=== PATIENT | female | born 2000 | race Caucasian/White ===

== ENCOUNTER 2024-02-18 07:24 | Observation (INO) | payer MEDICAID, SELFPAY ==
[2024-02-18 07:46] VITALS: BP 123/65; PULSE 110
[2024-02-18 08:46] LABS: Bilirubin Urine NEGATIVE (NEGATIVE); Blood Urine NEGATIVE (NEGATIVE); Clarity Urine CLEAR (CLEAR); Color Urine LT. YELLOW (YELLOW); Glucose Urine UA NEGATIVE (NEGATIVE); Ketones Urine NEGATIVE (NEGATIVE); Leukocyte Esterase Urine NEGATIVE (NEGATIVE); Nitrite Urine NEGATIVE (NEGATIVE); Protein Urine NEGATIVE (NEG/TRACE); Specific Gravity Urine 1.015 (1.005-1.025); Urobilinogen Urine 0.2 EU/dL (0.2-1.0); pH Urine 7.5 (5.0-9.0)
[2024-02-18 08:48] LABS: Urine Microscopic Indicated NO
[2024-02-18 08:52] VITALS: BP 115/69; PULSE 93
--- NOTE | 2024-02-18 10:15 | PC.NURSE ---
0735- Pt arrives to [facility] via ambulatory with support person. Pt complaining of MADSEN and upper extremities tingling upon awakening this AM. Pt is a pt of OB in [place]. Pt states she would like to transfer care to . Pt denies risk factors with this . Pt reports having sinus issues since Thanksgiving w/o any treatment. Pt denies pre-eclampsia history or BP issues; Pt reports having some epigastric pain with movement and blurry vision at times. Pt given urine cup for sample.
--- NOTE | 2024-02-18 11:25 | PC.NURSE ---
1000- Pt [facility] discharge instructions given. Pt verbalizes understanding. Prescriptions given to pt.Pt discharged home.
== END 2024-02-18 10:00 | disposition home or self-care (01) ==
PROVIDERS: Admitting Provider Obstetrics & Gynecology; Visit Provider Obstetrics & Gynecology
DX: O26.893 Other specified pregnancy related conditions, third trimester (principal); R51.9 Headache, unspecified; R20.2 Paresthesia of skin; Z3A.30 30 weeks gestation of pregnancy
CPT/HCPCS: 59025; 81003; G0378; G0379

== ENCOUNTER 2024-02-26 17:38 | Observation (INO) | payer MEDICAID, SELFPAY ==
[2024-02-26 17:42] VITALS: O2SAT 99
--- OUTSIDE RECORDS SUMMARY | 2024-02-26 17:43 | XMS_ITS | CCD ---
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 09/16/2023 08:42:34 09/16/2023 08:42:34 RN Exam Complete 09/16/2023 08:36:23 09/16/2023 08:41:54 09/16/2023 08:41:54 Registration Complete 09/16/2023 08:38:39 09/16/2023 08:38:39 09/16/2023 08:38:39 Reg Complete Request 09/16/2023 08:38:39 Reg Bed Request Complete 09/16/2023 08:38:39 09/16/2023 08:38:39 09/16/2023 08:38:39 Registration Request 09/16/2023 08:42:34 Pending Labs Complete 09/16/2023 08:43:57 09/16/2023 09:10:32 Lab Complete 09/16/2023 08:43:57 09/16/2023 09:10:32 Urine Collect Complete 09/16/2023 08:43:57 09/16/2023 09:10:32 Dr Exam Complete 09/16/2023 08:44:01 09/16/2023 08:44:01 09/16/2023 08:44:01 Discharge Complete 09/16/2023 09:35:04 09/16/2023 09:41:47 09/16/2023 09:41:47 Transfer Complete 09/16/2023 09:41:47 09/16/2023 09:41:47 09/16/2023 09:41:47 ADDRESS: [address] [place] [address] [address] [facility] [id number] PHYS DOC NOTES: MEDICAL INFORMATION: Prescriptions Given: Medications to Continue with No Changes Other Medications aripiprazole (aripiprazole 5 mg Tab) 1 Tablets By Mouth every day. Refills: 2. lactobacillus acidophilus (Acidophilus Probiotic Blend) PATIENT EDUCATION INFORMATION: Instructions: Care; Morning Sickness Follow up: With: Address: When: Abdias Mccann [facility], [facility] [address], [place] [address] Business (1) In 3 days 09/19/2023 With: Address: When: Pari Underwood In 3 days DIAGNOSIS: Nausea/vomiting in ; Normal [facility] ED Note-Physicianon 09-16-19 ED Note-Physician ED Note-Physician Basic Information Time Seen: Mikel Stewart PA-C 09/16/2023 08:42 Chief Complaint pt states had a misleading prenancy test and just wants to get confirmation. LMP 5/16/24. pt denies any vaginal bleeding or pain History of Present Illness Patient is a 23-year-old female that presents today for evaluation of possible . She states that she had a misleading test at home and could not tell if it was positive or negative so she wanted to get tested here for this. She does state that she had a previous and has had similar symptoms to when she was back then feeling a little bit more tired than what she normally is as well as having some mild suprapubic tenderness. She denies any dysuria or urgency but does admit to increased urinary frequency. She denies any fevers, body aches, chills. She admits to mild nausea but no episodes of vomiting. Denies diarrhea, shortness of breath, dyspnea, chest pain. She denies any vaginal bleeding or pain. Review of Systems No other aggravating or relieving factors no other associated symptoms no other prior treatments or complaints. Family: Reviewed and noncontributory Social: lives at home Review of systems negative unless otherwise specified in the HPI. Physical Exam Vitals & Measurements T: 36.8 ?C(Oral) HR: 76(Peripheral) RR: 18 BP: 126/78 SpO2: 100% HT: 160 cm WT: 61.2 kg BMI: 23.91 General: The patient appears well and in no apparent distress. Patient is resting comfortably on cart. Skin: Warm, dry, no pallor noted. Head: Normocephalic, atraumatic Neck: No JVD Eye: PERRLA, EOMI ENT: Moist mucus membranes Cardiovascular: Regular rate and rhythm. Normal peripheral perfusion Respiratory: CTA bilaterally. No respiratory distress no accessory muscle use no obvious audible wheezing Chest Wall: no deformity Musculoskeletal: normal ROM, no deformity, no swelling GI: Soft no obvious distention. No rebound or rigidity. No guarding. Mild suprapubic tenderness. Neurological: A&O moves all extremities equal strength and symmetry Psychiatric: Cooperative and appropriate Medical Decision Making Patient is a 23-year-old female presents today for evaluation of possible . She feels as though she did when she was diagnosed with her last . On exam she does have mild suprapubic tenderness and complaints of urinary frequency. Urine beta-hCG is positive and UA is negative for UTI. She does have some mild nausea but denies wanting anything for this at the time. Her MACHINE FILLER SERVICER is in a different city so we did provide her with Dr. Qureshi for MACHINE FILLER SERVICER follow-up. We discussed proper care as well as the importance of vitamins which she will obtain. Return to ED precautions were reviewed with the patient at length. Assessment/Plan Nausea/vomiting in (O21.9: Vomiting of , unspecified) (Z34.90: Encounter for supervision of normal , unspecified, unspecified trimester) Disposition Plan Patient Discharge Condition Stable Discharge Disposition Home Discharge Prescription List Prescriptions No active prescription medications Follow-up With When Contact Information Abdias Qureshi In 3 days 09/19/2023 EDT [address] [facility] [address] [place] [id number]- [facility] (1) Additional Instructions: Pari Underwood In 3 days Additional Instructions: Patient Education Care Morning Sickness Attestation Patient seen and evaluated by the physician elementary assistant principal. Attending physician was present in the emergency department and supervised care. This visit was performed by both the physician and an APC. I performed all aspects of the MDM as documented. This report was transcribed using voice recognition software. Every effort was made to ensure accuracy, however, inadvertently computerized phytochemistry professor mistakes may be present. Appropriate healthcare PPE was used in evaluating this patient. The patient was placed in a mask. The healthcare provider was wearing mask, gloves, and utilizing proper hand hygiene. All equipment was properly cleansed. I performed a substantive part of the MDM during the patient?s E/M visit. I personally made or approved the documented management plan and acknowledge its risk of complications. (Independent Interpretation) My (EKG/X-Ray/US/CT as applicable) interpretation as above. (Discussion) Management/test interpretation discussed with APC. Problem List/Past Medical History Ongoing BMI 23.0-23.9, adult Major depressive disorder, recurrent episode, moderate Historical No qualifying data Procedure/Surgical History None. Medications Inpatient No active inpatient medications Home Acidophilus Probiotic Blend, Not taking aripiprazole 5 mg Tab, 5 mg= 1 tab(s), Oral, Daily, 2 refills Allergies No Known Medication Allergies Social History Alcohol Current, Beer, Liquor, 1-2 times per month, 08/13/2023 S (more content not included)... Normal [facility] Comment on above: Result Comment: Elec tronically Signed By: Mikel Stewart PA-C\.br\Date and Time Signed: 09/16/23 09:36 EDT\.br\Electronically Co-Signed By: Jl Medina M.D.\.br\Date and Time Co-Signed: 09/16/23 11:27 EDT ED Patient Summaryon 024 ED Patient Summary ED Patient Summary [address] [address] Patient Discharge Instructions Person Information Name: KATHRIN SANTANA Age: 23 Years Arrival Date: 09/16/2023 08:33:42 Discharge Diagnosis: Nausea/vomiting in ; Primary Care Physician: Pari Underwood PA-C Provider Information Primary Provider: Jl Medina M.D. [facility] Aide:Mikel Stewart PA-C The exam and treatment you received in the Emergency Department were for an urgent problem and are not intended as complete care. It is important that you follow up with a doctor, nurse practitioner, or physician?s elementary assistant principal for ongoing care. If your symptoms become worse or you do not improve as expected and you are unable to reach your usual health care provider, you should return to the Emergency Department. We are available 24 hours a day. KATHRIN SANTANA has been given the following list of patient education materials, prescriptions and follow-up instructions: Follow-up Instructions: With: Address: When: Abdias Qureshi [address] [place], [place] [id number] [facility] (1) In 3 days 09/19/2023 With: Address: When: Pari Underwood In 3 days In the event that this physician does not participate in your insurance network, please consult with your insurance company to find a nearby participating provider. Patient Education Materials: Care; Morning Sickness A MESSAGE TO ALL PATIENTS REGARDING OPIOIDS PRESCRIPTION OPIOIDS: WHAT YOU NEED TO KNOW Prescription opioids can be used to help relieve ghzmeqin-rq-vwmhup pain and are often prescribed following a surgery or injury, or for certain health conditions. These medications can be an important part of the treatment but also come with serious risks. It is important to work with your healthcare provider to make sure you are getting the safest, most effective care. WHAT ARE THE RISKS AND SIDE EFFECTS OF OPIOID USE? Prescription opioids carry serious risks of addiction and overdose, especially with prolonged use. An opioid overdose, often marked by slowed breathing, can cause sudden . The use of prescription opioids can have a number of side effects as well, even when taken as directed: ? Tolerance?meaning you might need to take more of the medication for the same pain relief ? Physical dependence?meaning you have symptoms of withdrawal when a medication is stopped ? Increased sensitivity to pain ? Constipation ? Nausea, vomiting, and dry mouth ? Sleepiness and dizziness ? Confusion ? Depression ? Low levels of testosterone that can result in lower sex drive, energy, and strength ? Itching and sweating RISKS ARE GREATER WITH: ? History of drug misuse, substance use disorder, or overdose ? Mental health conditions (such as depression or anxiety) ? Sleep apnea ? Older age (65 years and older) ? Avoid alcohol while taking prescription opioids. Also, unless specifically advised by your health care provider, medications to avoid include: ? Benzodiazepines (such as Xanax or Valium) ? Muscle relaxants (such as Soma or Flexeril) ? Hypnotics (such as Ambien or Lunesta) ? Other prescription opioids KNOW YOUR OPTIONS Talk to your health care provider about ways to manage your pain that don?t involve prescription opioids. Some of these options may actually work better and have fewer risks and side effects. Options may include: ? Pain relievers such as acetaminophen, ibuprofen, and naproxen ? Some medication that are also used for depression or seizures ? Physical therapy and exercise ? Cognitive behavioral therapy, a psychological, goal-directed approach, in which patients learn how to modify physical, behavioral, and emotional triggers of pain and stress. IF YOU ARE PRESCRIBED OPIOIDS FOR PAIN: ? Never take opioids in greater amounts or more often than prescribed. ? Follow up with your primary health care provider. o Work together to create a plan on how to manage your pain. o Talk about ways to help manage your pain that don?t involve prescription opioids. o Talk about any and all concerns and side effects. ? Help prevent misuse and abuse o Never sell or share prescription opioids. o Never use another person?s prescription opioids. ? Store prescription opioids in a secure place and out of reach of others (this may include visitors, children, friends, and family). ? Safely dispose of unused prescription opioids: Find your community drug take-back program or your pharmacy mail-back program, or flush them down the toilet, following guidance from the Food and Drug Administration (www.fda.gov/Drugs/R esourcesForYou). ? Visit www.cdc.gov/drugover dose to learn about the risks of opioids abuse and overdose. ? If you believe you may be struggling with addiction, tell your he (more content not included)... Normal [facility] Family Medicine Office/Clini c Noteon 09-16-2023 Family Medicine Office/Clinic Note Family Medicine Office/Clinic Note Chief Complaint Here for medicatiion refill History of Present Illness Kathrin Santana is a 23-year-old female here for follow-up. The patient recently started on Abilify 10 mg daily and has since found out that she is currently at first trimester . The patient has been well over the past few weeks, expressing satisfaction with the efficacy of her Abilify, which she reports as beneficial. Abilify has resulted in increased calmness and improved her quality of life. She experienced mild headaches as a side effect of the medication, but these have subsided over the past few days due to depletion of her supply. Her vitamin D has been proved beneficial. Other than that, she reports feeling fatigued from the medication. She is currently on a regimen of Abilify 5 mg, 2 tablets daily. Her sleep quality has improved, although she continues to experience mild anxiety and depression, albeit with some improvement. She denies experiencing any numbness. The patient is scheduled for a follow-up appointment with her Dr. Nahed Stewart, business loan processor tomorrow, during which her business loan processor has agreed to maintain her current medication regimen and monitor her condition. She has discontinued the use of control, having only used it for 1 to 2 weeks in the past. She expresses excitement and nervousness about her , despite having never had 2 children. Her anxiety and depression scores have improved. Patient has no other questions or concerns at this time. Review of Systems PHQ Score Initial Depression Screen Score: 0 SCORE Negative unless stated in HPI. Physical Exam Vitals & Measurements T: 36.6 ?C(Oral) HR: 74(Peripheral) RR: 18 BP: 110/68 SpO2: 98% HT: 63 in HT: 160 cm WT: 60.7 kg WT: 133.54 lb BMI: 23.71 General: Young adult female, well hydrated, no acute distress Lungs: Normal respiratory effort and clear to auscultation Cardio: Regular rate and rhythm, normal S1 and S2, no murmur, no rub Neurologic: Grossly normal Lymph Nodes: No cervical adenopathy, nodes normal Mental Status: Alert and oriented x3. Normal mood and affect Assessment/Plan 1. Major depressive disorder, recurrent episode, moderate (F33.1: Major depressive disorder, recurrent, moderate) The patient is advised to continue with the daily dose of Abilify 5 mg. Should the depressive symptoms persist or worsen or fail to improve, the patient is advised to contact the office for further recommendations. Additionally, she is advised to maintain close follow-up with the business loan processor. 2. (Z34.90: Encounter for supervision of normal , unspecified, unspecified trimester) The patient will continue her follow-up with the OBGYN for management. 3. BMI 23.0-23.9, adult (Z68.23: Body mass index [BMI] 23.0-23.9, adult) The standard range for ages 18 and older is >=18.5 and < 25 kg/m2. Your BMI today was within this range. Your BMI and weight management will be followed at subsequent visits. Portions of this record may have been created with voice recognition artificial intelligence software, specifically [employer], [employer] and or [employer]Way. Substitutions may have occurred due to the inherent limitations of voice recognition and artificial intelligence software. ATTESTATION: This note has been generated by [employer] and edited by Brooke Carcamo, Quality Beading Installer. Follow-up With When Contact Information Pari Underwood PA-C In 3 months [address] [place] [phone] Additional Instructions: Patient Education Major Depressive Disorder, Adult Problem List/Past Medical History Ongoing BMI 23.0-23.9, adult Major depressive disorder, recurrent episode, moderate Historical No qualifying data Procedure/Surgical History None. Medications Acidophilus Probiotic Blend, Not taking aripiprazole 5 mg Tab, 5 mg= 1 tab(s), Oral, Daily, 2 refills Allergies No Known Medication Allergies Social History Alcohol Current, Beer, Liquor, 1-2 times per month, 08/13/2023 Substance Abuse - Denies Substance Abuse, 08/13/2023 Tobacco Never (less than 100 in lifetime) Tobacco Use:. Current vaping or e-cigarette use Smokeless Tobacco Use:. Vaping, Stopped age 23 Years., 09/13/2023 Family History Alcoholism: Father and Brother. Anxiety: Mother and Father. Depression: Mother and Father. Normal [facility] Comment on above: Result Comment: Elec tronically Signed By: Kj PRATT, Pari Mendoza\.br\Date and Time Signed: 09/16/23 12:42 EDT\.br\Electronically Co-Signed By: Jessica Cagle\.br\Date and Time Co-Signed: 09/13/23 12:51 EDT SEROLOGYOrdered By: Rossi Calloway on 09-16-2023 HCG.beta subunit (U) [Moles/Vol] Positive (09/16/23 8:46 AM) Normal [facility] Man Sero U BetaHcg Qualon 09-16-2023 HCG.beta subunit (U) [Moles/Vol] Positive Normal [facility] Comment on above: Performed By: #### 2 [id number] #### [facility] [address] [place] [id number] UA with Cult Rflxon 09-16-19 24 Bilirubin Ql (U) Negative Normal Negative [facility] Comment on above: Performed By: #### 4 [id number] #### [facility] [address] [place] [address] Clarity (U) Clear Normal Clear [facility] Comment on above: Performed By: #### 4 [id number] #### [facility] [address] [place] [address] Color (U) Light-Yellow Normal Yellow [facility] Comment on above: Result Comment: Micr oscopic readings are only performed on those samples that meet specific criteria set forth by [facility]. Performed By: #### 4 [id number] #### [facility] [address] [place] [address] Glucose Ql (U) Negative Normal Negative [facility] Comment on above: Performed By: #### 4 [id number] #### [facility] [address] [place] [address] Hemoglobin Auto test strip (U) [Mass/Vol] Negative Normal Negative [facility] Comment on above: Performed By: #### 4 [id number] #### [facility] [address] [place] [address] Ketones Auto test strip Ql (U) Negative Normal Negative [facility] Comment on above: Performed By: #### 4 [id number] #### [facility] [address] [place] [address] Leukocyte esterase Auto test strip Ql (U) Negative Normal Negative [facility] Comment on above: Performed By: #### 4 [id number] #### [facility] [address] [place] [address] Nitrite Auto test strip Ql (U) Negative Normal Negative [facility] Comment on above: Performed By: #### 4 [id number] #### [facility] [address] [place] [address] pH (U) 6.5 [pH] Invalid Interpretation Code 5.0-9.0 [facility] Comment on above: Performed By: #### 4 [id number] #### [facility] [address] [place] [address] Protein Ql (U) Negative Normal Negative [facility] Comment on above: Performed By: #### 4 [id number] #### [facility] [address] [place] [address] Specific gravity (U) [Rel density] 1.017 Invalid Interpretation Code 1.005-1.030 [facility] Comment on above: Performed By: #### 4 [id number] #### [facility] [address] [place] [address] Urobilinogen (U) [Mass/Vol] Negative Normal Negative [facility] Comment on above: Performed By: #### 4 [id number] #### [facility] [address] [place] [address] Type of Urine collection method Clean Catch Normal [facility] Comment on above: Performed By: #### 4 [id number] #### [facility] [address] [place] [address] URINALYSISOrdered By: SYSTEM SYSTEM on 09-16-2023 Bilirubin Ql (U) Negative Normal Negativemg/dL [facility] UA Auto SS Clarity (U) Clear (09/16/23 8:46 AM) Normal Clear [facility] UA Auto SS Color (U) Light-Yellow 1 (09/16/23 8:46 AM) Normal Yellow [facility] UA Auto SS Comment on above: Interpretive Data: M icroscopic readings are only performed on those samples that meet specific criteria set forth by [facility]. Glucose Ql (U) Negative Normal Negativemg/dL [facility] UA Auto SS Hemoglobin Auto test strip (U) [Mass/Vol] Negative Normal Negativemg/dL [facility] UA Aut o SS Ketones Auto test strip Ql (U) Negative Normal Negativemg/dL [facility] Auto SS Leukocyte esterase Auto test strip Ql (U) Negative Normal NegativeLeu/uL [facility] UA Auto SS Nitrite Auto test strip Ql (U) Negative Normal Negativemg/dL [facility] UA Auto SS pH (U) 6.5 *NA* (09/16/23 8:46 AM) Invalid Interpretation Code 5.0 - 9.0 [facility] UA Auto SS Protein Ql (U) Negative Normal Negativemg/dL [facility] UA Auto SS Specific gravity (U) [Rel density] 1.017 *NA* (09/16/23 8:46 AM) Invalid Interpretation Code 1.005 - 1.030 [facility] UA Auto SS Urobilinogen (U) [Mass/Vol] Negative Normal Negativemg/dL [facility] UA Auto SS URINALYSISOrdered By: Dulce Lockett on 09-16-2023 UA Spec Desc Clean Catch (09/16/23 8:46 AM) Normal [facility] UA Auto SS Ambulatory Visit Summaryon 0 09-13-2023 Ambulatory Visit Summary Ambulatory Visit Summary KATHRIN SANTANA :2000 Visit Date:09/13/2023 Ambulatory Visit Instructions Your Diagnosis Major depressive disorder, recurrent episode, moderate BMI 23.0-23.9, adult Your Care Team Attending Physician - Pari Underwood PA-C Primary Care Physician - Pari Underwood PA-C This Is Your Medications List aripiprazole (aripiprazole 5 mg Tab) lactobacillus acidophilus (Acidophilus Probiotic Blend) Procedures Performed None. Discharge Vitals Temperature (Oral) 36.6 ?C Heart Rate (Peripheral) 74 Respiratory Rate 18 Blood Pressure 110/68 Height 160 cm Height 63 in Weight 60.7 kg Weight 133.54 lb BMI 23.71 What to do next You Need to Schedule the Following Appointments Follow Up with Pari Underwood PA-C When: In 3 months Where: [address] [place] [phone] Medications What How Much When Instructions New aripiprazole (aripiprazole 5 mg Tab) 1 Tablets By Mouth Every day Refills: 2 Pickup at [facility] #[id number] Unchanged lactobacillus acidophilus (Acidophilus Probiotic Blend) Pharmacy Information [facility] #[id number]: [address], [place] [phone] Allergies No Known Medication Allergies Problems Ongoing - Any problem that you are currently receiving treatment for. BMI 23.0-23.9, adult Patient Survey You may receive a survey via text or e-mail asking about your office visit. Please share your experience with us by completing your survey. We appreciate your feedback and thank you for choosing us for your care. Normal [facility] ED Note-Physicianon 08-31-19 ED Note-Physician [id number] #1.00TIFF Normal [facility] CBC with Diffon 08-30-2023 Abs. Basophil 0.04 k/uL Normal 0.00-0.20 [facility] Comment on above: Performed By: #### C DP #### [facility] [address] [place] [address] Machine Feeder: Gio Peña MD Abs.Imm.Granulocyte 0.02 k/uL Normal 0.00-0.30 [facility] Comment on above: Performed By: #### C DP #### [facility] [address] [place] [address] Machine Feeder: Gio Peña MD Abs.Neutrophil (Seg) 4.62 k/uL Normal 2.5-7.0 [facility] Comment on above: Performed By: #### C DP #### [facility] [address] [place] [address] Machine Feeder: Gio Peña MD Basophils/100 WBC (Bld) 1 % Normal 0-2 [facility] Comment on above: Performed By: #### C DP #### [facility] [address] [place] [address] Machine Feeder: Gio Peña MD Eosinophils (Bld) [#/Vol] 0.09 10*3/uL Normal 0.00-0.40 [facility] Comment on above: Performed By: #### C DP #### [facility] [address] [place] [address] Machine Feeder: Gio Peña MD Eosinophils/100 WBC (Bld) 1 % Normal 0-5 [facility] Comment on above: Performed By: #### C DP #### [facility] [address] [place] [address] Machine Feeder: Gio Peña MD Erythrocyte distribution width (RBC) [Ratio] 12.8 % Normal 12.1-15.2 [facility] Comment on above: Performed By: #### C DP #### [facility] [address] [place] [address] Machine Feeder: Gio Peña MD Hematocrit (Bld) [Volume fraction] 38.0 % Normal 36.0-46.0 [facility] Comment on above: Performed By: #### C DP #### [facility] [address] [place] [address] Machine Feeder: Gio Peña MD Hemoglobin (Bld) [Mass/Vol] 12.5 g/dL Normal 12.0-16.0 [facility] Comment on above: Performed By: #### C DP #### [facility] [address] [place] [address] Machine Feeder: Gio Peña MD Immature granulocytes/100 WBC (Bld) 0 % Normal 0-5 [facility] Comment on above: Performed By: #### C DP #### [facility] [address] [place] [address] Machine Feeder: Gio Peña MD Lymphocytes (Bld) [#/Vol] 1.87 10*3/uL Normal 1.00-4.80 [facility] Comment on above: Performed By: #### C DP #### [facility] [address] [place] [id number] Machine Feeder: Gio Peña MD Lymphocytes/100 WBC (Bld) 26 % Normal 15-40 [facility] Comment on above: Performed By: #### C DP #### [facility] [address] [place] [address] Machine Feeder: Gio Peña MD MCH (RBC) [Entitic mass] 28.2 pg Normal 26.0-34.0 [facility] Comment on above: Performed By: #### C DP #### [facility] [address] [place] [id number] Machine Feeder: Gio Peña MD MCHC (RBC) [Mass/Vol] 32.9 g/dL Normal 31.0-37.0 [facility] Comment on above: Performed By: #### C DP #### [facility] [address] [place] [address] Machine Feeder: Gio Peña MD MCV (RBC) [Entitic vol] 85.8 fL Normal 80.0-100.0 [facility] Comment on above: Performed By: #### C DP #### [facility] [address] [place], [place] [phone] (843) Machine Feeder: Gio Peña MD Monocytes (Bld) [#/Vol] 0.55 10*3/uL Normal 0.00-1.00 [facility] Comment on above: Performed By: #### C DP #### [facility] [address] [place], [place] [id number] (439) Machine Feeder: Gio Peña MD Monocytes/100 WBC (Bld) 8 % Normal 4-8 [facility] Comment on above: Performed By: #### C DP #### [facility] [address] [place], [place] [id number] ([phone]) Machine Feeder: Gio Peña MD Neutrophil (Seg) 64 % Normal 47-75 [facility] Comment on above: Performed By: #### C DP #### [facility] [address] [place], [place] [phone] ([phone]) Machine Feeder: Gio Peña MD Platelet mean volume (Bld) [Entitic vol] 9.7 fL Normal 6.0-12.0 [facility] Comment on above: Performed By: #### C DP #### [facility] [address] [place], [place] [id number] (531) Machine Feeder: Gio Peña MD Platelets (Bld) [#/Vol] 265 10*3/uL Normal 140-450 [facility] Comment on above: Performed By: #### C DP #### [facility] [address] [place], [place] [phone] (214) Machine Feeder: Gio Peña MD RBC (Bld) [#/Vol] 4.43 10*6/uL Normal 4.00-5.20 [facility] Comment on above: Performed By: #### C DP #### [facility] [address] [place], [place] [phone] Machine Feeder: Gio Peña MD WBC (Bld) [#/Vol] 7.2 10*3/uL Normal 4.5-13.5 [facility] Comment on above: Performed By: #### C DP #### [facility] [address] [place] [address] Machine Feeder: Gio Peña MD HCG, Quanton 08-30-2023 HCG, Quant 56169.0 mIU/mL High <5 [facility] Comment on above: Result Comment: Non-preg premeno <=5 Postmeno <=8 Male <=3 If HCG results do not concur with clinical observations, additional testing to confirm results is recommended. Performed By: #### B HCG #### [facility] [address] [place] [address] Machine Feeder: Gio Peña MD Type + Screenon 08-30-2023 Type + Screen Sample Expiration 09/02/2023,2359 ABO/Rh(D) O POSITIVE Antibody Screen NEGATIVE Normal [facility] Comment on above: Performed By: #### T YS #### [facility] [address] [place] [address] Machine Feeder: Gio Peña MD Family Medicine Office/Clini c Noteon 08-19-2023 Family Medicine Office/Clinic Note Chief Complaint Establishing care, New to [facility] c/o mental health, migraines HPI Staff Establish Care: History: Any previous diagnosis: ADHD, bipolar, anxiety, depression, PTSD, migraines History of seeing any specialist(s): no When was your last doctor visit: Last provider: n/a Any recent labs: no Flu Vaccine: Out of Season Health Maintenance: Colonoscopy: n/a Mammogram: n/a Pelvic/pap: unsure Acute: Current issues/complaints: mental health/ migraines took medication for mental health in the past for a short time, then became / breast feeding. Son will be 2 in about a week. History of Present Illness I have reviewed staff HPI and it is correct. Kathrin Santana is a 23-year-old female here to establish care. She is accompanied by her 1-year-old son. She does not currently have a primary care physician. She has concerns regarding mental health and migraines. Patient was previously on Prozac with no improvement and was on Wellbutrin as well for a short period of time. She states that her medical history is mostly noncontributory, aside from a previous skin graft on the gums. She denies history of appendectomy. Currently, she is prescribed a 10-day regimen of metronidazole for bacterial vaginosis, with only 2 days left. She denies the use of any contraceptive methods and has stopped almost a year ago. Her last complete physical examination was performed before the delivery of her son. The patient presents with a chronic history of depression, which has recently worsened to the extent that she has proactively sought assistance. During her period, she was previously prescribed Prozac, and at the age of 19, she was prescribed Depakote. Following a 3-[facility] accompanied by her mother, she received a diagnosis of bipolar disorder. Additionally, she had been taking Wellbutrin for approximately 1.5 months, but discontinued its usage due to suspected seizures associated with her son's . Currently, she resides with her son, a friend, and his mother, as she from her son's father in 03/2023. She is now in search of long-term medication to manage her depression. She reports experiencing significant anxiety, difficulty initiating sleep, and difficulty waking up. She characterizes her depression as a combination of elevated and low moods, with periods of mild depressive episodes lasting for several months. She also describes a sensation of numbness, reminiscent of manic episodes. She continues to experience migraines, but is now less severe than in the past. Patient has no other questions or concerns at this time. Review of Systems PHQ Score Initial Depression Screen Score: 3 SCORE All negative except as noted in the HPI. Physical Exam Vitals & Measurements T: 36.6 ?C(Oral) HR: 88(Peripheral) RR: 16 BP: 122/80 SpO2: 99% HT: 63 in HT: 160 cm WT: 58.9 kg WT: 129.58 lb BMI: 23.01 General: Young adult female, well hydrated, no acute distress. Eyes: EOMI, conjunctiva and sclera are clear Ears: No deformity or lesion of external ear. Canals and TM appear normal bilaterally. TM's intact and pearly kirkpatrick with normal light reflex. Hearing grossly normal and conversational to speech Nose: no deformity, discharge, inflammation or lesions Mouth: Mucous membranes moist with non-erythematous or edematous oropharynx and posterior pharynx. Tongue normal and free of lesions. Neck: supple, trachea is midline with no masses or lymphadenopathy. Thyroid is without nodules or tenderness Lungs: Normal respiratory effort and clear to auscultation Cardio: regular rate and rhythm, no murmur or rub Musculoskeletal: No deformity or scoliosis noted. Normal range of motion. Joints normal. No erythema, edema, effusion, or ecchymosis Extremity: No clubbing, cyanosis, edema, or deformity, with normal ROM in both upper and lower bilateral extremities Neurologic: Grossly normal Skin: No rashes, ulcerations, or suspicious lesions on exposed skin Mental Status: Alert and oriented x3. Normal mood and affect Assessment/Plan Total time spent preparing the chart, conducting of the encounter with the patient and family and time spent documenting, reviewing, and ordering tests was 35 minutes. 1. Encounter to establish care (Z76.89: Persons encountering health services in other specified circumstances) The patient's new patient paperwork was reviewed prior to the appointment and her medical history during the appointment. 2. Major depressive disorder, recurrent episode, moderate (F33.1: Major depressive disorder, recurrent, moderate) The patient does have some mood instability. We will go ahead and move forward with treatment with Abilify at a dosage of 2 mg, to be taken once daily for a duration of 2 weeks. Subsequently, the dosage will be increased to 2 tablets daily for a period of 2 weeks. The patient was thoroughly educated on the potential side effects, signs (more content not included)... [facility] Comment on above: Result Comment: Elec tronically Signed By: Pari Underwood PA-C\.br\Date and Time Signed: 08/19/23 20:54 EDT\.br\Electronically Co-Signed By: Julia [email or web address].king\Date and Time Co-Signed: 08/13/23 17:18 EDT Formson 08-16-2023 Forms [id number]# [facility] 0 08-13-2023 Ambulatory Visit Summary KATHRIN SANTANA :2000 Visit Date:08/13/2023 Ambulatory Visit Instructions Your Diagnosis Encounter to establish care Major depressive disorder, recurrent episode, moderate BMI 23.0-23.9, adult Your Care Team Attending Physician - Pari Underwood PA-C Primary Care Physician - Pari Underwood PA-C This Is Your Medications List aripiprazole (aripiprazole 2 mg Tab) lactobacillus acidophilus (Acidophilus Probiotic Blend) metronidazole (MetroNIDAZOLE 500 mg Tab) Procedures Performed None. Discharge Vitals Temperature (Oral) 36.6 ?C Heart Rate (Peripheral) 88 Respiratory Rate 16 Blood Pressure 122/80 Height 160 cm Height 63 in Weight 58.9 kg Weight 129.58 lb BMI 23.01 What to do next Scheduled Follow-Up Appointments Wednesday 10:40 AM EDT With: Pari Underwood PA-C [facility] Patient Educationon 08-13-19 24 Patient Education Mental and Behavioral Health Managing Depression, Adult Depression is a mental health condition that affects your thoughts, feelings, and actions. Being diagnosed with depression can bring you relief if you did not know why you have felt or behaved a certain way. It could also leave you feeling overwhelmed with uncertainty about your future. Preparing yourself to manage your symptoms can help you feel more positive about your future. How to manage lifestyle changes Managing stress Stress is your body's reaction to life changes and events, both good and bad. Stress can add to your feelings of depression. Learning to manage your stress can help lessen your feelings of depression. Try some of the following approaches to reducing your stress (stress reduction techniques): ? Listen to music that you enjoy and that inspires you. ? Try using a meditation vince or take a meditation class. ? Develop a practice that helps you connect with your spiritual self. Walk in nature, pray, or go to a place of catholic. ? Do some deep breathing. To do this, inhale slowly through your nose. Pause at the top of your inhale for a few seconds and then exhale slowly, letting your muscles relax. ? Practice yoga to help relax and work your muscles. Choose a stress reduction technique that suits your lifestyle and personality. These techniques take time and practice to develop. Set aside 5?15 minutes a day to do them. Therapists can offer training in these techniques. Other things you can do to manage stress include: ? Keeping a stress diary. ? Knowing your limits and saying no when you think something is too much. ? Paying attention to how you react to certain situations. You may not be able to control everything, but you can change your reaction. ? Adding humor to your life by watching funny films or TV shows. ? Making time for activities that you enjoy and that relax you. Medicines Medicines, such as antidepressants, are often a part of treatment for depression. ? Talk with your pharmacist or health care provider about all the medicines, supplements, and herbal products that you take, their possible side effects, and what medicines and other products are safe to take together. ? Make sure to report any side effects you may have to your health care provider. Relationships Your health care provider may suggest family therapy, couples therapy, or individual therapy as part of your treatment. How to recognize changes Everyone responds differently to treatment for depression. As you recover from depression, you may start to: ? Have more interest in doing activities. ? Feel less hopeless. ? Have more energy. ? Overeat less often, or have a better appetite. ? Have better mental focus. It is important to recognize if your depression is not getting better or is getting worse. The symptoms you had in the beginning may return, such as: ? Tiredness (fatigue) or low energy. ? Eating too much or too little. ? Sleeping too much or too little. ? Feeling restless, agitated, or hopeless. ? Trouble focusing or making decisions. ? Unexplained physical complaints. ? Feeling irritable, angry, or aggressive. If you or your family members notice these symptoms coming back, let your health care provider know right away. Follow these instructions at home: Activity ? Try to get some form of exercise each day, such as walking, biking, swimming, or lifting weights. ? Practice stress reduction techniques. ? Engage your mind by taking a class or doing some volunteer work. Lifestyle ? Get the right amount and quality of sleep. ? Cut down on using caffeine, tobacco, alcohol, and other potentially harmful substances. ? Eat a healthy diet that includes plenty of vegetables, fruits, whole grains, low-fat dairy products, and lean protein. Do not eat a lot of foods that are high in solid fats, added sugars, or salt (sodium). General instructions ? Take ioog-vqx-mfpejpo and prescription medicines only as told by your health care provider. ? Keep all follow-up visits as told by your health care provider. This is important. Where to find support Talking to others Friends and family members can be sources of support and guidance. Talk to trusted friends or family members about your condition. Explain your symptoms to them, and let them know that you are working with a health care provider to treat your depression. Tell friends and family members how they also can be helpful. Finances ? Find appropriate mental health providers that fit with your financial situation. ? Talk with your health care provider about options to get reduced prices on your medicines. Where to find more information You can find support in your area from: ? Anxiety and Depression Association of [place] (ADAA): www.adaa.org ? Mental Health [place]: www.mentalhealth[place].ne (more content not included)... Normal [facility] CHLAMYDIA/GCon 08-04-2023 CHLAMYDIA TRACH Not detected Normal NOT DETECTED [facility] Comment on above: Performed By: #### C TNG #### [place] [address] N.GONORRHOEAE Not detected Normal NOT DETECTED [facility] Comment on above: Result Comment: TEST ING PERFORMED BY PCR Testing performed at [place] [address] Performed By: #### C TNG #### [place] [address] CHLAMYDIA/GONOCOCCUS, NAAon 08-04-2023 CHLAMYDIA TRACHOMATIS Not detected NOT DETECTED [facility] NEISSERIA GONORRHOEAE Not detected NOT DETECTED [facility] Comment on above: TESTING PERFORMED BY PCR Testing performed at [address] TRICH VAGon 08-04-2023 TRICH VAG Not detected Normal NOT DETECTED [facility] Comment on above: Result Comment: TEST ING PERFORMED BY PCR Testing performed at [place] [address] Performed By: #### A TV #### [place] [address] TRICHOMONAS VAGINALIS, NAAon 08-04-2023 T. vaginalis rRNA TELMA+probe Ql (Unsp spec) Not detected NOT DETECTED [facility] Comment on above: TESTING PERFORMED BY PCR Testing performed at [address] CHLAMYDIA/GCon 04-16-2023 CHLAMYDIA TRACH Not detected Normal NOT DETECTED [facility] Comment on above: Performed By: #### C TNG #### [place] [address] N.GONORRHOEAE Not detected Normal NOT DETECTED [facility] Comment on above: Result Comment: TEST ING PERFORMED BY PCR Testing performed at [place] [address] Performed By: #### C TNG #### [place] [address] CHLAMYDIA/GONOCOCCUS, NAAon 04-16-2023 CHLAMYDIA TRACHOMATIS Not detected NOT DETECTED [facility] NEISSERIA GONORRHOEAE Not detected NOT DETECTED [facility] Comment on above: TESTING PERFORMED BY PCR Testing performed at [address] TRICH VAGon 04-16-2023 TRICH VAG Not detected Normal NOT DETECTED [facility] Comment on above: Result Comment: TEST ING PERFORMED BY PCR Testing performed at [place] [address] Performed By: #### C TNG #### [place] [address] TRICHOMONAS VAGINALIS, NAAon 04-16-2023 T. vaginalis rRNA TELMA+probe Ql (Unsp spec) Not detected NOT DETECTED [facility] Comment on above: TESTING PERFORMED BY PCR Testing performed at [address] XR RIBS WITH CHEST, RIGHTon 10-24-2022 XR RIBS WITH CHEST, RIGHT EXAMINATION: XR RIBS WITH CHEST, RIGHT HISTORY: Right rib pain TECHNIQUE: Frontal view of the chest and 4 views of the right ribs obtained COMPARISON: None FINDINGS: The cardiomediastinal silhouette is within normal limits. No pneumothorax, pleural effusion, or focal consolidation. Osseous structures of the thorax are intact; no displaced rib fractures identified. IMPRESSION: No acute findings. Normal [facility] CHLAMYDIA/GCon 10-23-2022 CHLAMYDIA TRACH Not detected Normal NOT DETECTED [facility] Comment on above: Performed By: #### C TNG #### [place] [address] N.GONORRHOEAE Not detected Normal NOT DETECTED [facility] Comment on above: Result Comment: TEST ING PERFORMED BY PCR Testing performed at [place] [address] Performed By: #### C TNG #### [place] [address] CHLAMYDIA/GONOCOCCUS, NAAon 10-23-2022 CHLAMYDIA TRACHOMATIS Not detected NOT DETECTED [facility] NEISSERIA GONORRHOEAE Not detected NOT DETECTED [facility] Comment on above: TESTING PERFORMED BY PCR Testing performed at [address] TRICH VAGon 10-23-2022 TRICH VAG Not detected Normal NOT DETECTED [facility] Comment on above: Result Comment: TEST ING PERFORMED BY PCR Testing performed at [place] [address] Performed By: #### A TV #### [place] [address] TRICHOMONAS VAGINALIS, NAAon 10-23-2022 T. vaginalis rRNA TELMA+probe Ql (Unsp spec) Not detected NOT DETECTED [facility] Comment on above: TESTING PERFORMED BY PCR Testing performed at [address] CBC, EDIF, PLATELETon 2021 ABSOLUTE BASOPHIL COUNT 0.0 10*3/uL 0.0 - 0.2 10*3/uL [facility] Comment on above: Testing performed at [place] [address] Basophils/100 WBC (Bld) 0.5 % 0.0 - 2.0 % [facility] Differential cell count method Nom (Bld) AUTO DIFF % [facility] Eosinophils (Bld) [#/Vol] 0.20 10*3/uL 0.0 - 0.7 10*3/uL [facility] Eosinophils/100 WBC (Bld) 1.9 % 0.0 - 11.0 % [facility] Erythrocyte distribution width (RBC) [Ratio] 13.1 % 11.5 - 14.5 % [facility] Hematocrit (Bld) [Volume fraction] 32.9 % Low 36.0 - 48.0 % [facility] Hemoglobin (Bld) [Mass/Vol] 11.5 g/dL Low [facility] Interpretation and review of laboratory results Abnormal [facility] Lymphocytes (Bld) [#/Vol] 1.50 10*3/uL 1.2 - 3.4 10*3/uL [facility] Lymphocytes/100 WBC (Bld) 17.3 % Low 20.0 - 55.0 % [facility] MCH (RBC) [Entitic mass] 31.1 pg 26.0 - 35.0 PG [facility] MCHC (RBC) [Mass/Vol] 35.0 g/dL [facility] MCV (RBC) [Entitic vol] 89.0 fL [facility] Monocytes (Bld) [#/Vol] 0.8 10*3/uL High 0.0 - 0.7 10*3/uL [facility] Monocytes/100 WBC (Bld) 8.6 % 0.0 - 10.0 % [facility] Neutrophils (Bld) [#/Vol] 6.3 10*3/uL 1.4 - 6.5 10*3/uL [facility] Neutrophils/100 WBC (Bld) 71.7 % 37.0 - 75.0 % [facility] Platelet mean volume (Bld) [Entitic vol] 8.4 fL [facility] Platelets (Bld) [#/Vol] 226 10*3/uL 130.0 - 400.0 10*3/uL [facility] RBC (Bld) [#/Vol] 3.69 10*6/uL Low 4.0 - 5.4 10*6/uL [facility] WBC (Bld) [#/Vol] 8.8 10*3/uL 3.6 - 11.0 10*3/uL [facility] GLUCOSE POST LOADINGon 06-02 Glucose 1 Hr post 50 g glucose PO [Mass/Vol] 93 mg/dL [facility] Comment on above: Testing performed at [place], [place] [address] [facility] COLPOSCOPYon 03-13-2021 Doyle Amaro MD 03/13/2021 11:15 AM COLPOSCOPY Date/Time: 03/13/2021 10:20 AM Performed by: Doyle Amaro MD Authorized by: Doyle Amaro MD Pre-Procedure: Pap Result: Low grade squamous intraepithelial lesion (LGSIL). The patient was given a verbal description of the intended procedure including the risks and benefits of the procedure. The patient was then able to provide written informed consent for the above procedure. Current method of control: . Procedure: Procedure: Colposcopy w/ biopsy of cervix With patient in supine lithotomy position, speculum placed in vagina. Excellent visualization of the cervix achieved and the affected area was swabbed with acetic acid. The exam was adequate. Excision was accomplished with colposcopic guidance. Biopsy Description: 12:00. Hemostasis achieved with monsels. The specimen was sent to pathology. Estimated Blood Loss: minimal Post-procedure: The patient tolerated the procedure well. She was advised to call for any fever, severe pain or heavy bleeding. She was advised to use over the counter analgesics as needed for mild to moderate pain. [facility] Narrative [Interpretat ion] Study observation general USon 02-06-2021 : 1. Single of 11 weeks and 5 days. 2. heart rate of 168 bpm. 3. US SEBASTIAN 08/23/2021, which is inconsistent with SEBASTIAN by LMP and should be changed. [facility] REFERRING PHYSICIAN: Dr. Amaro TECHNOLOGIST: Ashley Acosta PROCEDURE DATE : 02/06/2021 INDICATIONS: Early gestational, dating LMP 11/09/2020, SEBASTIAN 08/16/2021 PROCEDURE DETAILS A single was noted within the uterus. heart rate of 168 bpm. The CRL measures 5.03 cm , 11 weeks 5 days. FINAL [facility] Radiology Study observation (narrative) [facility] ABO/RH(D) TYPINGon 1 ABO and Rh group Nom (Bld ) Positive [facility] ABO and Rh group Nom (Bld ) Testing performed at [place], [place] [address] [facility] ANTIBODY SCREENon 01-14-2021 Blood group antibody screen Ql Negative [facility] EXPIRATION DATE 01/17/2021,2359 [facility] EXPIRATION DATE Testing performed at [place], [place] [address] [facility] CBC, EDIF, PLATELETon 2020 ABSOLUTE BASOPHIL COUNT 0.0 10*3/uL 0.0 - 0.2 10*3/uL [facility] Comment on above: Testing performed at [place], [place] [address] Basophils/100 WBC (Bld) 0.6 % 0.0 - 2.0 % [facility] Differential cell count method Nom (Bld) AUTO DIFF % [facility] Eosinophils (Bld) [#/Vol] 0.10 10*3/uL 0.0 - 0.7 10*3/uL [facility] Eosinophils/100 WBC (Bld) 1.3 % 0.0 - 11.0 % [facility] Erythrocyte distribution width (RBC) [Ratio] 13.5 % 11.5 - 14.5 % [facility] Hematocrit (Bld) [Volume fraction] 35.9 % Low 36.0 - 48.0 % [facility] Hemoglobin (Bld) [Mass/Vol] 12.2 g/dL [facility] Interpretation and review of laboratory results Abnormal [facility] Lymphocytes (Bld) [#/Vol] 2.40 10*3/uL 1.2 - 3.4 10*3/uL [facility] Lymphocytes/100 WBC (Bld) 34.3 % 20.0 - 55.0 % [facility] MCH (RBC) [Entitic mass] 28.7 pg 26.0 - 35.0 PG [facility] MCHC (RBC) [Mass/Vol] 33.9 g/dL [facility] MCV (RBC) [Entitic vol] 84.7 fL [facility] Monocytes (Bld) [#/Vol] 0.7 10*3/uL 0.0 - 0.7 10*3/uL [facility] Monocytes/100 WBC (Bld) 9.7 % 0.0 - 10.0 % [facility] Neutrophils (Bld) [#/Vol] 3.8 10*3/uL 1.4 - 6.5 10*3/uL [facility] Neutrophils/100 WBC (Bld) 54.1 % 37.0 - 75.0 % [facility] Platelet mean volume (Bld) [Entitic vol] 9.3 fL [facility] Platelets (Bld) [#/Vol] 289 10*3/uL 130.0 - 400.0 10*3/uL [facility] RBC (Bld) [#/Vol] 4.23 10*6/uL 4.0 - 5.4 10*6/uL [facility] WBC (Bld) [#/Vol] 7.1 10*3/uL 3.6 - 11.0 10*3/uL [facility] HIV 1+2 Ab+HIV1 p24 Ag IA Ql on 01-14-2021 HIV 1+2 Ab IA Ql Non-Reactive NONREACTIVE [facility] Comment on above: Testing performed at [address] RAPID TOX SCREEN WITH RELEX TO DRUGMCon 01-14-2021 Amphetamine (U) [Mass/Vol] Negative NEGATIVE NG/ML [facility] Comment on above: <500 ng/ml CUTOFF Barbiturates Screen Ql (U) Negative NEGATIVE NG/ML [facility] Comment on above: <200 ng/ml CUTOFF Benzodiazepines Ql (U) Negative NEGATIVE NG/ML [facility] Comment on above: <150 ng/ml CUTOFF Benzoylecgonine Ql (U) Negative NEGATIVE NG/ML [facility] Comment on above: <150 ng/ml CUTOFF Buprenorphine Ql (U) Negative NEGATIVE NG/ML [facility] Comment on above: <10 ng/ml CUTOFF Testing performed at [place] [address] Cannabinoids Screen Ql (U) Positive Abnormal NEGATIVE NG/ML [facility] Comment on above: <50 ng/ml CUTOFF *Unconfirmed Screening Result* Unconfirmed screening results are to be used only for medical treatment purposes. Interpretation and review of laboratory results Abnormal [facility] Methadone Screen Ql (U) Negative NEGATIVE NG/ML [facility] Comment on above: <200 ng/ml CUTOFF Methamphetamine (U) [Mass/Vol] Negative NEGATIVE NG/ML [facility] Comment on above: <500 ng/ml CUTOFF Opiates Screen Ql (U) Negative NEGATIVE NG/ML [facility] Comment on above: <100 ng/ml CUTOFF oxyCODONE Ql (U) Negative NEGATIVE NG/ML [facility] Comment on above: <100 ng/ml CUTOFF Phencyclidine Screen method >25 ng/mL Ql (U) Negative NEGATIVE NG/ML [facility] Comment on above: <25 ng/ml CUTOFF Propoxyphene+Norpropo xyphene Screen Ql (U) Negative NEGATIVE NG/ML [facility] Comment on above: <300 ng/ml CUTOFF Tricyclic antidepressants Screen Ql (U) Negative NEGATIVE NG/ML [facility] Comment on above: <300 ng/ml CUTOFF [facility] REQUEST FOR MISC LAB SENDOUT on 01-14-2021 Miscellaneous Test 1 SPECIMEN SENT TO REFERENCE LAB FOR TESTING [facility] Comment on above: [id number] CANNABINOID Testing performed at [place], [place] [id number] [place] [address] Chlamydia/GC,DNA Ampon 08-09 Chlamydia Probe Negative Normal NEG [facility] Comment on above: Result Comment: CHLA MYDIA TRACHOMATIS DNA not detected by nucleic acid amplification. This test is intended for medical purposes only and is not valid for the evaluation of suspected sexual abuse or for other forensic purposes. In certain contexts, culture may be required to meet applicable laws and regulations for diagnosis of C. trachomatis and N. gonorrhoeae infections. Per 2014 CDC recommendations, this test does not include confirmation of positive results by an alternative nucleic acid target. Performed By: #### S [facility] #### [id number] [place] [address] Machine Feeder: Geovani Cordon MD Gonorrhea Probe Negative Normal NEG [facility] Comment on above: Result Comment: NEIS SERIA GONORRHOEAE DNA not detected by nucleic acid amplification. This test is intended for medical purposes only and is not valid for the evaluation of suspected sexual abuse or for other forensic purposes. In certain contexts, culture may be required to meet applicable laws and regulations for diagnosis of C. trachomatis and N. gonorrhoeae infections. Per 2014 CDC recommendations, this test does not include confirmation of positive results by an alternative nucleic acid target. Performed By: #### S [facility] #### [facility] [employer] [address] [place] [address] Machine Feeder: Geovani Cordon MD Herpes 1+2 Molecularon 08-09 HSV-1, NAAT Negative Normal [facility] Comment on above: Result Comment: HSV- 1 DNA not detected by nucleic acid amplification Performed By: #### H BS, HSVDNA, TREP, AHCV, HIVCMB #### [facility] [address] [place] [address] Machine Feeder: Geovani Cordon MD HSV-2, NAAT Negative Normal [facility] Comment on above: Result Comment: HSV- 2 DNA not detected by nucleic acid amplification Performed By: #### H BS, HSVDNA, TREP, AHCV, HIVCMB #### [facility] [employer] [facility] [place] [address] Machine Feeder: Geovani Cordon MD Vaginitis DNA Probeon 2020 Vaginitis DNA Probe Specimen Description .VAGINA Special Requests NOT REPORTED Direct Exam POSITIVE for Gardnerella vaginalis. NEGATIVE for Gonzalez sp. NEGATIVE for Trichomonas vaginalis Method of testing is a DNA probe intended for detection and identification of Gonzalez species, Gardnerella vaginalis, and Trichomonas vaginalis nucleic acid in vaginal fluid specimens from patients with symptoms of vaginitis/vaginosis. Report Status FINAL 08/09/2020 [facility] Comment on above: Performed By: #### V AGDNA #### [facility] [employer] [facility] [place] [address] Machine Feeder: Geovani Cordon MD [facility] [address] [place] [address] Machine Feeder: Gio Peña MD HIV Ag/Abon 08-08-2020 HIV Ag/Ab Non-Reactive Normal NR [facility] Comment on above: Result Comment: No l aboratory evidence of HIV infection. If acute HIV infection is suspected, consider testing for HIV-1 RNA. Performed By: #### H BS, HSVDNA, TREP, AHCV, HIVCMB #### [facility] [employer] [address] [place] [address] [id number] Machine Feeder: Geovani Cordon MD Hep B Surf Agon 08-08-2020 Hep B Surf Ag Non-Reactive Normal [facility] Comment on above: Performed By: #### H BS, HSVDNA, TREP, AHCV, HIVCMB #### [address] [address] Machine Feeder: Geovani Cordon MD Hep C Abon 08-08-2020 Hep C Ab Non-Reactive Normal [facility] Comment on above: Result Comment: The hepatitis C procedure used in our laboratory is a Chemiluminescent test specific for three recombinant HCV antigens. A negative anti-HCV result indicates that the antibodies to hepatitis C virus are not present at this time. Individuals with reactive anti-HCV should be considered infected and infectious until proven otherwise. Confirmation of all equivocal or reactive results is recommended by ordering HCV RNA by PCR. Performed By: #### H BS, HSVDNA, TREP, AHCV, HIVCMB #### [facility] [employer] [address] [place] [id number] Machine Feeder: Geovani Cordon MD Herpes 1+2 Molecularon 08-08 Source: NOT REPORTED Normal [facility] Comment on above: Performed By: #### H BS, HSVDNA, TREP, AHCV, HIVCMB #### [address] [address] Machine Feeder: Geovani Cordon MD T.pallidum Ab Screenon 08-08 T.pallidum Ab Screen Non-Reactive Normal [facility] Comment on above: Result Comment: T. pallidum antibodies are not detected. There is no serological evidence of infection with T. pallidum (early primary syphilis cannot be excluded). Retest in 2-4 weeks if syphilis is clinically suspect. Performed By: #### H BS, HSVDNA, TREP, AHCV, HIVCMB #### [facility] [employer] [address] [place] [address] [id number] Machine Feeder: Geovani Cordon MD CBC W/DIFFon 09-29-2019 ABS BASOPHILS 0.1 10*3/uL Normal 0.0-0.2 [facility] Comment on above: Order Comment: No: D o not add to previous draw Performed By: #### 5 0103 #### [facility] [address] [place] [address], [facility] ABS IMM GRANS 0.0 10*3/uL Normal 0.0-0.2 [facility] Comment on above: Order Comment: No: D o not add to previous draw Performed By: #### 5 0103 #### [facility] [address] [facility] [place] [address], [facility] ABS NEUTROPHILS 2.1 10*3/uL Normal 1.6-7.6 [facility] Comment on above: Order Comment: No: D o not add to previous draw Performed By: #### 5 0103 #### [facility] [address] [place] [address], [facility] Basophils/100 WBC (Bld) 1.2 % High 0.0-1.0 [facility] Comment on above: Order Comment: No: D o not add to previous draw Performed By: #### 5 0103 #### [facility] [address] [place] [address], [facility] Eosinophils (Bld) [#/Vol] 0.3 10*3/uL Normal 0.0-0.5 [facility] Comment on above: Order Comment: No: D o not add to previous draw Performed By: #### 5 0103 #### [facility] [address] [place] [address], [facility] Eosinophils/100 WBC (Bld) 4.5 % Normal 0.0-6.0 [facility] Comment on above: Order Comment: No: D o not add to previous draw Performed By: #### 5 0103 #### [facility] [address] [place] [address], [facility] Erythrocyte distribution width (RBC) [Ratio] 14.0 % Normal 11.5-15.0 [facility] Comment on above: Order Comment: No: D o not add to previous draw Performed By: #### 5 0103 #### [facility] [address] [place] [address], [facility] Hematocrit (Bld) [Volume fraction] 39.7 % Normal 36.0-45.0 [facility] Comment on above: Order Comment: No: D o not add to previous draw Performed By: #### 5 0103 #### [facility] [address] [place] [address], [facility] Hemoglobin (Bld) [Mass/Vol] 12.9 g/dL Normal 12.0-15.0 [facility] Comment on above: Order Comment: No: D o not add to previous draw Performed By: #### 5 0103 #### [facility] [address] [place] [address], [facility] IMMATURE GRANS 0.3 % Normal 0.0-1.0 [facility] Comment on above: Order Comment: No: D o not add to previous draw Performed By: #### 5 0103 #### [facility] [address] [place] [address], [facility] Lymphocytes (Bld) [#/Vol] 3.1 10*3/uL Normal 1.2-4.0 [facility] Comment on above: Order Comment: No: D o not add to previous draw Performed By: #### 5 0103 #### [facility] [address] [place] [address], [facility] Lymphocytes/100 WBC (Bld) 51.7 % High 20.0-45.0 [facility] Comment on above: Order Comment: No: D o not add to previous draw Performed By: #### 5 0103 #### [facility] [address] [place] [address], [facility] MCH (RBC) [Entitic mass] 27.7 pg Normal 27.0-33.0 [facility] Comment on above: Order Comment: No: D o not add to previous draw Performed By: #### 5 0103 #### [facility] [address] [place] [address], [facility] MCHC (RBC) [Mass/Vol] 32.5 g/dL Normal 32.0-35.0 [facility] Comment on above: Order Comment: No: D o not add to previous draw Performed By: #### 5 0103 #### [facility] [address] [place] [id number], [facility] MCV (RBC) [Entitic vol] 85.2 fL Normal 82.0-98.0 [facility] Comment on above: Order Comment: No: D o not add to previous draw Performed By: #### 5 3 #### [facility] [address] [place] [id number], [facility] Monocytes (Bld) [#/Vol] 0.4 10*3/uL Normal 0.1-1.0 [facility] Comment on above: Order Comment: No: D o not add to previous draw Performed By: #### 5 3 #### [facility] [address] [place] [address], [facility] MONOS 7.2 % Normal 5.0-12.0 [facility] Comment on above: Order Comment: No: D o not add to previous draw Performed By: #### 5 0103 #### [facility] [address] [place] [address], [facility] Neutrophils/100 WBC (Bld) 35.1 % Low 40.0-72.0 [facility] Comment on above: Order Comment: No: D o not add to previous draw Performed By: #### 5 3 #### [facility] [address] [place] [id number], [facility] Nucleated RBC/100 WBC (Bld) [Ratio] 0 % Normal 0-0 [facility] Comment on above: Order Comment: No: D o not add to previous draw Performed By: #### 5 0103 #### [facility] [address] [place] [address], [facility] PLAT CNT 237 10*3/uL Normal 150-400 [facility] Comment on above: Order Comment: No: D o not add to previous draw Performed By: #### 5 0103 #### [facility] [address] [place] [address], [facility] RBC (Bld) [#/Vol] 4.66 10*6/uL Normal 3.80-5.00 [facility] Comment on above: Order Comment: No: D o not add to previous draw Performed By: #### 5 0103 #### [facility] [address] [place] [address], [facility] WBC (Bld) [#/Vol] 5.96 10*3/uL Normal 4.00-10.60 [facility] Comment on above: Order Comment: No: D o not add to previous draw Performed By: #### 5 0103 #### [facility] [address] [place] [address], [facility] COMP METABOLIC PANELon 09-28 Albumin [Mass/Vol] 4.5 g/dL Normal 3.5-5.7 [facility] Comment on above: Order Comment: No: D o not add to previous draw Performed By: #### 4 4396, 12277, 57272, 94977, 47077, 30651 #### [facility] [address] [place] [address], [facility] ALKALINE PHOSPH 59 IU/L Normal 40-460 [facility] Comment on above: Order Comment: No: D o not add to previous draw Performed By: #### 4 4396, 09279, 46344, 04370, 71260, 24460 #### [facility] [address] [place] [address], [place] ALT [Catalytic activity/Vol] 10 U/L Normal 7-52 [facility] Comment on above: Order Comment: No: D o not add to previous draw Performed By: #### 4 4396, 53576, 30006, 49490, 68360, 83686 #### [facility] [address] [place] [address], [place] AST [Catalytic activity/Vol] 17 U/L Normal 13-39 [facility] Comment on above: Order Comment: No: D o not add to previous draw Performed By: #### 4 4396, 63557, 05021, 42558, 22578, 96622 #### [facility] [address] [place] [address], [place] Bilirubin [Mass/Vol] 0.4 mg/dL Normal 0.3-1.0 [facility] Comment on above: Order Comment: No: D o not add to previous draw Performed By: #### 4 4396, 75945, 35642, 33606, 05797, 03881 #### [facility] [address] [place] [address], [place] Calcium [Mass/Vol] 9.5 mg/dL Normal 8.6-10.3 [facility] Comment on above: Order Comment: No: D o not add to previous draw Performed By: #### 4 4396, 71150, 51241, 98553, 15371, 10523 #### [facility] [address] [place] [address], [place] Chloride [Moles/Vol] 104 mmol/L Normal 98-107 [facility] Comment on above: Order Comment: No: D o not add to previous draw Performed By: #### 4 4396, 48289, 28452, 94321, 71508, 55474 #### [facility] [address] [place] [address], [place] CO2 [Moles/Vol] 28 mmol/L Normal 21-31 [facility] Comment on above: Order Comment: No: D o not add to previous draw Performed By: #### 4 4396, 61291, 01296, 69086, 97666, 60257 #### [facility] [address] [place] [address], [place] Creatinine [Mass/Vol] 0.66 mg/dL Normal 0.60-1.20 [facility] Comment on above: Order Comment: No: D o not add to previous draw Performed By: #### 4 4396, 09110, 37165, 69654, 14160, 19338 #### [facility] [address] [place] [address], [place] GFR/1.73 sq M predicted among blacks MDRD (S/P/Bld) [Vol rate/Area] Calculation not validated for patients under 18 years Abnormal >60 [facility] Comment on above: Order Comment: No: D o not add to previous draw Performed By: #### 4 4396, 44145, 57330, 43068, 28681, 70699 #### [facility] [address] [place] [address], [place] GFR/1.73 sq M predicted among non-blacks MDRD (S/P/Bld) [Vol rate/Area] Calculation not validated for patients under 18 years Abnormal >60 [facility] Comment on above: Order Comment: No: D o not add to previous draw Performed By: #### 4 4396, 95729, 10146, 52590, 94028, 94927 #### [facility] [address] [place] [address], [place] Glucose [Mass/Vol] 139 mg/dL High 70-100 [facility] Comment on above: Order Comment: No: D o not add to previous draw Performed By: #### 4 4396, 12975, 34729, 44402, 10881, 78203 #### [facility] [address] [place] [address], [place] Potassium [Moles/Vol] 3.6 mmol/L Normal 3.5-5.1 [facility] Comment on above: Order Comment: No: D o not add to previous draw Performed By: #### 4 4396, 25358, 86625, 76627, 97203, 92875 #### [facility] [address] [place] [address], [place] Protein [Mass/Vol] 7.2 g/dL Normal 6.0-8.3 [facility] Comment on above: Order Comment: No: D o not add to previous draw Performed By: #### 4 4396, 78007, 20078, 85614, 63290, 22152 #### [facility] [address] [place] [address], [place] Sodium [Moles/Vol] 139 mmol/L Normal 136-145 [facility] Comment on above: Order Comment: No: D o not add to previous draw Performed By: #### 4 4396, 52418, 65519, 95144, 67191, 58379 #### [facility] [address] [place] [address], [place] Urea nitrogen [Mass/Vol] 9 mg/dL Normal 7-25 [facility] Comment on above: Order Comment: No: D o not add to previous draw Performed By: #### 4 4396, 66429, 61046, 32557, 76344, 16920 #### [facility] [address] [place] [address], [place] FREE T3on 09-29-2019 Free T3 [Mass/Vol] 4.2 pg/mL High 2.5-3.9 [facility] Comment on above: Order Comment: No: D o not add to previous draw Performed By: #### 4 4396, 11748, 48651, 53400, 73222, 70968 #### [facility] [address] [place] [address], [place] FREE T4on 09-29-2019 Free T4 [Mass/Vol] 0.82 ng/dL Normal 0.71-1.85 [facility] Comment on above: Order Comment: No: D o not add to previous draw Performed By: #### 4 4396, 00180, [id number], 13599, 71940, 04387 #### [facility] [address] [place] [address], [facility] LIPID PROFILEon 09-29-2019 Cholesterol [Mass/Vol] 153 mg/dL Normal 120-170 [facility] Comment on above: Order Comment: No: D o not add to previous draw Result Comment: CHOL ESTEROL REFERENCE RANGE: 20 YEARS AND OLDER CARDIOVASCULAR RISK Less than 200 mg/dl Low Risk 200 to 239 mg/dl Borderline Risk 240 mg/dl and greater High Risk Performed By: #### [id number], 18073, 48019, 33796, 51755, 70936 #### [facility] [address] [place] [address], [facility] Cholesterol in HDL [Mass/Vol] 56 mg/dL Normal 23-92 [facility] Comment on above: Order Comment: No: D o not add to previous draw Result Comment: Slig ht variation in normal range could be due to gender and/or age. HDL CHOLESTEROL REFERENCE RANGE: 20 years and older Cardiovascular Risk > or =60 mg/dL Desirable 40 TO 59 mg/dL Low Risk <40 mg/dL High Risk Performed By: #### 4 [id number], 12405, 27635, 72895, 91805, 57699 #### [facility] [address] [place] [address], [facility] Cholesterol in LDL [Mass/Vol] 74 mg/dL Normal 0-130 [facility] Comment on above: Order Comment: No: D o not add to previous draw Result Comment: LDL IS A CALCULATION LDL IS ONLY VALID IF THE TRIG IS LESS THAN 400. Performed By: #### 4 [id number], 04891, 47877, 75916, 81126, 60450 #### [facility] [address] [place] [address], [place] Cholesterol.total/Cho lesterol in HDL [Mass ratio] 2.7 {ratio} Normal 0.0-4.5 [facility] Comment on above: Order Comment: No: D o not add to previous draw Performed By: #### 4 [id number], 78882, 83065, 54032, 22771, 88586 #### [facility] [address] NON-HDL CHOLESTEROL 97 mg/dL Normal [facility] Comment on above: Order Comment: No: D o not add to previous draw Performed By: #### 4 [id number], 16614, 43547, 63756, 39162, 25264 #### [facility] [address] Triglyceride [Mass/Vol] 114 mg/dL Normal 37-148 [facility] Comment on above: Order Comment: No: D o not add to previous draw Result Comment: TRIG LYCERIDE REFERENCE RANGE: 20 YEARS AND OLDER CARDIOVASCULAR RISK LESS THAN 150 mg/dl LOW RISK 150 TO 199 mg/dl BORDERLINE RISK 200 mg/dl AND GREATER HIGH RISK Performed By: #### 4 [id number], 96239, 20738, 74696, 72297, 57454 #### [facility] [address] VLDL CHOL 23 mg/dL Normal 0-40 [facility] Comment on above: Order Comment: No: D o not add to previous draw Performed By: #### 4 [id number], 98556, 83611, 96432, 05556, 05373 #### [facility] [address] SERUM TESTon 09-28 TEST Negative Normal [facility] Comment on above: Order Comment: No: D o not add to previous draw Performed By: #### 4 [id number] #### [facility] [address] TSH3on 09-29-2019 TSH 3RD GENERATION 1.24 uIU/mL Normal 0.34-5.60 [facility] Comment on above: Order Comment: No: D o not add to previous draw Performed By: #### 4 [id number], 81110, 07781, 94425, 65485, 64187 #### [facility] [address] [place] [address], [facility] VITAMIN D 25-HYDROXYon 09-28 VITAMIN D 25-OH 42.5 ng/mL Normal 30.0-80.0 [facility] Comment on above: Result Comment: >80. 0 Toxicity possible Performed By: #### 4 [id number], 62797, 77561, 08037, 71911, 62964 #### [facility] [address] [place] [address], [facility] Urine Drug Screenon 09-28-19 20 Amphetamine Screen, Ur Negative NEGATIVE [facility] [place] Comment on above: (Positive cutoff 500 ng/mL) Barbiturate Screen, Ur Negative NEGATIVE [facility] [place] Comment on above: (Positive cutoff 200 ng/mL) Benzodiazepine Screen, Urine Negative NEGATIVE [facility] [place] Comment on above: (Positive cutoff 150 ng/mL) Buprenorphine Urine NOT REPORTED NEGATIVE [facility] [place] [place] Cannabinoid Scrn, Ur Positive Abnormal NEGATIVE [facility] [place] Comment on above: (Positive cutoff 50 ng/mL) Cocaine Metabolite, Urine Negative NEGATIVE [facility] [place] Comment on above: (Positive cutoff 150 ng/mL) Interpretation and review of laboratory results Abnormal [facility] [place] MDMA, Urine NOT REPORTED NEGATIVE [facility] [place] [place] Methadone Screen, Urine Negative NEGATIVE [facility] [place] Comment on above: (Positive cutoff 200 ng/mL) Methamphetamine, Urine Negative NEGATIVE [facility] [place] Comment on above: (Positive cutoff 500 ng/mL) Opiates, Urine Negative NEGATIVE [facility] [place] Comment on above: (Positive cutoff 100 ng/mL) Oxycodone Screen, Ur Negative NEGATIVE [facility] [place] Comment on above: (Positive cutoff 100 ng/mL) Phencyclidine, Urine Negative NEGATIVE [facility] [place] Comment on above: (Positive cutoff 25 ng/mL) Propoxyphene, Urine Negative NEGATIVE [facility] [place] Comment on above: (Positive cutoff 300 ng/mL) Test Information NOT REPORTED [facility] [place] Tricyclic Antidepressants, Urine Negative NEGATIVE [place] Comment on above: (Positive cutoff 300 ng/mL) Drug screen results are to be used for medical purposes only. All positive results are unconfirmed. Testing for employment or legal uses should be sent to a reference laboratory for confirmation. Acetaminophen Levelon 2019 Acetaminophen [Mass/Vol] <5 Low 10 - 30 ug/mL [place] Interpretation and review of laboratory results Abnormal [place] Basic Metabolic Panelon 09-06 Anion gap [Moles/Vol] 15 mmol/L 9 - 17 mmol/L [place] Bun/Cre Ratio 13 [place] Calcium [Mass/Vol] 10.5 mg/dL High 8.4 - 10. 2 mg/dL [place] Chloride [Moles/Vol] 98 mmol/L 98 - 10 7 mmol/L [place] CO2 [Moles/Vol] 23 mmol/L 20 - 31 mmol/L [place] Creatinine [Mass/Vol] 0.61 mg/dL 0.5 - 0.9 mg/dL [place] GFR NOT REPORTED >60 mL/min [place] GFR Non- Pediatric GFR requires additional information. Refer to NKDEP website for calculator. >60 mL/min [place] GFR/1.73 sq M predicted among non-blacks MDRD (S/P/Bld) [Vol rate/Area] NOT REPORTED [place] GFR/1.73 sq M predicted among non-blacks MDRD (S/P/Bld) [Vol rate/Area] [place] Comment on above: Average GFR for <20 years old not available. Chronic Kidney Disease: <60 mL/min/1.73sq m Kidney failure: <15 mL/min/1.73sq m eGFR calculated using average adult body mass. Additional eGFR calculator available at: http://www.[employer]/multiple_crcl_2012.htm Glucose [Mass/Vol] 106 mg/dL High 60 - 100 mg/dL [place] Potassium [Moles/Vol] 3.9 mmol/L 3.6 - 4.9 mmol/L [place] Sodium [Moles/Vol] 136 mmol/L 135 - 144 mmol/L [place] Urea nitrogen [Mass/Vol] 8 mg/dL 5 - 18 mg/dL [place] CBC Auto Differentialon 09-06 Basophils (Bld) [#/Vol] 0.00 10*3/uL [place] Basophils/100 WBC (Bld) 0 % 0 - 2 % [place] Differential Type YES [place] Eosinophils (Bld) [#/Vol] 0.10 10*3/uL [place] Eosinophils/100 WBC (Bld) 1 % 0 - 5 % [place] Erythrocyte distribution width (RBC) [Ratio] 14.8 % 12.1 - 15.2 % [place] Hematocrit (Bld) [Volume fraction] 40.2 % 36 - 46 % [place] Hemoglobin (Bld) [Mass/Vol] 13.8 g/dL 12 - 16 g/dL [place] Lymphocytes (Bld) [#/Vol] 1.90 10*3/uL [place] Lymphocytes/100 WBC (Bld) 21 % 14 - 41 % [place] MCH (RBC) [Entitic mass] 28.4 pg 25 - 35 pg [place] MCHC (RBC) [Mass/Vol] 34.2 g/dL 31 - 37 g/dL [place] MCV (RBC) [Entitic vol] 83.1 fL 78 - 102 fL [place] Monocytes (Bld) [#/Vol] 0.70 10*3/uL [place] Monocytes/100 WBC (Bld) 7 % 4 - 8 % [place] Platelet mean volume (Bld) [Entitic vol] NOT REPORTED 6 - 12 fL [place] Platelets (Bld) [#/Vol] 238 10*3/uL [place] Platelets (Bld) [#/Vol] NOT REPORTED [facility] RBC (Bld) [#/Vol] 4.84 10*6/uL 4 - 5.2 m/uL [facility] RBC morphology finding Nom (Bld) NOT REPORTED [facility] Segmented neutrophils/100 WBC (Bld) 71 % 45 - 76 % [facility] Segs Absolute 6.50 [facility] [place] WBC (Bld) [#/Vol] 9.2 10*3/uL [facility] WBC (Bld) [#/Vol] NOT REPORTED per 100 WBC Evelio [facility] WBC Morphology NOT REPORTED [facility] Ethanolon 09-27-2019 Ethanol [Mass/Vol] mg/dL <10 mg/dL [facility] Ethanol percent <0.010 % [facility] [place] HCG Qualitative, Serumon hCG Qual Negative NEGATIVE [facility] [place] Comment on above: Specimens with hCG l evels near the threshold of the test (25 mIU/mL) may give a negative or indeterminate result. In such cases, another test should be performed with a new specimen in 48-72 hours. If early is suspected clinically in this setting, correlation with quantitative serum b-hCG level is suggested. [employer] has confirmed the use of plasma for this test. This has not been cleared or approved by the U.S. Food and Drug Administration. The FDA has determined that such clearance is not necessary. Otheron 09-27-2019 Interpretation and review of laboratory results Abnormal [facility] Immature granulocytes (Bld) [#/Vol] NOT REPORTED 0 % [facility] Salicylateon 09-27-2019 Salicylate Lvl <1 Low 3 - 10 mg/dL [facility] TSH without Reflexon 020 TSH Qn 0.49 m[IU]/L [facility] X[facility] HAND RIGHT (MIN 3 VIEWS)o n 09-27-2019 EXAM: XR HAND RIGHT (MIN 3 VIEWS) HISTORY: Reason for exam:->pain to lateral MCs, punched wall COMPARISON: Right hand, 07/20/2014. TECHNIQUE: AP, oblique and lateral views of the right hand. FINDINGS: No acute or intrinsic osseous, articular or soft tissue abnormality is seen. [place] No acute findings. [place], [place] Incoming Radiant Results From [employer] - 09/27/2019 11:39 PM EDT EXAM: XR HAND RIGHT (MIN 3 VIEWS) HISTORY: Reason for exam:->pain to lateral MCs, punched wall COMPARISON: Right hand, 07/20/2014. TECHNIQUE: AP, oblique and lateral views of the right hand. FINDINGS: No acute or intrinsic osseous, articular or soft tissue abnormality is seen. IMPRESSION: No acute findings. [place] CBC Auto Differentialon 11-0 Basophils (Bld) [#/Vol] 0.00 10*3/uL [place] Basophils/100 WBC (Bld) 1 % 0 - 2 % [place] Differential Type YES [place] Eosinophils (Bld) [#/Vol] 0.00 10*3/uL [place] Eosinophils/100 WBC (Bld) 1 % 0 - 5 % [place] Erythrocyte distribution width (RBC) [Ratio] 14.3 % 12.1 - 15.2 % [place] Hematocrit (Bld) [Volume fraction] 40.7 % 36 - 46 % [place] Hemoglobin (Bld) [Mass/Vol] 13.4 g/dL 12 - 16 g/dL [place] Interpretation and review of laboratory results Abnormal [place] Lymphocytes (Bld) [#/Vol] 1.20 10*3/uL [place] Lymphocytes/100 WBC (Bld) 33 % 14 - 41 % [place] MCH (RBC) [Entitic mass] 27.3 pg 25 - 35 pg [place] MCHC (RBC) [Mass/Vol] 33.0 g/dL 31 - 37 g/dL [place] MCV (RBC) [Entitic vol] 82.8 fL 78 - 102 fL [place] Monocytes (Bld) [#/Vol] 0.40 10*3/uL [place] Monocytes/100 WBC (Bld) 12 % High 4 - 8 % [place] Platelet mean volume (Bld) [Entitic vol] NOT REPORTED 6 - 12 fL [place] Platelets (Bld) [#/Vol] 235 10*3/uL [place] Platelets (Bld) [#/Vol] NOT REPORTED [place] RBC (Bld) [#/Vol] 4.92 10*6/uL 4 - 5.2 m/uL [place] RBC morphology finding Nom (Bld) NOT REPORTED [place] Segmented neutrophils/100 WBC (Bld) 53 % 45 - 76 % [place] Segs Absolute 2.10 Low [place] WBC (Bld) [#/Vol] 3.8 10*3/uL Low [place] WBC (Bld) [#/Vol] NOT REPORTED per 100 WBC [place] WBC Morphology NOT REPORTED [place] Comprehensive Metabolic Pane bonita 01-12-2019 Albumin [Mass/Vol] 4.8 g/dL High 3.2 - 4.5 g/dL [place] Albumin/Globulin [Mass ratio] NOT REPORTED [place] ALP [Catalytic activity/Vol] 88 U/L 47 - 119 U/L [place] ALT [Catalytic activity/Vol] 12 U/L 5 - 33 U/L [place] Anion gap [Moles/Vol] 17 mmol/L 9 - 17 mmol/L [place] AST [Catalytic activity/Vol] 24 U/L <32 [place] Bilirubin Ql (U) 0.46 mg/dL 0.3 - 1.2 mg/dL [place] Bun/Cre Ratio 14 [place] Calcium [Mass/Vol] 10.4 mg/dL High 8.4 - 10. 2 mg/dL [place] Chloride [Moles/Vol] 101 mmol/L 98 - 10 7 mmol/L [place] CO2 [Moles/Vol] 22 mmol/L 20 - 31 mmol/L [place] Creatinine [Mass/Vol] 0.65 mg/dL 0.5 - 0.9 mg/dL [place] GFR NOT REPORTED >60 mL/min [place] GFR Non- Pediatric GFR requires additional information. Refer to NKDEP website for calculator. >60 mL/min [place] GFR/1.73 sq M predicted among non-blacks MDRD (S/P/Bld) [Vol rate/Area] NOT REPORTED [place] GFR/1.73 sq M predicted among non-blacks MDRD (S/P/Bld) [Vol rate/Area] [place] Comment on above: Average GFR for <20 years old not available. Chronic Kidney Disease: <60 mL/min/1.73sq m Kidney failure: <15 mL/min/1.73sq m eGFR calculated using average adult body mass. Additional eGFR calculator available at: http://www.[employer]/multiple_crcl_2012.htm Glucose [Mass/Vol] 90 mg/dL 60 - 100 mg/dL [place] Interpretation and review of laboratory results Abnormal [place] Potassium [Moles/Vol] 3.9 mmol/L 3.6 - 4.9 mmol/L [place] Protein [Mass/Vol] 8.7 g/dL High 6 - 8 g/dL [place] Sodium [Moles/Vol] 140 mmol/L 135 - 144 mmol/L [place] Urea nitrogen [Mass/Vol] 9 mg/dL 5 - 18 mg/dL [place] HCG Qualitative, Serumon hCG Qual Negative NEGATIVE [place] Comment on above: Specimens with hCG l evels near the threshold of the test (25 mIU/mL) may give a negative or indeterminate result. In such cases, another test should be performed with a new specimen in 48-72 hours. If early is suspected clinically in this setting, correlation with quantitative serum b-hCG level is suggested. [employer] has confirmed the use of plasma for this test. This has not been cleared or approved by the U.S. Food and Drug Administration. The FDA has determined that such clearance is not necessary. Otheron 01-12-2019 Immature granulocytes (Bld) [#/Vol] NOT REPORTED [facility] [place] HCG QUALITATIVE, URINEon HCG ( test) Ql (U) Negative [facility] Otheron 12-18-2018 Interpretation and review of laboratory results Abnormal [facility] URINALYSIS, MACROon 12-19-19 19 Bilirubin Ql (U) Negative NEGATIVE [facility] Clarity (U) CLEAR CLEAR [facility] Color (U) YELLOW YELLOW [facility] Glucose Test strip (U) [Mass/Vol] Negative NEGATIVE mg/dl [facility] Hemoglobin Ql (U) Negative NEGATIVE [facility] Ketones (U) [Mass/Vol] Negative NEGATIVE mg/dl [facility] Leukocyte esterase Test strip Ql (U) Negative NEGATIVE [facility] Nitrite Ql (U) Negative NEGATIVE [facility] pH (U) 7.0 [pH] [facility] Protein Ql (U) TRACE Abnormal NEGATIVE mg/dl [facility] Specific gravity (U) [Rel density] 1.025 [facility] Urobilinogen (U) [Mass/Vol] 0.2 [facility] URINE HCG QUALon 12-18-2018 Beta HCG ( test) Ql (U) Negative Normal [facility] URINE MACROSCOPICon 12-19-19 19 Bilirubin Ql (U) Negative Normal NEGATIVE [facility] Clarity (U) CLEAR Normal CLEAR [facility] Color (U) YELLOW Normal YELLOW [facility] Glucose Ql (U) Negative Normal NEGATIVE [facility] pH (U) 7.0 [pH] Normal 5.0-7.0 [facility] Protein (U) [Mass/Vol] TRACE Abnormal NEGATIVE [facility] URINE HEMOGLOBIN Negative Normal NEGATIVE [facility] URINE KETONE Negative Normal NEGATIVE [facility] URINE LEUKOTEST Negative Normal NEGATIVE [facility] URINE NITRATES Negative Normal NEGATIVE [facility] URINE SPEC GRAVITY 1.025 Normal 1.010-1.025 [facility] Urobilinogen Qn (U) 0.2 {Manuel'U}/dL Normal 0.2-1.0 [facility] URINE MICROSCOPICon 12-19-19 19 Bacteria LM.HPF (Urine sed) [#/Area] TRACE Abnormal NEGATIVE [facility] Casts LM.LPF (Urine sed) [#/Area] NONE Normal NONE [facility] CRYSTAL NONE Normal NONE [facility] Epithelial cells LM.HPF (Urine sed) [#/Area] 10 TO 20 Normal [facility] Mucus Ql (Urine sed) Negative Normal NEGATIVE [facility] RBC (U) [#/Vol] Negative Normal NEGATIVE [facility] URINE COMMENT CULTURE CRITERIA NOT MET, NO CULTURE PERFORMED. Normal [facility] WBC (U) [#/Vol] 1 TO 5 Normal NEGATIVE [facility] Bacteria LM.HPF (Urine sed) [#/Area] TRACE Abnormal NEGATIVE [facility] Casts LM.LPF (Urine sed) [#/Area] NONE NONE /LPF [facility] Crystals LM Nom (Urine sed) NONE NONE [facility] Epithelial cells LM Ql (Urine sed) 10 TO 20 /HPF [facility] Mucus Ql (Urine sed) Negative NEGATIVE [facility] RBC LM.HPF (Urine sed) [#/Area] Negative NEGATIVE /HPF [facility] Urine sediment comments LM Vinnie (Urine sed) CULTURE CRITERIA NOT MET, NO CULTURE PERFORMED. [facility] WBC LM.HPF (Urine sed) [#/Area] 1 TO 5 NEGATIVE /HPF [facility] Strep Screen Group A Throato n 12-16-2018 S. pyogenes Ag IA Ql (Unsp spec) Rapid Strep A negative. A negative Rapid Group A Strep Screen result does not rule out the possibility of Group A Streptococci in the specimen. The [place] [employer] recommends confirmation testing. Therefore, a Group A Strep DNA test will be performed. [place] Special Requests NOT REPORTED [place] Specimen Description .THROAT [place] XR CHEST STANDARD (2 VW)on Negative chest. [place], [place] EXAM: XR CHEST (2 VW) HISTORY: Reason for exam:->cough COMPARISON: None. TECHNIQUE: 2 views chest FINDINGS: Heart size normal. Lungs clear. Bony thorax and upper abdomen normal. [place], [place] Incoming Radiant Results From [employer] - 12/16/2018 5:28 PM EDT EXAM: XR CHEST (2 VW) HISTORY: Reason for exam:->cough COMPARISON: None. TECHNIQUE: 2 views chest FINDINGS: Heart size normal. Lungs clear. Bony thorax and upper abdomen normal. IMPRESSION: Negative chest. [facility], [place] Vital Signs Date Time Vital Sign Value Performing Clinician Leighi [email or web address] 02-21-2024 10:13-0500 Body height 160 cm Doyle Amaro MD Work Phone: [facility] 02-21-2024 10:13-0500 Body mass index (BMI) [Ratio] 28.52 kg/m2 Doyle Amaro MD Work Phone: [facility] 02-21-2024 10:13-0500 Body weight 73.03 kg Doyle Amaro MD Work Phone: [facility] 02-21-2024 10:13-0500 Diastolic blood pressure 70 mm[Hg] Doyle Amaro MD Work Phone: [facility] 02-21-2024 10:13-0500 Systolic blood pressure 105 mm[Hg] Doyle Amaro MD Work Phone: [facility] 02-07-2024 11:12-0500 Body mass index (BMI) [Ratio] 28.63 kg/m2 Malka Allison APRN-[employer] Work Phone: [facility] 02-07-2024 11:12-0500 Body weight 73.3 kg Malka Allison APRN-[employer] Work Phone: [facility] 02-07-2024 11:12-0500 Diastolic blood pressure 60 mm[Hg] Malka Allison APRN-[employer] Work Phone: [facility] 02-07-2024 11:12-0500 Systolic blood pressure 108 mm[Hg] Malka Allison APRN-[employer] Work Phone: [facility] 01-10-2024 09:44-0500 Body mass index (BMI) [Ratio] 27.56 kg/m2 Nahed Stewart MD Work Phone: [facility] 01-10-2024 09:44-0500 Body weight 70.58 kg Nahed Stewart MD Work Phone: [facility] 01-10-2024 09:44-0500 Diastolic blood pressure 60 mm[Hg] Nahed Stewart MD Work Phone: 6(193)077-954328 [place] [address] 01-10-2024 09:44-0500 Systolic blood pressure 100 mm[Hg] Nahed Stewart MD Work Phone: 4(891)237-633028 [place] [address] 12-13-2023 09:17-0400 Body mass index (BMI) [Ratio] 26.04 kg/m2 Nahed Stewart MD Work Phone: 3(543)512-524628 [place] [address] 12-13-2023 09:17-0400 Body weight 66.68 kg Nahed Stewart MD Work Phone: 5(975)377-236228 [place] [address] 12-13-2023 09:17-0400 Diastolic blood pressure 60 mm[Hg] Nahed Stewart MD Work Phone: 8(256)611-840928 [place] [address] 12-13-2023 09:17-0400 Systolic blood pressure 100 mm[Hg] Nahed Stewart MD Work Phone: 8(887)364-396428 [place] [address] 11-11-2023 13:33-0400 Body mass index (BMI) [Ratio] 24.98 kg/m2 Nahed Stewart MD Work Phone: 6(624)478-654528 [place] [address] 11-11-2023 13:33-0400 Body weight 63.96 kg Nahed Stewart MD Work Phone: 6(977)757-012728 [place] [address] 11-11-2023 13:33-0400 Diastolic blood pressure 56 mm[Hg] Nahed Stewart MD Work Phone: 7(217)047-425428 [place] [address] 11-11-2023 13:33-0400 Systolic blood pressure 112 mm[Hg] Nahed Stewart MD Work Phone: 0(650)500-925128 [place] [address] 10-14-2023 13:27-0400 Body height 160 cm Doyle Amaro MD Work Phone: 1(159)023-327128 [place] [address] 10-14-2023 13:27-0400 Body mass index (BMI) [Ratio] 24.62 kg/m2 Doyle Amaro MD Work Phone: [facility] 10-14-2023 13:27-0400 Body weight 63.05 kg Doyle Amaro MD Work Phone: [facility] 10-14-2023 13:27-0400 Diastolic blood pressure 62 mm[Hg] Doyle Amaro MD Work Phone: [facility] 10-14-2023 13:27-0400 Systolic blood pressure 120 mm[Hg] Doyle Amaro MD Work Phone: [facility] 09-26-2023 19:52-0400 Diastolic blood pressure 86 mm[Hg] Justin Hewitt [facility] 09-26-2023 19:52-0400 Heart rate 96 /min Justin Hewitt [facility] 09-26-2023 19:52-0400 Mean blood pressure 97 mm[Hg] Justin Hewitt [facility] 09-26-2023 19:52-0400 Respiratory rate 23 /min Justin Hewitt [facility] 09-26-2023 19:52-0400 SaO2% (BldA) [Mass fraction] 99 % Justin Hewitt [facility] 09-26-2023 19:52-0400 Systolic blood pressure 120 mm[Hg] Justin Kash [facility] 09-26-2023 18:46-0400 Diastolic blood pressure 81 mm[Hg] Justin Kash [facility] 09-26-2023 18:46-0400 Heart rate 89 /min Justin Kash [facility] 09-26-2023 18:46-0400 Mean blood pressure 96 mm[Hg] Justin Kash [facility] 09-26-2023 18:46-0400 Respiratory rate 18 /min Justin Kash [facility] 09-26-2023 18:46-0400 SaO2% (BldA) [Mass fraction] 98 % Justin Kash [facility] 09-26-2023 18:46-0400 Systolic blood pressure 126 mm[Hg] Justin Kash [facility] 09-26-2023 18:00-0400 Heart rate 97 /min Justin Kash [facility] 09-26-2023 18:00-0400 Mean blood pressure 94 mm[Hg] Justin Kash [facility] 09-26-2023 18:00-0400 SaO2% (BldA) [Mass fraction] 100 % Justin Kash [facility] 09-26-2023 18:00-0400 Systolic blood pressure 121 mm[Hg] Justin Kash [facility] 09-26-2023 16:57-0400 Body temperature 98.96 [degF] Justin Kash [facility] 09-26-2023 16:57-0400 Heart rate 94 /min Justin Kash [facility] 09-26-2023 16:57-0400 Respiratory rate 18 /min Justin Kash [facility] 09-26-2023 16:42-0400 Body temperature 98.6 [degF] Justin Kash [facility] 09-26-2023 16:42-0400 Heart rate 106 /min Justin Kash [facility] 09-26-2023 16:42-0400 Respiratory rate 18 /min Justin Kash [facility] 09-24-2023 13:28-0400 Body height 160 cm Avg Gurjit [place] [id number] [facility] 09-24-2023 13:28-0400 Body mass index (BMI) [Ratio] 23.91 kg/m2 Avg [place] [id number] [facility] 09-24-2023 13:28-0400 Body weight 61.24 kg Avg [place] [id number] [facility] 09-24-2023 13:28-0400 Diastolic blood pressure 68 mm[Hg] Avg [address] 09-24-2023 13:28-0400 Systolic blood pressure 112 mm[Hg] Avg [address] 09-16-2023 08:37-0400 Body temperature 98.24 [degF] [facility] 09-16-2023 08:37-0400 Diastolic blood pressure 78 mm[Hg] [facility] 09-16-2023 08:37-0400 Heart rate 76 /min [facility] 09-16-2023 08:37-0400 Respiratory rate 18 /min [facility] 09-16-2023 08:37-0400 SaO2% (BldA) [Mass fraction] 100 % [facility] 09-16-2023 08:37-0400 Systolic blood pressure 126 mm[Hg] [facility] 09-13-2023 10:56-0400 Blood Pressure Location Pari Underwood [facility] 09-13-2023 10:56-0400 Body temperature 97.88 [degF] Pari Underwood [facility] 09-13-2023 10:56-0400 Diastolic blood pressure 68 mm[Hg] Pari Underwood [facility] 09-13-2023 10:56-0400 Heart rate 74 /min Pari Underwood [facility] 09-13-2023 10:56-0400 Respiratory rate 18 /min Pari Tateer [facility] 09-13-2023 10:56-0400 SaO2% (BldA) [Mass fraction] 98 % Pari Underwood [facility] 09-13-2023 10:56-0400 Systolic blood pressure 110 mm[Hg] Pari Underwood [facility] [place] 08-13-2023 14:20-0400 Blood Pressure Location Pari Underwood [facility] 08-13-2023 14:20-0400 Body temperature 97.88 [degF] Pari Underwood [facility] 08-13-2023 14:20-0400 Diastolic blood pressure 80 mm[Hg] Pari Underwood [facility] 08-13-2023 14:20-0400 Heart rate 88 /min Pari Underwood [facility] [place] 08-13-2023 14:20-0400 Respiratory rate 16 /min Pari Underwood [facility] 08-13-2023 14:20-0400 SaO2% (BldA) [Mass fraction] 99 % Pari Underwood [facility] 08-13-2023 14:20-0400 Systolic blood pressure 122 mm[Hg] Pari Underwood [facility] 08-04-2023 14:57-0400 Body mass index (BMI) [Ratio] 22.96 kg/m2 Nahed Stewart MD Work Phone: [facility] 08-04-2023 14:57-0400 Body weight 58.79 kg Nahed Stewart MD Work Phone: [facility] [employer] [facility] 08-04-2023 14:57-0400 Diastolic blood pressure 62 mm[Hg] Nahed Stewart MD Work Phone: [facility] 08-04-2023 14:57-0400 Systolic blood pressure 120 mm[Hg] Nahed Stewart MD Work Phone: [employer] [facility] 04-16-2023 14:16-0500 Body mass index (BMI) [Ratio] 20.87 kg/m2 Nahed Stewart MD Work Phone: [employer] [facility] 04-16-2023 14:16-0500 Body weight 53.43 kg Nahed Stewart MD Work Phone: [employer] [facility] 04-16-2023 14:16-0500 Diastolic blood pressure 76 mm[Hg] Nahed Stewart MD Work Phone: [employer] [facility] 04-16-2023 14:16-0500 Systolic blood pressure 118 mm[Hg] Nahed Stewart MD Work Phone: [employer] [facility] 10-23-2022 09:25-0400 Body height 160 cm Nahed Stewart MD Work Phone: [employer] [facility] 10-23-2022 09:25-0400 Body mass index (BMI) [Ratio] 21.33 kg/m2 Nahed Stewart MD Work Phone: [employer] [facility] 10-23-2022 09:25-0400 Body weight 54.61 kg Nahed Stewart MD Work Phone: [employer] [facility] 10-23-2022 09:25-0400 Diastolic blood pressure 68 mm[Hg] Nahed Stewart MD Work Phone: [employer] [facility] 10-23-2022 09:25-0400 Systolic blood pressure 100 mm[Hg] Nahed Stewart MD Work Phone: [facility] 09-01-2022 13:16-0400 Body mass index (BMI) [Ratio] 21.36 kg/m2 Nahed Stewart MD Work Phone: [facility] 09-01-2022 13:16-0400 Body weight 54.7 kg Nahed Stewart MD Work Phone: [facility] 09-01-2022 13:16-0400 Diastolic blood pressure 66 mm[Hg] Nahed Stewart MD Work Phone: [facility] 09-01-2022 13:16-0400 Systolic blood pressure 120 mm[Hg] Nahed Stewart MD Work Phone: [facility] 06-08-2022 13:20-0400 Body temperature 98.71 [degF] [facility] 06-08-2022 13:20-0400 Diastolic blood pressure 70 mm[Hg] [facility] 06-08-2022 13:20-0400 Heart rate 82 /min [facility] 06-08-2022 13:20-0400 Respiratory rate 18 /min [facility] 06-08-2022 13:20-0400 SaO2% (BldA) [Mass fraction] 97 % [facility] 06-08-2022 13:20-0400 Systolic blood pressure 117 mm[Hg] [facility] 04-22-2022 09:40-0500 Body mass index (BMI) [Ratio] 21.01 kg/m2 Nahed Stewart MD Work Phone: [facility] 04-22-2022 09:40-0500 Body weight 53.8 kg Nahed Stewart MD Work Phone: [facility] 04-22-2022 09:40-0500 Diastolic blood pressure 62 mm[Hg] Nahed Stewart MD Work Phone: [facility] 04-22-2022 09:40-0500 Systolic blood pressure 110 mm[Hg] Nahed Stewart MD Work Phone: [facility] 03-20-2022 14:35-0500 Body mass index (BMI) [Ratio] 22.21 kg/m2 Nahed Stewart MD Work Phone: [employer] [facility] 03-20-2022 14:35-0500 Body weight 56.88 kg Nahed Stewart MD Work Phone: [employer] [facility] 03-20-2022 14:35-0500 Diastolic blood pressure 70 mm[Hg] Nahed Stewart MD Work Phone: [facility] [employer] [facility] 03-20-2022 14:35-0500 Systolic blood pressure 118 mm[Hg] Nahed Stewart MD Work Phone: [facility] [employer] [facility] 10-24-2021 14:45-0400 Body height 160 cm Nahed Stewart MD Work Phone: [facility] [employer] [facility] 10-24-2021 14:45-0400 Body mass index (BMI) [Ratio] 23.03 kg/m2 Nahed Stewart MD Work Phone: [facility] [employer] [facility] 10-24-2021 14:45-0400 Body weight 58.97 kg Nahed Stewart MD Work Phone: [employer] [facility] 10-24-2021 14:45-0400 Diastolic blood pressure 62 mm[Hg] Nahed Stewart MD Work Phone: [facility] [employer] [facility] 10-24-2021 14:45-0400 Systolic blood pressure 120 mm[Hg] Nahed Stewart MD Work Phone: [facility] [employer] [facility] 08-05-2021 09:20-0400 Body mass index (BMI) [Ratio] 28.09 kg/m2 Nahed Stewart MD Work Phone: [employer] [facility] 08-05-2021 09:20-0400 Body weight 71.94 kg Nahed Stewart MD Work Phone: [employer] [facility] 08-05-2021 09:20-0400 Diastolic blood pressure 56 mm[Hg] Nahed Stewart MD Work Phone: [facility] [employer] [facility] 08-05-2021 09:20-0400 Systolic blood pressure 98 mm[Hg] Nahed Stewart MD Work Phone: [phone] [place] [address] 07-28-2021 09:03-0400 Body height 160 cm Doyle Amaro MD Work Phone: [facility] 07-28-2021 09:03-0400 Body mass index (BMI) [Ratio] 27.46 kg/m2 Doyle Amaro MD Work Phone: [facility] 07-28-2021 09:03-0400 Body weight 70.31 kg Doyle Amaro MD Work Phone: [facility] 07-28-2021 09:03-0400 Diastolic blood pressure 64 mm[Hg] Doyle Amaro MD Work Phone: [facility] 07-28-2021 09:03-0400 Systolic blood pressure 140 mm[Hg] Doyle Amaro MD Work Phone: [facility] 07-14-2021 09:00-0400 Body height 160 cm Malka Allison SOLDER SPRAYER-[employer]CIAL [employer] RETROFIT ARCHITECT Work Phone: [facility] 07-14-2021 09:00-0400 Body mass index (BMI) [Ratio] 26.75 kg/m2 Malka Allison SOLDER SPRAYER-COMMERCIAL [employer] RETROFIT ARCHITECT Work Phone: [facility] 07-14-2021 09:00-0400 Body weight 68.49 kg Malka Allison SOLDER SPRAYER-COMMERCIAL [employer] RETROFIT ARCHITECT Work Phone: [facility] 07-14-2021 09:00-0400 Diastolic blood pressure 62 mm[Hg] Malka Allison SOLDER SPRAYER-COMMERCIAL GREEN RETROFIT ARCHITECT Work Phone: [facility] 07-14-2021 09:00-0400 Systolic blood pressure 106 mm[Hg] Malka Allison SOLDER SPRAYER-COMMERCIAL [employer] RETROFIT ARCHITECT Work Phone: [facility] 06-30-2021 09:33-0400 Body height 160 cm Doyle Amaro MD Work Phone: [facility] 06-30-2021 09:33-0400 Body mass index (BMI) [Ratio] 26.04 kg/m2 Doyle Amaro MD Work Phone: [facility] 06-30-2021 09:33-0400 Body weight 66.68 kg Doyle Amaro MD Work Phone: [facility] 06-30-2021 09:33-0400 Diastolic blood pressure 64 mm[Hg] Doyle Amaro MD Work Phone: [facility] 06-30-2021 09:33-0400 Systolic blood pressure 102 mm[Hg] Doyle Amaro MD Work Phone: [facility] 06-16-2021 09:08-0400 Body height 160 cm Malka Betancuram SOLDER SPRAYER-COMMERCIAL [employer] RETROFIT ARCHITECT Work Phone: [facility] 06-16-2021 09:08-0400 Body mass index (BMI) [Percentile] Per age and sex 84.17 % Malka Allison SOLDER SPRAYER-COMM[employer]CIAL [employer] RETROFIT ARCHITECT Work Phone: [facility] 06-16-2021 09:08-0400 Body mass index (BMI) [Ratio] 25.86 kg/m2 Malka Allison SOLDER SPRAYER-COMMERCIAL [employer] RETROFIT ARCHITECT Work Phone: [facility] 06-16-2021 09:08-0400 Body weight 66.22 kg Malka Allison SOLDER SPRAYER-COMMERCIAL GREEN RETROFIT ARCHITECT Work Phone: [facility] 06-16-2021 09:08-0400 Diastolic blood pressure 64 mm[Hg] Malka Allison SOLDER SPRAYER-COMMERCIAL GREEN RETROFIT ARCHITECT Work Phone: [facility] 06-16-2021 09:08-0400 Systolic blood pressure 106 mm[Hg] Malka Allison SOLDER SPRAYER-COMMERCIAL GREEN RETROFIT ARCHITECT Work Phone: [facility] 06-02-2021 09:07-0400 Body mass index (BMI) [Percentile] Per age and sex 79.15 % Nahed Stewart MD Work Phone: [facility] 06-02-2021 09:07-0400 Body mass index (BMI) [Ratio] 24.8 kg/m2 Nahed Stewart MD Work Phone: [facility] 06-02-2021 09:07-0400 Body weight 63.5 kg Nahed Stewart MD Work Phone: [facility] [employer] [facility] 06-02-2021 09:07-0400 Diastolic blood pressure 56 mm[Hg] Nahed Stewart MD Work Phone: [facility] 06-02-2021 09:07-0400 Systolic blood pressure 100 mm[Hg] Nahed Stewart MD Work Phone: [facility] 05-13-2021 10:08-0500 Body height 160 cm Malka Allison SOLDER SPRAYER-[employer] RETROFIT ARCHITECT Work Phone: [facility] 05-13-2021 10:08-0500 Body mass index (BMI) [Percentile] Per age and sex 72.35 % Malka Allison SOLDER SPRAYER-COMM[employer]CIAL [employer] RETROFIT ARCHITECT Work Phone: [facility] 05-13-2021 10:08-0500 Body mass index (BMI) [Ratio] 23.74 kg/m2 Malka Allison SOLDER SPRAYER-[employer] RETROFIT ARCHITECT Work Phone: [facility] 05-13-2021 10:08-0500 Body weight 60.78 kg Malka Allison SOLDER SPRAYER-[employer] RETROFIT ARCHITECT Work Phone: [facility] [employer] [facility] 05-13-2021 10:08-0500 Diastolic blood pressure 62 mm[Hg] Malka Allison SOLDER SPRAYER-[employer] RETROFIT ARCHITECT Work Phone: [facility] 05-13-2021 10:08-0500 Systolic blood pressure 104 mm[Hg] Malka Allison SOLDER SPRAYER-[employer]ERCIAL [employer] RETROFIT ARCHITECT Work Phone: [facility] 04-22-2021 14:24-0500 Body mass index (BMI) [Percentile] Per age and sex 72.49 % Nahed Stewart MD [facility] 04-22-2021 14:24-0500 Body mass index (BMI) [Ratio] 23.74 kg/m2 Nahed Stewart MD Work Phone: [facility] 04-22-2021 14:24-0500 Body weight 60.78 kg Nahed Stewart MD Work Phone: [facility] 04-22-2021 14:24-0500 Diastolic blood pressure 70 mm[Hg] Nahed Stewart MD Work Phone: [facility] [employer] [facility] 04-22-2021 14:24-0500 Systolic blood pressure 112 mm[Hg] Nahed Stewart MD Work Phone: [facility] 03-13-2021 10:20-0500 Body height 160 cm Doyle Amaro MD Work Phone: [facility] 03-13-2021 10:20-0500 Body mass index (BMI) [Percentile] Per age and sex 59.91 % Doyle Amaro MD Work Phone: [facility] 03-13-2021 10:20-0500 Body mass index (BMI) [Ratio] 22.32 kg/m2 Doyle Amaro MD Work Phone: [facility] [employer] [facility] 03-13-2021 10:20-0500 Body weight 57.15 kg Doyle Amaro MD Work Phone: [facility] [employer] [facility] 03-13-2021 10:20-0500 Diastolic blood pressure 76 mm[Hg] Doyle Amaro MD Work Phone: [facility] 03-13-2021 10:20-0500 Systolic blood pressure 122 mm[Hg] Doyle Amaro MD Work Phone: [facility] [employer] [facility] 02-06-2021 09:17-0500 Body height 160 cm Doyle Amaro MD [facility] 02-06-2021 09:17-0500 Body mass index (BMI) [Percentile] Per age and sex 56.34 % Doyle Amaro MD Work Phone: [facility] 02-06-2021 09:17-0500 Body mass index (BMI) [Ratio] 21.97 kg/m2 Doyle Amaro MD Work Phone: [facility] [employer] [facility] 02-06-2021 09:17-0500 Body weight 56.25 kg Doyle Amaro MD Work Phone: [facility] 02-06-2021 09:17-0500 Diastolic blood pressure 70 mm[Hg] Doyle Amaro MD Work Phone: [facility] 02-06-2021 09:17-0500 Systolic blood pressure 112 mm[Hg] Doyle Amaro MD Work Phone: [facility] 01-14-2021 09:45-0500 Body height 160 cm Avg Gurjit Gal [id number] [facility] 01-14-2021 09:45-0500 Body mass index (BMI) [Percentile] Per age and sex 60.4 % Avg Gurjit Gal [id number] [facility] 01-14-2021 09:45-0500 Body mass index (BMI) [Ratio] 22.32 kg/m2 Avg Gurjit Gal [id number] [facility] 01-14-2021 09:45-0500 Body weight 57.15 kg Avg Gurjit Gal [id number] [facility] 01-14-2021 09:45-0500 Diastolic blood pressure 72 mm[Hg] Avg Gurjit Gal [id number] [facility] 01-14-2021 09:45-0500 Systolic blood pressure 112 mm[Hg] Avg Gurjit Gal [id number] [facility] 09-28-2019 08:35-0400 BP Diastolic 68 mm[Hg] [facility], [place] 09-28-2019 08:35-0400 BP Systolic 140 mm[Hg] [facility] 09-28-2019 08:35-0400 Pulse (Heart Rate) 92 /min [facility], [place] 09-28-2019 08:35-0400 Pulse Oximetry 99 % [facility] 09-28-2019 08:35-0400 Respiratory Rate 16 /min [facility] 09-28-2019 06:54-0400 Body Temperature 98.29 [degF] [facility] 09-27-2019 22:49-0400 BMI (Body Mass Index) 21.43 kg/m2 [facility], [place] 09-27-2019 22:49-0400 Body weight 54.88 kg Miguel Angel Singh [facility], [place] 09-27-2019 22:49-0400 Height 160 cm [facility], [place] 05-19-2019 19:55-0400 BP Diastolic 59 mm[Hg] [facility], [place] 05-19-2019 19:55-0400 BP Systolic 114 mm[Hg] [facility], [place] 05-19-2019 19:55-0400 Pulse (Heart Rate) 66 /min [facility], [place] 05-19-2019 19:55-0400 Pulse Oximetry 100 % [facility], [place] 05-19-2019 19:55-0400 Respiratory Rate 18 /min [facility], [place] 05-19-2019 18:36-0400 BMI (Body Mass Index) 21.97 kg/m2 [facility] [place] 05-19-2019 18:36-0400 Body Temperature 98.29 [degF] [facility], [place] 05-19-2019 18:36-0400 Body weight 56.25 kg [facility], [place] 05-19-2019 18:36-0400 Height 160 cm [facility], [place] 03-08-2019 18:31-0500 Body temperature 98.1 [degF] Peter Petty MD Work Phone: [employer] Work Phone: 03-08-2019 18:31-0500 Body weight 57.15 kg Peter Petty MD Work Phone: [employer] Work Phone: 03-08-2019 18:31-0500 Diastolic blood pressure 90 mm[Hg] Peter Petty MD Work Phone: [employer] Work Phone: 03-08-2019 18:31-0500 Heart rate 86 /min Peter Petty MD Work Phone: [employer] Work Phone: 03-08-2019 18:31-0500 Respiratory rate 20 /min Peter Petty MD Work Phone: [employer] Work Phone: 03-08-2019 18:31-0500 SaO2% (BldA) [Mass fraction] 100 % Peter Petty MD Work Phone: [employer] Work Phone: 03-08-2019 18:31-0500 Systolic blood pressure 139 mm[Hg] Peter Petty MD Work Phone: [employer] Work Phone: 01-12-2019 23:01-0500 Pulse [facility]ximetry 99 % [facility] [employer] [facility] [employer] [facility], [place] 01-12-2019 22:49-0500 BP Diastolic 80 mm[Hg] [facility] [employer] [facility], [place] 01-12-2019 22:49-0500 BP Systolic 107 mm[Hg] [facility] [employer] [facility], [place] 01-12-2019 22:17-0500 Body Temperature 97.59 [degF] [facility] [place] 01-12-2019 22:17-0500 Body weight 55.02 kg [facility] [employer] [facility], [place] 01-12-2019 22:17-0500 Pulse (Heart Rate) 64 /min [facility] [employer] [facility] 01-12-2019 22:17-0500 Respiratory Rate 16 /min [facility] [place] 12-18-2018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 health care provider will talk about your medical history, including: Any past pregnancies. Your family's medical history. Medical history of the baby's father. Any long-term (chronic) health conditions you have and how you manage them. Any surgeries or procedures you have had. Any current ukjm-gxm-abggbiw or prescription medicines, herbs, or supplements that you are taking. Other factors that could pose a risk to your baby, including: ?Exposure to harmful chemicals or radiation at work or at home. ?Any substance use, including tobacco, alcohol, and drug use. Your home setting and your stress levels, including: ?Exposure to abuse or violence. ?Household financial strain. Your daily health habits, including diet and exercise. Tests and screenings Your health care provider will: Measure your weight, height, and blood pressure. Do a physical exam, including a pelvic and breast exam. Perform blood tests and urine tests to check for: ?Urinary tract infection. ?Sexually transmitted infections (STIs). ?Low iron levels in your blood (anemia). ?Blood type and certain proteins on red blood cells (Rh antibodies). ?Infections and immunity to viruses, such as hepatitis B and rubella. ?HIV (human immunodeficiency virus). Discuss your options for genetic screening. Tips about staying healthy Your health care provider will also give you information about how to keep yourself and your baby healthy, including: Nutrition and taking vitamins. Physical activity. How to manage symptoms such as nausea and vomiting (morning sickness). Infections and substances that may be harmful to your baby and how to avoid them. Food safety. Dental care. Working. Travel. Warning signs to watch for and when to call your health care provider. How often will I have care visits? After your first care visit, you will have regular visits throughout your . The visit schedule is often as follows: Up to week 28 of : once every 4 weeks. 28 36 weeks: once every 2 weeks. After 36 weeks: every week until delivery. Some women may have visits more or less often depending on any underlying health conditions and thehealth of the baby. Keep all follow-up and care visits. This is important. What happens during routine care visits? Your health care provider will: Measure your weight and blood pressure. Check for heart sounds. Measure the height of your uterus in your abdomen (fundal height). This may be measured starting around week 20 of . Check the position of your baby inside your uterus. Ask questions about your diet, sleeping patterns, and whether you can feel the baby move. Review warning signs to watch for and signs of labor. Ask about any symptoms you are having and how you are dealing with them. Symptoms may include: ?Headaches. ?Nausea and vomiting. ?Vaginal discharge. ?Swelling. ?Fatigue. ?Constipation. ?Changes in your vision. ?Feeling persistently sad or anxious. ?Any discomfort, including back or pelvic pain. ?Bleeding or spotting. Make a list of questions to ask your health care provider at your routine visits. What tests might I have during care visits? You may have blood, urine, and imaging tests throughout your , such as: Urine tests to check for glucose, protein, or signs of infection. Glucose tests to check for a form of diabetes that can develop during (gestational diabetes mellitus). This is usually done around week 24 of . Ultrasounds to check your baby's growth and development, to check for defects, and to check your baby's well-being. These can also help to decide when you should deliver your baby. A test to check for group B strep (GBS) infection. This is usually done around week 36 of . Genetic testing. This may include blood, fluid, or tissue sampling, or imaging tests, such as an ultrasound. Some genetic tests are done during the first trimester and some are done during the secondtrimester. What else can I expect during care visits? Your health care provider may recommend getting certain vaccines during . These may include: A yearly flu shot (annual influenza vaccine). This is especially important if you will be during flu season. Tdap (tetanus, diphtheria, pertussis) vaccine. Getting this vaccine during can protect your baby from whooping cough (pertussis) after . This vaccine may be recommended between weeks 27 and 36 of . A COVID-19 vaccine. Later in your , your health care provider may give you information about: Childbirth and classes. Choosing a health care provider for your baby. Umbilical cord banking. . control after your baby is born. The [facility] labor and delivery unit and how to set up a tour. Registering at the hospital before you go into labor. Where to find more information Office on Women's Health: womenshealth.gov [place] Association: americanpregnancy.org May Dimes: marchofdimes.org Summary care helps you and your baby stay as healthy as possible during . Your first care visit will most likely be the longest. You will have visits and tests throughout your to monitor your health and your baby's health. Bring a list of questions to your visits to ask your health care provider. Make sure to keep all follow-up and care visits. This information is not intended to replace advice given to you by your health care provider. Make sure you discuss any questions you have with your health care provider. Document Revised: 12/05/2020 Document Reviewed: 12/05/2020 [employer] Patient Education 2022 [employer] 09/16/2023 09:41:47 Morning Sickness Morning Sickness Morning sickness is when a woman feels nauseous during . This nauseous feeling may or may not come with vomiting. It often occurs in the morning, but it can be a problem at any time of day. Morning sickness is most common during the first trimester. In some cases, it may continue throughout . Although morning sickness is unpleasant, it is usually harmless unless the woman develops severe and continual vomiting (hyperemesis gravidarum), a condition that requires more intense treatment. What are the causes? The exact cause of this condition is not known, but it seems to be related to normal hormonal changes that occur in . What increases the risk? You are more likely to develop this condition if: You experienced nausea or vomiting before your . You had morning sickness during a previous . You are with more than one baby, such as twins. What are the signs or symptoms? Symptoms of this condition include: Nausea. Vomiting. How is this diagnosed? This condition is usually diagnosed based on your signs and symptoms. How is this treated? In many cases, treatment is not needed for this condition. Making some changes to what you eat may help to control symptoms. Your health care provider may also prescribe or recommend: Vitamin B6 supplements. Anti-nausea medicines. Payton. Follow these instructions at home: Medicines Take kads-cwf-cerfrjh and prescription medicines only as told by your health care provider. Do not use any prescription, tpqk-ubh-mkizjus, or herbal medicines for morning sickness without first talking with your health care provider. Take multivitamins before getting . This can prevent or decrease the severity of morning sickness in most women. Eating and drinking Eat a piece of dry toast or crackers before getting out of bed in the morning. Eat 5 or 6 small meals a day. Eat dry and bland foods, such as rice or a baked potato. Foods that are high in carbohydrates are often helpful. Avoid greasy, fatty, and spicy foods. Have someone cook for you if the smell of any food causes nausea and vomiting. If you feel nauseous after taking vitamins, take the vitamins at night or with a snack. Eat a protein snack between meals if you are hungry. Nuts, yogurt, and cheese are good options. Drink fluids throughout the day. Try payton tray made with real payton, payton tea made from fresh grated payton, or payton candies. General instructions Do not use any products that contain nicotine or tobacco. These products include cigarettes, chewing tobacco, and vaping devices, such as e-cigarettes. If you need help quitting, ask your health careprovider. Get an air purifier to keep the air in your house free of odors. Get plenty of fresh air. Try to avoid odors that trigger your nausea. Consider trying these methods to help relieve symptoms: ?Wearing an acupressure wristband. These wristbands are often worn for seasickness. ?Acupuncture. Contact a health care provider if: Your home remedies are not working and you need medicine. You feel dizzy or light-headed. You are losing weight. Get help right away if: You have persistent and uncontrolled nausea and vomiting. You faint. You have severe pain in your abdomen. Summary Morning sickness is when a woman feels nauseous during . This nauseous feeling may or may not come with vomiting. Morning sickness is most common during the first trimester. It often occurs in the morning, but it can be a problem at any time of day. In many cases, treatment is not needed for this condition. Making some changes to what you eat may help to control symptoms. This information is not intended to replace advice given to you by your health care provider. Make sure you discuss any questions you have with your health care provider. Document Revised: 10/07/2020 Document Reviewed: 09/16/2020 [employer] Patient Education 2022 [employer]. Follow Up Care 09/16/2023 08:35:35 With:Abdias Qureshi Address: [address], [facility] [address] [place] [address]- Business (1) When:09/19/2023 09:34:58 With:Pari Underwood Address:Unknown When:Within 3 Day(s) [facility]07-11-2024 NoteED Patient Education Note Obstetrics and Gynecology Care care is health care during . It helps you and your unborn baby (fetus) stay as healthy as possible. care may be provided by a recruiting and selection consultant, a family practice doctor, a mid-levelpractitioner (nurse practitioner or physician elementary assistant principal), or a childbirth and doctor (press operator instant print shop). How does this affect me? During , you will be closely monitored for any new conditions that might develop. To loweryour risk of complications, you and your health care provider will talk about any underlying conditions you have. How does this affect my baby? Early and consistent care increases the chance that your baby will be healthy during . care lowers the risk that your baby will be: ? Born early (prematurely). ? Smaller than expected at (small for gestational age). What can I expect at the first care visit? Your first care visit will likely be the longest. You should schedule your first care visit as soon as you know that you are . Your first visit is a good time to talk about any questions or concerns you have about . Medical history At your visit, you and your health care provider will talk about your medical history, including: ? Any past pregnancies. ? Your family's medical history. ? Medical history of the baby's father. ? Any long-term (chronic) health conditions you have and how you manage them. ? Any surgeries or procedures you have had. ? Any current wxeg-ctq-sjjfzlr or prescription medicines, herbs, or supplements that you are taking. ? Other factors that could pose a risk to your baby, including: ? Exposure to harmful chemicals or radiation at work or at home. ? Any substance use, including tobacco, alcohol, and drug use. ? Your home setting and your stress levels, including: ? Exposure to abuse or violence. ? Household financial strain. ? Your daily health habits, including diet and exercise. Tests and screenings Your health care provider will: ? Measure your weight, height, and blood pressure. ? Do a physical exam, including a pelvic and breast exam. ? Perform blood tests and urine tests to check for: ? Urinary tract infection. ? Sexually transmitted infections (STIs). ? Low iron levels in your blood (anemia). ? Blood type and certain proteins on red blood cells (Rh antibodies). ? Infections and immunity to viruses, such as hepatitis B and rubella. ? HIV (human immunodeficiency virus). ? Discuss your options for genetic screening. Tips about staying healthy Your health care provider will also give you information about how to keep yourself and your baby healthy, including: ? Nutrition and taking vitamins. ? Physical activity. ? How to manage symptoms such as nausea and vomiting (morning sickness). ? Infections and substances that may be harmful to your baby and how to avoid them. ? Food safety. ? Dental care. ? Working. ? Travel. ? Warning signs to watch for and when to call your health care provider. How often will I have care visits? After your first care visit, you will have regular visits throughout your . The visit schedule is often as follows: ? Up to week 28 of : once every 4 weeks. ? 28?36 weeks: once every 2 weeks. ? After 36 weeks: every week until delivery. Some women may have visits more or less often depending on any underlying health conditions and thehealth of the baby. Keep all follow-up and care visits. This is important. What happens during routine care visits? Your health care provider will: ? Measure your weight and blood pressure. ? Check for heart sounds. ? Measure the height of your uterus in your abdomen (fundal height). This may be measured starting around week 20 of . ? Check the position of your baby inside your uterus. ? Ask questions about your diet, sleeping patterns, and whether you can feel the baby move. ? Review warning signs to watch for and signs of labor. ? Ask about any symptoms you are having and how you are dealing with them. Symptoms may include: ? Headaches. ? Nausea and vomiting. ? Vaginal discharge. ? Swelling. ? Fatigue. ? Constipation. ? Changes in your vision. ? Feeling persistently sad or anxious. ? Any discomfort, including back or pelvic pain. ? Bleeding or spotting. Make a list of questions to ask your health care provider at your routine visits. What tests might I have during care visits? You may have blood, urine, and imaging tests throughout your , such as: ? Urine tests to check for glucose, protein, or signs of infection. ? Glucose tests to check for a form of diabetes that can develop during (gestational diabetes mellitus). This is usually done around week 24 (more content not included)...[facility]07-08-2024 Hospital Discharge instructions Patient Education 09/13/2023 11:32:46 Major Depressive Disorder, Adult Major Depressive Disorder, Adult Major depressive disorder (MDD) is a mental health condition. It may also be called clinical depression or unipolar depression. MDD causes symptoms of sadness, hopelessness, and loss of interest in things. These symptoms last most of the day, almost every day, for 2 weeks. MDD can also cause physical symptoms. It can interfere with relationships and with everyday activities, such as work, school,and activities that are usually pleasant. MDD may be mild, moderate, or severe. It may be single-episode MDD, which happens once, or recurrent MDD, which may occur multiple times. What are the causes? The exact cause of this condition is not known. MDD is most likely caused by a combination of things, which may include: Your personality traits. Kevil or conditioned behaviors or thoughts or feelings that reinforce negativity. Any alcohol or substance misuse. Long-term (chronic) physical or mental health illness. Going through a traumatic experience or major life changes. What increases the risk? The following factors may make someone more likely to develop MDD: A family history of depression. Being a woman. Troubled family relationships. Abnormally low levels of certain brain chemicals. Traumatic or painful events in childhood, especially abuse or loss of a parent. A lot of stress from life experiences, such as poor living conditions or discrimination. Chronic physical illness or other mental health disorders. What are the signs or symptoms? The main symptoms of MDD usually include: Constant depressed or irritable mood. A loss of interest in things and activities. Other symptoms include: Sleeping or eating too much or too little. Unexplained weight gain or weight loss. Tiredness or low energy. Being agitated, restless, or weak. Feeling hopeless, worthless, or guilty. Trouble thinking clearly or making decisions. Thoughts of suicide or thoughts of harming others. Isolating oneself or avoiding other people or activities. Trouble completing tasks, work, or any normal obligations. Severe symptoms of this condition may include: Psychotic depression.This may include false beliefs, or delusions. It may also include seeing, hearing, tasting, smelling, or feeling things that are not real (hallucinations). Chronic depression or persistent depressive disorder. This is low-level depression that lasts for at least 2 years. Melancholic depression, or feeling extremely sad and hopeless. Catatonic depression, which includes trouble speaking and trouble moving. How is this diagnosed? This condition may be diagnosed based on: Your symptoms. Your medical and mental health history. You may be asked questions about your lifestyle, including any drug and alcohol use. A physical exam. Blood tests to rule out other conditions. MDD is confirmed if you have the following symptoms most of the day, nearly every day, in a 2-week period: Either a depressed mood or loss of interest. At least four other MDD symptoms. How is this treated? This condition is usually treated by mental health professionals, such as psychologists, psychiatrists, and clinical social workers. You may need more than one type of treatment. Treatment may include: Psychotherapy, also called talk therapy or counseling. Types of psychotherapy include: ?Cognitive behavioral therapy (CBT). This teaches you to recognize unhealthy feelings, thoughts, and behaviors, and replace them with positive thoughts and actions. ?Interpersonal therapy (IPT). This helps you to improve the way you communicate with others or relate to them. ?Family therapy. This treatment includes members of your family. Medicines to treat anxiety and depression. These medicines help to balance the brain chemicals thataffect your emotions. Lifestyle changes. You may be asked to: ?Limit alcohol use and avoid drug use. ?Get regular exercise. ?Get plenty of sleep. ?Make healthy eating choices. ?Spend more time outdoors. Brain stimulation. This may be done if symptoms are very severe and other treatments have not worked. Examples of this treatment are electroconvulsive therapy and transcranial magnetic stimulation. Follow these instructions at home: Activity Exercise regularly and spend time outdoors. Find activities that you enjoy doing, and make time to do them. Find healthy ways to manage stress, such as: ?Meditation or deep breathing. ?Spending time in nature. ?Journaling. Return to your normal activities as told by your health care provider. Ask your health care provider what activities are safe for you. Alcohol and drug use If you drink alcohol: ?Limit how much you use to: ?0 1 drink a day for women who are not . ?0 2 drinks a day for men. ?Be aware of how much alcohol is in your drink. In the [place] one drink equals one 12 oz bottle of beer (355 mL), one 5 oz glass of wine (148 mL), or one 1 oz glass of hard liquor (44 mL). ?Discuss your alcohol use with your health care provider. Alcohol can affect any antidepressant medicines you are taking. Discuss any drug use with your health care provider. General instructions Take yect-zhn-adqgnzz and prescription medicines only as told by your health care provider. Eat a healthy diet and get plenty of sleep. Consider joining a support group. Your health care provider may be able to recommend one. Keep all follow-up visits as told by your health care provider. This is important. Where to find more information National [place] on Mental Illness: www.sylvia.org [place] National [place] of Mental Health: www.nimh.nih.gov Contact a health care provider if: Your symptoms get worse. You develop new symptoms. Get help right away if: You self-harm. You have serious thoughts about hurting yourself or others. You hallucinate. If you ever feel like you may hurt yourself or others, or have thoughts about taking your own life,get help right away. Go to your nearest emergency department or: Call your local emergency services (140 in the [place] Call a suicide crisis helpline, such as the National Suicide Prevention Lifeline at or 657 in the [place] This is open 24 hours a day in the [place] Text the Crisis Text Line at 077116 (in the [place] Summary Major depressive disorder (MDD) is a mental health condition. MDD causes symptoms of sadness, hopelessness, and loss of interest in things. These symptoms last most of the day, almost every day, for 2 weeks. The symptoms of MDD can interfere with relationships and with everyday activities. Treatments and support are available for people who develop MDD. You may need more than one type oftreatment. Get help right away if you have serious thoughts about hurting yourself or others. This information is not intended to replace advice given to you by your health care provider. Make sure you discuss any questions you have with your health care provider. Document Revised: 09/17/2021 Document Reviewed: 02/03/2020 [employer] Patient Education 2022 [employer]. Follow Up Care 09/08/2023 08:07:25 With:Pari Underwood PA-C Address: [address] [place] [phone] When:Within 3 Month(s) [facility] 07-08-2024 NotePatient Education Mental and Behavioral Health Major Depressive Disorder, Adult Major depressive disorder (MDD) is a mental health condition. It may also be called clinical depression or unipolar depression. MDD causes symptoms of sadness, hopelessness, and loss of interest in things. These symptoms last most of the day, almost every day, for 2 weeks. MDD can also cause physical symptoms. It can interfere with relationships and with everyday activities, such as work, school,and activities that are usually pleasant. MDD may be mild, moderate, or severe. It may be single-episode MDD, which happens once, or recurrent MDD, which may occur multiple times. What are the causes? The exact cause of this condition is not known. MDD is most likely caused by a combination of things, which may include: ? Your personality traits. ? Kevil or conditioned behaviors or thoughts or feelings that reinforce negativity. ? Any alcohol or substance misuse. ? Long-term (chronic) physical or mental health illness. ? Going through a traumatic experience or major life changes. What increases the risk? The following factors may make someone more likely to develop MDD: ? A family history of depression. ? Being a woman. ? Troubled family relationships. ? Abnormally low levels of certain brain chemicals. ? Traumatic or painful events in childhood, especially abuse or loss of a parent. ? A lot of stress from life experiences, such as poor living conditions or discrimination. ? Chronic physical illness or other mental health disorders. What are the signs or symptoms? The main symptoms of MDD usually include: ? Constant depressed or irritable mood. ? A loss of interest in things and activities. Other symptoms include: ? Sleeping or eating too much or too little. ? Unexplained weight gain or weight loss. ? Tiredness or low energy. ? Being agitated, restless, or weak. ? Feeling hopeless, worthless, or guilty. ? Trouble thinking clearly or making decisions. ? Thoughts of suicide or thoughts of harming others. ? Isolating oneself or avoiding other people or activities. ? Trouble completing tasks, work, or any normal obligations. Severe symptoms of this condition may include: ? Psychotic depression.This may include false beliefs, or delusions. It may also include seeing, hearing, tasting, smelling, or feeling things that are not real (hallucinations). ? Chronic depression or persistent depressive disorder. This is low-level depression that lasts forat least 2 years. ? Melancholic depression, or feeling extremely sad and hopeless. ? Catatonic depression, which includes trouble speaking and trouble moving. How is this diagnosed? This condition may be diagnosed based on: ? Your symptoms. ? Your medical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 on file Social Connections: Not on file Intimate Partner Violence: Not on file Housing Stability: Not on file Physical Exam: Physical Exam Vitals and nursing note reviewed. Constitutional: Appearance: Normal appearance. She is not ill-appearing. HENT: Head: Normocephalic. Right Ear: External ear normal. Left Ear: External ear normal. Nose: Nose normal. Mouth/Throat: Mouth: Mucous membranes are moist. Eyes: Pupils: Pupils are equal, round, and reactive to light. Cardiovascular: Rate and Rhythm: Normal rate. Pulmonary: Effort: Pulmonary effort is normal. Abdominal: General: There is no distension. Musculoskeletal: General: Normal range of motion. Cervical back: Normal range of motion. Skin: General: Skin is warm and dry. Capillary Refill: Capillary refill takes less than 2 seconds. Comments: There is some erythema to the right breast. I cannot appreciate any abscess or area requiring incision and drainage. To the left breast there is a small induration that is tender to touch in the absence of erythema. Nursing staff was present during my physical assessment Neurological: General: No focal deficit present. Mental Status: She is alert. Psychiatric: Behavior: Behavior normal. Vital Signs During ED Visit Patient Vitals for the past 24 hrs: BP Temp Temp src Pulse Resp SpO2 06/08/22 1320 117/70 98.7 F (37.1 C) Oral 82 18 97 % Orders/Results: Orders Placed This Encounter AMB REFERRAL TO FAMILY PRACTICE clindamycin 300 MG capsule Results for orders placed or performed in visit on 03/13/22 POCT URINALYSIS DIPSTICK AUTOMATED W/O SCOP Result Value Ref Range POCT APPEARANCE, URINE POCT COLOR, URINE POCT GLUCOSE, URINE neg mg/dL POCT BILIRUBIN, URINE neg POCT KETONES, URINE neg mg/dL POCT SPECIFIC GRAVITY, URINE 1.030 1.001 - 1.035 POCT BLOOD, URINE neg POCT PH, URINE 6.0 5 - 7 POCT PROTEIN, URINE neg mg/dL POCT UROBILINOGEN, URINE 0.2 0 - 2 E.U./dL POCT NITRITE, URINE neg POCT LEUKOCYTE, URINE neg POCT ESTERASE, URINE POCT BACTERIA, URINE POCT WBC, URINE POCT RBC, URINE POCT AMORPHOUS, URINE POCT CASTS, QUANTITATIVE, URINE POCT SQUAMOUS EPIS, URINE POCT RENAL EPIS, URINE POCT CRYSTALS, URINE POCT URINE COMMENTS, URINE POCT URINE Result Value Ref Range POCT URINE Negative Radiographic Imaging No orders to display Procedures: Procedures Medications Ordered/Given During ED Visit Medications - No data to display Medical Decision Making Due to patient's systemic complaints last night should be discharged home with some clindamycin. Home remedies including lactating 8-12 times a day and increasing her fluid intake with warm compresses and massage was described. Patient states a verbal understanding. Referral was placed primary careprovider. She agrees with plan of care, questions were encouraged and answered. Clinical Impression: 1. Mastitis Acute No follow-ups on file. New Prescriptions CLINDAMYCIN 300 MG CAPSULE Take 1 capsule by mouth 4 times daily for 10 days. Discontinued Medications No medications on file An After Visit Summary was printed and given to the patient with above information. Gumaro Moore CNP 06/08/22 3139 * Ananya Goodwin RN - 06/08/2022 1:22 PM EDT Intermittent problems with mastitis of both breasts; last night developed chills/shivering/ nausea;painful bilateral breasts Took Ibuprofen x2 @0930 A/ox4; still [facility] Phys[facility] Emergency department Note* Gumaro Moore CNP - 06/08/2022 1:32 PM EDT Emergency Department Report [facility] EMERGENCY MEDICINE Service Date:.06/08/22 PCP: No primary care provider on file. Chief Complaint: Chief Complaint Patient presents with Breast Problem HPI Kathrin Santana is a 21 y.o. female presents to the ED today due to What patient describes as mastitis. She had had some to the left breast that spontaneously resolved. She recently developed it to the right breast. She still has a small part to the left breast that is bothering her but the worst is the right. She is currently breast-feeding. Last night she developed some chills with some nausea. She has taken some ibuprofen. Review of Systems: Review of Systems Constitutional: Negative. HENT: Negative. Eyes: Negative. Negative for discharge. Respiratory: Negative. Negative for apnea. Cardiovascular: Negative. Negative for chest pain. Gastrointestinal: Negative. Negative for abdominal distention. Musculoskeletal: Negative for gait problem. mastitis Skin: Negative. Negative for color change. Neurological: Negative. Negative for facial asymmetry. Psychiatric/Behavioral: Negative. Negative for agitation. All other systems reviewed and are negative. Past Medical History: Past Medical History: Diagnosis Date Bipolar 1 disorder Herpes genitalis in women type 1 and 2 History of 2019 novel coronavirus disease (COVID-19) LGSIL on Pap smear of cervix 02/18/2021 Needs OB and PP Colposcopy Colposcopy done 03/13/21 and bx taken Migraines Past Surgical History: Past Surgical History: Procedure Laterality Date ORAL SURGERY gum surgery Allergies: No Known Allergies Medications: Patient's Medications New Prescriptions CLINDAMYCIN 300 MG CAPSULE Take 1 capsule by mouth 4 times daily for 10 days. Previous Medications BUPROPION 75 MG TABLET Take 1 tablet by mouth 2 times daily. Take one table daily for one week, then increase to twice daily thereafter. CHOLECALCIFEROL 25 MCG (1000 UNIT) TABLET Take 1 tablet by mouth daily. MAGNESIUM OXIDE 400 (240 MG) MG Take 1 tablet by mouth daily. VIT-FE FUMARATE-FA ( VITAMIN PLUS LOW IRON) 27-1 MG TABLET Take 1 tablet by mouth daily. VALACYCLOVIR (VALTREX) 500 MG TABLET Take 1 tablet by mouth daily. Modified Medications No medications on file Discontinued Medications No medications on file Family History: Family History Problem Relation Age of Onset Diabetes Sister Other - Specify Mother had recent hysterectomy No known problems Father Other - Specify Maternal Grandmother uterine fibroid hysterectomy done No known problems Maternal Grandfather Diabetes Paternal Grandmother Heart Disease - Other Paternal Grandfather Hypertension Paternal Grandfather Hypertension Sister preeclampsia Social History: Social History Socioeconomic History Marital status: Single Spouse name: Not on file Number of children: Not on file Years of education: Not on file Highest education level: Not on file Occupational History Not on file Tobacco Use Smoking status: Never Smokeless tobacco: Never Vaping Use Vaping Use: Former Substance and Sexual Activity Alcohol use: Not Currently Drug use: Not Currently Types: Marijuana Comment: last use 12/15/20 Sexual activity: Yes Partners: Male Other Topics Concern Service Not Asked Blood Transfusions Not Asked Caffeine Concern Not Asked Occupational Exposure Not Asked Hobby Hazards Not Asked Sleep Concern Not Asked Stress Concern Not Asked Weight Concern Not Asked Special Diet Not Asked Back Care Not Asked Exercise Not Asked Bike Helmet Not Asked Seat Belt Not Asked Domestic Violence Not Asked Social History Narrative Not on file Social Determinants of Health Financial Resource Strain: Not on file Food Insecurity: Not on file Transportation Needs: Not on file Physical Activity: Not on file Stress: Not on file Social Connections: Not on file Intimate Partner Violence: Not on file Housing Stability: Not on file Physical Exam: Physical Exam Vitals and nursing note reviewed. Constitutional: Appearance: Normal appearance. She is not ill-appearing. HENT: Head: Normocephalic. Right Ear: External ear normal. Left Ear: External ear normal. Nose: Nose normal. Mouth/Throat: Mouth: Mucous membranes are moist. Eyes: Pupils: Pupils are equal, round, and reactive to light. Cardiovascular: Rate and Rhythm: Normal rate. Pulmonary: Effort: Pulmonary effort is normal. Abdominal: General: There is no distension. Musculoskeletal: General: Normal range of motion. Cervical back: Normal range of motion. Skin: General: Skin is warm and dry. Capillary Refill: Capillary refill takes less than 2 seconds. Comments: There is some erythema to the right breast. I cannot appreciate any abscess or area requiring incision and drainage. To the left breast there is a small induration that is tender to touch in the absence of erythema. Nursing staff was present during my physical assessment Neurological: General: No focal deficit present. Mental Status: She is alert. Psychiatric: Behavior: Behavior normal. Vital Signs During ED Visit Patient Vitals for the past 24 hrs: BP Temp Temp src Pulse Resp SpO2 06/08/22 1320 117/70 98.7 F (37.1 C) Oral 82 18 97 % Orders/Results: Orders Placed This Encounter AMB REFERRAL TO FAMILY PRACTICE clindamycin 300 MG capsule Results for orders placed or performed in visit on 03/13/22 POCT URINALYSIS DIPSTICK AUTOMATED W/O SCOP Result Value Ref Range POCT APPEARANCE, URINE POCT COLOR, URINE POCT GLUCOSE, URINE neg mg/dL POCT BILIRUBIN, URINE neg POCT KETONES, URINE neg mg/dL POCT SPECIFIC GRAVITY, URINE 1.030 1.001 - 1.035 POCT BLOOD, URINE neg POCT PH, URINE 6.0 5 - 7 POCT PROTEIN, URINE neg mg/dL POCT UROBILINOGEN, URINE 0.2 0 - 2 E.U./dL POCT NITRITE, URINE neg POCT LEUKOCYTE, URINE neg POCT ESTERASE, URINE POCT BACTERIA, URINE POCT WBC, URINE POCT RBC, URINE POCT AMORPHOUS, URINE POCT CASTS, QUANTITATIVE, URINE POCT SQUAMOUS EPIS, URINE POCT RENAL EPIS, URINE POCT CRYSTALS, URINE POCT URINE COMMENTS, URINE POCT URINE Result Value Ref Range POCT URINE Negative Radiographic Imaging No orders to display Procedures: Procedures Medications Ordered/Given During ED Visit Medications - No data to display Medical Decision Making Due to patient's systemic complaints last night should be discharged home with some clindamycin. Home remedies including lactating 8-12 times a day and increasing her fluid intake with warm compresses and massage was described. Patient states a verbal understanding. Referral was placed primary careprovider. She agrees with plan of care, questions were encouraged and answered. Clinical Impression: 1. Mastitis Acute No follow-ups on file. New Prescriptions CLINDAMYCIN 300 MG CAPSULE Take 1 capsule by mouth 4 times daily for 10 days. Discontinued Medications No medications on file An After Visit Summary was printed and given to the patient with above information. Gumaro Moore CNP 06/08/22 3150 [facility] Discharge instructions* Discharge Instructions* Gumaro Moore CNP - 06/08/2022 1:31 PM EDT Increase your fluid intake * Attachments The following attachments cannot be sent through Care Everywhere. * Mastitis ([place]) [facility] Emergency department Note* Ananya Goodwin RN - 06/08/2022 1:22 PM EDT Intermittent problems with mastitis of both breasts; last night developed chills/shivering/ nausea;painful bilateral breasts Took Ibuprofen x2 @0930 A/ox4; still [facility] History of Present illness Narrative* Nahed Stewart MD - 04/22/2022 9:50 AM EST [facility] Outer Diameter Technician [facility] HPI: Ms. Kathrin Santana is a 21 y.o. who presents for Chief Complaint Patient presents with Follow-up Anxiety 3 week follow up on Anxiety Ms. Santana presents for follow-up of increasing anxiety. At her last visit 3 weeks ago, she was started on Wellbutrin 75mg biD, with a taper up from once daily for one week. Since starting medication, she reports sleeping through the night generally, but occasionally she wakes up for childcare needs. She says she is able to return to sleep easily. She has been more motivated to go out for walks and engage in activities. The feelings of guilt have nearly resolved. She reports a good energy level every day. She notes a recent stomach virus, but otherwise her appetite has returned to normal. She says she has not had any shaking or anger, but occasionally notes some irritation to small things. She still has some difficulty concentrating and feels this may be a side effect. She denies suicidal ideations. Outer Diameter Technician History: Last menstrual period: No LMP recorded. Menarche: Age 14 Menses: Prior to , every month, with 4 days of heavy to medium bleeding. Menopause: N/A Last Pap: NILM (10/03/21) History of abnormal Paps: Abnormal x1. Normal repeat. History of STIs: HSV. Sexual activity: Partnered for 2 years this past December. Contraception: Withdrawal Family Outer Diameter Technician Cancer: Denies Mammogram: Due at age 42 Colonoscopy: Due at age 47 Bone Density: Due at age 67 REVIEW OF SYSTEMS She denies any vaginal bleeding, pain, itching, burning, discharge, or odor. She denies headache, changes in vision, fevers, chills, cough, shortness of breath, nausea, vomiting, diarrhea, constipation, dysuria, or swelling of her extremities. PHYSICAL EXAMINATION BP 110/62 (BP Location: Left arm, BP Position: Sitting) Wt 118 lb 9.6 oz (53.8 kg) BMI 21.01 kg/m Smoking Status Never General: WNWD, NAD Pulm: Normal work of breathing Ext: Moving all extremities Pelvic: Deferred ASSESSMENT AND PLAN Ms. Kathrin Santana is a 21 y.o. who presents for follow-up depression. - Continue Wellbutrin 75mg twice daily. Follow-up in 6 months Future Appointments Date Time Provider Department Center 10/19/2022 10:20 AM Nahed Stewart MD [address] [place] [address] 04/22/2022 Nahed Stewart MD [facility] History of Present illness Narrative* Suzette Larios LPN - 03/20/2022 2:50 PM EST Follow up on Anxiety * Nahed Stewart MD - 03/20/2022 2:50 PM EST [facility] Out[employer] Diameter Technician [facility] HPI: Ms. Kathrin Santana is a 21 y.o. who presents for Chief Complaint Patient presents with Follow-up Follow up on Anxiety Ms. Santana presents for report of increasing anxiety. She notes that she stopped Prozac a few monthsago because she felt it made her angry all of the sudden. Since stopping, she has felt a steady increase in her anxiety level and requests to restart something different today. She reports sleep disruption. She has had a loss of interest in activities, feelings of guilt, variable energy, difficulty concentrating, and loss of appetite. She also experiences occasional shakingwith agitation. She denies suicidal ideations. Outer Diameter Technician History: Last menstrual period: No LMP recorded (lmp unknown). Menarche: Age 14 Menses: Prior to , every month, with 4 days of heavy to medium bleeding. Menopause: N/A Last Pap: NILM (10/03/21) History of abnormal Paps: Abnormal x1. Normal repeat. History of STIs: HSV. Sexual activity: Partnered for 2 years this past December. Contraception: Withdrawal Family Outer Diameter Technician Cancer: Denies Mammogram: Due at age 42 Colonoscopy: Due at age 47 Bone Density: Due at age 67 REVIEW OF SYSTEMS She denies any vaginal bleeding, pain, itching, burning, discharge, or odor. She denies headache, changes in vision, fevers, chills, cough, shortness of breath, nausea, vomiting, diarrhea, constipation, dysuria, or swelling of her extremities. PHYSICAL EXAMINATION BP 118/70 (BP Location: Left arm, BP Position: Sitting) Wt 125 lb 6.4 oz (56.9 kg) BMI 22.21 kg/m Smoking Status Never General: WNWD, NAD Pulm: Normal work of breathing Ext: Moving all extremities Pelvic: Deferred ASSESSMENT AND PLAN Ms. Kathrin Santana is a 21 y.o. who presents for depression. - Start Wellbutrin 75mg every day for one week, then increase to twice daily dosing. Follow-up symptoms and medication in 3 weeks Future Appointments Date Time Provider Department Center 04/10/2022 2:50 PM Nahed Stewart MD [address] [place] [address] 10/06/2022 11:00 AM Nahed Stewart MD [address] [place] [address] 03/20/2022 Nahed Stewart MD documented in this [facility]08-19-2022 History of Present illness Narrative* Nahed Stewart MD - 10/24/2021 2:50 PM EDT [facility] Out[employer] Diameter Technician [facility] HPI: Ms. Kathrin Santana is a 21 y.o. who presents for Chief Complaint Patient presents with Medication Follow-up 4 wk follow up on Prozac Ms. Santana reports complete resolution of her symptoms She denies sleep disruption, loss of interest in activities, feelings of guilt, low energy, difficulty concentrating, changes in appetite, psychomotor symptoms, or suicidal ideations. She has not yet received her MMR vaccine. Outer Diameter Technician History: Last menstrual period: Patient's last menstrual period was 10/19/2021 (approximate). Menarche: Age 14 Menses: Prior to , every month, with 4 days of heavy to medium bleeding. Menopause: N/A Last Pap: NILM (10/03/21) History of abnormal Paps: Abnormal x1. Normal repeat. History of STIs: HSV. Sexual activity: Partnered for 2 years in December. Contraception: Depo (last dose 10/03/21) Family Outer Diameter Technician Cancer: Denies Mammogram: Due at age 42 Colonoscopy: Due at age 47 Bone Density: Due at age 67 REVIEW OF SYSTEMS She reports vaginal spotting. She denies any vaginal pain, itching, burning, discharge, or odor. She denies headache, changes in vision, fevers, chills, cough, shortness of breath, nausea, vomiting, diarrhea, constipation, dysuria, or swelling of her extremities. She denies any heat/cold intolerance, activity or appetite change, unexpected weight change, changes in hair or nails, weakness or fatigue, anxiety or palpitations, neck pain or trouble swallowing. PHYSICAL EXAMINATION BP 120/62 (BP Location: Left arm, BP Position: Sitting) Ht 5' 3 (1.6 m) Wt 130 lb (59 kg) BMI 23.03 kg/m Smoking Status Never Smoker General: WNWD, NAD Cardio: RRR Pulm: CtAB. Normal work of breathing Abd: Soft, NTND Ext: No LE edema. No calf TTP. Pelvic: Deferred ASSESSMENT AND PLAN Ms. Kathrin Santana is a 21 y.o. who presents for depression. - Continue Prozac 10mg daily. - Valtrex refilled Follow-up at annual exam, already scheduled as detailed below. Future Appointments Date Time Provider Department Center 12/19/2021 11:00 AM GURJIT SIMONS [id number] NURSE, [place] GURJIT SIMONS 10/06/2022 11:00 AM Nahed Stewart MD GURJIT SIMONS 10/24/2021 Nahed Stewart MD documented in this [facility]05-31-2022 History of Present illness Narrative* Nahed Stewart MD - 08/05/2021 9:20 AM EDT [facility] [place] 21 y.o. at 37w3d 1. Bipolar - no current meds 2. Marijuana use - last used January 3. HSV - compliant with suppression 4. Abnormal Pap - Needs repeat 12 weeks 5. RNI - MMR Today: No issues. Cervix 1cm She is expecting a little boy and plans to name him Hector. - Return OB visit in 1 week. * Suzette Larios LPN - 08/05/2021 9:20 AM EDT 37.3 GBBS done 07/28/21 Negative. documented in this [facility]05-23-[facility] History of Present illness Narrative* Kindra Yan LPN - 07/28/2021 9:10 AM EDT 36.2 here for REYNA. Reports good FM. Denies any VB, LOF, or contractions. 1+ edema noted to BLE and bilat hands. Needs GBBS today. * Doyle Amaro MD - 07/28/2021 9:10 AM EDT No concerns. Good movement. GBBS cultures done today 1. Hx of HSV - Valtrex rx sent today for daily suppression. 2. Hx of bipolar depression - doing well off meds. 3. Marijuana use - has not used since 01/2021 per pt. 4. 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 5. Rubella non-immune - will need vaccination. documented in this [facility]05-23-2022 Miscellaneous Notes* Addendum Note - Jewell Figueroa RN - 07/28/2021 9:10 AM EDTAddended by: JEWELL FIGUEROA on: 07/28/2021 09:35 AM Modules accepted: [facility] Note* Addendum Note - Jewell Figueroa RN - 07/28/2021 9:10 AM EDTAddended by: JEWELL FIGUEROA on: 07/28/2021 09:35 AM Modules accepted: Orders [facility]05-09-[facility] History of Present illness Narrative* Adrianna Fuentes LPN - 07/14/2021 9:20 AM EDT Patient is 34w2d here for OB follow up. Has been getting headaches with blurry vision- usually taking contacts out and putting glasses on helps. * KIRSTEN Steel - 07/14/2021 9:20 AM EDT Pt doing well. Denies concerns. 1. Hx of HSV - Valtrex rx sent today for daily suppression. 2. Hx of bipolar depression - doing well off meds. 3. Marijuana use - has not used since 01/2021 per pt. 4. 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 5. Rubella non-immune - will need vaccination. documented [facility] this [facility]04-25-[facility] History of Present illness Narrative* Jewell Figueroa RN - 06/30/2021 9:50 AM EDT Reports edema of feet. C/o head ache past week with blurred vision and floaters at times, feels like lights are brighter and flashy. Recently seen per eye Dr 03/2021, has new prescription. Patient with history of migraines, states this is different. Reports pressure in eyes, and head throbbing. * Doyle Amaro MD - 06/30/2021 9:50 AM EDT Patient doing well. No concerns. 1. Hx HSV: Needs suppression at 35 weeks 2. Hx of bipolar depression - still off all meds 3. Marijuana use: Not used in 01/26 per patient report 4. LgSIL: Needs colp 5. Rubella non-immune: Will need vaccination. [facility] History of Present illness Narrative* Adrianna Fuentes LPN - 06/16/2021 9:20 AM EDT Patient is 30w2d here for OB follow up. Denies concerns. * KIRSTEN Steel - 06/16/2021 9:20 AM EDT Pt doing well. Denies concerns. 1. 3rd tri labs reviewed, wnl. 2. HSV - will need Valtrex suppression therapy at 35 weeks. 3. Bipolar depression - doing well off meds. 4. Marijuana - has not used since 01/2021. 5. 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 6. Rubella non-immune - will need vaccine . [facility] History of Present illness Narrative* Nahed Stewart MD - 06/02/2021 9:20 AM EDT [facility] [place] 20 y.o. at 28w2d 1. Bipolar - no meds currently 2. Marijuana use - reports cessation as of January 2021 3. HSV - start suppression at 35 weeks 4. Abnormal Pap - will need repeat pap 12 weeks 5. RNI - MMR Today: Glucola, TDaP, and 28wk labs today. - Return OB visit in 2 weeks. * Suzette Larios LPN - 06/02/2021 9:20 AM EDT 28.2, Tdap and 28 week labs drawn. [facility] History of Present illness Narrative* Adrianna Fuentes LPN - 05/13/2021 10:20 AM EST Patient is 25w3d here for OB follow up. Denies concerns. Glucola and 28 week packet given and reviewed. * KIRSTEN Steel - 05/13/2021 10:20 AM EST Pt doing well. Denies concerns. 1. Hx of bipolar disorder - not on medications, doing well. 2. Hx of marijuana use - pt states quit 01/2021. 3. Rubella non-immune - will need immunization . 4. AFP negative. 5. LGSIL - had OB colp and will need colp . 6. Hx of herpes - will need daily Valtrex at 35 weeks. 7. Verbal and written glucose instructions given for next appt. Pt verbalizes understanding. 8. Discussed tdap for next appt and pt thinking about. [facility] History of Present illness Narrative* Nahed Stewart MD - 04/22/2021 3:00 PM EST [facility] [place] 20 y.o. at 22w3d Bipolar, marijuana use, HSV, abnormal Pap, RNI -VB, -LOF, -Ctx, +FM She reports frequent N/V with heartburn symptoms. She was advised to have her large meals earlier in the day, and for dinner have foods that are easier to digest - soups, cereal, etc. She was advisedto avoid foods that are slow to digest like fatty foods (e.g. fried foods, foods with cheese, butter, oil, etc). She was advised to treat heartburn early with Tums or Pepcid. Today: Normal anatomy scan - Return OB visit in 3 weeks. Future Appointments Date Time Provider Department Center 05/13/2021 10:20 AM Malka Allison, SOL[facility] [employer] ARCHITECT 043OG GURJIT GAL 06/10/2021 2:30 PM GURJIT GAL [id number] OB ULTRASOUND, AVG 043OU GURJIT GAL * Suzette Larios LPN - 04/22/2021 3:00 PM EST 22.3, Anatomy US. documented in this [facility]01-06-2022 Miscellaneous Notes* Assessment & Plan Note - Jewell Figueroa RN - 03/13/2021 10:39 AM EST Associated Problem(s): LGSIL on Pap smear of cervix OB Colposcopy done 03/13/2021 * Addendum Note - Jewell Figueroa RN - 03/13/2021 10:20 AM EST Addended by: JEWELL FIGUEROA on: 03/13/2021 11:23 AM Modules accepted: Orders documented in this [facility]01-06-2022 History of Present illness Narrative* Doyle Amaro MD - 03/13/2021 10:20 AM EST Associated Order(s): COLPOSCOPY Post-Procedure Diagnose(s): LGSIL on Pap smear of cervix Images from the original note were not included. COLPOSCOPY Date/Time: 03/13/2021 10:20 AM Performed by: Doyle Amaro MD Authorized by: Doyle Amaro MD Pre-Procedure: Pap Result: Low grade squamous intraepithelial lesion (LGSIL). The patient was given a verbal description of the intended procedure including the risks and benefits of the procedure. The patient was then able to provide written informed consent for the above procedure. Current method of control: . Procedure: Procedure: Colposcopy w/ biopsy of cervix With patient in supine lithotomy position, speculum placed in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 General Family Medicine 05/28/17 Senior Restaurant Manager Relationship Specialty Start Date End Date Kelli Amaya MD PCP - General Family Medicine 05/28/17 Senior Restaurant Manager Relationship Specialty Start Date End Date Kelli Amaya MD PCP - General Family Medicine 05/28/17 Senior Restaurant Manager Relationship Specialty Start Date End Date Kelli Amaya MD PCP - General Family Medicine 05/28/17 FOR RECORDS PERTAINING TO PATIENTS WHO ARE OR HAVE BEEN ENROLLED IN A CHEMICAL DEPENDENCY/SUBSTANCEABUSE PROGRAM, SOME INFORMATION MAY BE OMITTED. This clinical summary was aggregated from multiple sources. Caution should be exercised in using it in the provision of clinical care. This summary normalizes information from multiple sources, and as a consequence, information in this document may materially change the coding, format and clinical context of patient data. In addition, data may be omitted in some cases. CLINICAL DECISIONS SHOULD BE BASED ON THE PRIMARY CLINICAL RECORDS. [facility]. provides no warranty or guarantee of the accuracy or completeness of information in this document.
[2024-02-26 18:17] VITALS: PULSE 115; TEMP 37.3
[2024-02-26] MEDS: 0.9 % SODIUM CHLORIDE 1,000 ML 999 ML IV (18:40)
[2024-02-26 18:50] LABS: Bilirubin Urine SMALL (NEGATIVE); Blood Urine SMALL (NEGATIVE); Clarity Urine CLEAR (CLEAR); Color Urine LT. YELLOW (YELLOW); Glucose Urine UA NEGATIVE (NEGATIVE); Ketones Urine >=80 mg/dL (NEGATIVE); Leukocyte Esterase Urine NEGATIVE (NEGATIVE); Nitrite Urine NEGATIVE (NEGATIVE); Protein Urine 100 mg/dL (NEG/TRACE); Specific Gravity Urine >=1.030 (1.005-1.025); Urobilinogen Urine 0.2 EU/dL (0.2-1.0)
[2024-02-26 18:54] LABS: Urine Microscopic Indicated YES
[2024-02-26] MEDS: ONDANSETRON PF 4 MG/2 ML VIAL IV (18:55)
[2024-02-26 19:02] LABS: Bacteria Urine TRACE #/HPF (NONE SEEN); Cast Seen? SEEN #/LPF (NONE SEEN); Crystals Seen? None Seen #/HPF (None Seen); Mucus Urine MODERATE (NONE SEEN); RBC Urine 0-2 #/HPF (0-2); Squamous Epithelial Cell Urine MANY #/LPF (NONE/RARE)
[2024-02-26 19:03] LABS: Fine Granular Casts Urine FEW
[2024-02-26] MEDS: 0.9 % SODIUM CHLORIDE 1,000 ML 1000 ML IV (19:49)
[2024-02-26] MEDS: CEFAZOLIN SODIUM/DEXTROSE,ISO 2 GM/50 ML PIGGYBACK IV (19:52)
[2024-02-26 20:28] LABS: Basophils Percent Auto 0.3 % (0.2-2.0); Hematocrit 38.4 % (36.0-48.0); Hemoglobin 12.3 g/dL (12.0-16.0); Immature Granulocytes Abs Auto 0.18 10^3/uL (0.00-0.03); Immature Granulocytes Pct Auto 1.6 % (0.0-0.5); Lymphocytes Absolute Auto 0.8 10^3/uL (1.2-3.8); Lymphocytes Percent Auto 7.3 % (20.5-60.0); Mean Corpuscular Hemoglobin 27.3 pg (26.7-34.0); Mean Corpuscular Volume 85.1 fL (81.0-99.0); Mean Platelet Volume 9.8 fL (9.5-13.5); Monocytes Percent Auto 8.5 % (1.7-12.0); Neutrophils Absolute Auto 9.4 10^3/uL (1.4-6.5); Neutrophils Percent Auto 82.3 % (43.0-75.0); Platelet Count 257 10^3/uL (150-450); Red Blood Count 4.51 10^6/uL (4.20-5.40); Red Cell Distribution Width 13.1 % (11.0-15.0); White Blood Count 11.4 10^3/uL (4.0-11.0)
--- NOTE | 2024-02-26 21:15 | PC.NURSE ---
1999- Multiple attempts to draw labs on patient without success. This RN, Cone Tender, Rox Rueda RN and Joo LUQUE made attempts with out success.
[2024-02-26] MEDS: PROMETHAZINE HCL 25 MG SUPP.RECT PR (21:43)
[2024-02-26 22:00] VITALS: TEMP 38.6
[2024-02-26 23:46] LABS: Alanine Aminotransferase 54 U/L (14-59); Albumin Globulin Ratio 0.5; Albumin Level 2.3 g/dL (3.4-5.0); Alkaline Phosphatase 117 U/L (46-116); Aspartate Amino Transferase 40 U/L (15-37); BUN Creatinine Ratio 8.6; Bilirubin Total 0.4 mg/dL (0.2-1.0); Calcium 8.1 mg/dL (8.5-10.1); Carbon Dioxide 11.6 mmol/L (21.0-32.0); Chloride 105 mmol/L (98-107); Estimated GFR (African America >60 (>=60 mL/min/1.73m^2); Estimated GFR (Non-African Ame >60 (>=60 mL/min/1.73m^2); Globulin 4.3 g/dL; Glucose 77 mg/dL (74-106); Potassium 3.6 mmol/L (3.5-5.1); Sodium 135 mmol/L (136-145); Total Protein 6.6 g/dL (6.4-8.2)
[2024-02-27] VITALS (9 sets, daily range): BP systolic 107–120; BP diastolic 55–68; PULSE 80–104; TEMP 36.7–38.4; O2SAT 98–99
[2024-02-27] MEDS: ACETAMINOPHEN 500 MG TABLET PO ×2 (00:36→16:20)
[2024-02-27] MEDS: PANTOPRAZOLE SODIUM 40 MG VIAL IV ×2 (00:37→20:30)
[2024-02-27] MEDS: 0.9 % SODIUM CHLORIDE 1,000 ML 150 ML IV ×4 (02:49→22:59)
[2024-02-27] MEDS: CEFAZOLIN SODIUM/DEXTROSE,ISO 1 GM/50 ML PREMIX IV ×3 (03:32→18:52)
--- NOTE | 2024-02-27 04:36 | PC.NURSE ---
Patient denies any nausea at this time. Fever broke and patient is resting well.
--- NOTE | 2024-02-27 07:22 | PC.NURSE ---
Report given to Manish Rueda RN
--- NOTE | 2024-02-27 10:37 | P.OBHP_ITS ---
OB - H&P: HPI History of Present Illness Chief complaint: Back Pain rule out labor FEVER : 2 Para: 1 Gestational age based on last menstrual period: 31 5/7wks Narrative: 23 yo at 31 3/7wks presents with nausea and vomiting, complains of severe acid reflux, generalized weakness and fever, denies ctxns, lof, vb, uti like symptoms History of Present care: good care Review of Systems ROS Status of ROS: 10 or more systems reviewed and unremarkable except as noted in history and below PFSH PFSH Social History Little interest or pleasure in doing things: not at all Feeling down, depressed, or hopeless: not at all Meds Home Medications and Allergies Home Medications ?Medication ?Instructions ?Recorded ?Confirmed ?Type amoxicillin 500 mg capsule 500 mg PO TID 10 days #30 caps 02/18/24 02/26/24 Rx fluticasone propionate 50 2 spray intranasal DAILY #16 grams 02/18/24 02/26/24 Rx mcg/actuation nasal spray,suspension (24 Hour Allergy Relief) omeprazole 20 mg capsule,delayed 20 mg PO DAILY 02/26/24 02/26/24 History release vitamin with calcium 1 tab PO DAILY 02/26/24 02/26/24 History no.72-iron 27 mg-folic acid 1 mg tablet ( Vitamins Plus Low Iron) Allergies Allergy/AdvReac Type Severity Reaction Status Date / Time No Known Drug Allergies Allergy Verified 02/18/24 08:17 Exam Constitutional Vital Signs, click to edit/add: Last Vital Signs Temp 98.5 F 02/27/24 09:21 Pulse 88 02/27/24 08:15 Resp 20 02/27/24 08:15 BP 107/63 02/27/24 08:15 Pulse Ox 99 02/27/24 09:23 O2 Del Method Room Air 02/27/24 09:23 Documenting provider has reviewed patient's vital signs: yes Common normals: no apparent distress Respiratory Common normals: normal respiratory effort and clear to auscultation bilaterally Cardio Common normals: regular rate and regular rhythm GI Common normals: Normal to inspection, nondistended, normoactive bowel sounds present Extremity Common normals: no calf tenderness Results Labs Labs: Short CBC 02/26/24 Range/Units 20:15 WBC 11.4 H (4.0-11.0) 10^3/uL Hgb 12.3 (12.0-16.0) g/dL Hct 38.4 (36.0-48.0) % Plt Count 257 (150-450) 10^3/uL BMP 02/26/24 23:20 Sodium 135 L Potassium 3.6 Chloride 105 Carbon Dioxide 11.6 L BUN 5.0 L Creatinine 0.58 Glucose 77 Calcium 8.1 L Liver Function 02/26/24 Range/Units 23:20 Total Bilirubin 0.4 (0.2-1.0) mg/dL AST 40 H (15-37) U/L ALT 54 (14-59) U/L Alkaline Phosphatase 117 H (46-116) U/L Albumin 2.3 L (3.4-5.0) g/dL Urine 02/26/24 Range/Units 18:15 Urine Color Lt. yellow (YELLOW) Urine Clarity Clear (CLEAR) Urine pH 6.0 (5.0-9.0) Ur Specific [place] >=1.030 A (1.005-1.025) Urine Protein 100 A (NEG/TRACE) mg/dL Urine Glucose (UA) Negative (NEGATIVE) mg/dL OB - A/P Assessment and Plan (1) Intrauterine : (2) Viral gastroenteritis: Assessment and Plan: labs reviewed, iv hydration, iv antiemetics, cont iv abx, obtain labs in am, obtain growth and bpp, obtain records for , obtain influenza a and b, cont to observe increase diet as tolerated (3) Nausea and vomiting during : (4) Fever and chills: (5) Fatigue:
[2024-02-27] MEDS: METOCLOPRAMIDE HCL 10 MG/2 ML VIAL IVP ×2 (11:03→17:17)
[2024-02-27] MEDS: ONDANSETRON PF 4 MG/2 ML VIAL IV ×2 (11:03→17:17)
[2024-02-27 12:14] LABS: Influenza Virus A Antigen Negative; Influenza Virus B Antigen Negative; Internal Control Within Normal Limits
[2024-02-27] MEDS: CODEINE 10 MG/GUAIFENESIN 100 MG 5 ML CUP 10 ML PO (22:45)
[2024-02-28 01:20] VITALS: BP 109/59; PULSE 78
[2024-02-28] MEDS: CEFAZOLIN SODIUM/DEXTROSE,ISO 1 GM/50 ML PREMIX IV ×2 (03:15→10:36)
[2024-02-28] MEDS: 0.9 % SODIUM CHLORIDE 1,000 ML 150 ML IV (06:19)
[2024-02-28 06:21] LABS: Basophils Percent Auto 0.5 % (0.2-2.0); Hematocrit 29.5 % (36.0-48.0); Hemoglobin 9.5 g/dL (12.0-16.0); Immature Granulocytes Abs Auto 0.08 10^3/uL (0.00-0.03); Immature Granulocytes Pct Auto 1.9 % (0.0-0.5); Lymphocytes Absolute Auto 0.9 10^3/uL (1.2-3.8); Lymphocytes Percent Auto 21.7 % (20.5-60.0); Mean Corpuscular HGB Conc 32.2 g/dL (29.9-35.2); Mean Corpuscular Hemoglobin 27.1 pg (26.7-34.0); Mean Platelet Volume 9.2 fL (9.5-13.5); Monocytes Absolute Auto 0.4 10^3/uL (0.3-0.8); Monocytes Percent Auto 9.3 % (1.7-12.0); Neutrophils Absolute Auto 2.8 10^3/uL (1.4-6.5); Neutrophils Percent Auto 65.6 % (43.0-75.0); Platelet Count 184 10^3/uL (150-450); Red Blood Count 3.51 10^6/uL (4.20-5.40); Red Cell Distribution Width 13.4 % (11.0-15.0); White Blood Count 4.2 10^3/uL (4.0-11.0)
[2024-02-28] MEDS: CODEINE 10 MG/GUAIFENESIN 100 MG 5 ML CUP 10 ML PO ×2 (06:33→10:57)
--- NOTE | 2024-02-28 06:39 | PC.NURSE ---
FBC blood draw from PICC line.
[2024-02-28 06:47] LABS: Alanine Aminotransferase 31 U/L (14-59); Albumin Globulin Ratio 0.5; Albumin Level 1.8 g/dL (3.4-5.0); Alkaline Phosphatase 98 U/L (46-116); Anion Gap 17.3; Aspartate Amino Transferase 26 U/L (15-37); BUN Creatinine Ratio 2.8; Bilirubin Total 0.6 mg/dL (0.2-1.0); Blood Urea Nitrogen <1.0 mg/dL (7.0-18.0); Calcium 7.6 mg/dL (8.5-10.1); Chloride 110 mmol/L (98-107); Estimated GFR (African America >60 (>=60 mL/min/1.73m^2); Estimated GFR (Non-African Ame >60 (>=60 mL/min/1.73m^2); Globulin 3.3 g/dL; Glucose 77 mg/dL (74-106); Potassium 3.3 mmol/L (3.5-5.1); Sodium 141 mmol/L (136-145); Total Protein 5.1 g/dL (6.4-8.2)
[2024-02-28 06:50] LABS: Amylase 68 U/L (25-115)
--- NOTE | 2024-02-28 07:11 | W.PC.ACHO ---
Registration Status: ADM NATHAN Primary Language: Preferred Language: Report given 02/28/24 at 0700. Care relinquished. Active Medications Generic Name Dose Route Start Last Admin Trade Name oCltq PRN Reason Stop Dose Admin Acetaminophen 500 mg 02/27/24 10:41 02/27/24 16:20 Acetaminophen 500 Mg Tablet PO 500 mg Q6H PRN Administration pain or fever Acetaminophen 1,000 mg 02/27/24 10:41 Acetaminophen 500 Mg Tablet PO Q6H PRN pain and fever Calcium Carbonate 500 mg 02/27/24 10:41 Calcium Carbonate 500 Mg (200mg Elemental) Tab Chew PO TID PRN Heartburn Guaifenesin/Codeine Phosphate 10 ml 02/27/24 22:02 02/28/24 06:33 Codeine 10 Mg/Guaifenesin 100 Mg 5 Ml Cup PO 10 ml Q6H PRN Administration Cough Promethazine HCl 12.5 mg/ 50.5 mls @ 202 mls/hr 02/26/24 18:13 Sodium Chloride IV ONCE PRN refractory vomiting Cefazolin Sodium/Dextrose 1 gm in 50 mls @ 100 mls/hr 02/27/24 03:00 02/28/24 03:45 Ancef 1 Gm Premix IV Infused Q8H MARGARET Infusion Sodium Chloride 1,000 mls @ 150 mls/hr 02/27/24 02:30 02/28/24 06:19 Sodium Chloride 0.9% 1,000 Ml IV 150 mls/hr .Q6H40M MARGARET Administration Metoclopramide HCl 10 mg 02/27/24 10:41 02/27/24 17:17 Metoclopramide Hcl 10 Mg/2 Ml Vial IVP 10 mg Q6H PRN Administration Vomiting Ondansetron HCl 4 mg 02/26/24 18:13 02/27/24 17:17 Ondansetron Pf 4 Mg/2 Ml Vial IV 4 mg Q6H PRN Administration Nausea Pantoprazole Sodium 40 mg 02/27/24 11:00 02/27/24 20:30 Pantoprazole Sodium 40 Mg Vial IV 40 mg Q24H MARGARET Administration Diet Category Date Time Status Regular Consistency Diet Diet 02/27/24 15:22 Active IV Insertion/Site Date of IV Line Insertion [ 02/26/24 PICC Single Lumen Right Forearm] IV Insertion Time [PICC Single 22:15 Lumen Right Forearm] Respiratory Pulse Oximetry 98 Pulse Oximetry 99 Pulse Oximetry 99 Oxygen Delivery Method Room Air Oxygen Delivery Method Room Air Oxygen Delivery Method Room Air Oxygen Delivery Method Room Air Oxygen Delivery Method Room Air Oxygen Delivery Method Room Air Cardiology Heart Sounds Strong,Regular Heart Sounds Strong,Regular Bowels Bowel Pattern No Bowel Movement Date of Last Bowel Movement 02/23/24 Renal Bladder Pattern Continent Bladder Pattern Continent Bladder Pattern Continent Bladder Pattern Continent
--- NOTE | 2024-02-28 07:44 | PC.NURSE ---
asleep, awakened by RN and voices no complaints, ultrasound in to do bpp
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
[2024-02-28 08:33] VITALS: BP 103/58; PULSE 118
--- NOTE | 2024-02-28 08:36 | PM.OBPN ---
OB - PN: Subj Subjective Patient comments: no complaints and pain well controlled [place] status: doing well Exam Constitutional Vital Signs, click to edit/add: Last Vital Signs Temp 98.5 F 02/27/24 19:30 Pulse 118 H 02/28/24 08:33 Resp 14 02/28/24 01:15 BP 103/58 02/28/24 08:33 Pulse Ox 98 02/27/24 16:25 O2 Del Method Room Air 02/28/24 01:15 Documenting provider has reviewed patient's vital signs: yes Common normals: no apparent distress Respiratory Common normals: normal respiratory effort and clear to auscultation bilaterally Cardio Common normals: regular rate and regular rhythm GI Common normals: Normal to inspection, nondistended, normoactive bowel sounds present Extremity Common normals: no clubbing, cyanosis or edema and no calf tenderness Results Labs Labs: Short CBC 02/28/24 Range/Units 06:16 WBC 4.2 (4.0-11.0) 10^3/uL Hgb 9.5 L (12.0-16.0) g/dL Hct 29.5 L (36.0-48.0) % Plt Count 184 (150-450) 10^3/uL BMP 02/28/24 06:16 Sodium 141 Potassium 3.3 L Chloride 110 H Carbon Dioxide 17.0 L BUN <1.0 L Creatinine 0.36 L Glucose 77 Calcium 7.6 L Liver Function 02/28/24 Range/Units 06:16 Total Bilirubin 0.6 (0.2-1.0) mg/dL AST 26 (15-37) U/L ALT 31 (14-59) U/L Alkaline Phosphatase 98 (46-116) U/L Albumin 1.8 L (3.4-5.0) g/dL OB - PN: A/P Assessment and Plan (1) Intrauterine : (2) Viral gastroenteritis: (3) Nausea and vomiting during : (4) Fever and chills: (5) Fatigue: Plan pt improving, desires discharge once tolerating food, rx called in, precautions given, awaiting ultrasound Time Spent with Patient Time: Total time spent is greater than 50% in coordination of care (as documented) at patient's floor/unit and/or counseling patient: Total time spent with greater than 50% in coordination of care (as documented) at patient's floor/unit and/or counseling patient: less than 15 minutes
--- NOTE | 2024-02-28 09:31 | PC.NURSE ---
assessed, lungs clear throughout, BS hyperactive. temp 97.4, pt states feeling much better still has occ cough and sinus like symptoms. Monitor applied briefly prior to pt prior to US arriving. US completed and pt given breakfast
[2024-02-28] MEDS: ACETAMINOPHEN 500 MG TABLET PO ×2 (11:00→11:03)
--- NOTE | 2024-02-28 11:16 | PC.NURSE ---
medicated with tylenol for pressure with coughing and cough medication
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
--- NOTE | 2024-02-28 12:08 | PC.NURSE ---
brachial PICC line removed easily with tip intact, pressure dsg applied and instructed pt not to remove for 24 hours. viewed site 10 minutes later, no bleeding noted, reviewed dc instructions and pt discharged
[2024-02-29 11:08] LABS: Bile Acids 1.8 umol/L (0.0-10.0)
== END 2024-02-28 12:05 | disposition home or self-care (01) ==
PROVIDERS: Admitting Provider Obstetrics & Gynecology; Visit Provider Obstetrics & Gynecology
DX: O98.513 Other viral diseases complicating pregnancy, third trimester (principal); O21.2 Late vomiting of pregnancy; Z3A.31 31 weeks gestation of pregnancy; A08.4 Viral intestinal infection, unspecified; O26.893 Other specified pregnancy related conditions, third trimester; R50.9 Fever, unspecified; K21.9 Gastro-esophageal reflux disease without esophagitis; Z79.899 Other long term (current) drug therapy
CPT/HCPCS: 36415; 36569; 59025; 76816; 76818; 80053; 81001; 82150; 82239; 82565; 83690; 85025; 87502; 87804; 96361; 96365; 96375; 96376; C1887; G0378; G0379; J0690; J2405; J2550; J2765

== ENCOUNTER 2024-03-21 13:34 | Observation (INO) | payer OTHER, SELFPAY ==
[2024-03-21 13:35] VITALS: BP 106/83; PULSE 88; TEMP 36.7; O2SAT 100; BMI 28.3
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
[2024-03-21 14:41] VITALS: BP 113/67; PULSE 91
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
[2024-03-21 17:27] VITALS: BP 115/72; PULSE 87
[2024-03-21 20:59] VITALS: BP 119/72; PULSE 86
== END 2024-03-21 21:15 | disposition home or self-care (01) ==
LOC: ER 14:21 → FBC 14:26
PROVIDERS: Admitting Provider Obstetrics & Gynecology; Emergency Provider Emergency Medicine; Visit Provider Obstetrics & Gynecology
DX: O26.893 Other specified pregnancy related conditions, third trimester (principal); R10.10 Upper abdominal pain, unspecified; O9A.213 Injury, poisoning and certain other consequences of external causes complicating pregnancy, third trimester; S60.221A Contusion of right hand, initial encounter; Z3A.35 35 weeks gestation of pregnancy; V49.49XA Driver injured in collision with other motor vehicles in traffic accident, initial encounter
CPT/HCPCS: 73130; 76815; 76818; 99285; G0378

== ENCOUNTER 2024-03-28 19:01 | Outpatient (OUT) | payer MEDICAID, SELFPAY ==
--- OUTSIDE RECORDS SUMMARY | 2024-03-28 19:15 | XMS_ITS | CCD ---
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 your he (more content not included)... Normal [facility] Family Medicine Office/Clini c Noteon 09-16-2023 Family [...] follow-up appointment with her Dr. Nahed Stewart, pharmacist technician tomorrow, during which her pharmacist technician has agreed to maintain her current medication [...] advised to maintain close follow-up with the pharmacist technician. 2. (Z34.90: Encounter for supervision of normal [...] with voice recognition artificial intelligence software, specifically Bouf, phorus and or Real Savvy. Substitutions may have occurred due to the inherent limitations of voice recognition and artificial intelligence software. ATTESTATION: This note has been generated by [employer] and edited by Brooke Carcamo, [employer] Ref[employer] Operator. Follow-up With When Contact Information Kj PRATT, Pari Mendoza In 3 months [address] [place] [phone] Additional Instructions: Patient Education Major Depressive Disorder, [...] and Father. Depression: Mother and Father. Normal [facility] Comment on above: Result Comment: Elec tronically Signed By: Pari Underwood PA-C\.br\Date and Time Signed: 09/16/23 12:42 EDT\.br\Electronically Co-Signed By: Jessica Cagle\.br\Date and Time Co-Signed: 09/13/23 12:51 EDT SEROLOGYOrdered By: Rossi Calloway on 09-16-2023 HCG.beta subunit (U) [Moles/Vol] Positive (09/16/23 8:46 AM) Normal [facility] Man Sero U BetaHcg Qualon 09-16-2023 HCG.beta subunit (U) [Moles/Vol] Positive Normal [facility] Comment on above: Performed By: #### 2 [id number] #### [facility] [address] [place] [address] UA with Cult Rflxon 09-16-19 24 Bilirubin Ql (U) Negative Normal Negative [facility] Comment on above: Performed By: #### 4 [id number] #### [facility] [address] [place] [address] Clarity (U) Clear Normal Clear [facility] Comment on above: Performed By: #### 4 [id number] #### [facility] [address] [place] [address] Color (U) Light-Yellow Normal Yellow [facility] Comment on above: Result Comment: Micr oscopic readings are only performed on those samples that meet specific criteria set forth by [facility]. Performed By: #### 4 [id number] #### [facility] [address] [place] [address] Glucose Ql (U) Negative Normal Negative [facility] Comment on above: Performed By: #### 4 [id number] #### [facility] [address] [place] [address] Hemoglobin Auto test strip (U) [Mass/Vol] Negative Normal Negative [facility] Comment on above: Performed By: #### 4 [id number] #### [facility] [address] [place] [address] Ketones Auto test strip Ql (U) Negative Normal Negative [facility] Comment on above: Performed By: #### 4 [id number] #### [facility] [address] [place] [address] Leukocyte esterase Auto test strip Ql (U) Negative Normal Negative [facility] Comment on above: Performed By: #### 4 [id number] #### [facility] [address] [place] [address] Nitrite Auto test strip Ql (U) Negative Normal Negative [facility] Comment on above: Performed By: #### 4 [id number] #### [facility] [address] [place] [address] pH (U) 6.5 [pH] Invalid Interpretation Code 5.0-9.0 [facility] Comment on above: Performed By: #### 4 [id number] #### [facility] [address] [place] [address] Protein Ql (U) Negative Normal Negative [facility] Comment on above: Performed By: #### 4 [id number] #### [facility] [address] [place] [address] Specific gravity (U) [Rel density] 1.017 Invalid Interpretation Code 1.005-1.030 [facility] Comment on above: Performed By: #### 4 [id number] #### [facility] [address] [place] [address] Urobilinogen (U) [Mass/Vol] Negative Normal Negative [facility] Comment on above: Performed By: #### 4 [id number] #### [facility] [address] [place] [address] Type of Urine collection method Clean Catch Normal [facility] Comment on above: Performed By: #### 4 [id number] #### [facility] [address] [place] [address] URINALYSISOrdered By: SYSTEM SYSTEM on 09-16-2023 Bilirubin Ql (U) Negative Normal Negativemg/dL [facility] UA Auto SS Clarity (U) Clear (09/16/23 8:46 AM) Normal Clear [facility] UA Auto SS Color (U) Light-Yellow 1 (09/16/23 8:46 AM) Normal Yellow [facility] UA Auto SS Comment on above: Interpretive Data: M icroscopic readings are only performed on those samples that meet specific criteria set forth by [facility]. Glucose Ql (U) Negative Normal Negativemg/dL [facility] UA Auto SS Hemoglobin Auto test strip (U) [Mass/Vol] Negative Normal Negativemg/dL [facility] UA Aut o SS Ketones Auto test strip Ql (U) Negative Normal Negativemg/dL [facility] UA Auto SS Leukocyte esterase Auto test [...] AM) Invalid Interpretation Code 1.005 - 1.030 [facility] UA Auto SS Urobilinogen (U) [Mass/Vol] Negative Normal Negativemg/dL [facility] UA Auto SS URINALYSISOrdered By: Dulce Lockett on 09-16-2023 UA Spec Desc Clean Catch (09/16/23 8:46 AM) Normal [facility] UA Auto SS Ambulatory Visit Summaryon 0 [...] Schedule the Following Appointments Follow Up with Kj PRATT, Pari Mendoza When: In 3 months Where: [address] [place] [phone] Medications What How Much When Instructions New aripiprazole (aripiprazole 5 mg Tab) 1 Tablets By Mouth Every day Refills: 2 Pickup at [id number] Unchanged lactobacillus acidophilus (Acidophilus Probiotic Blend) Pharmacy Information [id number]: [address] [place], [place] [phone] Allergies No Known Medication Allergies Problems Ongoing - Any problem that you are currently receiving treatment for. BMI 23.0-23.9, adult Patient Survey You may receive a survey via text or e-mail asking about your office visit. Please share your experience with us by completing your survey. We appreciate your feedback and thank you for choosing us for your care. Normal [facility] ED Note-Physicianon 08-31-19 ED Note-Physician [id number] #1.00TIFF Normal [facility] CBC with Diffon 08-30-2023 Abs. Basophil 0.04 k/uL Normal 0.00-0.20 [facility] Comment on above: Performed By: #### C DP #### [facility] [address] [place] [address] Billiard Table Mechanic: Gio Peña MD Abs.Imm.Granulocyte 0.02 k/uL Normal 0.00-0.30 [facility] Comment on above: Performed By: #### C DP #### [facility] [address] [place] [address] Billiard Table Mechanic: Gio Peña MD Abs.Neutrophil (Seg) 4.62 k/uL Normal 2.5-7.0 [facility] Comment on above: Performed By: #### C DP #### [facility] [address] [place] [id number] Billiard Table Mechanic: Gio Peña MD Basophils/100 WBC (Bld) 1 % Normal 0-2 [facility] Comment on above: Performed By: #### C DP #### [facility] [address] [place] [address] Billiard Table Mechanic: Gio Peña MD Eosinophils (Bld) [#/Vol] 0.09 10*3/uL Normal 0.00-0.40 [facility] Comment on above: Performed By: #### C DP #### [facility] [address] [place] [address] Billiard Table Mechanic: Gio Peña MD Eosinophils/100 WBC (Bld) 1 % Normal 0-5 [facility] Comment on above: Performed By: #### C DP #### [facility] [address] [place], [place] [id number] Billiard Table Mechanic: Gio Peña MD Erythrocyte distribution width (RBC) [Ratio] 12.8 % Normal 12.1-15.2 [facility] Comment on above: Performed By: #### C DP #### [facility] [address] [place] [address] Billiard Table Mechanic: Gio Peña MD Hematocrit (Bld) [Volume fraction] 38.0 % Normal 36.0-46.0 [facility] Comment on above: Performed By: #### C DP #### [facility] [address] [place] [address] Billiard Table Mechanic: Gio Peña MD Hemoglobin (Bld) [Mass/Vol] 12.5 g/dL Normal 12.0-16.0 [facility] Comment on above: Performed By: #### C DP #### [facility] [address] [place] [address] Billiard Table Mechanic: Gio Peña MD Immature granulocytes/100 WBC (Bld) 0 % Normal 0-5 [facility] Comment on above: Performed By: #### C DP #### [facility] [address] [place] [address] Billiard Table Mechanic: Gio Peña MD Lymphocytes (Bld) [#/Vol] 1.87 10*3/uL Normal 1.00-4.80 [facility] Comment on above: Performed By: #### C DP #### [facility] [address] [place] [id number] Billiard Table Mechanic: Gio Peña MD Lymphocytes/100 WBC (Bld) 26 % Normal 15-40 [facility] Comment on above: Performed By: #### C DP #### [facility] [address] [place] [address] Billiard Table Mechanic: Gio Peña MD MCH (RBC) [Entitic mass] 28.2 pg Normal 26.0-34.0 [facility] Comment on above: Performed By: #### C DP #### [facility] [address] [place] [address] Billiard Table Mechanic: Gio Peña MD MCHC (RBC) [Mass/Vol] 32.9 g/dL Normal 31.0-37.0 [facility] Comment on above: Performed By: #### C DP #### [facility] [address] [place] [address] Billiard Table Mechanic: Gio Peña MD MCV (RBC) [Entitic vol] 85.8 fL Normal 80.0-100.0 [facility] Comment on above: Performed By: #### C DP #### [facility] [address] [place] [id number] Billiard Table Mechanic: Gio Peña MD Monocytes (Bld) [#/Vol] 0.55 10*3/uL Normal 0.00-1.00 [facility] Comment on above: Performed By: #### C DP #### [facility] [address] [place] [id number] Billiard Table Mechanic: Gio Peña MD Monocytes/100 WBC (Bld) 8 % Normal 4-8 [facility] Comment on above: Performed By: #### C DP #### [facility] [address] [place], [place] [id number] Billiard Table Mechanic: Gio Peña MD Neutrophil (Seg) 64 % Normal 47-75 [facility] Comment on above: Performed By: #### C DP #### [facility] [address] [place], [place] [id number] Billiard Table Mechanic: Gio Peña MD Platelet mean volume (Bld) [Entitic vol] 9.7 fL Normal 6.0-12.0 [facility] Comment on above: Performed By: #### C DP #### [facility] [address] [place] [address] Billiard Table Mechanic: Gio Peña MD Platelets (Bld) [#/Vol] 265 10*3/uL Normal 140-450 [facility] Comment on above: Performed By: #### C DP #### [facility] [address] [place], [place] [id number] Billiard Table Mechanic: Gio Peña MD RBC (Bld) [#/Vol] 4.43 10*6/uL Normal 4.00-5.20 [facility] Comment on above: Performed By: #### C DP #### [facility] [address] [place], [place] [id number] (789) Billiard Table Mechanic: Gio Peña MD WBC (Bld) [#/Vol] 7.2 10*3/uL Normal 4.5-13.5 [facility] Comment on above: Performed By: #### C DP #### [facility] [address] [place], [place] [id number] Billiard Table Mechanic: Gio Peña MD HCG, Quanton 08-30-2023 HCG, Quant 62565.0 mIU/mL High <5 [facility] Comment on above: Result Comment: Non-preg premeno <=5 Postmeno <=8 Male <=3 If HCG results do not concur with clinical observations, additional testing to confirm results is recommended. Performed By: #### B HCG #### [facility] [address] [place] [address] Billiard Table Mechanic: Gio Peña MD Type + Screenon 08-30-2023 Type + Screen Sample Expiration 09/02/2023,2359 ABO/Rh(D) O POSITIVE Antibody Screen NEGATIVE Normal [facility] Comment on above: Performed By: #### T YS #### [facility] [address] [place] [address] Billiard Table Mechanic: Gio Peña MD Family Medicine Office/Clini c [...] side effects, signs (more content not included)... [facility] Comment on above: Result Comment: Elec tronically Signed By: Pari Underwood PA-C\.br\Date and Time Signed: 08/19/23 20:54 EDT\.br\Electronically Co-Signed By: Julia Rodriguez\.br\Date and Time Co-Signed: 08/13/23 17:18 EDT [employer] 08-16-2023 Forms [id number]# 1.00TIFF [facility] Ambulatory Visit Summaryon 0 08-13-2023 [...] AM EDT With: Pari Underwood PA-C Where: [facility] [place] Normal [facility] Patient Educationon 08-13-19 Patient Education Mental and Behavioral Health Managing [...] or salt (sodium). General instructions ? Take qxbt-voa-ptovwdp and prescription medicines only as told by [...] [facility] (more content not included)... Normal [facility] CHLAMYDIA/GCon 08-04-2023 CHLAMYDIA TRACH Not detected Normal NOT DETECTED [facility] Comment on above: Performed By: #### C TNG #### [place] [address] N.GONORRHOEAE Not detected Normal NOT DETECTED [facility] Comment on above: Result Comment: TEST ING PERFORMED BY PCR Testing performed at [place] [address] Performed By: #### C TNG #### [place] [address] CHLAMYDIA/GONOCOCCUS, NAAon 08-04-2023 CHLAMYDIA TRACHOMATIS Not detected NOT DETECTED [facility] NEISSERIA GONORRHOEAE Not detected NOT DETECTED [facility] Comment on above: TESTING PERFORMED BY PCR Testing performed at [address] TRICH VAGon 08-04-2023 TRICH VAG Not detected Normal NOT DETECTED [facility] Comment on above: Result Comment: TEST ING PERFORMED BY PCR Testing performed at [place] [address] Performed By: #### A TV #### [place] [address] TRICHOMONAS VAGINALIS, NAAon 08-04-2023 T. vaginalis rRNA TELMA+probe Ql (Unsp spec) Not detected NOT DETECTED [facility] Comment on above: TESTING PERFORMED BY PCR Testing performed at [address] CHLAMYDIA/GCon 04-16-2023 CHLAMYDIA TRACH Not detected Normal NOT DETECTED [facility] Comment on above: Performed By: #### C TNG #### [place] [address] N.GONORRHOEAE Not detected Normal NOT DETECTED [facility] Comment on above: Result Comment: TEST ING PERFORMED BY PCR Testing performed at [place] [address] Performed By: #### C TNG #### [place] [address] CHLAMYDIA/GONOCOCCUS, NAAon 04-16-2023 CHLAMYDIA TRACHOMATIS Not detected NOT DETECTED [facility] NEISSERIA GONORRHOEAE Not detected NOT DETECTED [facility] [facility] Comment on above: TESTING PERFORMED BY PCR Testing performed at [address] TRICH VAGon 04-16-2023 TRICH VAG Not detected Normal NOT DETECTED [facility] Comment on above: Result Comment: TEST ING PERFORMED BY PCR Testing performed at [place] [address] Performed By: #### C TNG #### [place] [address] TRICHOMONAS VAGINALIS, NAAon 04-16-2023 T. vaginalis rRNA TELMA+probe Ql (Unsp spec) Not detected NOT DETECTED [facility] Comment on above: TESTING PERFORMED BY PCR Testing performed at [address] XR RIBS WITH CHEST, RIGHTon 10-24-2022 [...] fractures identified. IMPRESSION: No acute findings. Normal [facility] CHLAMYDIA/GCon 10-23-2022 CHLAMYDIA TRACH Not detected Normal NOT DETECTED [facility] Comment on above: Performed By: #### C TNG #### [place] [address] N.GONORRHOEAE Not detected Normal NOT DETECTED [facility] Comment on above: Result Comment: TEST ING PERFORMED BY PCR Testing performed at [place] [address] Performed By: #### C TNG #### [place] [address] CHLAMYDIA/GONOCOCCUS, NAAon 10-23-2022 CHLAMYDIA TRACHOMATIS Not detected NOT DETECTED [facility] NEISSERIA GONORRHOEAE Not detected NOT DETECTED [facility] Comment on above: TESTING PERFORMED BY PCR Testing performed at [address] TRICH VAGon 10-23-2022 TRICH VAG Not detected Normal NOT DETECTED [facility] Comment on above: Result Comment: TEST ING PERFORMED BY PCR Testing performed at [place] [address] Performed By: #### A TV #### [place] [address] TRICHOMONAS VAGINALIS, NAAon 10-23-2022 T. vaginalis rRNA TELMA+probe Ql (Unsp spec) Not detected NOT DETECTED [facility] Comment on above: TESTING PERFORMED BY PCR Testing performed at [address] CBC, EDIF, PLATELETon 2021 ABSOLUTE BASOPHIL COUNT 0.0 10*3/uL 0.0 - 0.2 10*3/uL [facility] Comment on above: Testing performed at [place] [address] Basophils/100 WBC (Bld) 0.5 % 0.0 - 2.0 % [facility] Differential cell count method Nom (Bld) AUTO DIFF % [facility] Eosinophils (Bld) [#/Vol] 0.20 10*3/uL 0.0 - 0.7 10*3/uL [facility] Eosinophils/100 WBC (Bld) 1.9 % 0.0 - 11.0 % [facility] Erythrocyte distribution width (RBC) [Ratio] 13.1 % 11.5 - 14.5 % [facility] Hematocrit (Bld) [Volume fraction] 32.9 % Low 36.0 - 48.0 % [facility] Hemoglobin (Bld) [Mass/Vol] 11.5 g/dL Low [facility] Interpretation and review of laboratory results Abnormal [facility] Lymphocytes (Bld) [#/Vol] 1.50 10*3/uL 1.2 - 3.4 10*3/uL [facility] Lymphocytes/100 WBC (Bld) 17.3 % Low 20.0 - 55.0 % [facility] MCH (RBC) [Entitic mass] 31.1 pg 26.0 - 35.0 PG [facility] MCHC (RBC) [Mass/Vol] 35.0 g/dL [facility] MCV (RBC) [Entitic vol] 89.0 fL [facility] Monocytes (Bld) [#/Vol] 0.8 10*3/uL High 0.0 - 0.7 10*3/uL [facility] Monocytes/100 WBC (Bld) 8.6 % 0.0 - 10.0 % [facility] Neutrophils (Bld) [#/Vol] 6.3 10*3/uL 1.4 - 6.5 10*3/uL [facility] Neutrophils/100 WBC (Bld) 71.7 % 37.0 - 75.0 % [facility] Platelet mean volume (Bld) [Entitic vol] 8.4 fL [facility] Platelets (Bld) [#/Vol] 226 10*3/uL 130.0 - 400.0 10*3/uL [facility] RBC (Bld) [#/Vol] 3.69 10*6/uL Low 4.0 - 5.4 10*6/uL [facility] WBC (Bld) [#/Vol] 8.8 10*3/uL 3.6 - 11.0 10*3/uL [facility] GLUCOSE POST LOADINGon 06-02 Glucose 1 Hr post 50 g glucose PO [Mass/Vol] 93 mg/dL [facility] Comment on above: Testing performed at [address] COLPOSCOPYon 03-13-2021 Doyle Amaro MD 03/13/2021 11:15 [...] as needed for mild to moderate pain. [facility] Narrative [Interpretat ion] Study observation general USon 02-06-2021 : 1. Single of 11 weeks and 5 days. 2. heart rate of 168 bpm. 3. US SEBASTIAN 08/23/2021, which is inconsistent with SEBASTIAN by LMP and should be changed. [facility] REFERRING PHYSICIAN: Dr. Amaro TECHNOLOGIST: Ashley Acosta PROCEDURE DATE : 02/06/2021 INDICATIONS: Early gestational, dating LMP 11/09/2020, SEBASTIAN 08/16/2021 PROCEDURE DETAILS A single was noted within the uterus. heart rate of 168 bpm. The CRL measures 5.03 cm , 11 weeks 5 days. FINAL [facility] Radiology Study observation (narrative) [facility] ABO/RH(D) TYPINGon 1 ABO and Rh group Nom (Bld ) Positive [facility] ABO and Rh group Nom (Bld ) Testing performed at [place], [place] [address] [facility] ANTIBODY SCREENon 01-14-2021 Blood group antibody screen Ql Negative [facility] EXPIRATION DATE 01/17/2021,2359 [facility] [employer] [facility] EXPIRATION DATE Testing performed at [place], [place] [address] [facility] CBC, EDIF, PLATELETon 2020 ABSOLUTE BASOPHIL COUNT 0.0 10*3/uL 0.0 - 0.2 10*3/uL [facility] Comment on above: Testing performed at [facility] [place], [place] [address] Basophils/100 WBC (Bld) 0.6 % 0.0 - 2.0 % [facility] Differential cell count method Nom (Bld) AUTO DIFF % [facility] Eosinophils (Bld) [#/Vol] 0.10 10*3/uL 0.0 - 0.7 10*3/uL [facility] Eosinophils/100 WBC (Bld) 1.3 % 0.0 - 11.0 % [facility] Erythrocyte distribution width (RBC) [Ratio] 13.5 % 11.5 - 14.5 % [facility] Hematocrit (Bld) [Volume fraction] 35.9 % Low 36.0 - 48.0 % [facility] Hemoglobin (Bld) [Mass/Vol] 12.2 g/dL [facility] Interpretation and review of laboratory results Abnormal [facility] Lymphocytes (Bld) [#/Vol] 2.40 10*3/uL 1.2 - 3.4 10*3/uL [facility] Lymphocytes/100 WBC (Bld) 34.3 % 20.0 - 55.0 % [facility] MCH (RBC) [Entitic mass] 28.7 pg 26.0 - 35.0 PG [facility] MCHC (RBC) [Mass/Vol] 33.9 g/dL [facility] MCV (RBC) [Entitic vol] 84.7 fL [facility] Monocytes (Bld) [#/Vol] 0.7 10*3/uL 0.0 - 0.7 10*3/uL [facility] Monocytes/100 WBC (Bld) 9.7 % 0.0 - 10.0 % [facility] Neutrophils (Bld) [#/Vol] 3.8 10*3/uL 1.4 - 6.5 10*3/uL [facility] Neutrophils/100 WBC (Bld) 54.1 % 37.0 - 75.0 % [facility] Platelet mean volume (Bld) [Entitic vol] 9.3 fL [facility] Platelets (Bld) [#/Vol] 289 10*3/uL 130.0 - 400.0 10*3/uL [facility] RBC (Bld) [#/Vol] 4.23 10*6/uL 4.0 - 5.4 10*6/uL [facility] WBC (Bld) [#/Vol] 7.1 10*3/uL 3.6 - 11.0 10*3/uL [facility] HIV 1+2 Ab+HIV1 p24 Ag IA Ql on 01-14-2021 HIV 1+2 Ab IA Ql Non-Reactive NONREACTIVE [facility] Comment on above: Testing performed at [place] [id number] [facility] RAPID TOX SCREEN WITH RELEX TO DRUGMCon 01-14-2021 Amphetamine (U) [Mass/Vol] Negative NEGATIVE NG/ML [facility] Comment on above: <500 ng/ml CUTOFF Barbiturates Screen Ql (U) Negative NEGATIVE NG/ML [facility] Comment on above: <200 ng/ml CUTOFF Benzodiazepines Ql (U) Negative NEGATIVE NG/ML [facility] Comment on above: <150 ng/ml CUTOFF Benzoylecgonine Ql (U) Negative NEGATIVE NG/ML [facility] Comment on above: <150 ng/ml CUTOFF Buprenorphine Ql (U) Negative NEGATIVE NG/ML [facility] Comment on above: <10 ng/ml CUTOFF Testing performed at [place] [address] Cannabinoids Screen Ql (U) Positive Abnormal NEGATIVE NG/ML [facility] Comment on above: <50 ng/ml CUTOFF *Unconfirmed Screening Result* Unconfirmed screening results are to be used only for medical treatment purposes. Interpretation and review of laboratory results Abnormal [facility] Methadone Screen Ql (U) Negative NEGATIVE NG/ML [facility] Comment on above: <200 ng/ml CUTOFF Methamphetamine (U) [Mass/Vol] Negative NEGATIVE NG/ML [facility] Comment on above: <500 ng/ml CUTOFF Opiates Screen Ql (U) Negative NEGATIVE NG/ML [facility] Comment on above: <100 ng/ml CUTOFF oxyCODONE Ql (U) Negative NEGATIVE NG/ML [facility] Comment on above: <100 ng/ml CUTOFF Phencyclidine Screen method >25 ng/mL Ql (U) Negative NEGATIVE NG/ML [facility] Comment on above: <25 ng/ml CUTOFF Propoxyphene+Norpropo xyphene Screen Ql (U) Negative NEGATIVE NG/ML [facility] Comment on above: <300 ng/ml CUTOFF Tricyclic antidepressants Screen Ql (U) Negative NEGATIVE NG/ML [facility] Comment on above: <300 ng/ml CUTOFF [facility] REQUEST FOR MISC LAB SENDOUT on 01-14-2021 Miscellaneous Test 1 SPECIMEN SENT TO REFERENCE LAB FOR TESTING [facility] Comment on above: [id number] CANNABINOID Testing performed at [place], [place] [address] [facility] Chlamydia/GC,DNA Ampon 08-09 Chlamydia Probe Negative Normal [facility] Comment on above: Result Comment: CHLA [...] target. Performed By: #### S WCGP #### [employer] [address] [place] [address] Billiard Table Mechanic: Geovani Cordon MD Gonorrhea Probe Negative Normal [facility] Comment on above: Result Comment: NEIS [...] target. Performed By: #### S WCGP #### [employer] [facility] [place] [address] Billiard Table Mechanic: Geovani Cordon MD Herpes 1+2 Molecularon 08-09 HSV-1, NAAT Negative Normal [facility] Comment on above: Result Comment: HSV- 1 DNA not detected by nucleic acid amplification Performed By: #### H BS, HSVDNA, TREP, AHCV, HIVCMB #### [employer] [address] [place] [address] Billiard Table Mechanic: Geovani Cordon MD HSV-2, NAAT Negative Normal NEG [facility] Comment on above: Result Comment: HSV- 2 DNA not detected by nucleic acid amplification Performed By: #### H BS, HSVDNA, TREP, AHCV, HIVCMB #### [facility] [employer] [facility] [place] [address] Billiard Table Mechanic: Geovani Cordon MD Vaginitis DNA Probeon 2020 [...] symptoms of vaginitis/vaginosis. Report Status FINAL 08/09/2020 Normal [facility] Comment on above: Performed By: #### V AGDNA #### [address] [address] Billiard Table Mechanic: Geovani Cordon MD [facility] [address] [place] [address] [place] [address] Billiard Table Mechanic: Gio Peña MD HIV Ag/Abon 08-08-2020 HIV Ag/Ab Non-Reactive Normal [facility] Comment on above: Result Comment: No l aboratory evidence of HIV infection. If acute HIV infection is suspected, consider testing for HIV-1 RNA. Performed By: #### H BS, HSVDNA, TREP, AHCV, HIVCMB #### [facility] [employer] [facility] [place] [address] Billiard Table Mechanic: Geovani Cordon MD Hep B Surf Agon 08-08-2020 Hep B Surf Ag Non-Reactive Normal [facility] Comment on above: Performed By: #### H BS, HSVDNA, TREP, AHCV, HIVCMB #### [facility] [employer] [facility] [place] [address] Billiard Table Mechanic: Geovani Cordon MD Hep C Abon 08-08-2020 Hep C Ab Non-Reactive Normal NR [facility] Comment on above: Result Comment: The hepatitis [...] H BS, HSVDNA, TREP, AHCV, HIVCMB #### [employer] [facility] [place] [address] Billiard Table Mechanic: Geovani Cordon MD Herpes 1+2 Molecularon 08-08 Source: NOT REPORTED Normal [facility] Comment on above: Performed By: #### H BS, HSVDNA, TREP, AHCV, HIVCMB #### [facility] [employer] [address] [place] [address] Billiard Table Mechanic: Geovani Cordon MD T.pallidum Ab Screenon 08-08 T.pallidum Ab Screen Non-Reactive Normal NR [facility] Comment on above: Result Comment: T. pallidum antibodies are not detected. There is no serological evidence of infection with T. pallidum (early primary syphilis cannot be excluded). Retest in 2-4 weeks if syphilis is clinically suspect. Performed By: #### H BS, HSVDNA, TREP, AHCV, HIVCMB #### [employer] [facility] [place], [place] [id number] Billiard Table Mechanic: Geovani Cordon MD CBC W/DIFFon 09-29-2019 ABS BASOPHILS 0.1 10*3/uL Normal 0.0-0.2 [facility] Comment on above: Order Comment: No: D o not add to previous draw Performed By: #### 5 0103 #### [facility] [address] [facility] [place] [address], [facility] ABS IMM GRANS 0.0 10*3/uL Normal 0.0-0.2 [facility] Comment on above: Order Comment: No: D o not add to previous draw Performed By: #### 5 0103 #### [facility] [address] [place] [address], [facility] ABS NEUTROPHILS 2.1 10*3/uL Normal 1.6-7.6 [facility] Comment on above: Order Comment: No: D o not add to previous draw Performed By: #### 5 0103 #### [facility] [address] [place] [address], [facility] Basophils/100 WBC (Bld) 1.2 % High 0.0-1.0 [facility] Comment on above: Order Comment: No: D o not add to previous draw Performed By: #### 5 0103 #### [facility] [address] [place] [address], [facility] Eosinophils (Bld) [#/Vol] 0.3 10*3/uL Normal 0.0-0.5 [facility] Comment on above: Order Comment: No: D o not add to previous draw Performed By: #### 5 0103 #### [facility] [address] [place] [address], [facility] Eosinophils/100 WBC (Bld) 4.5 % Normal 0.0-6.0 [facility] Comment on above: Order Comment: No: D o not add to previous draw Performed By: #### 5 0103 #### [facility] [address] [place] [id number], [facility] Erythrocyte distribution width (RBC) [Ratio] 14.0 % Normal 11.5-15.0 [facility] Comment on above: Order Comment: No: D o not add to previous draw Performed By: #### 5 0103 #### [facility] [address] [place] [address], [facility] Hematocrit (Bld) [Volume fraction] 39.7 % Normal 36.0-45.0 [facility] Comment on above: Order Comment: No: D o not add to previous draw Performed By: #### 5 0103 #### [facility] [address] [place] [address], [facility] Hemoglobin (Bld) [Mass/Vol] 12.9 g/dL Normal 12.0-15.0 [facility] Comment on above: Order Comment: No: D o not add to previous draw Performed By: #### 5 0103 #### [facility] [address] [place] [address], [facility] IMMATURE GRANS 0.3 % Normal 0.0-1.0 [facility] Comment on above: Order Comment: No: D o not add to previous draw Performed By: #### 5 0103 #### [facility] [address] [place] [address], [facility] Lymphocytes (Bld) [#/Vol] 3.1 10*3/uL Normal 1.2-4.0 [facility] Comment on above: Order Comment: No: D o not add to previous draw Performed By: #### 5 0103 #### [facility] [address] [place] [address], [facility] Lymphocytes/100 WBC (Bld) 51.7 % High 20.0-45.0 [facility] Comment on above: Order Comment: No: D o not add to previous draw Performed By: #### 5 0103 #### [facility] [address] [place] [address], [facility] MCH (RBC) [Entitic mass] 27.7 pg Normal 27.0-33.0 [facility] Comment on above: Order Comment: No: D o not add to previous draw Performed By: #### 5 0103 #### [facility] [address] [facility] [place] [address], [facility] MCHC (RBC) [Mass/Vol] 32.5 g/dL Normal 32.0-35.0 [facility] Comment on above: Order Comment: No: D o not add to previous draw Performed By: #### 5 0103 #### [facility] [address] [place] [address], [facility] MCV (RBC) [Entitic vol] 85.2 fL Normal 82.0-98.0 [facility] Comment on above: Order Comment: No: D o not add to previous draw Performed By: #### 5 0103 #### [facility] [address] [place] [address], [facility] Monocytes (Bld) [#/Vol] 0.4 10*3/uL Normal 0.1-1.0 [facility] Comment on above: Order Comment: No: D o not add to previous draw Performed By: #### 5 0103 #### [facility] [address] [place] [address], [facility] MONOS 7.2 % Normal 5.0-12.0 [facility] Comment on above: Order Comment: No: D o not add to previous draw Performed By: #### 5 0103 #### [facility] [address] [facility] [place] [address], [facility] Neutrophils/100 WBC (Bld) 35.1 % Low 40.0-72.0 [facility] Comment on above: Order Comment: No: D o not add to previous draw Performed By: #### 5 0103 #### [facility] [address] [facility] [place] [address], [facility] Nucleated RBC/100 WBC (Bld) [Ratio] 0 % Normal 0-0 [facility] Comment on above: Order Comment: No: D o not add to previous draw Performed By: #### 5 0103 #### [facility] [address] [facility] [place] [address], [facility] PLAT CNT 237 10*3/uL Normal 150-400 [facility] Comment on above: Order Comment: No: D o not add to previous draw Performed By: #### 5 0103 #### [facility] [address] [place] [address], [facility] RBC (Bld) [#/Vol] 4.66 10*6/uL Normal 3.80-5.00 [facility] Comment on above: Order Comment: No: D o not add to previous draw Performed By: #### 5 0103 #### [facility] [address] [place] [address], [facility] WBC (Bld) [#/Vol] 5.96 10*3/uL Normal 4.00-10.60 [facility] Comment on above: Order Comment: No: D o not add to previous draw Performed By: #### 5 0103 #### [facility] [address] [place] [id number], [facility] COMP METABOLIC PANELon 09-28 Albumin [Mass/Vol] 4.5 g/dL Normal 3.5-5.7 [facility] Comment on above: Order Comment: No: D o not add to previous draw Performed By: #### 4 4396, 09624, 52516, 62747, 12523, 13458 #### [facility] [address] [place] [address], [facility] ALKALINE PHOSPH 59 IU/L Normal 40-460 [facility] Comment on above: Order Comment: No: D o not add to previous draw Performed By: #### 4 4396, 42131, 09288, 85127, 34683, 36568 #### [facility] [address] [place] [address], [facility] ALT [Catalytic activity/Vol] 10 U/L Normal 7-52 [facility] Comment on above: Order Comment: No: D o not add to previous draw Performed By: #### 4 4396, 60287, 88710, 87342, 77515, 46622 #### [facility] [address] [place] [address], [place] AST [Catalytic activity/Vol] 17 U/L Normal 13-39 [facility] Comment on above: Order Comment: No: D o not add to previous draw Performed By: #### 4 4396, 70391, 06985, 46460, 28734, 41273 #### [facility] [address] [place] [address], [place] Bilirubin [Mass/Vol] 0.4 mg/dL Normal 0.3-1.0 [facility] Comment on above: Order Comment: No: D o not add to previous draw Performed By: #### 4 4396, 15194, 18231, 37168, 40908, 57886 #### [facility] [address] [place] [address], [place] Calcium [Mass/Vol] 9.5 mg/dL Normal 8.6-10.3 [facility] Comment on above: Order Comment: No: D o not add to previous draw Performed By: #### 4 4396, 03863, 56527, 39265, 29833, 65853 #### [facility] [address] [place] [address], [place] Chloride [Moles/Vol] 104 mmol/L Normal 98-107 [facility] Comment on above: Order Comment: No: D o not add to previous draw Performed By: #### 4 4396, 31752, 89889, 41263, 91355, 03921 #### [facility] [address] [place] [address], [place] CO2 [Moles/Vol] 28 mmol/L Normal 21-31 [facility] Comment on above: Order Comment: No: D o not add to previous draw Performed By: #### 4 4396, 41355, 17831, 39981, 21077, 88026 #### [facility] [address] [place] [address], [place] Creatinine [Mass/Vol] 0.66 mg/dL Normal 0.60-1.20 [facility] Comment on above: Order Comment: No: D o not add to previous draw Performed By: #### 4 4396, 67172, 09614, 23464, 12682, 95163 #### [facility] [address] [place] [address], [place] GFR/1.73 sq M predicted among blacks MDRD (S/P/Bld) [Vol rate/Area] Calculation not validated for patients under 18 years Abnormal >60 [facility] Comment on above: Order Comment: No: D o not add to previous draw Performed By: #### 4 4396, 67341, 39884, 85257, 47190, 24555 #### [facility] [address] [place] [address], [place] GFR/1.73 sq M predicted among non-blacks MDRD (S/P/Bld) [Vol rate/Area] Calculation not validated for patients under 18 years Abnormal >60 [facility] Comment on above: Order Comment: No: D o not add to previous draw Performed By: #### 4 4396, 75184, 77730, 20149, 36347, 33299 #### [facility] [address] [place] [address], [place] Glucose [Mass/Vol] 139 mg/dL High 70-100 [facility] Comment on above: Order Comment: No: D o not add to previous draw Performed By: #### 4 4396, 07494, 20372, 97223, 13046, 49921 #### [facility] [address] [place] [address], [place] Potassium [Moles/Vol] 3.6 mmol/L Normal 3.5-5.1 [facility] Comment on above: Order Comment: No: D o not add to previous draw Performed By: #### 4 4396, 99500, 13873, 49228, 43948, 92982 #### [facility] [address] [place] [address], [place] Protein [Mass/Vol] 7.2 g/dL Normal 6.0-8.3 [facility] Comment on above: Order Comment: No: D o not add to previous draw Performed By: #### 4 4396, 96242, 37512, 41522, 28405, 59104 #### [facility] [address] [place] [address], [facility] Sodium [Moles/Vol] 139 mmol/L Normal 136-145 [facility] Comment on above: Order Comment: No: D o not add to previous draw Performed By: #### 4 4396, 08880, 99714, 40947, 37137, 70567 #### [facility] [address] [place] [address], [facility] Urea nitrogen [Mass/Vol] 9 mg/dL Normal 7-25 [facility] Comment on above: Order Comment: No: D o not add to previous draw Performed By: #### 4 4396, 17782, 56718, 86135, 49634, 66861 #### [facility] [address] [place] [address], [facility] FREE T3on 09-29-2019 Free T3 [Mass/Vol] 4.2 pg/mL High 2.5-3.9 [facility] Comment on above: Order Comment: No: D o not add to previous draw Performed By: #### 4 4396, 45425, 85534, 01561, 60041, 10198 #### [facility] [address] [place] [address], [place] FREE T4on 09-29-2019 Free T4 [Mass/Vol] 0.82 ng/dL Normal 0.71-1.85 [facility] Comment on above: Order Comment: No: D o not add to previous draw Performed By: #### 4 4396, 38402, 59576, 73095, 28100, 52141 #### [facility] [facility] [address] [place] [address], [place] LIPID PROFILEon 09-29-2019 Cholesterol [Mass/Vol] 153 mg/dL Normal 120-170 [facility] Comment on above: Order Comment: No: D o not add to previous draw Result Comment: CHOL ESTEROL REFERENCE RANGE: 20 YEARS AND OLDER CARDIOVASCULAR RISK Less than 200 mg/dl Low Risk 200 to 239 mg/dl Borderline Risk 240 mg/dl and greater High Risk Performed By: #### [id number], 78714, 50197, 17871, 55436, 98377 #### [facility] [address] [place] [address], [place] Cholesterol in HDL [Mass/Vol] 56 mg/dL Normal 23-92 [facility] Comment on above: Order Comment: No: D o not add to previous draw Result Comment: Slig ht variation in normal range could be due to gender and/or age. HDL CHOLESTEROL REFERENCE RANGE: 20 years and older Cardiovascular Risk > or =60 mg/dL Desirable 40 TO 59 mg/dL Low Risk <40 mg/dL High Risk Performed By: #### [id number], 76106, 92181, 87591, 65635, 19954 #### [facility] [address] [place] [address], [place] Cholesterol in LDL [Mass/Vol] 74 mg/dL Normal 0-130 [facility] Comment on above: Order Comment: No: D o not add to previous draw Result Comment: LDL IS A CALCULATION LDL IS ONLY VALID IF THE TRIG IS LESS THAN 400. Performed By: #### 4 [id number], 68128, 90498, 34301, 46789, 22507 #### [facility] [address] [place] [address], [place] Cholesterol.total/Cho lesterol in HDL [Mass ratio] 2.7 {ratio} Normal 0.0-4.5 [facility] Comment on above: Order Comment: No: D o not add to previous draw Performed By: #### 4 [id number], 79651, 36958, 87676, 90419, 23789 #### [facility] [address] [place] [address], [place] NON-HDL CHOLESTEROL 97 mg/dL Normal [facility] Comment on above: Order Comment: No: D o not add to previous draw Performed By: #### 4 [id number], 23473, 76214, 34894, 10994, 54843 #### [facility] [address] Triglyceride [Mass/Vol] 114 mg/dL Normal 37-148 [facility] Comment on above: Order Comment: No: D o not add to previous draw Result Comment: TRIG LYCERIDE REFERENCE RANGE: 20 YEARS AND OLDER CARDIOVASCULAR RISK LESS THAN 150 mg/dl LOW RISK 150 TO 199 mg/dl BORDERLINE RISK 200 mg/dl AND GREATER HIGH RISK Performed By: #### 4 [id number], 46909, 40597, 26709, 74075, 64600 #### [facility] [address] [place] [address], [facility] VLDL CHOL 23 mg/dL Normal 0-40 [facility] Comment on above: Order Comment: No: D o not add to previous draw Performed By: #### 4 [id number], 40777, 39112, 15665, 23663, 19952 #### [facility] [address] SERUM TESTon 09-28 TEST Negative Normal [facility] Comment on above: Order Comment: No: D o not add to previous draw Performed By: #### [id number] #### [facility] [address] [place] [address], [facility] TSH3on 09-29-2019 TSH 3RD GENERATION 1.24 uIU/mL Normal 0.34-5.60 [facility] Comment on above: Order Comment: No: D o not add to previous draw Performed By: #### 4 [id number], 39861, 17758, 43772, 96820, 07100 #### [facility] [address] [place] [address], [facility] VITAMIN D 25-HYDROXYon 09-28 VITAMIN D 25-OH 42.5 ng/mL Normal 30.0-80.0 [facility] Comment on above: Result Comment: >80. 0 Toxicity possible Performed By: #### 4 [id number], 51702, 02956, 99277, 52698, 31017 #### [facility] [address] Urine Drug Screenon 09-28-19 20 Amphetamine Screen, Ur Negative NEGATIVE [place] Comment on above: (Positive cutoff 500 ng/mL) Barbiturate Screen, Ur Negative NEGATIVE [place] Comment on above: (Positive cutoff 200 ng/mL) Benzodiazepine Screen, Urine Negative NEGATIVE [place] Comment on above: (Positive cutoff 150 ng/mL) Buprenorphine Urine NOT REPORTED NEGATIVE [place] Cannabinoid Scrn, Ur Positive Abnormal NEGATIVE [place] Comment on above: (Positive cutoff 50 ng/mL) Cocaine Metabolite, Urine Negative NEGATIVE [place] Comment on above: (Positive cutoff 150 ng/mL) Interpretation and review of laboratory results Abnormal [place] MDMA, Urine NOT REPORTED NEGATIVE [place] Methadone Screen, Urine Negative NEGATIVE [place] Comment on above: (Positive cutoff 200 ng/mL) Methamphetamine, Urine Negative NEGATIVE [place] Comment on above: (Positive cutoff 500 ng/mL) Opiates, Urine Negative NEGATIVE [place] Comment on above: (Positive cutoff 100 ng/mL) Oxycodone Screen, Ur Negative NEGATIVE [facility], [place] Comment on above: (Positive cutoff 100 ng/mL) Phencyclidine, Urine Negative NEGATIVE [place] Comment on above: (Positive cutoff 25 ng/mL) Propoxyphene, Urine Negative NEGATIVE [place] Comment on above: (Positive cutoff 300 ng/mL) Test Information NOT REPORTED [place] Tricyclic Antidepressants, Urine Negative NEGATIVE [place] Comment on above: (Positive cutoff 300 ng/mL) Drug screen results are to be used for medical purposes only. All positive results are unconfirmed. Testing for employment or legal uses should be sent to a reference laboratory for confirmation. Acetaminophen Levelon 2019 Acetaminophen [Mass/Vol] <5 Low 10 - 30 ug/mL [place] Interpretation and review of laboratory results Abnormal [place] Basic Metabolic Panelon 09-06 Anion gap [Moles/Vol] 15 mmol/L 9 - 17 mmol/L [place] Bun/Cre Ratio 13 [place] Calcium [Mass/Vol] 10.5 mg/dL High 8.4 - 10. 2 mg/dL [place] Chloride [Moles/Vol] 98 mmol/L 98 - 10 7 mmol/L [place] CO2 [Moles/Vol] 23 mmol/L 20 - 31 mmol/L [place] Creatinine [Mass/Vol] 0.61 mg/dL 0.5 - 0.9 mg/dL [place] GFR NOT REPORTED >60 mL/min [place] GFR Non- Pediatric GFR requires additional information. Refer to NKDEP website for calculator. >60 mL/min [place] GFR/1.73 sq M predicted among non-blacks MDRD (S/P/Bld) [Vol rate/Area] NOT REPORTED [place] GFR/1.73 sq M predicted among non-blacks MDRD (S/P/Bld) [Vol rate/Area] [place] Comment on above: Average GFR for <20 years old not available. Chronic Kidney Disease: <60 mL/min/1.73sq m Kidney failure: <15 mL/min/1.73sq m eGFR calculated using average adult body mass. Additional eGFR calculator available at: http://www.[employer].DailyObjects.com/multiple_crcl_2011.htm Glucose [Mass/Vol] 106 mg/dL High 60 - 100 mg/dL [place] Potassium [Moles/Vol] 3.9 mmol/L 3.6 - 4.9 mmol/L [place] Sodium [Moles/Vol] 136 mmol/L 135 - 144 mmol/L [place] Urea nitrogen [Mass/Vol] 8 mg/dL 5 - 18 mg/dL [place] CBC Auto Differentialon 09-06 Basophils (Bld) [#/Vol] 0.00 10*3/uL [place] Basophils/100 WBC (Bld) 0 % 0 - 2 % [place] Differential Type YES [place] Eosinophils (Bld) [#/Vol] 0.10 10*3/uL [place] Eosinophils/100 WBC (Bld) 1 % 0 - 5 % [place] Erythrocyte distribution width (RBC) [Ratio] 14.8 % 12.1 - 15.2 % [place] Hematocrit (Bld) [Volume fraction] 40.2 % 36 - 46 % [place] Hemoglobin (Bld) [Mass/Vol] 13.8 g/dL 12 - 16 g/dL [place] Lymphocytes (Bld) [#/Vol] 1.90 10*3/uL [place] Lymphocytes/100 WBC (Bld) 21 % 14 - 41 % [place] MCH (RBC) [Entitic mass] 28.4 pg 25 - 35 pg [place] MCHC (RBC) [Mass/Vol] 34.2 g/dL 31 - 37 g/dL [place] MCV (RBC) [Entitic vol] 83.1 fL 78 - 102 fL [place] Monocytes (Bld) [#/Vol] 0.70 10*3/uL [place] Monocytes/100 WBC (Bld) 7 % 4 - 8 % [place] Platelet mean volume (Bld) [Entitic vol] NOT REPORTED 6 - 12 fL [place] Platelets (Bld) [#/Vol] 238 10*3/uL [place] Platelets (Bld) [#/Vol] NOT REPORTED [place] RBC (Bld) [#/Vol] 4.84 10*6/uL 4 - 5.2 m/uL [place] RBC morphology finding Nom (Bld) NOT REPORTED [place] Segmented neutrophils/100 WBC (Bld) 71 % 45 - 76 % [place] Segs Absolute 6.50 [place] WBC (Bld) [#/Vol] 9.2 10*3/uL [place] WBC (Bld) [#/Vol] NOT REPORTED per 100 WBC [facility] W[facility] Morphology NOT REPORTED [facility] Ethanolon 09-27-2019 Ethanol [Mass/Vol] mg/dL <10 mg/dL [place] Ethanol percent <0.010 % Toya Williamson [facility] HCG Qualitative, Serumon hCG Qual Negative NEGATIVE [facility] [place] Comment on above: Specimens with hCG l evels near the threshold of the test (25 mIU/mL) may give a negative or indeterminate result. In such cases, another test should be performed with a new specimen in 48-72 hours. If early is suspected clinically in this setting, correlation with quantitative serum b-hCG level is suggested. [employer] has confirmed the use of plasma for this test. This has not been cleared or approved by the U.S. Food and Drug Administration. The FDA has determined that such clearance is not necessary. Otheron 09-27-2019 Interpretation and review of laboratory results Abnormal [facility] [place] Immature granulocytes (Bld) [#/Vol] NOT REPORTED 0 % [place] Salicylateon 09-27-2019 Salicylate Lvl <1 Low 3 - 10 mg/dL [facility] brendan[facility] TSH without Reflexon 020 TSH Qn 0.49 m[IU]/L [place] XR HAND RIGHT (MIN 3 VIEWS)o n 09-27-2019 EXAM: XR HAND RIGHT (MIN 3 VIEWS) HISTORY: Reason for exam:->pain to lateral MCs, punched wall COMPARISON: Right hand, 07/20/2014. TECHNIQUE: AP, oblique and lateral views of the right hand. FINDINGS: No acute or intrinsic osseous, articular or soft tissue abnormality is seen. [place] No acute findings. [place], [employer] Incoming Radiant Results From [employer] - 09/27/2019 11:39 PM EDT EXAM: XR HAND RIGHT (MIN 3 VIEWS) HISTORY: Reason for exam:->pain to lateral MCs, punched wall COMPARISON: Right hand, 07/20/2014. TECHNIQUE: AP, oblique and lateral views of the right hand. FINDINGS: No acute or intrinsic osseous, articular or soft tissue abnormality is seen. IMPRESSION: No acute findings. [place] CBC Auto Differentialon 11-0 7-2019 Basophils (Bld) [#/Vol] 0.00 10*3/uL [place] Basophils/100 WBC (Bld) 1 % 0 - 2 % [place] Differential Type YES [place] Eosinophils (Bld) [#/Vol] 0.00 10*3/uL [place] Eosinophils/100 WBC (Bld) 1 % 0 - 5 % [place] Erythrocyte distribution width (RBC) [Ratio] 14.3 % 12.1 - 15.2 % [place] Hematocrit (Bld) [Volume fraction] 40.7 % 36 - 46 % [place] Hemoglobin (Bld) [Mass/Vol] 13.4 g/dL 12 - 16 g/dL [place] Interpretation and review of laboratory results Abnormal [place] Lymphocytes (Bld) [#/Vol] 1.20 10*3/uL [place] Lymphocytes/100 WBC (Bld) 33 % 14 - 41 % [place] MCH (RBC) [Entitic mass] 27.3 pg 25 - 35 pg [place] MCHC (RBC) [Mass/Vol] 33.0 g/dL 31 - 37 g/dL [place] MCV (RBC) [Entitic vol] 82.8 fL 78 - 102 fL [place] Monocytes (Bld) [#/Vol] 0.40 10*3/uL [place] Monocytes/100 WBC (Bld) 12 % High 4 - 8 % [place] Platelet mean volume (Bld) [Entitic vol] NOT REPORTED 6 - 12 fL [place] Platelets (Bld) [#/Vol] 235 10*3/uL [place] Platelets (Bld) [#/Vol] NOT REPORTED [place] RBC (Bld) [#/Vol] 4.92 10*6/uL 4 - 5.2 m/uL [place] RBC morphology finding Nom (Bld) NOT REPORTED [place] Segmented neutrophils/100 WBC (Bld) 53 % 45 - 76 % [place] Segs Absolute 2.10 Low [place] WBC (Bld) [#/Vol] 3.8 10*3/uL [place] WBC (Bld) [#/Vol] NOT REPORTED per 100 WBC [place] WBC Morphology NOT REPORTED [place] Comprehensive Metabolic Pane bonita 01-12-2019 Albumin [Mass/Vol] 4.8 g/dL High 3.2 - 4.5 g/dL [place] Albumin/Globulin [Mass ratio] NOT REPORTED [place] ALP [Catalytic activity/Vol] 88 U/L 47 - 119 U/L [place] ALT [Catalytic activity/Vol] 12 U/L 5 - 33 U/L [place] Anion gap [Moles/Vol] 17 mmol/L 9 - 17 mmol/L [place] AST [Catalytic activity/Vol] 24 U/L <32 [place] Bilirubin Ql (U) 0.46 mg/dL 0.3 - 1.2 mg/dL [place] Bun/Cre Ratio 14 [place] Calcium [Mass/Vol] 10.4 mg/dL High 8.4 - 10. 2 mg/dL [place] Chloride [Moles/Vol] 101 mmol/L 98 - 10 7 mmol/L [place] CO2 [Moles/Vol] 22 mmol/L 20 - 31 mmol/L [place] Creatinine [Mass/Vol] 0.65 mg/dL 0.5 - 0.9 mg/dL [place] GFR NOT REPORTED >60 mL/min [place] GFR Non- Pediatric GFR requires additional information. Refer to NKDEP website for calculator. >60 mL/min [place] GFR/1.73 sq M predicted among non-blacks MDRD (S/P/Bld) [Vol rate/Area] NOT REPORTED [place] GFR/1.73 sq M predicted among non-blacks MDRD (S/P/Bld) [Vol rate/Area] [place] Comment on above: Average GFR for <20 years old not available. Chronic Kidney Disease: <60 mL/min/1.73sq m Kidney failure: <15 mL/min/1.73sq m eGFR calculated using average adult body mass. Additional eGFR calculator available at: http://www.[employer]/multiple_crcl_2012.htm Glucose [Mass/Vol] 90 mg/dL 60 - 100 mg/dL [place] Interpretation and review of laboratory results Abnormal [place] Potassium [Moles/Vol] 3.9 mmol/L 3.6 - 4.9 mmol/L [place] Protein [Mass/Vol] 8.7 g/dL High 6 - 8 g/dL [place] Sodium [Moles/Vol] 140 mmol/L 135 - 144 mmol/L [place] Urea nitrogen [Mass/Vol] 9 mg/dL 5 - 18 mg/dL [place] HCG Qualitative, Serumon hCG Qual Negative NEGATIVE [place] Comment on above: Specimens with hCG l evels near the threshold of the test (25 mIU/mL) may give a negative or indeterminate result. In such cases, another test should be performed with a new specimen in 48-72 hours. If early is suspected clinically in this setting, correlation with quantitative serum b-hCG level is suggested. [facility] has confirmed the use of plasma for this test. This has not been cleared or approved by the U.S. Food and Drug Administration. The FDA has determined that such clearance is not necessary. Otheron 01-12-2019 Immature granulocytes (Bld) [#/Vol] NOT REPORTED [place] HCG QUALITATIVE, URINEon HCG ( test) Ql (U) Negative [facility] Otheron 12-18-2018 Interpretation and review of laboratory results Abnormal [employer] URINALYSIS, MACROon 12-19-19 19 Bilirubin Ql (U) Negative NEGATIVE [facility] Clarity (U) CLEAR CLEAR [facility] Color (U) YELLOW YELLOW [facility] Glucose Test strip (U) [Mass/Vol] Negative NEGATIVE mg/dl [facility] Hemoglobin Ql (U) Negative NEGATIVE [facility] Ketones (U) [Mass/Vol] Negative NEGATIVE mg/dl [facility] Leukocyte esterase Test strip Ql (U) Negative NEGATIVE [facility] Nitrite Ql (U) Negative NEGATIVE [facility] TH pH (U) 7.0 [pH] [facility] Protein Ql (U) TRACE Abnormal NEGATIVE mg/dl [facility] Specific gravity (U) [Rel density] 1.025 [facility] Urobilinogen (U) [Mass/Vol] 0.2 [facility] URINE HCG QUALon 12-18-2018 Beta HCG ( test) Ql (U) Negative Normal [facility] URINE MACROSCOPICon 12-19-19 19 Bilirubin Ql (U) Negative Normal NEGATIVE [facility] Clarity (U) CLEAR Normal CLEAR [facility] Color (U) YELLOW Normal YELLOW [facility] Glucose Ql (U) Negative Normal NEGATIVE [facility] pH (U) 7.0 [pH] Normal 5.0-7.0 [facility] Protein (U) [Mass/Vol] TRACE Abnormal NEGATIVE [facility] URINE HEMOGLOBIN Negative Normal NEGATIVE [facility] URINE KETONE Negative Normal NEGATIVE [facility] URINE LEUKOTEST Negative Normal NEGATIVE [facility] URINE NITRATES Negative Normal NEGATIVE [facility] URINE SPEC GRAVITY 1.025 Normal 1.010-1.025 [facility] Urobilinogen Qn (U) 0.2 {Manuel'U}/dL Normal 0.2-1.0 [facility] URINE MICROSCOPICon 12-19-19 19 Bacteria LM.HPF (Urine sed) [#/Area] TRACE Abnormal NEGATIVE [facility] Casts LM.LPF (Urine sed) [#/Area] NONE Normal NONE [facility] CRYSTAL NONE Normal NONE [facility] Epithelial cells LM.HPF (Urine sed) [#/Area] 10 TO 20 Normal [facility] Mucus Ql (Urine sed) Negative Normal NEGATIVE [facility] RBC (U) [#/Vol] Negative Normal NEGATIVE [facility] URINE COMMENT CULTURE CRITERIA NOT MET, NO CULTURE PERFORMED. Normal [facility] WBC (U) [#/Vol] 1 TO 5 Normal NEGATIVE [facility] Bacteria LM.HPF (Urine sed) [#/Area] TRACE Abnormal NEGATIVE [facility] Casts LM.LPF (Urine sed) [#/Area] NONE NONE /LPF [facility] Crystals LM Nom (Urine sed) NONE NONE [facility] Epithelial cells LM Ql (Urine sed) 10 TO 20 /HPF [facility] Mucus Ql (Urine sed) Negative NEGATIVE [facility] RBC LM.HPF (Urine sed) [#/Area] Negative NEGATIVE /HPF [facility] Urine sediment comments LM Vinnie (Urine sed) CULTURE CRITERIA NOT MET, NO CULTURE PERFORMED. [facility] WBC LM.HPF (Urine sed) [#/Area] 1 TO 5 NEGATIVE /HPF [facility] Strep Screen Group A Throato n 12-16-2018 S. pyogenes Ag IA Ql (Unsp spec) Rapid Strep A negative. A negative Rapid Group A Strep Screen result does not rule out the possibility of Group A Streptococci in the specimen. The [place] [employer] recommends confirmation testing. Therefore, a Group A Strep DNA test will be performed. [place] Special Requests NOT REPORTED [place] Specimen Description .THROAT [place], [place] XR CHEST STANDARD (2 VW)on Negative chest. [place] EXAM: XR CHEST (2 VW) HISTORY: Reason for exam:->cough COMPARISON: None. TECHNIQUE: 2 views chest FINDINGS: Heart size normal. Lungs clear. Bony thorax and upper abdomen normal. [place], [employer] Incoming Radiant Results From [employer] - 12/16/2018 5:28 PM EDT EXAM: XR CHEST (2 VW) HISTORY: Reason for exam:->cough COMPARISON: None. TECHNIQUE: 2 views chest FINDINGS: Heart size normal. Lungs clear. Bony thorax and upper abdomen normal. IMPRESSION: Negative chest. [place] Vital Signs Date Time Vital Sign Value Performing Clinician Shadi ag 03-06-2024 [id number] Body weight 72.18 kg Jewell MATTHEWS Work Phone: [facility] 03-06-2024 10:11-0500 Diastolic blood pressure 64 mm[Hg] Jewell MATTHEWS Work Phone: [facility] 03-06-2024 10:11-0500 Systolic blood pressure 110 mm[Hg] Jewell MATTHEWS Work Phone: [facility] 02-21-2024 10:13-0500 Body height 160 cm Doyle Amaro MD Work Phone: [facility] 02-21-2024 10:13-0500 Body mass index (BMI) [Ratio] 28.52 kg/m2 Doyle Amaro MD Work Phone: [facility] 02-21-2024 10:13-0500 Body weight 73.03 kg Doyle Amaro MD Work Phone: [facility] 02-21-2024 10:13-0500 Diastolic blood pressure 70 mm[Hg] Doyle Amaro MD Work Phone: [facility] 02-21-2024 10:13-0500 Systolic blood pressure 105 mm[Hg] Doyle Amaro MD Work Phone: [facility] 02-07-2024 11:12-0500 Body mass index (BMI) [Ratio] 28.63 kg/m2 Malka Allison PRESIDENT & CEO-HEARING AIDE TECHNICIAN Work Phone: [facility] 02-07-2024 11:12-0500 Body weight 73.3 kg Malka Allison PRESIDENT & CEO-HEARING AIDE TECHNICIAN Work Phone: [facility] 02-07-2024 11:12-0500 Diastolic blood pressure 60 mm[Hg] Malka Allison PRESIDENT & CEO-HEARING AIDE TECHNICIAN Work Phone: [facility] 02-07-2024 11:12-0500 Systolic blood pressure 108 mm[Hg] Malka Allison PRESIDENT & CEO-HEARING AIDE TECHNICIAN Work Phone: [facility] 01-10-2024 09:44-0500 Body mass index (BMI) [Ratio] 27.56 kg/m2 Nahed Stewart MD Work Phone: [facility] 01-10-2024 09:44-0500 Body weight 70.58 kg Nahed Stewart MD Work Phone: [facility] 01-10-2024 09:44-0500 Diastolic blood pressure 60 mm[Hg] Nahed Stewart MD Work Phone: [facility] 01-10-2024 09:44-0500 Systolic blood pressure 100 mm[Hg] Nahed Stewart MD Work Phone: [facility] 12-13-2023 09:17-0400 Body mass index (BMI) [Ratio] 26.04 kg/m2 Nahed Stewart MD Work Phone: [facility] 12-13-2023 09:17-0400 Body weight 66.68 kg Nahed Stewart MD Work Phone: [facility] 12-13-2023 09:17-0400 Diastolic blood pressure 60 mm[Hg] Nahed Stewart MD Work Phone: [phone] [place] [address] 12-13-2023 09:17-0400 Systolic blood pressure 100 mm[Hg] Nahed Stewart MD Work Phone: [facility] 11-11-2023 13:33-0400 Body mass index (BMI) [Ratio] 24.98 kg/m2 Nahed Stewart MD Work Phone: [facility] 11-11-2023 13:33-0400 Body weight 63.96 kg Nahed Stewart MD Work Phone: [facility] 11-11-2023 13:33-0400 Diastolic blood pressure 56 mm[Hg] Nahed Stewart MD Work Phone: [facility] 11-11-2023 13:33-0400 Systolic blood pressure 112 mm[Hg] Nahed Stewart MD Work Phone: [facility] 10-14-2023 13:27-0400 Body height 160 cm Doyle Amaro MD Work Phone: [facility] 10-14-2023 13:27-0400 Body mass index (BMI) [Ratio] 24.62 kg/m2 Doyle Amaro MD Work Phone: [facility] 10-14-2023 13:27-0400 Body weight 63.05 kg Doyle Amaro MD Work Phone: [facility] 10-14-2023 13:27-0400 Diastolic blood pressure 62 mm[Hg] Doyle Amaro MD Work Phone: [facility] 10-14-2023 13:27-0400 Systolic blood pressure 120 mm[Hg] Doyle Amaro MD Work Phone: [facility] 09-26-2023 19:52-0400 Diastolic blood pressure 86 mm[Hg] Justin Kash [facility] 09-26-2023 19:52-0400 Heart rate 96 /min Justin Kash [facility] 09-26-2023 19:52-0400 Mean blood pressure 97 mm[Hg] Justin Kash [facility] 09-26-2023 19:52-0400 Respiratory rate 23 /min Justin Kash [facility] 09-26-2023 19:52-0400 SaO2% (BldA) [Mass fraction] 99 % Justin Kash [facility] 09-26-2023 19:52-0400 Systolic blood pressure 120 mm[Hg] Justin Kash [facility] 09-26-2023 18:46-0400 Diastolic blood pressure 81 mm[Hg] Justin Kash [facility] 09-26-2023 18:46-0400 Heart rate 89 /min Justin Kash [facility] 09-26-2023 18:46-0400 Mean blood pressure 96 mm[Hg] Justin Kash [facility] 09-26-2023 18:46-0400 Respiratory rate 18 /min Justin Kash [facility] 09-26-2023 18:46-0400 SaO2% (BldA) [Mass fraction] 98 % Justin Kash [facility] 09-26-2023 18:46-0400 Systolic blood pressure 126 mm[Hg] Justin Kash [facility] 09-26-2023 18:00-0400 Heart rate 97 /min Justin Kash [facility] 09-26-2023 18:00-0400 Mean blood pressure 94 mm[Hg] Justin Kash [facility] 09-26-2023 18:00-0400 SaO2% (BldA) [Mass fraction] 100 % Justin Kash [facility] 09-26-2023 18:00-0400 Systolic blood pressure 121 mm[Hg] Justin Kash [facility] 09-26-2023 16:57-0400 Body temperature 98.96 [degF] Justin Kash [facility] 09-26-2023 16:57-0400 Heart rate 94 /min Justin Kash [facility] 09-26-2023 16:57-0400 Respiratory rate 18 /min Justin Kash [facility] 09-26-2023 16:42-0400 Body temperature 98.6 [degF] Justin Kash [facility] 09-26-2023 16:42-0400 Heart rate 106 /min Justin Kash [facility] 09-26-2023 16:42-0400 Respiratory rate 18 /min Justin Kash [facility] 09-24-2023 13:28-0400 [id number] 09-24-2023 13:28-0400 Body mass index (BMI) [Ratio] 23.91 kg/m2 Avg [facility] [id number] [facility] 09-24-2023 13:28-0400 Body weight 61.24 kg Avg [place] [facility] 09-24-2023 13:28-0400 Diastolic blood pressure 68 mm[Hg] Avg [place] [id number] [facility] 09-24-2023 13:28-0400 Systolic blood pressure 112 mm[Hg] [address] 09-16-2023 08:37-0400 Body temperature 98.24 [degF] [facility] 09-16-2023 08:37-0400 Diastolic blood pressure 78 mm[Hg] [facility] 09-16-2023 08:37-0400 Heart rate 76 /min [facility] 09-16-2023 08:37-0400 Respiratory rate 18 /min [facility] 09-16-2023 08:37-0400 SaO2% (BldA) [Mass fraction] 100 % [facility] 09-16-2023 08:37-0400 Systolic blood pressure 126 mm[Hg] [facility] 09-13-2023 10:56-0400 Blood Pressure Location Pari Underwood [facility] 09-13-2023 10:56-0400 Body temperature 97.88 [degF] Pari Underwood [facility] 09-13-2023 10:56-0400 Diastolic blood pressure 68 mm[Hg] Pari Underwood [facility] 09-13-2023 10:56-0400 Heart rate 74 /min Pari Underwood [facility] [place] 09-13-2023 10:56-0400 Respiratory rate 18 /min Pari Underwood [facility] 09-13-2023 10:56-0400 SaO2% (BldA) [Mass fraction] 98 % Pari Underwood [facility] 09-13-2023 10:56-0400 Systolic blood pressure 110 mm[Hg] Pari Underwood [facility] 08-13-2023 14:20-0400 Blood Pressure Location Pari Underwood [facility] 08-13-2023 14:20-0400 Body temperature 97.88 [degF] Pari Underwood [facility] [place] 08-13-2023 14:20-0400 Diastolic blood pressure 80 mm[Hg] Pari Underwood [facility] [place] 08-13-2023 14:20-0400 Heart rate 88 /min Pari Underwood [facility] [place] 08-13-2023 14:20-0400 Respiratory rate 16 /min Pari Underwood [facility] [place] 08-13-2023 14:20-0400 SaO2% (BldA) [Mass fraction] 99 % Pari Underwood [facility] 08-13-2023 14:20-0400 Systolic blood pressure 122 mm[Hg] Pari Underwood [facility] 08-04-2023 14:57-0400 Body mass index (BMI) [Ratio] 22.96 kg/m2 Nahed Stewart MD Work Phone: [employer] 08-04-2023 14:57-0400 Body weight 58.79 kg Nahed Stewart MD Work Phone: [facility] 08-04-2023 14:57-0400 Diastolic blood pressure 62 mm[Hg] Nahed Stewart MD Work Phone: [facility] 08-04-2023 14:57-0400 Systolic blood pressure 120 mm[Hg] Nahed Stewart MD Work Phone: [employer] 04-16-2023 14:16-0500 Body mass index (BMI) [Ratio] 20.87 kg/m2 Nahed Stewart MD Work Phone: [employer] 04-16-2023 14:16-0500 Body weight 53.43 kg Nahed Stewart MD Work Phone: [employer] 04-16-2023 14:16-0500 Diastolic blood pressure 76 mm[Hg] Nahed Stewart MD Work Phone: [employer] 04-16-2023 14:16-0500 Systolic blood pressure 118 mm[Hg] Nahed Stewart MD Work Phone: [employer] 10-23-2022 09:25-0400 Body height 160 cm Nahed Stewart MD Work Phone: [employer] 10-23-2022 09:25-0400 Body mass index (BMI) [Ratio] 21.33 kg/m2 Nahed Stewart MD Work Phone: [employer] 10-23-2022 09:25-0400 Body weight 54.61 kg Nahed Stewart MD Work Phone: [employer] 10-23-2022 09:25-0400 Diastolic blood pressure 68 mm[Hg] Nahed Stewart MD Work Phone: [employer] 10-23-2022 09:25-0400 Systolic blood pressure 100 mm[Hg] Nahed Stewart MD Work Phone: [facility] 09-01-2022 13:16-0400 Body mass index (BMI) [Ratio] 21.36 kg/m2 Nahed Stewart MD Work Phone: [facility] 09-01-2022 13:16-0400 Body weight 54.7 kg Nahed Stewart MD Work Phone: [facility] 09-01-2022 13:16-0400 Diastolic blood pressure 66 mm[Hg] Nahed Stewart MD Work Phone: [facility] 09-01-2022 13:16-0400 Systolic blood pressure 120 mm[Hg] Nahed Stewart MD Work Phone: [facility] 06-08-2022 13:20-0400 Body temperature 98.71 [degF] [employer] 06-08-2022 13:20-0400 Diastolic blood pressure 70 mm[Hg] [facility] 06-08-2022 13:20-0400 Heart rate 82 /min [facility] 06-08-2022 13:20-0400 Respiratory rate 18 /min [facility] 06-08-2022 13:20-0400 SaO2% (BldA) [Mass fraction] 97 % [facility] 06-08-2022 13:20-0400 Systolic blood pressure 117 mm[Hg] [facility] 04-22-2022 09:40-0500 Body mass index (BMI) [Ratio] 21.01 kg/m2 Nahed Stewart MD Work Phone: [facility] 04-22-2022 09:40-0500 Body weight 53.8 kg Nahed Stewart MD Work Phone: [facility] 04-22-2022 09:40-0500 Diastolic blood pressure 62 mm[Hg] Nahed Stewart MD Work Phone: [facility] 04-22-2022 09:40-0500 Systolic blood pressure 110 mm[Hg] Nahed Stewart MD Work Phone: [facility] 03-20-2022 14:35-0500 Body mass index (BMI) [Ratio] 22.21 kg/m2 Nahed Stewart MD Work Phone: [facility] 03-20-2022 14:35-0500 Body weight 56.88 kg Nahed Stewart MD Work Phone: [facility] 03-20-2022 14:35-0500 Diastolic blood pressure 70 mm[Hg] Nahed Stewart MD Work Phone: [employer] [facility] 03-20-2022 14:35-0500 Systolic blood pressure 118 mm[Hg] Nahed Stewart MD Work Phone: [employer] [facility] 10-24-2021 14:45-0400 Body height 160 cm Nahed Stewart MD Work Phone: [facility] [employer] [facility] 10-24-2021 14:45-0400 Body mass index (BMI) [Ratio] 23.03 kg/m2 Nahed Stewart MD Work Phone: [facility] [employer] [facility] 10-24-2021 14:45-0400 Body weight 58.97 kg Nahed Stewart MD Work Phone: [employer] [facility] 10-24-2021 14:45-0400 Diastolic blood pressure 62 mm[Hg] Nahed Stewart MD Work Phone: [facility] [employer] [facility] 10-24-2021 14:45-0400 Systolic blood pressure 120 mm[Hg] Nahed Stewart MD Work Phone: [facility] [employer] [facility] 08-05-2021 09:20-0400 Body mass index (BMI) [Ratio] 28.09 kg/m2 Nahed Stewart MD Work Phone: [facility] 08-05-2021 09:20-0400 Body weight 71.94 kg Nahed Stewart MD Work Phone: [facility] [facility] 08-05-2021 09:20-0400 Diastolic blood pressure 56 mm[Hg] Nahed Stewart MD Work Phone: [facility] [employer] [facility] 08-05-2021 09:20-0400 Systolic blood pressure 98 mm[Hg] Nahed Stewart MD Work Phone: [facility] 07-28-2021 09:03-0400 Body height 160 cm Doyle Amaro MD Work Phone: [facility] 07-28-2021 09:03-0400 Body mass index (BMI) [Ratio] 27.46 kg/m2 Doyle Amaro MD Work Phone: [facility] 07-28-2021 09:03-0400 Body weight 70.31 kg Doyle Amaro MD Work Phone: [facility] 07-28-2021 09:03-0400 Diastolic blood pressure 64 mm[Hg] Doyle Amaro MD Work Phone: [facility] 07-28-2021 09:03-0400 Systolic blood pressure 140 mm[Hg] Doyle Amaro MD Work Phone: [facility] 07-14-2021 09:00-0400 Body height 160 cm Malka Allison PRESIDENT & CEO-HEARING AIDE TECHNICIAN Work Phone: [facility] 07-14-2021 09:00-0400 Body mass index (BMI) [Ratio] 26.75 kg/m2 Malka Allison PRESIDENT & CEO-HEARING AIDE TECHNICIAN Work Phone: [facility] 07-14-2021 09:00-0400 Body weight 68.49 kg Malka Allison PRESIDENT & CEO-HEARING AIDE TECHNICIAN Work Phone: [facility] 07-14-2021 09:00-0400 Diastolic blood pressure 62 mm[Hg] Malka Allison PRESIDENT & CEO-HEARING AIDE TECHNICIAN Work Phone: [facility] 07-14-2021 09:00-0400 Systolic blood pressure 106 mm[Hg] Malka Allison PRESIDENT & CEO-HEARING AIDE TECHNICIAN Work Phone: [facility] 06-30-2021 09:33-0400 Body height 160 cm Doyle Amaro MD Work Phone: [facility] 06-30-2021 09:33-0400 Body mass index (BMI) [Ratio] 26.04 kg/m2 Doyle Amaro MD Work Phone: [facility] 06-30-2021 09:33-0400 Body weight 66.68 kg Doyle Amaro MD Work Phone: [facility] 06-30-2021 09:33-0400 Diastolic blood pressure 64 mm[Hg] Doyle Amaro MD Work Phone: [facility] 06-30-2021 09:33-0400 Systolic blood pressure 102 mm[Hg] Doyle Amaro MD Work Phone: [facility] 06-16-2021 09:08-0400 Body height 160 cm Malka Betancuram PRESIDENT & CEO-HEARING AIDE TECHNICIAN Work Phone: [facility] 06-16-2021 09:08-0400 Body mass index (BMI) [Percentile] Per age and sex 84.17 % Malka Allison PRESIDENT & CEO-HEARING AIDE TECHNICIAN Work Phone: [facility] 06-16-2021 09:08-0400 Body mass index (BMI) [Ratio] 25.86 kg/m2 Malka Allison PRESIDENT & CEO-HEARING AIDE TECHNICIAN Work Phone: [facility] 06-16-2021 09:08-0400 Body weight 66.22 kg Malka Allison PRESIDENT & CEO-HEARING AIDE TECHNICIAN Work Phone: [facility] 06-16-2021 09:08-0400 Diastolic blood pressure 64 mm[Hg] Malka Allison PRESIDENT & CEO-HEARING AIDE TECHNICIAN Work Phone: [facility] 06-16-2021 09:08-0400 Systolic blood pressure 106 mm[Hg] Malka Allison PRESIDENT & CEO-HEARING AIDE TECHNICIAN Work Phone: [facility] 06-02-2021 09:07-0400 Body mass index (BMI) [Percentile] Per age and sex 79.15 % Nahed Stewart MD Work Phone: [facility] 06-02-2021 09:07-0400 Body mass index (BMI) [Ratio] 24.8 kg/m2 Nahed Stewart MD Work Phone: [facility] 06-02-2021 09:07-0400 Body weight 63.5 kg Nahed Stewart MD Work Phone: [facility] 06-02-2021 09:07-0400 Diastolic blood pressure 56 mm[Hg] Nahed Stewart MD Work Phone: [facility] 06-02-2021 09:07-0400 Systolic blood pressure 100 mm[Hg] Nahed Stewart MD Work Phone: [employer] [facility] 05-13-2021 10:08-0500 Body height 160 cm Malka Allison PRESIDENT & CEO-HEARING AIDE TECHNICIAN Work Phone: [employer] [facility] 05-13-2021 10:08-0500 Body mass index (BMI) [Percentile] Per age and sex 72.35 % Malka Allison PRESIDENT & CEO-HEARING AIDE TECHNICIAN Work Phone: [employer] [facility] 05-13-2021 10:08-0500 Body mass index (BMI) [Ratio] 23.74 kg/m2 Malka Allison PRESIDENT & CEO-HEARING AIDE TECHNICIAN Work Phone: [employer] [facility] 05-13-2021 10:08-0500 Body weight 60.78 kg Malka Allison PRESIDENT & CEO-HEARING AIDE TECHNICIAN Work Phone: [facility] 05-13-2021 10:08-0500 Diastolic blood pressure 62 mm[Hg] Malka Allison PRESIDENT & CEO-HEARING AIDE TECHNICIAN Work Phone: [facility] [facility] 05-13-2021 10:08-0500 Systolic blood pressure 104 mm[Hg] Malka Allison PRESIDENT & CEO-HEARING AIDE TECHNICIAN Work Phone: [employer] [facility] 04-22-2021 14:24-0500 Body mass index (BMI) [Percentile] Per age and sex 72.49 % Nahed Stewart MD Work Phone: [facility] [facility] 04-22-2021 14:24-0500 Body mass index (BMI) [Ratio] 23.74 kg/m2 Nahed Stewart MD Work Phone: [facility] 04-22-2021 14:24-0500 Body weight 60.78 kg Nahed Stewart MD Work Phone: [facility] 04-22-2021 14:24-0500 Diastolic blood pressure 70 mm[Hg] Nahed Stewart MD Work Phone: [facility] [employer] [facility] 04-22-2021 14:24-0500 Systolic blood pressure 112 mm[Hg] Nahed Stewart MD Work Phone: [facility] 03-13-2021 10:20-0500 Body height 160 cm Doyle Amaro MD Work Phone: [facility] 03-13-2021 10:20-0500 Body mass index (BMI) [Percentile] Per age and sex 59.91 % Doyle Amaro MD Work Phone: [employer] [facility] 03-13-2021 10:20-0500 Body mass index (BMI) [Ratio] 22.32 kg/m2 Doyle Amaro MD Work Phone: [facility] [employer] [facility] 03-13-2021 10:20-0500 Body weight 57.15 kg Doyle Amaro MD Work Phone: [employer] [facility] 03-13-2021 10:20-0500 Diastolic blood pressure 76 mm[Hg] Doyel Amaro MD Work Phone: [employer] [facility] 03-13-2021 10:20-0500 Systolic blood pressure 122 mm[Hg] Doyle Amaro MD Work Phone: [facility] [employer] [facility] 02-06-2021 09:17-0500 Body height 160 cm Doyle Amaro MD Work Phone: [facility] 02-06-2021 09:17-0500 Body mass index (BMI) [Percentile] Per age and sex 56.34 % Doyle Amaro MD Work Phone: [facility] 02-06-2021 09:17-0500 Body mass index (BMI) [Ratio] 21.97 kg/m2 Doyle Amaro MD Work Phone: [facility] 02-06-2021 09:17-0500 Body weight 56.25 kg Doyle Amaro MD Work Phone: [facility] 02-06-2021 09:17-0500 Diastolic blood pressure 70 mm[Hg] Doyle Amaro MD Work Phone: [facility] 02-06-2021 09:17-0500 Systolic blood pressure 112 mm[Hg] Doyle Amaro MD Work Phone: [facility] 01-14-2021 09:45-0500 Body height 160 cm Avg Gurjit Gal [id number] [facility] 01-14-2021 09:45-0500 Body mass index (BMI) [Percentile] Per age and sex 60.4 % Avg Gurjit Gal [id number] [facility] 01-14-2021 09:45-0500 Body mass index (BMI) [Ratio] 22.32 kg/m2 Avg Gurjit Gal [id number] [facility] 01-14-2021 09:45-0500 Body weight 57.15 kg Avg Gurjit Gal [id number] [facility] 01-14-2021 09:45-0500 Diastolic blood pressure 72 mm[Hg] Avg Gurjit Gal [id number] [facility] 01-14-2021 09:45-0500 Systolic blood pressure 112 mm[Hg] Avg Gurjit Gal [id number] [facility] 09-28-2019 08:35-0400 BP Diastolic 68 mm[Hg] [facility] [place] 09-28-2019 08:35-0400 BP Systolic 140 mm[Hg] [facility] [place] 09-28-2019 08:35-0400 Pulse (Heart Rate) 92 /min [facility] 09-28-2019 08:35-0400 Pulse Oximetry 99 % [facility] 09-28-2019 08:35-0400 Respiratory Rate 16 /min [facility] 09-28-2019 06:54-0400 Body Temperature 98.29 [degF] [facility] 09-27-2019 22:49-0400 BMI (Body Mass Index) 21.43 kg/m2 [facility] 09-27-2019 22:49-0400 Body weight 54.88 kg Miguel Angel Singh [facility], [place] 09-27-2019 22:49-0400 Height 160 cm [facility] [place] 05-19-2019 19:55-0400 BP Diastolic 59 mm[Hg] [facility] 05-19-2019 19:55-0400 BP Systolic 114 mm[Hg] [facility] 05-19-2019 19:55-0400 Pulse (Heart Rate) 66 /min [facility], [place] 05-19-2019 19:55-0400 Pulse Oximetry 100 % [facility] 05-19-2019 19:55-0400 Respiratory Rate 18 /min [facility] 05-19-2019 18:36-0400 BMI (Body Mass Index) 21.97 kg/m2 [facility] 05-19-2019 18:36-0400 Body Temperature 98.29 [degF] [facility] 05-19-2019 18:36-0400 Body weight 56.25 kg [facility] 05-19-2019 18:36-0400 Height 160 cm [facility] 03-08-2019 18:31-0500 Body temperature 98.1 [degF] Peter Petty MD Work Phone: [employer] Work Phone: 03-08-2019 18:31-0500 Body weight 57.15 kg Peter Petty MD Work Phone: [employer] Work Phone: 03-08-2019 18:31-0500 Diastolic blood pressure 90 mm[Hg] Peter Petty MD Work Phone: [employer] Work Phone: 03-08-2019 18:31-0500 Heart rate 86 /min Peter Petty MD Work Phone: [employer] Work Phone: 03-08-2019 18:31-0500 Respiratory rate 20 /min Peter Petty MD Work Phone: [employer] Work Phone: 03-08-2019 18:31-0500 SaO2% (BldA) [Mass fraction] 100 % Peter Petty MD Work Phone: [employer] Work Phone: 03-08-2019 18:31-0500 Systolic blood pressure 139 mm[Hg] Peter Petty MD Work Phone: [employer] Work Phone: 01-12-2019 23:01-0500 Pulse Oximetry 99 % [facility] [place] 01-12-2019 22:49-0500 BP Diastolic 80 mm[Hg] [facility] [employer] [facility] [place] 01-12-2019 22:49-0500 BP Systolic 107 mm[Hg] [facility] [place] 01-12-2019 22:17-0500 Body Temperature 97.59 [degF] [facility] [place] 01-12-2019 22:17-0500 Body weight 55.02 kg [facility] [facility] [place] 01-12-2019 22:17-0500 Pulse (Heart Rate) 64 /min [facility] [employer] [facility] [place] 01-12-2019 22:17-0500 Respiratory Rate 16 /min [facility] [place] 12-18-2018 14:52-0400 Height 160 cm [facility] 12-18-2018 14:47-0400 Body Temperature 99.81 [degF] [facility] 12-18-2018 14:47-0400 BP Diastolic 62 mm[Hg] [facility] 12-18-2018 14:47-0400 BP Systolic 108 mm[Hg] [facility] 12-18-2018 14:47-0400 Pulse (Heart Rate) 82 /min [facility] 12-18-2018 14:47-0400 Pulse Oximetry 96 % [facility] 12-18-2018 14:47-0400 Respiratory Rate 18 /min [facility] 12-16-2018 16:47-0400 BP Diastolic 46 mm[Hg] [facility] [place] 12-16-2018 16:47-0400 BP Systolic 94 mm[Hg] [place], [place] 12-16-2018 16:46-0400 Body Temperature 99.19 [degF] [facility], [place] 12-16-2018 16:46-0400 Body weight 55.2 kg [place] 12-16-2018 16:46-0400 Pulse (Heart Rate) 84 /min [place], [place] 12-16-2018 16:46-0400 Pulse Oximetry 100 % [place] 12-16-2018 16:46-0400 Respiratory Rate 16 /min [place], [place] Encounters Encounter Date Encounter Type Care Provider Facility Start: 03-06-2024 End: 03-06-2024 Bamboo flowsheet Jewell MATTHEWS Work Phone: [facility] Start: 03-06-2024 End: 03-06-2024 Bamboo flowsheet Jewell MATTHEWS Work Phone: [facility] Start: 03-06-2024 End: 03-06-2024 ambulatory JEWELL MACEDO Not Available Start: 03-06-2024 End: 03-06-2024 Office outpatient visit 15 minutes Jewell MATTHEWS Work Phone: [facility] Start: 02-28-2024 End: 02-28-2024 Clinisync Result Encounter Meir Jamal DO Work Phone: [facility] External Department Unsolicited Start: 02-28-2024 End: 02-28-2024 Clinisync Result Encounter Meir Jamal DO Work Phone: [facility] External Department Unsolicited Start: 02-27-2024 End: 02-27-2024 Clinisync Result Encounter Meir Jamal DO Work Phone: [facility] External [facility] Unsolicited Start: 02-27-2024 End: 02-27-2024 Clinisync Result Encounter Meir Jamal DO Work Phone: [facility] External [facility] Unsolicited Start: 02-26-2024 End: 02-26-2024 Clinisync Result Encounter Meir Jamal DO Work Phone: [facility] External [facility] Unsolicited Start: 02-26-2024 End: 02-26-2024 Clinisync Result Encounter Meir Jamal DO Work Phone: [facility] Unsolicited Start: 02-21-2024 End: 02-21-2024 Subsequent care visit Doyle Amaro MD Work Phone: [facility] [employer] Comment on above: Encounter for superv ision of other normal , third trimester (Primary Dx); 30 weeks gestation of Start: 02-21-2024 [facility] Start: 02-18-2024 End: 02-18-2024 Clinisync Result Encounter Meir Jamal DO Work Phone: [facility] External [facility] Unsolicited Start: 02-18-2024 End: 02-18-2024 Clinisync Result Encounter Meir Jamal DO Work Phone: [facility] External Department Unsolicited Start: 02-07-2024 End: 02-07-2024 Subsequent care visit Malka Allison APRN-HEARING AIDE TECHNICIAN Work Phone: [facility] [employer] Comment on above: Encounter for superv ision of other normal , third trimester (Primary Dx); 28 weeks gestation of Start: 02-07-2024 [facility] Start: 01-25-2024 End: 01-25-2024 ambulatory DORY Fuentes [facility] Start: 01-24-2024 ambulatory Justin Hewitt Facility:[facility] Start: 01-10-2024 End: 01-10-2024 Subsequent care visit Nahed Stewart MD Work Phone: [facility] [employer] Comment on above: Encounter for superv ision of other normal , second trimester (Primary Dx) Start: 01-10-2024 [facility] Start: 12-13-2023 End: 12-13-2023 Subsequent care visit Nahed Stewart MD Work Phone: [facility] [employer] Comment on above: Encounter for superv ision of other normal in second trimester (Primary Dx) Start: 12-13-2023 [facility] Start: 12-13-2023 End: 12-13-2023 Subsequent hospital visit by physician Nahed Stewart MD Work Phone: [facility] Start: 11-11-2023 End: 11-11-2023 Subsequent care visit Nahed Stewart MD Work Phone: [facility] [employer] Comment on above: Encounter for superv ision of other normal in first trimester (Primary Dx); 16 weeks gestation of Start: 11-11-2023 End: 11-11-2023 Subsequent hospital visit by physician Doyle Amaro MD Work Phone: [facility] Start: 11-11-2023 [facility] Start: 10-14-2023 End: 10-14-2023 Subsequent care visit Doyle Amaro MD Work Phone: [facility] [employer] Comment on above: Encounter for superv ision of other normal in first trimester (Primary Dx); Hx of herpes genitalis; Family history of diabetes mellitus in sister; 12 weeks gestation of Start: 10-14-2023 [facility] DOYLE AMARO [facility] Start: 09-26-2023 End: 09-26-2023 Emergency department patient visit Justin Hewitt [facility] Start: 09-24-2023 End: 09-24-2023 Office outpatient visit 5 minutes Nahed Stewart MD Work Phone: [facility] [employer] Comment on above: Encounter for superv ision of other normal in first trimester (Primary Dx); 9 weeks gestation of ; Family history of diabetes mellitus in sister; HSV infection; Major depressive disorder, recurrent episode, moderate Start: 09-24-2023 ambulatory [facility] Start: 09-16-2023 End: 09-16-2023 Emergency department patient visit Jl Medina [facility] Start: 09-13-2023 End: 09-13-2023 ambulatory Pari Underwood Facility:[facility] Start: 09-13-2023 End: 09-13-2023 Patient encounter procedure Pari Underwood [facility] Start: 09-08-2023 ambulatory Pari Underwood Facili ty: [place] Start: 08-30-2023 End: 08-30-2023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
--- NOTE | 2024-03-28 19:26 | US_ITS ---
[address] [address] Patient Name: DEVAN SANTANA MRN: [id number] date: 2000 Sex: F Assigned Patient Location: US Current Patient Location: Accession/Order Number: [id number] Exam Date: 03/28/2024 19:33 Report Date: 03/28/2024 23:41 At the request of: CHARLINE MIRZA Procedure: US OB growth EXAMINATION: US OB growth HISTORY: EXCESSIVE GROWTH AFFECTING O36.60X0 COMPARISON: Ultrasound OB growth 02/28/2024 FINDINGS: Heart Rate: 156.98 bpm Amniotic Fluid Volume: 14.1 cm; normal range Number: 1 Position: CEPHALIC BIOMETRY: BPD: 9.43 cm; 38 weeks 3 days; >97 % HC: 34.37 cm; 39 weeks 5 days; 94.30 % AC: 33.14 cm; 37 weeks 0 days; 85.40 % FL: 7.03 cm; 36 weeks 0 days; 46.90 % EFW: 3157.38 g; 83.20 % FL/AC: 21.22 FL/BPD: 74.58 HC/AC: 1.04 GESTATIONAL AGE: Age by EDC: 37 weeks 0 days SEBASTIAN by EDC: 2024-04-25 Age by US: 37 weeks 6 days SEBASTIAN by US: 2024-04-12 US/US OB growth IMPRESSION: 1. Single live intrauterine with growth detailed above. 2. BPD is greater than 97th percentile. 3. Possible nuchal cord. 4. Small amount of faint echogenic material within stomach; nonspecific. This can be reevaluated on follow-up. Electronically authenticated by: HAILEY MARS Date: 03/28/2024 23:41
== END 2024-03-28 19:02 | disposition home or self-care (01) ==
PROVIDERS: Visit Provider Obstetrics & Gynecology
DX: O36.63X0 Maternal care for excessive fetal growth, third trimester, not applicable or unspecified (principal); Z3A.37 37 weeks gestation of pregnancy
CPT/HCPCS: 76816

== ENCOUNTER 2024-03-30 08:35 | Outpatient (REF) | payer MEDICAID, SELFPAY ==
--- OUTSIDE RECORDS SUMMARY | 2024-03-31 08:42 | XMS_ITS | CCD ---
Author Organization [facility] Care Team Providers Care Division Officer Weapons Department Name Role Phone Kelli Amaya Primary Care Provider [phone] Kelli Amaya Primary Care Provider [phone] Kelli Amaya Primary Care Provider [phone] Unavailable Primary Care Provider Kelli Moreno MD Primary Care Provider KELLI AMAYA Primary Care Unavailable HOLDEN AYALA Referring UnavailHOLDEN Guerrero Referring UnavailKELLI Dasilva Primary Care Unavailable Unavailable Primary Care Provider Kelli Moreno MD Primary Care Provider [phone] Unavailable Primary Care Provider Unavailradha fitzgerald Unavailable [...] Care Provider Pari Underwood Primary Care Physician [phone] PARI UNDERWOOD Primary Care Unavailable GAYLE ALLISON Attending Unavailable Pari Underwood Attending Unavailable Pari Underwood Attending Unavailable Adam, Astrit H Attending Unavailable Pari Underwood Attending Unavailable Justin Hewitt Attending Unavailable Adam, Astrit H Attending Unavailable Justin Hewitt Attending Unavailable Gina, CRUSHER Kalani L Attending Unavailable Unavailable Primary Care [...] Medication Allergies] Propensity to adverse reactions (disorder) [facility] Repository Medications Current Medications Medication Drug [...] # 45 tab(s), Refills(s) 0, Pharmacy: [id number], 160, cm, 08/13/23 14:37:00 EDT, Height/Length Dosing, 58.9, kg, 08/13/23 14:37:00 EDT, Weight Dosing Start Date: 08/13/23 Status: Ordered cephalexin 500 mg oral capsule (3 sources) Cephalosporin Antibacterial Start: 02-28-2024 take 1 [...] Active diphenhydrAMINE hydrochloride 25 mg oral capsule (6 sources) Histamine-1 Receptor Antagonist take 1 capsule [...] propionate 0.05 mg/actuat metered dose nasal spray (4 sources) Corticosteroid Start: 02-19-2024 take 2 spray(s) nasal route once daily fluticasone (Flonase) 50 MCG/ACT nasal spray inhale 2 (TWO) sprays into each nostril daily 02/19/2024 Active Magnesium (15 sources) Magnesium 500 MG tablet Take by mouth. 0 Active Melatonin (15 sources) MELATONIN PO Tobias e by mouth. 0 Active metoclopramide 10 mg oral tablet (3 sources) Dopamine-2 Receptor Antagonist Start: 02-28-2024 take [...] omeprazole 20 mg delayed release oral capsule (11 sources) Proton Pump Inhibitor Start: 10-14-2023 take 1 capsule by mouth in the morning omeprazole (PriLOSEC) [address] capsule Take 20 mg by mouth in the morning. 10/14/2023 Active ondansetron 4 mg disintegrating oral tablet (17 sources) Serotonin-3 Receptor Antagonist Start: 09-24-2023 Ondansetron [...] pantoprazole 20 mg delayed release oral tablet (3 sources) Proton Pump Inhibitor Start: 02-28-2024 take 1 tablet by mouth once daily pantoprazole (ProtoNix) 20 MG EC tablet Take 20 mg by mouth Daily 02/28/2024 Active polysaccharide iron complex 391 mg oral capsule (3 sources) Start: 03-06-2024 End: 04-05-2024 take 1 capsule by mouth once daily iron polysaccharides (ProFe) 391.3 (180 Fe) MG capsule Indications: Other iron deficiency anemia Take 1 capsule (391.3 mg) by mouth Daily 30 capsule 3 03/06/2024 04/05/2024 Active 27-1 MG tablet (12 sources) take 1 tablet by mouth in [...] Sig (Original) acetaminophen 500 mg oral tablet (16 sources) Start: 09-28-2019 End: 09-28-2019 acetaminophen (TYLENOL) [...] unspecified] Onset: 09-16-2023 Episodic Other complications of (5 sources) Excessive growth affecting management of mother; [...] gestation of ] Episodic Residual codes; unclassified (6 sources) Gestation period, 32 weeks; Translations: [32 [...] UA Negative Negative - 4(70) +++ mg/dL [facility] Blood, UA Negative Negative - 50 Zackery/mcL [facility] Clarity, UA Clear [facility] Color, UA Yellow [facility] Glucose, UA Negative Negative - 1999(110) ++++ mg/dL [facility] Interpretation and review of laboratory results Normal [facility] Ketones, UA Negative Negative - 160(16) ++++ mg/dL [facility] Leukocytes, UA Negative Negative - 500+++ Katelyn/mcL [facility] Nitrite, UA Negative Negative - Positive [facility] pH, UA 7 5 - 9 [facility] Protein, UA Negative Negative - 1999(20) ++++ mg/dL [facility] Spec Grav, UA 1.015 1 - 1.03 [facility] Urobilinogen, UA 0.2 0.2 - 12 mg/dL [facility] ALL CBC WITH AUTO DIFFon BASOPHILS ABSOLUTE AUTO 0 [facility] Basophils/100 WBC (Bld) 0.5 % 0.2 - 2.0 % [facility] Eosinophils/100 WBC (Bld) 1 % 0.9 - 7.0 % [facility] Erythrocyte distribution width (RBC) [Ratio] 13.4 % 11.0 - 15.0 % [facility] Hematocrit (Bld) [Volume fraction] 29.5 % Low 36.0 - 48.0 % [facility] Hemoglobin (Bld) [Mass/Vol] 9.5 g/dL Low 12.0 - 16.0 g/dL [facility] IMMATURE GRANULOCYTES ABS AUTO 0.08 High [facility] Immature granulocytes/100 WBC (Bld) 1.9 % High 0.0 - 0.5 % [facility] Interpretation and review of laboratory results Abnormal [facility] LYMPHOCYTES ABSOLUTE AUTO 0.9 Low [facility] Lymphocytes/100 WBC (Bld) 21.7 % 20.5 - 60.0 % [facility] MCH (RBC) [Entitic mass] 27.1 pg 26.7 - 34.0 pg [facility] MCHC (RBC) [Mass/Vol] 32.2 g/dL 29.9 - 35.2 g/dL [facility] MCV (RBC) [Entitic vol] 84 fL 81.0 - 99.0 fL [facility] MONOCYTES ABSOLUTE AUTO 0.4 [facility] Monocytes/100 WBC (Bld) 9.3 % 1.7 - 12.0 % [facility] NEUTROPHILS ABSOLUTE AUTO 2.8 [facility] Neutrophils/100 WBC (Bld) 65.6 % 43.0 - 75.0 % [facility] Platelet mean volume (Bld) [Entitic vol] 9.2 fL Low 9.5 - 13.5 fL [facility] TBH EO # 0 [facility] PLT 184 [facility] RBC 3.51 Low [facility] WBC 4.2 [facility] INFLUENZA A AND B AGon 1 04-29-2023 INFLUENZA VIRUS A ANTIGEN Negative [facility] Comment on above: Negative for Flu A p rotein antigen. Infection due to Flu A cannot be ruled out. Flu A antigen in the sample may be below the detection limit of the test. INFLUENZA VIRUS B ANTIGEN Negative [facility] Comment on above: Negative for Flu B p rotein antigen. Infection due to Flu B cannot be ruled out. Flu B antigen in the sample may be below the detection limit of the test. [facility] NP/JEFFREY RO IF IND.on 02-26-2024 BILIRUBIN URINE SMALL Abnormal NEGATIVE [facility] BLOOD URINE SMALL Abnormal NEGATIVE [facility] Clarity (U) CLEAR CLEAR [facility] Color (U) LT. YELLOW YELLOW [facility] GLUCOSE URINE UA Negative NEGATIVE mg/dL [facility] Interpretation and review of laboratory results Abnormal [facility] Ketones Ql (U) >=80 Abnormal NEGATIVE mg/dL [facility] Leukocyte esterase Test strip Ql (U) Negative NEGATIVE [facility] NITRITE URINE Negative NEGATIVE [facility] pH (U) 6.0 [pH] 5.0 - 9.0 [facility] Protein (U) [Mass/Vol] 100 mg/dL Abnormal NEG/TRACE [facility] SPECIFIC GRAVITY URINE >=1.030 Abnormal 1.005 - 1.025 [facility] URINE MICROSCOPIC INDICATED YES [facility] UROBILINOGEN URINE 0.2 EU/dL 0.2 - 1.0 EU/dL [facility] UA (CLEAN/CATCH) NP/JEFFREY RO IF IND.on 02-18-2024 BILIRUBIN URINE Negative NEGATIVE [facility] BLOOD URINE Negative NEGATIVE [facility] Clarity (U) CLEAR CLEAR [facility] Color (U) LT. YELLOW YELLOW [facility] GLUCOSE URINE UA Negative NEGATIVE mg/dL [facility] Ketones Ql (U) Negative NEGATIVE mg/dL [facility] Leukocyte esterase Test strip Ql (U) Negative NEGATIVE [facility] NITRITE URINE Negative NEGATIVE [facility] pH (U) 7.5 [pH] 5.0 - 9.0 [facility] Negative NEG/TRACE mg/dL [facility] SPECIFIC GRAVITY URINE 1.015 1.005 - 1.025 [facility] URINE MICROSCOPIC INDICATED NO [facility] UROBILINOGEN URINE 0.2 EU/dL 0.2 - 1.0 EU/dL [facility] RPRon 02-08-2024 Reagin Ab RPR Ql (S) Non-Reactive Normal NONREACTIVE A [facility] Comment on above: Result Comment: Test ing performed at [place] [address] Performed By: #### C TNG #### [place] [address] CBCon 02-07-2024 ABSOLUTE BAS 0.0 10*3/uL Normal 0.0-0.2 [facility] Comment on above: Result Comment: Test ing performed at [place] [address] Performed By: #### C TNG #### [place] [address] ABSOLUTE EOS 0.2 10*3/uL Normal 0.0-0.7 [facility] Comment on above: Performed By: #### C TNG #### [place] [address] ABSOLUTE NEUTROPHIL COUNT 8.6 10*3/uL High 1.4-6.5 [facility] Comment on above: Performed By: #### C TNG #### [place] [address] Basophils/100 WBC (Bld) 0.4 % Normal 0.0-2.0 [facility] Comment on above: Performed By: #### C TNG #### [place] [address] DTYPE AUTO DIFF Normal [facility] Comment on above: Performed By: #### C TNG #### [place] [address] Eosinophils/100 WBC (Bld) 2.0 % Normal 0.0-11.0 [facility] Comment on above: Performed By: #### C TNG #### [place] [address] Lymphocytes (Bld) [#/Vol] 1.4 10*3/uL Normal 1.2-3.4 [facility] Comment on above: Performed By: #### C TNG #### Testing performed at [address] [address] Lymphocytes/100 WBC (Bld) 12.9 % Low 20.0-55.0 [facility] Comment on above: Performed By: #### C TNG #### Testing performed at [address] [address] Monocytes (Bld) [#/Vol] 0.8 10*3/uL High 0.0-0.7 [facility] Comment on above: Performed By: #### C TNG #### Testing performed at [address] [address] Monocytes/100 WBC (Bld) 7.5 % Normal 0.0-10.0 [facility] Comment on above: Performed By: #### C TNG #### Testing performed at [address] [address] Neutrophils/100 WBC (Bld) 77.2 % High 37.0-75.0 [facility] Comment on above: Performed By: #### C TNG #### Testing performed at [address] [address] Erythrocyte distribution width (RBC) [Ratio] 14.1 % Normal 11.5-14.5 [facility] Comment on above: Performed By: #### C TNG #### Testing performed at [address] [address] Hematocrit (Bld) [Volume fraction] 35.9 % Low 36.0-48.0 [facility] Comment on above: Performed By: #### C TNG #### Testing performed at [address] [address] Hemoglobin (Bld) [Mass/Vol] 11.6 g/dL Low 12.0-16.0 [facility] Comment on above: Performed By: #### C TNG #### Testing performed at [address] [address] MCH (RBC) [Entitic mass] 28.1 pg Normal 26.0-35.0 [facility] Comment on above: Performed By: #### C TNG #### Testing performed at [address] [address] MCHC (RBC) [Mass/Vol] 32.3 g/dL Normal 27.0-37.0 [facility] Comment on above: Performed By: #### C TNG #### Testing performed at [address] [address] MCV (RBC) [Entitic vol] 87.1 fL Normal 80.0-100.0 [facility] Comment on above: Performed By: #### C TNG #### Testing performed at [address] [address] Platelet mean volume (Bld) [Entitic vol] 8.5 fL Normal 7.4-11.0 [facility] Comment on above: Performed By: #### C TNG #### Testing performed at [address] [address] Platelets (Bld) [#/Vol] 246 10*3/uL Normal 130-400 [facility] Comment on above: Performed By: #### C TNG #### Testing performed at [address] [address] RBC (Bld) [#/Vol] 4.12 10*6/uL Normal 4.0-5.4 [facility] Comment on above: Performed By: #### C TNG #### Testing performed at [address] [address] WBC (Bld) [#/Vol] 11.1 10*3/uL High 3.6-11.0 [facility] Comment on above: Performed By: #### C TNG #### Testing performed at [address] [address] CBC, EDIF, PLATELETon 2023 ABSOLUTE BASOPHIL COUNT 0.0 10*3/uL 0.0 - 0.2 10*3/uL [facility] Comment on above: Testing performed at [place], [place] [address] Basophils/100 WBC (Bld) 0.4 % 0.0 - 2.0 % [facility] Differential cell count method Nom (Bld) AUTO DIFF % [facility] Eosinophils (Bld) [#/Vol] 0.2 10*3/uL 0.0 - 0.7 10*3/uL [facility] Eosinophils/100 WBC (Bld) 2.0 % 0.0 - 11.0 % [facility] Erythrocyte distribution width (RBC) [Ratio] 14.1 % 11.5 - 14.5 % [facility] Hematocrit (Bld) [Volume fraction] 35.9 % Low 36.0 - 48.0 % [facility] Hemoglobin (Bld) [Mass/Vol] 11.6 g/dL Low [facility] Interpretation and review of laboratory results Abnormal [facility] Lymphocytes (Bld) [#/Vol] 1.4 10*3/uL 1.2 - 3.4 10*3/uL [facility] Lymphocytes/100 WBC (Bld) 12.9 % Low 20.0 - 55.0 % [facility] MCH (RBC) [Entitic mass] 28.1 pg 26.0 - 35.0 PG [facility] MCHC (RBC) [Mass/Vol] 32.3 g/dL [facility] MCV (RBC) [Entitic vol] 87.1 fL [facility] Monocytes (Bld) [#/Vol] 0.8 10*3/uL High 0.0 - 0.7 10*3/uL [facility] Monocytes/100 WBC (Bld) 7.5 % 0.0 - 10.0 % [facility] Neutrophils (Bld) [#/Vol] 8.6 10*3/uL High 1.4 - 6.5 10*3/uL [facility] Neutrophils/100 WBC (Bld) 77.2 % High 37.0 - 75.0 % [facility] Platelet mean volume (Bld) [Entitic vol] 8.5 fL [facility] Platelets (Bld) [#/Vol] 246 10*3/uL 130 - 400 10*3/uL [facility] RBC (Bld) [#/Vol] 4.12 10*6/uL 4.0 - 5.4 10*6/uL [facility] WBC (Bld) [#/Vol] 11.1 10*3/uL High 3.6 - 11.0 10*3/uL [facility] GLUCOSE POST LOADINGon 02-06 Glucose 1 Hr post 50 g glucose PO [Mass/Vol] 70 mg/dL [facility] Comment on above: Testing performed at [address] GLUCOSE POST LOADING 70 MG/DL Normal 65-140 [facility] Comment on above: Result Comment: Test ing performed at [place] [address] Performed By: #### C TNG #### Testing performed at [facility] [address] [place] [address] Family Medicine Office/Clini c Noteon 01-25-2024 Family [...] Ordered: New Preventive 18 to 39 years [address] 3. BMI 27.0-27.9,adult (Z68.27: Body mass index [BMI] 27.0-27.9, adult) Pt is 27 weeks Ordered: New Preventive 18 to 39 years 4. Overweight (BMI 25.0-29.9) (E66.3: Overweight) see above Ordered: New Preventive 18 to 39 years [address] Follow-up No qualifying data available Problem List/Past [...] diphtheria/pertussis , acel/tetanus adult 06/02/2021 Recorded Normal [facility] Comment on above: Result Comment: Elec tronically Signed By: Kalani Calvo\.br\Date and Time Signed: 01/25/24 10:29 EST AFP TETRAon 11-14-2023 AFP MOM 1.01 [facility] AFP VALUE 36.1 [facility] Comment on above: Result Comment: Unit : ng/mL COMMENT: Comment [facility] Comment on above: Result Comment: (NOT E) Lorie Nieto, Ph.D., [facility] Director References: Available Upon Request. Multiples Of Median Cutoffs Abbreviation Definitions For AFP Elevations IDD- Insulin Dep Diabetes [place] 2.5 Black 2.8 OSBR- Open Spina Bifida IDD 2.0 Twins 4.5 Risk DSR Cutoff 1:270 DSR- Down Syndrome Risk T18 Cutoff 1:100 T18- Trisomy 18 For further inquiries contact [facility] at [phone]. This test was developed and its performance characteristics determined by [facility]. It has not been cleared or approved by the Food and Drug Administration. PERFORMED AT [facility] RTP MIGUEL ANGEL MOM 0.69 [facility] MIGUEL ANGEL VALUE 117.78 [facility] Comment on above: Result Comment: Unit : pg/mL DSR (2ND TRIM.) 1 [place] [address] [facility] DSR (BY AGE) 1 [place] [address]3 [facility] GEST AGE BASED ON COLLECTION DATE 16.3 [facility] Comment on above: Result Comment: Unit : WEEKS CORRECTED ON 11/13 AT 0106: PREVIOUSLY REPORTED 16.2 UNIT:WEEKS GEST. AGE BASED ON SEBASTIAN [facility] Comment on above: Result Comment: 04/08 CORRECTED ON 11/13 AT 0106: PREVIOUSLY REPORTED SEBASTIAN ULTRASOUND HCG MOM 0.80 [facility] HCG VALUE [address] [facility] Comment on above: Result Comment: Unit : mIU/mL INSULIN DEP DIABETES Comment [facility] Comment on above: Result Comment: Not provided. CORRECTED ON 11/13 AT 0106: PREVIOUSLY REPORTED NO INTERPRETATION Comment [facility] Comment on above: Result Comment: [...] identifies 60% of Trisomy 18 pregnancies. The [employer] recommends amniocentesis be offered to women age 35 and older. Recalculations are not recommended when gestational dating by LMP and ultrasound are within 10 days. MATERNAL AGE AT SEBASTIAN 21.8 [facility] Comment on above: Result Comment: Unit : yr CORRECTED ON 11/13 AT 0106: PREVIOUSLY REPORTED 21 UNIT:YR MULTIPLE GESTATION No Normal [facility] Comment on above: Result Comment: KENNETH ECTED ON 11/13 AT 0106: PREVIOUSLY REPORTED NO OSBR RISK 1 [place] [address] [facility] RACE Comment Normal [facility] Comment on above: Result Comment: Not provided. CORRECTED ON 11/13 AT 0106: PREVIOUSLY REPORTED RESULTS Report [facility] T18 (BY AGE) 1:4412 [facility] T18 RISK Not increased [facility] TEST RESULTS Negative [facility] UE3 MOM 1.04 [facility] UE3 VALUE 0.95 [facility] Comment on above: Result Comment: Unit : ng/mL AFP TETRAon 11-11-2023 WEIGHT 141 [facility] Comment on above: Result Comment: Unit : lbs HEMOGLOBIN A1Con 11-11-2023 Glucose [Mass/Vol] 97 mg/dL [facility] Comment on above: Testing performed at [place] [address] HbA1c (Bld) [Mass fraction] 5.0 % 0 - 6 % [facility] Comment on above: NORMAL <5.7% PREDIABETES 5.7-6.4% DIABETES 6.5% OR HIGHER [facility] Glucose [Mass/Vol] 97 mg/dL [facility] Comment on above: Result Comment: Test ing performed at [place] [address] Performed By: #### C TNG #### [place] [address] HbA1c (Bld) [Mass fraction] 5.0 % Normal 0-6 [facility] Comment on above: Result Comment: NORMAL <5.7% PREDIABETES 5.7-6.4% DIABETES 6.5% OR HIGHER Performed By: #### C TNG #### Testing performed at [place] [id number] PA IG,CT NG,RFX HPV ASCUon 0 10-20-2023 CHLAMYDIA,NUC. ACID AMP Negative [facility] Comment on above: Result Comment: Refe rence range: Negative PERFORMED AT [facility] DIAGNOSIS: Comment [facility] Comment on above: Result Comment: NEGA TIVE FOR INTRAEPITHELIAL LESION OR MALIGNANCY. PERFORMED AT [facility] GONOCOCCUS,NUC. ACID AMP Negative [facility] Comment on above: Result Comment: Refe rence range: Negative (NOTE) Source.............Cervix;Endocervix Other.............. No. of containers..01 ThinPrep Vial PERFORMED AT [facility] NOTE: Comment [facility] Comment on above: Result Comment: (NOT E) The Pap smear is a screening test designed to aid in the detection of premalignant and malignant conditions of the uterine cervix. It is not a diagnostic procedure and should not be used as the sole means of detecting cervical cancer. Both false-positive and false-negative reports do occur. PERFORMED AT [facility] PERFORMED BY: Comment [facility] Comment on above: Result Comment: Linda Traore, Puff Ironer (ASCP) PERFORMED AT [facility] SPECIMEN ADEQUACY: Comment [facility] Comment on above: Result Comment: (NOT E) Satisfactory for evaluation. Endocervical and/or squamous metaplastic cells (endocervical component) are present. PERFORMED AT [facility] TEST METHODOLOGY: Comment [facility] Comment on above: Result Comment: (NOT E) This liquid based ThinPrep(R) pap test was screened with the use of an image guided system. PERFORMED AT [facility] RPRon 09-27-2023 Reagin Ab RPR Ql (S) Non-Reactive Normal NONREACTIVE A [facility] Comment on above: Result Comment: Test ing performed at [place] [address] Performed By: #### A CBC, ARPR, RUBL, GHIV #### Testing performed at [facility] [address] [place] [address] #### LVZG #### Testing performed at [facility] [address] [facility] [place] [address] [place] [address] RUBELLA SCREENon 09-27-2023 RUBELLA SCREEN Negative Abnormal POSITIVE [facility] Comment on above: Result Comment: Test ing performed at [place] [address] Performed By: #### A CBC, ARPR, RUBL, GHIV #### Testing performed at [address] [address] #### LVZG #### Testing performed at [facility] [address] [facility] [place] [address] [place] [address] US 1st Trimesteron 09-27-2023 US 1st Trimester [...] corresponding gestational age +/- 1 week are: [place] Rump Length: 2.8 cm Composite Ultrasound Age: [...] Size = Dates Uterus Position Anteverted Normal [facility] ABO/Rhon 09-26-2023 ABO/Rh Positive Invalid Interpretation Code [facility] Comment on above: Performed By: #### 2 [id number] #### [facility] [address] [place] [address] BLOOD BANKOrdered By: Cherelle Flaherty on 09-26-2023 ABO/Rh Interp Positive Invalid Interpretation Code [facility] [place] Subsection BhCG Quanton 09-26-2023 HCG.beta subunit Qn [id number] m[IU]/mL High 1-3 [facility] Comment on above: Result Comment: 'F N ON < 1 - 3' ' 0.2 - 1 WEEK = 5 TO 50' ' 1 - 2 WEEKS = 50 - 500' ' 2 - 3 WEEKS = 100 - 5000' ' 3 - 4 WEEKS = 500 - [address]' ' 4 - 5 WEEKS = 1000 - [address]' ' 5 - 6 WEEKS = [address] - 480663' ' 6 - 8 WEEKS = [address] - 418834' ' 8 - 12 WEEKS = [address] - 846533' Performed By: #### 2 [id number] #### [facility] [address] [place] [address] CBC w/ Auto Diffon 4 Basophils/100 WBC (Bld) 0.6 % Normal 0.0-2.0 [facility] Comment on above: Performed By: #### 2 [id number] #### [facility] [address] [place] [address] Basophils/Leukocytes Auto (Bld) [Pure # fraction] 0.1 E9/L Normal 0.0-0.2 [facility] Comment on above: Performed By: #### 2 [id number] #### [facility] [address] [place] [address] Eosinophils (Bld) [#/Vol] 0.1 E9/L Normal 0.0-0.5 [facility] Comment on above: Performed By: #### 2 [id number] #### [facility] [address] [place] [address] Eosinophils/100 WBC (Bld) 1.0 % Normal 0.0-8.0 [facility] Comment on above: Performed By: #### 2 [id number] #### [facility] [address] [place] [address] Erythrocyte distribution width (RBC) [Ratio] 13.7 % Normal 10.9-14.2 [facility] Comment on above: Performed By: #### 2 [id number] #### [facility] [address] [place] [address] Hematocrit (Bld) [Volume fraction] 36.6 % Normal 34.0-46.0 [facility] Comment on above: Performed By: #### 2 [id number] #### [facility] [address] [place] [address] Hemoglobin (Bld) [Mass/Vol] 12.6 g/dL Normal 12.0-16.0 [facility] Comment on above: Performed By: #### 2 [id number] #### [facility] [address] [place] [address] Lymphocytes (Bld) [#/Vol] 1.1 E9/L Normal 1.0-4.0 [facility] Comment on above: Performed By: #### 2 [id number] #### [facility] [address] [place] [address]83 Lymphocytes/100 WBC (Bld) 12.2 % Low 14.0-50.0 [facility] Comment on above: Performed By: #### 2 [id number] #### [facility] [address] [place] [address] MCH (RBC) [Entitic mass] 29.3 pg Normal 27.0-34.0 [facility] Comment on above: Performed By: #### 2 [id number] #### [facility] [address] [place] [address] MCHC (RBC) [Mass/Vol] 34.4 g/dL Normal 31.4-36.0 [facility] Comment on above: Performed By: #### 2 [id number] #### [facility] [address] [place] [address] MCV (RBC) [Entitic vol] 85.1 fL Normal 80.0-100.0 [facility] Comment on above: Performed By: #### 2 [id number] #### [facility] [address] [place] [address] Monocytes (Bld) [#/Vol] 0.8 E9/L Normal 0.2-1.0 [facility] Comment on above: Performed By: #### 2 [id number] #### [facility] [address] [place] [address] Neutrophils (Bld) [#/Vol] 7.1 E9/L Normal 2.0-7.5 [facility] Comment on above: Performed By: #### 2 [id number] #### [facility] [address] [place] [address] Neutrophils/100 WBC (Bld) 77.8 % High 36.0-75.0 [facility] Comment on above: Performed By: #### 2 [id number] #### [facility] [address] [place] [address] Platelet 265.0 E9/L Normal 150.0-500.0 [facility] Comment on above: Performed By: #### 2 [id number] #### [facility] [address] [place] [address] Platelet mean volume (Bld) [Entitic vol] 8.0 fL Normal 6.4-10.8 [facility] Comment on above: Performed By: #### 2 [id number] #### [facility] [address] [place] [address] RBC (Bld) [#/Vol] 4.3 E12/L Normal 4.3-5.9 [facility] Comment on above: Performed By: #### 2 [id number] #### [facility] [address] [place] [address] WBC corrected for nucl RBC Auto (Bld) [#/Vol] 9.1 E9/L Normal 4.0-11.0 [facility] Comment on above: Performed By: #### 2 [id number] #### [facility] [address] [place] [address] CHEMISTRYOrdered By: SYSTEM SYSTEM on 09-26-2023 Albumin [...] mg/dL Re misol Chem HCG.beta subunit Qn [id number] m[IU]/mL High 1 - 3 mIU/m L [facility] Comment on above: Result Comment: 'F N ON < 1 - 3' ' 0.2 - 1 WEEK = 5 TO 50' ' 1 - 2 WEEKS = 50 - 500' ' 2 - 3 WEEKS = 100 - 5000' ' 3 - 4 WEEKS = 500 - 77129' ' 4 - 5 WEEKS = 1000 - 38511' ' 5 - 6 WEEKS = 80858 - 655342' ' 6 - 8 WEEKS = 15584 - 000409' ' 8 - 12 WEEKS = 12013 - 313783' Lipase [Catalytic activity/Vol] 23 U/L Normal 13 [...] 09-26-2023 Albumin [Mass/Vol] 4.4 g/dL Normal 3.3-5.0 [facility] Comment on above: Performed By: #### 2 [id number] #### [facility] [address] [place] [address] Albumin/Globulin (S) [Mass conc ratio] 1.5 Normal 1.1-2.2 [facility] Comment on above: Performed By: #### 2 [id number] #### [facility] [address] [place] [address] ALP [Catalytic activity/Vol] 52 Int._Unit/L Normal 21-98 [facility] Comment on above: Performed By: #### 2 [id number] #### [facility] [address] [place] [address] ALT No additional P-5'-P [Catalytic activity/Vol] 26 Int._Unit/L Normal 6-46 [facility] Comment on above: Performed By: #### 2 [id number] #### [facility] [address] [place] [address] Anion gap [Moles/Vol] 11 mmol/L Normal 6-16 [facility] Comment on above: Performed By: #### 2 [id number] #### [facility] [address] [place] [address] AST [Catalytic activity/Vol] 17 Int._Unit/L Normal 5-43 [facility] Comment on above: Performed By: #### 2 [id number] #### [facility] [address] [place] [address] Bilirubin [Mass/Vol] 0.4 mg/dL Normal 0.0-1.1 [facility] Comment on above: Performed By: #### 2 [id number] #### [facility] [address] [place] [address] Calcium [Mass/Vol] 9.6 mg/dL Normal 8.9-11.1 [facility] Comment on above: Performed By: #### 2 [id number] #### [facility] [address] [place] [address] Chloride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 criteria set forth by [facility]. Glucose Ql (U) Negative Normal [...] When: In 3 months Where: [address] [place] [phone] Medications What How Much When Instructions New aripiprazole (aripiprazole 5 mg Tab) 1 Tablets By Mouth Every day Refills: 2 Pickup at [id number] Unchanged lactobacillus acidophilus (Acidophilus Probiotic Blend) Pharmacy Information [id number]: [address] [place], [place] [phone] Allergies No Known Medication Allergies Problems Ongoing - Any problem that you are currently receiving treatment for. BMI 23.0-23.9, adult Patient Survey You may receive a survey via text or e-mail asking about your office visit. Please share your experience with us by completing your survey. We appreciate your feedback and thank you for choosing us for your care. Normal [facility] ED Note-Physicianon 08-31-19 ED Note-Physician [id number] #1.00TIFF Normal [facility] CBC with Diffon 08-30-2023 Abs. Basophil 0.04 k/uL Normal 0.00-0.20 [facility] Comment on above: Performed By: #### C DP #### [facility] [address] [place] [address] Dolly Operator: Gio Peña MD Abs.Imm.Granulocyte 0.02 k/uL Normal 0.00-0.30 [facility] Comment on above: Performed By: #### C DP #### [facility] [address] [place] [address] Dolly Operator: Gio Peña MD Abs.Neutrophil (Seg) 4.62 k/uL Normal 2.5-7.0 [facility] Comment on above: Performed By: #### C DP #### [facility] [address] [place] [id number] Dolly Operator: Gio Peña MD Basophils/100 WBC (Bld) 1 % Normal 0-2 [facility] Comment on above: Performed By: #### C DP #### [facility] [address] [place] [address] Dolly Operator: Gio Peña MD Eosinophils (Bld) [#/Vol] 0.09 10*3/uL Normal 0.00-0.40 [facility] Comment on above: Performed By: #### C DP #### [facility] [address] [place] [address] Dolly Operator: Gio Peña MD Eosinophils/100 WBC (Bld) 1 % Normal 0-5 [facility] Comment on above: Performed By: #### C DP #### [facility] [address] [place], [place] [id number] Dolly Operator: Gio Peña MD Erythrocyte distribution width (RBC) [Ratio] 12.8 % Normal 12.1-15.2 [facility] Comment on above: Performed By: #### C DP #### [facility] [address] [place] [address] Dolly Operator: Gio Peña MD Hematocrit (Bld) [Volume fraction] 38.0 % Normal 36.0-46.0 [facility] Comment on above: Performed By: #### C DP #### [facility] [address] [place] [address] Dolly Operator: Gio Peña MD Hemoglobin (Bld) [Mass/Vol] 12.5 g/dL Normal 12.0-16.0 [facility] Comment on above: Performed By: #### C DP #### [facility] [address] [place] [address] Dolly Operator: Gio Peña MD Immature granulocytes/100 WBC (Bld) 0 % Normal 0-5 [facility] Comment on above: Performed By: #### C DP #### [facility] [address] [place] [address] Dolly Operator: Gio Peña MD Lymphocytes (Bld) [#/Vol] 1.87 10*3/uL Normal 1.00-4.80 [facility] Comment on above: Performed By: #### C DP #### [facility] [address] [place] [id number] Dolly Operator: Gio Peña MD Lymphocytes/100 WBC (Bld) 26 % Normal 15-40 [facility] Comment on above: Performed By: #### C DP #### [facility] [address] [place] [address] Dolly Operator: Gio Peña MD MCH (RBC) [Entitic mass] 28.2 pg Normal 26.0-34.0 [facility] Comment on above: Performed By: #### C DP #### [facility] [address] [place] [address] Dolly Operator: Gio Peña MD MCHC (RBC) [Mass/Vol] 32.9 g/dL Normal 31.0-37.0 [facility] Comment on above: Performed By: #### C DP #### [facility] [address] [place] [address] Dolly Operator: Gio Peña MD MCV (RBC) [Entitic vol] 85.8 fL Normal 80.0-100.0 [facility] Comment on above: Performed By: #### C DP #### [facility] [address] [place] [id number] Dolly Operator: Gio Peña MD Monocytes (Bld) [#/Vol] 0.55 10*3/uL Normal 0.00-1.00 [facility] Comment on above: Performed By: #### C DP #### [facility] [address] [place] [id number] Dolly Operator: Gio Peña MD Monocytes/100 WBC (Bld) 8 % Normal 4-8 [facility] Comment on above: Performed By: #### C DP #### [facility] [address] [place], [place] [phone] Dolly Operator: Gio Peña MD Neutrophil (Seg) 64 % Normal 47-[address] [facility] Comment on above: Performed By: #### C DP #### [facility] [address] [place], [place] [id number] Dolly Operator: Gio Peña MD Platelet mean volume (Bld) [Entitic vol] 9.7 fL Normal 6.0-12.0 [facility] Comment on above: Performed By: #### C DP #### [facility] [address] [place] [address] Dolly Operator: Gio Peña MD Platelets (Bld) [#/Vol] 265 10*3/uL Normal 140-450 [facility] Comment on above: Performed By: #### C DP #### [facility] [address] [place], [place] [id number] Dolly Operator: Gio Peña MD RBC (Bld) [#/Vol] 4.43 10*6/uL Normal 4.00-5.20 [facility] Comment on above: Performed By: #### C DP #### [facility] [address] [place], [place] [phone] (298) Dolly Operator: Gio Peña MD WBC (Bld) [#/Vol] 7.2 10*3/uL Normal 4.5-13.5 [facility] Comment on above: Performed By: #### C DP #### [facility] [address] [place], [place] [id number] Dolly Operator: Gio Peña MD HCG, Quanton 08-30-2023 HCG, Quant 43352.0 mIU/mL High <5 [facility] Comment on above: Result Comment: Non-preg premeno <=5 Postmeno <=8 Male <=3 If HCG results do not concur with clinical observations, additional testing to confirm results is recommended. Performed By: #### B HCG #### [facility] [address] [place] [address] Dolly Operator: Gio Peña MD Type + Screenon 08-30-2023 Type + Screen Sample Expiration 09/02/2023,2359 ABO/Rh(D) O POSITIVE Antibody Screen NEGATIVE Normal [facility] Comment on above: Performed By: #### T YS #### [facility] [address] [place] [address] Dolly Operator: Gio Peña MD Family Medicine Office/Clini c [...] side effects, signs (more content not included)... [facility] Comment on above: Result Comment: Elec tronically Signed By: Pari Underwood PA-C\.br\Date and Time Signed: 08/19/23 20:54 EDT\.br\Electronically Co-Signed By: Julia Rodriguez\.br\Date and Time Co-Signed: 08/13/23 17:18 EDT [employer] 08-16-2023 Forms [id number]# 1.00TIFF [facility] Ambulatory Visit Summaryon 0 08-13-2023 Ambulatory Visit [...] AM EDT With: Pari Underwood PA-C Where: [facility] [place] Normal [facility] Patient Educationon 08-13-19 Patient Education Mental [...] pray, or go to a place of buddhist. ? Do some deep breathing. To do [...] or salt (sodium). General instructions ? Take ppsh-wfd-tsulcrv and prescription medicines only as told by [...] [facility] (more content not included)... Normal [facility] CHLAMYDIA/GCon 08-04-2023 CHLAMYDIA TRACH Not detected Normal NOT DETECTED [facility] Comment on above: Performed By: #### C TNG #### [place] [address] N.GONORRHOEAE Not detected Normal NOT DETECTED [facility] Comment on above: Result Comment: TEST ING PERFORMED BY PCR Testing performed at [place] [address] Performed By: #### C TNG #### [place] [address] CHLAMYDIA/GONOCOCCUS, NAAon 08-04-2023 CHLAMYDIA TRACHOMATIS Not detected NOT DETECTED [facility] NEISSERIA GONORRHOEAE Not detected NOT DETECTED [facility] Comment on above: TESTING PERFORMED BY PCR Testing performed at [address] TRICH VAGon 08-04-2023 TRICH VAG Not detected Normal NOT DETECTED [facility] Comment on above: Result Comment: TEST ING PERFORMED BY PCR Testing performed at [place] [address] Performed By: #### A TV #### [place] [address] TRICHOMONAS VAGINALIS, NAAon 08-04-2023 T. vaginalis rRNA TELMA+probe Ql (Unsp spec) Not detected NOT DETECTED [facility] Comment on above: TESTING PERFORMED BY PCR Testing performed at [address] CHLAMYDIA/GCon 04-16-2023 CHLAMYDIA TRACH Not detected Normal NOT DETECTED [facility] Comment on above: Performed By: #### C TNG #### [place] [address] N.GONORRHOEAE Not detected Normal NOT DETECTED [facility] Comment on above: Result Comment: TEST ING PERFORMED BY PCR Testing performed at [place] [address] Performed By: #### C TNG #### [place] [address] CHLAMYDIA/GONOCOCCUS, NAAon 04-16-2023 CHLAMYDIA TRACHOMATIS Not detected NOT DETECTED [facility] NEISSERIA GONORRHOEAE Not detected NOT DETECTED [facility] Comment on above: TESTING PERFORMED BY PCR Testing performed at [address] TRICH VAGon 04-16-2023 TRICH VAG Not detected Normal NOT DETECTED [facility] Comment on above: Result Comment: TEST ING PERFORMED BY PCR Testing performed at [place] [address] Performed By: #### C TNG #### [place] [address] TRICHOMONAS VAGINALIS, NAAon 04-16-2023 T. vaginalis rRNA TELMA+probe Ql (Unsp spec) Not detected NOT DETECTED [facility] Comment on above: TESTING PERFORMED BY PCR Testing performed at [address] XR RIBS WITH CHEST, RIGHTon 10-24-2022 [...] fractures identified. IMPRESSION: No acute findings. Normal [facility] CHLAMYDIA/GCon 10-23-2022 CHLAMYDIA TRACH Not detected Normal NOT DETECTED [facility] Comment on above: Performed By: #### C TNG #### [place] [address] N.GONORRHOEAE Not detected Normal NOT DETECTED [facility] Comment on above: Result Comment: TEST ING PERFORMED BY PCR Testing performed at [place] [address] Performed By: #### C TNG #### [place] [address] CHLAMYDIA/GONOCOCCUS, NAAon 10-23-2022 CHLAMYDIA TRACHOMATIS Not detected NOT DETECTED [facility] NEISSERIA GONORRHOEAE Not detected NOT DETECTED [facility] Comment on above: TESTING PERFORMED BY PCR Testing performed at [address] TRICH VAGon 10-23-2022 TRICH VAG Not detected Normal NOT DETECTED [facility] Comment on above: Result Comment: TEST ING PERFORMED BY PCR Testing performed at [place] [address] Performed By: #### A TV #### [place] [address] TRICHOMONAS VAGINALIS, NAAon 10-23-2022 T. vaginalis rRNA TELMA+probe Ql (Unsp spec) Not detected NOT DETECTED [facility] Comment on above: TESTING PERFORMED BY PCR Testing performed at [address] CBC, EDIF, PLATELETon 2021 ABSOLUTE BASOPHIL COUNT 0.0 10*3/uL 0.0 - 0.2 10*3/uL [facility] Comment on above: Testing performed at [place] [address] Basophils/100 WBC (Bld) 0.5 % 0.0 - 2.0 % [facility] Differential cell count method Nom (Bld) AUTO DIFF % [facility] Eosinophils (Bld) [#/Vol] 0.20 10*3/uL 0.0 - 0.7 10*3/uL [facility] Eosinophils/100 WBC (Bld) 1.9 % 0.0 - 11.0 % [facility] Erythrocyte distribution width (RBC) [Ratio] 13.1 % 11.5 - 14.5 % [facility] Hematocrit (Bld) [Volume fraction] 32.9 % Low 36.0 - 48.0 % [facility] Hemoglobin (Bld) [Mass/Vol] 11.5 g/dL Low [facility] Interpretation and review of laboratory results Abnormal [facility] Lymphocytes (Bld) [#/Vol] 1.50 10*3/uL 1.2 - 3.4 10*3/uL [facility] Lymphocytes/100 WBC (Bld) 17.3 % Low 20.0 - 55.0 % [facility] MCH (RBC) [Entitic mass] 31.1 pg 26.0 - 35.0 PG [facility] MCHC (RBC) [Mass/Vol] 35.0 g/dL [facility] MCV (RBC) [Entitic vol] 89.0 fL [facility] Monocytes (Bld) [#/Vol] 0.8 10*3/uL High 0.0 - 0.7 10*3/uL [facility] Monocytes/100 WBC (Bld) 8.6 % 0.0 - 10.0 % [facility] Neutrophils (Bld) [#/Vol] 6.3 10*3/uL 1.4 - 6.5 10*3/uL [facility] Neutrophils/100 WBC (Bld) 71.7 % 37.0 - 75.0 % [facility] Platelet mean volume (Bld) [Entitic vol] 8.4 fL [facility] Platelets (Bld) [#/Vol] 226 10*3/uL 130.0 - 400.0 10*3/uL [facility] RBC (Bld) [#/Vol] 3.69 10*6/uL Low 4.0 - 5.4 10*6/uL [facility] WBC (Bld) [#/Vol] 8.8 10*3/uL 3.6 - 11.0 10*3/uL [facility] GLUCOSE POST LOADINGon 06-02 Glucose 1 Hr post 50 g glucose PO [Mass/Vol] 93 mg/dL [facility] Comment on above: Testing performed at [address] COLPOSCOPYon 03-13-2021 Doyle Amaro MD 03/13/2021 [...] as needed for mild to moderate pain. [facility] Narrative [Interpretat ion] Study observation general USon 02-06-2021 : 1. Single of 11 weeks and 5 days. 2. heart rate of 168 bpm. 3. US SEBASTIAN 08/23/2021, which is inconsistent with SEBASTIAN by LMP and should be changed. [facility] REFERRING PHYSICIAN: Dr. Amaro TECHNOLOGIST: Ashley Acosta PROCEDURE DATE : 02/06/2021 INDICATIONS: Early gestational, dating LMP 11/09/2020, SEBASTIAN 08/16/2021 PROCEDURE DETAILS A single was noted within the uterus. heart rate of 168 bpm. The CRL measures 5.03 cm , 11 weeks 5 days. FINAL [facility] Radiology Study observation (narrative) [facility] ABO/RH(D) TYPINGon 1 ABO and Rh group Nom (Bld ) Positive [facility] ABO and Rh group Nom (Bld ) Testing performed at [place], [place] [address] [facility] ANTIBODY SCREENon 01-14-2021 Blood group antibody screen Ql Negative [facility] EXPIRATION DATE 01/17/2021,2359 [facility] BIO-IVT Group [facility] EXPIRATION DATE Testing performed at [place], [place] [address] [facility] CBC, EDIF, PLATELETon 2020 ABSOLUTE BASOPHIL COUNT 0.0 10*3/uL 0.0 - 0.2 10*3/uL [facility] Comment on above: Testing performed at [facility], [place], [place] [address] Basophils/100 WBC (Bld) 0.6 % 0.0 - 2.0 % [facility] Differential cell count method Nom (Bld) AUTO DIFF % [facility] Eosinophils (Bld) [#/Vol] 0.10 10*3/uL 0.0 - 0.7 10*3/uL [facility] Eosinophils/100 WBC (Bld) 1.3 % 0.0 - 11.0 % [facility] Erythrocyte distribution width (RBC) [Ratio] 13.5 % 11.5 - 14.5 % [facility] Hematocrit (Bld) [Volume fraction] 35.9 % Low 36.0 - 48.0 % [facility] Hemoglobin (Bld) [Mass/Vol] 12.2 g/dL [facility] Interpretation and review of laboratory results Abnormal [facility] Lymphocytes (Bld) [#/Vol] 2.40 10*3/uL 1.2 - 3.4 10*3/uL [facility] Lymphocytes/100 WBC (Bld) 34.3 % 20.0 - 55.0 % [facility] MCH (RBC) [Entitic mass] 28.7 pg 26.0 - 35.0 PG [facility] MCHC (RBC) [Mass/Vol] 33.9 g/dL [facility] MCV (RBC) [Entitic vol] 84.7 fL [facility] Monocytes (Bld) [#/Vol] 0.7 10*3/uL 0.0 - 0.7 10*3/uL [facility] Monocytes/100 WBC (Bld) 9.7 % 0.0 - 10.0 % [facility] Neutrophils (Bld) [#/Vol] 3.8 10*3/uL 1.4 - 6.5 10*3/uL [facility] Neutrophils/100 WBC (Bld) 54.1 % 37.0 - 75.0 % [facility] Platelet mean volume (Bld) [Entitic vol] 9.3 fL [facility] Platelets (Bld) [#/Vol] 289 10*3/uL 130.0 - 400.0 10*3/uL [facility] RBC (Bld) [#/Vol] 4.23 10*6/uL 4.0 - 5.4 10*6/uL [facility] WBC (Bld) [#/Vol] 7.1 10*3/uL 3.6 - 11.0 10*3/uL [facility] HIV 1+2 Ab+HIV1 p24 Ag IA Ql on 01-14-2021 HIV 1+2 Ab IA Ql Non-Reactive NONREACTIVE [facility] Comment on above: Testing performed at [place] [id number] [facility] RAPID TOX SCREEN WITH RELEX TO DRUGMCon 01-14-2021 Amphetamine (U) [Mass/Vol] Negative NEGATIVE NG/ML [facility] Comment on above: <500 ng/ml CUTOFF Barbiturates Screen Ql (U) Negative NEGATIVE NG/ML [facility] Comment on above: <200 ng/ml CUTOFF Benzodiazepines Ql (U) Negative NEGATIVE NG/ML [facility] Comment on above: <150 ng/ml CUTOFF Benzoylecgonine Ql (U) Negative NEGATIVE NG/ML [facility] Comment on above: <150 ng/ml CUTOFF Buprenorphine Ql (U) Negative NEGATIVE NG/ML [facility] Comment on above: <10 ng/ml CUTOFF Testing performed at [place] [address] Cannabinoids Screen Ql (U) Positive Abnormal NEGATIVE NG/ML [facility] Comment on above: <50 ng/ml CUTOFF *Unconfirmed Screening Result* Unconfirmed screening results are to be used only for medical treatment purposes. Interpretation and review of laboratory results Abnormal [facility] Methadone Screen Ql (U) Negative NEGATIVE NG/ML [facility] Comment on above: <200 ng/ml CUTOFF Methamphetamine (U) [Mass/Vol] Negative NEGATIVE NG/ML [facility] Comment on above: <500 ng/ml CUTOFF Opiates Screen Ql (U) Negative NEGATIVE NG/ML [facility] Comment on above: <100 ng/ml CUTOFF oxyCODONE Ql (U) Negative NEGATIVE NG/ML [facility] Comment on above: <100 ng/ml CUTOFF Phencyclidine Screen method >25 ng/mL Ql (U) Negative NEGATIVE NG/ML [facility] Comment on above: <25 ng/ml CUTOFF Propoxyphene+Norpropo xyphene Screen Ql (U) Negative NEGATIVE NG/ML [facility] Comment on above: <300 ng/ml CUTOFF Tricyclic antidepressants Screen Ql (U) Negative NEGATIVE NG/ML [facility] Comment on above: <300 ng/ml CUTOFF [facility] REQUEST FOR MISC LAB SENDOUT on 01-14-2021 Miscellaneous Test 1 SPECIMEN SENT TO REFERENCE LAB FOR TESTING [facility] Comment on above: [id number] CANNABINOID Testing performed at [place], [place] [address] [facility] Chlamydia/GC,DNA Ampon 08-09 Chlamydia Probe Negative [facility] Comment on above: Result Comment: CHLA [...] target. Performed By: #### S WCGP #### [employer] [address] [place] [address] Dolly Operator: Geovani Cordon MD Gonorrhea Probe Negative [facility] Comment on above: Result Comment: NEIS [...] target. Performed By: #### S WCGP #### [employer] [facility] [place] [address] Dolly Operator: Geovani Cordon MD Herpes 1+2 Molecularon 08-09 HSV-1, NAAT Negative Normal [facility] Comment on above: Result Comment: HSV- 1 DNA not detected by nucleic acid amplification Performed By: #### H BS, HSVDNA, TREP, AHCV, HIVCMB #### [employer] [address] [place] [address] Dolly Operator: Geovani Cordon MD HSV-2, NAAT Negative Normal NEG [facility] Comment on above: Result Comment: HSV- 2 DNA not detected by nucleic acid amplification Performed By: #### H BS, HSVDNA, TREP, AHCV, HIVCMB #### [facility] [place] [address] Dolly Operator: Geovani Cordon MD Vaginitis DNA Probeon 2020 [...] of vaginitis/vaginosis. Report Status FINAL 08/09/2020 Normal [facility] Comment on above: Performed By: #### V AGDNA #### [address] [address] Dolly Operator: Geovani Cordon MD [facility] [address] [place] [address] [place] [address] Dolly Operator: Gio Peña MD HIV Ag/Abon 08-08-2020 HIV Ag/Ab Non-Reactive Normal [facility] Comment on above: Result Comment: No l aboratory evidence of HIV infection. If acute HIV infection is suspected, consider testing for HIV-1 RNA. Performed By: #### H BS, HSVDNA, TREP, AHCV, HIVCMB #### [facility] [place] [facility] [place] [address] Dolly Operator: Geovani Cordon MD Hep B Surf Agon 08-08-2020 Hep B Surf Ag Non-Reactive Normal [facility] Comment on above: Performed By: #### H BS, HSVDNA, TREP, AHCV, HIVCMB #### [facility] [place] [facility] [place] [address] Dolly Operator: Geovani Cordon MD Hep C Abon 08-08-2020 Hep C Ab Non-Reactive Normal NR [facility] Comment on above: Result Comment: The [...] H BS, HSVDNA, TREP, AHCV, HIVCMB #### [employer] [facility] [place] [address] Dolly Operator: Geovani Cordon MD Herpes 1+2 Molecularon 08-08 Source: NOT REPORTED Normal [facility] Comment on above: Performed By: #### H BS, HSVDNA, TREP, AHCV, HIVCMB #### [facility] [place] [address] [place] [address] Dolly Operator: Geovani Cordon MD T.pallidum Ab Screenon 08-08 T.pallidum Ab Screen Non-Reactive Normal NR [facility] Comment on above: Result Comment: T. pallidum antibodies are not detected. There is no serological evidence of infection with T. pallidum (early primary syphilis cannot be excluded). Retest in 2-4 weeks if syphilis is clinically suspect. Performed By: #### H BS, HSVDNA, TREP, AHCV, HIVCMB #### [employer] [facility] [place], [place] [id number] Dolly Operator: Geovani Cordon MD CBC W/DIFFon 09-29-2019 ABS BASOPHILS 0.1 10*3/uL Normal 0.0-0.2 [facility] [place] Comment on above: Order Comment: No: D o not add to previous draw Performed By: #### 5 0103 #### [facility] [address] [place] [address], [facility] ABS IMM GRANS 0.0 10*3/uL Normal 0.0-0.2 [facility] [place] Comment on above: Order Comment: No: D o not add to previous draw Performed By: #### 5 0103 #### [facility] [address] [place] [address], [facility] ABS NEUTROPHILS 2.1 10*3/uL Normal 1.6-7.6 [facility] [place] Comment on above: Order Comment: No: D o not add to previous draw Performed By: #### 5 0103 #### [facility] [address] [place] [address], [facility] Basophils/100 WBC (Bld) 1.2 % High 0.0-1.0 [facility] [place] Comment on above: Order Comment: No: D o not add to previous draw Performed By: #### 5 0103 #### [facility] [address] [place] [address], [facility] Eosinophils (Bld) [#/Vol] 0.3 10*3/uL Normal 0.0-0.5 [facility] [place] Comment on above: Order Comment: No: D o not add to previous draw Performed By: #### 5 0103 #### [facility] [address] [place] [address], [facility] Eosinophils/100 WBC (Bld) 4.5 % Normal 0.0-6.0 [facility] [place] Comment on above: Order Comment: No: D o not add to previous draw Performed By: #### 5 0103 #### [facility] [address] [place] [id number], [facility] Erythrocyte distribution width (RBC) [Ratio] 14.0 % Normal 11.5-15.0 [facility] [place] Comment on above: Order Comment: No: D o not add to previous draw Performed By: #### 5 0103 #### [facility] [address] [place] [address], [facility] Hematocrit (Bld) [Volume fraction] 39.7 % Normal 36.0-45.0 [facility] [place] Comment on above: Order Comment: No: D o not add to previous draw Performed By: #### 5 0103 #### [facility] [address] [facility] [place] [address], [facility] Hemoglobin (Bld) [Mass/Vol] 12.9 g/dL Normal 12.0-15.0 [facility] [place] Comment on above: Order Comment: No: D o not add to previous draw Performed By: #### 5 0103 #### [facility] [address] [place] [address], [facility] IMMATURE GRANS 0.3 % Normal 0.0-1.0 [facility] [place] Comment on above: Order Comment: No: D o not add to previous draw Performed By: #### 5 0103 #### [facility] [address] [place] [address], [facility] Lymphocytes (Bld) [#/Vol] 3.1 10*3/uL Normal 1.2-4.0 [facility] [place] Comment on above: Order Comment: No: D o not add to previous draw Performed By: #### 5 0103 #### [facility] [address] [place] [address], [facility] Lymphocytes/100 WBC (Bld) 51.7 % High 20.0-45.0 [facility] [place] Comment on above: Order Comment: No: D o not add to previous draw Performed By: #### 5 0103 #### [facility] [address] [place] [address], [facility] MCH (RBC) [Entitic mass] 27.7 pg Normal 27.0-33.0 [facility] Comment on above: Order Comment: No: D o not add to previous draw Performed By: #### 5 0103 #### [facility] [address] [place] [address], [facility] MCHC (RBC) [Mass/Vol] 32.5 g/dL Normal 32.0-35.0 [facility] Comment on above: Order Comment: No: D o not add to previous draw Performed By: #### 5 0103 #### [facility] [address] [place] [address], [facility] MCV (RBC) [Entitic vol] 85.2 fL Normal 82.0-98.0 [facility] Comment on above: Order Comment: No: D o not add to previous draw Performed By: #### 5 0103 #### [facility] [address] [place] [address], [facility] Monocytes (Bld) [#/Vol] 0.4 10*3/uL Normal 0.1-1.0 [facility] Comment on above: Order Comment: No: D o not add to previous draw Performed By: #### 5 0103 #### [facility] [address] [place] [address], [facility] MONOS 7.2 % Normal 5.0-12.0 [facility] [place] Comment on above: Order Comment: No: D o not add to previous draw Performed By: #### 5 0103 #### [facility] [address] [facility] [place] [address], [facility] Neutrophils/100 WBC (Bld) 35.1 % Low 40.0-72.0 [facility] Comment on above: Order Comment: No: D o not add to previous draw Performed By: #### 5 0103 #### [facility] [address] [facility] [place] [address], [facility] Nucleated RBC/100 WBC (Bld) [Ratio] 0 % Normal 0-0 [facility] Comment on above: Order Comment: No: D o not add to previous draw Performed By: #### 5 0103 #### [facility] [address] [place] [place] [address], [facility] PLAT CNT 237 10*3/uL Normal 150-400 [facility] Comment on above: Order Comment: No: D o not add to previous draw Performed By: #### 5 0103 #### [facility] [address] [place] [address], [facility] RBC (Bld) [#/Vol] 4.66 10*6/uL Normal 3.80-5.00 [facility] Comment on above: Order Comment: No: D o not add to previous draw Performed By: #### 5 0103 #### [facility] [address] [place] [address], [facility] WBC (Bld) [#/Vol] 5.96 10*3/uL Normal 4.00-10.60 [facility] [place] Comment on above: Order Comment: No: D o not add to previous draw Performed By: #### 5 0103 #### [facility] [address] [place] [id number], [facility] COMP METABOLIC PANELon 09-28 Albumin [Mass/Vol] 4.5 g/dL Normal 3.5-5.7 [facility] [place] Comment on above: Order Comment: No: D o not add to previous draw Performed By: #### 4 4396, 59498, 11101, 58149, 07373, 83354 #### [facility] [address] [place] [address], [facility] ALKALINE PHOSPH 59 IU/L Normal 40-460 [facility] Comment on above: Order Comment: No: D o not add to previous draw Performed By: #### 4 4396, 82906, 54479, 89141, 33668, 44198 #### [facility] [address] [place] [address], [facility] ALT [Catalytic activity/Vol] 10 U/L Normal 7-52 [facility] Comment on above: Order Comment: No: D o not add to previous draw Performed By: #### 4 4396, 38678, 64280, 41788, 48338, 98224 #### [facility] [address] [place] [address], [place] AST [Catalytic activity/Vol] 17 U/L Normal 13-39 [facility] Comment on above: Order Comment: No: D o not add to previous draw Performed By: #### 4 4396, 92212, 42478, 49379, 14211, 12439 #### [facility] [address] [place] [address], [place] Bilirubin [Mass/Vol] 0.4 mg/dL Normal 0.3-1.0 [facility] Comment on above: Order Comment: No: D o not add to previous draw Performed By: #### 4 4396, 24942, 23160, 60241, 30404, 74124 #### [facility] [address] [place] [address], [place] Calcium [Mass/Vol] 9.5 mg/dL Normal 8.6-10.3 [facility] Comment on above: Order Comment: No: D o not add to previous draw Performed By: #### 4 4396, 70202, 90917, 96011, 92883, 32126 #### [facility] [address] [place] [address], [place] Chloride [Moles/Vol] 104 mmol/L Normal 98-107 [facility] Comment on above: Order Comment: No: D o not add to previous draw Performed By: #### 4 4396, 84996, 06647, 88004, 68878, 39441 #### [facility] [address] [place] [address], [place] CO2 [Moles/Vol] 28 mmol/L Normal 21-31 [facility] Comment on above: Order Comment: No: D o not add to previous draw Performed By: #### 4 4396, 03764, 66200, 08244, 74846, 92485 #### [facility] [address] [place] [address], [place] Creatinine [Mass/Vol] 0.66 mg/dL Normal 0.60-1.20 [facility] Comment on above: Order Comment: No: D o not add to previous draw Performed By: #### 4 4396, 29735, 39597, 41237, 67186, 86229 #### [facility] [address] [place] [address], [place] GFR/1.73 sq M predicted among blacks MDRD (S/P/Bld) [Vol rate/Area] Calculation not validated for patients under 18 years Abnormal >60 [facility] Comment on above: Order Comment: No: D o not add to previous draw Performed By: #### 4 4396, 51297, 31792, 41971, 61304, 13537 #### [facility] [address] [place] [address], [place] GFR/1.73 sq M predicted among non-blacks MDRD (S/P/Bld) [Vol rate/Area] Calculation not validated for patients under 18 years Abnormal >60 [facility] Comment on above: Order Comment: No: D o not add to previous draw Performed By: #### 4 4396, 62190, 33175, 41581, 86382, 82734 #### [facility] [address] [place] [address], [place] Glucose [Mass/Vol] 139 mg/dL High 70-100 [facility] Comment on above: Order Comment: No: D o not add to previous draw Performed By: #### 4 4396, 20372, 08954, 93208, 02688, 62371 #### [facility] [address] [place] [address], [place] Potassium [Moles/Vol] 3.6 mmol/L Normal 3.5-5.1 [facility] Comment on above: Order Comment: No: D o not add to previous draw Performed By: #### 4 4396, 39398, 18190, 24002, 02206, 18286 #### [facility] [address] [place] [address], [place] Protein [Mass/Vol] 7.2 g/dL Normal 6.0-8.3 [facility] Comment on above: Order Comment: No: D o not add to previous draw Performed By: #### 4 4396, 42962, 09644, 18139, 97588, 42095 #### [facility] [address] [place] [address], [facility] Sodium [Moles/Vol] 139 mmol/L Normal 136-145 [facility] Comment on above: Order Comment: No: D o not add to previous draw Performed By: #### 4 4396, 66248, 23865, 92360, 73205, 67766 #### [facility] [address] [place] [address], [facility] Urea nitrogen [Mass/Vol] 9 mg/dL Normal 7-25 [facility] Comment on above: Order Comment: No: D o not add to previous draw Performed By: #### 4 4396, 14289, 08201, 99015, 75870, 52399 #### [facility] [address] [place] [address], [facility] FREE T3on 09-29-2019 Free T3 [Mass/Vol] 4.2 pg/mL High 2.5-3.9 [facility] Comment on above: Order Comment: No: D o not add to previous draw Performed By: #### 4 4396, 66098, 71402, 53421, 60134, 23516 #### [facility] [address] [place] [address], [place] FREE T4on 09-29-2019 Free T4 [Mass/Vol] 0.82 ng/dL Normal 0.71-1.85 [facility] Comment on above: Order Comment: No: D o not add to previous draw Performed By: #### 4 4396, 02097, 90361, 33726, 48777, 36450 #### [facility] [address] [place] [address], [place] LIPID PROFILEon 09-29-2019 Cholesterol [Mass/Vol] 153 mg/dL Normal 120-170 [facility] Comment on above: Order Comment: No: D o not add to previous draw Result Comment: CHOL ESTEROL REFERENCE RANGE: 20 YEARS AND OLDER CARDIOVASCULAR RISK Less than 200 mg/dl Low Risk 200 to 239 mg/dl Borderline Risk 240 mg/dl and greater High Risk Performed By: #### 4 4396, 18603, 75952, 21891, 09160, 87947 #### [facility] [address] [place] [address], [place] Cholesterol in HDL [Mass/Vol] 56 mg/dL Normal 23-92 [facility] Comment on above: Order Comment: No: D o not add to previous draw Result Comment: Slig ht variation in normal range could be due to gender and/or age. HDL CHOLESTEROL REFERENCE RANGE: 20 years and older Cardiovascular Risk > or =60 mg/dL Desirable 40 TO 59 mg/dL Low Risk <40 mg/dL High Risk Performed By: #### 4 4396, 37099, 81569, 43503, 14775, 34412 #### [facility] [address] [place] [address], [place] Cholesterol in LDL [Mass/Vol] 74 mg/dL Normal 0-130 [facility] Comment on above: Order Comment: No: D o not add to previous draw Result Comment: LDL IS A CALCULATION LDL IS ONLY VALID IF THE TRIG IS LESS THAN 400. Performed By: #### 4 4396, 32653, 35197, 71376, 95147, 80568 #### [facility] [address] [place] [address], [place] Cholesterol.total/Cho lesterol in HDL [Mass ratio] 2.7 {ratio} Normal 0.0-4.5 [facility] Comment on above: Order Comment: No: D o not add to previous draw Performed By: #### 4 4396, 95922, 34469, 11244, 40089, 37862 #### [facility] [address] [place] [address], [place] NON-HDL CHOLESTEROL 97 mg/dL Normal [facility] Comment on above: Order Comment: No: D o not add to previous draw Performed By: #### 4 4396, 00454, 36304, 16608, 80014, 42955 #### [facility] [address] Triglyceride [Mass/Vol] 114 mg/dL Normal 37-148 [facility] Comment on above: Order Comment: No: D o not add to previous draw Result Comment: TRIG LYCERIDE REFERENCE RANGE: 20 YEARS AND OLDER CARDIOVASCULAR RISK LESS THAN 150 mg/dl LOW RISK 150 TO 199 mg/dl BORDERLINE RISK 200 mg/dl AND GREATER HIGH RISK Performed By: #### 4 4396, 61717, 02666, 40522, 37387, 31114 #### [facility] [address] [place] [address], [facility] VLDL CHOL 23 mg/dL Normal 0-40 [facility] Comment on above: Order Comment: No: D o not add to previous draw Performed By: #### 4 4396, 65134, 59241, 16642, 99625, 32863 #### [facility] [address] SERUM TESTon 09-28 TEST Negative Normal [facility] Comment on above: Order Comment: No: D o not add to previous draw Performed By: [id number] #### [facility] [address] [place] [address], [facility] TSH3on 09-29-2019 TSH 3RD GENERATION 1.24 uIU/mL Normal 0.34-5.60 [facility] Comment on above: Order Comment: No: D o not add to previous draw Performed By: #### [id number] #### [facility] [address] [place] [address], [facility] VITAMIN D 25-HYDROXYon 09-28 VITAMIN D 25-OH 42.5 ng/mL Normal 30.0-80.0 [facility] Comment on above: Result Comment: >80. 0 Toxicity possible Performed By: #### [id number] #### [facility] [address] Urine Drug Screenon 09-28-19 20 Amphetamine Screen, Ur Negative NEGATIVE [place] Comment on above: (Positive cutoff 500 ng/mL) Barbiturate Screen, Ur Negative NEGATIVE [place] Comment on above: (Positive cutoff 200 ng/mL) Benzodiazepine Screen, Urine Negative NEGATIVE [place] Comment on above: (Positive cutoff 150 ng/mL) Buprenorphine Urine NOT REPORTED NEGATIVE [place] Cannabinoid Scrn, Ur Positive Abnormal NEGATIVE [place] Comment on above: (Positive cutoff 50 ng/mL) Cocaine Metabolite, Urine Negative NEGATIVE [place] Comment on above: (Positive cutoff 150 ng/mL) Interpretation and review of laboratory results Abnormal [place] MDMA, Urine NOT REPORTED NEGATIVE [place] Methadone Screen, Urine Negative NEGATIVE [place] Comment on above: (Positive cutoff 200 ng/mL) Methamphetamine, Urine Negative NEGATIVE [place] Comment on above: (Positive cutoff 500 ng/mL) Opiates, Urine Negative NEGATIVE [place] Comment on above: (Positive cutoff 100 ng/mL) Oxycodone Screen, Ur Negative NEGATIVE [facility], [place] Comment on above: (Positive cutoff 100 ng/mL) Phencyclidine, Urine Negative NEGATIVE [place] Comment on above: (Positive cutoff 25 ng/mL) Propoxyphene, Urine Negative NEGATIVE [place] Comment on above: (Positive cutoff 300 ng/mL) Test Information NOT REPORTED [place] Tricyclic Antidepressants, Urine Negative NEGATIVE [place] Comment on above: (Positive cutoff 300 ng/mL) Drug screen results are to be used for medical purposes only. All positive results are unconfirmed. Testing for employment or legal uses should be sent to a reference laboratory for confirmation. Acetaminophen Levelon 2019 Acetaminophen [Mass/Vol] <5 Low 10 - 30 ug/mL [place] Interpretation and review of laboratory results Abnormal [place] Basic Metabolic Panelon 09-06 Anion gap [Moles/Vol] 15 mmol/L 9 - 17 mmol/L [place] Bun/Cre Ratio 13 [place] Calcium [Mass/Vol] 10.5 mg/dL High 8.4 - 10. 2 mg/dL [place] Chloride [Moles/Vol] 98 mmol/L 98 - 10 7 mmol/L [place] CO2 [Moles/Vol] 23 mmol/L 20 - 31 mmol/L [place] Creatinine [Mass/Vol] 0.61 mg/dL 0.5 - 0.9 mg/dL [place] GFR NOT REPORTED >60 mL/min [place] GFR Non- Pediatric GFR requires additional information. Refer to NKDEP website for calculator. >60 mL/min [place] GFR/1.73 sq M predicted among non-blacks MDRD (S/P/Bld) [Vol rate/Area] NOT REPORTED [place] GFR/1.73 sq M predicted among non-blacks MDRD (S/P/Bld) [Vol rate/Area] [place] Comment on above: Average GFR for <20 years old not available. Chronic Kidney Disease: <60 mL/min/1.73sq m Kidney failure: <15 mL/min/1.73sq m eGFR calculated using average adult body mass. Additional eGFR calculator available at: http://www.[employer]/multiple_crcl_2011.htm Glucose [Mass/Vol] 106 mg/dL High 60 - 100 mg/dL [place] Potassium [Moles/Vol] 3.9 mmol/L 3.6 - 4.9 mmol/L [place] Sodium [Moles/Vol] 136 mmol/L 135 - 144 mmol/L [place] Urea nitrogen [Mass/Vol] 8 mg/dL 5 - 18 mg/dL [place] CBC Auto Differentialon 09-06 Basophils (Bld) [#/Vol] 0.00 10*3/uL [place] Basophils/100 WBC (Bld) 0 % 0 - 2 % [place] Differential Type YES [place] Eosinophils (Bld) [#/Vol] 0.10 10*3/uL [place] Eosinophils/100 WBC (Bld) 1 % 0 - 5 % [place] Erythrocyte distribution width (RBC) [Ratio] 14.8 % 12.1 - 15.2 % [place] Hematocrit (Bld) [Volume fraction] 40.2 % 36 - 46 % [place] Hemoglobin (Bld) [Mass/Vol] 13.8 g/dL 12 - 16 g/dL [place] Lymphocytes (Bld) [#/Vol] 1.90 10*3/uL [place] Lymphocytes/100 WBC (Bld) 21 % 14 - 41 % [place] MCH (RBC) [Entitic mass] 28.4 pg 25 - 35 pg [place] MCHC (RBC) [Mass/Vol] 34.2 g/dL 31 - 37 g/dL [place] MCV (RBC) [Entitic vol] 83.1 fL 78 - 102 fL [place] Monocytes (Bld) [#/Vol] 0.70 10*3/uL [place] Monocytes/100 WBC (Bld) 7 % 4 - 8 % [place] Platelet mean volume (Bld) [Entitic vol] NOT REPORTED 6 - 12 fL [place] Platelets (Bld) [#/Vol] 238 10*3/uL [place] Platelets (Bld) [#/Vol] NOT REPORTED [place] RBC (Bld) [#/Vol] 4.84 10*6/uL 4 - 5.2 m/uL [place] RBC morphology finding Nom (Bld) NOT REPORTED [place] Segmented neutrophils/100 WBC (Bld) 71 % 45 - 76 % [place] Segs Absolute 6.50 [place] WBC (Bld) [#/Vol] 9.2 10*3/uL [place] WBC (Bld) [#/Vol] NOT REPORTED per 100 WBC [facility] NOT REPORTED [facility] Ethanolon 09-27-2019 Ethanol [Mass/Vol] mg/dL <10 mg/dL [place] Ethanol percent <0.010 % [facility] HCG Qualitative, Serumon hCG Qual Negative NEGATIVE [facility] [place] Comment on above: Specimens with hCG l evels near the threshold of the test (25 mIU/mL) may give a negative or indeterminate result. In such cases, another test should be performed with a new specimen in 48-72 hours. If early is suspected clinically in this setting, correlation with quantitative serum b-hCG level is suggested. [employer] has confirmed the use of plasma for this test. This has not been cleared or approved by the U.S. Food and Drug Administration. The FDA has determined that such clearance is not necessary. Otheron 09-27-2019 Interpretation and review of laboratory results Abnormal [facility] [place] Immature granulocytes (Bld) [#/Vol] NOT REPORTED 0 % [place] Salicylateon 09-27-2019 Salicylate Lvl <1 Low 3 - 10 mg/dL [facility] Centerveronica brendanMINER[facility]ENTERTHALIA TSH without Reflexon 020 TSH Qn 0.49 m[IU]/L [place] XR HAND RIGHT (MIN 3 VIEWS)o n 09-27-2019 EXAM: XR HAND RIGHT (MIN 3 VIEWS) HISTORY: Reason for exam:->pain to lateral MCs, punched wall COMPARISON: Right hand, 07/20/2014. TECHNIQUE: AP, oblique and lateral views of the right hand. FINDINGS: No acute or intrinsic osseous, articular or soft tissue abnormality is seen. [place] No acute findings. [place] Jeovany, Mhpn Incoming Radiant Results From [employer] - 09/27/2019 11:39 PM EDT EXAM: XR HAND RIGHT (MIN 3 VIEWS) HISTORY: Reason for exam:->pain to lateral MCs, punched wall COMPARISON: Right hand, 07/20/2014. TECHNIQUE: AP, oblique and lateral views of the right hand. FINDINGS: No acute or intrinsic osseous, articular or soft tissue abnormality is seen. IMPRESSION: No acute findings. [place] CBC Auto Differentialon 11-0 7-2019 Basophils (Bld) [#/Vol] 0.00 10*3/uL [place] Basophils/100 WBC (Bld) 1 % 0 - 2 % [place] Differential Type YES [place] Eosinophils (Bld) [#/Vol] 0.00 10*3/uL [place] Eosinophils/100 WBC (Bld) 1 % 0 - 5 % [place] Erythrocyte distribution width (RBC) [Ratio] 14.3 % 12.1 - 15.2 % [place] Hematocrit (Bld) [Volume fraction] 40.7 % 36 - 46 % [place] Hemoglobin (Bld) [Mass/Vol] 13.4 g/dL 12 - 16 g/dL [place] Interpretation and review of laboratory results Abnormal [place] Lymphocytes (Bld) [#/Vol] 1.20 10*3/uL [place] Lymphocytes/100 WBC (Bld) 33 % 14 - 41 % [place] MCH (RBC) [Entitic mass] 27.3 pg 25 - 35 pg [place] MCHC (RBC) [Mass/Vol] 33.0 g/dL 31 - 37 g/dL [place] MCV (RBC) [Entitic vol] 82.8 fL 78 - 102 fL [place] Monocytes (Bld) [#/Vol] 0.40 10*3/uL [place] Monocytes/100 WBC (Bld) 12 % High 4 - 8 % [place] Platelet mean volume (Bld) [Entitic vol] NOT REPORTED 6 - 12 fL [place] Platelets (Bld) [#/Vol] 235 10*3/uL [place] Platelets (Bld) [#/Vol] NOT REPORTED [place] RBC (Bld) [#/Vol] 4.92 10*6/uL 4 - 5.2 m/uL [place] RBC morphology finding Nom (Bld) NOT REPORTED [place] Segmented neutrophils/100 WBC (Bld) 53 % 45 - 76 % [place] Segs Absolute 2.10 Low [place] WBC (Bld) [#/Vol] 3.8 10*3/uL [place] WBC (Bld) [#/Vol] NOT REPORTED per 100 WBC [place] WBC Morphology NOT REPORTED [place] Comprehensive Metabolic Pane bonita 01-12-2019 Albumin [Mass/Vol] 4.8 g/dL High 3.2 - 4.5 g/dL [place] Albumin/Globulin [Mass ratio] NOT REPORTED [place] ALP [Catalytic activity/Vol] 88 U/L 47 - 119 U/L [place] ALT [Catalytic activity/Vol] 12 U/L 5 - 33 U/L [place] Anion gap [Moles/Vol] 17 mmol/L 9 - 17 mmol/L [place] AST [Catalytic activity/Vol] 24 U/L <32 [place] Bilirubin Ql (U) 0.46 mg/dL 0.3 - 1.2 mg/dL [place] Bun/Cre Ratio 14 [place] Calcium [Mass/Vol] 10.4 mg/dL High 8.4 - 10. 2 mg/dL [place] Chloride [Moles/Vol] 101 mmol/L 98 - 10 7 mmol/L [place] CO2 [Moles/Vol] 22 mmol/L 20 - 31 mmol/L [place] Creatinine [Mass/Vol] 0.65 mg/dL 0.5 - 0.9 mg/dL [place] GFR NOT REPORTED >60 mL/min [place] GFR Non- Pediatric GFR requires additional information. Refer to NKDEP website for calculator. >60 mL/min [place] GFR/1.73 sq M predicted among non-blacks MDRD (S/P/Bld) [Vol rate/Area] NOT REPORTED [place] GFR/1.73 sq M predicted among non-blacks MDRD (S/P/Bld) [Vol rate/Area] [place] Comment on above: Average GFR for <20 years old not available. Chronic Kidney Disease: <60 mL/min/1.73sq m Kidney failure: <15 mL/min/1.73sq m eGFR calculated using average adult body mass. Additional eGFR calculator available at: http://www.[employer]multiple_crcl_2012.htm Glucose [Mass/Vol] 90 mg/dL 60 - 100 mg/dL [place] Interpretation and review of laboratory results Abnormal [place] Potassium [Moles/Vol] 3.9 mmol/L 3.6 - 4.9 mmol/L [place] Protein [Mass/Vol] 8.7 g/dL High 6 - 8 g/dL [place] Sodium [Moles/Vol] 140 mmol/L 135 - 144 mmol/L [place] Urea nitrogen [Mass/Vol] 9 mg/dL 5 - 18 mg/dL [place] HCG Qualitative, Serumon hCG Qual Negative NEGATIVE [place] Comment on above: Specimens with hCG l evels near the threshold of the test (25 mIU/mL) may give a negative or indeterminate result. In such cases, another test should be performed with a new specimen in 48-72 hours. If early is suspected clinically in this setting, correlation with quantitative serum b-hCG level is suggested. [facility] has confirmed the use of plasma for this test. This has not been cleared or approved by the U.S. Food and Drug Administration. The FDA has determined that such clearance is not necessary. Otheron 01-12-2019 Immature granulocytes (Bld) [#/Vol] NOT REPORTED [place] HCG QUALITATIVE, URINEon HCG ( test) Ql (U) Negative Reli[facility] Otheron 12-18-2018 Interpretation and review of laboratory results Abnormal ReliOn URINALYSIS, MACROon 12-19-19 19 Bilirubin Ql (U) Negative NEGATIVE [facility] Clarity (U) CLEAR CLEAR [facility] Color (U) YELLOW YELLOW [facility] Glucose Test strip (U) [Mass/Vol] Negative NEGATIVE mg/dl [facility] Hemoglobin Ql (U) Negative NEGATIVE [facility] Ketones (U) [Mass/Vol] Negative NEGATIVE mg/dl [facility] Leukocyte esterase Test strip Ql (U) Negative NEGATIVE [facility] Nitrite Ql (U) Negative NEGATIVE [facility] TH pH (U) 7.0 [pH] [facility] Protein Ql (U) TRACE Abnormal NEGATIVE mg/dl [facility] Specific gravity (U) [Rel density] 1.025 [facility] Urobilinogen (U) [Mass/Vol] 0.2 [facility] URINE HCG QUALon 12-18-2018 Beta HCG ( test) Ql (U) Negative Normal [facility] URINE MACROSCOPICon 12-19-19 19 Bilirubin Ql (U) Negative Normal NEGATIVE [facility] Clarity (U) CLEAR Normal CLEAR [facility] Color (U) YELLOW Normal YELLOW [facility] Glucose Ql (U) Negative Normal NEGATIVE [facility] pH (U) 7.0 [pH] Normal 5.0-7.0 [facility] Protein (U) [Mass/Vol] TRACE Abnormal NEGATIVE [facility] URINE HEMOGLOBIN Negative Normal NEGATIVE [facility] URINE KETONE Negative Normal NEGATIVE [facility] URINE LEUKOTEST Negative Normal NEGATIVE [facility] URINE NITRATES Negative Normal NEGATIVE [facility] URINE SPEC GRAVITY 1.025 Normal 1.010-1.025 [facility] Urobilinogen Qn (U) 0.2 {Manuel'U}/dL Normal 0.2-1.0 [facility] URINE MICROSCOPICon 12-19-19 19 Bacteria LM.HPF (Urine sed) [#/Area] TRACE Abnormal NEGATIVE [facility] Casts LM.LPF (Urine sed) [#/Area] NONE Normal NONE [facility] CRYSTAL NONE Normal NONE [facility] Epithelial cells LM.HPF (Urine sed) [#/Area] 10 TO 20 Normal [facility] Mucus Ql (Urine sed) Negative Normal NEGATIVE [facility] RBC (U) [#/Vol] Negative Normal NEGATIVE [facility] URINE COMMENT CULTURE CRITERIA NOT MET, NO CULTURE PERFORMED. Normal [facility] WBC (U) [#/Vol] 1 TO 5 Normal NEGATIVE [facility] Bacteria LM.HPF (Urine sed) [#/Area] TRACE Abnormal NEGATIVE [facility] H Casts LM.LPF (Urine sed) [#/Area] NONE NONE /LPF [facility] Crystals LM Nom (Urine sed) NONE NONE [facility] Epithelial cells LM Ql (Urine sed) 10 TO 20 /HPF [facility] Mucus Ql (Urine sed) Negative NEGATIVE [facility] RBC LM.HPF (Urine sed) [#/Area] Negative NEGATIVE /HPF [facility] Urine sediment comments LM Vinnie (Urine sed) CULTURE CRITERIA NOT MET, NO CULTURE PERFORMED. [facility] WBC LM.HPF (Urine sed) [#/Area] 1 TO 5 NEGATIVE /HPF [facility] Strep Screen Group A Throato n 12-16-2018 S. pyogenes Ag IA Ql (Unsp spec) Rapid Strep A negative. A negative Rapid Group A Strep Screen result does not rule out the possibility of Group A Streptococci in the specimen. The [place] [employer] recommends confirmation testing. Therefore, a Group A Strep DNA test will be performed. [place] Special Requests NOT REPORTED [place] Specimen Description .THROAT [place] XR CHEST STANDARD (2 VW)on Negative chest. [place] EXAM: XR CHEST (2 VW) HISTORY: Reason for exam:->cough COMPARISON: None. TECHNIQUE: 2 views chest FINDINGS: Heart size normal. Lungs clear. Bony thorax and upper abdomen normal. [place], Mhpn Incoming Radiant Results From [employer] - 12/16/2018 5:28 PM EDT EXAM: XR CHEST (2 VW) HISTORY: Reason for exam:->cough COMPARISON: None. TECHNIQUE: 2 views chest FINDINGS: Heart size normal. Lungs clear. Bony thorax and upper abdomen normal. IMPRESSION: Negative chest. [place] Vital Signs Date Time Vital Sign Value Performing Clinician Shadi ag 03-06-2024 [id number] Body weight 72.18 kg Jewell MATTHEWS Work Phone: [facility] 03-06-2024 10:11-0500 Diastolic blood pressure 64 mm[Hg] Jewell MATTHEWS Work Phone: [facility] 03-06-2024 10:11-0500 Systolic blood pressure 110 mm[Hg] Jewell MATTHEWS Work Phone: [facility] 02-21-2024 10:13-0500 Body height 160 cm Doyle Amaro MD Work Phone: [facility] 02-21-2024 10:13-0500 Body mass index (BMI) [Ratio] 28.52 kg/m2 Doyle Amaro MD Work Phone: [facility] 02-21-2024 10:13-0500 Body weight 73.03 kg Doyle Amaro MD Work Phone: [facility] 02-21-2024 10:13-0500 Diastolic blood pressure 70 mm[Hg] Doyle Amaro MD Work Phone: [facility] 02-21-2024 10:13-0500 Systolic blood pressure 105 mm[Hg] Doyle Amaro MD Work Phone: [facility] 02-07-2024 11:12-0500 Body mass index (BMI) [Ratio] 28.63 kg/m2 Malka Allison SAL[employer]ISSIONS ANALYST-ATTENDANT SAL[employer] Work Phone: [facility] 02-07-2024 11:12-0500 Body weight 73.3 kg Malka Allison SAL[employer] COMMISSIONS ANALYST-ATTENDANT SALES Work Phone: [facility] 02-07-2024 11:12-0500 Diastolic blood pressure 60 mm[Hg] Malka Allison SAL[employer] COMMISSIONS ANALYST-ATTENDANT SALES Work Phone: [facility] 02-07-2024 11:12-0500 Systolic blood pressure 108 mm[Hg] Malka Allison [employer] COMMISSIONS ANALYST-ATTENDANT SALES Work Phone: [facility] 01-10-2024 09:44-0500 Body mass index (BMI) [Ratio] 27.56 kg/m2 Nahed Stewart MD Work Phone: [facility] 01-10-2024 09:44-0500 Body weight 70.58 kg Nahed Stewart MD Work Phone: [facility] 01-10-2024 09:44-0500 Diastolic blood pressure 60 mm[Hg] Nahed Stewart MD Work Phone: [facility] 01-10-2024 09:44-0500 Systolic blood pressure 100 mm[Hg] Nahed Stewart MD Work Phone: [facility] 12-13-2023 09:17-0400 Body mass index (BMI) [Ratio] 26.04 kg/m2 Nahed Stewart MD Work Phone: [facility] 12-13-2023 09:17-0400 Body weight 66.68 kg Nahed Stewart MD Work Phone: [facility] 12-13-2023 09:17-0400 Diastolic blood pressure 60 mm[Hg] Nahed Stewart MD Work Phone: [phone] [place] [address] 12-13-2023 09:17-0400 Systolic blood pressure 100 mm[Hg] Nahed Stewart MD Work Phone: [facility] 11-11-2023 13:33-0400 Body mass index (BMI) [Ratio] 24.98 kg/m2 Nahed Stewart MD Work Phone: [facility] 11-11-2023 13:33-0400 Body weight 63.96 kg Nahed Stewart MD Work Phone: [facility] 11-11-2023 13:33-0400 Diastolic blood pressure 56 mm[Hg] Nahed Stewart MD Work Phone: [facility] 11-11-2023 13:33-0400 Systolic blood pressure 112 mm[Hg] Nahed Stewart MD Work Phone: [facility] 10-14-2023 13:27-0400 Body height 160 cm Doyle Amaro MD Work Phone: [facility] 10-14-2023 13:27-0400 Body mass index (BMI) [Ratio] 24.62 kg/m2 Doyle Amaro MD Work Phone: [facility] 10-14-2023 13:27-0400 Body weight 63.05 kg Doyle Amaro MD Work Phone: [facility] 10-14-2023 13:27-0400 Diastolic blood pressure 62 mm[Hg] Doyle Amaro MD Work Phone: [facility] 10-14-2023 13:27-0400 Systolic blood pressure 120 mm[Hg] Doyle Amaro MD Work Phone: [facility] 09-26-2023 19:52-0400 Diastolic blood pressure 86 mm[Hg] Justin Kash [facility] 09-26-2023 19:52-0400 Heart rate 96 /min Justin Kash [facility] 09-26-2023 19:52-0400 Mean blood pressure 97 mm[Hg] Justin Kash [facility] 09-26-2023 19:52-0400 Respiratory rate 23 /min Justin Kash [facility] 09-26-2023 19:52-0400 SaO2% (BldA) [Mass fraction] 99 % Justin Kash [facility] 09-26-2023 19:52-0400 Systolic blood pressure 120 mm[Hg] Justin Kash [facility] 09-26-2023 18:46-0400 Diastolic blood pressure 81 mm[Hg] Justin Kash [facility] 09-26-2023 18:46-0400 Heart rate 89 /min Justin Kash [facility] 09-26-2023 18:46-0400 Mean blood pressure 96 mm[Hg] Justin Kash [facility] 09-26-2023 18:46-0400 Respiratory rate 18 /min Justin Kash [facility] 09-26-2023 18:46-0400 SaO2% (BldA) [Mass fraction] 98 % Justin Kash [facility] 09-26-2023 18:46-0400 Systolic blood pressure 126 mm[Hg] Justin Kash [facility] 09-26-2023 18:00-0400 Heart rate 97 /min Justin Kash [facility] 09-26-2023 18:00-0400 Mean blood pressure 94 mm[Hg] Justin Kash [facility] 09-26-2023 18:00-0400 SaO2% (BldA) [Mass fraction] 100 % Justin Kash [facility] 09-26-2023 18:00-0400 Systolic blood pressure 121 mm[Hg] Justin Kash [facility] 09-26-2023 16:57-0400 Body temperature 98.96 [degF] Justin Kash [facility] 09-26-2023 16:57-0400 Heart rate 94 /min Justin Kash [facility] 09-26-2023 16:57-0400 Respiratory rate 18 /min Justin Kash [facility] 09-26-2023 16:42-0400 Body temperature 98.6 [degF] Justin Kash [facility] 09-26-2023 16:42-0400 Heart rate 106 /min Justin Kash [facility] 09-26-2023 16:42-0400 Respiratory rate 18 /min Justin Kash [facility] 09-24-2023 13:28-0400 [facility] height [id number] 09-24-2023 13:28-0400 Body mass index (BMI) [Ratio] 23.91 kg/m2 Avg [facility] [id number] [facility] 09-24-2023 13:28-0400 Body weight 61.24 kg [id number] 09-24-2023 13:28-0400 Diastolic blood pressure 68 mm[Hg] Avg [place] [id number] [facility] 09-24-2023 13:28-0400 Systolic blood pressure 112 mm[Hg] [address] 09-16-2023 08:37-0400 Body temperature 98.24 [degF] [facility] 09-16-2023 08:37-0400 Diastolic blood pressure 78 mm[Hg] [facility] 09-16-2023 08:37-0400 Heart rate 76 /min [facility] 09-16-2023 08:37-0400 Respiratory rate 18 /min [facility] 09-16-2023 08:37-0400 SaO2% (BldA) [Mass fraction] 100 % [facility] 09-16-2023 08:37-0400 Systolic blood pressure 126 mm[Hg] [facility] 09-13-2023 10:56-0400 Blood Pressure Location Pari Underwood [facility] 09-13-2023 10:56-0400 Body temperature 97.88 [degF] Pari Underwood [facility] 09-13-2023 10:56-0400 Diastolic blood pressure 68 mm[Hg] Pari Underwood [facility] 09-13-2023 10:56-0400 Heart rate 74 /min Pari Underwood [facility] 09-13-2023 10:56-0400 Respiratory rate 18 /min Pari Underwood [facility] 09-13-2023 10:56-0400 SaO2% (BldA) [Mass fraction] 98 % Pari Underwood [facility] 09-13-2023 10:56-0400 Systolic blood pressure 110 mm[Hg] Pari Underwood [facility] 08-13-2023 14:20-0400 Blood Pressure Location Pari Underwood [facility] 08-13-2023 14:20-0400 Body temperature 97.88 [degF] Pari Underwood [facility] 08-13-2023 14:20-0400 Diastolic blood pressure 80 mm[Hg] Pari Underwood [facility] [place] 08-13-2023 14:20-0400 Heart rate 88 /min Pari Underwood [facility] 08-13-2023 14:20-0400 Respiratory rate 16 /min Pari Underwood [facility] 08-13-2023 14:20-0400 SaO2% (BldA) [Mass fraction] 99 % Pari Underwood [facility] 08-13-2023 14:20-0400 Systolic blood pressure 122 mm[Hg] Pari Underwood [facility] 08-04-2023 14:57-0400 Body mass index (BMI) [Ratio] 22.96 kg/m2 Nahed Stewart MD Work Phone: [employer] [facility] 08-04-2023 14:57-0400 Body weight 58.79 kg Nahed Stewart MD Work Phone: [employer] [facility] 08-04-2023 14:57-0400 Diastolic blood pressure 62 mm[Hg] Nahed Stewart MD Work Phone: [employer] [facility] 08-04-2023 14:57-0400 Systolic blood pressure 120 mm[Hg] Nahed Stewart MD Work Phone: [employer] 04-16-2023 14:16-0500 Body mass index (BMI) [Ratio] 20.87 kg/m2 Nahed Stewart MD Work Phone: [employer] 04-16-2023 14:16-0500 Body weight 53.43 kg Nahed Stewart MD Work Phone: [employer] 04-16-2023 14:16-0500 Diastolic blood pressure 76 mm[Hg] Nahed Stewart MD Work Phone: [employer] 04-16-2023 14:16-0500 Systolic blood pressure 118 mm[Hg] Nahed Stewart MD Work Phone: [employer] 10-23-2022 09:25-0400 Body height 160 cm Nahed Stewart MD Work Phone: [employer] 10-23-2022 09:25-0400 Body mass index (BMI) [Ratio] 21.33 kg/m2 Nahed Stewart MD Work Phone: [employer] 10-23-2022 09:25-0400 Body weight 54.61 kg Nahed Stewart MD Work Phone: [employer] 10-23-2022 09:25-0400 Diastolic blood pressure 68 mm[Hg] Nahed Stewart MD Work Phone: [employer] 10-23-2022 09:25-0400 Systolic blood pressure 100 mm[Hg] Nahed Stewart MD Work Phone: [facility] 09-01-2022 13:16-0400 Body mass index (BMI) [Ratio] 21.36 kg/m2 Nahed Stewart MD Work Phone: [facility] 09-01-2022 13:16-0400 Body weight 54.7 kg Nahed Stewart MD Work Phone: [facility] 09-01-2022 13:16-0400 Diastolic blood pressure 66 mm[Hg] Nahed Stewart MD Work Phone: [facility] 09-01-2022 13:16-0400 Systolic blood pressure 120 mm[Hg] Nahed Stewart MD Work Phone: [facility] 06-08-2022 13:20-0400 Body temperature 98.71 [degF] [employer] 06-08-2022 13:20-0400 Diastolic blood pressure 70 mm[Hg] [facility] 06-08-2022 13:20-0400 Heart rate 82 /min [facility] 06-08-2022 13:20-0400 Respiratory rate 18 /min [facility] 06-08-2022 13:20-0400 SaO2% (BldA) [Mass fraction] 97 % [facility] 06-08-2022 13:20-0400 Systolic blood pressure 117 mm[Hg] [facility] 04-22-2022 09:40-0500 Body mass index (BMI) [Ratio] 21.01 kg/m2 Nahed Stewart MD Work Phone: [facility] 04-22-2022 09:40-0500 Body weight 53.8 kg Nahed Stewart MD Work Phone: [facility] 04-22-2022 09:40-0500 Diastolic blood pressure 62 mm[Hg] Nahed Stewart MD Work Phone: [facility] 04-22-2022 09:40-0500 Systolic blood pressure 110 mm[Hg] Nahed Stewart MD Work Phone: [facility] 03-20-2022 14:35-0500 Body mass index (BMI) [Ratio] 22.21 kg/m2 Nahed Stewart MD Work Phone: [employer] [facility] 03-20-2022 14:35-0500 Body weight 56.88 kg Nahed Stewart MD Work Phone: [employer] [facility] 03-20-2022 14:35-0500 Diastolic blood pressure 70 mm[Hg] Nahed Stewart MD Work Phone: [facility] 03-20-2022 14:35-0500 Systolic blood pressure 118 mm[Hg] Nahed Stewart MD Work Phone: [facility] 10-24-2021 14:45-0400 Body height 160 cm Nahed Stewart MD Work Phone: [facility] 10-24-2021 14:45-0400 Body mass index (BMI) [Ratio] 23.03 kg/m2 Nahed Stewart MD Work Phone: [facility] 10-24-2021 14:45-0400 Body weight 58.97 kg Nahed Stewart MD Work Phone: [facility] 10-24-2021 14:45-0400 Diastolic blood pressure 62 mm[Hg] Nahed Stewart MD Work Phone: [facility] 10-24-2021 14:45-0400 Systolic blood pressure 120 mm[Hg] Nahed Stewart MD Work Phone: [facility] 08-05-2021 09:20-0400 Body mass index (BMI) [Ratio] 28.09 kg/m2 Nahed Stewart MD Work Phone: [employer] [facility] 08-05-2021 09:20-0400 Body weight 71.94 kg Nahed Stewart MD Work Phone: [employer] [facility] 08-05-2021 09:20-0400 Diastolic blood pressure 56 mm[Hg] Nahed Stewart MD Work Phone: [facility] 08-05-2021 09:20-0400 Systolic blood pressure 98 mm[Hg] Nahed Stewart MD Work Phone: [facility] 07-28-2021 09:03-0400 Body height 160 cm Doyle Amaro MD Work Phone: [facility] 07-28-2021 09:03-0400 Body mass index (BMI) [Ratio] 27.46 kg/m2 Doyle Amaro MD Work Phone: [facility] 07-28-2021 09:03-0400 Body weight 70.31 kg Doyle Amaro MD Work Phone: [facility] 07-28-2021 09:03-0400 Diastolic blood pressure 64 mm[Hg] Doyle Amaro MD Work Phone: [facility] 07-28-2021 09:03-0400 Systolic blood pressure 140 mm[Hg] Doyle Amaro MD Work Phone: [facility] 07-14-2021 09:00-0400 Body height 160 cm Malka Allison SALES COMMISSIONS ANALYST-ATTENDANT SALES Work Phone: [facility] 07-14-2021 09:00-0400 Body mass index (BMI) [Ratio] 26.75 kg/m2 Malka Allison SALES COMMISSIONS ANALYST-ATTENDANT SALES Work Phone: [facility] 07-14-2021 09:00-0400 Body weight 68.49 kg Malka Allison SALES COMMISSIONS ANALYST-ATTENDANT SALES Work Phone: [facility] 07-14-2021 09:00-0400 Diastolic blood pressure 62 mm[Hg] Malka Allison SALES COMMISSIONS ANALYST-ATTENDANT SALES Work Phone: [facility] 07-14-2021 09:00-0400 Systolic blood pressure 106 mm[Hg] Malka Allison SALES COMMISSIONS ANALYST-ATTENDANT SALES Work Phone: [facility] 06-30-2021 09:33-0400 Body height 160 cm Doyle Amaro MD Work Phone: [facility] 06-30-2021 09:33-0400 Body mass index (BMI) [Ratio] 26.04 kg/m2 Doyle Amaro MD Work Phone: [facility] 06-30-2021 09:33-0400 Body weight 66.68 kg Doyle Amaro MD Work Phone: [facility] 06-30-2021 09:33-0400 Diastolic blood pressure 64 mm[Hg] Doyle Amaro MD Work Phone: [facility] 06-30-2021 09:33-0400 Systolic blood pressure 102 mm[Hg] Doyle Amaro MD Work Phone: [facility] 06-16-2021 09:08-0400 Body height 160 cm Malka Betancuram SALES COMMISSIONS ANALYST-ATTENDANT SALES Work Phone: [facility] 06-16-2021 09:08-0400 Body mass index (BMI) [Percentile] Per age and sex 84.17 % Malka Allison SALES COMMISSIONS ANALYST-ATTENDANT SALES Work Phone: [facility] 06-16-2021 09:08-0400 Body mass index (BMI) [Ratio] 25.86 kg/m2 Malka Allison SALES COMMISSIONS ANALYST-ATTENDANT SALES Work Phone: [facility] 06-16-2021 09:08-0400 Body weight 66.22 kg Malka Allison SALES COMMISSIONS ANALYST-ATTENDANT SALES Work Phone: [facility] 06-16-2021 09:08-0400 Diastolic blood pressure 64 mm[Hg] Malka Allison SALES COMMISSIONS ANALYST-ATTENDANT SALES Work Phone: [facility] 06-16-2021 09:08-0400 Systolic blood pressure 106 mm[Hg] Malka Allison SALES COMMISSIONS ANALYST-ATTENDANT SALES Work Phone: [facility] 06-02-2021 09:07-0400 Body mass index (BMI) [Percentile] Per age and sex 79.15 % Nahed Stewart MD Work Phone: [facility] 06-02-2021 09:07-0400 Body mass index (BMI) [Ratio] 24.8 kg/m2 Nahed Stewart MD Work Phone: [facility] 06-02-2021 09:07-0400 Body weight 63.5 kg Nahed Stewart MD Work Phone: [employer] [facility] 06-02-2021 09:07-0400 Diastolic blood pressure 56 mm[Hg] Nahed Stewart MD Work Phone: [employer] [facility] 06-02-2021 09:07-0400 Systolic blood pressure 100 mm[Hg] Nahed Stewart MD Work Phone: [facility] 05-13-2021 10:08-0500 Body height 160 cm Malka Allison SALES COMMISSIONS ANALYST-ATTENDANT SALES Work Phone: [facility] 05-13-2021 10:08-0500 Body mass index (BMI) [Percentile] Per age and sex 72.35 % Malka Allison SALES COMMISSIONS ANALYST-ATTENDANT SALES Work Phone: [facility] 05-13-2021 10:08-0500 Body mass index (BMI) [Ratio] 23.74 kg/m2 Malka Allison SALES COMMISSIONS ANALYST-ATTENDANT SALES Work Phone: [facility] 05-13-2021 10:08-0500 Body weight 60.78 kg Malka Allison SALES COMMISSIONS ANALYST-ATTENDANT SALES Work Phone: [employer] [facility] 05-13-2021 10:08-0500 Diastolic blood pressure 62 mm[Hg] Malka Allison SALES COMMISSIONS ANALYST-ATTENDANT SALES Work Phone: [employer] [facility] 05-13-2021 10:08-0500 Systolic blood pressure 104 mm[Hg] Malka Allison SALES COMMISSIONS ANALYST-ATTENDANT SALES Work Phone: [facility] 04-22-2021 14:24-0500 Body mass index (BMI) [Percentile] Per age and sex 72.49 % Nahed Stewart MD Work Phone: [employer] [facility] 04-22-2021 14:24-0500 Body mass index (BMI) [Ratio] 23.74 kg/m2 Nahed Stewart MD Work Phone: [employer] [facility] 04-22-2021 14:24-0500 Body weight 60.78 kg Nahed Stewart MD Work Phone: [facility] 04-22-2021 14:24-0500 Diastolic blood pressure 70 mm[Hg] Nahed Stewart MD Work Phone: [facility] 04-22-2021 14:24-0500 Systolic blood pressure 112 mm[Hg] Nahed Stewart MD Work Phone: [facility] 03-13-2021 10:20-0500 Body height 160 cm Doyle Amaro MD Work Phone: [facility] 03-13-2021 10:20-0500 Body mass index (BMI) [Percentile] Per age and sex 59.91 % Doyle Amaro MD Work Phone: [facility] 03-13-2021 10:20-0500 Body mass index (BMI) [Ratio] 22.32 kg/m2 Doyle Amaro MD Work Phone: [facility] 03-13-2021 10:20-0500 Body weight 57.15 kg Doyle Amaro MD Work Phone: [facility] 03-13-2021 10:20-0500 Diastolic blood pressure 76 mm[Hg] Doyle Amaro MD Work Phone: [facility] 03-13-2021 10:20-0500 Systolic blood pressure 122 mm[Hg] Doyle Amaro MD Work Phone: [facility] 02-06-2021 09:17-0500 Body height 160 cm Doyle Amaro MD Work Phone: [employer] [facility] 02-06-2021 09:17-0500 Body mass index (BMI) [Percentile] Per age and sex 56.34 % Doyle Amaro MD Work Phone: [employer] [facility] 02-06-2021 09:17-0500 Body mass index (BMI) [Ratio] 21.97 kg/m2 Doyle Amaro MD Work Phone: [employer] [facility] 02-06-2021 09:17-0500 Body weight 56.25 kg Doyle Amaro MD Work Phone: [facility] 02-06-2021 09:17-0500 Diastolic blood pressure 70 mm[Hg] Doyle Amaro MD Work Phone: [facility] 02-06-2021 09:17-0500 Systolic blood pressure 112 mm[Hg] Doyle Amaro MD Work Phone: [facility] 01-14-2021 09:45-0500 Body height 160 cm Avg Gurjit Gal [id number] [facility] 01-14-2021 09:45-0500 Body mass index (BMI) [Percentile] Per age and sex 60.4 % Avg Gurjit Gal [id number] [facility] 01-14-2021 09:45-0500 Body mass index (BMI) [Ratio] 22.32 kg/m2 Avg Gurjit Gal [id number] [facility] 01-14-2021 09:45-0500 Body weight 57.15 kg Avg Gurjit Gal [id number] [facility] 01-14-2021 09:45-0500 Diastolic blood pressure 72 mm[Hg] Avg Gurjit Gal [id number] [facility] 01-14-2021 09:45-0500 Systolic blood pressure 112 mm[Hg] Avg Gurjit Gal [id number] [facility] 09-28-2019 08:35-0400 BP Diastolic 68 mm[Hg] [facility] 09-28-2019 08:35-0400 BP Systolic 140 mm[Hg] [facility] 09-28-2019 08:35-0400 Pulse (Heart Rate) 92 /min [facility], [place] 09-28-2019 08:35-0400 Pulse Oximetry 99 % [facility] 09-28-2019 08:35-0400 Respiratory Rate 16 /min [facility] 09-28-2019 06:54-0400 Body Temperature 98.29 [degF] [facility] 09-27-2019 22:49-0400 BMI (Body Mass Index) 21.43 kg/m2 [facility] 09-27-2019 22:49-0400 Body weight 54.88 kg Miguel Angel Singh [facility] 09-27-2019 22:49-0400 Height 160 cm [facility], [place] 05-19-2019 19:55-0400 BP Diastolic 59 mm[Hg] [facility], [place] 05-19-2019 19:55-0400 BP Systolic 114 mm[Hg] [facility] 05-19-2019 19:55-0400 Pulse (Heart Rate) 66 /min [facility], [place] 05-19-2019 19:55-0400 Pulse Oximetry 100 % [facility] 05-19-2019 19:55-0400 Respiratory Rate 18 /min [facility], [place] 05-19-2019 18:36-0400 BMI (Body Mass Index) 21.97 kg/m2 [facility] 05-19-2019 18:36-0400 Body Temperature 98.29 [degF] [facility] 05-19-2019 18:36-0400 Body weight 56.25 kg [facility] 05-19-2019 18:36-0400 Height 160 cm [facility] 03-08-2019 18:31-0500 Body temperature 98.1 [degF] Peter Petty MD Work Phone: [facility] Work Phone: 03-08-2019 18:31-0500 Body weight 57.15 kg Peter Petty MD Work Phone: [employer] Work Phone: 03-08-2019 18:31-0500 Diastolic blood pressure 90 mm[Hg] Peter Petty MD Work Phone: [employer] Work Phone: 03-08-2019 18:31-0500 Heart rate 86 /min Peter Petty MD Work Phone: [employer] Work Phone: 03-08-2019 18:31-0500 Respiratory rate 20 /min Peter Petty MD Work Phone: [employer] Work Phone: 03-08-2019 18:31-0500 SaO2% (BldA) [Mass fraction] 100 % Peter Petty MD Work Phone: [employer] Work Phone: 03-08-2019 18:31-0500 Systolic blood pressure 139 mm[Hg] Peter Petty MD Work Phone: [employer] Work Phone: 01-12-2019 23:01-0500 Pulse Oximetry 99 % [facility] [place] 01-12-2019 22:49-0500 BP Diastolic 80 mm[Hg] [facility] [employer] [facility], [place] 01-12-2019 22:49-0500 BP Systolic 107 mm[Hg] [facility] [place] 01-12-2019 22:17-0500 Body Temperature 97.59 [degF] [facility] [place] 01-12-2019 22:17-0500 Body weight 55.02 kg [facility] [place] 01-12-2019 22:17-0500 Pulse (Heart Rate) 64 /min [facility] [employer] [facility] 01-12-2019 22:17-0500 Respiratory Rate 16 /min [facility] [place] 12-18-2018 14:52-0400 Height 160 cm [employer] 12-18-2018 14:47-0400 Body Temperature 99.81 [degF] [employer] 12-18-2018 14:47-0400 BP Diastolic 62 mm[Hg] [employer] 12-18-2018 14:47-0400 BP Systolic 108 mm[Hg] [facility] 12-18-2018 14:47-0400 Pulse (Heart Rate) 82 /min [facility] 12-18-2018 14:47-0400 Pulse Oximetry 96 % [facility] 12-18-2018 14:47-0400 Respiratory Rate 18 /min [facility] 12-16-2018 16:47-0400 BP Diastolic 46 mm[Hg] [place], [place] 12-16-2018 16:47-0400 BP Systolic 94 mm[Hg] [place] 12-16-2018 16:46-0400 Body Temperature 99.19 [degF] [facility], [place] 12-16-2018 16:46-0400 Body weight 55.2 kg [place], [place] 12-16-2018 16:46-0400 Pulse (Heart Rate) 84 /min [place], [place] 12-16-2018 16:46-0400 Pulse Oximetry 100 % [place], [place] 12-16-2018 16:46-0400 Respiratory Rate 16 /min [place], [place] Encounters Encounter Date Encounter Type Care Provider Facility Start: 03-30-2024 End: 03-30-2024 Bamboo flowsheet Jewell MATTHEWS Work Phone: [facility] Start: 03-30-2024 End: 03-30-2024 [employer] Jewell MATTHEWS Work Phone: [facility] Start: 03-06-2024 End: 03-06-2024 [employer] Jewell MATTHEWS Work Phone: [facility] Start: 03-06-2024 End: 03-06-2024 Bamboo [...] care visit Doyle Amaro MD Work Phone: [facility] ADVERTISING DISPATCH CLERKS SUPERVISOR Comment on above: Encounter for superv ision of other normal , third trimester (Primary Dx); 30 weeks gestation of Start: 02-21-2024 ambulatory DOYLE AMARO [facility] Start: 02-18-2024 End: 02-18-2024 Clinisync Result Encounter Meir Jamal DO Work Phone: [facility] External [facility] Unsolicited Start: 02-18-2024 End: 02-18-2024 Clinisync Result Encounter Meir Jamal DO Work Phone: [facility] Unsolicited Start: 02-07-2024 End: 02-07-2024 Subsequent care visit Malka CURTIS Work Phone: [facility] [employer]VERTISING [employer]PATCH CLERKS SUPERVISOR Comment on above: Encounter for superv ision of other normal , third trimester (Primary Dx); 28 weeks gestation of Start: 02-07-[address] [facility] Start: 01-25-2024 End: 01-25-2024 ambulatory CRUSHERMarques Fuentes Facility:[facility] Start: 01-24-2024 ambulatory Justin Kash Facility:F [facility] Start: 01-10-2024 End: 01-10-2024 Subsequent care visit Nahed Stewart MD Work Phone: [facility] [employer]VERTISING DISPATCH CLERKS SUPERVISOR Comment on above: Encounter for superv ision of other normal , second trimester (Primary Dx) Start: 01-10-[address] [facility] Start: 12-13-2023 End: 12-13-2023 Subsequent care visit Nahed Stewart MD Work Phone: [facility] ADVERTISING DISPATCH CLERKS SUPERVISOR Comment on above: Encounter for superv ision of other normal in second trimester (Primary Dx) Start: 12-13-[address] [facility] Start: 12-13-2023 End: 12-13-2023 Subsequent hospital visit by physician Nahed Stewart MD Work Phone: [facility] Start: 11-11-2023 End: 11-11-2023 Subsequent care visit Nahed Stewart MD Work Phone: [facility] ADVERTISING DISPATCH CLERKS SUPERVISOR Comment on above: Encounter for superv ision of other normal in first trimester (Primary Dx); 16 weeks gestation of Start: 11-11-2023 End: 11-11-2023 Subsequent hospital visit by physician Doyle Amaro MD Work Phone: [facility] Start: 11-11-2023 [facility] Start: 10-14-2023 End: 10-14-2023 Subsequent care visit Dyole Amaro MD Work Phone: [facility] ADVERTISING DISPATCH CLERKS SUPERVISOR Comment on above: Encounter for superv ision of other normal in first trimester (Primary Dx); Hx of herpes genitalis; Family history of diabetes mellitus in sister; 12 weeks gestation of Start: 10-14-2023 ambulatory DOYLE AMARO [facility] Start: 09-26-2023 End: 09-26-2023 Emergency department patient visit Justin Saleh Kash [facility] Start: 09-24-2023 End: 09-24-2023 Office outpatient visit 5 minutes Nahed Stewart MD Work Phone: [facility] ADVERTISING DISPATCH CLERKS SUPERVISOR Comment on above: Encounter for superv ision of other normal in first trimester (Primary Dx); 9 weeks gestation of ; Family history of diabetes mellitus in sister; HSV infection; Major depressive disorder, recurrent episode, moderate Start: 09-24-2023 ambulatory [facility] Start: 09-16-2023 End: 09-16-2023 Emergency department patient visit Jl Medina [facility] Start: 09-13-2023 End: 09-13-2023 [facility]ulatory [facility] Start: 09-13-2023 End: 09-13-2023 Patient encounter procedure Pari Undrewood [facility] Start: 09-08-2023 ambulatory [facility] Under[facility] Start: 08-30-2023 End: 08-30-2023 [facility] Start: 08-13-2023 End: 08-13-2023 ambulatory Pari Underwood Facility:[facility] Start: 08-13-2023 End: 08-13-2023 Patient encounter procedure Prai Underwood [facility] Start: 08-04-2023 End: 08-04-2023 Office outpatient visit 15 minutes Nahed Stewart MD Work Phone: [facility] ADVERTISING DISPATCH CLERKS SUPERVISOR Comment on above: Vaginal discharge (P rimary Dx) Start: 08-04-2023 ambulatory [facility] Start: 07-28-2023 ambulatory Pari Underwood Facility: [facility] Start: 04-16-2023 End: 04-16-2023 Office outpatient visit 15 minutes Nahed Stewart MD Work Phone: [facility] ADVERTISING DISPATCH CLERKS SUPERVISOR Comment on above: STD exposure (Primar y Dx) Start: 04-16-2023 [facility] Start: 10-24-2022 End: 10-24-2022 Emergency department patient visit [facility] Start: 10-23-2022 [facility] Start: 10-23-2022 End: 10-23-2022 Patient encounter procedure Nahed Stewart MD Work Phone: [facility] Start: 10-23-2022 End: 10-23-2022 Periodic preventive med est patient 18-39 yrs Nahed Stewart MD Work Phone: [facility] [employer]VERTISING DISPATCH CLERKS SUPERVISOR Comment on above: Annual physical exam (Primary Dx) Start: 09-01-2022 [facility] Start: 09-01-2022 End: 09-01-2022 Office outpatient visit 15 minutes Nahed Stewart MD Work Phone: [facility] ADVERTISING DISPATCH CLERKS SUPERVISOR Comment on above: Mastitis (Primary Dx ) Start: 06-08-2022 End: 06-08-2022 Emergency department patient visit [facility] Start: 06-08-2022 End: 06-08-2022 Emergency department patient visit [facility] Start: 04-22-2022 [facility] Start: 04-22-2022 End: 04-22-2022 Office outpatient visit 15 minutes Nahed Stewart MD Work Phone: [facility] ADVERTISING DISPATCH CLERKS SUPERVISOR Comment on above: depressio n (Primary Dx) Start: 03-20-2022 [facility] Start: 03-20-2022 End: 03-20-2022 Office outpatient visit 15 minutes Nahed Stewart MD Work Phone: [facility] ADVERTISING DISPATCH CLERKS SUPERVISOR Comment on above: Anxiety (Primary Dx) Start: 03-13-2022 ambulatory NAHED STEWART [facility] Start: 10-24-2021 End: 10-24-2021 Office outpatient visit 15 minutes Nahed Stewart MD Work Phone: [facility] ADVERTISING DISPATCH CLERKS SUPERVISOR Comment on above: Genital herpes simpl ex virus (HSV) infection in mother affecting Start: 08-05-2021 End: 08-05-2021 Subsequent care visit Nahed Stewart MD Work Phone: [facility] [employer]VERTISING DISPATCH CLERKS SUPERVISOR Comment on above: Genital herpes simpl ex virus (HSV) infection in mother affecting (Primary Dx); Episodic cannabis use; LGSIL on Pap smear of cervix Start: 07-28-2021 End: 07-28-2021 Subsequent care visit Doyle Amaro MD Work Phone: [facility] ADVERTISING DISPATCH CLERKS SUPERVISOR Comment on above: 38 weeks gestation o f (Primary Dx); Encounter for supervision of normal first in third trimester; Hx of herpes genitalis; Episodic cannabis use Start: 07-14-2021 End: 07-14-2021 Subsequent care visit Malka Allison SALES COMMISSIONS ANALYST-ATTENDANT SALES Work Phone: [facility] ADVERTISING DISPATCH CLERKS SUPERVISOR Comment on above: Encounter for superv ision of normal first in third trimester (Primary Dx); 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 ; 34 weeks gestation of Start: 06-30-2021 End: 06-30-2021 Subsequent care visit Doyle Amaro MD Work Phone: [facility] ADVERTISING DISPATCH CLERKS SUPERVISOR Comment on above: Encounter for superv ision of normal first in third trimester (Primary Dx); Hx of herpes genitalis; 32 weeks gestation of Start: 06-16-2021 End: 06-16-2021 Subsequent care visit Malka Allison SALES [employer]ISSIONS [email or web address] Work Phone: [facility] ADVERTISING DISPATCH CLERKS SUPERVISOR Comment on above: Encounter for superv ision of normal first in third trimester (Primary Dx); 30 weeks gestation of Start: 06-10-2021 End: 06-10-2021 Subsequent hospital visit by physician Doyle Amaro MD Work Phone: [facility] Start: 06-02-2021 End: 06-02-2021 Subsequent care visit Nahed Stewart MD Work Phone: [facility] ADVERTISING DISPATCH CLERKS SUPERVISOR Comment on above: 28 weeks gestation o f (Primary Dx); Episodic cannabis use; LGSIL on Pap smear of cervix Start: 05-13-2021 End: 05-13-2021 Subsequent care visit Malka L Estefany SANDOVAL-ATTENDANT SALES Work Phone: [employer] [place] ADVERTISING DISPATCH CLERKS SUPERVISOR Comment on above: Encounter for superv ision of normal first in second trimester (Primary Dx); 25 weeks gestation of Start: 04-22-2021 End: 04-22-2021 Subsequent care visit Nahed Stewart MD Work Phone: [employer] ADVERTISING DISPATCH CLERKS SUPERVISOR Comment on above: LGSIL on Pap smear o f cervix; Episodic cannabis use Start: 04-22-2021 End: 04-22-2021 Subsequent hospital visit by physician Nahed Stewart MD Work Phone: [facility] Start: 03-13-2021 End: 03-13-2021 Subsequent care visit Doyle Amaro MD Work Phone: [employer] [place] ADVERTISING DISPATCH CLERKS SUPERVISOR Comment on above: Encounter for superv ision of normal first in second trimester (Primary Dx); LGSIL on Pap smear of cervix; Episodic cannabis use; Family history of diabetes mellitus in sister; Hx of bipolar disorder; Hx of herpes genitalis; 16 weeks gestation of Start: 03-13-2021 End: 03-13-2021 Subsequent hospital visit by physician Doyle Amaro MD Work Phone: [facility] Start: 02-06-2021 End: 02-06-2021 Subsequent care visit Doyle Amaro MD Work Phone: [employer] [place] ADVERTISING DISPATCH CLERKS SUPERVISOR Comment on above: Encounter for superv ision of normal first in first trimester (Primary Dx); Episodic cannabis use; Family history of diabetes mellitus in sister; Hx of bipolar disorder; 11 weeks gestation of ; 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 ; Rubella non-immune status, antepartum Start: 02-06-2021 End: 02-06-2021 Subsequent hospital visit by physician Doyle Amaro MD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
== END 2024-03-30 08:36 | disposition home or self-care (01) ==
LOC: LAB 08:35
PROVIDERS: Visit Provider Physician Assistant
DX: Z34.93 Encounter for supervision of normal pregnancy, unspecified, third trimester (principal)
CPT/HCPCS: 36415; 87081

== ENCOUNTER 2024-04-06 09:59 | Outpatient (OUT) | payer MEDICAID, SELFPAY ==
--- NOTE | 2024-04-06 10:13 | US_ITS ---
[address] [address] Patient Name: DEVAN SANTANA MRN: [id number] date: 2000 Sex: F Assigned Patient Location: [facility] Current Patient Location: [facility] Accession/Order Number: [id number] Exam Date: 04/06/2024 10:15 Report Date: 04/06/2024 10:44 At the request of: CHARLINE MIRZA Procedure: US OB BPP w non-stress EXAMINATION: US OB BPP w non-stress HISTORY:Nuchal cord COMPARISON: Ultrasound OB biophysical 03/21/2024 TECHNIQUE: Ultrasound biophysical profile was performed in the radiology department. BREATHING MOVEMENTS: 2 GROSS BODY MOVEMENTS: 2 TONE: 2 QUALITATIVE AMNIOTIC FLUID VOLUME: 2 PRESENTATION: CEPHALIC HEART RATE: 154.29 bpm AMNIOTIC FLUID VOLUME: 14.90 cm GESTATIONAL AGE: 37 weeks 0 days US/US OB BPP w non-stress IMPRESSION: 1. Total biophysical profile score: 8 2. Suspected nuchal cord. Electronically authenticated by: HAILEY MARS Date: 04/06/2024 10:44
--- OUTSIDE RECORDS SUMMARY | 2024-04-06 10:17 | XMS_ITS | CCD ---
Author Organization [facility] Care Team Providers Care [place] [employer] Name Role Phone Kelli Amaya Primary Care Provider [phone] Kelli Amaya Primary Care Provider [phone] Kelli Amaya Primary Care Provider [phone] Unavailable Primary Care Provider Kelli Moreno MD [...] Unavailable Kelli Amaya MD Primary Care Provider [phone] Kelli Amaya MD Primary Care Provider Pari Underwood Primary Care Physician [phone] PARI UNDERWOOD Primary Care Unavailable GAYLE ALLISON Attending Unavailable Pari Underwood Attending Unavailable Pari Underwood Attending Unavailable Adam, Astrit H Attending Unavailable Pari Underwood Attending Unavailable Justin Hewitt Attending Unavailable Adam, Astrit H Attending Unavailable Justin Hewitt Attending Unavailable Gina, [employer] [facility] Kalani L Attending Unavailable Unavailable Primary Care Provider Unavailabl e DOYLE AMARO Attending Unavailable DOYLE AMARO Referring [...] Primary Care Unavailable JEWELL MACEDO Attending Unavailable JEWELL MACEDO Attending Unavailable Allergies Allergy Classification Reported Allergen(s) Allergy Type Date of Onset Reaction(s) Facility (3 sources) No Known Medication Allergies; Translations: [No Known Medication Allergies] Propensity to adverse reactions (disorder) [facility] Repository Medications Current Medications Medication Drug Class(es) [...] Start: 08-13-2023 take 1 tablet by haris once daily, then take 2 tablets by mouth once daily aripiprazole 2 mg Tab See Instructions, 1 tab Oral Daily for two weeks, then increase to 2 tabs oral daily thereafter., # 45 tab(s), Refills(s) 0, Pharmacy: [facility] #[id number], 160, cm, 08/13/23 14:37:00 EDT, Height/Length Dosing, 58.9, kg, 08/13/23 14:37:00 EDT, Weight Dosing Start Date: 08/13/23 Status: Ordered cephalexin 500 mg oral capsule (4 sources) Cephalosporin Antibacterial Start: 02-28-2024 take 1 [...] Active diphenhydrAMINE hydrochloride 25 mg oral capsule (7 sources) Histamine-1 Receptor Antagonist take 1 capsule [...] propionate 0.05 mg/actuat metered dose nasal spray (5 sources) Corticosteroid Start: 02-19-2024 take 2 spray(s) nasal route once daily fluticasone (Flonase) 50 MCG/ACT nasal spray inhale 2 (TWO) sprays into each nostril daily 02/19/2024 Active Magnesium (15 sources) Magnesium 500 MG tablet Take by mouth. 0 Active Melatonin (15 sources) MELATONIN PO Tobias e by mouth. 0 Active metoclopramide 10 mg oral tablet (4 sources) Dopamine-2 Receptor Antagonist Start: 02-28-2024 take [...] omeprazole 20 mg delayed release oral capsule (12 sources) Proton Pump Inhibitor Start: 10-14-2023 take 1 capsule by mouth in the morning omeprazole (PriLOSEC) [address] capsule Take 20 mg by mouth in the morning. 10/14/2023 Active ondansetron 4 mg disintegrating oral tablet (18 sources) Serotonin-3 Receptor Antagonist Start: 09-24-2023 Ondansetron [...] pantoprazole 20 mg delayed release oral tablet (4 sources) Proton Pump Inhibitor Start: 02-28-2024 take 1 tablet by mouth once daily pantoprazole (ProtoNix) 20 MG EC tablet Take 20 mg by mouth Daily 02/28/2024 Active polysaccharide iron complex 391 mg oral capsule (4 sources) Start: 03-06-2024 End: 04-05-2024 take 1 capsule by mouth once daily iron polysaccharides (ProFe) 391.3 (180 Fe) MG capsule Indications: Other iron deficiency anemia Take 1 capsule (391.3 mg) by mouth Daily 30 capsule 3 03/06/2024 04/05/2024 Active 27-1 MG tablet (13 sources) take 1 tablet by mouth in [...] Sig (Original) acetaminophen 500 mg oral tablet (17 sources) Start: 09-28-2019 End: 09-28-2019 acetaminophen (TYLENOL) [...] unspecified] Onset: 09-16-2023 Episodic Other complications of (6 sources) Excessive growth affecting management of mother; [...] gestation of ] Episodic Residual codes; unclassified (7 sources) Gestation period, 32 weeks; Translations: [32 [...] Test Name Value Interpretation Reference Range Facility ALL MISCELLANEOUS TESTon MISCELLANEOUS TEST COMMENT . [facility] Comment on above: Test Ordered: [id number] Strep Gp B Culture+Rflx Strep Gp B Culture+Rflx Negative CB Reference Range: Negative Centers for Disease Control and Prevention (CDC) and [place] [employer] and Gynecologists (ACOG) guidelines for prevention of group B streptococcal (GBS) disease specify co-collection of a vaginal and rectal swab specimen to maximize sensitivity of GBS detection. Per the CDC and ACOG, swabbing both the lower vagina and rectum substantially increases the yield of detection compared with sampling the vagina alone. Penicillin G, ampicillin, or cefazolin are indicated for intrapartum prophylaxis of GBS colonization. Reflex susceptibility testing should be performed prior to use of clindamycin only on GBS isolates from penicillin- allergic women who are considered a high risk for anaphylaxis. Treatment with vancomycin without additional testing is warranted if resistance to clindamycin is noted. Performed at: [facility] [id number] Religious Healer: Brenton Montiel PhD, Phone: [phone] GROUP B STREP [id number] Group B Streptococcus Colonization Detection Culture With Re [facility] Urinalysis macro (dipstick) panel (U)on 03-06-2024 Bilirubin, UA Negative Negative - 4(70) +++ mg/dL [facility] Blood, UA Negative Negative - 50 Zackery/mcL [facility] Clarity, UA Clear [facility] Color, UA Yellow [facility] Glucose, UA Negative Negative - 2000(110) ++++ mg/dL [facility] Interpretation and review of laboratory results Normal [facility] Ketones, UA Negative Negative - 160(16) ++++ mg/dL [facility] Leukocytes, UA Negative Negative - 500+++ Katelyn/mcL [facility] Nitrite, UA Negative Negative - Positive [facility] pH, UA 7 5 - 9 [facility] Protein, UA Negative Negative - 2000(20) ++++ mg/dL [facility] Spec Grav, UA 1.015 1 - 1.03 [facility] Urobilinogen, UA 0.2 0.2 - 12 mg/dL [facility] ALL CBC WITH AUTO DIFFon BASOPHILS ABSOLUTE AUTO 0 [facility] Basophils/100 WBC (Bld) 0.5 % 0.2 - 2.0 % [facility] Eosinophils/100 WBC (Bld) 1 % 0.9 - 7.0 % [facility] Erythrocyte distribution width (RBC) [Ratio] 13.4 % 11.0 - 15.0 % [facility] Hematocrit (Bld) [Volume fraction] 29.5 % Low 36.0 - 48.0 % [facility] Hemoglobin (Bld) [Mass/Vol] 9.5 g/dL Low 12.0 - 16.0 g/dL [facility] IMMATURE GRANULOCYTES ABS AUTO 0.08 High [facility] Immature granulocytes/100 WBC (Bld) 1.9 % High 0.0 - 0.5 % [facility] Interpretation and review of laboratory results Abnormal [facility] LYMPHOCYTES ABSOLUTE AUTO 0.9 Low [facility] Lymphocytes/100 WBC (Bld) 21.7 % 20.5 - 60.0 % [facility] MCH (RBC) [Entitic mass] 27.1 pg 26.7 - 34.0 pg [facility] MCHC (RBC) [Mass/Vol] 32.2 g/dL 29.9 - 35.2 g/dL [facility] MCV (RBC) [Entitic vol] 84 fL 81.0 - 99.0 fL [facility] MONOCYTES ABSOLUTE AUTO 0.4 [facility] Monocytes/100 WBC (Bld) 9.3 % 1.7 - 12.0 % [facility] NEUTROPHILS ABSOLUTE AUTO 2.8 [facility] Neutrophils/100 WBC (Bld) 65.6 % 43.0 - 75.0 % [facility] Platelet mean volume (Bld) [Entitic vol] 9.2 fL Low 9.5 - 13.5 fL [facility] EO # 0 [facility] PLT 184 [facility] RBC 3.51 Low [facility] WBC 4.2 [facility] INFLUENZA A AND B AGon 1 04-29-2023 INFLUENZA VIRUS A ANTIGEN Negative [facility] Comment on above: Negative for Flu A p rotein antigen. Infection due to Flu A cannot be ruled out. Flu A antigen in the sample may be below the detection limit of the test. INFLUENZA VIRUS B ANTIGEN Negative [facility] Comment on above: Negative for Flu B p rotein antigen. Infection due to Flu B cannot be ruled out. Flu B antigen in the sample may be below the detection limit of the test. [facility] UA (CLEAN/CATCH) SANDING MACHINE TENDER AUTOMATIC/JEFFREY RO IF IND.on 02-26-2024 BILIRUBIN URINE SMALL Abnormal NEGATIVE [facility] BLOOD URINE SMALL Abnormal NEGATIVE [facility] Clarity (U) CLEAR CLEAR [facility] Color (U) LT. YELLOW YELLOW [facility] GLUCOSE URINE UA Negative NEGATIVE mg/dL [facility] Interpretation and review of laboratory results Abnormal [facility] Ketones Ql (U) >=80 Abnormal NEGATIVE mg/dL [facility] Leukocyte esterase Test strip Ql (U) Negative NEGATIVE [facility] NITRITE URINE Negative NEGATIVE [facility] pH (U) 6.0 [pH] 5.0 - 9.0 [facility] Protein (U) [Mass/Vol] 100 mg/dL Abnormal NEG/TRACE [facility] SPECIFIC GRAVITY URINE >=1.030 Abnormal 1.005 - 1.025 [facility] URINE MICROSCOPIC INDICATED YES [facility] UROBILINOGEN URINE 0.2 EU/dL 0.2 - 1.0 EU/dL [facility] TBH UA (CLEAN/CATCH) SANDING MACHINE TENDER AUTOMATIC/JEFFREY RO IF IND.on 02-18-2024 BILIRUBIN URINE Negative NEGATIVE [facility] BLOOD URINE Negative NEGATIVE [facility] Clarity (U) CLEAR CLEAR [facility] Color (U) LT. YELLOW YELLOW [facility] GLUCOSE URINE UA Negative NEGATIVE mg/dL [facility] Ketones Ql (U) Negative NEGATIVE mg/dL [facility] Leukocyte esterase Test strip Ql (U) Negative NEGATIVE [facility] NITRITE URINE Negative NEGATIVE [facility] pH (U) 7.5 [pH] 5.0 - 9.0 [facility] PROTEIN URINE Negative NEG/TRACE mg/dL [facility] SPECIFIC GRAVITY URINE 1.015 1.005 - 1.025 [facility] URINE MICROSCOPIC INDICATED NO [facility] UROBILINOGEN URINE 0.2 EU/dL 0.2 - 1.0 EU/dL [facility] RPRon 02-08-2024 Reagin Ab RPR Ql (S) Non-Reactive Normal NONREACTIVE A [facility] Comment on above: Result Comment: Test ing performed at [place] [address] Performed By: #### C TNG #### [place] [address] CBCon 02-07-2024 ABSOLUTE BAS 0.0 10*3/uL Normal 0.0-0.2 [facility] Comment on above: Result Comment: Test ing performed at [place] [address] Performed By: #### C TNG #### [place] [address] ABSOLUTE EOS 0.2 10*3/uL Normal 0.0-0.7 [facility] Comment on above: Performed By: #### C TNG #### [place] [address] ABSOLUTE NEUTROPHIL COUNT 8.6 10*3/uL High 1.4-6.5 [facility] Comment on above: Performed By: #### C TNG #### Testing performed at [address] [address] Basophils/100 WBC (Bld) 0.4 % Normal 0.0-2.0 [facility] Comment on above: Performed By: #### C TNG #### Testing performed at [address] [address] DTYPE AUTO DIFF Normal [facility] Comment on above: Performed By: #### C TNG #### Testing performed at [address] [address] Eosinophils/100 WBC (Bld) 2.0 % Normal 0.0-11.0 [facility] Comment on above: Performed By: #### C TNG #### Testing performed at [address] [address] Lymphocytes (Bld) [#/Vol] 1.4 10*3/uL Normal 1.2-3.4 [facility] Comment on above: Performed By: #### C TNG #### Testing performed at [address] [address] Lymphocytes/100 WBC (Bld) 12.9 % Low 20.0-55.0 [facility] Comment on above: Performed By: #### C TNG #### Testing performed at [address] [address] Monocytes (Bld) [#/Vol] 0.8 10*3/uL High 0.0-0.7 [facility] Comment on above: Performed By: #### C TNG #### Testing performed at [address] [address] Monocytes/100 WBC (Bld) 7.5 % Normal 0.0-10.0 [facility] Comment on above: Performed By: #### C TNG #### Testing performed at [address] [address] Neutrophils/100 WBC (Bld) 77.2 % High 37.0-75.0 [facility] Comment on above: Performed By: #### C TNG #### Testing performed at [place] [id number] Erythrocyte distribution width (RBC) [Ratio] 14.1 % Normal 11.5-14.5 [facility] Comment on above: Performed By: #### C TNG #### [place] [address] Hematocrit (Bld) [Volume fraction] 35.9 % Low 36.0-48.0 [facility] Comment on above: Performed By: #### C TNG #### [place] [address] Hemoglobin (Bld) [Mass/Vol] 11.6 g/dL Low 12.0-16.0 [facility] Comment on above: Performed By: #### C TNG #### [place] [address] MCH (RBC) [Entitic mass] 28.1 pg Normal 26.0-35.0 [facility] Comment on above: Performed By: #### C TNG #### [place] [address] MCHC (RBC) [Mass/Vol] 32.3 g/dL Normal 27.0-37.0 [facility] Comment on above: Performed By: #### C TNG #### Testing performed at [place] [id number] MCV (RBC) [Entitic vol] 87.1 fL Normal 80.0-100.0 [facility] Comment on above: Performed By: #### C TNG #### Testing performed at [place] [id number] Platelet mean volume (Bld) [Entitic vol] 8.5 fL Normal 7.4-11.0 [facility] Comment on above: Performed By: #### C TNG #### Testing performed at [place] [id number] Platelets (Bld) [#/Vol] 246 10*3/uL Normal 130-400 [facility] Comment on above: Performed By: #### C TNG #### Testing performed at [address] [address] RBC (Bld) [#/Vol] 4.12 10*6/uL Normal 4.0-5.4 [facility] Comment on above: Performed By: #### C TNG #### Testing performed at [address] [address] WBC (Bld) [#/Vol] 11.1 10*3/uL High 3.6-11.0 [facility] Comment on above: Performed By: #### C TNG #### Testing performed at [address] [address] CBC, EDIF, PLATELETon 2023 ABSOLUTE BASOPHIL COUNT 0.0 10*3/uL 0.0 - 0.2 10*3/uL [facility] Comment on above: Testing performed at [place], [place] [address] Basophils/100 WBC (Bld) 0.4 % 0.0 - 2.0 % [facility] Differential cell count method Nom (Bld) AUTO DIFF % [facility] Eosinophils (Bld) [#/Vol] 0.2 10*3/uL 0.0 - 0.7 10*3/uL [facility] Eosinophils/100 WBC (Bld) 2.0 % 0.0 - 11.0 % [facility] Erythrocyte distribution width (RBC) [Ratio] 14.1 % 11.5 - 14.5 % [facility] Hematocrit (Bld) [Volume fraction] 35.9 % Low 36.0 - 48.0 % [facility] Hemoglobin (Bld) [Mass/Vol] 11.6 g/dL Low [facility] Interpretation and review of laboratory results Abnormal [facility] Lymphocytes (Bld) [#/Vol] 1.4 10*3/uL 1.2 - 3.4 10*3/uL [facility] Lymphocytes/100 WBC (Bld) 12.9 % Low 20.0 - 55.0 % [facility] MCH (RBC) [Entitic mass] 28.1 pg 26.0 - 35.0 [facility] MCHC (RBC) [Mass/Vol] 32.3 g/dL [facility] MCV (RBC) [Entitic vol] 87.1 fL [facility] Monocytes (Bld) [#/Vol] 0.8 10*3/uL High 0.0 - 0.7 10*3/uL [facility] Monocytes/100 WBC (Bld) 7.5 % 0.0 - 10.0 % [facility] Neutrophils (Bld) [#/Vol] 8.6 10*3/uL High 1.4 - 6.5 10*3/uL [facility] Neutrophils/100 WBC (Bld) 77.2 % High 37.0 - 75.0 % [facility] Platelet mean volume (Bld) [Entitic vol] 8.5 fL [facility] Platelets (Bld) [#/Vol] 246 10*3/uL 130 - 400 10*3/uL [facility] RBC (Bld) [#/Vol] 4.12 10*6/uL 4.0 - 5.4 10*6/uL [facility] WBC (Bld) [#/Vol] 11.1 10*3/uL High 3.6 - 11.0 10*3/uL [facility] GLUCOSE POST LOADINGon 02-06 Glucose 1 Hr post 50 g glucose PO [Mass/Vol] 70 mg/dL [facility] Comment on above: Testing performed at [address] GLUCOSE POST LOADING 70 MG/DL Normal 65-140 [facility] Comment on above: Result Comment: Test ing performed at [place] [address] Performed By: #### C TNG #### [place] [address] Family Medicine Office/Clini c Noteon 01-25-2024 Family [...] Ordered: New Preventive 18 to 39 years [address] 2. Non-smoker (Z78.9: Other specified health status) continue not smoking Ordered: New Preventive 18 to 39 years [address] 3. BMI 27.0-27.9,adult (Z68.27: Body mass index [BMI] 27.0-27.9, adult) Pt is 27 weeks Ordered: New Preventive 18 to 39 years [address] 4. Overweight (BMI 25.0-29.9) (E66.3: Overweight) see above Ordered: New Preventive 18 to 39 years [address] Follow-up No qualifying data available Problem List/Past [...] diphtheria/pertussis , acel/tetanus adult 06/02/2021 Recorded Normal [facility] Comment on above: Result Comment: Elec tronically Signed By: Kalani Calvo\.king\Date and Time Signed: 01/25/24 10:29 EST AFP TETRAon 11-14-2023 AFP MOM 1.01 [facility] AFP VALUE 36.1 [facility] Comment on above: Result Comment: Unit : ng/mL COMMENT: Comment [facility] Comment on above: Result Comment: (NOT E) Lorie Nieto, Ph.D., [facility] Director References: Available Upon Request. Multiples Of Median Cutoffs Abbreviation Definitions For AFP Elevations IDD- Insulin Dep Diabetes [place] 2.5 Black 2.8 OSBR- Open Spina Bifida IDD 2.0 Twins 4.5 Risk DSR Cutoff 1:270 DSR- Down Syndrome Risk T18 Cutoff 1:100 T18- Trisomy 18 For further inquiries contact [employer] at [phone]. This test was developed and its performance characteristics determined by [employer]. It has not been cleared or approved by the Food and Drug Administration. PERFORMED AT [facility] RTP MIGUEL ANGEL MOM 0.69 [facility] MIGUEL ANGEL VALUE 117.78 [facility] Comment on above: Result Comment: Unit : pg/mL DSR (2ND TRIM.) 1 [place] [address] [facility] DSR (BY AGE) 1 [place] 1133 [facility] GEST AGE BASED ON COLLECTION DATE 16.3 [facility] Comment on above: Result Comment: Unit : WEEKS CORRECTED ON 11/13 AT 0106: PREVIOUSLY REPORTED 16.2 UNIT:WEEKS GEST. AGE BASED ON SEBASTIAN [facility] Comment on above: Result Comment: 04/08 CORRECTED ON 11/13 AT 0106: PREVIOUSLY REPORTED SEBASTIAN ULTRASOUND HCG MOM 0.80 [facility] HCG VALUE [address] [facility] Comment on above: Result Comment: Unit : mIU/mL INSULIN DEP DIABETES Comment [facility] Comment on above: Result Comment: Not provided. CORRECTED ON 11/13 AT 0106: PREVIOUSLY REPORTED NO INTERPRETATION Comment [facility] Comment on above: Result Comment: [...] identifies 60% of Trisomy 18 pregnancies. The [place] [employer] recommends amniocentesis be offered to women age 35 and older. Recalculations are not recommended when gestational dating by LMP and ultrasound are within 10 days. MATERNAL AGE AT SEBASTIAN 21.8 [facility] Comment on above: Result Comment: Unit : yr CORRECTED ON 11/13 AT 0106: PREVIOUSLY REPORTED 23 UNIT:YR MULTIPLE GESTATION No [facility] Comment on above: Result Comment: KENNETH ECTED ON 11/13 AT 0106: PREVIOUSLY REPORTED NO OSBR RISK 1 [place] [address] [facility] RACE Comment [facility] Comment on above: Result Comment: Not provided. CORRECTED ON 11/13 AT 0106: PREVIOUSLY REPORTED RESULTS Report [facility] T18 (BY AGE) 1:4412 [facility] T18 RISK Not increased [facility] TEST RESULTS Negative [facility] UE3 MOM 1.04 [facility] UE3 VALUE 0.95 [facility] Comment on above: Result Comment: Unit : ng/mL AFP TETRAon 11-11-2023 WEIGHT 141 [facility] Comment on above: Result Comment: Unit : lbs HEMOGLOBIN A1Con 11-11-2023 Glucose [Mass/Vol] 97 mg/dL [facility] Comment on above: Testing performed at [place], [place] [address] HbA1c (Bld) [Mass fraction] 5.0 % 0 - 6 % [facility] Comment on above: NORMAL <5.7% PREDIABETES 5.7-6.4% DIABETES 6.5% OR HIGHER [facility] Glucose [Mass/Vol] 97 mg/dL [facility] Comment on above: Result Comment: Test ing performed at [place] [address] Performed By: #### C TNG #### [place] [address] HbA1c (Bld) [Mass fraction] 5.0 % Normal 0-6 [facility] Comment on above: Result Comment: NORMAL <5.7% PREDIABETES 5.7-6.4% DIABETES 6.5% OR HIGHER Performed By: #### C TNG #### [place] [address] PA IG,CT NG,RFX HPV ASCUon 0 10-20-2023 CHLAMYDIA,NUC. ACID AMP Negative [facility] Comment on above: Result Comment: Refe rence range: Negative PERFORMED AT [facility] DIAGNOSIS: Comment [facility] Comment on above: Result Comment: NEGA TIVE FOR INTRAEPITHELIAL LESION OR MALIGNANCY. PERFORMED AT [facility] GONOCOCCUS,NUC. ACID AMP Negative [facility] Comment on above: Result Comment: Refe rence range: Negative (NOTE) Source.............Cervix;Endocervix Other.............. No. of containers..01 ThinPrep Vial PERFORMED AT [facility] NOTE: Comment [facility] Comment on above: Result Comment: (NOT E) The Pap smear is a screening test designed to aid in the detection of premalignant and malignant conditions of the uterine cervix. It is not a diagnostic procedure and should not be used as the sole means of detecting cervical cancer. Both false-positive and false-negative reports do occur. PERFORMED AT [facility] PERFORMED BY: Comment [facility] Comment on above: Result Comment: Linda Traore, Weed Sprayer (ASCP) PERFORMED AT [facility] SPECIMEN ADEQUACY: Comment [facility] Comment on above: Result Comment: (NOT E) Satisfactory for evaluation. Endocervical and/or squamous metaplastic cells (endocervical component) are present. PERFORMED AT [facility] TEST METHODOLOGY: Comment Normal [facility] Comment on above: Result Comment: (NOT E) This liquid based ThinPrep(R) pap test was screened with the use of an image guided system. PERFORMED AT [facility] RPRon 09-27-2023 Reagin Ab RPR Ql (S) Non-Reactive Normal NONREACTIVE A [facility] Comment on above: Result Comment: Test ing performed at [place] [address] Performed By: #### A CBC, ARPR, RUBL, GHIV #### [place] [address] #### LVZG #### Testing performed at [facility] [address] [place] [address] [place] [address] RUBELLA SCREENon 09-27-2023 RUBELLA SCREEN Negative Abnormal POSITIVE [facility] Comment on above: Result Comment: Test ing performed at [place] [address] Performed By: #### A CBC, ARPR, RUBL, GHIV #### [place] [address] #### LVZG #### Testing performed at [place] [address] [address] [place] [address] US 1st Trimesteron 09-27-2023 US 1st Trimester [...] corresponding gestational age +/- 1 week are: [place] Rump Length: 2.8 cm Composite Ultrasound Age: [...] (Electronic Signature): 09/27/2023 9:19 am Signed by: dEis Richards MD Transcribed by: DEEPAK Technologist: AYAN Technical Comments LMP : 07/20/23 Regular History 2 Para 1 Transabdominal Ultrasound Performed Placenta Location posterior Size = Dates Uterus Position Anteverted Normal [facility] ABO/Rhon 09-26-2023 ABO/Rh Positive Invalid Interpretation Code [facility] Comment on above: Performed By: #### 2 [id number] #### [facility] Laboratory [address] [place] [address] BLOOD BANKOrdered By: Cherelle Flaherty on 09-26-2023 ABO/Rh Interp Positive Invalid Interpretation Code [facility] [place] Subsection BhCG Quanton 09-26-2023 HCG.beta subunit Qn [id number] m[IU]/mL High 1-3 [facility] Comment on above: Result Comment: 'F N ON < 1 - 3' ' 0.2 - 1 WEEK = 5 TO 50' ' 1 - 2 WEEKS = 50 - 500' ' 2 - 3 WEEKS = 100 - 5000' ' 3 - 4 WEEKS = 500 - 23951' ' 4 - 5 WEEKS = 1000 - 17789' ' 5 - 6 WEEKS = 85406 - 927731' ' 6 - 8 WEEKS = 77019 - 565848' ' 8 - 12 WEEKS = 55309 - 265877' Performed By: #### 2 [id number] #### [facility] Laboratory [address] [place] [address] CBC w/ Auto Diffon 4 Basophils/100 WBC (Bld) 0.6 % Normal 0.0-2.0 [facility] Comment on above: Performed By: #### 2 [id number] #### [facility] [address] [place] [address] Basophils/Leukocytes Auto (Bld) [Pure # fraction] 0.1 E9/L Normal 0.0-0.2 [facility] Comment on above: Performed By: #### 2 094222 #### [facility] [address] [place] [address] Eosinophils (Bld) [#/Vol] 0.1 E9/L Normal 0.0-0.5 [facility] Comment on above: Performed By: #### 2 619209 #### [facility] [address] [place] [address] Eosinophils/100 WBC (Bld) 1.0 % Normal 0.0-8.0 [facility] Comment on above: Performed By: #### 2 784893 #### [facility] [address] [place] [address] Erythrocyte distribution width (RBC) [Ratio] 13.7 % Normal 10.9-14.2 [facility] Comment on above: Performed By: #### 2 074711 #### [facility] [address] [place] [address] Hematocrit (Bld) [Volume fraction] 36.6 % Normal 34.0-46.0 [facility] Comment on above: Performed By: #### 2 377566 #### [facility] [address] [place] [address] Hemoglobin (Bld) [Mass/Vol] 12.6 g/dL Normal 12.0-16.0 [facility] Comment on above: Performed By: #### 2 083828 #### [facility] [address] [place] [address] Lymphocytes (Bld) [#/Vol] 1.1 E9/L Normal 1.0-4.0 [facility] Comment on above: Performed By: #### 2 366899 #### [facility] [address] [place] [address] Lymphocytes/100 WBC (Bld) 12.2 % Low 14.0-50.0 [facility] Comment on above: Performed By: #### 2 648000 #### [facility] [address] [place] [address] MCH (RBC) [Entitic mass] 29.3 pg Normal 27.0-34.0 [facility] Comment on above: Performed By: #### 2 944752 #### [facility] [address] [place] [address] MCHC (RBC) [Mass/Vol] 34.4 g/dL Normal 31.4-36.0 [facility] Comment on above: Performed By: #### 2 758369 #### [facility] [address] [place] [address] MCV (RBC) [Entitic vol] 85.1 fL Normal 80.0-100.0 [facility] Comment on above: Performed By: #### 2 804844 #### [facility] [address] [place] [address] Monocytes (Bld) [#/Vol] 0.8 E9/L Normal 0.2-1.0 [facility] Comment on above: Performed By: #### 2 603099 #### [facility] [address] [place] [address] Neutrophils (Bld) [#/Vol] 7.1 E9/L Normal 2.0-7.5 [facility] Comment on above: Performed By: #### 2 019803 #### [facility] [address] [place] [address] Neutrophils/100 WBC (Bld) 77.8 % High 36.0-75.0 [facility] Comment on above: Performed By: #### 2 303609 #### [facility] [address] [place] [address] Platelet 265.0 E9/L Normal 150.0-500.0 [facility] Comment on above: Performed By: #### 2 657058 #### [facility] [address] [place] [address] Platelet mean volume (Bld) [Entitic vol] 8.0 fL Normal 6.4-10.8 [facility] Comment on above: Performed By: #### 2 413490 #### [facility] [address] [place] [address] RBC (Bld) [#/Vol] 4.3 E12/L Normal 4.3-5.9 [facility] Comment on above: Performed By: #### 2 079766 #### [facility] [address]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 Hemoglobin Auto test strip (U) [Mass/Vol] Negative Normal Negative [facility] Comment on above: Performed By: #### 4 [id number] #### [facility] [address] [place] [address] Ketones Auto test strip Ql (U) Negative Normal Negative [facility] Comment on above: Performed By: #### 4 [id number] #### [facility] [address] [place] [address] Leukocyte esterase Auto test strip Ql (U) Negative Normal Negative [facility] Comment on above: Performed By: #### 4 [id number] #### [facility] [address] [place] [address] Nitrite Auto test strip Ql (U) Negative Normal Negative [facility] Comment on above: Performed By: #### 4 [id number] #### [facility] [address] [place] [address] pH (U) 6.5 [pH] Invalid Interpretation Code 5.0-9.0 [facility] Comment on above: Performed By: #### 4 [id number] #### [facility] [address] [place] [address] Protein Ql (U) Negative Normal Negative [facility] Comment on above: Performed By: #### 4 [id number] #### [facility] [address] [place] [address] Specific gravity (U) [Rel density] 1.017 Invalid Interpretation Code 1.005-1.030 [facility] Comment on above: Performed By: #### 4 [id number] #### [facility] [address] [place] [address] Urobilinogen (U) [Mass/Vol] Negative Normal Negative [facility] Comment on above: Performed By: #### 4 [id number] #### [facility] [address] [place] [address] Type of Urine collection method Clean Catch Normal [facility] Comment on above: Performed By: #### 4 [id number] #### [facility] [address] [place] [address] URINALYSISOrdered By: SYSTEM SYSTEM on 09-16-2023 Bilirubin Ql (U) Negative Normal Negativemg/dL [facility] UA Auto SS Clarity (U) Clear (09/16/23 8:46 AM) Normal Clear [facility] UA Auto SS Color (U) Light-Yellow 1 (09/16/23 8:46 AM) Normal Yellow [facility] UA Auto SS Comment on above: Interpretive Data: M icroscopic readings are only performed on those samples that meet specific criteria set forth by [facility]. Glucose Ql (U) Negative Normal Negativemg/dL [facility] UA Auto SS Hemoglobin Auto test strip (U) [Mass/Vol] Negative Normal Negativemg/dL [facility] UA Aut o SS Ketones Auto test strip Ql (U) Negative Normal Negativemg/dL [facility] UA Auto SS Leukocyte esterase Auto test strip Ql (U) Negative Normal NegativeLeu/uL [facility] UA Auto SS Nitrite Auto test strip Ql (U) Negative Normal Negativemg/dL [facility] UA Auto SS pH (U) 6.5 *NA* (09/16/23 8:46 AM) Invalid Interpretation Code 5.0 - 9.0 [facility] UA Auto SS Protein Ql (U) Negative Normal Negativemg/dL [facility] UA Auto SS Specific gravity (U) [Rel density] 1.017 *NA* (09/16/23 8:46 AM) Invalid Interpretation Code 1.005 - 1.030 [facility] UA Auto SS Urobilinogen (U) [Mass/Vol] Negative Normal Negativemg/dL [facility] UA Auto SS URINALYSISOrdered By: Dulce Lockett on 09-16-2023 UA Spec Desc Clean Catch (09/16/23 8:46 AM) Normal [facility] UA Auto SS Ambulatory Visit Summaryon 0 [...] When: In 3 months Where: [address] [place] [phone] Medications What How Much When Instructions New aripiprazole (aripiprazole 5 mg Tab) 1 Tablets By Mouth Every day Refills: 2 Pickup at [id number] Unchanged lactobacillus acidophilus (Acidophilus Probiotic Blend) Pharmacy Information [id number]: [address], [place] [id number] [phone] Allergies No Known Medication Allergies Problems Ongoing - Any problem that you are currently receiving treatment for. BMI 23.0-23.9, adult Patient Survey You may receive a survey via text or e-mail asking about your office visit. Please share your experience with us by completing your survey. We appreciate your feedback and thank you for choosing us for your care. Normal [facility] ED Note-Physicianon 08-31-19 ED Note-Physician [id number] #1.00TIFF Normal [facility] CBC with Diffon 08-30-2023 Abs. Basophil 0.04 k/uL Normal 0.00-0.20 [facility] Comment on above: Performed By: #### C DP #### [facility] [address] [place] [address] Religious Healer: Gio Peña MD Abs.Imm.Granulocyte 0.02 k/uL Normal 0.00-0.30 [facility] Comment on above: Performed By: #### C DP #### [facility] [address] [place] [address] Religious Healer: Gio Peña MD Abs.Neutrophil (Seg) 4.62 k/uL Normal 2.5-7.0 [facility] Comment on above: Performed By: #### C DP #### [facility] [address] [place] [address] Religious Healer: Gio Peña MD Basophils/100 WBC (Bld) 1 % Normal 0-2 [facility] Comment on above: Performed By: #### C DP #### [facility] [address] [place] [address] Religious Healer: Gio Peña MD Eosinophils (Bld) [#/Vol] 0.09 10*3/uL Normal 0.00-0.40 [facility] Comment on above: Performed By: #### C DP #### [facility] [address] [place] [address] Religious Healer: Gio Peña MD Eosinophils/100 WBC (Bld) 1 % Normal 0-5 [facility] Comment on above: Performed By: #### C DP #### [facility] [address] [place] [id number] Religious Healer: Gio Peña MD Erythrocyte distribution width (RBC) [Ratio] 12.8 % Normal 12.1-15.2 [facility] Comment on above: Performed By: #### C DP #### [facility] [address] [place] [address] Religious Healer: Gio Peña MD Hematocrit (Bld) [Volume fraction] 38.0 % Normal 36.0-46.0 [facility] Comment on above: Performed By: #### C DP #### [facility] [address] [place] [phone] Religious Healer: Gio Peña MD Hemoglobin (Bld) [Mass/Vol] 12.5 g/dL Normal 12.0-16.0 [facility] Comment on above: Performed By: #### C DP #### [facility] [address] [place] [id number] Religious Healer: Gio Peña MD Immature granulocytes/100 WBC (Bld) 0 % Normal 0-5 [facility] Comment on above: Performed By: #### C DP #### [facility] [address] [place] [id number] Religious Healer: Gio Peña MD Lymphocytes (Bld) [#/Vol] 1.87 10*3/uL Normal 1.00-4.80 [facility] Comment on above: Performed By: #### C DP #### [facility] [address] [place] [id number] Religious Healer: Gio Peña MD Lymphocytes/100 WBC (Bld) 26 % Normal 15-40 [facility] Comment on above: Performed By: #### C DP #### [facility] [address] [place] [phone] Religious Healer: Gio Peña MD MCH (RBC) [Entitic mass] 28.2 pg Normal 26.0-34.0 [facility] Comment on above: Performed By: #### C DP #### [facility] [address] [place], [place] [phone] Religious Healer: Gio Peña MD MCHC (RBC) [Mass/Vol] 32.9 g/dL Normal 31.0-37.0 [facility] Comment on above: Performed By: #### C DP #### [facility] [address] [place] [address] Religious Healer: Gio Peña MD MCV (RBC) [Entitic vol] 85.8 fL Normal 80.0-100.0 [facility] Comment on above: Performed By: #### C DP #### [facility] [address] [place] [address] [phone] Religious Healer: Gio Peña MD Monocytes (Bld) [#/Vol] 0.55 10*3/uL Normal 0.00-1.00 [facility] Comment on above: Performed By: #### C DP #### [facility] [address] [place] [address] Religious Healer: Gio Peña MD Monocytes/100 WBC (Bld) 8 % Normal 4-8 [facility] Comment on above: Performed By: #### C DP #### [facility] [address] [place], [place] [phone] Religious Healer: Gio Peña MD Neutrophil (Seg) 64 % Normal 47-75 [facility] Comment on above: Performed By: #### C DP #### [facility] [address] [place], [place] [phone] Religious Healer: Gio Peña MD Platelet mean volume (Bld) [Entitic vol] 9.7 fL Normal 6.0-12.0 [facility] Comment on above: Performed By: #### C DP #### [facility] [address] [place], [place] [phone] Religious Healer: Gio Peña MD Platelets (Bld) [#/Vol] 265 10*3/uL Normal 140-450 [facility] Comment on above: Performed By: #### C DP #### [facility] [address] [place] [address] Religious Healer: Gio Peña MD RBC (Bld) [#/Vol] 4.43 10*6/uL Normal 4.00-5.20 [facility] Comment on above: Performed By: #### C DP #### [facility] [address] [place] [address] Religious Healer: Gio Peña MD WBC (Bld) [#/Vol] 7.2 10*3/uL Normal 4.5-13.5 [facility] Comment on above: Performed By: #### C DP #### [facility] [address] [place] [address] Religious Healer: Gio Peña MD HCG, Quanton 08-30-2023 HCG, Quant 56745.0 mIU/mL High <5 [facility] Comment on above: Result Comment: Non-preg premeno <=5 Postmeno <=8 Male <=3 If HCG results do not concur with clinical observations, additional testing to confirm results is recommended. Performed By: #### B HCG #### [facility] [address] [place] [address] Religious Healer: Gio Peña MD Type + Screenon 08-30-2023 Type + Screen Sample Expiration 09/02/2023,2359 ABO/Rh(D) O POSITIVE Antibody Screen NEGATIVE Normal [facility] Comment on above: Performed By: #### T YS #### [facility] [address] [place] [address] Religious Healer: Gio Peña MD Family Medicine Office/Clini c Noteon 08-19-2023 Family Medicine Office/Clinic Note Chief Complaint Establishing care, New to [facility]. c/o mental health, migraines HPI Staff [...] side effects, signs (more content not included)... [facility] Comment on above: Result Comment: Elec tronically Signed By: Pari Underwood PA-C\.br\Date and Time Signed: 08/19/23 20:54 EDT\.br\Electronically Co-Signed By: Julia Rodriguez\.br\Date and Time Co-Signed: 08/13/23 17:18 EDT [employer] 08-16-2023 Forms [id number]# 1.00TIFF [facility] Ambulatory Visit Summaryon 0 [...] AM EDT With: Pari Underwood PA-C Where: [facility] [place] [facility] Patient Educationon 08-13-19 Patient Education Mental and [...] pray, or go to a place of adventism. ? Do some deep breathing. To do [...] or salt (sodium). General instructions ? Take ooqr-xvs-jfgwpiq and prescription medicines only as told by [...] [facility] (more content not included)... Normal [facility] CHLAMYDIA/GCon 08-04-2023 CHLAMYDIA TRACH Not detected Normal NOT DETECTED [facility] Comment on above: Performed By: #### C TNG #### Testing performed at [facility] [address] [place] [address] N.GONORRHOEAE Not detected Normal NOT DETECTED [facility] Comment on above: Result Comment: TEST ING PERFORMED BY PCR Testing performed at [place] [address] Performed By: #### C TNG #### [place] [address] CHLAMYDIA/GONOCOCCUS, NAAon 08-04-2023 CHLAMYDIA TRACHOMATIS Not detected NOT DETECTED [facility] NEISSERIA GONORRHOEAE Not detected NOT DETECTED [facility] Comment on above: TESTING PERFORMED BY PCR Testing performed at [address] TRICH VAGon 08-04-2023 TRICH VAG Not detected Normal NOT DETECTED [facility] Comment on above: Result Comment: TEST ING PERFORMED BY PCR Testing performed at [place] [address] Performed By: #### A TV #### [place] [address] TRICHOMONAS VAGINALIS, NAAon 08-04-2023 T. vaginalis rRNA TELMA+probe Ql (Unsp spec) Not detected NOT DETECTED [facility] Comment on above: TESTING PERFORMED BY PCR Testing performed at [address] CHLAMYDIA/GCon 04-16-2023 CHLAMYDIA TRACH Not detected Normal NOT DETECTED [facility] Comment on above: Performed By: #### C TNG #### [place] [address] N.GONORRHOEAE Not detected Normal NOT DETECTED [facility] Comment on above: Result Comment: TEST ING PERFORMED BY PCR Testing performed at [place] [address] Performed By: #### C TNG #### [place] [address] CHLAMYDIA/GONOCOCCUS, NAAon 04-16-2023 CHLAMYDIA TRACHOMATIS Not detected NOT DETECTED [facility] NEISSERIA GONORRHOEAE Not detected NOT DETECTED [facility] Comment on above: TESTING PERFORMED BY PCR Testing performed at [address] TRICH VAGon 04-16-2023 TRICH VAG Not detected Normal NOT DETECTED [facility] Comment on above: Result Comment: TEST ING PERFORMED BY PCR Testing performed at [place] [address] Performed By: #### C TNG #### [place] [address] TRICHOMONAS VAGINALIS, NAAon 04-16-2023 T. vaginalis rRNA TELMA+probe Ql (Unsp spec) Not detected NOT DETECTED [facility] Comment on above: TESTING PERFORMED BY PCR Testing performed at [address] XR RIBS WITH CHEST, RIGHTon 10-24-2022 [...] fractures identified. IMPRESSION: No acute findings. Normal [facility] CHLAMYDIA/GCon 10-23-2022 CHLAMYDIA TRACH Not detected Normal NOT DETECTED [facility] Comment on above: Performed By: #### C TNG #### [place] [address] N.GONORRHOEAE Not detected Normal NOT DETECTED [facility] Comment on above: Result Comment: TEST ING PERFORMED BY PCR Testing performed at [place] [address] Performed By: #### C TNG #### [place] [address] CHLAMYDIA/GONOCOCCUS, NAAon 10-23-2022 CHLAMYDIA TRACHOMATIS Not detected NOT DETECTED [facility] NEISSERIA GONORRHOEAE Not detected NOT DETECTED [facility] Comment on above: TESTING PERFORMED BY PCR Testing performed at [address] TRICH VAGon 10-23-2022 TRICH VAG Not detected Normal NOT DETECTED [facility] Comment on above: Result Comment: TEST ING PERFORMED BY PCR Testing performed at [place] [address] Performed By: #### A TV #### [place] [address] TRICHOMONAS VAGINALIS, NAAon 10-23-2022 T. vaginalis rRNA TELMA+probe Ql (Unsp spec) Not detected NOT DETECTED [facility] Comment on above: TESTING PERFORMED BY PCR Testing performed at [place], [place] [address] [facility] CBC, EDIF, PLATELETon 2021 ABSOLUTE BASOPHIL COUNT 0.0 10*3/uL 0.0 - 0.2 10*3/uL [facility] Comment on above: Testing performed at [place], [place] [address] Basophils/100 WBC (Bld) 0.5 % 0.0 - 2.0 % [facility] Differential cell count method Nom (Bld) AUTO DIFF % [facility] Eosinophils (Bld) [#/Vol] 0.20 10*3/uL 0.0 - 0.7 10*3/uL [facility] Eosinophils/100 WBC (Bld) 1.9 % 0.0 - 11.0 % [facility] Erythrocyte distribution width (RBC) [Ratio] 13.1 % 11.5 - 14.5 % [facility] Hematocrit (Bld) [Volume fraction] 32.9 % Low 36.0 - 48.0 % [facility] Hemoglobin (Bld) [Mass/Vol] 11.5 g/dL Low [facility] Interpretation and review of laboratory results Abnormal [facility] Lymphocytes (Bld) [#/Vol] 1.50 10*3/uL 1.2 - 3.4 10*3/uL [facility] Lymphocytes/100 WBC (Bld) 17.3 % Low 20.0 - 55.0 % [facility] MCH (RBC) [Entitic mass] 31.1 pg 26.0 - 35.0 PG [facility] MCHC (RBC) [Mass/Vol] 35.0 g/dL [facility] MCV (RBC) [Entitic vol] 89.0 fL [facility] Monocytes (Bld) [#/Vol] 0.8 10*3/uL High 0.0 - 0.7 10*3/uL [facility] Monocytes/100 WBC (Bld) 8.6 % 0.0 - 10.0 % [facility] Neutrophils (Bld) [#/Vol] 6.3 10*3/uL 1.4 - 6.5 10*3/uL [facility] Neutrophils/100 WBC (Bld) 71.7 % 37.0 - 75.0 % [facility] Platelet mean volume (Bld) [Entitic vol] 8.4 fL [facility] Platelets (Bld) [#/Vol] 226 10*3/uL 130.0 - 400.0 10*3/uL [facility] RBC (Bld) [#/Vol] 3.69 10*6/uL Low 4.0 - 5.4 10*6/uL [facility] WBC (Bld) [#/Vol] 8.8 10*3/uL 3.6 - 11.0 10*3/uL [facility] GLUCOSE POST LOADINGon 06-02 Glucose 1 Hr post 50 g glucose PO [Mass/Vol] 93 mg/dL [facility] Comment on above: Testing performed at [address] COLPOSCOPYon 03-13-2021 Doyle Amaro MD 03/13/2021 [...] as needed for mild to moderate pain. [facility] Narrative [Interpretat ion] Study observation general USon 02-06-2021 : 1. Single of 11 weeks and 5 days. 2. heart rate of 168 bpm. 3. US SEBASTIAN 08/23/2021, which is inconsistent with SEBASTIAN by LMP and should be changed. [facility] REFERRING PHYSICIAN: Dr. Amaro TECHNOLOGIST: Ashley Acosta PROCEDURE DATE : 02/06/2021 INDICATIONS: Early gestational, dating LMP 11/09/2020, SEBASTIAN 08/16/2021 PROCEDURE DETAILS A single was noted within the uterus. heart rate of 168 bpm. The CRL measures 5.03 cm , 11 weeks 5 days. FINAL [facility] Radiology Study observation (narrative) [facility] ABO/RH(D) TYPINGon ABO and Rh group Nom (Bld ) Positive [facility] ABO and Rh group Nom (Bld ) Testing performed at [place] [id number] [facility] ANTIBODY SCREENon 01-14-2021 Blood group antibody screen Ql Negative [facility] EXPIRATION DATE 01/17/2021,2359 [facility] EXPIRATION DATE Testing performed at [place], [place] [address] [facility] CBC, EDIF, PLATELETon 2020 ABSOLUTE BASOPHIL COUNT 0.0 10*3/uL 0.0 - 0.2 10*3/uL [facility] Comment on above: Testing performed at [place], [place] [address] Basophils/100 WBC (Bld) 0.6 % 0.0 - 2.0 % [facility] Differential cell count method Nom (Bld) AUTO DIFF % [facility] Eosinophils (Bld) [#/Vol] 0.10 10*3/uL 0.0 - 0.7 10*3/uL [facility] Eosinophils/100 WBC (Bld) 1.3 % 0.0 - 11.0 % [facility] Erythrocyte distribution width (RBC) [Ratio] 13.5 % 11.5 - 14.5 % [facility] Hematocrit (Bld) [Volume fraction] 35.9 % Low 36.0 - 48.0 % [facility] Hemoglobin (Bld) [Mass/Vol] 12.2 g/dL [facility] Interpretation and review of laboratory results Abnormal [facility] Lymphocytes (Bld) [#/Vol] 2.40 10*3/uL 1.2 - 3.4 10*3/uL [facility] Lymphocytes/100 WBC (Bld) 34.3 % 20.0 - 55.0 % [facility] MCH (RBC) [Entitic mass] 28.7 pg 26.0 - 35.0 PG [facility] MCHC (RBC) [Mass/Vol] 33.9 g/dL [facility] MCV (RBC) [Entitic vol] 84.7 fL [facility] Monocytes (Bld) [#/Vol] 0.7 10*3/uL 0.0 - 0.7 10*3/uL [facility] Monocytes/100 WBC (Bld) 9.7 % 0.0 - 10.0 % [facility] Neutrophils (Bld) [#/Vol] 3.8 10*3/uL 1.4 - 6.5 10*3/uL [facility] Neutrophils/100 WBC (Bld) 54.1 % 37.0 - 75.0 % [facility] Platelet mean volume (Bld) [Entitic vol] 9.3 fL [facility] Platelets (Bld) [#/Vol] 289 10*3/uL 130.0 - 400.0 10*3/uL [facility] RBC (Bld) [#/Vol] 4.23 10*6/uL 4.0 - 5.4 10*6/uL [facility] WBC (Bld) [#/Vol] 7.1 10*3/uL 3.6 - 11.0 10*3/uL [facility] HIV 1+2 Ab+HIV1 p24 Ag IA Ql on 01-14-2021 HIV 1+2 Ab IA Ql Non-Reactive NONREACTIVE [facility] Comment on above: Testing performed at [place], [place] [address] [facility] RAPID TOX SCREEN WITH RELEX TO DRUGMCon 01-14-2021 Amphetamine (U) [Mass/Vol] Negative NEGATIVE NG/ML [facility] Comment on above: <500 ng/ml CUTOFF Barbiturates Screen Ql (U) Negative NEGATIVE NG/ML [facility] Comment on above: <200 ng/ml CUTOFF Benzodiazepines Ql (U) Negative NEGATIVE NG/ML [facility] Comment on above: <150 ng/ml CUTOFF Benzoylecgonine Ql (U) Negative NEGATIVE NG/ML [facility] Comment on above: <150 ng/ml CUTOFF Buprenorphine Ql (U) Negative NEGATIVE NG/ML [facility] Comment on above: <10 ng/ml CUTOFF Testing performed at [place] [address] Cannabinoids Screen Ql (U) Positive Abnormal NEGATIVE NG/ML [facility] Comment on above: <50 ng/ml CUTOFF *Unconfirmed Screening Result* Unconfirmed screening results are to be used only for medical treatment purposes. Interpretation and review of laboratory results Abnormal [facility] Methadone Screen Ql (U) Negative NEGATIVE NG/ML [facility] Comment on above: <200 ng/ml CUTOFF Methamphetamine (U) [Mass/Vol] Negative NEGATIVE NG/ML [facility] Comment on above: <500 ng/ml CUTOFF Opiates Screen Ql (U) Negative NEGATIVE NG/ML [facility] Comment on above: <100 ng/ml CUTOFF oxyCODONE Ql (U) Negative NEGATIVE NG/ML [facility] Comment on above: <100 ng/ml CUTOFF Phencyclidine Screen method >25 ng/mL Ql (U) Negative NEGATIVE NG/ML [facility] Comment on above: <25 ng/ml CUTOFF Propoxyphene+Norpropo xyphene Screen Ql (U) Negative NEGATIVE NG/ML [facility] Comment on above: <300 ng/ml CUTOFF Tricyclic antidepressants Screen Ql (U) Negative NEGATIVE NG/ML [facility] Comment on above: <300 ng/ml CUTOFF [facility] REQUEST FOR MISC LAB SENDOUT on 01-14-2021 Miscellaneous Test 1 SPECIMEN SENT TO REFERENCE LAB FOR TESTING [facility] Comment on above: [id number] CANNABINOID Testing performed at [place] [id number] [facility] Chlamydia/GC,DNA Ampon 08-09 Chlamydia Probe Negative Normal NEG [facility] Comment on above: Result Comment: CHLA MYDIA [...] nucleic acid target. Performed By: #### S [facility] #### [address] [address] Religious Healer: Geovani Cordon MD Gonorrhea Probe Negative [facility] Comment on above: Result Comment: NEIS [...] target. Performed By: #### S [facility] #### [address] [address] Religious Healer: Geovani Cordon MD Herpes 1+2 Molecularon 08-09 HSV-1, NAAT Negative [facility] Comment on above: Result Comment: HSV- 1 DNA not detected by nucleic acid amplification Performed By: #### H BS, HSVDNA, TREP, AHCV, HIVCMB #### [address] [id number] Religious Healer: Geovani Cordon MD HSV-2, NAAT Negative [facility] Comment on above: Result Comment: HSV- 2 DNA not detected by nucleic acid amplification Performed By: #### H BS, HSVDNA, TREP, AHCV, HIVCMB #### [address] [address] Religious Healer: Geovani Cordon MD Vaginitis DNA Probeon 2020 [...] symptoms of vaginitis/vaginosis. Report Status FINAL 08/09/2020 [facility] Comment on above: Performed By: #### V AGDNA #### [facility] [address] [place] [address] Religious Healer: Geovani Cordon MD [facility] [address] [place] [address] Religious Healer: Gio Peña MD HIV Ag/Abon 08-08-2020 HIV Ag/Ab Non-Reactive Normal [facility] [place] [facility] Comment on above: Result Comment: No l aboratory evidence of HIV infection. If acute HIV infection is suspected, consider testing for HIV-1 RNA. Performed By: #### H BS, HSVDNA, TREP, AHCV, HIVCMB #### [facility] [place] [address] Religious Healer: Geovani Cordon MD Hep B Surf Agon 08-08-2020 Hep B Surf Ag Non-Reactive Normal [facility] Comment on above: Performed By: #### H BS, HSVDNA, TREP, AHCV, HIVCMB #### [facility] [address] [place] [address] Religious Healer: Geovani Cordon MD Hep C Abon 08-08-2020 Hep C Ab Non-Reactive Normal [facility] [place] [facility] Comment on above: Result Comment: The [...] H BS, HSVDNA, TREP, AHCV, HIVCMB #### [facility] [place] [address] Religious Healer: Geovani Cordon MD Herpes 1+2 Molecularon 08-083 Source: NOT REPORTED [facility] Comment on above: Performed By: #### H BS, HSVDNA, TREP, AHCV, HIVCMB #### [facility] [address] [place] [address] Religious Healer: Geovani Cordon MD T.pallidum Ab Screenon 08-08 T.pallidum Ab Screen Non-Reactive Normal NR [facility] Comment on above: Result Comment: T. pallidum antibodies are not detected. There is no serological evidence of infection with T. pallidum (early primary syphilis cannot be excluded). Retest in 2-4 weeks if syphilis is clinically suspect. Performed By: #### H BS, HSVDNA, TREP, AHCV, HIVCMB #### [facility] [address] [place] [address] Religious Healer: Geovani Cordon MD CBC W/DIFFon 09-29-2019 ABS BASOPHILS 0.1 10*3/uL Normal 0.0-0.2 [facility] Comment on above: Order Comment: No: D o not add to previous draw Performed By: #### 5 0103 #### [facility] [address] ABS IMM GRANS 0.0 10*3/uL Normal 0.0-0.2 [facility] Comment on above: Order Comment: No: D o not add to previous draw Performed By: #### 5 0103 #### [facility] [address] [place] [address], [facility] ABS NEUTROPHILS 2.1 10*3/uL Normal 1.6-7.6 [facility] Comment on above: Order Comment: No: D o not add to previous draw Performed By: #### 5 0103 #### [facility] [address] [place] [address], [facility] Basophils/100 WBC (Bld) 1.2 % High 0.0-1.0 [facility] Comment on above: Order Comment: No: D o not add to previous draw Performed By: #### 5 0103 #### [facility] [address] [place] [address], [facility] Eosinophils (Bld) [#/Vol] 0.3 10*3/uL Normal 0.0-0.5 [facility] Comment on above: Order Comment: No: D o not add to previous draw Performed By: #### 5 0103 #### [facility] [address] [place] [address], [facility] Eosinophils/100 WBC (Bld) 4.5 % Normal 0.0-6.0 [facility] Comment on above: Order Comment: No: D o not add to previous draw Performed By: #### 5 0103 #### [facility] [address] Erythrocyte distribution width (RBC) [Ratio] 14.0 % Normal 11.5-15.0 [facility] Comment on above: Order Comment: No: D o not add to previous draw Performed By: #### 5 0103 #### [facility] [address] [facility] [address] Hematocrit (Bld) [Volume fraction] 39.7 % Normal 36.0-45.0 [facility] Comment on above: Order Comment: No: D o not add to previous draw Performed By: #### 5 0103 #### [facility] [address] [place] [address], [facility] Hemoglobin (Bld) [Mass/Vol] 12.9 g/dL Normal 12.0-15.0 [facility] Comment on above: Order Comment: No: D o not add to previous draw Performed By: #### 5 0103 #### [facility] [address] [place] [address], [facility] IMMATURE GRANS 0.3 % Normal 0.0-1.0 [facility] Comment on above: Order Comment: No: D o not add to previous draw Performed By: #### 5 0103 #### [facility] [address] [place] [address], [facility] Lymphocytes (Bld) [#/Vol] 3.1 10*3/uL Normal 1.2-4.0 [facility] Comment on above: Order Comment: No: D o not add to previous draw Performed By: #### 5 0103 #### [facility] [address] [place] [address], [facility] Lymphocytes/100 WBC (Bld) 51.7 % High 20.0-45.0 [facility] Comment on above: Order Comment: No: D o not add to previous draw Performed By: #### 5 0103 #### [facility] [address] [place] [address], [facility] MCH (RBC) [Entitic mass] 27.7 pg Normal 27.0-33.0 [facility] Comment on above: Order Comment: No: D o not add to previous draw Performed By: #### 5 0103 #### [facility] [address] [facility] [place] [address], [facility] MCHC (RBC) [Mass/Vol] 32.5 g/dL Normal 32.0-35.0 [facility] Comment on above: Order Comment: No: D o not add to previous draw Performed By: #### 5 0103 #### [facility] [address] [facility] [place] [address], [facility] MCV (RBC) [Entitic vol] 85.2 fL Normal 82.0-98.0 [facility] Comment on above: Order Comment: No: D o not add to previous draw Performed By: #### 5 0103 #### [facility] [address] [facility] [place] [address], [facility] Monocytes (Bld) [#/Vol] 0.4 10*3/uL Normal 0.1-1.0 [facility] Comment on above: Order Comment: No: D o not add to previous draw Performed By: #### 5 0103 #### [facility] [address] [place] [address], [facility] MONOS 7.2 % Normal 5.0-12.0 [facility] Comment on above: Order Comment: No: D o not add to previous draw Performed By: #### 5 0103 #### [facility] [address] [place] [address], [facility] Neutrophils/100 WBC (Bld) 35.1 % Low 40.0-72.0 [facility] Comment on above: Order Comment: No: D o not add to previous draw Performed By: #### 5 0103 #### [facility] [address] [place] [id number], [facility] Nucleated RBC/100 WBC (Bld) [Ratio] 0 % Normal 0-0 [facility] Comment on above: Order Comment: No: D o not add to previous draw Performed By: #### 5 0103 #### [facility] [address] [place] [id number], [facility] PLAT CNT 237 10*3/uL Normal 150-400 [facility] Comment on above: Order Comment: No: D o not add to previous draw Performed By: #### 5 0103 #### [facility] [address] [place] [address], [facility] RBC (Bld) [#/Vol] 4.66 10*6/uL Normal 3.80-5.00 [facility] Comment on above: Order Comment: No: D o not add to previous draw Performed By: #### 5 0103 #### [facility] [address] [place] [address], [facility] WBC (Bld) [#/Vol] 5.96 10*3/uL Normal 4.00-10.60 [facility] Comment on above: Order Comment: No: D o not add to previous draw Performed By: #### 5 0103 #### [facility] [address] [place] [address], [place] COMP METABOLIC PANELon 09-28 Albumin [Mass/Vol] 4.5 g/dL Normal 3.5-5.7 [facility] Comment on above: Order Comment: No: D o not add to previous draw Performed By: #### 4 4396, 20118, 17206, 13171, 79047, 78473 #### [facility] [address] [place] [address], [place] ALKALINE PHOSPH 59 IU/L Normal 40-460 [facility] Comment on above: Order Comment: No: D o not add to previous draw Performed By: #### 4 4396, 73484, 49436, 92956, 25215, 94343 #### [facility] [address] [place] [address], [place] ALT [Catalytic activity/Vol] 10 U/L Normal 7-52 [facility] Comment on above: Order Comment: No: D o not add to previous draw Performed By: #### 4 4396, 32517, 98801, 06868, 54618, 86221 #### [facility] [address] [place] [address], [place] AST [Catalytic activity/Vol] 17 U/L Normal 13-39 [facility] Comment on above: Order Comment: No: D o not add to previous draw Performed By: #### 4 4396, 00992, 06781, 26493, 07186, 00418 #### [facility] [address] [place] [address], [place] Bilirubin [Mass/Vol] 0.4 mg/dL Normal 0.3-1.0 [facility] Comment on above: Order Comment: No: D o not add to previous draw Performed By: #### 4 4396, 53446, 84813, 50699, 41624, 02245 #### [facility] [address] [place] [address], [place] Calcium [Mass/Vol] 9.5 mg/dL Normal 8.6-10.3 [facility] Comment on above: Order Comment: No: D o not add to previous draw Performed By: #### 4 4396, 36053, 05437, 55313, 06501, 35123 #### [facility] [address] [place] [address], [place] Chloride [Moles/Vol] 104 mmol/L Normal 98-107 [facility] Comment on above: Order Comment: No: D o not add to previous draw Performed By: #### 4 4396, 79655, 60978, 66417, 25369, 57529 #### [facility] [address] [place] [address], [place] CO2 [Moles/Vol] 28 mmol/L Normal 21-31 [facility] Comment on above: Order Comment: No: D o not add to previous draw Performed By: #### 4 4396, 43842, 85996, 76367, 94476, 61789 #### [facility] [address] [place] [address], [place] Creatinine [Mass/Vol] 0.66 mg/dL Normal 0.60-1.20 [facility] Comment on above: Order Comment: No: D o not add to previous draw Performed By: #### 4 4396, 20358, 64593, 19381, 23905, 44116 #### [facility] [address] [place] [address], [place] GFR/1.73 sq M predicted among blacks MDRD (S/P/Bld) [Vol rate/Area] Calculation not validated for patients under 18 years Abnormal >60 [facility] Comment on above: Order Comment: No: D o not add to previous draw Performed By: #### 4 4396, 75242, 09550, 11162, 64313, 39679 #### [facility] [address] [place] [address], [place] GFR/1.73 sq M predicted among non-blacks MDRD (S/P/Bld) [Vol rate/Area] Calculation not validated for patients under 18 years Abnormal >60 [facility] Comment on above: Order Comment: No: D o not add to previous draw Performed By: #### 4 4396, 93311, 63577, 58561, 58176, 30148 #### [facility] [address] [place] [address], [place] Glucose [Mass/Vol] 139 mg/dL High 70-100 [facility] Comment on above: Order Comment: No: D o not add to previous draw Performed By: #### 4 4396, 35842, 65325, 64036, 08789, 32446 #### [facility] [address] [place] [address], [place] Potassium [Moles/Vol] 3.6 mmol/L Normal 3.5-5.1 [facility] Comment on above: Order Comment: No: D o not add to previous draw Performed By: #### 4 4396, 50963, 78755, 50375, 83104, 86256 #### [facility] [address] [place] [address], [place] Protein [Mass/Vol] 7.2 g/dL Normal 6.0-8.3 [facility] Comment on above: Order Comment: No: D o not add to previous draw Performed By: #### 4 4396, 94620, 79848, 98445, 62315, 06602 #### [facility] [address] [place] [address], [place] Sodium [Moles/Vol] 139 mmol/L Normal 136-145 [facility] Comment on above: Order Comment: No: D o not add to previous draw Performed By: #### 4 4396, 17878, 77208, 77554, 60474, 24669 #### [facility] [address] [place] [address], [place] Urea nitrogen [Mass/Vol] 9 mg/dL Normal 7-25 [facility] Comment on above: Order Comment: No: D o not add to previous draw Performed By: #### 4 4396, 98959, 53832, 68243, 02016, 30320 #### [facility] [address] [place] [address], [facility] FREE T3on 09-29-2019 Free T3 [Mass/Vol] 4.2 pg/mL High 2.5-3.9 [facility] Comment on above: Order Comment: No: D o not add to previous draw Performed By: #### 4 4396, 05555, 16215, 97582, 95632, 02356 #### [facility] [address] [place] [address], [facility] FREE T4on 09-29-2019 Free T4 [Mass/Vol] 0.82 ng/dL Normal 0.71-1.85 [facility] Comment on above: Order Comment: No: D o not add to previous draw Performed By: #### 4 4396, 77675, 82173, 77116, 64278, 10568 #### [facility] [address] [facility] [place] [address], [facility] LIPID PROFILEon 09-29-2019 Cholesterol [Mass/Vol] 153 mg/dL Normal 120-170 [facility] Comment on above: Order Comment: No: D o not add to previous draw Result Comment: CHOL ESTEROL REFERENCE RANGE: 20 YEARS AND OLDER CARDIOVASCULAR RISK Less than 200 mg/dl Low Risk 200 to 239 mg/dl Borderline Risk 240 mg/dl and greater High Risk Performed By: #### 4 4396, 94504, 56799, 15846, 73153, 96642 #### [facility] [address] [place] [address], [facility] Cholesterol in HDL [Mass/Vol] 56 mg/dL Normal 23-92 [facility] Comment on above: Order Comment: No: D o not add to previous draw Result Comment: Slig ht variation in normal range could be due to gender and/or age. HDL CHOLESTEROL REFERENCE RANGE: 20 years and older Cardiovascular Risk > or =60 mg/dL Desirable 40 TO 59 mg/dL Low Risk <40 mg/dL High Risk Performed By: #### 4 4396, 78262, 69810, 79548, 50519, 52721 #### [facility] [address] [place] [address], [facility] Cholesterol in LDL [Mass/Vol] 74 mg/dL Normal 0-130 [facility] Comment on above: Order Comment: No: D o not add to previous draw Result Comment: LDL IS A CALCULATION LDL IS ONLY VALID IF THE TRIG IS LESS THAN 400. Performed By: #### 4 4396, 50403, 73569, 26339, 58975, 36206 #### [facility] [address] [place] [address], [facility] Cholesterol.total/Cho lesterol in HDL [Mass ratio] 2.7 {ratio} Normal 0.0-4.5 [facility] Comment on above: Order Comment: No: D o not add to previous draw Performed By: #### 4 4396, 14873, 30915, 52083, 77830, 71695 #### [facility] [address] [place] [address], [facility] NON-HDL CHOLESTEROL 97 mg/dL Normal [facility] Comment on above: Order Comment: No: D o not add to previous draw Performed By: #### 4 4396, 19315, 57493, 57744, 20045, 38301 #### [facility] [address] [place] [address], [facility] Triglyceride [Mass/Vol] 114 mg/dL Normal 37-148 [facility] Comment on above: Order Comment: No: D o not add to previous draw Result Comment: TRIG LYCERIDE REFERENCE RANGE: 20 YEARS AND OLDER CARDIOVASCULAR RISK LESS THAN 150 mg/dl LOW RISK 150 TO 199 mg/dl BORDERLINE RISK 200 mg/dl AND GREATER HIGH RISK Performed By: #### 4 4396, 45830, 62480, 47138, 55679, 55615 #### [facility] [address] [place] [address], [facility] VLDL CHOL 23 mg/dL Normal 0-40 [facility] Comment on above: Order Comment: No: D o not add to previous draw Performed By: #### [id number] #### [facility] [address] [place] [address], [facility] SERUM TESTon 09-28 TEST Negative Normal [facility] Comment on above: Order Comment: No: D o not add to previous draw Performed By: #### [id number] #### [facility] [address] [place] [address], [facility] TSH3on 09-29-2019 TSH 3RD GENERATION 1.24 uIU/mL Normal 0.34-5.60 [facility] Comment on above: Order Comment: No: D o not add to previous draw Performed By: #### [id number] #### [facility] [address] [place] [address], [facility] VITAMIN D 25-HYDROXYon 09-28 VITAMIN D 25-OH 42.5 ng/mL Normal 30.0-80.0 [facility] Comment on above: Result Comment: >80. 0 Toxicity possible Performed By: #### [id number] #### [facility] [address] [facility] [place] [address], [facility] Urine Drug Screenon 09-28-19 20 Amphetamine [...] cutoff 200 ng/mL) Methamphetamine, Urine Negative NEGATIVE [place] Comment on above: (Positive cutoff 500 ng/mL) Opiates, Urine Negative NEGATIVE [place] Comment on above: (Positive cutoff 100 ng/mL) Oxycodone Screen, Ur Negative NEGATIVE [place] Comment on above: (Positive cutoff 100 ng/mL) Phencyclidine, Urine Negative NEGATIVE [place] Comment on above: (Positive cutoff 25 ng/mL) Propoxyphene, Urine Negative NEGATIVE [place] Comment on above: (Positive cutoff 300 ng/mL) Test Information NOT REPORTED [place] Tricyclic Antidepressants, Urine Negative NEGATIVE [place] Comment on above: (Positive cutoff 300 ng/mL) Drug screen results are to be used for medical purposes only. All positive results are unconfirmed. Testing for employment or legal uses should be sent to a reference laboratory for confirmation. Acetaminophen Levelon 2019 Acetaminophen [Mass/Vol] <5 Low 10 - 30 ug/mL [place] Interpretation and review of laboratory results Abnormal [place] Basic Metabolic Panelon 09-06 Anion gap [Moles/Vol] 15 mmol/L 9 - 17 mmol/L [place] Bun/Cre Ratio 13 [place], [place] Calcium [Mass/Vol] 10.5 mg/dL High 8.4 - 10. 2 mg/dL [place] Chloride [Moles/Vol] 98 mmol/L 98 - 10 7 mmol/L [place] CO2 [Moles/Vol] 23 mmol/L 20 - 31 mmol/L [place] Creatinine [Mass/Vol] 0.61 mg/dL 0.5 - 0.9 mg/dL [place] GFR NOT REPORTED >60 mL/min [place] GFR Non- Pediatric GFR requires additional information. Refer to NKDEP website for calculator. >60 mL/min [place] GFR/1.73 sq M predicted among non-blacks MDRD (S/P/Bld) [Vol rate/Area] NOT REPORTED [place] GFR/1.73 sq M predicted among non-blacks MDRD (S/P/Bld) [Vol rate/Area] [place] Comment on above: Average GFR for <20 years old not available. Chronic Kidney Disease: <60 mL/min/1.73sq m Kidney failure: <15 mL/min/1.73sq m eGFR calculated using average adult body mass. Additional eGFR calculator available at: http://www.[employer]/multiple_crcl_2012.htm Glucose [Mass/Vol] 106 mg/dL High 60 - 100 mg/dL [place] Potassium [Moles/Vol] 3.9 mmol/L 3.6 - 4.9 mmol/L [place] Sodium [Moles/Vol] 136 mmol/L 135 - 144 mmol/L [place] Urea nitrogen [Mass/Vol] 8 mg/dL 5 - 18 mg/dL [place] CBC Auto Differentialon 09-06 Basophils (Bld) [#/Vol] 0.00 10*3/uL [place] Basophils/100 WBC (Bld) 0 % 0 - 2 % [place] Differential Type YES [place] Eosinophils (Bld) [#/Vol] 0.10 10*3/uL [place] Eosinophils/100 WBC (Bld) 1 % 0 - 5 % [place] Erythrocyte distribution width (RBC) [Ratio] 14.8 % 12.1 - 15.2 % [place] Hematocrit (Bld) [Volume fraction] 40.2 % 36 - 46 % [place] Hemoglobin (Bld) [Mass/Vol] 13.8 g/dL 12 - 16 g/dL [place] Lymphocytes (Bld) [#/Vol] 1.90 10*3/uL [place] Lymphocytes/100 WBC (Bld) 21 % 14 - 41 % [place] MCH (RBC) [Entitic mass] 28.4 pg 25 - 35 pg [place] MCHC (RBC) [Mass/Vol] 34.2 g/dL 31 - 37 g/dL M [place] MCV (RBC) [Entitic vol] 83.1 fL 78 - 102 fL [place] Monocytes (Bld) [#/Vol] 0.70 10*3/uL [place] Monocytes/100 WBC (Bld) 7 % 4 - 8 % [place] Platelet mean volume (Bld) [Entitic vol] NOT REPORTED 6 - 12 fL [place] Platelets (Bld) [#/Vol] 238 10*3/uL [place] Platelets (Bld) [#/Vol] NOT REPORTED [place] RBC (Bld) [#/Vol] 4.84 10*6/uL 4 - 5.2 m/uL [place] RBC morphology finding Nom (Bld) NOT REPORTED [place] Segmented neutrophils/100 WBC (Bld) 71 % 45 - 76 % [place] Segs Absolute 6.50 [place] WBC (Bld) [#/Vol] 9.2 10*3/uL [place] WBC (Bld) [#/Vol] NOT REPORTED per 100 WBC [place] WBC Morphology NOT REPORTED [place] Ethanolon 09-27-2019 Ethanol [Mass/Vol] mg/dL <10 mg/dL [place], [place] Ethanol percent <0.010 % [place] HCG Qualitative, Serumon hCG Qual Negative NEGATIVE [place] Comment on above: Specimens with hCG l evels near the threshold of the test (25 mIU/mL) may give a negative or indeterminate result. In such cases, another test should be performed with a new specimen in 48-72 hours. If early is suspected clinically in this setting, correlation with quantitative serum b-hCG level is suggested. [facility] the use of plasma for this test. This has not been cleared or approved by the U.S. Food and Drug Administration. The FDA has determined that such clearance is not necessary. Otheron 09-27-2019 Interpretation and review of laboratory results Abnormal [place] Immature granulocytes (Bld) [#/Vol] NOT REPORTED 0 % [place] Salicylateon 09-27-2019 Salicylate Lvl <1 Low 3 - 10 mg/dL [facility] [place] TSH without Reflexon 020 TSH Qn 0.49 m[IU]/L [facility] [place] XR HAND RIGHT (MIN 3 VIEWS)o n 09-27-2019 EXAM: XR HAND RIGHT (MIN 3 VIEWS) HISTORY: Reason for exam:->pain to lateral MCs, punched wall COMPARISON: Right hand, 07/20/2014. TECHNIQUE: AP, oblique and lateral views of the right hand. FINDINGS: No acute or intrinsic osseous, articular or soft tissue abnormality is seen. [place] No acute findings. [place] Jeovany, Mhpn Incoming Radiant Results From [employer] - 09/27/2019 11:39 PM EDT EXAM: XR HAND RIGHT (MIN 3 VIEWS) HISTORY: Reason for exam:->pain to lateral MCs, punched wall COMPARISON: Right hand, 07/20/2014. TECHNIQUE: AP, oblique and lateral views of the right hand. FINDINGS: No acute or intrinsic osseous, articular or soft tissue abnormality is seen. IMPRESSION: No acute findings. [place] CBC Auto Differentialon 11-0 Basophils (Bld) [#/Vol] 0.00 10*3/uL [place] Basophils/100 WBC (Bld) 1 % 0 - 2 % [place] Differential Type YES Toya Powell [place] Eosinophils (Bld) [#/Vol] 0.00 10*3/uL [place] Eosinophils/100 WBC (Bld) 1 % 0 - 5 % [place] Erythrocyte distribution width (RBC) [Ratio] 14.3 % 12.1 - 15.2 % [place] Hematocrit (Bld) [Volume fraction] 40.7 % 36 - 46 % [place] Hemoglobin (Bld) [Mass/Vol] 13.4 g/dL 12 - 16 g/dL [place] Interpretation and review of laboratory results Abnormal [place] Lymphocytes (Bld) [#/Vol] 1.20 10*3/uL [place] Lymphocytes/100 WBC (Bld) 33 % 14 - 41 % [place] MCH (RBC) [Entitic mass] 27.3 pg 25 - 35 pg [place] MCHC (RBC) [Mass/Vol] 33.0 g/dL 31 - 37 g/dL M [place] MCV (RBC) [Entitic vol] 82.8 fL 78 - 102 fL [place] Monocytes (Bld) [#/Vol] 0.40 10*3/uL [place] Monocytes/100 WBC (Bld) 12 % High 4 - 8 % [place] Platelet mean volume (Bld) [Entitic vol] NOT REPORTED 6 - 12 fL [place] Platelets (Bld) [#/Vol] 235 10*3/uL [place] Platelets (Bld) [#/Vol] NOT REPORTED [place] RBC (Bld) [#/Vol] 4.92 10*6/uL 4 - 5.2 m/uL [place] RBC morphology finding Nom (Bld) NOT REPORTED [place] Segmented neutrophils/100 WBC (Bld) 53 % 45 - 76 % [place] Segs Absolute 2.10 Low [place] WBC (Bld) [#/Vol] 3.8 10*3/uL [place] WBC (Bld) [#/Vol] NOT REPORTED per 100 WBC [place] WBC Morphology NOT REPORTED [place] Comprehensive Metabolic Pane bonita 01-12-2019 Albumin [Mass/Vol] 4.8 g/dL High 3.2 - 4.5 g/dL [place] Albumin/Globulin [Mass ratio] NOT REPORTED [place] ALP [Catalytic activity/Vol] 88 U/L 47 - 119 U/L [place] ALT [Catalytic activity/Vol] 12 U/L 5 - 33 U/L [place] Anion gap [Moles/Vol] 17 mmol/L 9 - 17 mmol/L [place] AST [Catalytic activity/Vol] 24 U/L <32 [place] Bilirubin Ql (U) 0.46 mg/dL 0.3 - 1.2 mg/dL [place] Bun/Cre Ratio 14 [place] Calcium [Mass/Vol] 10.4 mg/dL High 8.4 - 10. 2 mg/dL [place] Chloride [Moles/Vol] 101 mmol/L 98 - 10 7 mmol/L [place] CO2 [Moles/Vol] 22 mmol/L 20 - 31 mmol/L [place] Creatinine [Mass/Vol] 0.65 mg/dL 0.5 - 0.9 mg/dL [place] GFR NOT REPORTED >60 mL/min [place] GFR Non- Pediatric GFR requires additional information. Refer to NKDEP website for calculator. >60 mL/min [place] GFR/1.73 sq M predicted among non-blacks MDRD (S/P/Bld) [Vol rate/Area] NOT REPORTED [place] GFR/1.73 sq M predicted among non-blacks MDRD (S/P/Bld) [Vol rate/Area] [place] Comment on above: Average GFR for <20 years old not available. Chronic Kidney Disease: <60 mL/min/1.73sq m Kidney failure: <15 mL/min/1.73sq m eGFR calculated using average adult body mass. Additional eGFR calculator available at: http://www.[employer]/multiple_crcl_2012.htm Glucose [Mass/Vol] 90 mg/dL 60 - 100 mg/dL [place] Interpretation and review of laboratory results Abnormal [place] Potassium [Moles/Vol] 3.9 mmol/L 3.6 - 4.9 mmol/L [place] Protein [Mass/Vol] 8.7 g/dL High 6 - 8 g/dL [place] Sodium [Moles/Vol] 140 mmol/L 135 - 144 mmol/L [place] Urea nitrogen [Mass/Vol] 9 mg/dL 5 - 18 mg/dL [place] HCG Qualitative, Serumon hCG Qual Negative NEGATIVE [place] Comment on above: Specimens with hCG l evels near the threshold of the test (25 mIU/mL) may give a negative or indeterminate result. In such cases, another test should be performed with a new specimen in 48-72 hours. If early is suspected clinically in this setting, correlation with quantitative serum b-hCG level is suggested. [facility] has confirmed the use of plasma for this test. This has not been cleared or approved by the U.S. Food and Drug Administration. The FDA has determined that such clearance is not necessary. Otheron 01-12-2019 Immature granulocytes (Bld) [#/Vol] NOT REPORTED [place] HCG QUALITATIVE, URINEon HCG ( test) Ql (U) Negative [facility] Otheron 12-18-2018 Interpretation and review of laboratory results Abnormal [facility] URINALYSIS, MACROon 12-19-19 19 Bilirubin Ql (U) Negative NEGATIVE [facility] Clarity (U) CLEAR CLEAR [facility] Color (U) YELLOW YELLOW [facility] Glucose Test strip (U) [Mass/Vol] Negative NEGATIVE mg/dl [facility] Hemoglobin Ql (U) Negative NEGATIVE [facility] Ketones (U) [Mass/Vol] Negative NEGATIVE mg/dl [facility] Leukocyte esterase Test strip Ql (U) Negative NEGATIVE [facility] Nitrite Ql (U) Negative NEGATIVE [facility] pH (U) 7.0 [pH] [facility] Protein Ql (U) TRACE Abnormal NEGATIVE mg/dl [facility] Specific gravity (U) [Rel density] 1.025 [facility] Urobilinogen (U) [Mass/Vol] 0.2 [facility] URINE HCG QUALon 12-18-2018 Beta HCG ( test) Ql (U) Negative Normal [facility] URINE MACROSCOPICon 12-19-19 19 Bilirubin Ql (U) Negative Normal NEGATIVE [facility] Clarity (U) CLEAR Normal CLEAR [facility] Color (U) YELLOW Normal YELLOW [facility] Glucose Ql (U) Negative Normal NEGATIVE [facility] pH (U) 7.0 [pH] Normal 5.0-7.0 [facility] Protein (U) [Mass/Vol] TRACE Abnormal NEGATIVE [facility] URINE HEMOGLOBIN Negative Normal NEGATIVE [facility] URINE KETONE Negative Normal NEGATIVE [facility] URINE LEUKOTEST Negative Normal NEGATIVE [facility] URINE NITRATES Negative Normal NEGATIVE [facility] URINE SPEC GRAVITY 1.025 Normal 1.010-1.025 [facility] Urobilinogen Qn (U) 0.2 {Manuel'U}/dL Normal 0.2-1.0 [facility] URINE MICROSCOPICon 12-19-19 19 Bacteria LM.HPF (Urine sed) [#/Area] TRACE Abnormal NEGATIVE [facility] Casts LM.LPF (Urine sed) [#/Area] NONE Normal NONE [facility] CRYSTAL NONE Normal NONE [facility] Epithelial cells LM.HPF (Urine sed) [#/Area] 10 TO 20 Normal [facility] Mucus Ql (Urine sed) Negative Normal NEGATIVE [facility] RBC (U) [#/Vol] Negative Normal NEGATIVE [facility] URINE COMMENT CULTURE CRITERIA NOT MET, NO CULTURE PERFORMED. Normal [facility] WBC (U) [#/Vol] 1 TO 5 Normal NEGATIVE [facility] Bacteria LM.HPF (Urine sed) [#/Area] TRACE Abnormal NEGATIVE [facility] Casts LM.LPF (Urine sed) [#/Area] NONE NONE /LPF [facility] Crystals LM Nom (Urine sed) NONE NONE [facility] Epithelial cells LM Ql (Urine sed) 10 TO 20 /HPF [facility] Mucus Ql (Urine sed) Negative NEGATIVE [facility] RBC LM.HPF (Urine sed) [#/Area] Negative NEGATIVE /HPF [facility] Urine sediment comments LM Vinnie (Urine sed) CULTURE CRITERIA NOT MET, NO CULTURE PERFORMED. [facility] WBC LM.HPF (Urine sed) [#/Area] 1 TO 5 NEGATIVE /HPF [facility] Strep Screen Group A Throato n 12-16-2018 S. pyogenes Ag IA Ql (Unsp spec) Rapid Strep A negative. A negative Rapid Group A Strep Screen result does not rule out the possibility of Group A Streptococci in the specimen. The [place] [employer] recommends confirmation testing. Therefore, a Group A Strep DNA test will be performed. [place] Special Requests NOT REPORTED [place] Specimen Description .THROAT [place] XR CHEST STANDARD (2 VW)on Negative chest. Toya Williamson [place] EXAM: XR CHEST (2 VW) HISTORY: Reason for exam:->cough COMPARISON: None. TECHNIQUE: 2 views chest FINDINGS: Heart size normal. Lungs clear. Bony thorax and upper abdomen normal. [place], [place]hpn Incoming Radiant Results From [employer] - 12/16/2018 5:28 PM EDT EXAM: XR CHEST (2 VW) HISTORY: Reason for exam:->cough COMPARISON: None. TECHNIQUE: 2 views chest FINDINGS: Heart size normal. Lungs clear. Bony thorax and upper abdomen normal. IMPRESSION: Negative chest. [place] Vital Signs Date Time Vital Sign Value Performing Clinician Shadi ag 03-06-2024 [id number] Body weight 72.18 kg Jewell MATTHEWS Work Phone: [facility] 03-06-2024 10:11-0500 Diastolic blood pressure 64 mm[Hg] Jewell MATTHEWS Work Phone: [facility] 03-06-2024 10:11-0500 Systolic blood pressure 110 mm[Hg] Jewell MATTHEWS Work Phone: [facility] 02-21-2024 10:13-0500 Body height 160 cm Doyle Amaro MD Work Phone: [facility] 02-21-2024 10:13-0500 Body mass index (BMI) [Ratio] 28.52 kg/m2 Doyle Amaro MD Work Phone: [facility] 02-21-2024 10:13050 Body weight 73.03 kg Doyle Amaro MD Work Phone: [facility] 02-21-2024 10:130500 Diastolic blood pressure 70 mm[Hg] Doyle Amaro MD Work Phone: [facility] 02-21-2024 10:13-0500 Systolic blood pressure 105 mm[Hg] Doyle Amaro MD Work Phone: [facility] 02-07-2024 11:12-0500 Body mass index (BMI) [Ratio] 28.63 kg/m2 Malka Allison [employer] Work Phone: [facility] 02-07-2024 11:12-0500 Body weight 73.3 kg Malka Allison [employer]ATEGY ANALYST-[employer] Work Phone: [facility] 02-07-2024 11:12-0500 Diastolic blood pressure 60 mm[Hg] Malka Allison [employer]ATEGY ANALYST-[employer]IVER Work Phone: [facility] 02-07-2024 11:12-0500 Systolic blood pressure 108 mm[Hg] Malka Allison [employer]ATEGY ANALYST[employer]IVER Work Phone: [facility] 01-10-2024 09:44-0500 Body mass index (BMI) [Ratio] 27.56 kg/m2 Nahed Stewart MD Work Phone: [facility] [employer] [facility] 01-10-2024 09:44-0500 Body weight 70.58 kg Nahed Stewart MD Work Phone: [facility] 01-10-2024 09:44-0500 Diastolic blood pressure 60 mm[Hg] Nahed Stewart MD Work Phone: [facility] [employer] [facility] 01-10-2024 09:44-0500 Systolic blood pressure 100 mm[Hg] Nahed Stewart MD Work Phone: [facility] 12-13-2023 09:17-0400 Body mass index (BMI) [Ratio] 26.04 kg/m2 Nahed Stewart MD Work Phone: [facility] 12-13-2023 09:17-0400 Body weight 66.68 kg Nahed Stewart MD Work Phone: [facility] 12-13-2023 09:17-0400 Diastolic blood pressure 60 mm[Hg] Nahed Stewart MD Work Phone: [phone] [place] [address] 12-13-2023 09:17-0400 Systolic blood pressure 100 mm[Hg] Nahed Stewart MD Work Phone: [facility] 11-11-2023 13:33-0400 Body mass index (BMI) [Ratio] 24.98 kg/m2 Nahed Stewart MD Work Phone: [facility] 11-11-2023 13:33-0400 Body weight 63.96 kg Nahed Stewart MD Work Phone: [facility] 11-11-2023 13:33-0400 Diastolic blood pressure 56 mm[Hg] Nahed Stewart MD Work Phone: [facility] 11-11-2023 13:33-0400 Systolic blood pressure 112 mm[Hg] Nahed Stewart MD Work Phone: [facility] 10-14-2023 13:27-0400 Body height 160 cm Doyle Amaro MD Work Phone: [facility] 10-14-2023 13:27-0400 Body mass index (BMI) [Ratio] 24.62 kg/m2 Doyle Amaro MD Work Phone: [facility] 10-14-2023 13:27-0400 Body weight 63.05 kg Doyle Amaro MD Work Phone: [facility] 10-14-2023 13:27-0400 Diastolic blood pressure 62 mm[Hg] Doyle Amaro MD Work Phone: [facility] 10-14-2023 13:27-0400 Systolic blood pressure 120 mm[Hg] Doyle Amaro MD Work Phone: [facility] 09-26-2023 19:52-0400 Diastolic blood pressure 86 mm[Hg] Justin Hewitt [facility] 09-26-2023 19:52-0400 Heart rate 96 /min Justin Hewitt [facility] 09-26-2023 19:52-0400 Mean blood pressure 97 mm[Hg] Justin Kash [facility] 09-26-2023 19:52-0400 Respiratory rate 23 /min Justin Kash [facility] 09-26-2023 19:52-0400 SaO2% (BldA) [Mass fraction] 99 % Justin Kash [facility] 09-26-2023 19:52-0400 Systolic blood pressure 120 mm[Hg] Justin Kash [facility] 09-26-2023 18:46-0400 Diastolic blood pressure 81 mm[Hg] Justin Kash [facility] 09-26-2023 18:46-0400 Heart rate 89 /min Justin Kash [facility] 09-26-2023 18:46-0400 Mean blood pressure 96 mm[Hg] Justin Kash [facility] 09-26-2023 18:46-0400 Respiratory rate 18 /min Justin Kash [facility] 09-26-2023 18:46-0400 SaO2% (BldA) [Mass fraction] 98 % Justin Kash [facility] 09-26-2023 18:46-0400 Systolic blood pressure 126 mm[Hg] Justin Kash [facility] 09-26-2023 18:00-0400 Heart rate 97 /min Justin Kash [facility] 09-26-2023 18:00-0400 Mean blood pressure 94 mm[Hg] Justin Kash [facility] 09-26-2023 18:00-0400 SaO2% (BldA) [Mass fraction] 100 % Justin Kash [facility] 09-26-2023 18:00-0400 Systolic blood pressure 121 mm[Hg] Justni Kash [facility] 09-26-2023 16:57-0400 Body temperature 98.96 [degF] Justin Hewitt [facility] 09-26-2023 16:57-0400 Heart rate 94 /min Justin Kash [facility] 09-26-2023 16:57-0400 Respiratory rate 18 /min Justin Hewitt [facility] 09-26-2023 16:42-0400 Body temperature 98.6 [degF] Justin Hewitt [facility] 09-26-2023 16:42-0400 Heart rate 106 /min Justin Hewitt [facility] 09-26-2023 16:42-0400 Respiratory rate 18 /min Justin Hewitt [facility] 09-24-2023 13:28-0400 Body height 160 cm Avg Gurjit Gal [id number] [facility] 09-24-2023 13:28-0400 Body mass index (BMI) [Ratio] 23.91 kg/m2 Avg Gurjit Gal [id number] [facility] 09-24-2023 13:28-0400 Body weight 61.24 kg Avg Gurjit Gal [id number] [facility] 09-24-2023 13:28-0400 Diastolic blood pressure 68 mm[Hg] Avg Gurjit Gal [id number] [facility] 09-24-2023 13:28-0400 Systolic blood pressure 112 mm[Hg] Avg Gurjit Gal [id number] [facility] 09-16-2023 08:37-0400 Body temperature 98.24 [degF] [facility] 09-16-2023 08:37-0400 Diastolic blood pressure 78 mm[Hg] [facility] 09-16-2023 08:37-0400 Heart rate 76 /min [facility] 09-16-2023 08:37-0400 Respiratory rate 18 /min [facility] 09-16-2023 08:37-0400 SaO2% (BldA) [Mass fraction] 100 % [facility] 09-16-2023 08:37-0400 Systolic blood pressure 126 mm[Hg] [facility] 09-13-2023 10:56-0400 Blood Pressure Location Pari Underwood [facility] 09-13-2023 10:56-0400 Body temperature 97.88 [degF] Pari Underwood [facility] 09-13-2023 10:56-0400 Diastolic blood pressure 68 mm[Hg] Pari Underwood [facility] 09-13-2023 10:56-0400 Heart rate 74 /min Pari Underwood [facility] 09-13-2023 10:56-0400 Respiratory rate 18 /min Pari Underwood [facility] 09-13-2023 10:56-0400 SaO2% (BldA) [Mass fraction] 98 % Pari Underwood [facility] 09-13-2023 10:56-0400 Systolic blood pressure 110 mm[Hg] Pari Underwood [facility] 08-13-2023 14:20-0400 Blood Pressure Location Pari Underwood [facility] 08-13-2023 14:20-0400 Body temperature 97.88 [degF] Pari Bazzizier [facility] 08-13-2023 14:20-0400 Diastolic blood pressure 80 mm[Hg] Pari Bazzizier [facility] 08-13-2023 14:20-0400 Heart rate 88 /min Pari Bazzizier [facility] 08-13-2023 14:20-0400 Respiratory rate 16 /min Pari Bazzizier [facility] 08-13-2023 14:20-0400 SaO2% (BldA) [Mass fraction] 99 % Pari Bazzizier [facility] 08-13-2023 14:20-0400 Systolic blood pressure 122 mm[Hg] Paridominick BazziUnderwood [facility] 08-04-2023 14:57-0400 Body mass index (BMI) [Ratio] 22.96 kg/m2 Nahed Stewart MD Work Phone: [facility] 08-04-2023 14:57-0400 Body weight 58.79 kg Nahed Stewart MD Work Phone: [facility] 08-04-2023 14:57-0400 Diastolic blood pressure 62 mm[Hg] Nahed Stewart MD Work Phone: [facility] 08-04-2023 14:57-0400 Systolic blood pressure 120 mm[Hg] Nahed Stewart MD Work Phone: [facility] 04-16-2023 14:16-0500 Body mass index (BMI) [Ratio] 20.87 kg/m2 Nahed Stewart MD Work Phone: [facility] 04-16-2023 14:16-0500 Body weight 53.43 kg Nahed Stewart MD Work Phone: [phone] [place] [address] 04-16-2023 14:16-0500 Diastolic blood pressure 76 mm[Hg] Nahed Stewart MD Work Phone: [facility] 04-16-2023 14:16-0500 Systolic blood pressure 118 mm[Hg] Nahed Stewart MD Work Phone: [facility] 10-23-2022 09:25-0400 Body height 160 cm Nahed Stewart MD Work Phone: [facility] 10-23-2022 09:25-0400 Body mass index (BMI) [Ratio] 21.33 kg/m2 Nahed Stewart MD Work Phone: [phone] [place] [address] 10-23-2022 09:25-0400 Body weight 54.61 kg Nahed Stewart MD Work Phone: [phone] [place] [address] 10-23-2022 09:25-0400 Diastolic blood pressure 68 mm[Hg] Nahed Stewart MD Work Phone: [phone] [place] [address] 10-23-2022 09:25-0400 Systolic blood pressure 100 mm[Hg] Nahed Stewart MD Work Phone: [facility] 09-01-2022 13:16-0400 Body mass index (BMI) [Ratio] 21.36 kg/m2 Nahed Stewart MD Work Phone: [facility] 09-01-2022 13:16-0400 Body weight 54.7 kg Nahed Stewart MD Work Phone: [facility] 09-01-2022 13:16-0400 Diastolic blood pressure 66 mm[Hg] Nahed Stewart MD Work Phone: [facility] 09-01-2022 13:16-0400 Systolic blood pressure 120 mm[Hg] Nahed Stewart MD Work Phone: [facility] 06-08-2022 13:20-0400 Body temperature 98.71 [degF] [facility] 06-08-2022 13:20-0400 Diastolic blood pressure 70 mm[Hg] [facility] 06-08-2022 13:20-0400 Heart rate 82 /min [facility] [employer] 06-08-2022 13:20-0400 Respiratory rate 18 /min [facility] 06-08-2022 13:20-0400 SaO2% (BldA) [Mass fraction] 97 % [facility] 06-08-2022 13:20-0400 Systolic blood pressure 117 mm[Hg] [facility] 04-22-2022 09:40-0500 Body mass index (BMI) [Ratio] 21.01 kg/m2 Nahed Stewart MD Work Phone: [facility] 04-22-2022 09:40-0500 Body weight 53.8 kg Nahed Stewart MD Work Phone: [facility] 04-22-2022 09:40-0500 Diastolic blood pressure 62 mm[Hg] Nahed Stewart MD Work Phone: [phone] [place] [address] 04-22-2022 09:40-0500 Systolic blood pressure 110 mm[Hg] Nahed Stewart MD Work Phone: [facility] 03-20-2022 14:35-0500 Body mass index (BMI) [Ratio] 22.21 kg/m2 Nahed Stewart MD Work Phone: [facility] 03-20-2022 14:35-0500 Body weight 56.88 kg Nahed Stewart MD Work Phone: [facility] 03-20-2022 14:35-0500 Diastolic blood pressure 70 mm[Hg] Nahed Stewart MD Work Phone: [facility] 03-20-2022 14:35-0500 Systolic blood pressure 118 mm[Hg] Nahed Stewart MD Work Phone: [facility] 10-24-2021 14:45-0400 Body height 160 cm Nahed Stewart MD Work Phone: [facility] 10-24-2021 14:45-0400 Body mass index (BMI) [Ratio] 23.03 kg/m2 Nahed Stewart MD Work Phone: [facility] 10-24-2021 14:45-0400 Body weight 58.97 kg Nahed Stewart MD Work Phone: [facility] 10-24-2021 14:45-0400 Diastolic blood pressure 62 mm[Hg] Nahed Stewart MD Work Phone: [facility] 10-24-2021 14:45-0400 Systolic blood pressure 120 mm[Hg] Nahed Stewart MD Work Phone: [facility] 08-05-2021 09:20-0400 Body mass index (BMI) [Ratio] 28.09 kg/m2 Nahed Stewart MD Work Phone: [facility] 08-05-2021 09:20-0400 Body weight 71.94 kg Nahed Stewart MD Work Phone: [facility] 08-05-2021 09:20-0400 Diastolic blood pressure 56 mm[Hg] Nahed Stewart MD Work Phone: [facility] 08-05-2021 09:20-0400 Systolic blood pressure 98 mm[Hg] Nahed Stewart MD Work Phone: [facility] 07-28-2021 09:03-0400 Body height 160 cm Doyle Amaro MD Work Phone: [facility] 07-28-2021 09:03-0400 Body mass index (BMI) [Ratio] 27.46 kg/m2 Doyle Amaro MD Work Phone: [facility] 07-28-2021 09:03-0400 Body weight 70.31 kg Doyle Amaro MD Work Phone: [facility] 07-28-2021 09:03-0400 Diastolic blood pressure 64 mm[Hg] Doyle Amaro MD Work Phone: [facility] 07-28-2021 09:03-0400 Systolic blood pressure 140 mm[Hg] Doyle Amaro MD Work Phone: [facility] 07-14-2021 09:00-0400 Body height 160 cm Malka CURTIS Work Phone: [facility] 07-14-2021 09:00-0400 Body mass index (BMI) [Ratio] 26.75 kg/m2 Malka Allison STRATEGY ANALYST-BACKHAUL DRIVER Work Phone: [facility] 07-14-2021 09:00-0400 Body weight 68.49 kg Malka Allison STRATEGY ANALYST-BACKHAUL DRIVER Work Phone: [facility] 07-14-2021 09:00-0400 Diastolic blood pressure 62 mm[Hg] Malka Allison STRATEGY ANALYST-BACKHAUL DRIVER Work Phone: [facility] 07-14-2021 09:00-0400 Systolic blood pressure 106 mm[Hg] Malka Allison STRATEGY ANALYST-BACKHAUL DRIVER Work Phone: [facility] 06-30-2021 09:33-0400 Body height 160 cm Doyle Amaro MD Work Phone: [facility] 06-30-2021 09:33-0400 Body mass index (BMI) [Ratio] 26.04 kg/m2 Doyle Amaro MD Work Phone: [facility] 06-30-2021 09:33-0400 Body weight 66.68 kg Doyle Amaro MD Work Phone: [facility] 06-30-2021 09:33-0400 Diastolic blood pressure 64 mm[Hg] Doyle Amaro MD Work Phone: [facility] 06-30-2021 09:33-0400 Systolic blood pressure 102 mm[Hg] Doyle Amaro MD Work Phone: [facility] 06-16-2021 09:08-0400 Body height 160 cm Malka Betancuram STRATEGY ANALYST-BACKHAUL DRIVER Work Phone: [facility] 06-16-2021 09:08-0400 Body mass index (BMI) [Percentile] Per age and sex 84.17 % Malka Allison STRATEGY ANALYST-BACKHAUL DRIVER Work Phone: [facility] 06-16-2021 09:08-0400 Body mass index (BMI) [Ratio] 25.86 kg/m2 Malka Allison STRATEGY ANALYST-BACKHAUL DRIVER Work Phone: [facility] 06-16-2021 09:08-0400 Body weight 66.22 kg Malka Allison STRATEGY ANALYST-BACKHAUL DRIVER Work Phone: [facility] 06-16-2021 09:08-0400 Diastolic blood pressure 64 mm[Hg] Malka Allison STRATEGY ANALYST-BACKHAUL DRIVER Work Phone: [facility] 06-16-2021 09:08-0400 Systolic blood pressure 106 mm[Hg] Malka Allison STRATEGY ANALYST-BACKHAUL DRIVER Work Phone: [employer] [facility] 06-02-2021 09:07-0400 Body mass index (BMI) [Percentile] Per age and sex 79.15 % Nahed Stewart MD Work Phone: [facility] [facility] 06-02-2021 09:07-0400 Body mass index (BMI) [Ratio] 24.8 kg/m2 Nahed Stewart MD Work Phone: [facility] [facility] 06-02-2021 09:07-0400 Body weight 63.5 kg Nahed Stewart MD Work Phone: [facility] 06-02-2021 09:07-0400 Diastolic blood pressure 56 mm[Hg] Nahed Stewart MD Work Phone: [facility] 06-02-2021 09:07-0400 Systolic blood pressure 100 mm[Hg] Nahed Stewart MD Work Phone: [facility] 05-13-2021 10:08-0500 Body height 160 cm Malka Allison STRATEGY ANALYST-BACKHAUL DRIVER Work Phone: [facility] 05-13-2021 10:08-0500 Body mass index (BMI) [Percentile] Per age and sex 72.35 % Malka Allison STRATEGY ANALYST-BACKHAUL DRIVER Work Phone: [facility] 05-13-2021 10:08-0500 Body mass index (BMI) [Ratio] 23.74 kg/m2 Malka Allison STRATEGY ANALYST-BACKHAUL DRIVER Work Phone: [facility] [employer] [facility] 05-13-2021 10:08-0500 Body weight 60.78 kg Malka Allison STRATEGY ANALYST-BACKHAUL DRIVER Work Phone: [facility] 05-13-2021 10:08-0500 Diastolic blood pressure 62 mm[Hg] Malka Allison STRATEGY ANALYST-BACKHAUL DRIVER Work Phone: [facility] 05-13-2021 10:08-0500 Systolic blood pressure 104 mm[Hg] Malka Allison STRATEGY ANALYST-BACKHAUL DRIVER Work Phone: [facility] [employer] [facility] 04-22-2021 14:24-0500 Body mass index (BMI) [Percentile] Per age and sex 72.49 % Nahed Stewart MD Work Phone: [facility] [employer] [facility] 04-22-2021 14:24-0500 Body mass index (BMI) [Ratio] 23.74 kg/m2 Nahed Stewart MD Work Phone: [facility] [facility] 04-22-2021 14:24-0500 Body weight 60.78 kg Nahed Stewart MD Work Phone: [facility] 04-22-2021 14:24-0500 Diastolic blood pressure 70 mm[Hg] Nahed Stewart MD Work Phone: [facility] 04-22-2021 14:24-0500 Systolic blood pressure 112 mm[Hg] Nahed Stewart MD Work Phone: [facility] 03-13-2021 10:20-0500 Body height 160 cm Doyle Amaro MD Work Phone: [facility] 03-13-2021 10:20-0500 Body mass index (BMI) [Percentile] Per age and sex 59.91 % Doyle Amaro MD Work Phone: [facility] 03-13-2021 10:20-0500 Body mass index (BMI) [Ratio] 22.32 kg/m2 Doyle Amaro MD Work Phone: [facility] 03-13-2021 10:20-0500 Body weight 57.15 kg Doyle Amaro MD Work Phone: [facility] [employer] [facility] 03-13-2021 10:20-0500 Diastolic blood pressure 76 mm[Hg] Doyle Amaro MD Work Phone: [facility] 03-13-2021 10:20-0500 Systolic blood pressure 122 mm[Hg] Doyle Amaro MD Work Phone: [facility] 02-06-2021 09:17-0500 Body height 160 cm Doyle Amaro MD Work Phone: [facility] 02-06-2021 09:17-0500 Body mass index (BMI) [Percentile] Per age and sex 56.34 % Doyle Amaro MD Work Phone: [facility] 02-06-2021 09:17-0500 Body mass index (BMI) [Ratio] 21.97 kg/m2 Doyle Amaro MD Work Phone: [facility] 02-06-2021 09:17-0500 Body weight 56.25 kg Doyle Amaro MD Work Phone: [facility] 02-06-2021 09:17-0500 Diastolic blood pressure 70 mm[Hg] Doyle Amaro MD Work Phone: [facility] 02-06-2021 09:17-0500 Systolic blood pressure 112 mm[Hg] Doyle Amaro MD Work Phone: [facility] 01-14-2021 09:45-0500 Body height 160 cm Avg Gurjit Gal [id number] [facility] 01-14-2021 09:45-0500 Body mass index (BMI) [Percentile] Per age and sex 60.4 % Avg Gurjit Gal [id number] [facility] 01-14-2021 09:45-0500 Body mass index (BMI) [Ratio] 22.32 kg/m2 Avg Gurjit Gal [id number] [facility] 01-14-2021 09:45-0500 Body weight 57.15 kg Avg Gurjit Gal [id number] [facility] 01-14-2021 09:45-0500 Diastolic blood pressure 72 mm[Hg] Avg Gurjit Gal [id number] [facility] 01-14-2021 09:45-0500 Systolic blood pressure 112 mm[Hg] Avg Gurjit Gal [id number] [facility] 09-28-2019 08:35-0400 BP Diastolic 68 mm[Hg] [facility] [place] 09-28-2019 08:35-0400 BP Systolic 140 mm[Hg] [facility] [place] 09-28-2019 08:35-0400 Pulse (Heart Rate) 92 /min [place] [facility] [place] 09-28-2019 08:35-0400 Pulse Oximetry 99 % [facility] 09-28-2019 08:35-0400 Respiratory Rate 16 /min [facility] 09-28-2019 06:54-0400 Body Temperature 98.29 [degF] [facility] 09-27-2019 22:49-0400 BMI (Body Mass Index) 21.43 kg/m2 [facility] 09-27-2019 22:49-0400 Body weight 54.88 kg [facility] 09-27-2019 22:49-0400 Height 160 cm [facility] 05-19-2019 19:55-0400 BP Diastolic 59 mm[Hg] [facility] [place] 05-19-2019 19:55-0400 BP Systolic 114 mm[Hg] [facility] 05-19-2019 19:55-0400 Pulse (Heart Rate) 66 /min [facility], [place] 05-19-2019 19:55-0400 Pulse Oximetry 100 % [facility], [place] 05-19-2019 19:55-0400 Respiratory Rate 18 /min [facility], [place] 05-19-2019 18:36-0400 BMI (Body Mass Index) 21.97 kg/m2 [facility] 05-19-2019 18:36-0400 Body Temperature 98.29 [degF] [facility] [employer] [facility] [place], [place] 05-19-2019 18:36-0400 Body weight 56.25 kg [facility] [employer] [facility] [place] 05-19-2019 18:36-0400 Height 160 cm [facility] [employer] [facility] [place] 03-08-2019 18:31-0500 Body temperature 98.1 [degF] Peter Petty MD Work Phone: [employer] Work Phone: 03-08-2019 18:31-0500 Body weight 57.15 kg Peter Petty MD Work Phone: [employer] Work Phone: 03-08-2019 18:31-0500 Diastolic blood pressure 90 mm[Hg] Peter Petty MD Work Phone: [employer] Work Phone: 03-08-2019 18:31-0500 Heart rate 86 /min Peter Petty MD Work Phone: [employer] Work Phone: 03-08-2019 18:31-0500 Respiratory rate 20 /min Peter Petty MD Work Phone: [employer] Work Phone: 03-08-2019 18:31-0500 SaO2% (BldA) [Mass fraction] 100 % Peter Petty MD Work Phone: [employer] Work Phone: 03-08-2019 18:31-0500 Systolic blood pressure 139 mm[Hg] Peter Petty MD Work Phone: [employer] Work Phone: 01-12-2019 23:01-0500 Pulse Oximetry 99 % [facility] [employer] [facility] [place] 01-12-2019 22:49-0500 BP Diastolic 80 mm[Hg] [facility] [place] 01-12-2019 22:49-0500 BP Systolic 107 mm[Hg] [facility] 01-12-2019 22:17-0500 Body Temperature 97.59 [degF] [facility] 01-12-2019 22:17-0500 Body weight 55.02 kg [facility] 01-12-2019 22:17-0500 Pulse (Heart Rate) 64 /min [facility] 01-12-2019 22:17-0500 Respiratory Rate 16 /min [facility] 12-18-2018 14:52-0400 Height 160 [facility] 12-18-2018 14:47-0400 Body Temperature 99.81 [degF] [facility] 12-18-2018 14:47-0400 BP Diastolic 62 mm[Hg] [facility] 12-18-2018 14:47-0400 BP Systolic 108 mm[Hg] [facility] 12-18-2018 14:47-0400 Pulse (Heart Rate) 82 /min [facility] 12-18-2018 14:47-0400 Pulse Oximetry 96 % [facility] 12-18-2018 14:47-0400 Respiratory Rate 18 /min [facility] 12-16-2018 16:47-0400 BP Diastolic 46 mm[Hg] Marisela Chester [facility] , [place] 12-16-2018 16:47-0400 BP Systolic 94 mm[Hg] [facility] [place] 12-16-2018 16:46-0400 Body Temperature 99.19 [degF] [id number], [place] 12-16-2018 16:46-0400 Body weight 55.2 kg Marisela Chester [facility] , [place] 12-16-2018 16:46-0400 Pulse (Heart Rate) 84 /min [facility], [place] 12-16-2018 16:46-0400 Pulse Oximetry 100 % [facility] [place] , [place] 12-16-2018 16:46-0400 Respiratory Rate 16 /min Marisela Maier [facility] [place], [place] Encounters Encounter Date Encounter Type Care Provider Facility Start: 03-30-2024 End: 03-30-2024 Bamboo flowsheet Jewell MATTHEWS Work Phone: [facility] Start: 03-30-2024 End: 04-04-2024 Bamboo flowsheet Jewell Macedo PA Work Phone: [facility] Start: 03-30-2024 End: 04-04-2024 Clinisync Result Encounter Jewell MATTHEWS Work Phone: [facility] Unsolicited Start: 03-30-2024 End: 03-30-2024 ambulatory JEWELL MACEDO Not Available Start: 03-06-2024 End: 03-06-2024 Bamboo flowsheet Jewell Macedo PA Work Phone: [facility] Start: 03-06-2024 End: 03-06-2024 Bamboo flowsheet Jewell Macedo PA Work Phone: [facility] Start: 03-06-2024 [...] care visit Doyle Amaro MD Work Phone: [facility] [employer] Comment on above: Encounter for superv ision of other normal , third trimester (Primary Dx); 30 weeks gestation of Start: 02-21-2024 ambulatory DOYLE AMARO [facility] Start: 02-18-2024 End: 02-18-2024 Clinisync Result Encounter Meir Jamal DO Work Phone: [facility] Unsolicited Start: 02-18-2024 End: 02-18-2024 Clinisync Result Encounter Meir Jamal DO Work Phone: [facility] Unsolicited Start: 02-07-2024 End: 02-07-2024 Subsequent care visit Malka Allison STRATEGY ANALYST-BACKHAUL DRIVER Work Phone: [facility] [employer] Comment on above: Encounter for superv ision of other normal , third trimester (Primary Dx); 28 weeks gestation of Start: 02-07-2024 ambulatory [facility] Start: 01-25-2024 End: 01-25-2024 ambulatory [facility] Start: 01-24-2024 ambulatory Justin Hewitt Facility:[facility] Start: 01-10-2024 End: 01-10-2024 Subsequent care visit Nahed Stewart MD Work Phone: [facility] [employer] Comment on above: Encounter for superv ision of other normal , second trimester (Primary Dx) Start: 01-10-2024 ambulatory [facility] Start: 12-13-2023 End: 12-13-2023 Subsequent care visit Nahed Stewart MD Work Phone: [facility] [employer] Comment on above: Encounter for superv ision of other normal in second trimester (Primary Dx) Start: 12-13-2023 [facility] Start: 12-13-2023 End: 12-13-2023 Subsequent hospital visit by physician Nahed Stewart MD Work Phone: [facility] Start: 11-11-2023 End: 11-11-2023 Subsequent care visit Nahed Stewart MD Work Phone: [facility] [employer] Comment on above: Encounter for superv ision of other normal in first trimester (Primary Dx); 16 weeks gestation of Start: 11-11-2023 End: 11-11-2023 Subsequent hospital visit by physician Doyle Amaro MD Work Phone: [facility] Start: 11-11-2023 [facility] NAHED STEWART [facility] Start: 10-14-2023 End: 10-14-2023 Subsequent care visit Doyle Amaro MD Work Phone: [facility] [employer] Comment on above: Encounter for superv ision of other normal in first trimester (Primary Dx); Hx of herpes genitalis; Family history of diabetes mellitus in sister; 12 weeks gestation of Start: 10-14-2023 [facility] DOYLE AMARO [facility] Start: 09-26-2023 End: 09-26-2023 Emergency department patient visit Justin Hewitt [facility] Start: 09-24-2023 End: 09-24-2023 Office outpatient visit 5 minutes Nahed Stewart MD Work Phone: [facility] [employer] Comment on above: Encounter for superv ision of other normal in first trimester (Primary Dx); 9 weeks gestation of ; Family history of diabetes mellitus in sister; HSV infection; Major depressive disorder, recurrent episode, moderate Start: 09-24-2023 [facility] Start: 09-16-2023 End: 09-16-2023 Emergency department patient visit Jl Medina [facility] Start: 09-13-2023 End: 09-13-2023 ambulatory Pari Underwood Facility:[facility] Start: 09-13-2023 End: 09-13-2023 Patient encounter procedure Pari Underwood [facility] Start: 09-08-2023 ambulatory Pari Underwood Facili ty:[facility] Start: 08-30-2023 End: 08-30-2023 Emergency department [facility] Start: 08-13-2023 End: 08-13-2023 ambulatory Pari Underwood Facility:[facility] Start: 08-13-2023 End: 08-13-2023 Patient encounter procedure Pari Underwood [facility] Start: 08-04-2023 End: 08-04-2023 Office outpatient visit 15 minutes Nahed Stewart MD Work Phone: [facility] [employer] Comment on above: Vaginal discharge (P rimary Dx) Start: 08-04-2023 [facility] Start: 07-28-2023 ambulatory Pari Underwood Facility: [facility] Start: 04-16-2023 End: 04-16-2023 Office outpatient visit 15 minutes Nahed Stewart MD Work Phone: [facility] [employer] Comment on above: STD exposure (Primar y Dx) Start: 04-16-2023 [facility] Start: 10-24-2022 End: 10-24-2022 Emergency department patient visit [facility] Start: 10-23-2022 [facility] Start: 10-23-2022 End: 10-23-2022 Patient encounter procedure Nahed Stewart MD Work Phone: [facility] Start: 10-23-2022 End: 10-23-2022 Periodic preventive med est patient 18-39 yrs Nahed Stewart MD Work Phone: [facility] [employer] Comment on above: Annual physical exam (Primary Dx) Start: 09-01-2022 [facility] Start: 09-01-2022 End: 09-01-2022 Office outpatient visit 15 minutes Nahed Stewart MD Work Phone: [facility] [employer] Comment on above: Mastitis (Primary Dx ) Start: 06-08-2022 End: 06-08-2022 Emergency department patient visit [facility] Start: 06-08-2022 End: 06-08-2022 Emergency department patient visit [facility] Start: 04-22-2022 [facility] Start: 04-22-2022 End: 04-22-2022 Office outpatient visit 15 minutes Nahed Stewart MD Work Phone: [facility] [employer] Comment on above: depressio n (Primary Dx) Start: 03-20-2022 [facility] Start: 03-20-2022 End: 03-20-2022 Office outpatient visit 15 minutes Nahed Stewart MD Work Phone: [facility] [employer] Comment on above: Anxiety (Primary Dx) Start: 03-13-2022 [facility] Start: 10-24-2021 End: 10-24-2021 Office outpatient visit 15 minutes Nahed Stewart MD Work Phone: [facility] [employer] Comment on above: Genital herpes simpl ex virus (HSV) infection in mother affecting Start: 08-05-2021 End: 08-05-2021 Subsequent care visit Nahed Stewart MD Work Phone: [facility] [employer] Comment on above: Genital herpes simpl ex virus (HSV) infection in mother affecting (Primary Dx); Episodic cannabis use; LGSIL on Pap smear of cervix Start: 07-28-2021 End: 07-28-2021 Subsequent care visit Doyle Amaro MD Work Phone: [facility] [employer] Comment on above: 36 weeks gestation o f (Primary Dx); Encounter for supervision of normal first in third trimester; Hx of herpes genitalis; Episodic cannabis use Start: 07-14-2021 End: 07-14-2021 Subsequent care visit Malka Allison STRATEGY ANALYST-BACKHAUL DRIVER Work Phone: [facility] [employer] Comment on above: Encounter for superv ision of normal first in third trimester (Primary Dx); 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 ; 34 weeks gestation of Start: 06-30-2021 End: 06-30-2021 Subsequent care visit Doyle Amaro MD Work Phone: [facility] [employer] Comment on above: Encounter for superv ision of normal first in third trimester (Primary Dx); Hx of herpes genitalis; 32 weeks gestation of Start: 06-16-2021 End: 06-16-2021 Subsequent care visit Malka Allison STRATEGY ANALYST-BACKHAUL DRIVER Work Phone: [facility] [employer] Comment on above: Encounter for superv ision of normal first in third trimester (Primary Dx); 30 weeks gestation of Start: 06-10-2021 End: 06-10-2021 Subsequent hospital visit by physician Doyle Amaro MD Work Phone: [facility] Start: 06-02-2021 End: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
== END 2024-04-06 11:55 | disposition home or self-care (01) ==
LOC: FBCO 10:01 → FBC 10:04
PROVIDERS: Visit Provider Obstetrics & Gynecology
DX: O26.893 Other specified pregnancy related conditions, third trimester (principal); Z3A.37 37 weeks gestation of pregnancy
CPT/HCPCS: 76818

== ENCOUNTER 2024-04-10 02:07 | Outpatient (OUT) | payer MEDICAID, SELFPAY ==
--- OUTSIDE RECORDS SUMMARY | 2024-04-10 02:11 | XMS_ITS | CCD ---
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 (Acidophilus Probiotic Blend) PATIENT EDUCATION INFORMATION: Instructions: Care; Morning Sickness Follow up: With: Address: When: Abdias HECTOR, [facility], [place] [address] Business (1) In 3 days 09/19/2023 With: Address: When: Pari Underwood In 3 days DIAGNOSIS: Nausea/vomiting in ; Normal [facility] ED Note-Physicianon 09-16-19 ED Note-Physician ED [...] anything for this at the time. Her PERSONALIZED LIVING ASSISTANT is in a different city so we did provide her with Dr. Qureshi for PERSONALIZED LIVING ASSISTANT follow-up. We discussed proper care as well [...] Qureshi In 3 days 09/19/2023 EDT [address], [address] [place] [id number]- [facility] (1) Additional Instructions: Pari Underwood In 3 days Additional Instructions: Patient Education Care Morning Sickness Attestation Patient seen and evaluated by the physician assistant accounting manager. Attending physician was present in the emergency department and supervised care. This visit was performed by both the physician and an APC. I performed all aspects of the MDM as documented. This report was transcribed using voice recognition software. Every effort was made to ensure accuracy, however, inadvertently computerized grain trimmer mistakes may be present. Appropriate healthcare PPE [...] S (more content not included)... Normal [facility] Comment on above: Result Comment: Elec tronically Signed By: Mikel Stewart PA-C\.br\Date and Time Signed: 09/16/23 09:36 EDT\.br\Electronically Co-Signed By: Jl Medina M.D.\.br\Date and Time Co-Signed: 09/16/23 11:27 EDT ED Patient Summaryon 024 ED Patient Summary ED Patient Summary [address] [address] Patient Discharge Instructions Person Information Name: KATHRIN SANTANA Age: 23 Years Arrival Date: 09/16/2023 08:33:42 Discharge Diagnosis: Nausea/vomiting in ; Primary Care Physician: Pari Underwood PA-C Provider Information Primary Provider: Jl Medina M.D. Advanced Wash Crew Person:Mikel Stewart PA-C The exam and treatment you received in the Emergency Department were for an urgent problem and are not intended as complete care. It is important that you follow up with a doctor, nurse practitioner, or physician?s assistant accounting manager for ongoing care. If your symptoms become worse or you do not improve as expected and you are unable to reach your usual health care provider, you should return to the Emergency Department. We are available 24 hours a day. KATHRIN SANTANA has been given the following list of patient education materials, prescriptions and follow-up instructions: Follow-up Instructions: With: Address: When: Abdias Qureshi [address] [place], [place] [id number] [facility] () In 3 days 09/19/2023 With: [...] opioids can be used to help relieve dwjscsog-cm-uelwtr pain and are often prescribed following a [...] he (more content not included)... Normal [facility] Family Medicine Office/Clini c Noteon 09-16-2023 [...] follow-up appointment with her Dr. Nahed Stewart, bid clerk tomorrow, during which her bid clerk has agreed to maintain her current medication [...] advised to maintain close follow-up with the bid clerk. 2. (Z34.90: Encounter for supervision of normal [...] with voice recognition artificial intelligence software, specifically [employer], [employer] and or [employer]. Substitutions may have occurred due to the inherent limitations of voice recognition and artificial intelligence software. ATTESTATION: This note has been generated by [employer] and edited by Brooke Carcamo, Quality Primary Special Educator. Follow-up With When Contact Information Pari Underwood PA-C In 3 months [address] [place] [phone] Additional Instructions: Patient Education Major Depressive Disorder, [...] Father. Depression: Mother and Father. Normal [facility] Comment on above: Result Comment: Elec tronically Signed By: Pari Underwood PA-C\.br\Date and Time Signed: 09/16/23 12:42 EDT\.br\Electronically Co-Signed By: Jessica Cagle\.br\Date and Time Co-Signed: 09/13/23 12:51 EDT SEROLOGYOrdered By: Rossi Calloway on 09-16-2023 HCG.beta subunit (U) [Moles/Vol] Positive (09/16/23 8:46 AM) Normal [facility] Sero U BetaHcg Qualon 09-16-2023 HCG.beta subunit (U) [Moles/Vol] Positive Normal [facility] Comment on above: Performed By: #### 2 [id number] #### [facility] [address] [place] [address] UA with Cult Rflxon 09-16-19 24 Bilirubin Ql (U) Negative Normal Negative [facility] Comment on above: Performed By: #### 4 [id number] #### [facility] [address] [place] [address] Clarity (U) Clear Normal Clear [facility] Comment on above: Performed By: #### 4 [id number] #### [facility] [address] [place] [address] Color (U) Light-Yellow Normal Yellow [facility] Comment on above: Result Comment: Micr oscopic readings are only performed on those samples that meet specific criteria set forth by [facility]. Performed By: #### 4 [id number] #### [facility] [address] [place] [address] Glucose Ql (U) Negative Normal Negative [facility] Comment on above: Performed By: #### 4 [id number] #### [facility] [address] [place] [address] Hemoglobin Auto test strip (U) [Mass/Vol] Negative Normal Negative [facility] Comment on above: Performed By: #### 4 [id number] #### [facility] [address] [place] [address] Ketones Auto test strip Ql (U) Negative Normal Negative [facility] Comment on above: Performed By: #### 4 [id number] #### [facility] [address] [place] [address] Leukocyte esterase Auto test strip Ql (U) Negative Normal Negative [facility] Comment on above: Performed By: #### 4 [id number] #### [facility] [address] [place] [address] Nitrite Auto test strip Ql (U) Negative Normal Negative [facility] Comment on above: Performed By: #### 4 [id number] #### [facility] [address] [place] [address] pH (U) 6.5 [pH] Invalid Interpretation Code 5.0-9.0 [facility] Comment on above: Performed By: #### 4 [id number] #### [facility] [address] [place] [address] Protein Ql (U) Negative Normal Negative [facility] Comment on above: Performed By: #### 4 [id number] #### [facility] [address] [place] [address] Specific gravity (U) [Rel density] 1.017 Invalid Interpretation Code 1.005-1.030 [facility] Comment on above: Performed By: #### 4 [id number] #### [facility] [address] [place] [address] Urobilinogen (U) [Mass/Vol] Negative Normal Negative [facility] Comment on above: Performed By: #### 4 [id number] #### [facility] [address] [place] [address] Type of Urine collection method Clean Catch Normal [facility] Comment on above: Performed By: #### 4 [id number] #### [facility] [address] [place] [address] URINALYSISOrdered By: SYSTEM SYSTEM on 09-16-2023 Bilirubin Ql (U) Negative Normal Negativemg/dL FT UA Auto SS Clarity (U) Clear (09/16/23 8:46 AM) Normal Clear [facility] UA Auto SS Color (U) Light-Yellow 1 (09/16/23 8:46 AM) Normal Yellow [facility] UA Auto SS Comment on above: Interpretive Data: M icroscopic readings are only performed on those samples that meet specific criteria set forth by [facility]. Glucose Ql (U) Negative Normal Negativemg/dL [facility] UA Auto SS Hemoglobin Auto test strip (U) [Mass/Vol] Negative Normal Negativemg/dL [facility] UA Aut o SS Ketones Auto test [...] When: In 3 months Where: [address] [place] [phone] Medications What How Much When Instructions New aripiprazole (aripiprazole 5 mg Tab) 1 Tablets By Mouth Every day Refills: 2 Pickup at [facility][id number] Unchanged lactobacillus acidophilus (Acidophilus Probiotic Blend) Pharmacy Information [facility] #[id number]: [address] [place], [place] [id number] [phone] Allergies No Known Medication Allergies Problems Ongoing - Any problem that you are currently receiving treatment for. BMI 23.0-23.9, adult Patient Survey You may receive a survey via text or e-mail asking about your office visit. Please share your experience with us by completing your survey. We appreciate your feedback and thank you for choosing us for your care. [facility] ED Note-Physicianon 08-31-19 ED Note-Physician [id number] #1.00TIFF [facility] CBC with Diffon 08-30-2023 Abs. Basophil 0.04 k/uL Normal 0.00-0.20 [facility] Comment on above: Performed By: #### C DP #### [facility] [address] [place], [place] [id number] Head Concierge: Gio Peña MD Abs.Imm.Granulocyte 0.02 k/uL Normal 0.00-0.30 [facility] Comment on above: Performed By: #### C DP #### [facility] [address] [place], [place] [id number] Head Concierge: Gio Peña MD Abs.Neutrophil (Seg) 4.62 k/uL Normal 2.5-7.0 [facility] Comment on above: Performed By: #### C DP #### [facility] [address] [place] [address] Head Concierge: Gio Peña MD Basophils/100 WBC (Bld) 1 % Normal 0-2 [facility] Comment on above: Performed By: #### C DP #### [facility] [address] [place] [address] Head Concierge: Gio Peña MD Eosinophils (Bld) [#/Vol] 0.09 10*3/uL Normal 0.00-0.40 [facility] Comment on above: Performed By: #### C DP #### [facility] [address] [place] [address] Head Concierge: Gio Peña MD Eosinophils/100 WBC (Bld) 1 % Normal 0-5 [facility] Comment on above: Performed By: #### C DP #### [facility] [address] [place] [address] Head Concierge: Gio Peña MD Erythrocyte distribution width (RBC) [Ratio] 12.8 % Normal 12.1-15.2 [facility] Comment on above: Performed By: #### C DP #### [facility] [address] [place] [address] Head Concierge: Gio Peña MD Hematocrit (Bld) [Volume fraction] 38.0 % Normal 36.0-46.0 [facility] Comment on above: Performed By: #### C DP #### [facility] [address] [place] [address] Head Concierge: Gio Peña MD Hemoglobin (Bld) [Mass/Vol] 12.5 g/dL Normal 12.0-16.0 [facility] Comment on above: Performed By: #### C DP #### [facility] [address] [place] [address] Head Concierge: Gio Peña MD Immature granulocytes/100 WBC (Bld) 0 % Normal 0-5 [facility] Comment on above: Performed By: #### C DP #### [facility] [address] [place] [id number] Head Concierge: Gio Peña MD Lymphocytes (Bld) [#/Vol] 1.87 10*3/uL Normal 1.00-4.80 [facility] Comment on above: Performed By: #### C DP #### [facility] [address] [place] [id number] Head Concierge: Gio Peña MD Lymphocytes/100 WBC (Bld) 26 % Normal 15-40 [facility] Comment on above: Performed By: #### C DP #### [facility] [address] [place] [address] Head Concierge: Gio Peña MD MCH (RBC) [Entitic mass] 28.2 pg Normal 26.0-34.0 [facility] Comment on above: Performed By: #### C DP #### [facility] [address] [place] [address] Head Concierge: Gio Peña MD MCHC (RBC) [Mass/Vol] 32.9 g/dL Normal 31.0-37.0 [facility] Comment on above: Performed By: #### C DP #### [facility] [address] [place] [address] Head Concierge: Gio Peña MD MCV (RBC) [Entitic vol] 85.8 fL Normal 80.0-100.0 [facility] Comment on above: Performed By: #### C DP #### [facility] [address] [place], [place] [id number] (930) Head Concierge: Gio Peña MD Monocytes (Bld) [#/Vol] 0.55 10*3/uL Normal 0.00-1.00 [facility] Comment on above: Performed By: #### C DP #### [facility] [address] [place], [place] [id number] ([phone] Head Concierge: Gio Peña MD Monocytes/100 WBC (Bld) 8 % Normal 4-8 [facility] Comment on above: Performed By: #### C DP #### [facility] [address] [place] [address] (018) Head Concierge: Gio Peña MD Neutrophil (Seg) 64 % Normal 47-75 [facility] Comment on above: Performed By: #### C DP #### [facility] [address] [place] [address] (320) Head Concierge: Gio Peña MD Platelet mean volume (Bld) [Entitic vol] 9.7 fL Normal 6.0-12.0 [facility] Comment on above: Performed By: #### C DP #### [facility] [address] [place] [address] (709) Head Concierge: Gio Peña MD Platelets (Bld) [#/Vol] 265 10*3/uL Normal 140-450 [facility] Comment on above: Performed By: #### C DP #### [facility] [address] [place], [place] [id number] ([phone] Head Concierge: Gio Peña MD RBC (Bld) [#/Vol] 4.43 10*6/uL Normal 4.00-5.20 [facility] Comment on above: Performed By: #### C DP #### [facility] [address] [place], [place] [phone] ([phone] Head Concierge: Gio Peña MD WBC (Bld) [#/Vol] 7.2 10*3/uL Normal 4.5-13.5 [facility] Comment on above: Performed By: #### C DP #### [facility] [address] [place], [place] [id number] Head Concierge: Gio Peña MD HCG, Quanton 08-30-2023 HCG, Quant 85727.0 mIU/mL High <5 [facility] Comment on above: Result Comment: Non-preg premeno <=5 Postmeno <=8 Male <=3 If HCG results do not concur with clinical observations, additional testing to confirm results is recommended. Performed By: #### B HCG #### [facility] [address] [place] [address] Head Concierge: Gio Peña MD Type + Screenon 08-30-2023 Type + Screen Sample Expiration 09/02/2023,2359 ABO/Rh(D) O POSITIVE Antibody Screen NEGATIVE Normal [facility] Comment on above: Performed By: #### T YS #### [facility] [address] [place] [address] Head Concierge: Gio Peña MD Family Medicine Office/Clini c [...] side effects, signs (more content not included)... Normal [facility] Comment on above: Result Comment: Elec tronically Signed By: Pari Underwood PA-C\.br\Date and Time Signed: 08/19/23 20:54 EDT\.br\Electronically Co-Signed By: Julia Rodriguez\.king\Date and Time Co-Signed: 08/13/23 17:18 EDT [employer] 08-16-2023 Forms [id number]# 1.00TIFF [facility] Ambulatory Visit Summaryon 0 08-13-2023 Ambulatory Visit [...] AM EDT With: Pari Underwood PA-C Where: [facility] [place] Normal [facility] Patient Educationon 08-13-19 24 Patient Education [...] pray, or go to a place of jehovah's witness. ? Do some deep breathing. To do [...] or salt (sodium). General instructions ? Take mxvr-cbx-koysoxz and prescription medicines only as told by [...] ica.ne (more content not included)... Normal [facility] CHLAMYDIA/GCon 08-04-2023 CHLAMYDIA TRACH Not detected Normal NOT DETECTED [facility] Comment on above: Performed By: #### C TNG #### [place] [address] N.GONORRHOEAE Not detected Normal NOT DETECTED [facility] Comment on above: Result Comment: TEST ING PERFORMED BY PCR Testing performed at [place] [address] Performed By: #### C TNG #### [place] [address] CHLAMYDIA/GONOCOCCUS, NAAon 08-04-2023 CHLAMYDIA TRACHOMATIS Not detected NOT DETECTED [facility] NEISSERIA GONORRHOEAE Not detected NOT DETECTED [facility] Comment on above: TESTING PERFORMED BY PCR Testing performed at [address] TRICH VAGon 08-04-2023 TRICH VAG Not detected Normal NOT DETECTED [facility] Comment on above: Result Comment: TEST ING PERFORMED BY PCR Testing performed at [place] [address] Performed By: #### A TV #### [place] [address] TRICHOMONAS VAGINALIS, NAAon 08-04-2023 T. vaginalis rRNA TELMA+probe Ql (Unsp spec) Not detected NOT DETECTED [facility] Comment on above: TESTING PERFORMED BY PCR Testing performed at [address] CHLAMYDIA/GCon 04-16-2023 CHLAMYDIA TRACH Not detected Normal NOT DETECTED [facility] Comment on above: Performed By: #### C TNG #### [place] [address] N.GONORRHOEAE Not detected Normal NOT DETECTED [facility] Comment on above: Result Comment: TEST ING PERFORMED BY PCR Testing performed at [place] [address] Performed By: #### C TNG #### [place] [address] CHLAMYDIA/GONOCOCCUS, NAAon 04-16-2023 CHLAMYDIA TRACHOMATIS Not detected NOT DETECTED [facility] NEISSERIA GONORRHOEAE Not detected NOT DETECTED [facility] Comment on above: TESTING PERFORMED BY PCR Testing performed at [address] TRICH VAGon 04-16-2023 TRICH VAG Not detected Normal NOT DETECTED [facility] Comment on above: Result Comment: TEST ING PERFORMED BY PCR Testing performed at [place] [address] Performed By: #### C TNG #### [place] [address] TRICHOMONAS VAGINALIS, NAAon 04-16-2023 T. vaginalis rRNA TELMA+probe Ql (Unsp spec) Not detected NOT DETECTED [facility] Comment on above: TESTING PERFORMED BY PCR Testing performed at [address] XR RIBS WITH CHEST, RIGHTon 10-24-2022 [...] fractures identified. IMPRESSION: No acute findings. Normal [facility] CHLAMYDIA/GCon 10-23-2022 CHLAMYDIA TRACH Not detected Normal NOT DETECTED [facility] Comment on above: Performed By: #### C TNG #### [place] [address] N.GONORRHOEAE Not detected Normal NOT DETECTED [facility] Comment on above: Result Comment: TEST ING PERFORMED BY PCR Testing performed at [place] [address] Performed By: #### C TNG #### [place] [address] CHLAMYDIA/GONOCOCCUS, NAAon 10-23-2022 CHLAMYDIA TRACHOMATIS Not detected NOT DETECTED [facility] NEISSERIA GONORRHOEAE Not detected NOT DETECTED [facility] Comment on above: TESTING PERFORMED BY PCR Testing performed at [address] TRICH VAGon 10-23-2022 TRICH VAG Not detected Normal NOT DETECTED [facility] Comment on above: Result Comment: TEST ING PERFORMED BY PCR Testing performed at [place] [address] Performed By: #### A TV #### [place] [address] TRICHOMONAS VAGINALIS, NAAon 10-23-2022 T. vaginalis rRNA TELMA+probe Ql (Unsp spec) Not detected NOT DETECTED [facility] Comment on above: TESTING PERFORMED BY PCR Testing performed at [address] CBC, EDIF, PLATELETon 2021 ABSOLUTE BASOPHIL COUNT 0.0 10*3/uL 0.0 - 0.2 10*3/uL [facility] Comment on above: Testing performed at [place] [address] Basophils/100 WBC (Bld) 0.5 % 0.0 - 2.0 % [facility] Differential cell count method Nom (Bld) AUTO DIFF % [facility] Eosinophils (Bld) [#/Vol] 0.20 10*3/uL 0.0 - 0.7 10*3/uL [facility] Eosinophils/100 WBC (Bld) 1.9 % 0.0 - 11.0 % [facility] Erythrocyte distribution width (RBC) [Ratio] 13.1 % 11.5 - 14.5 % [facility] Hematocrit (Bld) [Volume fraction] 32.9 % Low 36.0 - 48.0 % [facility] Hemoglobin (Bld) [Mass/Vol] 11.5 g/dL Low [facility] Interpretation and review of laboratory results Abnormal [facility] Lymphocytes (Bld) [#/Vol] 1.50 10*3/uL 1.2 - 3.4 10*3/uL [facility] Lymphocytes/100 WBC (Bld) 17.3 % Low 20.0 - 55.0 % [facility] MCH (RBC) [Entitic mass] 31.1 pg 26.0 - 35.0 PG [facility] MCHC (RBC) [Mass/Vol] 35.0 g/dL [facility] MCV (RBC) [Entitic vol] 89.0 fL [facility] Monocytes (Bld) [#/Vol] 0.8 10*3/uL High 0.0 - 0.7 10*3/uL [facility] Monocytes/100 WBC (Bld) 8.6 % 0.0 - 10.0 % [facility] Neutrophils (Bld) [#/Vol] 6.3 10*3/uL 1.4 - 6.5 10*3/uL [facility] Neutrophils/100 WBC (Bld) 71.7 % 37.0 - 75.0 % [facility] Platelet mean volume (Bld) [Entitic vol] 8.4 fL [facility] Platelets (Bld) [#/Vol] 226 10*3/uL 130.0 - 400.0 10*3/uL [facility] RBC (Bld) [#/Vol] 3.69 10*6/uL Low 4.0 - 5.4 10*6/uL [facility] WBC (Bld) [#/Vol] 8.8 10*3/uL 3.6 - 11.0 10*3/uL [facility] GLUCOSE POST LOADINGon 06-02 Glucose 1 Hr post 50 g glucose PO [Mass/Vol] 93 mg/dL [facility] Comment on above: Testing performed at [place], [place] [address] [facility] COLPOSCOPYon 03-13-2021 Doyle Amaro MD 03/13/2021 11:15 [...] as needed for mild to moderate pain. [facility] Narrative [Interpretat ion] Study observation general USon 02-06-2021 : 1. Single of 11 weeks and 5 days. 2. heart rate of 168 bpm. 3. US SEBASTIAN 08/23/2021, which is inconsistent with SEBASTIAN by LMP and should be changed. [facility] REFERRING PHYSICIAN: Dr. Amaro TECHNOLOGIST: Ashley Acosta PROCEDURE DATE : 02/06/2021 INDICATIONS: Early gestational, dating LMP 11/09/2020, SEBASTIAN 08/16/2021 PROCEDURE DETAILS A single was noted within the uterus. heart rate of 168 bpm. The CRL measures 5.03 cm , 11 weeks 5 days. FINAL [facility] Radiology Study observation (narrative) [facility] ABO/RH(D) TYPINGon 1 ABO and Rh group Nom (Bld ) Positive [facility] ABO and Rh group Nom (Bld ) Testing performed at [place] [id number] [facility] ANTIBODY SCREENon 01-14-2021 Blood group antibody screen Ql Negative [facility] EXPIRATION DATE 01/17/2021,2359 [facility] EXPIRATION DATE Testing performed at [place], [place] [address] [facility] CBC, EDIF, PLATELETon 2020 ABSOLUTE BASOPHIL COUNT 0.0 10*3/uL 0.0 - 0.2 10*3/uL [facility] Comment on above: Testing performed at [place], [place] [address] Basophils/100 WBC (Bld) 0.6 % 0.0 - 2.0 % [facility] Differential cell count method Nom (Bld) AUTO DIFF % [facility] Eosinophils (Bld) [#/Vol] 0.10 10*3/uL 0.0 - 0.7 10*3/uL [facility] Eosinophils/100 WBC (Bld) 1.3 % 0.0 - 11.0 % [facility] Erythrocyte distribution width (RBC) [Ratio] 13.5 % 11.5 - 14.5 % [facility] Hematocrit (Bld) [Volume fraction] 35.9 % Low 36.0 - 48.0 % [facility] Hemoglobin (Bld) [Mass/Vol] 12.2 g/dL [facility] Interpretation and review of laboratory results Abnormal [facility] Lymphocytes (Bld) [#/Vol] 2.40 10*3/uL 1.2 - 3.4 10*3/uL [facility] Lymphocytes/100 WBC (Bld) 34.3 % 20.0 - 55.0 % [facility] MCH (RBC) [Entitic mass] 28.7 pg 26.0 - 35.0 PG [facility] MCHC (RBC) [Mass/Vol] 33.9 g/dL [facility] MCV (RBC) [Entitic vol] 84.7 fL [facility] Monocytes (Bld) [#/Vol] 0.7 10*3/uL 0.0 - 0.7 10*3/uL [facility] Monocytes/100 WBC (Bld) 9.7 % 0.0 - 10.0 % [facility] Neutrophils (Bld) [#/Vol] 3.8 10*3/uL 1.4 - 6.5 10*3/uL [facility] Neutrophils/100 WBC (Bld) 54.1 % 37.0 - 75.0 % [facility] Platelet mean volume (Bld) [Entitic vol] 9.3 fL [facility] Platelets (Bld) [#/Vol] 289 10*3/uL 130.0 - 400.0 10*3/uL [facility] RBC (Bld) [#/Vol] 4.23 10*6/uL 4.0 - 5.4 10*6/uL [facility] WBC (Bld) [#/Vol] 7.1 10*3/uL 3.6 - 11.0 10*3/uL [facility] HIV 1+2 Ab+HIV1 p24 Ag IA Ql on 01-14-2021 HIV 1+2 Ab IA Ql Non-Reactive NONREACTIVE [facility] Comment on above: Testing performed at [address] [facility] RAPID TOX SCREEN WITH RELEX TO DRUGMCon 01-14-2021 Amphetamine (U) [Mass/Vol] Negative NEGATIVE NG/ML [facility] Comment on above: <500 ng/ml CUTOFF Barbiturates Screen Ql (U) Negative NEGATIVE NG/ML [facility] Comment on above: <200 ng/ml CUTOFF Benzodiazepines Ql (U) Negative NEGATIVE NG/ML [facility] Comment on above: <150 ng/ml CUTOFF Benzoylecgonine Ql (U) Negative NEGATIVE NG/ML [facility] Comment on above: <150 ng/ml CUTOFF Buprenorphine Ql (U) Negative NEGATIVE NG/ML [facility] Comment on above: <10 ng/ml CUTOFF Testing performed at [place] [address] Cannabinoids Screen Ql (U) Positive Abnormal NEGATIVE NG/ML [facility] Comment on above: <50 ng/ml CUTOFF *Unconfirmed Screening Result* Unconfirmed screening results are to be used only for medical treatment purposes. Interpretation and review of laboratory results Abnormal [facility] Methadone Screen Ql (U) Negative NEGATIVE NG/ML [facility] Comment on above: <200 ng/ml CUTOFF Methamphetamine (U) [Mass/Vol] Negative NEGATIVE NG/ML [facility] Comment on above: <500 ng/ml CUTOFF Opiates Screen Ql (U) Negative NEGATIVE NG/ML [facility] Comment on above: <100 ng/ml CUTOFF oxyCODONE Ql (U) Negative NEGATIVE NG/ML [facility] Comment on above: <100 ng/ml CUTOFF Phencyclidine Screen method >25 ng/mL Ql (U) Negative NEGATIVE NG/ML [facility] Comment on above: <25 ng/ml CUTOFF Propoxyphene+Norpropo xyphene Screen Ql (U) Negative NEGATIVE NG/ML [facility] Comment on above: <300 ng/ml CUTOFF Tricyclic antidepressants Screen Ql (U) Negative NEGATIVE NG/ML [facility] Comment on above: <300 ng/ml CUTOFF [facility] REQUEST FOR MISC LAB SENDOUT on 01-14-2021 Miscellaneous Test 1 SPECIMEN SENT TO REFERENCE LAB FOR TESTING [facility] Comment on above: [id number] CANNABINOID Testing performed at [place], [place] [id number] [place] [address] Chlamydia/GC,DNA Ampon 08-09 Chlamydia Probe Negative Normal NEG [facility] Comment on above: Result Comment: CHLA MYDIA [...] nucleic acid target. Performed By: #### S [facility] #### [employer] [address] [place] [id number] Head Concierge: Geovani Cordon MD Gonorrhea Probe Negative Normal NEG [facility] Comment on above: Result Comment: NEIS SERIA [...] target. Performed By: #### S [facility] #### [employer] [address] [place] [address] [place] [address] Head Concierge: Geovani Cordon MD Herpes 1+2 Molecularon 08-09 HSV-1, NAAT Negative Normal NEG [facility] Comment on above: Result Comment: HSV- 1 DNA not detected by nucleic acid amplification Performed By: #### H BS, HSVDNA, TREP, AHCV, HIVCMB #### [facility] [employer] [address] [place] [phone] Head Concierge: Geovani Cordon MD HSV-2, NAAT Negative Normal [facility] Comment on above: Result Comment: HSV- 2 DNA not detected by nucleic acid amplification Performed By: #### H BS, HSVDNA, TREP, AHCV, HIVCMB #### [facility] [employer] [address] [place] [id number] Head Concierge: Geovani Cordon MD Vaginitis DNA Probeon 2020 [...] of vaginitis/vaginosis. Report Status FINAL 08/09/2020 Normal [facility] Comment on above: Performed By: #### V AGDNA #### [address] [address] Head Concierge: Geovani Cordon MD [facility] [address] [place] [address] Head Concierge: Gio Peña MD HIV Ag/Abon 08-08-2020 HIV Ag/Ab Non-Reactive Normal NR [facility] Comment on above: Result Comment: No l aboratory evidence of HIV infection. If acute HIV infection is suspected, consider testing for HIV-1 RNA. Performed By: #### H BS, HSVDNA, TREP, AHCV, HIVCMB #### [facility] [employer] [address] [place] [address] [phone] Head Concierge: Geovani Cordon MD Hep B Surf Agon 08-08-2020 Hep B Surf Ag Non-Reactive Normal [facility] Comment on above: Performed By: #### H BS, HSVDNA, TREP, AHCV, HIVCMB #### [facility] [employer] [address] [place] [address] [id number] Head Concierge: Geovani Cordon MD Hep C Abon 08-08-2020 Hep C Ab Non-Reactive Normal [facility] Comment on above: Result Comment: The [...] H BS, HSVDNA, TREP, AHCV, HIVCMB #### [facility] [employer] [address] [place] [address] Head Concierge: Geovani Cordon MD Herpes 1+2 Molecularon 08-08 Source: NOT REPORTED Normal [facility] Comment on above: Performed By: #### H BS, HSVDNA, TREP, AHCV, HIVCMB #### [facility] [employer] [address] [place] [phone] Head Concierge: Geovani Cordon MD T.pallidum Ab Screenon 08-08 T.pallidum Ab Screen Non-Reactive Normal [facility] Comment on above: Result Comment: T. pallidum antibodies are not detected. There is no serological evidence of infection with T. pallidum (early primary syphilis cannot be excluded). Retest in 2-4 weeks if syphilis is clinically suspect. Performed By: #### H BS, HSVDNA, TREP, AHCV, HIVCMB #### [facility] [employer] [address] [place] [address] [phone] Head Concierge: Geovani Cordon MD CBC W/DIFFon 09-29-2019 ABS BASOPHILS 0.1 10*3/uL Normal 0.0-0.2 [facility] Comment on above: Order Comment: No: D o not add to previous draw Performed By: #### 5 0103 #### [facility] [address] [place] [address], [facility] ABS IMM GRANS 0.0 10*3/uL Normal 0.0-0.2 [facility] Comment on above: Order Comment: No: D o not add to previous draw Performed By: #### 5 0103 #### [facility] [address] [place] [address], [facility] ABS NEUTROPHILS 2.1 10*3/uL Normal 1.6-7.6 [facility] Comment on above: Order Comment: No: D o not add to previous draw Performed By: #### 5 0103 #### [facility] [address] [place] [address], [facility] Basophils/100 WBC (Bld) 1.2 % High 0.0-1.0 [facility] Comment on above: Order Comment: No: D o not add to previous draw Performed By: #### 5 0103 #### [facility] [address] [facility] [place] [address], [facility] Eosinophils (Bld) [#/Vol] 0.3 10*3/uL Normal 0.0-0.5 [facility] Comment on above: Order Comment: No: D o not add to previous draw Performed By: #### 5 0103 #### [facility] [address] [facility] [place] [id number], [facility] Eosinophils/100 WBC (Bld) 4.5 % Normal 0.0-6.0 [facility] Comment on above: Order Comment: No: D o not add to previous draw Performed By: #### 5 0103 #### [facility] [address] [facility] [place] [id number], [facility] Erythrocyte distribution width (RBC) [Ratio] 14.0 % Normal 11.5-15.0 [facility] Comment on above: Order Comment: No: D o not add to previous draw Performed By: #### 5 0103 #### [facility] [address] [facility] [place] [address], [facility] Hematocrit (Bld) [Volume fraction] 39.7 % Normal 36.0-45.0 [facility] Comment on above: Order Comment: No: D o not add to previous draw Performed By: #### 5 0103 #### [facility] [address] [facility] [place] [address], [facility] Hemoglobin (Bld) [Mass/Vol] 12.9 g/dL Normal 12.0-15.0 [facility] Comment on above: Order Comment: No: D o not add to previous draw Performed By: #### 5 0103 #### [facility] [address] [facility] [place] [address], [facility] IMMATURE GRANS 0.3 % Normal 0.0-1.0 [facility] Comment on above: Order Comment: No: D o not add to previous draw Performed By: #### 5 0103 #### [facility] [address] [facility] [place] [place] [address], [facility] Lymphocytes (Bld) [#/Vol] 3.1 10*3/uL Normal 1.2-4.0 [facility] Comment on above: Order Comment: No: D o not add to previous draw Performed By: #### 5 0103 #### [facility] [address] [facility] [place] [address], [facility] Lymphocytes/100 WBC (Bld) 51.7 % High 20.0-45.0 [facility] Comment on above: Order Comment: No: D o not add to previous draw Performed By: #### 5 0103 #### [facility] [address] [facility] [place] [address], [facility] MCH (RBC) [Entitic mass] 27.7 pg Normal 27.0-33.0 [facility] Comment on above: Order Comment: No: D o not add to previous draw Performed By: #### 5 0103 #### [facility] [address] [place] [address], [facility] MCHC (RBC) [Mass/Vol] 32.5 g/dL Normal 32.0-35.0 [facility] Comment on above: Order Comment: No: D o not add to previous draw Performed By: #### 5 0103 #### [facility] [address] [place] [id number], [facility] MCV (RBC) [Entitic vol] 85.2 fL Normal 82.0-98.0 [facility] Comment on above: Order Comment: No: D o not add to previous draw Performed By: #### 5 0103 #### [facility] [address] [facility] [place] [address], [facility] Monocytes (Bld) [#/Vol] 0.4 10*3/uL Normal 0.1-1.0 [facility] Comment on above: Order Comment: No: D o not add to previous draw Performed By: #### 5 0103 #### [facility] [address] [facility] [place] [id number], [facility] MONOS 7.2 % Normal 5.0-12.0 [facility] Comment on above: Order Comment: No: D o not add to previous draw Performed By: #### 5 0103 #### [facility] [address] [place] [address], [facility] Neutrophils/100 WBC (Bld) 35.1 % Low 40.0-72.0 [facility] Comment on above: Order Comment: No: D o not add to previous draw Performed By: #### 5 0103 #### [facility] [address] [place] [id number], [facility] Nucleated RBC/100 WBC (Bld) [Ratio] 0 % Normal 0-0 [facility] Comment on above: Order Comment: No: D o not add to previous draw Performed By: #### 5 0103 #### [facility] [address] [place] [id number], [facility] PLAT CNT 237 10*3/uL Normal 150-400 [facility] Comment on above: Order Comment: No: D o not add to previous draw Performed By: #### 5 0103 #### [facility] [address] [place] [address], [facility] RBC (Bld) [#/Vol] 4.66 10*6/uL Normal 3.80-5.00 [facility] Comment on above: Order Comment: No: D o not add to previous draw Performed By: #### 5 0103 #### [facility] [address] [place] [id number], [facility] WBC (Bld) [#/Vol] 5.96 10*3/uL Normal 4.00-10.60 [facility] Comment on above: Order Comment: No: D o not add to previous draw Performed By: #### 5 0103 #### [facility] [address] [place] [address], [facility] COMP METABOLIC PANELon 09-28 Albumin [Mass/Vol] 4.5 g/dL Normal 3.5-5.7 [facility] Comment on above: Order Comment: No: D o not add to previous draw Performed By: #### 4 4396, 54458, 71408, 32080, 16097, 84709 #### [facility] [address] [place] [address], [facility] ALKALINE PHOSPH 59 IU/L Normal 40-460 [facility] Comment on above: Order Comment: No: D o not add to previous draw Performed By: #### 4 4396, 63539, 89481, 64277, 42381, 71560 #### [facility] [address] [place] [address], [facility] ALT [Catalytic activity/Vol] 10 U/L Normal 7-52 [facility] Comment on above: Order Comment: No: D o not add to previous draw Performed By: #### 4 4396, 16615, 96043, 53896, 05685, 46318 #### [facility] [address] [place] [address], [place] AST [Catalytic activity/Vol] 17 U/L Normal 13-39 [facility] Comment on above: Order Comment: No: D o not add to previous draw Performed By: #### 4 4396, 30417, 07418, 18747, 01877, 57841 #### [facility] [address] [place] [address], [place] Bilirubin [Mass/Vol] 0.4 mg/dL Normal 0.3-1.0 [facility] Comment on above: Order Comment: No: D o not add to previous draw Performed By: #### 4 4396, 69746, 57217, 50330, 93183, 61297 #### [facility] [address] [place] [address], [place] Calcium [Mass/Vol] 9.5 mg/dL Normal 8.6-10.3 [facility] Comment on above: Order Comment: No: D o not add to previous draw Performed By: #### 4 4396, 69364, 75127, 30475, 52929, 26916 #### [facility] [address] [place] [address], [place] Chloride [Moles/Vol] 104 mmol/L Normal 98-107 [facility] Comment on above: Order Comment: No: D o not add to previous draw Performed By: #### 4 4396, 29416, 64758, 21931, 39855, 08625 #### [facility] [address] [place] [address], [place] CO2 [Moles/Vol] 28 mmol/L Normal 21-31 [facility] Comment on above: Order Comment: No: D o not add to previous draw Performed By: #### 4 4396, 34848, 65963, 48355, 59371, 45923 #### [facility] [address] [place] [address], [place] Creatinine [Mass/Vol] 0.66 mg/dL Normal 0.60-1.20 [facility] Comment on above: Order Comment: No: D o not add to previous draw Performed By: #### 4 4396, 58625, 57641, 19340, 60635, 07906 #### [facility] [address] [place] [address], [place] GFR/1.73 sq M predicted among blacks MDRD (S/P/Bld) [Vol rate/Area] Calculation not validated for patients under 18 years Abnormal >60 [facility] Comment on above: Order Comment: No: D o not add to previous draw Performed By: #### 4 4396, 96498, 82467, 26825, 39605, 76859 #### [facility] [address] [place] [address], [place] GFR/1.73 sq M predicted among non-blacks MDRD (S/P/Bld) [Vol rate/Area] Calculation not validated for patients under 18 years Abnormal >60 [facility] Comment on above: Order Comment: No: D o not add to previous draw Performed By: #### 4 4396, 21038, 69014, 78234, 60955, 48078 #### [facility] [address] [place] [address], [place] Glucose [Mass/Vol] 139 mg/dL High 70-100 [facility] Comment on above: Order Comment: No: D o not add to previous draw Performed By: #### 4 4396, 52654, 37102, 19738, 40080, 99313 #### [facility] [address] [place] [address], [place] Potassium [Moles/Vol] 3.6 mmol/L Normal 3.5-5.1 [facility] Comment on above: Order Comment: No: D o not add to previous draw Performed By: #### 4 4396, 48204, 34318, 17929, 17499, 11826 #### [facility] [address] [place] [address], [facility] Protein [Mass/Vol] 7.2 g/dL Normal 6.0-8.3 [facility] Comment on above: Order Comment: No: D o not add to previous draw Performed By: #### 4 4396, 91805, 83472, 74328, 67647, 94037 #### [facility] [address] [place] [address], [facility] Sodium [Moles/Vol] 139 mmol/L Normal 136-145 [facility] Comment on above: Order Comment: No: D o not add to previous draw Performed By: #### 4 4396, 42218, 51780, 47618, 65540, 74550 #### [facility] [address] [place] [address], [facility] Urea nitrogen [Mass/Vol] 9 mg/dL Normal 7-25 [facility] Comment on above: Order Comment: No: D o not add to previous draw Performed By: #### 4 4396, 02203, 19157, 95876, 39543, 55784 #### [facility] [address] [place] [address], [facility] FREE T3on 09-29-2019 Free T3 [Mass/Vol] 4.2 pg/mL High 2.5-3.9 [facility] Comment on above: Order Comment: No: D o not add to previous draw Performed By: #### 4 4396, [id number], 39063, 31909, 56860, 02996 #### [facility] [address] [place] [address], [place] FREE T4on 09-29-2019 Free T4 [Mass/Vol] 0.82 ng/dL Normal 0.71-1.85 [facility] Comment on above: Order Comment: No: D o not add to previous draw Performed By: #### 4 [id number], 57129, 32978, 28858, 75497, 47789 #### [facility] [address] [place] [address], [facility] LIPID PROFILEon 09-29-2019 Cholesterol [Mass/Vol] 153 mg/dL Normal 120-170 [facility] Comment on above: Order Comment: No: D o not add to previous draw Result Comment: CHOL ESTEROL REFERENCE RANGE: 20 YEARS AND OLDER CARDIOVASCULAR RISK Less than 200 mg/dl Low Risk 200 to 239 mg/dl Borderline Risk 240 mg/dl and greater High Risk Performed By: #### 4 [id number], 89174, 82001, 04413, 85792, 91391 #### [facility] [address] [place] [address], [facility] Cholesterol in HDL [Mass/Vol] 56 mg/dL Normal 23-92 [facility] Comment on above: Order Comment: No: D o not add to previous draw Result Comment: Slig ht variation in normal range could be due to gender and/or age. HDL CHOLESTEROL REFERENCE RANGE: 20 years and older Cardiovascular Risk > or =60 mg/dL Desirable 40 TO 59 mg/dL Low Risk <40 mg/dL High Risk Performed By: #### 4 [id number], 75177, 58507, 87212, 58180, 37778 #### [facility] [address] [place] [address], [facility] Cholesterol in LDL [Mass/Vol] 74 mg/dL Normal 0-130 [facility] Comment on above: Order Comment: No: D o not add to previous draw Result Comment: LDL IS A CALCULATION LDL IS ONLY VALID IF THE TRIG IS LESS THAN 400. Performed By: #### 4 [id number], 68625, 01946, 17161, 64719, 16281 #### [facility] [address] [place] [address], [facility] Cholesterol.total/Cho lesterol in HDL [Mass ratio] 2.7 {ratio} Normal 0.0-4.5 [facility] Comment on above: Order Comment: No: D o not add to previous draw Performed By: #### 4 [id number], 13644, 75032, 52076, 34721, 84594 #### [facility] [address] NON-HDL CHOLESTEROL 97 mg/dL Normal [facility] Comment on above: Order Comment: No: D o not add to previous draw Performed By: #### 4 [id number], 60357, 31066, 36175, 03219, 65926 #### [facility] [address] [place], [place] [id number] [place] [address] Triglyceride [Mass/Vol] 114 mg/dL Normal 37-148 [facility] Comment on above: Order Comment: No: D o not add to previous draw Result Comment: TRIG LYCERIDE REFERENCE RANGE: 20 YEARS AND OLDER CARDIOVASCULAR RISK LESS THAN 150 mg/dl LOW RISK 150 TO 199 mg/dl BORDERLINE RISK 200 mg/dl AND GREATER HIGH RISK Performed By: #### 4 [id number], 44208, 85251, 76056, 87299, 50853 #### [facility] [address] VLDL CHOL 23 mg/dL Normal 0-40 [facility] Comment on above: Order Comment: No: D o not add to previous draw Performed By: #### 4 [id number], 77336, 04392, 01907, 28095, 35857 #### [facility] [address] [place] [address], [facility] SERUM TESTon 09-28 TEST Negative Normal [facility] Comment on above: Order Comment: No: D o not add to previous draw Performed By: #### 4 [id number] #### [facility] [address] [place] [address], [facility] TSH3on 09-29-2019 TSH 3RD GENERATION 1.24 uIU/mL Normal 0.34-5.60 [facility] Comment on above: Order Comment: No: D o not add to previous draw Performed By: #### 4 [id number], 18446, 58259, 87882, 70523, 37417 #### [facility] [address] [place] [address], [facility] VITAMIN D 25-HYDROXYon 09-28 VITAMIN D 25-OH 42.5 ng/mL Normal 30.0-80.0 [facility] Comment on above: Result Comment: >80. 0 Toxicity possible Performed By: #### 4 [id number], 72301, 17497, 81122, 49495, 12212 #### [facility] [address] [place] [address], [facility] Urine Drug Screenon 09-28-19 20 Amphetamine Screen, [...] [place], [place] Tricyclic Antidepressants, Urine Negative NEGATIVE [facility] [place] Comment on above: (Positive cutoff 300 ng/mL) Drug screen results are to be used for medical purposes only. All positive results are unconfirmed. Testing for employment or legal uses should be sent to a reference laboratory for confirmation. Acetaminophen Levelon 2019 Acetaminophen [Mass/Vol] <5 Low 10 - 30 ug/mL [place] Interpretation and review of laboratory results Abnormal [place] Basic Metabolic Panelon 09-06 Anion gap [Moles/Vol] 15 mmol/L 9 - 17 mmol/L [place] Bun/Cre Ratio 13 [place] Calcium [Mass/Vol] 10.5 mg/dL High 8.4 - 10. 2 mg/dL [place] Chloride [Moles/Vol] 98 mmol/L 98 - 10 7 mmol/L [place] CO2 [Moles/Vol] 23 mmol/L 20 - 31 mmol/L [place] Creatinine [Mass/Vol] 0.61 mg/dL 0.5 - 0.9 mg/dL [place] GFR NOT REPORTED >60 mL/min [place] GFR Non- Pediatric GFR requires additional information. Refer to NKDEP website for calculator. >60 mL/min [place] GFR/1.73 sq M predicted among non-blacks MDRD (S/P/Bld) [Vol rate/Area] NOT REPORTED [place] GFR/1.73 sq M predicted among non-blacks MDRD (S/P/Bld) [Vol rate/Area] [place] Comment on above: Average GFR for <20 years old not available. Chronic Kidney Disease: <60 mL/min/1.73sq m Kidney failure: <15 mL/min/1.73sq m eGFR calculated using average adult body mass. Additional eGFR calculator available at: http://www.Autopilot/multiple_crcl_2012.htm Glucose [Mass/Vol] 106 mg/dL High 60 - 100 mg/dL [place] Potassium [Moles/Vol] 3.9 mmol/L 3.6 - 4.9 mmol/L [place] Sodium [Moles/Vol] 136 mmol/L 135 - 144 mmol/L [place] Urea nitrogen [Mass/Vol] 8 mg/dL 5 - 18 mg/dL [place] CBC Auto Differentialon 09-06-2019 Basophils (Bld) [#/Vol] 0.00 10*3/uL [place] Basophils/100 WBC (Bld) 0 % 0 - 2 % [place] Differential Type YES [facility] [place] Eosinophils (Bld) [#/Vol] 0.10 10*3/uL [place] Eosinophils/100 WBC (Bld) 1 % 0 - 5 % [place] Erythrocyte distribution width (RBC) [Ratio] 14.8 % 12.1 - 15.2 % [place] Hematocrit (Bld) [Volume fraction] 40.2 % 36 - 46 % [place] Hemoglobin (Bld) [Mass/Vol] 13.8 g/dL 12 - 16 g/dL [place] Lymphocytes (Bld) [#/Vol] 1.90 10*3/uL [place] Lymphocytes/100 WBC (Bld) 21 % 14 - 41 % [place] MCH (RBC) [Entitic mass] 28.4 pg 25 - 35 pg [place] MCHC (RBC) [Mass/Vol] 34.2 g/dL 31 - 37 g/dL [place] MCV (RBC) [Entitic vol] 83.1 fL 78 - 102 fL [place] Monocytes (Bld) [#/Vol] 0.70 10*3/uL [place] Monocytes/100 WBC (Bld) 7 % 4 - 8 % [place] Platelet mean volume (Bld) [Entitic vol] NOT REPORTED 6 - 12 fL [place], [place] Platelets (Bld) [#/Vol] 238 10*3/uL [place] Platelets (Bld) [#/Vol] NOT REPORTED [place] RBC (Bld) [#/Vol] 4.84 10*6/uL 4 - 5.2 m/uL [place] RBC morphology finding Nom (Bld) NOT REPORTED [place] Segmented neutrophils/100 WBC (Bld) 71 % 45 - 76 % [place] Segs Absolute 6.50 [facility] [place] WBC (Bld) [#/Vol] 9.2 10*3/uL [place] WBC (Bld) [#/Vol] NOT REPORTED per 100 WBC [place] WBC Morphology NOT REPORTED [facility] [place] Ethanolon 09-27-2019 Ethanol [Mass/Vol] mg/dL <10 mg/dL [place] Ethanol percent <0.010 % [facility] [place] HCG Qualitative, Serumon hCG Qual Negative NEGATIVE [place] Comment on above: Specimens with hCG l evels near the threshold of the test (25 mIU/mL) may give a negative or indeterminate result. In such cases, another test should be performed with a new specimen in 48-72 hours. If early is suspected clinically in this setting, correlation with quantitative serum b-hCG level is suggested. [employer] has confirmed the use of plasma for this test. This has not been cleared or approved by the U.S. Food and Drug Administration. The FDA has determined that such clearance is not necessary. Otheron 09-27-2019 Interpretation and review of laboratory results Abnormal [place] Immature granulocytes (Bld) [#/Vol] NOT REPORTED 0 % [place] Salicylateon 09-27-2019 Salicylate Lvl <1 Low 3 - 10 mg/dL [place] TSH without Reflexon 020 TSH Qn 0.49 m[IU]/L [place] XR HAND RIGHT (MIN 3 VIEWS)o n 09-27-2019 EXAM: XR HAND RIGHT (MIN 3 VIEWS) HISTORY: Reason for exam:->pain to lateral MCs, punched wall COMPARISON: Right hand, 07/20/2014. TECHNIQUE: AP, oblique and lateral views of the right hand. FINDINGS: No acute or intrinsic osseous, articular or soft tissue abnormality is seen. [place] No acute findings. [place], [place] Incoming Radiant Results From [employer] - 09/27/2019 11:39 PM EDT EXAM: XR HAND RIGHT (MIN 3 VIEWS) HISTORY: Reason for exam:->pain to lateral MCs, punched wall COMPARISON: Right hand, 07/20/2014. TECHNIQUE: AP, oblique and lateral views of the right hand. FINDINGS: No acute or intrinsic osseous, articular or soft tissue abnormality is seen. IMPRESSION: No acute findings. [place] CBC Auto Differentialon 11-0 Basophils (Bld) [#/Vol] 0.00 10*3/uL [place] Basophils/100 WBC (Bld) 1 % 0 - 2 % [place] Differential Type YES [place] Eosinophils (Bld) [#/Vol] 0.00 10*3/uL [place] Eosinophils/100 WBC (Bld) 1 % 0 - 5 % [place] Erythrocyte distribution width (RBC) [Ratio] 14.3 % 12.1 - 15.2 % [place] Hematocrit (Bld) [Volume fraction] 40.7 % 36 - 46 % [place] Hemoglobin (Bld) [Mass/Vol] 13.4 g/dL 12 - 16 g/dL [place] Interpretation and review of laboratory results Abnormal [place] Lymphocytes (Bld) [#/Vol] 1.20 10*3/uL [place] Lymphocytes/100 WBC (Bld) 33 % 14 - 41 % [place] MCH (RBC) [Entitic mass] 27.3 pg 25 - 35 pg [place] MCHC (RBC) [Mass/Vol] 33.0 g/dL 31 - 37 g/dL [place] MCV (RBC) [Entitic vol] 82.8 fL 78 - 102 fL [place] Monocytes (Bld) [#/Vol] 0.40 10*3/uL [place] Monocytes/100 WBC (Bld) 12 % High 4 - 8 % [place] Platelet mean volume (Bld) [Entitic vol] NOT REPORTED 6 - 12 fL [place], [place] Platelets (Bld) [#/Vol] 235 10*3/uL [place] Platelets (Bld) [#/Vol] NOT REPORTED [place] RBC (Bld) [#/Vol] 4.92 10*6/uL 4 - 5.2 m/uL [place] RBC morphology finding Nom (Bld) NOT REPORTED [place] Segmented neutrophils/100 WBC (Bld) 53 % 45 - 76 % [place] Segs Absolute 2.10 [place] WBC (Bld) [#/Vol] 3.8 10*3/uL [place] WBC (Bld) [#/Vol] NOT REPORTED per 100 WBC [place] WBC Morphology NOT REPORTED [place] Comprehensive Metabolic Pane bonita 01-12-2019 Albumin [Mass/Vol] 4.8 g/dL High 3.2 - 4.5 g/dL [place] Albumin/Globulin [Mass ratio] NOT REPORTED [place] ALP [Catalytic activity/Vol] 88 U/L 47 - 119 U/L [place] ALT [Catalytic activity/Vol] 12 U/L 5 - 33 U/L [place] Anion gap [Moles/Vol] 17 mmol/L 9 - 17 mmol/L [place] AST [Catalytic activity/Vol] 24 U/L <32 [place] Bilirubin Ql (U) 0.46 mg/dL 0.3 - 1.2 mg/dL [place] Bun/Cre Ratio 14 [place] Calcium [Mass/Vol] 10.4 mg/dL High 8.4 - 10. 2 mg/dL [place] Chloride [Moles/Vol] 101 mmol/L 98 - 10 7 mmol/L [place] CO2 [Moles/Vol] 22 mmol/L 20 - 31 mmol/L [place] Creatinine [Mass/Vol] 0.65 mg/dL 0.5 - 0.9 mg/dL [place] GFR NOT REPORTED >60 mL/min [place] GFR Non- Pediatric GFR requires additional information. Refer to [facility]DEP website for calculator. >60 mL/min [place] GFR/1.73 sq M predicted among non-blacks MDRD (S/P/Bld) [Vol rate/Area] NOT REPORTED [place] GFR/1.73 sq M predicted among non-blacks MDRD (S/P/Bld) [Vol rate/Area] [place] Comment on above: Average GFR for <20 years old not available. Chronic Kidney Disease: <60 mL/min/1.73sq m Kidney failure: <15 mL/min/1.73sq m eGFR calculated using average adult body mass. Additional eGFR calculator available at: http://www.Autopilot/multiple_crcl_2012.htm Glucose [Mass/Vol] 90 mg/dL 60 - 100 mg/dL [place] Interpretation and review of laboratory results Abnormal [place] Potassium [Moles/Vol] 3.9 mmol/L 3.6 - 4.9 mmol/L [place] Protein [Mass/Vol] 8.7 g/dL High 6 - 8 g/dL [place] Sodium [Moles/Vol] 140 mmol/L 135 - 144 mmol/L [place] Urea nitrogen [Mass/Vol] 9 mg/dL 5 - 18 mg/dL [place] HCG Qualitative, Serumon hCG Qual Negative NEGATIVE [place] Comment on above: Specimens with hCG l evels near the threshold of the test (25 mIU/mL) may give a negative or indeterminate result. In such cases, another test should be performed with a new specimen in 48-72 hours. If early is suspected clinically in this setting, correlation with quantitative serum b-hCG level is suggested. [employer] has confirmed the use of plasma for this test. This has not been cleared or approved by the U.S. Food and Drug Administration. The FDA has determined that such clearance is not necessary. Otheron 01-12-2019 Immature granulocytes (Bld) [#/Vol] NOT REPORTED [facility] HCG QUALITATIVE, URINEon HCG ( test) Ql (U) Negative [facility] Otheron 12-18-2018 Interpretation and review of laboratory results Abnormal [facility] URINALYSIS, MACROon 12-19-19 19 Bilirubin Ql (U) Negative NEGATIVE [facility] Clarity (U) CLEAR CLEAR [facility] Color (U) YELLOW YELLOW [facility] Glucose Test strip (U) [Mass/Vol] Negative NEGATIVE mg/dl [facility] Hemoglobin Ql (U) Negative NEGATIVE [facility] Ketones (U) [Mass/Vol] Negative NEGATIVE mg/dl [facility] Leukocyte esterase Test strip Ql (U) Negative NEGATIVE [facility] Nitrite Ql (U) Negative NEGATIVE [facility] TH pH (U) 7.0 [pH] [facility] Protein Ql (U) TRACE Abnormal NEGATIVE mg/dl [facility] Specific gravity (U) [Rel density] 1.025 [facility] Urobilinogen (U) [Mass/Vol] 0.2 [facility] URINE HCG QUALon 12-18-2018 Beta HCG ( test) Ql (U) Negative Normal [facility] URINE MACROSCOPICon 12-19-19 19 Bilirubin Ql (U) Negative Normal NEGATIVE [facility] Clarity (U) CLEAR Normal CLEAR [facility] Color (U) YELLOW Normal YELLOW [facility] Glucose Ql (U) Negative Normal NEGATIVE [facility] pH (U) 7.0 [pH] Normal 5.0-7.0 [facility] Protein (U) [Mass/Vol] TRACE Abnormal NEGATIVE [facility] URINE HEMOGLOBIN Negative Normal NEGATIVE [facility] URINE KETONE Negative Normal NEGATIVE [facility] URINE LEUKOTEST Negative Normal NEGATIVE [facility] URINE NITRATES Negative Normal NEGATIVE [facility] URINE SPEC GRAVITY 1.025 Normal 1.010-1.025 [facility] Urobilinogen Qn (U) 0.2 {Manuel'U}/dL Normal 0.2-1.0 [facility] URINE MICROSCOPICon 12-19-19 19 Bacteria LM.HPF (Urine sed) [#/Area] TRACE Abnormal NEGATIVE [facility] Casts LM.LPF (Urine sed) [#/Area] NONE Normal NONE [facility] CRYSTAL NONE Normal NONE [facility] Epithelial cells LM.HPF (Urine sed) [#/Area] 10 TO 20 Normal [facility] Mucus Ql (Urine sed) Negative Normal NEGATIVE [facility] RBC (U) [#/Vol] Negative Normal NEGATIVE [facility] URINE COMMENT CULTURE CRITERIA NOT MET, NO CULTURE PERFORMED. Normal [facility] WBC (U) [#/Vol] 1 TO 5 Normal NEGATIVE [facility] Bacteria LM.HPF (Urine sed) [#/Area] TRACE Abnormal NEGATIVE [facility] Casts LM.LPF (Urine sed) [#/Area] NONE NONE /LPF [facility] Crystals LM Nom (Urine sed) NONE NONE [facility] Epithelial cells LM Ql (Urine sed) 10 TO 20 /HPF [facility] Mucus Ql (Urine sed) Negative NEGATIVE [facility] RBC LM.HPF (Urine sed) [#/Area] Negative NEGATIVE /HPF [facility] Urine sediment comments LM Vinnie (Urine sed) CULTURE CRITERIA NOT MET, NO CULTURE PERFORMED. [facility] WBC LM.HPF (Urine sed) [#/Area] 1 TO 5 NEGATIVE /HPF [facility] Strep Screen Group A Throato n 12-16-2018 S. pyogenes Ag IA Ql (Unsp spec) Rapid Strep A negative. A negative Rapid Group A Strep Screen result does not rule out the possibility of Group A Streptococci in the specimen. The [place] [employer] recommends confirmation testing. Therefore, a Group A Strep DNA test will be performed. [place] Special Requests NOT REPORTED [place] Specimen Description .THROAT [place] XR CHEST STANDARD (2 VW)on Negative chest. [place] EXAM: XR CHEST (2 VW) HISTORY: Reason for exam:->cough COMPARISON: None. TECHNIQUE: 2 views chest FINDINGS: Heart size normal. Lungs clear. Bony thorax and upper abdomen normal. [place], [place] Incoming Radiant Results From [facility] - 12/16/2018 5:28 PM EDT EXAM: XR CHEST (2 VW) HISTORY: Reason for exam:->cough COMPARISON: None. TECHNIQUE: 2 views chest FINDINGS: Heart size normal. Lungs clear. Bony thorax and upper abdomen normal. IMPRESSION: Negative chest. [facility] [place], [place] Vital Signs Date Time Vital Sign Value Performing Clinician Shadi ag 04-06-2024 09:13-0500 Body weight 73.66 kg Meir Jamal DO Work Phone: [facility] 04-06-2024 09:13-0500 Diastolic blood pressure 74 mm[Hg] Meir Jamal DO Work Phone: [facility] 04-06-2024 09:13-0500 Systolic blood pressure 120 mm[Hg] Meir Jamal DO Work Phone: [facility] 03-06-2024 10:11-0500 Body weight 72.18 kg Jewell MATTHEWS Work Phone: [facility] 03-06-2024 10:11-0500 Diastolic blood pressure 64 mm[Hg] Jewell MATTHEWS Work Phone: [facility] 03-06-2024 10:11-0500 Systolic blood pressure 110 mm[Hg] Jewell MATTHEWS Work Phone: [facility] 02-21-2024 10:13-0500 Body height 160 cm Doyle Amaro MD Work Phone: [facility] 02-21-2024 10:13-0500 Body mass index (BMI) [Ratio] 28.52 kg/m2 Doyle Amaro MD Work Phone: [facility] 02-21-2024 10:13-0500 Body weight 73.03 kg Doyle Amaro MD Work Phone: [facility] 02-21-2024 10:13-0500 Diastolic blood pressure 70 mm[Hg] Doyle Amaro MD Work Phone: [facility] 02-21-2024 10:13-0500 Systolic blood pressure 105 mm[Hg] Doyle Amaro MD Work Phone: [facility] 02-07-2024 11:12-0500 Body mass index (BMI) [Ratio] 28.63 kg/m2 Malka Allison PHOTOGRAPHER [employer] MARKET[employer]IST Work Phone: [facility] 02-07-2024 11:12-0500 Body weight 73.3 kg Malka Allison PHOTOGRAPHER [employer] MARKETING SPECIALIST Work Phone: [facility] 02-07-2024 11:12-0500 Diastolic blood pressure 60 mm[Hg] Malka Allison PHOTOGRAPHER P[employer]ATE[employer]IC MARKETING SPECIALIST Work Phone: [facility] 02-07-2024 11:12-0500 Systolic blood pressure 108 mm[Hg] Malka Allison PHOTOGRAPHER [employer]STRATE[employer]IC MARKETING SPECIALIST Work Phone: [facility] 01-10-2024 09:44-0500 Body mass index (BMI) [Ratio] 27.56 kg/m2 Nahed Stewart MD Work Phone: [facility] 01-10-2024 09:44-0500 Body weight 70.58 kg Nahed Stewart MD Work Phone: [facility] 01-10-2024 09:44-0500 Diastolic blood pressure 60 mm[Hg] Nahed Stewart MD Work Phone: [facility] 01-10-2024 09:44-0500 Systolic blood pressure 100 mm[Hg] Nahed Stewart MD Work Phone: [facility] 12-13-2023 09:17-0400 Body mass index (BMI) [Ratio] 26.04 kg/m2 Nahed Stewart MD Work Phone: [facility] 12-13-2023 09:17-0400 Body weight 66.68 kg Nahed Stewart MD Work Phone: [facility] 12-13-2023 09:17-0400 Diastolic blood pressure 60 mm[Hg] Nahed Stewart MD Work Phone: [facility] 12-13-2023 09:17-0400 Systolic blood pressure 100 mm[Hg] Nahed Stewart MD Work Phone: [facility] 11-11-2023 13:33-0400 Body mass index (BMI) [Ratio] 24.98 kg/m2 Nahed Stewart MD Work Phone: [facility] 11-11-2023 13:33-0400 Body weight 63.96 kg Nahed Stewart MD Work Phone: [facility] 11-11-2023 13:33-0400 Diastolic blood pressure 56 mm[Hg] Nahed Stewart MD Work Phone: [facility] 11-11-2023 13:33-0400 Systolic blood pressure 112 mm[Hg] Nahed Stewart MD Work Phone: [facility] 10-14-2023 13:27-0400 Body height 160 cm Doyle Amaro MD Work Phone: [facility] 10-14-2023 13:27-0400 Body mass index (BMI) [Ratio] 24.62 kg/m2 Doyle Amaro MD Work Phone: [facility] 10-14-2023 13:27-0400 Body weight 63.05 kg Doyle Amaro MD Work Phone: [facility] 10-14-2023 13:27-0400 Diastolic blood pressure 62 mm[Hg] Doyle Amaro MD Work Phone: [facility] 10-14-2023 13:27-0400 Systolic blood pressure 120 mm[Hg] Doyle Amaro MD Work Phone: [facility] 09-26-2023 19:52-0400 Diastolic blood pressure 86 mm[Hg] Justin Hewitt [facility] 09-26-2023 19:52-0400 Heart rate 96 /min Justin Hewitt [facility] 09-26-2023 19:52-0400 Mean blood pressure 97 mm[Hg] Justin Hewitt [facility] 09-26-2023 19:52-0400 Respiratory rate 23 /min Justni Hewitt [facility] 09-26-2023 19:52-0400 SaO2% (BldA) [Mass fraction] 99 % Justin Kash [facility] 09-26-2023 19:52-0400 Systolic blood pressure 120 mm[Hg] Justin Kash [facility] 09-26-2023 18:46-0400 Diastolic blood pressure 81 mm[Hg] Justin Kash [facility] 09-26-2023 18:46-0400 Heart rate 89 /min Justin Kash [facility] 09-26-2023 18:46-0400 Mean blood pressure 96 mm[Hg] Justin Kash [facility] 09-26-2023 18:46-0400 Respiratory rate 18 /min Justin Kash [facility] 09-26-2023 18:46-0400 SaO2% (BldA) [Mass fraction] 98 % Justin Kash [facility] 09-26-2023 18:46-0400 Systolic blood pressure 126 mm[Hg] Justin Kash [facility] 09-26-2023 18:00-0400 Heart rate 97 /min Justin Kash [facility] 09-26-2023 18:00-0400 Mean blood pressure 94 mm[Hg] Justin Kash [facility] 09-26-2023 18:00-0400 SaO2% (BldA) [Mass fraction] 100 % Justin Kash [facility] 09-26-2023 18:00-0400 Systolic blood pressure 121 mm[Hg] Justin Kash [facility] 09-26-2023 16:57-0400 Body temperature 98.96 [degF] Justin Hewitt [facility] 09-26-2023 16:57-0400 Heart rate 94 /min Justin Hewitt [facility] 09-26-2023 16:57-0400 Respiratory rate 18 /min Justin Hewitt [facility] 09-26-2023 16:42-0400 Body temperature 98.6 [degF] Justin Hewitt [facility] 09-26-2023 16:42-0400 Heart rate 106 /min Justin Hewitt [facility] 09-26-2023 16:42-0400 Respiratory rate 18 /min Justin Hewitt [facility] 09-24-2023 13:28-0400 Body height 160 cm Avg Gurjit Gal [id number] [facility] 09-24-2023 13:28-0400 Body mass index (BMI) [Ratio] 23.91 kg/m2 Avg Gurjit Gal [id number] [facility] 09-24-2023 13:28-0400 Body weight 61.24 kg Avg Gurjit Gal [id number] [facility] 09-24-2023 13:28-0400 Diastolic blood pressure 68 mm[Hg] Avg Gurjit Gal [id number] [facility] 09-24-2023 13:28-0400 Systolic blood pressure 112 mm[Hg] Avg Gurjit Gal [id number] [facility] 09-16-2023 08:37-0400 Body temperature 98.24 [degF] [facility] 09-16-2023 08:37-0400 Diastolic blood pressure 78 mm[Hg] [facility] [place] 09-16-2023 08:37-0400 Heart rate 76 /min [facility] 09-16-2023 08:37-0400 Respiratory rate 18 /min [facility] [place] 09-16-2023 08:37-0400 SaO2% (BldA) [Mass fraction] 100 % [facility] [place] 09-16-2023 08:37-0400 Systolic blood pressure 126 mm[Hg] [facility] [place] 09-13-2023 10:56-0400 Blood Pressure Location Pari Underwood [facility] 09-13-2023 10:56-0400 Body temperature 97.88 [degF] Pari Underwood [facility] 09-13-2023 10:56-0400 Diastolic blood pressure 68 mm[Hg] Pari Underwood [facility] 09-13-2023 10:56-0400 Heart rate 74 /min Pari Underwood [facility] 09-13-2023 10:56-0400 Respiratory rate 18 /min Pari Underwood [facility] 09-13-2023 10:56-0400 SaO2% (BldA) [Mass fraction] 98 % Pari Underwood [facility] 09-13-2023 10:56-0400 Systolic blood pressure 110 mm[Hg] Pari Underwood [facility] 08-13-2023 14:20-0400 Blood Pressure Location Pari Underwood [facility] 08-13-2023 14:20-0400 Body temperature 97.88 [degF] Pari Underwood [facility] 08-13-2023 14:20-0400 Diastolic blood pressure 80 mm[Hg] Paridominick BazziUnderwood [facility] 08-13-2023 14:20-0400 Heart rate 88 /min Pari Bazzizier [facility] 08-13-2023 14:20-0400 Respiratory rate 16 /min Paridominick BazziUnderwood [facility] 08-13-2023 14:20-0400 SaO2% (BldA) [Mass fraction] 99 % Pari Bazzizier [facility] 08-13-2023 14:20-0400 Systolic blood pressure 122 mm[Hg] Pari Underwood [facility] 08-04-2023 14:57-0400 Body mass index (BMI) [Ratio] 22.96 kg/m2 Nahed Stewart MD Work Phone: [facility] 08-04-2023 14:57-0400 Body weight 58.79 kg Nahed Stewart MD Work Phone: [facility] 08-04-2023 14:57-0400 Diastolic blood pressure 62 mm[Hg] Nahed Stewart MD Work Phone: [facility] 08-04-2023 14:57-0400 Systolic blood pressure 120 mm[Hg] Nahed Stewart MD Work Phone: [facility] 04-16-2023 14:16-0500 Body mass index (BMI) [Ratio] 20.87 kg/m2 Nahed Stewart MD Work Phone: [facility] 04-16-2023 14:16-0500 Body weight 53.43 kg Nahed Stewart MD Work Phone: [facility] 04-16-2023 14:16-0500 Diastolic blood pressure 76 mm[Hg] Nahed Stewart MD Work Phone: [facility] 04-16-2023 14:16-0500 Systolic blood pressure 118 mm[Hg] Nahed Stewart MD Work Phone: [facility] 10-23-2022 09:25-0400 Body height 160 cm Nahed Stewart MD Work Phone: [facility] 10-23-2022 09:25-0400 Body mass index (BMI) [Ratio] 21.33 kg/m2 Nahed Stewart MD Work Phone: [facility] 10-23-2022 09:25-0400 Body weight 54.61 kg Nahed Stewart MD Work Phone: [facility] 10-23-2022 09:25-0400 Diastolic blood pressure 68 mm[Hg] Nahed Stewart MD Work Phone: [facility] 10-23-2022 09:25-0400 Systolic blood pressure 100 mm[Hg] Nahed Stewart MD Work Phone: [facility] 09-01-2022 13:16-0400 Body mass index (BMI) [Ratio] 21.36 kg/m2 Nahed Stewart MD Work Phone: [facility] 09-01-2022 13:16-0400 Body weight 54.7 kg Nahed Stewart MD Work Phone: [facility] 09-01-2022 13:16-0400 Diastolic blood pressure 66 mm[Hg] Nahed Stewart MD Work Phone: [facility] 09-01-2022 13:16-0400 Systolic blood pressure 120 mm[Hg] Nahed Stewart MD Work Phone: [facility] 06-08-2022 13:20-0400 Body temperature 98.71 [degF] [facility] 06-08-2022 13:20-0400 Diastolic blood pressure 70 mm[Hg] [facility] 06-08-2022 13:20-0400 Heart rate 82 /min [facility] 06-08-2022 13:20-0400 Respiratory rate 18 /min [facility] 06-08-2022 13:20-0400 SaO2% (BldA) [Mass fraction] 97 % [facility] 06-08-2022 13:20-0400 Systolic blood pressure 117 mm[Hg] [facility] 04-22-2022 09:40-0500 Body mass index (BMI) [Ratio] 21.01 kg/m2 Nahed Stewart MD Work Phone: [facility] 04-22-2022 09:40-0500 Body weight 53.8 kg Nahed Stewart MD Work Phone: [facility] 04-22-2022 09:40-0500 Diastolic blood pressure 62 mm[Hg] Nahed Stewart MD Work Phone: [facility] 04-22-2022 09:40-0500 Systolic blood pressure 110 mm[Hg] Nahed Stewart MD Work Phone: [facility] 03-20-2022 14:35-0500 Body mass index (BMI) [Ratio] 22.21 kg/m2 Nahed Stewart MD Work Phone: [facility] 03-20-2022 14:35-0500 Body weight 56.88 kg Nahed Stewart MD Work Phone: [facility] 03-20-2022 14:35-0500 Diastolic blood pressure 70 mm[Hg] Nahed Stewart MD Work Phone: [facility] 03-20-2022 14:35-0500 Systolic blood pressure 118 mm[Hg] Nahed Stewart MD Work Phone: [facility] 10-24-2021 14:45-0400 Body height 160 cm Nahed Stewart MD Work Phone: [facility] 10-24-2021 14:45-0400 Body mass index (BMI) [Ratio] 23.03 kg/m2 Nahed Stewart MD Work Phone: [facility] 10-24-2021 14:45-0400 Body weight 58.97 kg Nahed Stewart MD Work Phone: [facility] 10-24-2021 14:45-0400 Diastolic blood pressure 62 mm[Hg] Nahed Stewart MD Work Phone: [facility] 10-24-2021 14:45-0400 Systolic blood pressure 120 mm[Hg] Nahed Stewart MD Work Phone: [facility] 08-05-2021 09:20-0400 Body mass index (BMI) [Ratio] 28.09 kg/m2 Nahed Stewart MD Work Phone: [facility] 08-05-2021 09:20-0400 Body weight 71.94 kg Nahed Stewart MD Work Phone: [facility] 08-05-2021 09:20-0400 Diastolic blood pressure 56 mm[Hg] Nahed Stewart MD Work Phone: [facility] 08-05-2021 09:20-0400 Systolic blood pressure 98 mm[Hg] Nahed Stewart MD Work Phone: [facility] 07-28-2021 09:03-0400 Body height 160 cm Doyle Amaro MD Work Phone: [facility] 07-28-2021 09:03-0400 Body mass index (BMI) [Ratio] 27.46 kg/m2 Doyle Amaro MD Work Phone: [facility] 07-28-2021 09:03-0400 Body weight 70.31 kg Doyle Amaro MD Work Phone: [facility] 07-28-2021 09:03-0400 Diastolic blood pressure 64 mm[Hg] Doyle Amaro MD Work Phone: [facility] 07-28-2021 09:03-0400 Systolic blood pressure 140 mm[Hg] Doyle Amaro MD Work Phone: [facility] 07-14-2021 09:00-0400 Body height 160 cm Malka CURTIS Work Phone: [facility] 07-14-2021 09:00-0400 Body mass index (BMI) [Ratio] 26.75 kg/m2 Malka CURTIS Work Phone: [facility] 07-14-2021 09:00-0400 Body weight 68.49 kg Malka Allison PHOTOGRAPHER PORTRAIT[employer]STRATE[employer]IC MARKETING SPECIALIST Work Phone: [facility] 07-14-2021 09:00-0400 Diastolic blood pressure 62 mm[Hg] Malka Allison PHOTOGRAPHER PORTRAIT-STRATEGIC MARKETING SPECIALIST Work Phone: [facility] 07-14-2021 09:00-0400 Systolic blood pressure 106 mm[Hg] Malka Allison PHOTOGRAPHER PORTRAIT-STRATEGIC MARKETING SPECIALIST Work Phone: [facility] 06-30-2021 09:33-0400 Body height 160 cm Doyle Amaro MD Work Phone: [facility] 06-30-2021 09:33-0400 Body mass index (BMI) [Ratio] 26.04 kg/m2 Doyle Amaro MD Work Phone: [facility] 06-30-2021 09:33-0400 Body weight 66.68 kg Doyle Amaro MD Work Phone: [facility] 06-30-2021 09:33-0400 Diastolic blood pressure 64 mm[Hg] Doyle Amaro MD Work Phone: [facility] 06-30-2021 09:33-0400 Systolic blood pressure 102 mm[Hg] Doyle Amaro MD Work Phone: [facility] 06-16-2021 09:08-0400 Body height 160 cm Malkaignacia Allison PHOTOGRAPHER PORTRAIT-STRATEGIC MARKETING SPECIALIST Work Phone: [facility] 06-16-2021 09:08-0400 Body mass index (BMI) [Percentile] Per age and sex 84.17 % Malka Allison PHOTOGRAPHER PORTRAIT[employer]STRATEGIC MARKETING SPECIALIST Work Phone: [facility] 06-16-2021 09:08-0400 Body mass index (BMI) [Ratio] 25.86 kg/m2 Malka Allison PHOTOGRAPHER PORTRAIT-STRATEGIC MARKETING SPECIALIST Work Phone: [facility] 06-16-2021 09:08-0400 Body weight 66.22 kg Malka Allison PHOTOGRAPHER PORTRAIT[employer]STRATEGIC MARKETING SPECIALIST Work Phone: [facility] 06-16-2021 09:08-0400 Diastolic blood pressure 64 mm[Hg] Malka Allison PHOTOGRAPHER PORTRAIT-STRATEGIC MARKETING SPECIALIST Work Phone: [facility] [employer] [facility] 06-16-2021 09:08-0400 Systolic blood pressure 106 mm[Hg] Malka Allison PHOTOGRAPHER PORTRAIT-STRATEGIC MARKETING SPECIALIST Work Phone: [facility] 06-02-2021 09:07-0400 Body mass index (BMI) [Percentile] Per age and sex 79.15 % Nahed Stewart MD Work Phone: [employer] [facility] 06-02-2021 09:07-0400 Body mass index (BMI) [Ratio] 24.8 kg/m2 Nahed Stewart MD Work Phone: [employer] [facility] 06-02-2021 09:07-0400 Body weight 63.5 kg Nahed Stewart MD Work Phone: [employer] [facility] 06-02-2021 09:07-0400 Diastolic blood pressure 56 mm[Hg] Nahed Stewart MD Work Phone: [facility] 06-02-2021 09:07-0400 Systolic blood pressure 100 mm[Hg] Nahed Stewart MD Work Phone: [employer] [facility] 05-13-2021 10:08-0500 Body height 160 cm Malka Allison PHOTOGRAPHER PORTRAIT-STRATEGIC MARKETING SPECIALIST Work Phone: [facility] 05-13-2021 10:08-0500 Body mass index (BMI) [Percentile] Per age and sex 72.35 % Malka Allison PHOTOGRAPHER PORTRAIT-STRATEGIC MARKETING SPECIALIST Work Phone: [facility] 05-13-2021 10:08-0500 Body mass index (BMI) [Ratio] 23.74 kg/m2 Malka Allison PHOTOGRAPHER PORTRAIT-STRATEGIC MARKETING SPECIALIST Work Phone: [facility] 05-13-2021 10:08-0500 Body weight 60.78 kg Malka Allison PHOTOGRAPHER PORTRAIT[employer]STRATEGIC MARKETING SPECIALIST Work Phone: [facility] 05-13-2021 10:08-0500 Diastolic blood pressure 62 mm[Hg] Malka Allison PHOTOGRAPHER PORTRAIT-STRATEGIC MARKETING SPECIALIST Work Phone: [facility] 05-13-2021 10:08-0500 Systolic blood pressure 104 mm[Hg] Malka Allison PHOTOGRAPHER PORTRAIT-STRATEGIC MARKETING SPECIALIST Work Phone: [facility] 04-22-2021 14:24-0500 Body mass index (BMI) [Percentile] Per age and sex 72.49 % Nahed Stewart MD Work Phone: [facility] 04-22-2021 14:24-0500 Body mass index (BMI) [Ratio] 23.74 kg/m2 Nahed Stewart MD Work Phone: [facility] 04-22-2021 14:24-0500 Body weight 60.78 kg Nahed Stewart MD Work Phone: [facility] 04-22-2021 14:24-0500 Diastolic blood pressure 70 mm[Hg] Nahed Stewart MD Work Phone: [facility] 04-22-2021 14:24-0500 Systolic blood pressure 112 mm[Hg] Nahed Stewart MD Work Phone: [facility] 03-13-2021 10:20-0500 Body height 160 cm Doyle Amaro MD Work Phone: [facility] 03-13-2021 10:20-0500 Body mass index (BMI) [Percentile] Per age and sex 59.91 % Doyle Amaro MD Work Phone: [facility] 03-13-2021 10:20-0500 Body mass index (BMI) [Ratio] 22.32 kg/m2 Doyle Amaro MD Work Phone: [facility] 03-13-2021 10:20-0500 Body weight 57.15 kg Doyle Amaro MD Work Phone: [facility] 03-13-2021 10:20-0500 Diastolic blood pressure 76 mm[Hg] Doyle Amaro MD Work Phone: [facility] 03-13-2021 10:20-0500 Systolic blood pressure 122 mm[Hg] Doyle Amaro MD Work Phone: [facility] 02-06-2021 09:17-0500 Body height 160 cm Doyle Amaro MD Work Phone: [facility] 02-06-2021 09:17-0500 Body mass index (BMI) [Percentile] Per age and sex 56.34 % Doyle Amaro MD Work Phone: [facility] 02-06-2021 09:17-0500 Body mass index (BMI) [Ratio] 21.97 kg/m2 Doyle Amaro MD Work Phone: [facility] 02-06-2021 09:17-0500 Body weight 56.25 kg Doyle Amaro MD Work Phone: [facility] 02-06-2021 09:17-0500 Diastolic blood pressure 70 mm[Hg] Doyle Amaro MD Work Phone: [facility] 02-06-2021 09:17-0500 Systolic blood pressure 112 mm[Hg] Doyle Amaro MD Work Phone: [facility] 01-14-2021 09:45-0500 Body height 160 cm Avg Gurjit Gal [id number] [facility] 01-14-2021 09:45-0500 Body mass index (BMI) [Percentile] Per age and sex 60.4 % Avg Gurjit Gal [id number] [facility] 01-14-2021 09:45-0500 Body mass index (BMI) [Ratio] 22.32 kg/m2 Avg Gurjit Gal [id number] [facility] 01-14-2021 09:45-0500 Body weight 57.15 kg Avg Gurjit Gal [id number] [facility] 01-14-2021 09:45-0500 Diastolic blood pressure 72 mm[Hg] Avg Gurjit Gal [id number] [facility] 01-14-2021 09:45-0500 Systolic blood pressure 112 mm[Hg] Avg Gurjit Gal [id number] Nurse [facility] 09-28-2019 08:35-0400 BP Diastolic 68 mm[Hg] [facility] [place] 09-28-2019 08:35-0400 BP Systolic 140 mm[Hg] [facility]uriah [facility] [place] 09-28-2019 08:35-0400 Pulse (Heart Rate) 92 /min [facility]uriah Singh [facility] 09-28-2019 08:35-0400 Pulse Oximetry 99 % [facility] 09-28-2019 08:35-0400 Respiratory Rate 16 /min [facility] 09-28-2019 06:54-0400 Body Temperature 98.29 [degF] [facility] 09-27-2019 22:49-0400 BMI (Body Mass Index) 21.43 kg/m2 [facility] 09-27-2019 22:49-0400 Body weight 54.88 kg [facility] 09-27-2019 22:49-0400 Height 160 cm [facility] 05-19-2019 19:55-0400 BP Diastolic 59 mm[Hg] [facility] 05-19-2019 19:55-0400 BP Systolic 114 mm[Hg] [facility], [place] 05-19-2019 19:55-0400 Pulse (Heart Rate) 66 /min [facility] 05-19-2019 19:55-0400 Pulse Oximetry 100 % [facility] 05-19-2019 19:55-0400 Respiratory Rate 18 /min [facility] 05-19-2019 18:36-0400 BMI (Body Mass Index) 21.97 kg/m2 [facility] 05-19-2019 18:36-0400 Body Temperature 98.29 [degF] [facility] 05-19-2019 18:36-0400 Body weight 56.25 kg Veselin Tanmay [facility] [place] 05-19-2019 18:36-0400 Height 160 cm Veselin Tanmay [facility] [place] 03-08-2019 18:31-0500 Body temperature 98.1 [degF] ePter Petty MD Work Phone: [employer] Work Phone: 03-08-2019 18:31-0500 Body weight 57.15 kg Peter Petty MD Work Phone: [employer] Work Phone: 03-08-2019 18:31-0500 Diastolic blood pressure 90 mm[Hg] Peter Petty MD Work Phone: [employer] Work Phone: 03-08-2019 18:31-0500 Heart rate 86 /min Peter Petty MD Work Phone: [employer] Work Phone: 03-08-2019 18:31-0500 Respiratory rate 20 /min Peter Petty MD Work Phone: [employer] Work Phone: 03-08-2019 18:31-0500 SaO2% (BldA) [Mass fraction] 100 % Peter Petty MD Work Phone: [employer] Work Phone: 03-08-2019 18:31-0500 Systolic blood pressure 139 mm[Hg] Peter Petty MD Work Phone: [employer] Work Phone: 01-12-2019 23:01-0500 Pulse Oximetry 99 % Veselin Tanmay [facility] [place] 01-12-2019 22:49-0500 BP Diastolic 80 mm[Hg] Veselin Tanmay [facility] [place] 01-12-2019 22:49-0500 BP Systolic 107 mm[Hg] Veselin Tanmay [facility] [place] 01-12-2019 22:17-0500 Body Temperature 97.59 [degF] [facility] 01-12-2019 22:17-0500 Body weight 55.[address] [facility] 01-12-2019 22:17-0500 Pulse (Heart Rate) 64 /min [facility] 01-12-2019 22:17-0500 Respiratory Rate 16 /min [facility] 12-18-2018 14:52-0400 [facility] 160 [facility] 12-18-2018 14:47-0400 Body Temperature 99.81 [degF] [facility] 12-18-2018 14:47-0400 BP Diastolic 62 mm[Hg] [facility] 12-18-2018 14:47-0400 BP Systolic 108 mm[Hg] [facility] 12-18-2018 14:47-0400 Pulse (Heart Rate) 82 /min [facility] 12-18-2018 14:47-0400 Pulse Oximetry 96 % [facility] 12-18-2018 14:47-0400 Respiratory Rate 18 /min [facility] 12-16-2018 16:47-0400 BP Diastolic 46 mm[Hg] [facility] , [place] 12-16-2018 16:47-0400 BP Systolic 94 mm[Hg] [facility] [place] 12-16-2018 16:46-0400 Body Temperature 99.19 [degF] [facility], [place] 12-16-2018 16:46-0400 Body weight 55.2 kg [facility] , [place] 12-16-2018 16:46-0400 Pulse (Heart Rate) 84 /min [facility] [place] 12-16-2018 16:46-0400 Pulse Oximetry 100 % [facility] [place] 12-16-2018 16:46-0400 Respiratory Rate 16 /min [facility], [place] Encounters Encounter Date Encounter Type Care Provider Facility Start: 04-06-2024 End: 04-06-2024 Bamboo flowsheet Meir Jamal DO Work Phone: [facility] Start: 04-06-2024 End: 04-06-2024 Bamboo flowsheet Meir Jamal DO Work Phone: [facility] Start: 04-06-2024 End: 04-06-2024 Clinisync Result Encounter Meir Jamal DO Work Phone: [facility] External Department Unsolicited Start: 04-06-2024 End: 04-06-2024 ambulatory MEIR JAMAL Not Available Start: 04-06-2024 End: 04-06-2024 flow sheet Meir Jamal DO Work Phone: [facility] Comment on above: Third trimester preg johann; 37 weeks gestation of ; Nuchal cord, single gestation Start: 03-30-2024 End: 03-30-2024 Bamboo flowsheet Jewell MATTHEWS Work Phone: [facility] Start: 03-30-2024 End: 04-04-2024 Bamboo flowsheet Jewell MATTHEWS Work Phone: [facility] [...] care visit Doyle Amaro MD Work Phone: [facility] PERSONALIZED LIVING ASSISTANT Comment on above: Encounter for superv ision of other normal , third trimester (Primary Dx); 30 weeks gestation of Start: 02-21-2024 ambulatory DOYLE AMARO [facility] Start: 02-18-2024 End: 02-18-2024 Clinisync Result Encounter Meir Jamal DO Work Phone: [facility] Unsolicited Start: 02-18-2024 End: 02-18-2024 Clinisync Result Encounter Meir Jamal DO Work Phone: [facility] Unsolicited Start: 02-07-2024 End: 02-07-2024 Subsequent care visit Malka CURTIS Work Phone: [facility] PERSONALIZED LIVING ASSISTANT Comment on above: Encounter for superv ision of other normal , third trimester (Primary Dx); 28 weeks gestation of Start: 02-07-2024 [facility] Start: 01-25-2024 End: 01-25-2024 ambulatory [employer] LOGIST[employer] MANAGERMarques Fuentes Facility:[facility] Start: 01-24-2024 ambulatory Justinminh Hewitt Facility:F [facility] Start: 01-10-2024 End: 01-10-2024 Subsequent care visit Nahed Stewart MD Work Phone: [facility] PERSONALIZED LIVING ASSISTANT Comment on above: Encounter for superv ision of other normal , second trimester (Primary Dx) Start: 01-10-2024 [facility] Start: 12-13-2023 End: 12-13-2023 Subsequent care visit Nahed Stewart MD Work Phone: [facility] PERSONALIZED LIVING ASSISTANT Comment on above: Encounter for superv ision of other normal in second trimester (Primary Dx) Start: 12-13-2023 [facility] Start: 12-13-2023 End: 12-13-2023 Subsequent hospital visit by physician Nahed Stewart MD Work Phone: [facility] Start: 11-11-2023 End: 11-11-2023 Subsequent care visit Nahed Stewart MD Work Phone: [facility] PERSONALIZED LIVING ASSISTANT Comment on above: Encounter for superv ision of other normal in first trimester (Primary Dx); 16 weeks gestation of Start: 11-11-2023 End: 11-11-2023 Subsequent hospital visit by physician Doyle Amaro MD Work Phone: [facility] Start: 11-11-2023 community hospital NAHED STEWART [facility] Start: 10-14-2023 End: 10-14-2023 Subsequent care visit Doyle Amaro MD Work Phone: [facility] PERSONALIZED LIVING ASSISTANT Comment on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 DATE CREATED AUTHOR AUTHOR'S ORGANIZ ATION 01/31/2024 [facility] DATE CREATED AUTHOR AUTHOR'S ORGANIZ ATION 02/23/2024 [facility] DATE CREATED AUTHOR AUTHOR'S ORGANIZ ATION 04/08/2024 [facility] d[facility] Specialists EPIC Care Teams (unrecognized sec tion and content) Continuity Manager Relationship Specialty Start Date End Date Kelli Amaya MD PCP - General Family Medicine 05/28/17 Continuity Manager Relationship Specialty Start Date End Date Kelli Amaya MD PCP - General Family Medicine 05/28/17 Continuity Manager Relationship Specialty Start Date End Date Kelli Amaya MD PCP - General Family Medicine 05/28/17 Continuity Manager Relationship Specialty Start Date End Date Kelli Amaya MD PCP - General Family Medicine 05/28/17 Continuity Manager Relationship Specialty Start Date End Date Kelli Amaya MD PCP - General Family Medicine 05/28/17 Continuity Manager Relationship Specialty Start Date End Date Kelli Amaya MD PCP - [facility] 05/28/17 Continuity Manager Relationship Specialty Start Date End Date Kelli Amaya MD PCP - [facility] 05/28/17 Continuity Manager Relationship Specialty Start Date End Date Kelli Amaya MD PCP [facility] 05/28/17 Continuity Manager Relationship Specialty Start Date End Date Kelli Amaya MD PCP [facility] 05/28/17 Continuity Manager Relationship Specialty Start Date End Date Kelli Amaya MD [facility] 05/28/17 FOR RECORDS PERTAINING TO PATIENTS WHO [...] BE BASED ON THE PRIMARY CLINICAL RECORDS. [employer] [facility]. provides no warranty or guarantee of the accuracy or completeness of information in this document.
[2024-04-10 20:10] VITALS: TEMP 36.7
[2024-04-10 20:12] VITALS: BP 115/76; PULSE 88
== END 2024-04-10 20:50 | disposition home or self-care (01) ==
LOC: FBCO 20:01 → FBC 20:07
PROVIDERS: Visit Provider Obstetrics & Gynecology
DX: O26.893 Other specified pregnancy related conditions, third trimester (principal); Z3A.37 37 weeks gestation of pregnancy
CPT/HCPCS: 59025

== ENCOUNTER 2024-04-13 20:11 | Outpatient (OUT) | payer MEDICAID, SELFPAY ==
--- OUTSIDE RECORDS SUMMARY | 2024-04-13 01:01 | XMS_ITS | CCD ---
Author Organization [facility] Care Team Providers Care Personal Lines Account Manager Name Role Phone Kelli Amaya Primary Care Provider [phone] Kelli Amaya Primary Care Provider [phone] Kelli Amaya Primary Care Provider [phone] Unavailable Primary Care Provider Kelli Moreno MD [...] Kelli Amaya MD Primary Care Provider [phone] Kelli Amaya MD Primary Care Provider Pari Underwood Primary Care Physician PARI UNDERWOOD Primary Care Unavailable GAYLE ALLISON Attending Unavailable Pari Underwood Attending Unavailable Pari Underwood Attending Unavailable Adam, Astrit H Attending Unavailable Pari Underwood Attending Unavailable Justin Hewitt Attending Unavailable Adam, Astrit H Attending Unavailable Justin Hewitt Attending Unavailable Gina, APPLIANCE SERVICE TECHNICIAN Kalani L Attending Unavailable Unavailable Primary Care [...] Medication Allergies] Propensity to adverse reactions (disorder) [facility] Medications Current Medications Medication Drug [...] thereafter., # 45 tab(s), Refills(s) 0, Pharmacy: [facility] #[id number], 160, cm, 08/13/23 14:37:00 EDT, Height/Length Dosing, [...] OB BPP W NON-STRESS on 04-06-[address] [address] Ultrasound Report Signed Patient: KATHRIN SANTANA MR#: [id number] : 2000 Acct:[id number] Age/Sex: 23 / F ADM Date: 04/06/24 Loc: [facility] 255-[address]: Meir Berry D.O. Ordering Physician: Meir Berry D.O. Date of Service: 04/06/24 Procedure(s): US OB BPP w non-stress Accession Number(s): [id number] cc: Meir Berry D.O.; Physician,Non-Staff [place] [facility] [place] [address] Patient Name: KATHRIN SANTANA MRN: [facility]:[id number] date: 2000 Sex: F Assigned Patient Location: [facility] Current Patient Location: [facility] Accession/Order Number: [id number] Exam Date: 04/06/2024 10:15 Report Date: 04/06/2024 [...] Signed By: 04/06/24 1047 DD/ 1044 TD/TT: Refractory Grinder Operator: [facility] Radiology, Radiologist, MD - 04/06/2024 [place] [employer] [address] Ultrasound Report Signed Patient: KATHRIN SANTANA MR#: [id number] : 2000 Acct:[id number] Age/Sex: 23 / F ADM Date: 04/06/24 Loc: [facility] 255-[address]: Meir Berry D.O. Ordering Physician: Meir Berry D.O. Date of Service: 04/06/24 Procedure(s): US OB BPP w non-stress Accession Number(s): [id number] cc: Meir Berry D.O.; Physician,Non-Staff [place]William [place] [address] Patient Name: KATHRIN SANTANA MRN: [facility]:[id number] date: 2000 Sex: F Assigned Patient Location: [facility] Current Patient Location: [facility] Accession/Order Number: [id number] Exam Date: 04/06/2024 10:15 Report Date: 04/06/2024 [...] Signed By: 04/06/24 1047 DD/ 1044 TD/TT: Refractory Grinder Operator: [facility] Radiology Study observation (narrative) [facility] US OB BPP W NON-STRESS Ordered By: Radiologist Radiology on 04-06-2024 [facility] Work Phone: Urinalysis macro (dipstick) panel (U)on 04-06-2024 Bilirubin, UA Negative Negative - 4(70) +++ mg/dL [facility] Blood, UA Negative Negative - 50 Zackery/mcL [facility] Clarity, UA Clear [facility] Color, UA Yellow [facility] Glucose, UA Negative Negative - 1999(110) ++++ mg/dL [facility] Interpretation and review of laboratory results Normal [facility] Ketones, UA Negative Negative - 160(16) ++++ mg/dL [facility] Leukocytes, UA Negative Negative - 500+++ Katelyn/mcL [facility] Nitrite, UA Negative Negative - Positive [facility] pH, UA 7 5 - 9 [facility] Protein, UA Negative Negative - 1999(20) ++++ mg/dL [facility] Spec Grav, UA 1.02 1 - 1.03 [facility] Urobilinogen, UA 0.2 0.2 - 12 mg/dL [facility] ALL MISCELLANEOUS TESTon MISCELLANEOUS TEST COMMENT . [facility] Comment on above: Test Ordered: [id number] Strep Gp B Culture+Rflx Strep Gp B Culture+Rflx Negative CB Reference Range: Negative Centers for Disease Control and Prevention (CDC) and [place] [employer] and Gynecologists (ACOG) guidelines [...] to clindamycin is noted. Performed at: - [facility] [id number] Human Resources Vice President: Brenton Montiel PhD, Phone: [phone] GROUP B STREP [id number] Group B Streptococcus Colonization Detection Culture With Re [facility] Urinalysis macro (dipstick) panel (U)on 03-06-2024 Bilirubin, UA Negative Negative - 4(70) +++ mg/dL [facility] Blood, UA Negative Negative - 50 Zackery/mcL [facility] Clarity, UA Clear [facility] Color, UA Yellow [facility] Glucose, UA Negative Negative - 1999(110) ++++ mg/dL [facility] Interpretation and review of laboratory results Normal [facility] Ketones, UA Negative Negative - 160(16) ++++ mg/dL [facility] Leukocytes, UA Negative Negative - 500+++ Katelyn/mcL [facility] Nitrite, UA Negative Negative - Positive [facility] pH, UA 7 5 - 9 [facility] Protein, UA Negative Negative - 1999(20) ++++ mg/dL [facility] Spec Grav, UA 1.015 1 - 1.03 [facility] Urobilinogen, UA 0.2 0.2 - 12 mg/dL [facility] ALL CBC WITH AUTO DIFFon BASOPHILS ABSOLUTE AUTO 0 [facility] Basophils/100 WBC (Bld) 0.5 % 0.2 - 2.0 % [facility] Eosinophils/100 WBC (Bld) 1 % 0.9 - 7.0 % [facility] Erythrocyte distribution width (RBC) [Ratio] 13.4 % 11.0 - 15.0 % [facility] Hematocrit (Bld) [Volume fraction] 29.5 % Low 36.0 - 48.0 % [facility] Hemoglobin (Bld) [Mass/Vol] 9.5 g/dL Low 12.0 - 16.0 g/dL [facility] IMMATURE GRANULOCYTES ABS AUTO 0.08 High [facility] Immature granulocytes/100 WBC (Bld) 1.9 % High 0.0 - 0.5 % [facility] Interpretation and review of laboratory results Abnormal [facility] LYMPHOCYTES ABSOLUTE AUTO 0.9 Low [facility] Lymphocytes/100 WBC (Bld) 21.7 % 20.5 - 60.0 % [facility] MCH (RBC) [Entitic mass] 27.1 pg 26.7 - 34.0 pg [facility] MCHC (RBC) [Mass/Vol] 32.2 g/dL 29.9 - 35.2 g/dL [facility] MCV (RBC) [Entitic vol] 84 fL 81.0 - 99.0 fL [facility] MONOCYTES ABSOLUTE AUTO 0.4 [facility] Monocytes/100 WBC (Bld) 9.3 % 1.7 - 12.0 % [facility] NEUTROPHILS ABSOLUTE AUTO 2.8 [facility] Neutrophils/100 WBC (Bld) 65.6 % 43.0 - 75.0 % [facility] Platelet mean volume (Bld) [Entitic vol] 9.2 fL Low 9.5 - 13.[address] [facility] EO # 0 [facility] PLT 184 [facility] RBC 3.[address] [facility] WBC 4.2 [facility] INFLUENZA A AND B AGon 1 04-29-2023 INFLUENZA VIRUS A ANTIGEN Negative [facility] Comment on above: Negative for Flu A p rotein antigen. Infection due to Flu A cannot be ruled out. Flu A antigen in the sample may be below the detection limit of the test. INFLUENZA VIRUS B ANTIGEN Negative [facility] Comment on above: Negative for Flu B p rotein antigen. Infection due to Flu B cannot be ruled out. Flu B antigen in the sample may be below the detection limit of the test. [facility] UA (CLEAN/CATCH) SEO EXPERT/JEFFREY RO IF IND.on 02-26-2024 BILIRUBIN URINE SMALL Abnormal NEGATIVE [facility] BLOOD URINE SMALL Abnormal NEGATIVE [facility] Clarity (U) CLEAR CLEAR [facility] Color (U) LT. YELLOW YELLOW [facility] GLUCOSE URINE UA Negative NEGATIVE mg/dL [facility] Interpretation and review of laboratory results Abnormal [facility] Ketones Ql (U) >=80 Abnormal NEGATIVE mg/dL [facility] Leukocyte esterase Test strip Ql (U) Negative NEGATIVE [facility] NITRITE URINE Negative NEGATIVE [facility] pH (U) 6.0 [pH] 5.0 - 9.0 [facility] Protein (U) [Mass/Vol] 100 mg/dL Abnormal NEG/TRACE [facility] SPECIFIC GRAVITY URINE >=1.030 Abnormal 1.005 - 1.025 [facility] URINE MICROSCOPIC INDICATED YES [facility] UROBILINOGEN URINE 0.2 EU/dL 0.2 - 1.0 EU/dL [facility] UA (CLEAN/CATCH) SEO EXPERT/JEFFREY RO IF IND.on 02-18-2024 BILIRUBIN URINE Negative NEGATIVE [facility] BLOOD URINE Negative NEGATIVE [facility] Clarity (U) CLEAR CLEAR [facility] Color (U) LT. YELLOW YELLOW [facility] GLUCOSE URINE UA Negative NEGATIVE mg/dL [facility] Ketones Ql (U) Negative NEGATIVE mg/dL [facility] Leukocyte esterase Test strip Ql (U) Negative NEGATIVE [facility] NITRITE URINE Negative NEGATIVE [facility] pH (U) 7.5 [pH] 5.0 - 9.0 [facility] PROTEIN URINE Negative NEG/TRACE mg/dL [facility] SPECIFIC GRAVITY URINE 1.015 1.005 - 1.025 [facility] URINE MICROSCOPIC INDICATED NO [facility] UROBILINOGEN URINE 0.2 EU/dL 0.2 - 1.0 EU/dL [facility] RPRon 02-08-2024 Reagin Ab RPR Ql (S) Non-Reactive Normal NONREACTIVE A [facility] Comment on above: Result Comment: Test ing performed at [place] [address] Performed By: #### C TNG #### [place] [address] CBCon 02-07-2024 ABSOLUTE BAS 0.0 10*3/uL Normal 0.0-0.2 [facility] Comment on above: Result Comment: Test ing performed at [place] [address] Performed By: #### C TNG #### [place] [address] ABSOLUTE EOS 0.2 10*3/uL Normal 0.0-0.7 [facility] Comment on above: Performed By: #### C TNG #### [place] [address] ABSOLUTE NEUTROPHIL COUNT 8.6 10*3/uL High 1.4-6.5 [facility] Comment on above: Performed By: #### C TNG #### [place] [address] Basophils/100 WBC (Bld) 0.4 % Normal 0.0-2.0 [facility] Comment on above: Performed By: #### C TNG #### [place] [address] DTYPE AUTO DIFF Normal [facility] Comment on above: Performed By: #### C TNG #### [place] [address] Eosinophils/100 WBC (Bld) 2.0 % Normal 0.0-11.0 [facility] Comment on above: Performed By: #### C TNG #### Testing performed at [address] [address] Lymphocytes (Bld) [#/Vol] 1.4 10*3/uL Normal 1.2-3.4 [facility] Comment on above: Performed By: #### C TNG #### Testing performed at [address] [address] Lymphocytes/100 WBC (Bld) 12.9 % Low 20.0-55.0 [facility] Comment on above: Performed By: #### C TNG #### Testing performed at [address] [address] Monocytes (Bld) [#/Vol] 0.8 10*3/uL High 0.0-0.7 [facility] Comment on above: Performed By: #### C TNG #### Testing performed at [address] [address] Monocytes/100 WBC (Bld) 7.5 % Normal 0.0-10.0 [facility] Comment on above: Performed By: #### C TNG #### Testing performed at [address] [address] Neutrophils/100 WBC (Bld) 77.2 % High 37.0-75.0 [facility] Comment on above: Performed By: #### C TNG #### Testing performed at [address] [address] Erythrocyte distribution width (RBC) [Ratio] 14.1 % Normal 11.5-14.5 [facility] Comment on above: Performed By: #### C TNG #### Testing performed at [address] [address] Hematocrit (Bld) [Volume fraction] 35.9 % Low 36.0-48.0 [facility] Comment on above: Performed By: #### C TNG #### Testing performed at [address] [place] [address] Hemoglobin (Bld) [Mass/Vol] 11.6 g/dL Low 12.0-16.0 [facility] Comment on above: Performed By: #### C TNG #### Testing performed at [address] [address] MCH (RBC) [Entitic mass] 28.1 pg Normal 26.0-35.0 [facility] Comment on above: Performed By: #### C TNG #### Testing performed at [address] [address] MCHC (RBC) [Mass/Vol] 32.3 g/dL Normal 27.0-37.0 [facility] Comment on above: Performed By: #### C TNG #### Testing performed at [address] [address] MCV (RBC) [Entitic vol] 87.1 fL Normal 80.0-100.0 [facility] Comment on above: Performed By: #### C TNG #### Testing performed at [address] [address] Platelet mean volume (Bld) [Entitic vol] 8.5 fL Normal 7.4-11.0 [facility] Comment on above: Performed By: #### C TNG #### Testing performed at [address] [address] Platelets (Bld) [#/Vol] 246 10*3/uL Normal 130-400 [facility] Comment on above: Performed By: #### C TNG #### Testing performed at [address] [address] RBC (Bld) [#/Vol] 4.12 10*6/uL Normal 4.0-5.4 [facility] Comment on above: Performed By: #### C TNG #### Testing performed at [address] [address] WBC (Bld) [#/Vol] 11.1 10*3/uL High 3.6-11.0 [facility] Comment on above: Performed By: #### C TNG #### Testing performed at [address] [address] CBC, EDIF, PLATELETon 2023 ABSOLUTE BASOPHIL COUNT 0.0 10*3/uL 0.0 - 0.2 10*3/uL [facility] Comment on above: Testing performed at [place], [place] [address] Basophils/100 WBC (Bld) 0.4 % 0.0 - 2.0 % [facility] Differential cell count method Nom (Bld) AUTO DIFF % [facility] Eosinophils (Bld) [#/Vol] 0.2 10*3/uL 0.0 - 0.7 10*3/uL [facility] Eosinophils/100 WBC (Bld) 2.0 % 0.0 - 11.0 % [facility] Erythrocyte distribution width (RBC) [Ratio] 14.1 % 11.5 - 14.5 % [facility] Hematocrit (Bld) [Volume fraction] 35.9 % Low 36.0 - 48.0 % [facility] Hemoglobin (Bld) [Mass/Vol] 11.6 g/dL Low [facility] Interpretation and review of laboratory results Abnormal [facility] Lymphocytes (Bld) [#/Vol] 1.4 10*3/uL 1.2 - 3.4 10*3/uL [facility] Lymphocytes/100 WBC (Bld) 12.9 % Low 20.0 - 55.0 % [facility] MCH (RBC) [Entitic mass] 28.1 pg 26.0 - 35.0 PG [facility] MCHC (RBC) [Mass/Vol] 32.3 g/dL [facility] MCV (RBC) [Entitic vol] 87.1 fL [facility] Monocytes (Bld) [#/Vol] 0.8 10*3/uL High 0.0 - 0.7 10*3/uL [facility] Monocytes/100 WBC (Bld) 7.5 % 0.0 - 10.0 % [facility] Neutrophils (Bld) [#/Vol] 8.6 10*3/uL High 1.4 - 6.5 10*3/uL [facility] Neutrophils/100 WBC (Bld) 77.2 % High 37.0 - 75.0 % [facility] Platelet mean volume (Bld) [Entitic vol] 8.5 fL [facility] Platelets (Bld) [#/Vol] 246 10*3/uL 130 - 400 10*3/uL [facility] RBC (Bld) [#/Vol] 4.12 10*6/uL 4.0 - 5.4 10*6/uL [facility] WBC (Bld) [#/Vol] 11.1 10*3/uL High 3.6 - 11.0 10*3/uL [facility] GLUCOSE POST LOADINGon 02-06 Glucose 1 Hr post 50 g glucose PO [Mass/Vol] 70 mg/dL [facility] Comment on above: Testing performed at [address] GLUCOSE POST LOADING 70 MG/DL Normal 65-140 [facility] Comment on above: Result Comment: Test ing performed at [place] [address] Performed By: #### C TNG #### [place] [address] Family Medicine Office/Clini c Noteon 01-25-2024 Family [...] Ordered: New Preventive 18 to 39 years [address] 2. Non-smoker (Z78.9: Other specified health status) continue not smoking Ordered: New Preventive 18 to 39 years [address] 3. BMI 27.0-27.9,adult (Z68.27: Body mass index [BMI] 27.0-27.9, adult) Pt is 27 weeks Ordered: New Preventive 18 to 39 years [address] 4. Overweight (BMI 25.0-29.9) (E66.3: Overweight) see above Ordered: New Preventive 18 to 39 years [address] Follow-up No qualifying data available Problem List/Past [...] diphtheria/pertussis , acel/tetanus adult 06/02/2021 Recorded Normal [facility] Comment on above: Result Comment: Elec tronically Signed By: Kalani Calvo\Date and Time Signed: 01/25/24 10:29 EST AFP TETRAon 11-14-2023 AFP MOM 1.01 [facility] AFP VALUE 36.1 [facility] Comment on above: Result Comment: Unit : ng/mL COMMENT: Comment [facility] Comment on above: Result Comment: (NOT E) Lorie Nieto, Ph.D., [facility] Director References: Available Upon Request. Multiples Of Median Cutoffs Abbreviation Definitions For AFP Elevations IDD- Insulin Dep Diabetes [place] 2.5 Black 2.8 OSBR- Open Spina Bifida IDD 2.0 Twins 4.5 Risk DSR Cutoff 1:270 DSR- Down Syndrome Risk T18 Cutoff 1:100 T18- Trisomy 18 For further inquiries contact [facility] at [phone]. This test was developed and its performance characteristics determined by [facility]. It has not been cleared or approved by the Food and Drug Administration. PERFORMED AT [facility] RTP MIGUEL ANGEL MOM 0.69 [facility] MIGUEL ANGEL VALUE 117.78 [facility] Comment on above: Result Comment: Unit : pg/mL DSR (2ND TRIM.) 1 [place] [address] [facility] DSR (BY AGE) 1 [place] 1133 [facility] GEST AGE BASED ON COLLECTION DATE 16.3 [facility] Comment on above: Result Comment: Unit : WEEKS CORRECTED ON 11/13 AT 0106: PREVIOUSLY REPORTED 16.2 UNIT:WEEKS GEST. AGE BASED ON SEBASTIAN [facility] Comment on above: Result Comment: 04/08 CORRECTED ON 11/13 AT 0106: PREVIOUSLY REPORTED SEBASTIAN ULTRASOUND HCG MOM 0.80 [facility] HCG VALUE [address] [facility] Comment on above: Result Comment: Unit : mIU/mL INSULIN DEP DIABETES Comment [facility] Comment on above: Result Comment: Not provided. CORRECTED ON 11/13 AT 0106: PREVIOUSLY REPORTED NO INTERPRETATION Comment [facility] Comment on above: Result Comment: (NOT [...] identifies 60% of Trisomy 18 pregnancies. The [place] [employer] recommends amniocentesis be offered to women age 35 and older. Recalculations are not recommended when gestational dating by LMP and ultrasound are within 10 days. MATERNAL AGE AT SEBASTIAN 21.8 [facility] Comment on above: Result Comment: Unit : yr CORRECTED ON 11/13 AT 0106: PREVIOUSLY REPORTED 23 UNIT:YR MULTIPLE GESTATION No [facility] Comment on above: Result Comment: KENNETH ECTED ON 11/13 AT 0106: PREVIOUSLY REPORTED NO OSBR RISK 1 [place] [address] [facility] RACE Comment [facility] Comment on above: Result Comment: Not provided. CORRECTED ON 11/13 AT 0106: PREVIOUSLY REPORTED RESULTS Report [facility] T18 (BY AGE) 1:4412 [facility] T18 RISK Not increased [facility] TEST RESULTS Negative [facility] UE3 MOM 1.04 [facility] UE3 VALUE 0.95 [facility] Comment on above: Result Comment: Unit : ng/mL AFP TETRAon 11-11-2023 WEIGHT 141 [facility] Comment on above: Result Comment: Unit : lbs HEMOGLOBIN A1Con 11-11-2023 Glucose [Mass/Vol] 97 mg/dL [facility] Comment on above: Testing performed at [place] [address] HbA1c (Bld) [Mass fraction] 5.0 % 0 - 6 % [facility] Comment on above: NORMAL <5.7% PREDIABETES 5.7-6.4% DIABETES 6.5% OR HIGHER [facility] Glucose [Mass/Vol] 97 mg/dL [facility] Comment on above: Result Comment: Test ing performed at [place] [address] Performed By: #### C TN #### Testing performed at [address] [address] HbA1c (Bld) [Mass fraction] 5.0 % Normal 0-6 [facility] Comment on above: Result Comment: NORMAL <5.7% PREDIABETES 5.7-6.4% DIABETES 6.5% OR HIGHER Performed By: #### C TNG #### Testing performed at [facility] [address] [place] [id number] PA IG,CT NG,RFX HPV ASCUon 0 10-20-2023 CHLAMYDIA,NUC. ACID AMP Negative [facility] Comment on above: Result Comment: Refe rence range: Negative PERFORMED AT [facility] DIAGNOSIS: Comment [facility] Comment on above: Result Comment: NEGA TIVE FOR INTRAEPITHELIAL LESION OR MALIGNANCY. PERFORMED AT [facility] GONOCOCCUS,NUC. ACID AMP Negative [facility] Comment on above: Result Comment: Refe rence range: Negative (NOTE) Source.............Cervix;Endocervix Other.............. No. of containers..01 ThinPrep Vial PERFORMED AT [facility] NOTE: Comment [facility] Comment on above: Result Comment: (NOT E) The Pap smear is a screening test designed to aid in the detection of premalignant and malignant conditions of the uterine cervix. It is not a diagnostic procedure and should not be used as the sole means of detecting cervical cancer. Both false-positive and false-negative reports do occur. PERFORMED AT [facility] PERFORMED BY: Comment [facility] Comment on above: Result Comment: Linda Traore, Golf Sales Manager (ASCP) PERFORMED AT [facility] SPECIMEN ADEQUACY: Comment [facility] Comment on above: Result Comment: (NOT E) Satisfactory for evaluation. Endocervical and/or squamous metaplastic cells (endocervical component) are present. PERFORMED AT [facility] TEST METHODOLOGY: Comment [facility] Comment on above: Result Comment: (NOT E) This liquid based ThinPrep(R) pap test was screened with the use of an image guided system. PERFORMED AT [facility] RPRon 09-27-2023 Reagin Ab RPR Ql (S) Non-Reactive Normal NONREACTIVE A [facility] Comment on above: Result Comment: Test ing performed at [place] [id number] Performed By: #### A CBC, ARPR, RUBL, GHIV #### Testing performed at [facility] [address] [place] [address] #### LVZG #### [facility] [address] [place] [address] [place] [address] RUBELLA SCREENon 09-27-2023 RUBELLA SCREEN Negative Abnormal POSITIVE [facility] Comment on above: Result Comment: Test ing performed at [place] [address] Performed By: #### A CBC, ARPR, RUBL, GHIV #### Testing performed at [facility] [address] [place] [address] #### LVZG #### Testing performed at [facility] [address] [place] [address] [place] [address] [place] 1st Trimesteron 09-27-2023 US 1st Trimester [...] corresponding gestational age +/- 1 week are: Wasta Rump Length: 2.8 cm Composite Ultrasound Age: [...] Size = Dates Uterus Position Anteverted Normal [facility] ABO/Rhon 09-26-2023 ABO/Rh Positive Invalid Interpretation Code [facility] Comment on above: Performed By: #### 2 [id number] #### [facility] [address] [place] [address] BLOOD BANKOrdered By: Cherelle Flaherty on 09-26-2023 ABO/Rh Interp Positive Invalid Interpretation Code [facility] BB Subsection BhCG Quanton 09-26-2023 HCG.beta subunit Qn 526559 m[IU]/mL High 1-3 [facility] Comment on above: Result Comment: 'F N ON < 1 - 3' ' 0.2 - 1 WEEK = 5 TO 50' ' 1 - 2 WEEKS = 50 - 500' ' 2 - 3 WEEKS = 100 - 5000' ' 3 - 4 WEEKS = 500 - 49609' ' 4 - 5 WEEKS = 1000 - 04393' ' 5 - 6 WEEKS = 00925 - 192170' ' 6 - 8 WEEKS = 03791 - 710160' ' 8 - 12 WEEKS = 03020 - 684270' Performed By: #### 2 [id number] #### [facility] [address] [place] [address] CBC w/ Auto Diffon 4 Basophils/100 WBC (Bld) 0.6 % Normal 0.0-2.0 [facility] Comment on above: Performed By: #### 2 900057 #### [facility] [address] [place] [address] Basophils/Leukocytes Auto (Bld) [Pure # fraction] 0.1 E9/L Normal 0.0-0.2 [facility] Comment on above: Performed By: #### 2 759274 #### [facility] [address] [place] [address] Eosinophils (Bld) [#/Vol] 0.1 E9/L Normal 0.0-0.5 [facility] Comment on above: Performed By: #### 2 [id number] #### [facility] [address] [place] [address] Eosinophils/100 WBC (Bld) 1.0 % Normal 0.0-8.0 [facility] Comment on above: Performed By: #### 2 625641 #### [facility] [address] [place] [address] Erythrocyte distribution width (RBC) [Ratio] 13.7 % Normal 10.9-14.2 [facility] Comment on above: Performed By: #### 2 [id number] #### [facility] [address] [place] [address] Hematocrit (Bld) [Volume fraction] 36.6 % Normal 34.0-46.0 [facility] Comment on above: Performed By: #### 2 937239 #### [facility] [address] [place] [address] Hemoglobin (Bld) [Mass/Vol] 12.6 g/dL Normal 12.0-16.0 [facility] Comment on above: Performed By: #### 2 730579 #### [facility] [address] [place] [address] Lymphocytes (Bld) [#/Vol] 1.1 E9/L Normal 1.0-4.0 [facility] Comment on above: Performed By: #### 2 026845 #### [facility] [address] [place] [address] Lymphocytes/100 WBC (Bld) 12.2 % Low 14.0-50.0 [facility] Comment on above: Performed By: #### 2 625142 #### [facility] [address] [place] [address] MCH (RBC) [Entitic mass] 29.3 pg Normal 27.0-34.0 [facility] Comment on above: Performed By: #### 2 969485 #### [facility] [address] [place] [address] MCHC (RBC) [Mass/Vol] 34.4 g/dL Normal 31.4-36.0 [facility] Comment on above: Performed By: #### 2 622856 #### [facility] [address] [place] [address] MCV (RBC) [Entitic vol] 85.1 fL Normal 80.0-100.0 [facility] Comment on above: Performed By: #### 2 002254 #### [facility] [address] [place] [address] Monocytes (Bld) [#/Vol] 0.8 E9/L Normal 0.2-1.0 [facility] Comment on above: Performed By: #### 2 838285 #### [facility] [address] [place] [address] Neutrophils (Bld) [#/Vol] 7.1 E9/L Normal 2.0-7.5 [facility] Comment on above: Performed By: #### 2 426244 #### [facility] [address] [place] [address] Neutrophils/100 WBC (Bld) 77.8 % High 36.0-75.0 [facility] Comment on above: Performed By: #### 2 119718 #### [facility] [address] [place] [address] Platelet 265.0 E9/L Normal 150.0-500.0 [facility] Comment on above: Performed By: #### 2 914792 #### [facility] [address] [place] [address] Platelet mean volume (Bld) [Entitic vol] 8.0 fL Normal 6.4-10.8 [facility] Comment on above: Performed By: #### 2 067083 #### [facility] [address] [place] [address] RBC (Bld) [#/Vol] 4.3 E12/L Normal 4.3-5.9 [facility] Comment on above: Performed By: #### 2 842111 #### [facility] [address] [place] [address] WBC corrected for nucl RBC Auto (Bld) [#/Vol] 9.1 E9/L Normal 4.0-11.0 [facility] Comment on above: Performed By: #### 2 107226 #### [facility] [address] [place] [address] CHEMISTRYOrdered By: SYSTEM SYSTEM on 09-26-2023 Albumin [...] mg/dL Re misol Chem HCG.beta subunit Qn [id number] m[IU]/mL High 1 - 3 mIU/m L [facility] Comment on above: Result Comment: 'F N ON < 1 - 3' ' 0.2 - 1 WEEK = 5 TO 50' ' 1 - 2 WEEKS = 50 - 500' ' 2 - 3 WEEKS = 100 - 5000' ' 3 - 4 WEEKS = 500 - 13195' ' 4 - 5 WEEKS = 1000 - 54784' ' 5 - 6 WEEKS = 31381 - 232572' ' 6 - 8 WEEKS = 94541 - 308528' ' 8 - 12 WEEKS = 98988 - 819643' Lipase [Catalytic activity/Vol] 23 U/L Normal 13 [...] 09-26-2023 Albumin [Mass/Vol] 4.4 g/dL Normal 3.3-5.0 [facility] Comment on above: Performed By: #### 2 747766 #### [facility] [address] [place] [address] Albumin/Globulin (S) [Mass conc ratio] 1.5 Normal 1.1-2.2 [facility] Comment on above: Performed By: #### 2 071509 #### [facility] [address] [place] [address] ALP [Catalytic activity/Vol] 52 Int._Unit/L Normal 21-98 [facility] Comment on above: Performed By: #### 2 678786 #### [facility]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 [Rel density] 1.017 Invalid Interpretation Code 1.005-1.030 [facility] Comment on above: Performed By: #### 4 [id number] #### [facility] [address] [place] [address] Urobilinogen (U) [Mass/Vol] Negative Normal Negative [facility] Comment on above: Performed By: #### 4 [id number] #### [facility] [address] [place] [address] Type of Urine collection method Clean Catch Normal [facility] Comment on above: Performed By: #### 4 [id number] #### [facility] [address] [place] [address] URINALYSISOrdered By: SYSTEM SYSTEM on 09-16-2023 Bilirubin Ql (U) Negative Normal Negativemg/dL FT UA Auto SS Clarity (U) Clear (09/16/23 8:46 AM) Normal Clear [facility] UA Auto SS Color (U) Light-Yellow 1 (09/16/23 8:46 AM) Normal Yellow [facility] UA Auto SS Comment on above: Interpretive Data: M icroscopic readings are only performed on those samples that meet specific criteria set forth by [facility]. Glucose Ql (U) Negative Normal [...] When: In 3 months Where: [address] [place] [phone] Medications What How Much When Instructions New aripiprazole (aripiprazole 5 mg Tab) 1 Tablets By Mouth Every day Refills: 2 Pickup at [facility] #[id number] Unchanged lactobacillus acidophilus (Acidophilus Probiotic Blend) Pharmacy Information [facility] #[id number]: [address], [place] [id number] [phone] Allergies No Known Medication Allergies Problems Ongoing - Any problem that you are currently receiving treatment for. BMI 23.0-23.9, adult Patient Survey You may receive a survey via text or e-mail asking about your office visit. Please share your experience with us by completing your survey. We appreciate your feedback and thank you for choosing us for your care. [facility] ED Note-Physicianon 08-31-19 ED Note-Physician [id number] #1.00TIFF [facility] CBC with Diffon 08-30-2023 Abs. Basophil 0.04 k/uL Normal 0.00-0.20 [facility] Comment on above: Performed By: #### C DP #### [facility] [address] [place], [place] [id number] Human Resources Vice President: Gio Peña MD Abs.Imm.Granulocyte 0.02 k/uL Normal 0.00-0.30 [facility] Comment on above: Performed By: #### C DP #### [facility] [address] [place], [place] [id number] Human Resources Vice President: Gio Peña MD Abs.Neutrophil (Seg) 4.62 k/uL Normal 2.5-7.0 [facility] Comment on above: Performed By: #### C DP #### [facility] [address] [place] [address] Human Resources Vice President: Gio Peña MD Basophils/100 WBC (Bld) 1 % Normal 0-2 [facility] Comment on above: Performed By: #### C DP #### [facility] [address] [place] [address] Human Resources Vice President: Gio Peña MD Eosinophils (Bld) [#/Vol] 0.09 10*3/uL Normal 0.00-0.40 [facility] Comment on above: Performed By: #### C DP #### [facility] [address] [place] [address] Human Resources Vice President: Gio Peña MD Eosinophils/100 WBC (Bld) 1 % Normal 0-5 [facility] Comment on above: Performed By: #### C DP #### [facility] [address] [place] [address] Human Resources Vice President: Gio Peña MD Erythrocyte distribution width (RBC) [Ratio] 12.8 % Normal 12.1-15.2 [facility] Comment on above: Performed By: #### C DP #### [facility] [address] [place] [address] Human Resources Vice President: Gio Peña MD Hematocrit (Bld) [Volume fraction] 38.0 % Normal 36.0-46.0 [facility] Comment on above: Performed By: #### C DP #### [facility] [address] [place] [address] Human Resources Vice President: Gio Peña MD Hemoglobin (Bld) [Mass/Vol] 12.5 g/dL Normal 12.0-16.0 [facility] Comment on above: Performed By: #### C DP #### [facility] [address] [place] [address] Human Resources Vice President: Gio Peña MD Immature granulocytes/100 WBC (Bld) 0 % Normal 0-5 [facility] Comment on above: Performed By: #### C DP #### [facility] [address] [place] [phone] Human Resources Vice President: Gio Peña MD Lymphocytes (Bld) [#/Vol] 1.87 10*3/uL Normal 1.00-4.80 [facility] Comment on above: Performed By: #### C DP #### [facility] [address] [place] [phone] Human Resources Vice President: Gio Peña MD Lymphocytes/100 WBC (Bld) 26 % Normal 15-40 [facility] Comment on above: Performed By: #### C DP #### [facility] [address] [place] [address] Human Resources Vice President: Gio Peña MD MCH (RBC) [Entitic mass] 28.2 pg Normal 26.0-34.0 [facility] Comment on above: Performed By: #### C DP #### [facility] [address] [place] [address] Human Resources Vice President: Gio Peña MD MCHC (RBC) [Mass/Vol] 32.9 g/dL Normal 31.0-37.0 [facility] Comment on above: Performed By: #### C DP #### [facility] [address] [place] [address] Human Resources Vice President: Gio Peña MD MCV (RBC) [Entitic vol] 85.8 fL Normal 80.0-100.0 [facility] Comment on above: Performed By: #### C DP #### [facility] [address] [place], [place] [phone] ([phone] Human Resources Vice President: Gio Peña MD Monocytes (Bld) [#/Vol] 0.55 10*3/uL Normal 0.00-1.00 [facility] Comment on above: Performed By: #### C DP #### [facility] [address] [place], [place] [phone] (863) Human Resources Vice President: Gio Peña MD Monocytes/100 WBC (Bld) 8 % Normal 4-8 [facility] Comment on above: Performed By: #### C DP #### [facility] [address] [place] [address] (206) Human Resources Vice President: Gio Peña MD Neutrophil (Seg) 64 % Normal 47-75 [facility] Comment on above: Performed By: #### C DP #### [facility] [address] [place] [address] (267) Human Resources Vice President: Gio Peña MD Platelet mean volume (Bld) [Entitic vol] 9.7 fL Normal 6.0-12.0 [facility] Comment on above: Performed By: #### C DP #### [facility] [address] [place] [address] ([phone] Human Resources Vice President: Gio Peña MD Platelets (Bld) [#/Vol] 265 10*3/uL Normal 140-450 [facility] Comment on above: Performed By: #### C DP #### [facility] [address] [place], [place] [phone] (666) Human Resources Vice President: Gio Peña MD RBC (Bld) [#/Vol] 4.43 10*6/uL Normal 4.00-5.20 [facility] Comment on above: Performed By: #### C DP #### [facility] [address] [place], [place] [phone] ([phone] Human Resources Vice President: Gio Peña MD WBC (Bld) [#/Vol] 7.2 10*3/uL Normal 4.5-13.5 [facility] Comment on above: Performed By: #### C DP #### [facility] [address] [place], [place] [phone] Human Resources Vice President: Gio Peña MD HCG, Quanton 08-30-2023 HCG, Quant 70826.0 mIU/mL High <5 [facility] Comment on above: Result Comment: Non-preg premeno <=5 Postmeno <=8 Male <=3 If HCG results do not concur with clinical observations, additional testing to confirm results is recommended. Performed By: #### B HCG #### [facility] [address] [place] [address] Human Resources Vice President: Gio ePña MD Type + Screenon 08-30-2023 Type + Screen Sample Expiration 09/02/2023,2359 ABO/Rh(D) O POSITIVE Antibody Screen NEGATIVE Normal [facility] Comment on above: Performed By: #### T YS #### [facility] [address] [place] [address] Human Resources Vice President: Gio Peña MD Family Medicine Office/Clini c [...] effects, signs (more content not included)... [facility] Comment on above: Result Comment: Elec tronically Signed By: Pari Underwood PA-C\.br\Date and Time Signed: 08/19/23 20:54 EDT\.br\Electronically Co-Signed By: Julia Rodriguez\.king\Date and Time Co-Signed: 08/13/23 17:18 EDT [employer] 08-16-2023 Forms [id number]# 1.00TIFF [facility] Ambulatory Visit Summaryon 0 08-13-2023 Ambulatory [...] AM EDT With: Pari Underwood PA-C Where: [facility] [place] Normal [facility] Patient Educationon 08-13-19 24 Patient Education [...] pray, or go to a place of yarsanism. ? Do some deep breathing. To do [...] or salt (sodium). General instructions ? Take dtjn-ost-lsmoquy and prescription medicines only as told by [...] [facility]ne (more content not included)... Normal [facility] CHLAMYDIA/GCon 08-04-2023 CHLAMYDIA TRACH Not detected Normal NOT DETECTED [facility] Comment on above: Performed By: #### C TNG #### [place] [address] N.GONORRHOEAE Not detected Normal NOT DETECTED [facility] Comment on above: Result Comment: TEST ING PERFORMED BY PCR Testing performed at [place] [address] Performed By: #### C TNG #### [place] [address] CHLAMYDIA/GONOCOCCUS, NAAon 08-04-2023 CHLAMYDIA TRACHOMATIS Not detected NOT DETECTED [facility] NEISSERIA GONORRHOEAE Not detected NOT DETECTED [facility] Comment on above: TESTING PERFORMED BY PCR Testing performed at [address] TRICH VAGon 08-04-2023 TRICH VAG Not detected Normal NOT DETECTED [facility] Comment on above: Result Comment: TEST ING PERFORMED BY PCR Testing performed at [place] [address] Performed By: #### A TV #### [place] [address] TRICHOMONAS VAGINALIS, NAAon 08-04-2023 T. vaginalis rRNA TELMA+probe Ql (Unsp spec) Not detected NOT DETECTED [facility] Comment on above: TESTING PERFORMED BY PCR Testing performed at [address] CHLAMYDIA/GCon 04-16-2023 CHLAMYDIA TRACH Not detected Normal NOT DETECTED [facility] Comment on above: Performed By: #### C TNG #### [place] [address] N.GONORRHOEAE Not detected Normal NOT DETECTED [facility] Comment on above: Result Comment: TEST ING PERFORMED BY PCR Testing performed at [place] [address] Performed By: #### C TNG #### [place] [address] CHLAMYDIA/GONOCOCCUS, NAAon 04-16-2023 CHLAMYDIA TRACHOMATIS Not detected NOT DETECTED [facility] NEISSERIA GONORRHOEAE Not detected NOT DETECTED [facility] Comment on above: TESTING PERFORMED BY PCR Testing performed at [address] TRICH VAGon 04-16-2023 TRICH VAG Not detected Normal NOT DETECTED [facility] Comment on above: Result Comment: TEST ING PERFORMED BY PCR Testing performed at [place] [address] Performed By: #### C TNG #### [place] [address] TRICHOMONAS VAGINALIS, NAAon 04-16-2023 T. vaginalis rRNA TELMA+probe Ql (Unsp spec) Not detected NOT DETECTED [facility] Comment on above: TESTING PERFORMED BY PCR Testing performed at [address] XR RIBS WITH CHEST, RIGHTon 10-24-2022 [...] fractures identified. IMPRESSION: No acute findings. Normal [facility] CHLAMYDIA/GCon 10-23-2022 CHLAMYDIA TRACH Not detected Normal NOT DETECTED [facility] Comment on above: Performed By: #### C TNG #### [place] [address] N.GONORRHOEAE Not detected Normal NOT DETECTED [facility] Comment on above: Result Comment: TEST ING PERFORMED BY PCR Testing performed at [place] [address] Performed By: #### C TNG #### [place] [address] CHLAMYDIA/GONOCOCCUS, NAAon 10-23-2022 CHLAMYDIA TRACHOMATIS Not detected NOT DETECTED [facility] NEISSERIA GONORRHOEAE Not detected NOT DETECTED [facility] Comment on above: TESTING PERFORMED BY PCR Testing performed at [address] TRICH VAGon 10-23-2022 TRICH VAG Not detected Normal NOT DETECTED [facility] Comment on above: Result Comment: TEST ING PERFORMED BY PCR Testing performed at [place] [address] Performed By: #### A TV #### [place] [address] TRICHOMONAS VAGINALIS, NAAon 10-23-2022 T. vaginalis rRNA TELMA+probe Ql (Unsp spec) Not detected NOT DETECTED [facility] Comment on above: TESTING PERFORMED BY PCR Testing performed at [address] CBC, EDIF, PLATELETon 2021 ABSOLUTE BASOPHIL COUNT 0.0 10*3/uL 0.0 - 0.2 10*3/uL [facility] Comment on above: Testing performed at [place] [address] Basophils/100 WBC (Bld) 0.5 % 0.0 - 2.0 % [facility] Differential cell count method Nom (Bld) AUTO DIFF % [facility] Eosinophils (Bld) [#/Vol] 0.20 10*3/uL 0.0 - 0.7 10*3/uL [facility] Eosinophils/100 WBC (Bld) 1.9 % 0.0 - 11.0 % [facility] Erythrocyte distribution width (RBC) [Ratio] 13.1 % 11.5 - 14.5 % [facility] Hematocrit (Bld) [Volume fraction] 32.9 % Low 36.0 - 48.0 % [facility] Hemoglobin (Bld) [Mass/Vol] 11.5 g/dL Low [facility] Interpretation and review of laboratory results Abnormal [facility] Lymphocytes (Bld) [#/Vol] 1.50 10*3/uL 1.2 - 3.4 10*3/uL [facility] Lymphocytes/100 WBC (Bld) 17.3 % Low 20.0 - 55.0 % [facility] MCH (RBC) [Entitic mass] 31.1 pg 26.0 - 35.0 PG [facility] MCHC (RBC) [Mass/Vol] 35.0 g/dL [facility] MCV (RBC) [Entitic vol] 89.0 fL [facility] Monocytes (Bld) [#/Vol] 0.8 10*3/uL High 0.0 - 0.7 10*3/uL [facility] Monocytes/100 WBC (Bld) 8.6 % 0.0 - 10.0 % [facility] Neutrophils (Bld) [#/Vol] 6.3 10*3/uL 1.4 - 6.5 10*3/uL [facility] Neutrophils/100 WBC (Bld) 71.7 % 37.0 - 75.0 % [facility] Platelet mean volume (Bld) [Entitic vol] 8.4 fL [facility] Platelets (Bld) [#/Vol] 226 10*3/uL 130.0 - 400.0 10*3/uL [facility] RBC (Bld) [#/Vol] 3.69 10*6/uL Low 4.0 - 5.4 10*6/uL [facility] WBC (Bld) [#/Vol] 8.8 10*3/uL 3.6 - 11.0 10*3/uL [facility] GLUCOSE POST LOADINGon 06-02 Glucose 1 Hr post 50 g glucose PO [Mass/Vol] 93 mg/dL [facility] Comment on above: Testing performed at [place], [place] [address] [facility] COLPOSCOPYon 03-13-2021 Doyle Amaro MD [...] as needed for mild to moderate pain. [facility] Narrative [Interpretat ion] Study observation general USon 02-06-2021 : 1. Single of 11 weeks and 5 days. 2. heart rate of 168 bpm. 3. US SEBASTIAN 08/23/2021, which is inconsistent with SEBASTIAN by LMP and should be changed. [facility] REFERRING PHYSICIAN: Dr. Amaro TECHNOLOGIST: Ashley Acosta PROCEDURE DATE : 02/06/2021 INDICATIONS: Early gestational, dating LMP 11/09/2020, SEBASTIAN 08/16/2021 PROCEDURE DETAILS A single was noted within the uterus. heart rate of 168 bpm. The CRL measures 5.03 cm , 11 weeks 5 days. FINAL [facility] Radiology Study observation (narrative) [facility] ABO/RH(D) TYPINGon 1 ABO and Rh group Nom (Bld ) Positive [facility] ABO and Rh group Nom (Bld ) Testing performed at [place] [id number] [facility] ANTIBODY SCREENon 01-14-2021 Blood group antibody screen Ql Negative [facility] EXPIRATION DATE 01/17/2021,2359 [facility] EXPIRATION DATE Testing performed at [place], [place] [address] [facility] CBC, EDIF, PLATELETon 2020 ABSOLUTE BASOPHIL COUNT 0.0 10*3/uL 0.0 - 0.2 10*3/uL [facility] Comment on above: Testing performed at [place], [place] [address] Basophils/100 WBC (Bld) 0.6 % 0.0 - 2.0 % [facility] Differential cell count method Nom (Bld) AUTO DIFF % [facility] Eosinophils (Bld) [#/Vol] 0.10 10*3/uL 0.0 - 0.7 10*3/uL [facility] [facility] Eosin[facility]/100 WBC (Bld) 1.3 % 0.0 - 11.0 % [facility] Erythrocyte distribution width (RBC) [Ratio] 13.5 % 11.5 - 14.5 % [facility] Hematocrit (Bld) [Volume fraction] 35.9 % Low 36.0 - 48.0 % [facility] Hemoglobin (Bld) [Mass/Vol] 12.2 g/dL [facility] Interpretation and review of laboratory results Abnormal [facility] Lymphocytes (Bld) [#/Vol] 2.40 10*3/uL 1.2 - 3.4 10*3/uL [facility] Lymphocytes/100 WBC (Bld) 34.3 % 20.0 - 55.0 % [facility] MCH (RBC) [Entitic mass] 28.7 pg 26.0 - 35.0 PG [facility] MCHC (RBC) [Mass/Vol] 33.9 g/dL [facility] MCV (RBC) [Entitic vol] 84.7 fL [facility] Monocytes (Bld) [#/Vol] 0.7 10*3/uL 0.0 - 0.7 10*3/uL [facility] Monocytes/100 WBC (Bld) 9.7 % 0.0 - 10.0 % [facility] Neutrophils (Bld) [#/Vol] 3.8 10*3/uL 1.4 - 6.5 10*3/uL [facility] Neutrophils/100 WBC (Bld) 54.1 % 37.0 - 75.0 % [facility] Platelet mean volume (Bld) [Entitic vol] 9.3 fL [facility] Platelets (Bld) [#/Vol] 289 10*3/uL 130.0 - 400.0 10*3/uL [facility] RBC (Bld) [#/Vol] 4.23 10*6/uL 4.0 - 5.4 10*6/uL [facility] WBC (Bld) [#/Vol] 7.1 10*3/uL 3.6 - 11.0 10*3/uL [facility] HIV 1+2 Ab+HIV1 p24 Ag IA Ql on 01-14-2021 HIV 1+2 Ab IA Ql Non-Reactive NONREACTIVE [facility] Comment on above: Testing performed at [address] System RAPID TOX SCREEN WITH RELEX TO DRUGMCon 01-14-2021 Amphetamine (U) [Mass/Vol] Negative NEGATIVE NG/ML [facility] Comment on above: <500 ng/ml CUTOFF Barbiturates Screen Ql (U) Negative NEGATIVE NG/ML [facility] Comment on above: <200 ng/ml CUTOFF Benzodiazepines Ql (U) Negative NEGATIVE NG/ML [facility] Comment on above: <150 ng/ml CUTOFF Benzoylecgonine Ql (U) Negative NEGATIVE NG/ML [facility] Comment on above: <150 ng/ml CUTOFF Buprenorphine Ql (U) Negative NEGATIVE NG/ML [facility] Comment on above: <10 ng/ml CUTOFF Testing performed at [place] [address] Cannabinoids Screen Ql (U) Positive Abnormal NEGATIVE NG/ML [facility] System Comment on above: <50 ng/ml CUTOFF *Unconfirmed Screening Result* Unconfirmed screening results are to be used only for medical treatment purposes. Interpretation and review of laboratory results Abnormal [facility] Methadone Screen Ql (U) Negative NEGATIVE NG/ML [facility] Comment on above: <200 ng/ml CUTOFF Methamphetamine (U) [Mass/Vol] Negative NEGATIVE NG/ML [facility] System Comment on above: <500 ng/ml CUTOFF Opiates Screen Ql (U) Negative NEGATIVE NG/ML [facility] Comment on above: <100 ng/ml CUTOFF oxyCODONE Ql (U) Negative NEGATIVE NG/ML [facility] Comment on above: <100 ng/ml CUTOFF Phencyclidine Screen method >25 ng/mL Ql (U) Negative NEGATIVE NG/ML [facility] Comment on above: <25 ng/ml CUTOFF Propoxyphene+Norpropo xyphene Screen Ql (U) Negative NEGATIVE NG/ML [facility] Comment on above: <300 ng/ml CUTOFF Tricyclic antidepressants Screen Ql (U) Negative NEGATIVE NG/ML [facility] Comment on above: <300 ng/ml CUTOFF [facility] REQUEST FOR MISC LAB SENDOUT on 01-14-2021 Miscellaneous Test 1 SPECIMEN SENT TO REFERENCE LAB FOR TESTING [facility] Comment on above: [id number] CANNABINOID Testing performed at [place], [place] [id number] [place] [address] Chlamydia/GC,DNA Ampon 08-09 Chlamydia Probe Negative Normal NEG [facility] Comment on above: Result Comment: CHLA MYDIA [...] nucleic acid target. Performed By: #### [facility] #### [facility] [address] [place] [phone] Human Resources Vice President: Geovani Cordon MD Gonorrhea Probe Negative Normal NEG [facility] Comment on above: Result Comment: NEIS SERIA [...] target. Performed By: #### S [facility] #### [facility] [address] [place] [address] [place] [address] Human Resources Vice President: Geovani Cordon MD Herpes 1+2 Molecularon 08-09 HSV-1, NAAT Negative Normal NEG [facility] Comment on above: Result Comment: HSV- 1 DNA not detected by nucleic acid amplification Performed By: #### H BS, HSVDNA, TREP, AHCV, HIVCMB #### [facility] [address] [place] [address] Human Resources Vice President: Geovani Cordon MD HSV-2, NAAT Negative Normal [facility] Comment on above: Result Comment: HSV- 2 DNA not detected by nucleic acid amplification Performed By: #### H BS, HSVDNA, TREP, AHCV, HIVCMB #### [facility] [address] [place] [address] Human Resources Vice President: Geovani Cordon MD Vaginitis DNA Probeon 2020 [...] of vaginitis/vaginosis. Report Status FINAL 08/09/2020 Normal [facility] Comment on above: Performed By: #### V AGDNA #### [address] [address] Human Resources Vice President: Geovani Cordon MD [facility] [address] [place] [address] Human Resources Vice President: Gio Peña MD HIV Ag/Abon 08-08-2020 HIV Ag/Ab Non-Reactive Normal NR [facility] Comment on above: Result Comment: No l aboratory evidence of HIV infection. If acute HIV infection is suspected, consider testing for HIV-1 RNA. Performed By: #### H BS, HSVDNA, TREP, AHCV, HIVCMB #### [facility] [address] [place] [address] [phone] Human Resources Vice President: Geovani Cordon MD Hep B Surf Agon 08-08-2020 Hep B Surf Ag Non-Reactive Normal [facility] Comment on above: Performed By: #### H BS, HSVDNA, TREP, AHCV, HIVCMB #### [facility] [address] [place] [address] [phone] Human Resources Vice President: Geovani Cordon MD Hep C Abon 08-08-2020 Hep C Ab Non-Reactive Normal [facility] Comment on above: Result Comment: [...] H BS, HSVDNA, TREP, AHCV, HIVCMB #### [facility] [address] [place] [address] Human Resources Vice President: Geovani Cordon MD Herpes 1+2 Molecularon 08-08 Source: NOT REPORTED Normal [facility] Comment on above: Performed By: #### H BS, HSVDNA, TREP, AHCV, HIVCMB #### [facility] [address] [place] [address] Human Resources Vice President: Geovani Cordon MD T.pallidum Ab Screenon 08-08 T.pallidum Ab Screen Non-Reactive Normal [facility] Comment on above: Result Comment: T. pallidum antibodies are not detected. There is no serological evidence of infection with T. pallidum (early primary syphilis cannot be excluded). Retest in 2-4 weeks if syphilis is clinically suspect. Performed By: #### H BS, HSVDNA, TREP, AHCV, HIVCMB #### [facility] [address] [place] [address] [phone] Human Resources Vice President: Geovani Cordon MD CBC W/DIFFon 09-29-2019 ABS BASOPHILS 0.1 10*3/uL Normal 0.0-0.2 [facility] Comment on above: Order Comment: No: D o not add to previous draw Performed By: #### 5 0103 #### [facility] [address] [place] [address], [facility] ABS IMM GRANS 0.0 10*3/uL Normal 0.0-0.2 [facility] Comment on above: Order Comment: No: D o not add to previous draw Performed By: #### 5 0103 #### [facility] [address] [place] [address], [facility] ABS NEUTROPHILS 2.1 10*3/uL Normal 1.6-7.6 [facility] Comment on above: Order Comment: No: D o not add to previous draw Performed By: #### 5 0103 #### [facility] [address] [place] [address], [facility] Basophils/100 WBC (Bld) 1.2 % High 0.0-1.0 [facility] Comment on above: Order Comment: No: D o not add to previous draw Performed By: #### 5 0103 #### [facility] [address] [facility] [place] [address], [facility] Eosinophils (Bld) [#/Vol] 0.3 10*3/uL Normal 0.0-0.5 [facility] Comment on above: Order Comment: No: D o not add to previous draw Performed By: #### 5 0103 #### [facility] [address] [facility] [place] [place] [id number], [facility] Eosinophils/100 WBC (Bld) 4.5 % Normal 0.0-6.0 [facility] Comment on above: Order Comment: No: D o not add to previous draw Performed By: #### 5 0103 #### [facility] [address] [facility] [place] [id number], [facility] Erythrocyte distribution width (RBC) [Ratio] 14.0 % Normal 11.5-15.0 [facility] Comment on above: Order Comment: No: D o not add to previous draw Performed By: #### 5 0103 #### [facility] [address] [facility] [place] [address], [facility] Hematocrit (Bld) [Volume fraction] 39.7 % Normal 36.0-45.0 [facility] Comment on above: Order Comment: No: D o not add to previous draw Performed By: #### 5 0103 #### [facility] [address] [facility] [place] [address], [facility] Hemoglobin (Bld) [Mass/Vol] 12.9 g/dL Normal 12.0-15.0 [facility] Comment on above: Order Comment: No: D o not add to previous draw Performed By: #### 5 0103 #### [facility] [address] [facility] [place] [address], [facility] IMMATURE GRANS 0.3 % Normal 0.0-1.0 [facility] Comment on above: Order Comment: No: D o not add to previous draw Performed By: #### 5 0103 #### [facility] [address] [facility] [place] [address], [facility] Lymphocytes (Bld) [#/Vol] 3.1 10*3/uL Normal 1.2-4.0 [facility] Comment on above: Order Comment: No: D o not add to previous draw Performed By: #### 5 0103 #### [facility] [address] [facility] [place] [address], [facility] Lymphocytes/100 WBC (Bld) 51.7 % High 20.0-45.0 [facility] Comment on above: Order Comment: No: D o not add to previous draw Performed By: #### 5 0103 #### [facility] [address] [facility] [place] [address], [facility] MCH (RBC) [Entitic mass] 27.7 pg Normal 27.0-33.0 [facility] Comment on above: Order Comment: No: D o not add to previous draw Performed By: #### 5 0103 #### [facility] [address] [place] [address], [facility] MCHC (RBC) [Mass/Vol] 32.5 g/dL Normal 32.0-35.0 [facility] Comment on above: Order Comment: No: D o not add to previous draw Performed By: #### 5 0103 #### [facility] [address] [place] [id number], [facility] MCV (RBC) [Entitic vol] 85.2 fL Normal 82.0-98.0 [facility] Comment on above: Order Comment: No: D o not add to previous draw Performed By: #### 5 0103 #### [facility] [address] [facility] [place] [address], [facility] Monocytes (Bld) [#/Vol] 0.4 10*3/uL Normal 0.1-1.0 [facility] Comment on above: Order Comment: No: D o not add to previous draw Performed By: #### 5 0103 #### [facility] [address] [facility] [place] [place] [id number], [facility] MONOS 7.2 % Normal 5.0-12.0 [facility] Comment on above: Order Comment: No: D o not add to previous draw Performed By: #### 5 0103 #### [facility] [address] [place] [address], [facility] Neutrophils/100 WBC (Bld) 35.1 % Low 40.0-72.0 [facility] Comment on above: Order Comment: No: D o not add to previous draw Performed By: #### 5 0103 #### [facility] [address] [place] [id number], [facility] Nucleated RBC/100 WBC (Bld) [Ratio] 0 % Normal 0-0 [facility] Comment on above: Order Comment: No: D o not add to previous draw Performed By: #### 5 0103 #### [facility] [address] [place] [id number], [facility] PLAT CNT 237 10*3/uL Normal 150-400 [facility] Comment on above: Order Comment: No: D o not add to previous draw Performed By: #### 5 0103 #### [facility] [address] [place] [address], [facility] RBC (Bld) [#/Vol] 4.66 10*6/uL Normal 3.80-5.00 [facility] Comment on above: Order Comment: No: D o not add to previous draw Performed By: #### 5 0103 #### [facility] [address] [place] [id number], [facility] WBC (Bld) [#/Vol] 5.96 10*3/uL Normal 4.00-10.60 [facility] Comment on above: Order Comment: No: D o not add to previous draw Performed By: #### 5 0103 #### [facility] [address] [place] [address], [facility] COMP METABOLIC PANELon 09-28 Albumin [Mass/Vol] 4.5 g/dL Normal 3.5-5.7 [facility] Comment on above: Order Comment: No: D o not add to previous draw Performed By: #### 4 4396, 56605, 94546, 99750, 20320, 78463 #### [facility] [address] [place] [address], [facility] ALKALINE PHOSPH 59 IU/L Normal 40-460 [facility] Comment on above: Order Comment: No: D o not add to previous draw Performed By: #### 4 4396, 58400, 19451, 06034, 30502, 73806 #### [facility] [address] [place] [address], [facility] ALT [Catalytic activity/Vol] 10 U/L Normal 7-52 [facility] Comment on above: Order Comment: No: D o not add to previous draw Performed By: #### 4 4396, 37166, 80897, 98549, 61499, 21183 #### [facility] [address] [place] [address], [place] AST [Catalytic activity/Vol] 17 U/L Normal 13-39 [facility] Comment on above: Order Comment: No: D o not add to previous draw Performed By: #### 4 4396, 89992, 07741, 75380, 73685, 39206 #### [facility] [address] [place] [address], [place] Bilirubin [Mass/Vol] 0.4 mg/dL Normal 0.3-1.0 [facility] Comment on above: Order Comment: No: D o not add to previous draw Performed By: #### 4 4396, 13334, 63127, 12068, 30258, 09524 #### [facility] [address] [place] [address], [place] Calcium [Mass/Vol] 9.5 mg/dL Normal 8.6-10.3 [facility] Comment on above: Order Comment: No: D o not add to previous draw Performed By: #### 4 4396, 90136, 53420, 76946, 44913, 51884 #### [facility] [address] [place] [address], [place] Chloride [Moles/Vol] 104 mmol/L Normal 98-107 [facility] Comment on above: Order Comment: No: D o not add to previous draw Performed By: #### 4 4396, 93342, 86323, 36628, 89862, 88973 #### [facility] [address] [place] [address], [place] CO2 [Moles/Vol] 28 mmol/L Normal 21-31 [facility] Comment on above: Order Comment: No: D o not add to previous draw Performed By: #### 4 4396, 65453, 88225, 57652, 08721, 24695 #### [facility] [address] [place] [address], [place] Creatinine [Mass/Vol] 0.66 mg/dL Normal 0.60-1.20 [facility] Comment on above: Order Comment: No: D o not add to previous draw Performed By: #### 4 4396, 89048, 59616, 66934, 97995, 37117 #### [facility] [address] [place] [address], [place] GFR/1.73 sq M predicted among blacks MDRD (S/P/Bld) [Vol rate/Area] Calculation not validated for patients under 18 years Abnormal >60 [facility] Comment on above: Order Comment: No: D o not add to previous draw Performed By: #### 4 4396, 93849, 17959, 18478, 64125, 38547 #### [facility] [address] [place] [address], [place] GFR/1.73 sq M predicted among non-blacks MDRD (S/P/Bld) [Vol rate/Area] Calculation not validated for patients under 18 years Abnormal >60 [facility] Comment on above: Order Comment: No: D o not add to previous draw Performed By: #### 4 4396, 48033, 58153, 62969, 31067, 33292 #### [facility] [address] [place] [address], [place] Glucose [Mass/Vol] 139 mg/dL High 70-100 [facility] Comment on above: Order Comment: No: D o not add to previous draw Performed By: #### 4 4396, 31645, 10467, 84247, 97468, 17226 #### [facility] [address] [place] [address], [place] Potassium [Moles/Vol] 3.6 mmol/L Normal 3.5-5.1 [facility] Comment on above: Order Comment: No: D o not add to previous draw Performed By: #### 4 4396, 87752, 79174, 85699, 68930, 74927 #### [facility] [address] [place] [address], [facility] Protein [Mass/Vol] 7.2 g/dL Normal 6.0-8.3 [facility] Comment on above: Order Comment: No: D o not add to previous draw Performed By: #### 4 4396, 64683, 59331, 22500, 04284, 44931 #### [facility] [address] [place] [address], [facility] Sodium [Moles/Vol] 139 mmol/L Normal 136-145 [facility] Comment on above: Order Comment: No: D o not add to previous draw Performed By: #### 4 4396, 87464, 01316, 84925, 87217, 44955 #### [facility] [address] [place] [address], [facility] Urea nitrogen [Mass/Vol] 9 mg/dL Normal 7-25 [facility] Comment on above: Order Comment: No: D o not add to previous draw Performed By: #### 4 4396, 27298, 53371, 79153, 20616, 32704 #### [facility] [address] [place] [address], [facility] FREE T3on 09-29-2019 Free T3 [Mass/Vol] 4.2 pg/mL High 2.5-3.9 [facility] Comment on above: Order Comment: No: D o not add to previous draw Performed By: #### 4 4396, 86520, 79787, 17028, 24685, 20019 #### [facility] [address] [place] [address], [place] FREE T4on 09-29-2019 Free T4 [Mass/Vol] 0.82 ng/dL Normal 0.71-1.85 [facility] Comment on above: Order Comment: No: D o not add to previous draw Performed By: #### 4 4396, 60174, 34895, 85075, 78885, 58539 #### [facility] [address] [place] [address], [facility] LIPID PROFILEon 09-29-2019 Cholesterol [Mass/Vol] 153 mg/dL Normal 120-170 [facility] Comment on above: Order Comment: No: D o not add to previous draw Result Comment: CHOL ESTEROL REFERENCE RANGE: 20 YEARS AND OLDER CARDIOVASCULAR RISK Less than 200 mg/dl Low Risk 200 to 239 mg/dl Borderline Risk 240 mg/dl and greater High Risk Performed By: #### 4 4396, 86540, 48606, 73453, 27703, 69662 #### [facility] [address] [place] [address], [facility] Cholesterol in HDL [Mass/Vol] 56 mg/dL Normal 23-92 [facility] Comment on above: Order Comment: No: D o not add to previous draw Result Comment: Slig ht variation in normal range could be due to gender and/or age. HDL CHOLESTEROL REFERENCE RANGE: 20 years and older Cardiovascular Risk > or =60 mg/dL Desirable 40 TO 59 mg/dL Low Risk <40 mg/dL High Risk Performed By: #### 4 4396, 81116, 08245, 34117, 75045, 48572 #### [facility] [address] [place] [address], [facility] Cholesterol in LDL [Mass/Vol] 74 mg/dL Normal 0-130 [facility] Comment on above: Order Comment: No: D o not add to previous draw Result Comment: LDL IS A CALCULATION LDL IS ONLY VALID IF THE TRIG IS LESS THAN 400. Performed By: #### 4 4396, 53025, 41391, 91243, 54164, 18217 #### [facility] [address] [place] [address], [facility] Cholesterol.total/Cho lesterol in HDL [Mass ratio] 2.7 {ratio} Normal 0.0-4.5 [facility] Comment on above: Order Comment: No: D o not add to previous draw Performed By: #### 4 4396, 17685, 03067, 06894, 84259, 06595 #### [facility] [address] NON-HDL CHOLESTEROL 97 mg/dL Normal [facility] Comment on above: Order Comment: No: D o not add to previous draw Performed By: #### 4 4396, 03049, 73190, 67893, 22448, 20614 #### [facility] [address] [place], [place] [address] [place] [address] Triglyceride [Mass/Vol] 114 mg/dL Normal 37-148 [facility] Comment on above: Order Comment: No: D o not add to previous draw Result Comment: TRIG LYCERIDE REFERENCE RANGE: 20 YEARS AND OLDER CARDIOVASCULAR RISK LESS THAN 150 mg/dl LOW RISK 150 TO 199 mg/dl BORDERLINE RISK 200 mg/dl AND GREATER HIGH RISK Performed By: #### 4 4396, 40564, 39296, 99261, 63119, 69084 #### [facility] [address] VLDL CHOL 23 mg/dL Normal 0-40 [facility] Comment on above: Order Comment: No: D o not add to previous draw Performed By: #### 4 4396, 61509, 50757, 24007, 55479, 58140 #### [facility] [address] [place] [address], [facility] SERUM TESTon 09-28 TEST Negative Normal [facility] Comment on above: Order Comment: No: D o not add to previous draw Performed By: #### 4 6473 #### [facility] [address] [place] [address], [facility] TSH3on 09-29-2019 TSH 3RD GENERATION 1.24 uIU/mL Normal 0.34-5.60 [facility] Comment on above: Order Comment: No: D o not add to previous draw Performed By: #### 4 4396, 99755, 96526, 68419, 75363, 34993 #### [facility] [address] [place] [address], [facility] VITAMIN D 25-HYDROXYon 09-28 VITAMIN D 25-OH 42.5 ng/mL Normal 30.0-80.0 [facility] Comment on above: Result Comment: >80. 0 Toxicity possible Performed By: #### 4 4396, 40741, 75364, 50269, 42594, 66341 #### [facility] [address] [place] [address], [facility] Urine Drug Screenon [...] [Mass/Vol] <5 Low 10 - 30 ug/mL [place] Interpretation and review of laboratory results Abnormal [place] Basic Metabolic Panelon 09-06 Anion gap [Moles/Vol] 15 mmol/L 9 - 17 mmol/L [place] Bun/Cre Ratio 13 [place] Calcium [Mass/Vol] 10.5 mg/dL High 8.4 - 10. 2 mg/dL [place] Chloride [Moles/Vol] 98 mmol/L 98 - 10 7 mmol/L [place] CO2 [Moles/Vol] 23 mmol/L 20 - 31 mmol/L [place] Creatinine [Mass/Vol] 0.61 mg/dL 0.5 - 0.9 mg/dL [place] GFR NOT REPORTED >60 mL/min [place] GFR Non- Pediatric GFR requires additional information. Refer to [facility] website for calculator. >60 mL/min [place] GFR/1.73 sq M predicted among non-blacks MDRD (S/P/Bld) [Vol rate/Area] NOT REPORTED [place] GFR/1.73 sq M predicted among non-blacks MDRD (S/P/Bld) [Vol rate/Area] [place] Comment on above: Average GFR for <20 years old not available. Chronic Kidney Disease: <60 mL/min/1.73sq m Kidney failure: <15 mL/min/1.73sq m eGFR calculated using average adult body mass. Additional eGFR calculator available at: [email or web address]_crcl_2012.htm Glucose [Mass/Vol] 106 mg/dL High 60 - 100 mg/dL [place] Potassium [Moles/Vol] 3.9 mmol/L 3.6 - 4.9 mmol/L [place] Sodium [Moles/Vol] 136 mmol/L 135 - 144 mmol/L [place] Urea nitrogen [Mass/Vol] 8 mg/dL 5 - 18 mg/dL [place] CBC Auto Differentialon 09-06-2019 Basophils (Bld) [#/Vol] 0.00 10*3/uL [place] Basophils/100 WBC (Bld) 0 % 0 - 2 % [place] Differential Type YES [facility] [place] Eosinophils (Bld) [#/Vol] 0.10 10*3/uL [place] Eosinophils/100 WBC (Bld) 1 % 0 - 5 % [place] Erythrocyte distribution width (RBC) [Ratio] 14.8 % 12.1 - 15.2 % [place] Hematocrit (Bld) [Volume fraction] 40.2 % 36 - 46 % [place] Hemoglobin (Bld) [Mass/Vol] 13.8 g/dL 12 - 16 g/dL [place] Lymphocytes (Bld) [#/Vol] 1.90 10*3/uL [place] Lymphocytes/100 WBC (Bld) 21 % 14 - 41 % [place] MCH (RBC) [Entitic mass] 28.4 pg 25 - 35 pg [place] MCHC (RBC) [Mass/Vol] 34.2 g/dL 31 - 37 g/dL [place] MCV (RBC) [Entitic vol] 83.1 fL 78 - 102 fL [place] Monocytes (Bld) [#/Vol] 0.70 10*3/uL [place] Monocytes/100 WBC (Bld) 7 % 4 - 8 % [place] Platelet mean volume (Bld) [Entitic vol] NOT REPORTED 6 - 12 fL [place] Platelets (Bld) [#/Vol] 238 10*3/uL [place] Platelets (Bld) [#/Vol] NOT REPORTED [place] RBC (Bld) [#/Vol] 4.84 10*6/uL 4 - 5.2 m/uL [place] RBC morphology finding Nom (Bld) NOT REPORTED [place] Segmented neutrophils/100 WBC (Bld) 71 % 45 - 76 % [place] Segs Absolute 6.50 [facility] [place] WBC (Bld) [#/Vol] 9.2 10*3/uL [place] WBC (Bld) [#/Vol] NOT REPORTED per 100 WBC [place] WBC Morphology NOT REPORTED [facility] [place] Ethanolon 09-27-2019 Ethanol [Mass/Vol] mg/dL <10 mg/dL [place] Ethanol percent <0.010 % [facility] [place] HCG Qualitative, Serumon hCG Qual Negative NEGATIVE [place] Comment on above: Specimens with hCG l evels near the threshold of the test (25 mIU/mL) may give a negative or indeterminate result. In such cases, another test should be performed with a new specimen in 48-72 hours. If early is suspected clinically in this setting, correlation with quantitative serum b-hCG level is suggested. [employer] has confirmed the use of plasma for this test. This has not been cleared or approved by the U.S. Food and Drug Administration. The FDA has determined that such clearance is not necessary. Otheron 09-27-2019 Interpretation and review of laboratory results Abnormal [place] Immature granulocytes (Bld) [#/Vol] NOT REPORTED 0 % [place] Salicylateon 09-27-2019 Salicylate Lvl <1 Low 3 - 10 mg/dL [place] TSH without Reflexon 020 TSH Qn 0.49 m[IU]/L [place] XR HAND RIGHT (MIN 3 VIEWS)o n 09-27-2019 EXAM: XR HAND RIGHT (MIN 3 VIEWS) HISTORY: Reason for exam:->pain to lateral MCs, punched wall COMPARISON: Right hand, 07/20/2014. TECHNIQUE: AP, oblique and lateral views of the right hand. FINDINGS: No acute or intrinsic osseous, articular or soft tissue abnormality is seen. [place] No acute findings. [place] Jeovany, Mhpn Incoming Radiant Results From [employer] - 09/27/2019 11:39 PM EDT EXAM: XR HAND RIGHT (MIN 3 VIEWS) HISTORY: Reason for exam:->pain to lateral MCs, punched wall COMPARISON: Right hand, 07/20/2014. TECHNIQUE: AP, oblique and lateral views of the right hand. FINDINGS: No acute or intrinsic osseous, articular or soft tissue abnormality is seen. IMPRESSION: No acute findings. [place] CBC Auto Differentialon 11-0 Basophils (Bld) [#/Vol] 0.00 10*3/uL [place] Basophils/100 WBC (Bld) 1 % 0 - 2 % [place] Differential Type YES [place] Eosinophils (Bld) [#/Vol] 0.00 10*3/uL [place] Eosinophils/100 WBC (Bld) 1 % 0 - 5 % [place] Erythrocyte distribution width (RBC) [Ratio] 14.3 % 12.1 - 15.2 % [place] Hematocrit (Bld) [Volume fraction] 40.7 % 36 - 46 % [place] Hemoglobin (Bld) [Mass/Vol] 13.4 g/dL 12 - 16 g/dL [place] Interpretation and review of laboratory results Abnormal [place] Lymphocytes (Bld) [#/Vol] 1.20 10*3/uL [place] Lymphocytes/100 WBC (Bld) 33 % 14 - 41 % [place] MCH (RBC) [Entitic mass] 27.3 pg 25 - 35 pg [place] MCHC (RBC) [Mass/Vol] 33.0 g/dL 31 - 37 g/dL [place] MCV (RBC) [Entitic vol] 82.8 fL 78 - 102 fL [place] Monocytes (Bld) [#/Vol] 0.40 10*3/uL [place] Monocytes/100 WBC (Bld) 12 % High 4 - 8 % [place] Platelet mean volume (Bld) [Entitic vol] NOT REPORTED 6 - 12 fL [place] Platelets (Bld) [#/Vol] 235 10*3/uL [place] Platelets (Bld) [#/Vol] NOT REPORTED [place] RBC (Bld) [#/Vol] 4.92 10*6/uL 4 - 5.2 m/uL [place] RBC morphology finding Nom (Bld) NOT REPORTED [place] Segmented neutrophils/100 WBC (Bld) 53 % 45 - 76 % [place] Segs Absolute 2.10 [place] WBC (Bld) [#/Vol] 3.8 10*3/uL [place] WBC (Bld) [#/Vol] NOT REPORTED per 100 WBC [place] WBC Morphology NOT REPORTED [place] Comprehensive Metabolic Pane bonita 01-12-2019 Albumin [Mass/Vol] 4.8 g/dL High 3.2 - 4.5 g/dL [place] Albumin/Globulin [Mass ratio] NOT REPORTED [place] ALP [Catalytic activity/Vol] 88 U/L 47 - 119 U/L [place] ALT [Catalytic activity/Vol] 12 U/L 5 - 33 U/L [place] Anion gap [Moles/Vol] 17 mmol/L 9 - 17 mmol/L [place] AST [Catalytic activity/Vol] 24 U/L <32 [place] Bilirubin Ql (U) 0.46 mg/dL 0.3 - 1.2 mg/dL [place] Bun/Cre Ratio 14 [place] Calcium [Mass/Vol] 10.4 mg/dL High 8.4 - 10. 2 mg/dL [place] Chloride [Moles/Vol] 101 mmol/L 98 - 10 7 mmol/L [place] CO2 [Moles/Vol] 22 mmol/L 20 - 31 mmol/L [place] Creatinine [Mass/Vol] 0.65 mg/dL 0.5 - 0.9 mg/dL [place] GFR NOT REPORTED >60 mL/min [place] GFR Non- Pediatric GFR requires additional information. Refer to [employer] website for calculator. >60 mL/min [place] GFR/1.73 sq M predicted among non-blacks MDRD (S/P/Bld) [Vol rate/Area] NOT REPORTED [place] GFR/1.73 sq M predicted among non-blacks MDRD (S/P/Bld) [Vol rate/Area] [place] Comment on above: Average GFR for <20 years old not available. Chronic Kidney Disease: <60 mL/min/1.73sq m Kidney failure: <15 mL/min/1.73sq m eGFR calculated using average adult body mass. Additional eGFR calculator available at: http://www.[employer]/multiple_crcl_2012.htm Glucose [Mass/Vol] 90 mg/dL 60 - 100 mg/dL [place] Interpretation and review of laboratory results Abnormal [place] Potassium [Moles/Vol] 3.9 mmol/L 3.6 - 4.9 mmol/L [place] Protein [Mass/Vol] 8.7 g/dL High 6 - 8 g/dL [place] Sodium [Moles/Vol] 140 mmol/L 135 - 144 mmol/L [place] Urea nitrogen [Mass/Vol] 9 mg/dL 5 - 18 mg/dL [place] HCG Qualitative, Serumon hCG Qual Negative NEGATIVE [place] Comment on above: Specimens with hCG l evels near the threshold of the test (25 mIU/mL) may give a negative or indeterminate result. In such cases, another test should be performed with a new specimen in 48-72 hours. If early is suspected clinically in this setting, correlation with quantitative serum b-hCG level is suggested. [employer] has confirmed the use of plasma for this test. This has not been cleared or approved by the U.S. Food and Drug Administration. The FDA has determined that such clearance is not necessary. Otheron 01-12-2019 Immature granulocytes (Bld) [#/Vol] NOT REPORTED [facility] [place], [place] HCG QUALITATIVE, URINEon HCG ( test) Ql (U) Negative [facility] Otheron 12-18-2018 Interpretation and review of laboratory results Abnormal [facility] URINALYSIS, MACROon 12-19-19 19 Bilirubin Ql (U) Negative NEGATIVE [facility] Clarity (U) CLEAR CLEAR [facility] Color (U) YELLOW YELLOW [facility] Glucose Test strip (U) [Mass/Vol] Negative NEGATIVE mg/dl [facility] Hemoglobin Ql (U) Negative NEGATIVE [facility] Ketones (U) [Mass/Vol] Negative NEGATIVE mg/dl [facility] Leukocyte esterase Test strip Ql (U) Negative NEGATIVE [facility] Nitrite Ql (U) Negative NEGATIVE [facility] pH (U) 7.0 [pH] [facility] Protein Ql (U) TRACE Abnormal NEGATIVE mg/dl [facility] Specific gravity (U) [Rel density] 1.025 [facility] Urobilinogen (U) [Mass/Vol] 0.2 [facility] URINE HCG QUALon 12-18-2018 Beta HCG ( test) Ql (U) Negative Normal [facility] URINE MACROSCOPICon 12-19-19 19 Bilirubin Ql (U) Negative Normal NEGATIVE [facility] Clarity (U) CLEAR Normal CLEAR [facility] Color (U) YELLOW Normal YELLOW [facility] Glucose Ql (U) Negative Normal NEGATIVE [facility] pH (U) 7.0 [pH] Normal 5.0-7.0 [facility] Protein (U) [Mass/Vol] TRACE Abnormal NEGATIVE [facility] URINE HEMOGLOBIN Negative Normal NEGATIVE [facility] URINE KETONE Negative Normal NEGATIVE [facility] URINE LEUKOTEST Negative Normal NEGATIVE [facility] URINE NITRATES Negative Normal NEGATIVE [facility] URINE SPEC GRAVITY 1.025 Normal 1.010-1.025 [facility] Urobilinogen Qn (U) 0.2 {Manuel'U}/dL Normal 0.2-1.0 [facility] URINE MICROSCOPICon 12-19-19 19 Bacteria LM.HPF (Urine sed) [#/Area] TRACE Abnormal NEGATIVE [facility] Casts LM.LPF (Urine sed) [#/Area] NONE Normal NONE [facility] CRYSTAL NONE Normal NONE [facility] Epithelial cells LM.HPF (Urine sed) [#/Area] 10 TO 20 Normal [facility] Mucus Ql (Urine sed) Negative Normal NEGATIVE [facility] RBC (U) [#/Vol] Negative Normal NEGATIVE [facility] URINE COMMENT CULTURE CRITERIA NOT MET, NO CULTURE PERFORMED. Normal [facility] WBC (U) [#/Vol] 1 TO 5 Normal NEGATIVE [facility] Bacteria LM.HPF (Urine sed) [#/Area] TRACE Abnormal NEGATIVE [facility] Casts LM.LPF (Urine sed) [#/Area] NONE NONE /LPF [facility] Crystals LM Nom (Urine sed) NONE NONE [facility] Epithelial cells LM Ql (Urine sed) 10 TO 20 /HPF [facility] Mucus Ql (Urine sed) Negative NEGATIVE [facility] RBC LM.HPF (Urine sed) [#/Area] Negative NEGATIVE /HPF [facility] Urine sediment comments LM Vinnie (Urine sed) CULTURE CRITERIA NOT MET, NO CULTURE PERFORMED. [facility] WBC LM.HPF (Urine sed) [#/Area] 1 TO 5 NEGATIVE /HPF [facility] Strep Screen Group A Throato n 12-16-2018 S. pyogenes Ag IA Ql (Unsp spec) Rapid Strep A negative. A negative Rapid Group A Strep Screen result does not rule out the possibility of Group A Streptococci in the specimen. The [place] [employer] recommends confirmation testing. Therefore, a Group A Strep DNA test will be performed. [place] Special Requests NOT REPORTED [place] Specimen Description .THRO[place] XR CHEST STANDARD (2 VW)on Negative chest. [place] EXAM: XR CHEST (2 VW) HISTORY: Reason for exam:->cough COMPARISON: None. TECHNIQUE: 2 views chest FINDINGS: Heart size normal. Lungs clear. Bony thorax and upper abdomen normal. [place], Mhpn Incoming Radiant Results From [employer] - 12/16/2018 5:28 PM EDT EXAM: XR CHEST (2 VW) HISTORY: Reason for exam:->cough COMPARISON: None. TECHNIQUE: 2 views chest FINDINGS: Heart size normal. Lungs clear. Bony thorax and upper abdomen normal. IMPRESSION: Negative chest. [facility], [place] Vital Signs Date Time Vital Sign Value Performing Clinician Shadi ag 04-06-2024 09:13-0500 Body weight 73.66 kg Meir Jamal DO Work Phone: [facility] 04-06-2024 09:13-0500 Diastolic blood pressure 74 mm[Hg] Meir Jamal DO Work Phone: [facility] 04-06-2024 09:13-0500 Systolic blood pressure 120 mm[Hg] Meir Jamal DO Work Phone: [facility] 03-06-2024 10:11-0500 Body weight 72.18 kg eJwell MATTHEWS Work Phone: [facility] 03-06-2024 10:11-0500 Diastolic blood pressure 64 mm[Hg] Jewell MATTHEWS Work Phone: [facility] 03-06-2024 10:11-0500 Systolic blood pressure 110 mm[Hg] Jewell MATTHEWS Work Phone: [facility] 02-21-2024 10:13-0500 Body height 160 cm Doyle Amaro MD Work Phone: [facility] 02-21-2024 10:13-0500 Body mass index (BMI) [Ratio] 28.52 kg/m2 Doyle Amaro MD Work Phone: [facility] 02-21-2024 10:13-0500 Body weight 73.03 kg Doyle Amaro MD Work Phone: [facility] 02-21-2024 10:13-0500 Diastolic blood pressure 70 mm[Hg] Doyle Amaro MD Work Phone: [facility] 02-21-2024 10:13-0500 Systolic blood pressure 105 mm[Hg] Doyle Amaro MD Work Phone: [facility] 02-07-2024 11:12-0500 Body mass index (BMI) [Ratio] 28.63 kg/m2 Malka Allison PERFORMANCE MANAGEMENT CONSULTANT-INSPECTOR [employer] Work Phone: [facility] [address] [facility] 02-07-2024 11:12-0500 Body weight 73.3 kg Malka Allison PERFORMANCE MANAGEMENT CONSULTANT-INSPECTOR [employer] Work Phone: [facility] [address] [facility] 02-07-2024 11:12-0500 Diastolic blood pressure 60 mm[Hg] Malka Allison PERFORMANCE MANAGEMENT CONSULTANT-INSPECTOR [employer] Work Phone: [facility] 02-07-2024 11:12-0500 Systolic blood pressure 108 mm[Hg] Malka Allison PERFORMANCE MANAGEMENT CONSULTANT-INSPECTOR [employer] Work Phone: [facility] 01-10-2024 09:44-0500 Body mass index (BMI) [Ratio] 27.56 kg/m2 Nahed Stewart MD Work Phone: [facility] [address] [facility] 01-10-2024 09:44-0500 Body weight 70.58 kg Nahed Stewart MD Work Phone: [facility] [address] [facility] 01-10-2024 09:44-0500 Diastolic blood pressure 60 mm[Hg] Nahed Stewart MD Work Phone: [facility] 01-10-2024 09:44-0500 Systolic blood pressure 100 mm[Hg] Nahed Stewart MD Work Phone: [facility] [address] [facility] 12-13-2023 09:17-0400 Body mass index (BMI) [Ratio] 26.04 kg/m2 Nahed Stewart MD Work Phone: [facility] [address] [facility] 12-13-2023 09:17-0400 Body weight 66.68 kg Nahed Stewart MD Work Phone: [facility] [address] [facility] 12-13-2023 09:17-0400 Diastolic blood pressure 60 mm[Hg] Nahed Stewart MD Work Phone: [facility] 12-13-2023 09:17-0400 Systolic blood pressure 100 mm[Hg] Nahed Stewart MD Work Phone: [facility] 11-11-2023 13:33-0400 Body mass index (BMI) [Ratio] 24.98 kg/m2 Nahed Stewart MD Work Phone: [facility] 11-11-2023 13:33-0400 Body weight 63.96 kg Nahed Stewart MD Work Phone: [facility] 11-11-2023 13:33-0400 Diastolic blood pressure 56 mm[Hg] Nahed Stewart MD Work Phone: [facility] 11-11-2023 13:33-0400 Systolic blood pressure 112 mm[Hg] Nahed Stewart MD Work Phone: [facility] 10-14-2023 13:27-0400 Body height 160 cm Doyle Amaro MD Work Phone: [facility] 10-14-2023 13:27-0400 Body mass index (BMI) [Ratio] 24.62 kg/m2 Doyle Amaro MD Work Phone: [facility] 10-14-2023 13:27-0400 Body weight 63.05 kg Doyle Amaro MD Work Phone: [facility] 10-14-2023 13:27-0400 Diastolic blood pressure 62 mm[Hg] Doyle Amaro MD Work Phone: [facility] 10-14-2023 13:27-0400 Systolic blood pressure 120 mm[Hg] Doyle Amaro MD Work Phone: [facility] 09-26-2023 19:52-0400 Diastolic blood pressure 86 mm[Hg] Justin Hewitt [facility] 09-26-2023 19:52-0400 Heart rate 96 /min Justin Hewitt [facility] 09-26-2023 19:52-0400 Mean blood pressure 97 mm[Hg] Justin Hewitt [facility] 09-26-2023 19:52-0400 Respiratory rate 23 /min Justin Hewitt [facility] 09-26-2023 19:52-0400 SaO2% (BldA) [Mass fraction] 99 % Justin Kash [facility] 09-26-2023 19:52-0400 Systolic blood pressure 120 mm[Hg] Justin Kash [facility] 09-26-2023 18:46-0400 Diastolic blood pressure 81 mm[Hg] Justin Kash [facility] 09-26-2023 18:46-0400 Heart rate 89 /min Justin Kash [facility] 09-26-2023 18:46-0400 Mean blood pressure 96 mm[Hg] Justin Kash [facility] 09-26-2023 18:46-0400 Respiratory rate 18 /min Justin Kash [facility] 09-26-2023 18:46-0400 SaO2% (BldA) [Mass fraction] 98 % Justin Kash [facility] 09-26-2023 18:46-0400 Systolic blood pressure 126 mm[Hg] Justin Kash [facility] 09-26-2023 18:00-0400 Heart rate 97 /min Justin Kash [facility] 09-26-2023 18:00-0400 Mean blood pressure 94 mm[Hg] Justin Kash [facility] 09-26-2023 18:00-0400 SaO2% (BldA) [Mass fraction] 100 % Justin Kash [facility] 09-26-2023 18:00-0400 Systolic blood pressure 121 mm[Hg] Justin Kash [facility] 09-26-2023 16:57-0400 Body temperature 98.96 [degF] Justin Hewitt [facility] 09-26-2023 16:57-0400 Heart rate 94 /min Justin Hewitt [facility] 09-26-2023 16:57-0400 Respiratory rate 18 /min Justin Hewitt [facility] 09-26-2023 16:42-0400 Body temperature 98.6 [degF] Justin Hewitt [facility] 09-26-2023 16:42-0400 Heart rate 106 /min Justin Hewitt [facility] 09-26-2023 16:42-0400 Respiratory rate 18 /min Justin Hewitt [facility] 09-24-2023 13:28-0400 Body height 160 cm Avg Gurjit Gal [id number] [facility] 09-24-2023 13:28-0400 Body mass index (BMI) [Ratio] 23.91 kg/m2 Avg Gurjit Gal [id number] [facility] 09-24-2023 13:28-0400 Body weight 61.24 kg Avg Gurjit Gal [id number] [facility] 09-24-2023 13:28-0400 Diastolic blood pressure 68 mm[Hg] Avg Gurjit Gal [id number] [facility] 09-24-2023 13:28-0400 Systolic blood pressure 112 mm[Hg] Avg Gurjit Gal [id number] [facility] 09-16-2023 08:37-0400 Body temperature 98.24 [degF] [facility] 09-16-2023 08:37-0400 Diastolic blood pressure 78 mm[Hg] [facility] 09-16-2023 08:37-0400 Heart rate 76 /min [facility] 09-16-2023 08:37-0400 Respiratory rate 18 /min [facility] 09-16-2023 08:37-0400 SaO2% (BldA) [Mass fraction] 100 % [facility] 09-16-2023 08:37-0400 Systolic blood pressure 126 mm[Hg] [facility] 09-13-2023 10:56-0400 Blood Pressure Location Pari Underwood [facility] 09-13-2023 10:56-0400 Body temperature 97.88 [degF] Pari Underwood [facility] 09-13-2023 10:56-0400 Diastolic blood pressure 68 mm[Hg] Pari Underwood [facility] 09-13-2023 10:56-0400 Heart rate 74 /min Pari Underwood [facility] 09-13-2023 10:56-0400 Respiratory rate 18 /min Pari Underwood [facility] 09-13-2023 10:56-0400 SaO2% (BldA) [Mass fraction] 98 % Pari Underwood [facility] 09-13-2023 10:56-0400 Systolic blood pressure 110 mm[Hg] Pari Underwood [facility] 08-13-2023 14:20-0400 Blood Pressure Location Pari Underwood [facility] 08-13-2023 14:20-0400 Body temperature 97.88 [degF] Pari Underwood [facility] 08-13-2023 14:20-0400 Diastolic blood pressure 80 mm[Hg] Paridominick BazziUnderwood [facility] 08-13-2023 14:20-0400 Heart rate 88 /min Pari Bazzizier [facility] 08-13-2023 14:20-0400 Respiratory rate 16 /min Paridominick BazziUnderwood [facility] 08-13-2023 14:20-0400 SaO2% (BldA) [Mass fraction] 99 % Pari Bazzizier [facility] 08-13-2023 14:20-0400 Systolic blood pressure 122 mm[Hg] Pari Underwood [facility] 08-04-2023 14:57-0400 Body mass index (BMI) [Ratio] 22.96 kg/m2 Nahed Stewart MD Work Phone: [facility] 08-04-2023 14:57-0400 Body weight 58.79 kg Nahed Stewart MD Work Phone: [facility] 08-04-2023 14:57-0400 Diastolic blood pressure 62 mm[Hg] Nahed Stewart MD Work Phone: [facility] 08-04-2023 14:57-0400 Systolic blood pressure 120 mm[Hg] Nahed Stewart MD Work Phone: [facility] 04-16-2023 14:16-0500 Body mass index (BMI) [Ratio] 20.87 kg/m2 Nahed Stewart MD Work Phone: [facility] 04-16-2023 14:16-0500 Body weight 53.43 kg aNhed Stewart MD Work Phone: [facility] 04-16-2023 14:16-0500 Diastolic blood pressure 76 mm[Hg] Nahed Stewart MD Work Phone: [facility] 04-16-2023 14:16-0500 Systolic blood pressure 118 mm[Hg] Nahed Stewart MD Work Phone: [employer] 10-23-2022 09:25-0400 Body height 160 cm Nahed Stewart MD Work Phone: [facility] 10-23-2022 09:25-0400 Body mass index (BMI) [Ratio] 21.33 kg/m2 Nahed Stewart MD Work Phone: [facility] 10-23-2022 09:25-0400 Body weight 54.61 kg Nahed Stewart MD Work Phone: [facility] 10-23-2022 09:25-0400 Diastolic blood pressure 68 mm[Hg] Nahed Stewart MD Work Phone: [facility] 10-23-2022 09:25-0400 Systolic blood pressure 100 mm[Hg] Nahed Stewart MD Work Phone: [facility] 09-01-2022 13:16-0400 Body mass index (BMI) [Ratio] 21.36 kg/m2 Nahed Stewart MD Work Phone: [facility] 09-01-2022 13:16-0400 Body weight 54.7 kg Nahed Stewart MD Work Phone: [facility] 09-01-2022 13:16-0400 Diastolic blood pressure 66 mm[Hg] Nahed Stewart MD Work Phone: [facility] 09-01-2022 13:16-0400 Systolic blood pressure 120 mm[Hg] Nahed Stewart MD Work Phone: [facility] 06-08-2022 13:20-0400 Body temperature 98.71 [degF] [facility] 06-08-2022 13:20-0400 Diastolic blood pressure 70 mm[Hg] [facility] 06-08-2022 13:20-0400 Heart rate 82 /min [employer] [facility] 06-08-2022 13:20-0400 Respiratory rate 18 /min [facility] 06-08-2022 13:20-0400 SaO2% (BldA) [Mass fraction] 97 % [facility] 06-08-2022 13:20-0400 Systolic blood pressure 117 mm[Hg] [facility] 04-22-2022 09:40-0500 Body mass index (BMI) [Ratio] 21.01 kg/m2 Nahed Stewart MD Work Phone: [facility] 04-22-2022 09:40-0500 Body weight 53.8 kg Nahed Stewart MD Work Phone: [facility] 04-22-2022 09:40-0500 Diastolic blood pressure 62 mm[Hg] Nahed Stewart MD Work Phone: [facility] 04-22-2022 09:40-0500 Systolic blood pressure 110 mm[Hg] Nahed Stewart MD Work Phone: [facility] 03-20-2022 14:35-0500 Body mass index (BMI) [Ratio] 22.21 kg/m2 Nahed Stewart MD Work Phone: [facility] 03-20-2022 14:35-0500 Body weight 56.88 kg Nahed Stewart MD Work Phone: [facility] 03-20-2022 14:35-0500 Diastolic blood pressure 70 mm[Hg] Nahed Stewart MD Work Phone: [facility] 03-20-2022 14:35-0500 Systolic blood pressure 118 mm[Hg] Nahed Stewart MD Work Phone: [facility] 10-24-2021 14:45-0400 Body height 160 cm Nahed Stewart MD Work Phone: [facility] 10-24-2021 14:45-0400 Body mass index (BMI) [Ratio] 23.03 kg/m2 Nahed Stewart MD Work Phone: [facility] 10-24-2021 14:45-0400 Body weight 58.97 kg Nahed Stewart MD Work Phone: [facility] 10-24-2021 14:45-0400 Diastolic blood pressure 62 mm[Hg] Nahed Stewart MD Work Phone: [facility] 10-24-2021 14:45-0400 Systolic blood pressure 120 mm[Hg] Nahed Stewart MD Work Phone: [facility] 08-05-2021 09:20-0400 Body mass index (BMI) [Ratio] 28.09 kg/m2 Nahed Stewart MD Work Phone: [facility] 08-05-2021 09:20-0400 Body weight 71.94 kg Nahed Stewart MD Work Phone: [facility] 08-05-2021 09:20-0400 Diastolic blood pressure 56 mm[Hg] Nahed Stewart MD Work Phone: [facility] 08-05-2021 09:20-0400 Systolic blood pressure 98 mm[Hg] Nahed Stewart MD Work Phone: [facility] 07-28-2021 09:03-0400 Body height 160 cm Doyle Amaro MD Work Phone: [facility] 07-28-2021 09:03-0400 Body mass index (BMI) [Ratio] 27.46 kg/m2 Doyle Amaro MD Work Phone: [facility] 07-28-2021 09:03-0400 Body weight 70.31 kg Doyle Amaro MD Work Phone: [facility] 07-28-2021 09:03-0400 Diastolic blood pressure 64 mm[Hg] Doyle Amaro MD Work Phone: [facility] 07-28-2021 09:03-0400 Systolic blood pressure 140 mm[Hg] Doyle Amaro MD Work Phone: [facility] 07-14-2021 09:00-0400 Body height 160 cm Malka CURTIS Work Phone: [facility] 07-14-2021 09:00-0400 Body mass index (BMI) [Ratio] 26.75 kg/m2 Malka CURTIS Work Phone: [facility] 07-14-2021 09:00-0400 Body weight 68.49 kg Malka Allison PERFORMANCE MANAGEMENT CONSULTANT-INSPECTOR SUBASSEMBLY Work Phone: [facility] 07-14-2021 09:00-0400 Diastolic blood pressure 62 mm[Hg] Malka Allison PERFORMANCE MANAGEMENT CONSULTANT-INSPECTOR SUBASSEMBLY Work Phone: [facility] 07-14-2021 09:00-0400 Systolic blood pressure 106 mm[Hg] Malka Allison PERFORMANCE MANAGEMENT CONSULTANT-INSPECTOR SUBASSEMBLY Work Phone: [facility] 06-30-2021 09:33-0400 Body height 160 cm Doyle Amaro MD Work Phone: [facility] 06-30-2021 09:33-0400 Body mass index (BMI) [Ratio] 26.04 kg/m2 Doyle Amaro MD Work Phone: [facility] 06-30-2021 09:33-0400 Body weight 66.68 kg Doyle Amaro MD Work Phone: [facility] 06-30-2021 09:33-0400 Diastolic blood pressure 64 mm[Hg] Doyle Amaro MD Work Phone: [facility] 06-30-2021 09:33-0400 Systolic blood pressure 102 mm[Hg] Doyle Amaro MD Work Phone: [facility] 06-16-2021 09:08-0400 Body height 160 cm Malkaignacia Allison PERFORMANCE MANAGEMENT CONSULTANT-INSPECTOR SUBASSEMBLY Work Phone: [facility] 06-16-2021 09:08-0400 Body mass index (BMI) [Percentile] Per age and sex 84.17 % Malka Allison PERFORMANCE MANAGEMENT CONSULTANT-INSPECTOR SUBASSEMBLY Work Phone: [facility] 06-16-2021 09:08-0400 Body mass index (BMI) [Ratio] 25.86 kg/m2 Malka Allison PERFORMANCE MANAGEMENT CONSULTANT-INSPECTOR SUBASSEMBLY Work Phone: [facility] 06-16-2021 09:08-0400 Body weight 66.22 kg Malka Allison PERFORMANCE MANAGEMENT CONSULTANT-INSPECTOR SUBASSEMBLY Work Phone: [employer] [facility] 06-16-2021 09:08-0400 Diastolic blood pressure 64 mm[Hg] Malka Allison PERFORMANCE MANAGEMENT CONSULTANT-INSPECTOR SUBASSEMBLY Work Phone: [facility]fanli [facility] 06-16-2021 09:08-0400 Systolic blood pressure 106 mm[Hg] Malka Allison PERFORMANCE MANAGEMENT CONSULTANT-INSPECTOR SUBASSEMBLY Work Phone: [facility] 06-02-2021 09:07-0400 Body mass index (BMI) [Percentile] Per age and sex 79.15 % Nahed Stewart MD Work Phone: [place] [employer] [facility] 06-02-2021 09:07-0400 Body mass index (BMI) [Ratio] 24.8 kg/m2 Nahed Stewart MD Work Phone: [place] [employer] [facility] 06-02-2021 09:07-0400 Body weight 63.5 kg Nahed Stewart MD Work Phone: [place] [employer] [facility] 06-02-2021 09:07-0400 Diastolic blood pressure 56 mm[Hg] Nahed Stewart MD Work Phone: [employer] [facility] 06-02-2021 09:07-0400 Systolic blood pressure 100 mm[Hg] Nahed Stewart MD Work Phone: [place] [employer] [facility] 05-13-2021 10:08-0500 Body height 160 cm Malka Allison PERFORMANCE MANAGEMENT CONSULTANT-INSPECTOR SUBASSEMBLY Work Phone: [employer] [facility] 05-13-2021 10:08-0500 Body mass index (BMI) [Percentile] Per age and sex 72.35 % Malka Allison PERFORMANCE MANAGEMENT CONSULTANT-INSPECTOR SUBASSEMBLY Work Phone: [employer] [facility] 05-13-2021 10:08-0500 Body mass index (BMI) [Ratio] 23.74 kg/m2 Malka Allison PERFORMANCE MANAGEMENT CONSULTANT-INSPECTOR SUBASSEMBLY Work Phone: [employer] [facility] 05-13-2021 10:08-0500 Body weight 60.78 kg Malka Allison PERFORMANCE MANAGEMENT CONSULTANT-INSPECTOR SUBASSEMBLY Work Phone: [employer] [facility] 05-13-2021 10:08-0500 Diastolic blood pressure 62 mm[Hg] Malka Allison PERFORMANCE MANAGEMENT CONSULTANT-INSPECTOR SUBASSEMBLY Work Phone: [employer] [facility] 05-13-2021 10:08-0500 Systolic blood pressure 104 mm[Hg] Malka Allison PERFORMANCE MANAGEMENT CONSULTANT-INSPECTOR SUBASSEMBLY Work Phone: [employer] [facility] 04-22-2021 14:24-0500 Body mass index (BMI) [Percentile] Per age and sex 72.49 % Nahed Stewart MD Work Phone: [employer] [facility] 04-22-2021 14:24-0500 Body mass index (BMI) [Ratio] 23.74 kg/m2 Nahed Stewart MD Work Phone: [employer] 04-22-2021 14:24-0500 Body weight 60.78 kg Nahed Stewart MD Work Phone: [employer] 04-22-2021 14:24-0500 Diastolic blood pressure 70 mm[Hg] Nahed Stewart MD Work Phone: [employer] 04-22-2021 14:24-0500 Systolic blood pressure 112 mm[Hg] Nahed Stewart MD Work Phone: [employer] 03-13-2021 10:20-0500 Body height 160 cm Doyle Amaro MD Work Phone: [employer] 03-13-2021 10:20-0500 Body mass index (BMI) [Percentile] Per age and sex 59.91 % Doyle Amaro MD Work Phone: [employer] 03-13-2021 10:20-0500 Body mass index (BMI) [Ratio] 22.32 kg/m2 Doyle Amaro MD Work Phone: [employer] [facility] 03-13-2021 10:20-0500 Body weight 57.15 kg Doyle Amaro MD Work Phone: [employer] [facility] 03-13-2021 10:20-0500 Diastolic blood pressure 76 mm[Hg] Doyle Amaro MD Work Phone: [facility] [address] [facility] 03-13-2021 10:20-0500 Systolic blood pressure 122 mm[Hg] Doyle Amaro MD Work Phone: [facility] 02-06-2021 09:17-0500 Body height 160 cm Doyle Amaro MD Work Phone: [facility] 02-06-2021 09:17-0500 Body mass index (BMI) [Percentile] Per age and sex 56.34 % Doyle Amaro MD Work Phone: [facility] 02-06-2021 09:17-0500 Body mass index (BMI) [Ratio] 21.97 kg/m2 Doyle Amaro MD Work Phone: [facility] 02-06-2021 09:17-0500 Body weight 56.25 kg Doyle Amaro MD Work Phone: [facility] 02-06-2021 09:17-0500 Diastolic blood pressure 70 mm[Hg] Doyle Aamro MD Work Phone: [facility] 02-06-2021 09:17-0500 Systolic blood pressure 112 mm[Hg] Doyle Amaro MD Work Phone: [facility] 01-14-2021 09:45-0500 Body height 160 cm Avg Gurjit Gal [id number] [facility] 01-14-2021 09:45-0500 Body mass index (BMI) [Percentile] Per age and sex 60.4 % Avg Gurjit Gal [id number] [facility] 01-14-2021 09:45-0500 Body mass index (BMI) [Ratio] 22.32 kg/m2 Avg Gurjit Gal [id number] [facility] 01-14-2021 09:45-0500 Body weight 57.15 kg Avg Gurjit Gal [id number] [facility] 01-14-2021 09:45-0500 Diastolic blood pressure 72 mm[Hg] Avg Gurjit Gal [id number] [facility] 01-14-2021 09:45-0500 Systolic blood pressure 112 mm[Hg] Avg Gurjit Gal [id number] Nurse [facility] 09-28-2019 08:35-0400 BP Diastolic 68 mm[Hg] [facility] [place] 09-28-2019 08:35-0400 BP Systolic 140 mm[Hg] [facility] [place] 09-28-2019 08:35-0400 Pulse (Heart Rate) 92 /min [facility], [place] 09-28-2019 08:35-0400 Pulse Oximetry 99 % [facility], [place] 09-28-2019 08:35-0400 Respiratory Rate 16 /min [facility], [place] 09-28-2019 06:54-0400 Body Temperature 98.29 [degF] [facility], [place] 09-27-2019 22:49-0400 BMI (Body Mass Index) 21.43 kg/m2 [facility] [place] 09-27-2019 22:49-0400 Body weight 54.88 kg [facility], [place] 09-27-2019 22:49-0400 Height 160 cm [facility], [place] 05-19-2019 19:55-0400 BP Diastolic 59 mm[Hg] [facility], [place] 05-19-2019 19:55-0400 BP Systolic 114 mm[Hg] [facility], [place] 05-19-2019 19:55-0400 Pulse (Heart Rate) 66 /min [facility], [place] 05-19-2019 19:55-0400 Pulse Oximetry 100 % [facility], [place] 05-19-2019 19:55-0400 Respiratory Rate 18 /min [facility], [place] 05-19-2019 18:36-0400 BMI (Body Mass Index) 21.97 kg/m2 [facility], [place] 05-19-2019 18:36-0400 Body Temperature 98.29 [degF] [facility], [place] 05-19-2019 18:36-0400 Body weight 56.25 kg Veselin Tanmay [facility] [place] 05-19-2019 18:36-0400 Height 160 cm Veselin Tanmay [facility] [place] 03-08-2019 18:31-0500 Body temperature 98.1 [degF] Peter Petty MD Work Phone: [facility] [facility] Work Phone: 03-08-2019 18:31-0500 Body weight 57.15 kg Peter Petty MD Work Phone: [facility] Work Phone: 03-08-2019 18:31-0500 Diastolic blood pressure 90 mm[Hg] Peter Petty MD Work Phone: [facility] Work Phone: 03-08-2019 18:31-0500 Heart rate 86 /min Peter Petty MD Work Phone: [facility] Work Phone: 03-08-2019 18:31-0500 Respiratory rate 20 /min Peter Petty MD Work Phone: [facility] Work Phone: 03-08-2019 18:31-0500 SaO2% (BldA) [Mass fraction] 100 % Peter Petty MD Work Phone: [facility] Work Phone: 03-08-2019 18:31-0500 Systolic blood pressure 139 mm[Hg] Peter Petty MD Work Phone: [facility] Work Phone: 01-12-2019 23:01-0500 Pulse Oximetry 99 % Veselin Tanmay [facility] [place] 01-12-2019 22:49-0500 BP Diastolic 80 mm[Hg] Veselin Tanmay [facility] [place] 01-12-2019 22:49-0500 BP Systolic 107 mm[Hg] Veselin Tanmay [facility] [place] 01-12-2019 22:17-0500 Body Temperature 97.59 [degF] [facility], [place] 01-12-2019 22:17-0500 Body weight 55.[address] [facility], [place] 01-12-2019 22:17-0500 Pulse (Heart Rate) 64 /min [facility], [place] 01-12-2019 22:17-0500 Respiratory Rate 16 /min [facility], [place] 12-18-2018 14:52-0400 Height 160 cm [facility] 12-18-2018 14:47-0400 Body Temperature 99.81 [degF] [facility] 12-18-2018 14:47-0400 BP Diastolic 62 mm[Hg] [facility] 12-18-2018 14:47-0400 BP Systolic 108 mm[Hg] [facility] 12-18-2018 14:47-0400 Pulse (Heart Rate) 82 /min [facility] 12-18-2018 14:47-0400 Pulse Oximetry 96 % [facility] 12-18-2018 14:47-0400 Respiratory Rate 18 /min [facility] 12-16-2018 16:47-0400 BP Diastolic 46 mm[Hg] [place] 12-16-2018 16:47-0400 BP Systolic 94 mm[Hg] [place] 12-16-2018 16:46-0400 Body Temperature 99.19 [degF] [facility], [place] 12-16-2018 16:46-0400 Body weight 55.2 kg [place] 12-16-2018 16:46-0400 Pulse (Heart Rate) 84 /min [place] 12-16-2018 16:46-0400 Pulse Oximetry 100 % [place] , [place] 12-16-2018 16:46-0400 Respiratory Rate 16 /min [facility], [place] Encounters Encounter Date Encounter Type Care Provider Facility Start: 04-06-2024 End: 04-06-2024 Bamboo flowsheet Meir Jamal DO Work Phone: [facility] Start: 04-06-2024 End: 04-06-2024 Bamboo flowsheet Meir Jamal DO Work Phone: [facility] Start: 04-06-2024 End: 04-06-2024 Clinisync Result Encounter Meir Ajmal DO Work Phone: [facility] External Department Unsolicited [...] Doyle Amaro MD Work Phone: [facility] VALIDATION MANAGER Comment on above: Encounter for superv ision of other normal , third trimester (Primary Dx); 30 weeks gestation of Start: 02-21-2024 ambulatory DOYLE AMARO [facility] Start: 02-18-2024 End: 02-18-2024 Clinisync Result Encounter Meir Jamal DO Work Phone: [facility] External [facility] Unsolicited Start: 02-18-2024 End: 02-18-2024 Clinisync Result Encounter Meir Jamal DO Work Phone: [facility] Unsolicited Start: 02-07-2024 End: 02-07-2024 Subsequent care visit Malka CURTIS Work Phone: [facility] VALIDATION MANAGER Comment on above: Encounter for superv ision of other normal , third trimester (Primary Dx); 28 weeks gestation of Start: 02-07-2024 [facility] Start: 01-25-2024 End: 01-25-2024 ambulatory APPLIANCE SERVICE TECHNICIANMarques Fuentes Facility:FT [facility] Start: 01-24-2024 ambulatory Justinminh Hewitt Facility:F [facility] Start: 01-10-2024 End: 01-10-2024 Subsequent care visit Nahed Stewart MD Work Phone: [facility] VALIDATION MANAGER Comment on above: Encounter for superv ision of other normal , second trimester (Primary Dx) Start: 01-10-2024 [facility] Start: 12-13-2023 End: 12-13-2023 Subsequent care visit Nahed Stewart MD Work Phone: [facility] VALIDATION MANAGER Comment on above: Encounter for superv ision of other normal in second trimester (Primary Dx) Start: 12-13-2023 [facility] Start: 12-13-2023 End: 12-13-2023 Subsequent hospital visit by physician Nahed Stewart MD Work Phone: [facility] Start: 11-11-2023 End: 11-11-2023 Subsequent care visit Nahed Stewart MD Work Phone: [facility] VALIDATION MANAGER Comment on above: Encounter for superv ision of other normal in first trimester (Primary Dx); 16 weeks gestation of Start: 11-11-2023 End: 11-11-2023 Subsequent hospital visit by physician Doyle Amaro MD Work Phone: [facility] Start: 11-11-2023 [facility] NAHED STEWART [facility] Start: 10-14-2023 End: 10-14-2023 Subsequent care visit Doyle Amaro MD Work Phone: [facility] VALIDATION MANAGER Comment on above: Encounter for superv ision of other normal in first trimester (Primary Dx); Hx of herpes genitalis; Family history of diabetes mellitus in sister; 12 weeks gestation of Start: 10-14-2023 ambulatory DOYLE AMARO [facility] Start: 09-26-2023 End: 09-26-2023 Emergency department patient visit Justin Saleh Kash [facility] Start: 09-24-2023 End: 09-24-2023 Office outpatient visit 5 minutes Nahed Stewart MD Work Phone: [facility] VALIDATION MANAGER Comment on above: Encounter for superv ision of other normal in first trimester (Primary Dx); 9 weeks gestation of ; Family history of diabetes mellitus in sister; HSV infection; Major depressive disorder, recurrent episode, moderate Start: 09-24-2023 ambulatory NAHED Cowart DESIREE [facility] Start: 09-16-2023 End: 09-16-2023 Emergency department patient visit Jl Medina [facility] Start: 09-13-2023 End: 09-13-2023 ambulatory Pari Underwood Facility:[facility] Start: 09-13-2023 End: 09-13-2023 Patient encounter procedure Pari Underwood [facility] Start: 09-08-2023 ambulatory Pari Underwood Facili ty: [facility] Start: 08-30-2023 End: 08-30-2023 Emergency department patient visit PARI CHET [facility] Start: 08-13-2023 End: 08-13-2023 ambulatory Pari Underwood Facility:[facility] Start: 08-13-2023 End: 08-13-2023 Patient encounter procedure Pari Underwood [facility] Start: 08-04-2023 End: 08-04-2023 Office outpatient visit 15 minutes Nahed Stewart MD Work Phone: [facility] VALIDATION MANAGER Comment on above: Vaginal discharge (P rimary Dx) Start: 08-04-2023 ambulatory [facility] Start: 07-28-2023 ambulatory Pari Underwood Facility: [facility] Start: 04-16-2023 End: 04-16-2023 Office outpatient visit 15 minutes Nahed Stewart MD Work Phone: [facility] VALIDATION MANAGER Comment on above: STD exposure (Primar y Dx) Start: 04-16-2023 [facility] Start: 10-24-2022 End: 10-24-2022 Emergency department patient visit [facility] Start: 10-23-2022 [facility] Start: 10-23-2022 End: 10-23-2022 Patient encounter procedure Nahed Stewart MD Work Phone: [facility] Start: 10-23-2022 End: 10-23-2022 Periodic preventive med est patient 18-39 yrs Nahed Stewart MD Work Phone: [facility] VALIDATION MANAGER Comment on above: Annual physical exam (Primary Dx) Start: 09-01-2022 [facility] Start: 09-01-2022 End: 09-01-2022 Office outpatient visit 15 minutes Nahed Stewart MD Work Phone: [facility] VALIDATION MANAGER Comment on above: Mastitis (Primary Dx ) Start: 06-08-2022 End: 06-08-2022 Emergency department patient visit [facility] Start: 06-08-2022 End: 06-08-2022 Emergency department patient visit [facility] Start: 04-22-2022 [facility] Start: 04-22-2022 End: 04-22-2022 Office outpatient visit 15 minutes Nahed Stewart MD Work Phone: [facility] VALIDATION MANAGER Comment on above: depressio n (Primary Dx) Start: 03-20-2022 [facility] Start: 03-20-2022 End: 03-20-2022 Office outpatient visit 15 minutes Nahed Stewart MD Work Phone: [facility] VALIDATION MANAGER Comment on above: Anxiety (Primary Dx) Start: 03-13-2022 ambulatory [facility]HED [facility] Start: 10-24-2021 End: 10-24-2021 Office outpatient visit 15 minutes Nahed Stewart MD Work Phone: [facility] VALIDATION MANAGER Comment on above: Genital herpes simpl ex virus (HSV) infection in mother affecting Start: 08-05-2021 End: 08-05-2021 Subsequent care visit Nahed Stewart MD Work Phone: [facility] VALIDATION MANAGER Comment on above: Genital herpes simpl ex virus (HSV) infection in mother affecting (Primary Dx); Episodic cannabis use; LGSIL on Pap smear of cervix Start: 07-28-2021 End: 07-28-2021 Subsequent care visit Doyle Amaro MD Work Phone: [facility] VALIDATION MANAGER Comment on above: 36 weeks gestation o f (Primary Dx); Encounter for supervision of normal first in third trimester; Hx of herpes genitalis; Episodic cannabis use Start: 07-14-2021 End: 07-14-2021 Subsequent care visit Malka Allison PERFORMANCE MANAGEMENT CONSULTANT-INSPECTOR SUBASSEMBLY Work Phone: [facility] VALIDATION MANAGER Comment on above: Encounter for superv ision of normal first in third trimester (Primary Dx); 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 ; 34 weeks gestation of Start: 06-30-2021 End: 06-30-2021 Subsequent care visit Doyle Amaro MD Work Phone: [facility] VALIDATION MANAGER Comment on above: Encounter for superv ision of normal first in third trimester (Primary Dx); Hx of herpes genitalis; 32 weeks gestation of Start: 06-16-2021 End: 06-16-2021 Subsequent care visit Malka Allison PERFORMANCE MANAGEMENT CONSULTANT-INSPECTOR SUBASSEMBLY Work Phone: [facility] VALIDATION MANAGER Comment on above: Encounter for superv ision of normal first in third trimester (Primary Dx); 30 weeks gestation of Start: 06-10-2021 End: 06-10-2021 Subsequent hospital visit by physician Doyle Amaro MD Work Phone: [facility] Start: 06-02-2021 End: 06-02-2021 Subsequent care visit Nahed Stewart MD Work Phone: [employer] VALIDATION MANAGER Comment on above: 28 weeks gestation o f (Primary Dx); Episodic cannabis use; LGSIL on Pap smear of cervix Start: 05-13-2021 End: 05-13-2021 Subsequent care visit Malka CURTIS Work Phone: [employer] VALIDATION MANAGER Comment on above: Encounter for superv ision of normal first in second trimester (Primary Dx); 25 weeks gestation of Start: 04-22-2021 End: 04-22-2021 Subsequent care visit Nahed Stewart MD Work Phone: [employer] VALIDATION MANAGER Comment on above: LGSIL on Pap smear o f cervix; Episodic cannabis use Start: 04-22-2021 End: 04-22-2021 Subsequent hospital visit by physician Nahed Stewart MD Work Phone: [facility] Start: 03-13-2021 End: 03-13-2021 Subsequent care visit Doyle Amaro MD Work Phone: [employer] VALIDATION MANAGER Comment on above: Encounter for superv ision [...] care visit Doyle Amaro MD Work Phone: [employer] VALIDATION MANAGER Comment on above: Encounter for superv ision of normal first in first trimester (Primary Dx); Episodic cannabis use; Family history of diabetes mellitus in sister; Hx of bipolar disorder; 11 weeks gestation of ; 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 ; Rubella non-immune status, antepartum Start: 02-06-2021 End: 02-06-2021 Subsequent hospital visit by physician Doyle Amaro MD Work Phone: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
--- OUTSIDE RECORDS SUMMARY | 2024-04-13 20:14 | XMS_ITS | CCD ---
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 prescriptions and follow-up instructions: Follow-up Instructions: With: Address: When: Abdias Qureshi [address] [place] [address] [place], [facility] [address], [place] [address] [facility] (1) In 3 days 09/19/2023 With: Address: [...] opioids can be used to help relieve qholffpu-vb-ujcght pain and are often prescribed following a [...] your he (more content not included)... Normal [facility] Family Medicine Office/Clini c Noteon [...] follow-up appointment with her Dr. Nahed Stewart, sliver cutter tomorrow, during which her sliver cutter has agreed to maintain her current [...] advised to maintain close follow-up with the sliver cutter. 2. (Z34.90: Encounter for supervision of [...] with voice recognition artificial intelligence software, specifically CNZZ, Clipsure and or V2contact. Substitutions may have occurred due to the inherent limitations of voice recognition and artificial intelligence software. ATTESTATION: This note has been generated by Milad[employer] SUMNER and edited by Brooke Carcamo, Quality Jig Inspector. Follow-up With When Contact Information Pari Underwood PA-C In 3 months [address] [place] [address]- [phone] Additional Instructions: Patient Education Major Depressive Disorder, [...] and Father. Depression: Mother and Father. Normal [facility] Comment on above: Result Comment: Elec tronically Signed By: Pari Underwood PA-C\.br\Date and Time Signed: 09/16/23 12:42 EDT\.br\Electronically Co-Signed By: Jessica Cagle\.br\Date and Time Co-Signed: 09/13/23 12:51 EDT SEROLOGYOrdered By: Rossi Calloway on 09-16-2023 HCG.beta subunit (U) [Moles/Vol] Positive (09/16/23 8:46 AM) Normal [facility] Man Sero U BetaHcg Qualon 09-16-2023 HCG.beta subunit (U) [Moles/Vol] Positive Normal [facility] Comment on above: Performed By: #### 2 [id number] #### [facility] [address] [place] [address] UA with Cult Rflxon 09-16-19 24 Bilirubin Ql (U) Negative Normal Negative [facility] Comment on above: Performed By: #### 4 [id number] #### [facility] [address] [place] [address] Clarity (U) Clear Normal Clear [facility] Comment on above: Performed By: #### 4 [id number] #### [facility] [address] [place] [address] Color (U) Light-Yellow Normal Yellow [facility] Comment on above: Result Comment: Micr oscopic readings are only performed on those samples that meet specific criteria set forth by [facility]. Performed By: #### 4 [id number] #### [facility] [address] [place] [address] Glucose Ql (U) Negative Normal Negative [facility] Comment on above: Performed By: #### 4 [id number] #### [facility] [address] [place] [address] Hemoglobin Auto test strip (U) [Mass/Vol] Negative Normal Negative [facility] Comment on above: Performed By: #### 4 [id number] #### [facility] [address] [place] [address] Ketones Auto test strip Ql (U) Negative Normal Negative [facility] Comment on above: Performed By: #### 4 [id number] #### [facility] [address] [place] [address] Leukocyte esterase Auto test strip Ql (U) Negative Normal Negative [facility] Comment on above: Performed By: #### 4 [id number] #### [facility] [address] [place] [address] Nitrite Auto test strip Ql (U) Negative Normal Negative [facility] Comment on above: Performed By: #### 4 [id number] #### [facility] [address] [place] [address] pH (U) 6.5 [pH] Invalid Interpretation Code 5.0-9.0 [facility] Comment on above: Performed By: #### 4 [id number] #### [facility] [address] [place] [address] Protein Ql (U) Negative Normal Negative [facility] Comment on above: Performed By: #### 4 [id number] #### [facility] [address] [place] [address] Specific gravity (U) [Rel density] 1.017 Invalid Interpretation Code 1.005-1.030 [facility] Comment on above: Performed By: #### 4 [id number] #### [facility] [address] [place] [address] Urobilinogen (U) [Mass/Vol] Negative Normal Negative [facility] Comment on above: Performed By: #### 4 [id number] #### [facility] [address] [place] [address] Type of Urine collection method Clean Catch Normal [facility] Comment on above: Performed By: #### 4 [id number] #### [facility] [address] [place] [address] URINALYSISOrdered By: SYSTEM SYSTEM on 09-16-2023 Bilirubin Ql (U) Negative Normal Negativemg/dL [facility] UA Auto SS Clarity (U) Clear (09/16/23 8:46 AM) Normal Clear [facility] UA Auto SS Color (U) Light-Yellow 1 (09/16/23 8:46 AM) Normal Yellow [facility] UA Auto SS Comment on above: Interpretive Data: M icroscopic readings are only performed on those samples that meet specific criteria set forth by [facility]. Glucose Ql (U) Negative Normal Negativemg/dL FT UA Auto SS Hemoglobin Auto test strip (U) [Mass/Vol] Negative Normal Negativemg/dL FT UA Aut o SS Ketones Auto test strip Ql (U) Negative Normal Negativemg/dL FT UA Auto SS Leukocyte esterase Auto test strip Ql (U) Negative Normal NegativeLeu/uL FT UA Auto SS Nitrite Auto test strip Ql (U) Negative Normal Negativemg/dL [facility] UA Auto SS pH (U) 6.5 *NA* (09/16/23 8:46 AM) Invalid Interpretation Code 5.0 - 9.0 [facility] UA Auto SS Protein Ql (U) Negative Normal Negativemg/dL [facility] UA Auto SS Specific gravity (U) [Rel density] 1.017 *NA* (09/16/23 8:46 AM) Invalid Interpretation Code 1.005 - 1.030 [facility] UA Auto SS Urobilinogen (U) [Mass/Vol] Negative Normal Negativemg/dL [facility] UA Auto SS URINALYSISOrdered By: Dulce Lockett on 09-16-2023 UA Spec Desc Clean Catch (09/16/23 8:46 AM) Normal [facility] UA Auto SS Ambulatory Visit Summaryon 0 [...] When: In 3 months Where: [address] [place] [phone] Medications What How Much When Instructions New aripiprazole (aripiprazole 5 mg Tab) 1 Tablets By Mouth Every day Refills: 2 Pickup at [id number] Unchanged lactobacillus acidophilus (Acidophilus Probiotic Blend) Pharmacy Information [id number]: [address], [place] [id number] [phone] Allergies No Known Medication Allergies Problems Ongoing - Any problem that you are currently receiving treatment for. BMI 23.0-23.9, adult Patient Survey You may receive a survey via text or e-mail asking about your office visit. Please share your experience with us by completing your survey. We appreciate your feedback and thank you for choosing us for your care. Normal [facility] ED Note-Physicianon 08-31-19 ED Note-Physician [id number] #1.00TIFF Normal [facility] CBC with Diffon 08-30-2023 Abs. Basophil 0.04 k/uL Normal 0.00-0.20 [facility] Comment on above: Performed By: #### C DP #### [facility] [address] [place] [address] Cash Register Mechanic: Gio Peña MD Abs.Imm.Granulocyte 0.02 k/uL Normal 0.00-0.30 [facility] Comment on above: Performed By: #### C DP #### [facility] [address] [place] [address] Cash Register Mechanic: Gio Peña MD Abs.Neutrophil (Seg) 4.62 k/uL Normal 2.5-7.0 [facility] Comment on above: Performed By: #### C DP #### [facility] [address] [place] [address] Cash Register Mechanic: Gio Peña MD Basophils/100 WBC (Bld) 1 % Normal 0-2 [facility] Comment on above: Performed By: #### C DP #### [facility] [address] [place] [address] Cash Register Mechanic: Gio Peña MD Eosinophils (Bld) [#/Vol] 0.09 10*3/uL Normal 0.00-0.40 [facility] Comment on above: Performed By: #### C DP #### [facility] [address] [place] [address] Cash Register Mechanic: Gio Peña MD Eosinophils/100 WBC (Bld) 1 % Normal 0-5 [facility] Comment on above: Performed By: #### C DP #### [facility] [address] [place], [place] [id number] Cash Register Mechanic: Gio Peña MD Erythrocyte distribution width (RBC) [Ratio] 12.8 % Normal 12.1-15.2 [facility] Comment on above: Performed By: #### C DP #### [facility] [address] [place], [place] [id number] Cash Register Mechanic: Gio Peña MD Hematocrit (Bld) [Volume fraction] 38.0 % Normal 36.0-46.0 [facility] Comment on above: Performed By: #### C DP #### [facility] [address] [place] [id number] Cash Register Mechanic: Gio Peña MD Hemoglobin (Bld) [Mass/Vol] 12.5 g/dL Normal 12.0-16.0 [facility] Comment on above: Performed By: #### C DP #### [facility] [address] [place] [address] Cash Register Mechanic: Gio Peña MD Immature granulocytes/100 WBC (Bld) 0 % Normal 0-5 [facility] Comment on above: Performed By: #### C DP #### [facility] [address] [place], [place] [phone] Cash Register Mechanic: Gio Peña MD Lymphocytes (Bld) [#/Vol] 1.87 10*3/uL Normal 1.00-4.80 [facility] Comment on above: Performed By: #### C DP #### [facility] [address] [place], [place] [phone] Cash Register Mechanic: Gio Peña MD Lymphocytes/100 WBC (Bld) 26 % Normal 15-40 [facility] Comment on above: Performed By: #### C DP #### [facility] [address] [place] [address] Cash Register Mechanic: Gio Peña MD MCH (RBC) [Entitic mass] 28.2 pg Normal 26.0-34.0 [facility] Comment on above: Performed By: #### C DP #### [facility] [address] [place] [address] Cash Register Mechanic: Gio Peña MD MCHC (RBC) [Mass/Vol] 32.9 g/dL Normal 31.0-37.0 [facility] Comment on above: Performed By: #### C DP #### [facility] [address] [place] [address] Cash Register Mechanic: Gio Peña MD MCV (RBC) [Entitic vol] 85.8 fL Normal 80.0-100.0 [facility] Comment on above: Performed By: #### C DP #### [facility] [address] [place] [address] Cash Register Mechanic: Gio Peña MD Monocytes (Bld) [#/Vol] 0.55 10*3/uL Normal 0.00-1.00 [facility] Comment on above: Performed By: #### C DP #### [facility] [address] [place] [address] Cash Register Mechanic: Gio Peña MD Monocytes/100 WBC (Bld) 8 % Normal 4-8 [facility] Comment on above: Performed By: #### C DP #### [facility] [address] [place] [address] Cash Register Mechanic: Gio Peña MD Neutrophil (Seg) 64 % Normal 47-[address] [facility] Comment on above: Performed By: #### C DP #### [facility] [address] [place] [address] Cash Register Mechanic: Gio Peña MD Platelet mean volume (Bld) [Entitic vol] 9.7 fL Normal 6.0-12.0 [facility] Comment on above: Performed By: #### C DP #### [facility] [address] [place] [address] Cash Register Mechanic: Gio Peña MD Platelets (Bld) [#/Vol] 265 10*3/uL Normal 140-450 [facility] Comment on above: Performed By: #### C DP #### [facility] [address] [place] [address] Cash Register Mechanic: Gio Peña MD RBC (Bld) [#/Vol] 4.43 10*6/uL Normal 4.00-5.20 [facility] Comment on above: Performed By: #### C DP #### [facility] [address] [place], [place] [phone] Cash Register Mechanic: Gio Peña MD WBC (Bld) [#/Vol] 7.2 10*3/uL Normal 4.5-13.5 [facility] Comment on above: Performed By: #### C DP #### [facility] [address] [place], [place] [phone] Cash Register Mechanic: Gio Peña MD HCG, Quanton 08-30-2023 HCG, Quant 01760.0 mIU/mL High <5 [facility] Comment on above: Result Comment: Non-preg premeno <=5 Postmeno <=8 Male <=3 If HCG results do not concur with clinical observations, additional testing to confirm results is recommended. Performed By: #### B HCG #### [facility] [address] [place] [phone] Cash Register Mechanic: Gio Peña MD Type + Screenon 08-30-2023 Type + Screen Sample Expiration 09/02/2023,2359 ABO/Rh(D) O POSITIVE Antibody Screen NEGATIVE Normal [facility] Comment on above: Performed By: #### T YS #### [facility] [address] [place] [address] Cash Register Mechanic: Gio Peña MD Family Medicine Office/Clini [...] side effects, signs (more content not included)... [facility] Comment on above: Result Comment: Elec tronically Signed By: Pari Underwood PA-C\.br\Date and Time Signed: 08/19/23 20:54 EDT\.br\Electronically Co-Signed By: Julia Rodriguez\.br\Date and Time Co-Signed: 08/13/23 17:18 EDT [employer] 08-16-2023 Forms [id number]# 1.00TIFF [facility] Ambulatory Visit Summaryon 0 08-13-2023 Ambulatory [...] AM EDT With: Pari Underwood PA-C Where[facility] Patient Educationon 08-13-19 Patient Education Mental [...] or salt (sodium). General instructions ? Take kuwj-zut-uakqimy and prescription medicines only as told by [...] www[facility] (more content not included)... Normal [facility] CHLAMYDIA/GCon 08-04-2023 CHLAMYDIA TRACH Not detected Normal NOT DETECTED [facility] Comment on above: Performed By: #### C TNG #### Testing [place] [address] N.GONORRHOEAE Not detected Normal NOT DETECTED [facility] Comment on above: Result Comment: TEST ING PERFORMED BY PCR Testing performed at [place] [address] Performed By: #### C TNG #### Testing performed [place] [address] CHLAMYDIA/GONOCOCCUS, NAAon 08-04-2023 CHLAMYDIA TRACHOMATIS Not detected NOT DETECTED [facility] NEISSERIA GONORRHOEAE Not detected NOT DETECTED [facility] Comment on above: TESTING PERFORMED BY PCR Testing performed at [address] TRICH VAGon 08-04-2023 TRICH VAG Not detected Normal NOT DETECTED [facility] Comment on above: Result Comment: TEST ING PERFORMED BY PCR Testing performed at [place] [address] Performed By: #### A TV #### Testing [place] [address] TRICHOMONAS VAGINALIS, NAAon 08-04-2023 T. vaginalis rRNA TELMA+probe Ql (Unsp spec) Not detected NOT DETECTED [facility] Comment on above: TESTING PERFORMED BY PCR Testing performed at [address] CHLAMYDIA/GCon 04-16-2023 CHLAMYDIA TRACH Not detected Normal NOT DETECTED [facility] Comment on above: Performed By: #### C TNG #### Testing [place] [address] N.GONORRHOEAE Not detected Normal NOT DETECTED [facility] Comment on above: Result Comment: TEST ING PERFORMED BY PCR Testing performed at [place] [address] Performed By: #### C TNG #### Testing [place] [address] CHLAMYDIA/GONOCOCCUS, NAAon 04-16-2023 CHLAMYDIA TRACHOMATIS Not detected NOT DETECTED [facility] NEISSERIA GONORRHOEAE Not detected NOT DETECTED [facility] Comment on above: TESTING PERFORMED BY PCR Testing performed at [address] TRICH VAGon 04-16-2023 TRICH VAG Not detected Normal NOT DETECTED [facility] Comment on above: Result Comment: TEST ING PERFORMED BY PCR Testing performed at [place] [address] Performed By: #### C TNG #### Testing [place] [address] TRICHOMONAS VAGINALIS, NAAon 04-16-2023 T. vaginalis rRNA TELMA+probe Ql (Unsp spec) Not detected NOT DETECTED [facility] Comment on above: TESTING PERFORMED BY PCR Testing performed at [address] XR RIBS WITH CHEST, RIGHTon 10-24-2022 [...] fractures identified. IMPRESSION: No acute findings. Normal [facility] CHLAMYDIA/GCon 10-23-2022 CHLAMYDIA TRACH Not detected Normal NOT DETECTED [facility] Comment on above: Performed By: #### C TNG #### Testing [place] [address] N.GONORRHOEAE Not detected Normal NOT DETECTED [facility] Comment on above: Result Comment: TEST ING PERFORMED BY PCR Testing performed at [place] [address] Performed By: #### C TNG #### Testing [place] [address] CHLAMYDIA/GONOCOCCUS, NAAon 10-23-2022 CHLAMYDIA TRACHOMATIS Not detected NOT DETECTED [facility] NEISSERIA GONORRHOEAE Not detected NOT DETECTED [facility] Comment on above: TESTING PERFORMED BY PCR Testing performed at [address] TRICH VAGon 10-23-2022 TRICH VAG Not detected Normal NOT DETECTED [facility] Comment on above: Result Comment: TEST ING PERFORMED BY PCR Testing performed at [place] [address] Performed By: #### A TV #### Testing performed at [facility] [address] [place] [address] TRICHOMONAS VAGINALIS, NAAon 10-23-2022 T. vaginalis rRNA TELMA+probe Ql (Unsp spec) Not detected NOT DETECTED [facility] Comment on above: TESTING PERFORMED BY PCR Testing performed at [address] CBC, EDIF, PLATELETon 2021 ABSOLUTE BASOPHIL COUNT 0.0 10*3/uL 0.0 - 0.2 10*3/uL [facility] Comment on above: Testing performed at [place] [address] Basophils/100 WBC (Bld) 0.5 % 0.0 - 2.0 % [facility] Differential cell count method Nom (Bld) AUTO DIFF % [facility] Eosinophils (Bld) [#/Vol] 0.20 10*3/uL 0.0 - 0.7 10*3/uL [facility] Eosinophils/100 WBC (Bld) 1.9 % 0.0 - 11.0 % [facility] Erythrocyte distribution width (RBC) [Ratio] 13.1 % 11.5 - 14.5 % [facility] Hematocrit (Bld) [Volume fraction] 32.9 % Low 36.0 - 48.0 % [facility] Hemoglobin (Bld) [Mass/Vol] 11.5 g/dL Low [facility] Interpretation and review of laboratory results Abnormal [facility] Lymphocytes (Bld) [#/Vol] 1.50 10*3/uL 1.2 - 3.4 10*3/uL [facility] Lymphocytes/100 WBC (Bld) 17.3 % Low 20.0 - 55.0 % [facility] MCH (RBC) [Entitic mass] 31.1 pg 26.0 - 35.0 PG [facility] MCHC (RBC) [Mass/Vol] 35.0 g/dL [facility] MCV (RBC) [Entitic vol] 89.0 fL [facility] Monocytes (Bld) [#/Vol] 0.8 10*3/uL High 0.0 - 0.7 10*3/uL [facility] Monocytes/100 WBC (Bld) 8.6 % 0.0 - 10.0 % [facility] Neutrophils (Bld) [#/Vol] 6.3 10*3/uL 1.4 - 6.5 10*3/uL [facility] Neutrophils/100 WBC (Bld) 71.7 % 37.0 - 75.0 % [facility] Platelet mean volume (Bld) [Entitic vol] 8.4 fL [facility] Platelets (Bld) [#/Vol] 226 10*3/uL 130.0 - 400.0 10*3/uL [facility] RBC (Bld) [#/Vol] 3.69 10*6/uL Low 4.0 - 5.4 10*6/uL [facility] WBC (Bld) [#/Vol] 8.8 10*3/uL 3.6 - 11.0 10*3/uL [facility] GLUCOSE POST LOADINGon 06-02 Glucose 1 Hr post 50 g glucose PO [Mass/Vol] 93 mg/dL [facility] Comment on above: Testing performed at [place] [id number] [facility] COLPOSCOPYon 03-13-2021 Doyle Amaro MD 03/13/2021 [...] as needed for mild to moderate pain. [facility] Narrative [Interpretat ion] Study observation general USon 02-06-2021 : 1. Single of 11 weeks and 5 days. 2. heart rate of 168 bpm. 3. US SEBASTIAN 08/23/2021, which is inconsistent with SEBASTIAN by LMP and should be changed. [facility] REFERRING PHYSICIAN: Dr. Amaro TECHNOLOGIST: Ashley Acosta PROCEDURE DATE : 02/06/2021 INDICATIONS: Early gestational, dating LMP 11/09/2020, SEBASTIAN 08/16/2021 PROCEDURE DETAILS A single was noted within the uterus. heart rate of 168 bpm. The CRL measures 5.03 cm , 11 weeks 5 days. FINAL [facility] Radiology Study observation (narrative) [facility] ABO/RH(D) TYPINGon ABO and Rh group Nom (Bld ) Positive [facility] ABO and Rh group Nom (Bld ) Testing performed at [place], [place] [address] [facility] ANTIBODY SCREENon 01-14-2021 Blood group antibody screen Ql Negative [facility] EXPIRATION DATE 01/17/2021,2359 [facility] EXPIRATION DATE Testing performed at [place], [place] [address] [facility] CBC, EDIF, PLATELETon 2020 ABSOLUTE BASOPHIL COUNT 0.0 10*3/uL 0.0 - 0.2 10*3/uL [facility] Comment on above: Testing performed at [place], [place] [address] Basophils/100 WBC (Bld) 0.6 % 0.0 - 2.0 % [facility] Differential cell count method Nom (Bld) AUTO DIFF % [facility] Eosinophils (Bld) [#/Vol] 0.10 10*3/uL 0.0 - 0.7 10*3/uL [facility] Eosinophils/100 WBC (Bld) 1.3 % 0.0 - 11.0 % [facility] Erythrocyte distribution width (RBC) [Ratio] 13.5 % 11.5 - 14.5 % [facility] Hematocrit (Bld) [Volume fraction] 35.9 % Low 36.0 - 48.0 % [facility] Hemoglobin (Bld) [Mass/Vol] 12.2 g/dL [facility] Interpretation and review of laboratory results Abnormal [facility] Lymphocytes (Bld) [#/Vol] 2.40 10*3/uL 1.2 - 3.4 10*3/uL [facility] Lymphocytes/100 WBC (Bld) 34.3 % 20.0 - 55.0 % [facility] MCH (RBC) [Entitic mass] 28.7 pg 26.0 - 35.0 PG [facility] MCHC (RBC) [Mass/Vol] 33.9 g/dL [facility] MCV (RBC) [Entitic vol] 84.7 fL [facility] Monocytes (Bld) [#/Vol] 0.7 10*3/uL 0.0 - 0.7 10*3/uL [facility] Monocytes/100 WBC (Bld) 9.7 % 0.0 - 10.0 % [facility] Neutrophils (Bld) [#/Vol] 3.8 10*3/uL 1.4 - 6.5 10*3/uL [facility] Neutrophils/100 WBC (Bld) 54.1 % 37.0 - 75.0 % [facility] Platelet mean volume (Bld) [Entitic vol] 9.3 fL [facility] Platelets (Bld) [#/Vol] 289 10*3/uL 130.0 - 400.0 10*3/uL [facility] RBC (Bld) [#/Vol] 4.23 10*6/uL 4.0 - 5.4 10*6/uL [facility] WBC (Bld) [#/Vol] 7.1 10*3/uL 3.6 - 11.0 10*3/uL [facility] HIV 1+2 Ab+HIV1 p24 Ag IA Ql on 01-14-2021 HIV 1+2 Ab IA Ql Non-Reactive NONREACTIVE [facility] Comment on above: Testing performed at [place], [place] [address] [facility] RAPID TOX SCREEN WITH RELEX TO DRUGMCon 01-14-2021 Amphetamine (U) [Mass/Vol] Negative NEGATIVE NG/ML [facility] Comment on above: <500 ng/ml CUTOFF Barbiturates Screen Ql (U) Negative NEGATIVE NG/ML [facility] Comment on above: <200 ng/ml CUTOFF Benzodiazepines Ql (U) Negative NEGATIVE NG/ML [facility] Comment on above: <150 ng/ml CUTOFF Benzoylecgonine Ql (U) Negative NEGATIVE NG/ML [facility] Comment on above: <150 ng/ml CUTOFF Buprenorphine Ql (U) Negative NEGATIVE NG/ML [facility] Comment on above: <10 ng/ml CUTOFF Testing performed at [place] [address] Cannabinoids Screen Ql (U) Positive Abnormal NEGATIVE NG/ML [facility] Comment on above: <50 ng/ml CUTOFF *Unconfirmed Screening Result* Unconfirmed screening results are to be used only for medical treatment purposes. Interpretation and review of laboratory results Abnormal [facility] Methadone Screen Ql (U) Negative NEGATIVE NG/ML [facility] Comment on above: <200 ng/ml CUTOFF Methamphetamine (U) [Mass/Vol] Negative NEGATIVE NG/ML [facility] Comment on above: <500 ng/ml CUTOFF Opiates Screen Ql (U) Negative NEGATIVE NG/ML [facility] Comment on above: <100 ng/ml CUTOFF oxyCODONE Ql (U) Negative NEGATIVE NG/ML [facility] Comment on above: <100 ng/ml CUTOFF Phencyclidine Screen method >25 ng/mL Ql (U) Negative NEGATIVE NG/ML [facility] Comment on above: <25 ng/ml CUTOFF Propoxyphene+Norpropo xyphene Screen Ql (U) Negative NEGATIVE NG/ML [facility] Comment on above: <300 ng/ml CUTOFF Tricyclic antidepressants Screen Ql (U) Negative NEGATIVE NG/ML [facility] Comment on above: <300 ng/ml CUTOFF [facility] REQUEST FOR MISC LAB SENDOUT on 01-14-2021 Miscellaneous Test 1 SPECIMEN SENT TO REFERENCE LAB FOR TESTING [facility] Comment on above: [id number] CANNABINOID Testing performed at [place] [id number] [facility] Chlamydia/GC,DNA Ampon 08-09 Chlamydia Probe Negative Normal NEG [facility] Comment on above: Result Comment: CHLA MYDIA [...] target. Performed By: #### S WCGP #### [address] [phone] [employer] Mechanic: Geovani Cordon MD Gonorrhea Probe Negative [facility] Comment on above: Result Comment: NEIS SERIA [...] target. Performed By: #### S WCGP #### [address] [address] [employer] Mechanic: Geovani Cordon MD Herpes 1+2 Molecularon 08-09 HSV-1, NAAT Negative [facility] Comment on above: Result Comment: HSV- 1 DNA not detected by nucleic acid amplification Performed By: #### H BS, HSVDNA, TREP, AHCV, HIVCMB #### [facility] [employer] [address] [place] [address] [phone] [employer] Mechanic: Geovani Cordon MD HSV-2, NAAT Negative [facility] Comment on above: Result Comment: HSV- 2 DNA not detected by nucleic acid amplification Performed By: #### H BS, HSVDNA, TREP, AHCV, HIVCMB #### [address] [address] [employer] Mechanic: Geovani Cordon MD Vaginitis DNA Probeon [...] of vaginitis/vaginosis. Report Status FINAL 08/09/2020 Normal [facility] Comment on above: Performed By: #### V AGDNA #### [address] [address] [employer] Mechanic: Geovani Cordon MD [facility] [address] [place] [address] [employer] Mechanic: Gio Peña MD HIV Ag/Abon 08-08-2020 HIV Ag/Ab Non-Reactive Normal [facility] Comment on above: Result Comment: No l aboratory evidence of HIV infection. If acute HIV infection is suspected, consider testing for HIV-1 RNA. Performed By: #### H BS, HSVDNA, TREP, AHCV, HIVCMB #### [address] [address] [employer] Mechanic: Geovani Cordon MD Hep B Surf Agon 08-08-2020 Hep B Surf Ag Non-Reactive Normal [facility] Comment on above: Performed By: #### H BS, HSVDNA, TREP, AHCV, HIVCMB #### [address] [address] [employer] Mechanic: Geovani Cordon MD Hep C Abon [...] H BS, HSVDNA, TREP, AHCV, HIVCMB #### [address] [address] [employer] Mechanic: Geovani Cordon MD Herpes 1+2 Molecularon 08-08 Source: NOT REPORTED Normal [facility] Comment on above: Performed By: #### H BS, HSVDNA, TREP, AHCV, HIVCMB #### [facility] [employer] [address] [place], [place] [phone] [employer] Mechanic: Geovani Cordon MD T.pallidum Ab Screenon 08-08 T.pallidum Ab Screen Non-Reactive Normal NR [facility] Comment on above: Result Comment: T. pallidum antibodies are not detected. There is no serological evidence of infection with T. pallidum (early primary syphilis cannot be excluded). Retest in 2-4 weeks if syphilis is clinically suspect. Performed By: #### H BS, HSVDNA, TREP, AHCV, HIVCMB #### [facility] [employer] [address] [place], [place] [phone] [employer] Mechanic: Geovani Cordon MD CBC W/DIFFon 09-29-2019 ABS BASOPHILS 0.1 10*3/uL Normal 0.0-0.2 [facility] Comment on above: Order Comment: No: D o not add to previous draw Performed By: #### 5 0103 #### [facility] [address] [place] [address], [facility] ABS IMM GRANS 0.0 10*3/uL Normal 0.0-0.2 [facility] Comment on above: Order Comment: No: D o not add to previous draw Performed By: #### 5 0103 #### [facility] [address] [place] [address], [place] ABS NEUTROPHILS 2.1 10*3/uL Normal 1.6-7.6 [facility] Comment on above: Order Comment: No: D o not add to previous draw Performed By: #### 5 0103 #### [facility] [address] [place] [address], [place] Basophils/100 WBC (Bld) 1.2 % High 0.0-1.0 [facility] Comment on above: Order Comment: No: D o not add to previous draw Performed By: #### 5 0103 #### [facility] [address] [place] [address], [facility] Eosinophils (Bld) [#/Vol] 0.3 10*3/uL Normal 0.0-0.5 [facility] Comment on above: Order Comment: No: D o not add to previous draw Performed By: #### 5 0103 #### [facility] [address] [place] [address], [facility] Eosinophils/100 WBC (Bld) 4.5 % Normal 0.0-6.0 [facility] Comment on above: Order Comment: No: D o not add to previous draw Performed By: #### 5 0103 #### [facility] [address] [facility] [address] Erythrocyte distribution width (RBC) [Ratio] 14.0 % Normal 11.5-15.0 [facility] Comment on above: Order Comment: No: D o not add to previous draw Performed By: #### 5 0103 #### [facility] [address] [facility] [place] [address], [facility] Hematocrit (Bld) [Volume fraction] 39.7 % Normal 36.0-45.0 [facility] Comment on above: Order Comment: No: D o not add to previous draw Performed By: #### 5 0103 #### [facility] [address] [facility] [place] [address], [facility] Hemoglobin (Bld) [Mass/Vol] 12.9 g/dL Normal 12.0-15.0 [facility] Comment on above: Order Comment: No: D o not add to previous draw Performed By: #### 5 0103 #### [facility] [address] [place] [address], [facility] IMMATURE GRANS 0.3 % Normal 0.0-1.0 [facility] Comment on above: Order Comment: No: D o not add to previous draw Performed By: #### 5 0103 #### [facility] [address] [place] [address], [facility] Lymphocytes (Bld) [#/Vol] 3.1 10*3/uL Normal 1.2-4.0 [facility] Comment on above: Order Comment: No: D o not add to previous draw Performed By: #### 5 0103 #### [facility] [address] [place] [address], [facility] Lymphocytes/100 WBC (Bld) 51.7 % High 20.0-45.0 [facility] Comment on above: Order Comment: No: D o not add to previous draw Performed By: #### 5 0103 #### [facility] [address] [facility] [place] [address], [facility] MCH (RBC) [Entitic mass] 27.7 pg Normal 27.0-33.0 [facility] Comment on above: Order Comment: No: D o not add to previous draw Performed By: #### 5 0103 #### [facility] [address] [facility] [place] [address], [facility] MCHC (RBC) [Mass/Vol] 32.5 g/dL Normal 32.0-35.0 [facility] Comment on above: Order Comment: No: D o not add to previous draw Performed By: #### 5 0103 #### [facility] [address] [place] [id number], [facility] MCV (RBC) [Entitic vol] 85.2 fL Normal 82.0-98.0 [facility] Comment on above: Order Comment: No: D o not add to previous draw Performed By: #### 5 0103 #### [facility] [address] [place] [id number], [facility] Monocytes (Bld) [#/Vol] 0.4 10*3/uL Normal 0.1-1.0 [facility] Comment on above: Order Comment: No: D o not add to previous draw Performed By: #### 5 0103 #### [facility] [address] [place] [address], [facility] MONOS 7.2 % Normal 5.0-12.0 [facility] Comment on above: Order Comment: No: D o not add to previous draw Performed By: #### 5 0103 #### [facility] [address] [place] [id number], [facility] Neutrophils/100 WBC (Bld) 35.1 % Low 40.0-72.0 [facility] Comment on above: Order Comment: No: D o not add to previous draw Performed By: #### 5 0103 #### [facility] [address] [place] [address], [facility] Nucleated RBC/100 WBC (Bld) [Ratio] 0 % Normal 0-0 [facility] Comment on above: Order Comment: No: D o not add to previous draw Performed By: #### 5 0103 #### [facility] [address] [place] [id number], [facility] PLAT CNT 237 10*3/uL Normal 150-400 [facility] Comment on above: Order Comment: No: D o not add to previous draw Performed By: #### 5 0103 #### [facility] [address] [place] [address], [facility] RBC (Bld) [#/Vol] 4.66 10*6/uL Normal 3.80-5.00 [facility] Comment on above: Order Comment: No: D o not add to previous draw Performed By: #### 5 0103 #### [facility] [address] [place] [address], [place] WBC (Bld) [#/Vol] 5.96 10*3/uL Normal 4.00-10.60 [facility] Comment on above: Order Comment: No: D o not add to previous draw Performed By: #### 5 0103 #### [facility] [address] [place] [address], [facility] COMP METABOLIC PANELon 09-28 Albumin [Mass/Vol] 4.5 g/dL Normal 3.5-5.7 [facility] Comment on above: Order Comment: No: D o not add to previous draw Performed By: #### 4 4396, 22090, 78181, 71691, 82883, 30060 #### [facility] [address] [place] [address], [facility] ALKALINE PHOSPH 59 IU/L Normal 40-460 [facility] Comment on above: Order Comment: No: D o not add to previous draw Performed By: #### 4 4396, 32297, 11025, 17099, 62076, 92250 #### [facility] [address] [place] [address], [facility] ALT [Catalytic activity/Vol] 10 U/L Normal 7-52 [facility] Comment on above: Order Comment: No: D o not add to previous draw Performed By: #### 4 4396, 23584, 50718, 74569, 23753, 77467 #### [facility] [address] [place] [address], [facility] AST [Catalytic activity/Vol] 17 U/L Normal 13-39 [facility] Comment on above: Order Comment: No: D o not add to previous draw Performed By: #### 4 4396, 50405, 85738, 96724, 54436, 05783 #### [facility] [address] [place] [address], [place] Bilirubin [Mass/Vol] 0.4 mg/dL Normal 0.3-1.0 [facility] Comment on above: Order Comment: No: D o not add to previous draw Performed By: #### 4 4396, 51897, 76452, 96368, 90370, 99183 #### [facility] [address] [place] [address], [place] Calcium [Mass/Vol] 9.5 mg/dL Normal 8.6-10.3 [facility] Comment on above: Order Comment: No: D o not add to previous draw Performed By: #### 4 4396, 27234, 01073, 53106, 01143, 75884 #### [facility] [address] [place] [address], [place] Chloride [Moles/Vol] 104 mmol/L Normal 98-107 [facility] Comment on above: Order Comment: No: D o not add to previous draw Performed By: #### 4 4396, 72219, 26461, 82934, 93823, 56180 #### [facility] [address] [place] [address], [place] CO2 [Moles/Vol] 28 mmol/L Normal 21-31 [facility] Comment on above: Order Comment: No: D o not add to previous draw Performed By: #### 4 4396, 49811, 96739, 62320, 85020, 51190 #### [facility] [address] [place] [address], [place] Creatinine [Mass/Vol] 0.66 mg/dL Normal 0.60-1.20 [facility] Comment on above: Order Comment: No: D o not add to previous draw Performed By: #### 4 4396, 55084, 90967, 36819, 54557, 88236 #### [facility] [address] [place] [address], [place] GFR/1.73 sq M predicted among blacks MDRD (S/P/Bld) [Vol rate/Area] Calculation not validated for patients under 18 years Abnormal >60 [facility] Comment on above: Order Comment: No: D o not add to previous draw Performed By: #### 4 4396, 78219, 26828, 61237, 65392, 83594 #### [facility] [address] [place] [address], [facility] GFR/1.73 sq M predicted among non-blacks MDRD (S/P/Bld) [Vol rate/Area] Calculation not validated for patients under 18 years Abnormal >60 [facility] Comment on above: Order Comment: No: D o not add to previous draw Performed By: #### 4 4396, 17870, 51719, 27424, 27860, 79030 #### [facility] [address] [place] [address], [place] Glucose [Mass/Vol] 139 mg/dL High 70-100 [facility] Comment on above: Order Comment: No: D o not add to previous draw Performed By: #### 4 4396, 69078, 46905, 33520, 69857, 44011 #### [facility] [address] [place] [address], [place] Potassium [Moles/Vol] 3.6 mmol/L Normal 3.5-5.1 [facility] Comment on above: Order Comment: No: D o not add to previous draw Performed By: #### 4 4396, 30484, 08885, 06459, 71358, 13043 #### [facility] [address] [place] [address], [place] Protein [Mass/Vol] 7.2 g/dL Normal 6.0-8.3 [facility] Comment on above: Order Comment: No: D o not add to previous draw Performed By: #### 4 4396, 54038, 25367, 80661, 42510, 04721 #### [facility] [address] [place] [address], [place] Sodium [Moles/Vol] 139 mmol/L Normal 136-145 [facility] Comment on above: Order Comment: No: D o not add to previous draw Performed By: #### 4 4396, 12296, 18593, 98409, 20083, 45797 #### [facility] [address] [place] [address], [place] Urea nitrogen [Mass/Vol] 9 mg/dL Normal 7-25 [facility] Comment on above: Order Comment: No: D o not add to previous draw Performed By: #### 4 4396, 47379, 07276, 80224, 00373, 18130 #### [facility] [address] [place] [address], [facility] FREE T3on 09-29-2019 Free T3 [Mass/Vol] 4.2 pg/mL High 2.5-3.9 [facility] [facility] Comment [facility] above: Order Comment: No: D o not add to previous draw Performed By: #### [id number], [id number], 49673, 87715, 82568, 05302 #### [facility] [address] [place] [address], [facility] FREE T4on 09-29-2019 Free T4 [Mass/Vol] 0.82 ng/dL Normal 0.71-1.85 [facility] Comment on above: Order Comment: No: D o not add to previous draw Performed By: #### [id number] 55541, 18473, 56447, 74567, 85452 #### [facility] [address] [place] [address], [facility] LIPID PROFILEon 09-29-2019 Cholesterol [Mass/Vol] 153 mg/dL Normal 120-170 [facility] Comment on above: Order Comment: No: D o not add to previous draw Result Comment: CHOL ESTEROL REFERENCE RANGE: 20 YEARS AND OLDER CARDIOVASCULAR RISK Less than 200 mg/dl Low Risk 200 to 239 mg/dl Borderline Risk 240 mg/dl and greater High Risk Performed By: #### [id number] 69921, 73795, 07676, 03838, 35838 #### [facility] [address] [place] [address], [facility] Cholesterol in HDL [Mass/Vol] 56 mg/dL Normal 23-92 [facility] Comment on above: Order Comment: No: D o not add to previous draw Result Comment: Slig ht variation in normal range could be due to gender and/or age. HDL CHOLESTEROL REFERENCE RANGE: 20 years and older Cardiovascular Risk > or =60 mg/dL Desirable 40 TO 59 mg/dL Low Risk <40 mg/dL High Risk Performed By: #### [id number] 49267, 32243, 40044, 64258, 28478 #### [facility] [address] [place] [address], [facility] Cholesterol in LDL [Mass/Vol] 74 mg/dL Normal 0-130 [facility] Comment on above: Order Comment: No: D o not add to previous draw Result Comment: LDL IS A CALCULATION LDL IS ONLY VALID IF THE TRIG IS LESS THAN 400. Performed By: #### [id number], 87395, 07083, 09848, 81597, 47721 #### [facility] [address] [place] [address], [facility] Cholesterol.total/Cho lesterol in HDL [Mass ratio] 2.7 {ratio} Normal 0.0-4.5 [facility] Comment on above: Order Comment: No: D o not add to previous draw Performed By: #### [id number], 63702, 41320, 20929, 33368, 75047 #### [facility] [address] [place] [address], [facility] NON-HDL CHOLESTEROL 97 mg/dL Normal [facility] Comment on above: Order Comment: No: D o not add to previous draw Performed By: #### [id number], 55546, 98350, 98111, 47156, 02909 #### [facility] [address] [place] [address], [facility] Triglyceride [Mass/Vol] 114 mg/dL Normal 37-148 [facility] Comment on above: Order Comment: No: D o not add to previous draw Result Comment: TRIG LYCERIDE REFERENCE RANGE: 20 YEARS AND OLDER CARDIOVASCULAR RISK LESS THAN 150 mg/dl LOW RISK 150 TO 199 mg/dl BORDERLINE RISK 200 mg/dl AND GREATER HIGH RISK Performed By: #### [id number], 53384, 38574, 21567, 14416, 80094 #### [facility] [address] [place] [address], [facility] VLDL CHOL 23 mg/dL Normal 0-40 [facility] Comment on above: Order Comment: No: D o not add to previous draw Performed By: #### [id number], 37549, 59322, 22014, 22865, 06885 #### [facility] [address] [facility] [address], [facility] SERUM TESTon 09-28 TEST Negative Normal [facility] Comment on above: Order Comment: No: D o not add to previous draw Performed By: #### [id number] #### [facility] [address] [facility] [place] [address], [facility] TSH3on 09-29-2019 TSH 3RD GENERATION 1.24 uIU/mL Normal 0.34-5.60 [facility] Comment on above: Order Comment: No: D o not add to previous draw Performed By: #### [id number], 60085, 62245, 18713, 21712, 78251 #### [facility] [address] [facility] [place], [place] [id number] [place] [address] VITAMIN D 25-HYDROXYon 09-28 VITAMIN D 25-OH 42.5 ng/mL Normal 30.0-80.0 [facility] Comment on above: Result Comment: >80. 0 Toxicity possible Performed By: #### 4 [id number], 10370, 36856, 49627, 00770, 09360 #### [facility] [address] [facility] [place] [address], [facility] Urine Drug Screenon 09-28-19 20 Amphetamine [...] 50 ng/mL) Cocaine Metabolite, Urine Negative NEGATIVE [place] Comment on above: (Positive cutoff 150 ng/mL) Interpretation and review of laboratory results Abnormal [place] MDMA, Urine NOT REPORTED NEGATIVE [place] Methadone Screen, Urine Negative NEGATIVE [place] Comment on above: (Positive cutoff 200 ng/mL) Methamphetamine, Urine Negative NEGATIVE [place] Comment on above: (Positive cutoff 500 ng/mL) Opiates, Urine Negative NEGATIVE [place] Comment on above: (Positive cutoff 100 ng/mL) Oxycodone Screen, Ur Negative NEGATIVE [place] Comment on above: (Positive cutoff 100 ng/mL) Phencyclidine, Urine Negative NEGATIVE [place] Comment on above: (Positive cutoff 25 ng/mL) Propoxyphene, Urine Negative NEGATIVE [place] Comment on above: (Positive cutoff 300 ng/mL) Test Information NOT REPORTED [place] Tricyclic Antidepressants, Urine Negative NEGATIVE [place] Comment on above: (Positive cutoff 300 ng/mL) Drug screen results are to be used for medical purposes only. All positive results are unconfirmed. Testing for employment or legal uses should be sent to a reference laboratory for confirmation. Acetaminophen Levelon 2019 Acetaminophen [Mass/Vol] <5 Low 10 - 30 ug/mL [place] Interpretation and review of laboratory results Abnormal [place] Basic Metabolic Panelon 09-06 Anion gap [Moles/Vol] 15 mmol/L 9 - 17 mmol/L [place] Bun/Cre Ratio 13 [place] Calcium [Mass/Vol] 10.5 mg/dL High 8.4 - 10. 2 mg/dL [place] Chloride [Moles/Vol] 98 mmol/L 98 - 10 7 mmol/L [place] CO2 [Moles/Vol] 23 mmol/L 20 - 31 mmol/L [place] Creatinine [Mass/Vol] 0.61 mg/dL 0.5 - 0.9 mg/dL [place] GFR NOT REPORTED >60 mL/min [place] GFR Non- Pediatric GFR requires additional information. Refer to NKDEP website for calculator. >60 mL/min [place] GFR/1.73 sq M predicted among non-blacks MDRD (S/P/Bld) [Vol rate/Area] NOT REPORTED [place] GFR/1.73 sq M predicted among non-blacks MDRD (S/P/Bld) [Vol rate/Area] [place] Comment on above: Average GFR for <20 years old not available. Chronic Kidney Disease: <60 mL/min/1.73sq m Kidney failure: <15 mL/min/1.73sq m eGFR calculated using average adult body mass. Additional eGFR calculator available at: http://www.ComparaOnline/multiple_crcl_2012.htm Glucose [Mass/Vol] 106 mg/dL High 60 - 100 mg/dL [place] Potassium [Moles/Vol] 3.9 mmol/L 3.6 - 4.9 mmol/L [place] Sodium [Moles/Vol] 136 mmol/L 135 - 144 mmol/L [place] Urea nitrogen [Mass/Vol] 8 mg/dL 5 - 18 mg/dL [place] CBC Auto Differentialon 09-06 Basophils (Bld) [#/Vol] 0.00 10*3/uL [place] Basophils/100 WBC (Bld) 0 % 0 - 2 % [place] Differential Type YES [place] Eosinophils (Bld) [#/Vol] 0.10 10*3/uL [place] Eosinophils/100 WBC (Bld) 1 % 0 - 5 % [place] Erythrocyte distribution width (RBC) [Ratio] 14.8 % 12.1 - 15.2 % [place] Hematocrit (Bld) [Volume fraction] 40.2 % 36 - 46 % [place] Hemoglobin (Bld) [Mass/Vol] 13.8 g/dL 12 - 16 g/dL [place] Lymphocytes (Bld) [#/Vol] 1.90 10*3/uL [place] Lymphocytes/100 WBC (Bld) 21 % 14 - 41 % [place] MCH (RBC) [Entitic mass] 28.4 pg 25 - 35 pg [place] MCHC (RBC) [Mass/Vol] 34.2 g/dL 31 - 37 g/dL [place] MCV (RBC) [Entitic vol] 83.1 fL 78 - 102 fL [place] Monocytes (Bld) [#/Vol] 0.70 10*3/uL [place] Monocytes/100 WBC (Bld) 7 % 4 - 8 % [place] Platelet mean volume (Bld) [Entitic vol] NOT REPORTED 6 - 12 fL [place] Platelets (Bld) [#/Vol] 238 10*3/uL [place] Platelets (Bld) [#/Vol] NOT REPORTED [place] RBC (Bld) [#/Vol] 4.84 10*6/uL 4 - 5.2 m/uL [place], [place] RBC morphology finding Nom (Bld) NOT REPORTED [place] Segmented neutrophils/100 WBC (Bld) 71 % 45 - 76 % [place] Segs Absolute 6.50 [place] WBC (Bld) [#/Vol] 9.2 10*3/uL [place] WBC (Bld) [#/Vol] NOT REPORTED per 100 WBC [place] WBC Morphology NOT REPORTED [place], [place] Ethanolon 09-27-2019 Ethanol [Mass/Vol] mg/dL <10 mg/dL [place], [place] Ethanol percent <0.010 % [place] HCG Qualitative, Serumon hCG Qual Negative NEGATIVE [place] Comment on above: Specimens with hCG l evels near the threshold of the test (25 mIU/mL) may give a negative or indeterminate result. In such cases, another test should be performed with a new specimen in 48-72 hours. If early is suspected clinically in this setting, correlation with quantitative serum b-hCG level is suggested. [employer] has confirmed the use of plasma for this test. This has not been cleared or approved by the U.S. Food and Drug Administration. The FDA has determined that such clearance is not necessary. Otheron 09-27-2019 Interpretation and review of laboratory results [facility]normal [facility] Immature granulocytes (Bld) [#/Vol] NOT REPORTED 0 % [facility] Salicylateon 09-27-2019 Salicylate Lvl <1 Low 3 - 10 mg/dL [facility] [place] TSH without Reflexon 020 TSH Qn 0.49 m[IU]/L [facility] RIGHT (MIN 3 VIEWS)o n 09-27-2019 EXAM: XR HAND RIGHT (MIN 3 VIEWS) HISTORY: Reason for exam:->pain to lateral MCs, punched wall COMPARISON: Right hand, 07/20/2014. TECHNIQUE: AP, oblique and lateral views of the right hand. FINDINGS: No acute or intrinsic osseous, articular or soft tissue abnormality is seen. [facility] [place] No acute findings. [facility] [place], [place] Incoming Radiant Results From [email or web address] - 09/27/2019 11:39 PM EDT EXAM: XR HAND RIGHT (MIN 3 VIEWS) HISTORY: Reason for exam:->pain to lateral MCs, punched wall COMPARISON: Right hand, 07/20/2014. TECHNIQUE: AP, oblique and lateral views of the right hand. FINDINGS: No acute or intrinsic osseous, articular or soft tissue abnormality is seen. IMPRESSION: No acute findings. [facility] [place] CBC Auto Differentialon 11-0 Basophils (Bld) [#/Vol] 0.00 10*3/uL [facility] Basophils/100 WBC (Bld) 1 % 0 - 2 % [place] Differential Type YES [place] Eosinophils (Bld) [#/Vol] 0.00 10*3/uL [facility] [place] Eosinophils/100 WBC (Bld) 1 % 0 - 5 % [place] Erythrocyte distribution width (RBC) [Ratio] 14.3 % 12.1 - 15.2 % [place] Hematocrit (Bld) [Volume fraction] 40.7 % 36 - 46 % [place] Hemoglobin (Bld) [Mass/Vol] 13.4 g/dL 12 - 16 g/dL [place] Interpretation and review of laboratory results Abnormal [place] Lymphocytes (Bld) [#/Vol] 1.20 10*3/uL [place] Lymphocytes/100 WBC (Bld) 33 % 14 - 41 % [place] MCH (RBC) [Entitic mass] 27.3 pg 25 - 35 pg [place] MCHC (RBC) [Mass/Vol] 33.0 g/dL 31 - 37 g/dL [place] MCV (RBC) [Entitic vol] 82.8 fL 78 - 102 fL [place] Monocytes (Bld) [#/Vol] 0.40 10*3/uL [place] Monocytes/100 WBC (Bld) 12 % High 4 - 8 % [place] Platelet mean volume (Bld) [Entitic vol] NOT REPORTED 6 - 12 fL [place] Platelets (Bld) [#/Vol] 235 10*3/uL [place] Platelets (Bld) [#/Vol] NOT REPORTED [place] RBC (Bld) [#/Vol] 4.92 10*6/uL 4 - 5.2 m/uL [place] RBC morphology finding Nom (Bld) NOT REPORTED [place] Segmented neutrophils/100 WBC (Bld) 53 % 45 - 76 % [place] Segs Absolute 2.10 Low [place] WBC (Bld) [#/Vol] 3.8 10*3/uL Low [place] WBC (Bld) [#/Vol] NOT REPORTED per 100 WBC [place] WBC Morphology NOT REPORTED [place] Comprehensive Metabolic Pane bonita 01-12-2019 Albumin [Mass/Vol] 4.8 g/dL High 3.2 - 4.5 g/dL [facility] [place] [place] Albumin/Globulin [Mass ratio] NOT REPORTED [place] ALP [Catalytic activity/Vol] 88 U/L 47 - 119 U/L [place] ALT [Catalytic activity/Vol] 12 U/L 5 - 33 U/L [place] Anion gap [Moles/Vol] 17 mmol/L 9 - 17 mmol/L [place] AST [Catalytic activity/Vol] 24 U/L <32 [place] Bilirubin Ql (U) 0.46 mg/dL 0.3 - 1.2 mg/dL [place] Bun/Cre Ratio 14 [place], [place] Calcium [Mass/Vol] 10.4 mg/dL High 8.4 - 10. 2 mg/dL [place] Chloride [Moles/Vol] 101 mmol/L 98 - 10 7 mmol/L [place] CO2 [Moles/Vol] 22 mmol/L 20 - 31 mmol/L [place] Creatinine [Mass/Vol] 0.65 mg/dL 0.5 - 0.9 mg/dL [place] GFR NOT REPORTED >60 mL/min [place] GFR Non- Pediatric GFR requires additional information. Refer to NKDEP website for calculator. >60 mL/min [place] GFR/1.73 sq M predicted among non-blacks MDRD (S/P/Bld) [Vol rate/Area] NOT REPORTED [place] GFR/1.73 sq M predicted among non-blacks MDRD (S/P/Bld) [Vol rate/Area] [place] Comment on above: Average GFR for <20 years old not available. Chronic Kidney Disease: <60 mL/min/1.73sq m Kidney failure: <15 mL/min/1.73sq m eGFR calculated using average adult body mass. Additional eGFR calculator available at: http://www.ComparaOnline/multiple_crcl_2012.htm Glucose [Mass/Vol] 90 mg/dL 60 - 100 mg/dL [place] Interpretation and review of laboratory results Abnormal [place] Potassium [Moles/Vol] 3.9 mmol/L 3.6 - 4.9 mmol/L [place] Protein [Mass/Vol] 8.7 g/dL High 6 - 8 g/dL [place] Sodium [Moles/Vol] 140 mmol/L 135 - 144 mmol/L [place] Urea nitrogen [Mass/Vol] 9 mg/dL 5 - 18 mg/dL [place] HCG Qualitative, Serumon hCG Qual Negative NEGATIVE [place] Comment on above: Specimens with hCG l evels near the threshold of the test (25 mIU/mL) may give a negative or indeterminate result. In such cases, another test should be performed with a new specimen in 48-72 hours. If early is suspected clinically in this setting, correlation with quantitative serum b-hCG level is suggested. [facility] has confirmed the use of plasma for this test. This has not been cleared or approved by the U.S. Food and Drug Administration. The FDA has determined that such clearance is not necessary. Otheron 01-12-2019 Immature granulocytes (Bld) [#/Vol] NOT REPORTED [place] HCG QUALITATIVE, URINEon HCG ( test) Ql (U) Negative [employer] Otheron 12-18-2018 Interpretation and review of laboratory results Abnormal [employer] URINALYSIS, MACROon 12-19-19 19 Bilirubin Ql (U) Negative NEGATIVE [facility] Clarity (U) CLEAR CLEAR [facility] Color (U) YELLOW YELLOW [facility] Glucose Test strip (U) [Mass/Vol] Negative NEGATIVE mg/dl [facility] [employer] Hemoglobin Ql (U) Negative NEGATIVE [facility] Ketones (U) [Mass/Vol] Negative NEGATIVE mg/dl [facility] Leukocyte esterase Test strip Ql (U) Negative NEGATIVE [facility] Nitrite Ql (U) Negative NEGATIVE [facility] pH (U) 7.0 [pH] [facility] Protein Ql (U) TRACE Abnormal NEGATIVE mg/dl [facility] Specific gravity (U) [Rel density] 1.025 [employer] Urobilinogen (U) [Mass/Vol] 0.2 [employer] URINE HCG QUALon 12-18-2018 Beta HCG ( test) Ql (U) Negative Normal [facility] URINE MACROSCOPICon 12-19-19 19 Bilirubin Ql (U) Negative Normal NEGATIVE [facility] Clarity (U) CLEAR Normal CLEAR [facility] Color (U) YELLOW Normal YELLOW [facility] Glucose Ql (U) Negative Normal NEGATIVE [facility] pH (U) 7.0 [pH] Normal 5.0-7.0 [facility] Protein (U) [Mass/Vol] TRACE Abnormal NEGATIVE [facility] URINE HEMOGLOBIN Negative Normal NEGATIVE [facility] URINE KETONE Negative Normal NEGATIVE [facility] URINE LEUKOTEST Negative Normal NEGATIVE [facility] URINE NITRATES Negative Normal NEGATIVE [facility] URINE SPEC GRAVITY 1.025 Normal 1.010-1.025 [facility] Urobilinogen Qn (U) 0.2 {Manuel'U}/dL Normal 0.2-1.0 [facility] URINE MICROSCOPICon 12-19-19 19 Bacteria LM.HPF (Urine sed) [#/Area] TRACE Abnormal NEGATIVE [facility] Casts LM.LPF (Urine sed) [#/Area] NONE Normal NONE [facility] CRYSTAL NONE Normal NONE [facility] Epithelial cells LM.HPF (Urine sed) [#/Area] 10 TO 20 Normal [facility] Mucus Ql (Urine sed) Negative Normal NEGATIVE [facility] RBC (U) [#/Vol] Negative Normal NEGATIVE [facility] URINE COMMENT CULTURE CRITERIA NOT MET, NO CULTURE PERFORMED. Normal [facility] WBC (U) [#/Vol] 1 TO 5 Normal NEGATIVE [facility] Bacteria LM.HPF (Urine sed) [#/Area] TRACE Abnormal NEGATIVE [facility] Casts LM.LPF (Urine sed) [#/Area] NONE NONE /LPF [facility] Crystals LM Nom (Urine sed) NONE NONE [facility] Epithelial cells LM Ql (Urine sed) 10 TO 20 /HPF [facility] Mucus Ql (Urine sed) Negative NEGATIVE [facility] RBC LM.HPF (Urine sed) [#/Area] Negative NEGATIVE /HPF [facility] Urine sediment comments LM Vinnie (Urine sed) CULTURE CRITERIA NOT MET, NO CULTURE PERFORMED. [facility] WBC LM.HPF (Urine sed) [#/Area] 1 TO 5 NEGATIVE /HPF [facility] Strep Screen Group A Throato n 12-16-2018 S. pyogenes Ag IA Ql (Unsp spec) Rapid Strep A negative. A negative Rapid Group A Strep Screen result does not rule out the possibility of Group A Streptococci in the specimen. The [place] [employer] recommends confirmation testing. Therefore, a Group A Strep DNA test will be performed. [place] Special Requests NOT REPORTED [place] Specimen Description .THROAT [place] XR CHEST STANDARD (2 VW)on Negative chest. [place] EXAM: XR CHEST (2 VW) HISTORY: Reason for exam:->cough COMPARISON: None. TECHNIQUE: 2 views chest FINDINGS: Heart size normal. Lungs clear. Bony thorax and upper abdomen normal. [place], [place] Incoming Radiant Results From [email or web address] - 12/16/2018 5:28 PM EDT EXAM: XR CHEST (2 VW) HISTORY: Reason for exam:->cough COMPARISON: None. TECHNIQUE: 2 views chest FINDINGS: Heart size normal. Lungs clear. Bony thorax and upper abdomen normal. IMPRESSION: Negative chest. [place] Vital Signs Date Time Vital Sign Value Performing Clinician Shadi ag 04-13-2024 09:58-0500 Body weight 74.57 kg Jewell MATTHEWS Work Phone: [facility] 04-13-2024 09:58-0500 Diastolic blood pressure 80 mm[Hg] Jewell MATTHEWS Work Phone: [facility] 04-13-2024 09:58-0500 Systolic blood pressure 122 mm[Hg] Jewell MATTHEWS Work Phone: [facility] 04-06-2024 09:13-0500 Body weight 73.66 kg [employer] Work Phone: [facility] 04-06-2024 09:13-0500 Diastolic blood pressure 74 mm[Hg] Meir Jamal DO Work Phone: [facility] 04-06-2024 09:13-0500 Systolic blood pressure 120 mm[Hg] Meir Berry DO Work Phone: [facility] 03-06-2024 10:11-0500 Body weight 72.18 kg Jewell Macedo PA Work Phone: [facility] 03-06-2024 10:11-0500 Diastolic blood pressure 64 mm[Hg] Jewell Remington PA Work Phone: [facility] 03-06-2024 10:11-0500 Systolic blood pressure 110 mm[Hg] Jewell Remington PA Work Phone: [facility] 02-21-2024 10:13-0500 Body height 160 cm Doyle Amaro MD Work Phone: [facility] 02-21-2024 10:13-0500 Body mass index (BMI) [Ratio] 28.52 kg/m2 Doyle Amaro MD Work Phone: [facility] 02-21-2024 10:13-0500 Body weight 73.03 kg Doyle Amaro MD Work Phone: [facility] 02-21-2024 10:13-0500 Diastolic blood pressure 70 mm[Hg] Doyle Amaro MD Work Phone: [facility] 02-21-2024 10:13-0500 Systolic blood pressure 105 mm[Hg] Doyle Amaro MD Work Phone: [facility] 02-07-2024 11:12-0500 Body mass index (BMI) [Ratio] 28.63 kg/m2 Malka Allison CLAIM TRAINEE[employer]ERIAL PHOTOGRAPHER Work Phone: [facility] 02-07-2024 11:12-0500 Body weight 73.3 kg Malka Allison CLAIM TRAINEE-[employer]ERIAL PHOTOGRAPHER Work Phone: [facility] 02-07-2024 11:12-0500 Diastolic blood pressure 60 mm[Hg] Malka Allison CLAIM TRAINEE-AERIAL PHOTOGRAPHER Work Phone: [facility] 02-07-2024 11:12-0500 Systolic blood pressure 108 mm[Hg] Malka Allison CLAIM TRAINEE-AERIAL PHOTOGRAPHER Work Phone: [facility] 01-10-2024 09:44-0500 Body mass index (BMI) [Ratio] 27.56 kg/m2 Nahed Stewart MD Work Phone: [facility] 01-10-2024 09:44-0500 Body weight 70.58 kg Nahed Stewart MD Work Phone: [facility] 01-10-2024 09:44-0500 Diastolic blood pressure 60 mm[Hg] Nahed Stewart MD Work Phone: [facility] 01-10-2024 09:44-0500 Systolic blood pressure 100 mm[Hg] Nahed Stewart MD Work Phone: [facility] 12-13-2023 09:17-0400 Body mass index (BMI) [Ratio] 26.04 kg/m2 Nahed Stewart MD Work Phone: [facility] 12-13-2023 09:17-0400 Body weight 66.68 kg Nahed Stewart MD Work Phone: [facility] 12-13-2023 09:17-0400 Diastolic blood pressure 60 mm[Hg] Nahed Stewart MD Work Phone: [facility] 12-13-2023 09:17-0400 Systolic blood pressure 100 mm[Hg] Nahed Stewart MD Work Phone: [facility] 11-11-2023 13:33-0400 Body mass index (BMI) [Ratio] 24.98 kg/m2 Nahed Stewart MD Work Phone: [employer] [facility] 11-11-2023 13:33-0400 Body weight 63.96 kg Nahed Stewart MD Work Phone: [facility] 11-11-2023 13:33-0400 Diastolic blood pressure 56 mm[Hg] Nahed Stewart MD Work Phone: [facility] 11-11-2023 13:33-0400 Systolic blood pressure 112 mm[Hg] Nahed Stewart MD Work Phone: [facility] 10-14-2023 13:27-0400 Body height 160 cm Doyle Amaro MD Work Phone: [facility] 10-14-2023 13:27-0400 Body mass index (BMI) [Ratio] 24.62 kg/m2 Doyle Amaro MD Work Phone: [facility] 10-14-2023 13:27-0400 Body weight 63.05 kg Doyle Amaro MD Work Phone: [facility] 10-14-2023 13:27-0400 Diastolic blood pressure 62 mm[Hg] Doyle Amaro MD Work Phone: [facility] 10-14-2023 13:27-0400 Systolic blood pressure 120 mm[Hg] Doyle Amaro MD Work Phone: [facility] 09-26-2023 19:52-0400 Diastolic blood pressure 86 mm[Hg] [facility] 09-26-2023 19:52-0400 Heart rate 96 /min [facility] 09-26-2023 19:52-0400 Mean blood pressure 97 mm[Hg] [facility] 09-26-2023 19:52-0400 Respiratory rate 23 /min [facility] 09-26-2023 19:52-0400 SaO2% (BldA) [Mass fraction] 99 % [facility] 09-26-2023 19:52-0400 Systolic blood pressure 120 mm[Hg] [facility] 09-26-2023 18:46-0400 Diastolic blood pressure 81 mm[Hg] [facility] 09-26-2023 18:46-0400 Heart rate 89 /min Justin [facility] 09-26-2023 18:46-0400 Mean blood pressure 96 mm[Hg] [facility] 09-26-2023 18:46-0400 Respiratory rate 18 /min [facility] 09-26-2023 18:46-0400 SaO2% (BldA) [Mass fraction] 98 % [facility] 09-26-2023 18:46-0400 Systolic blood pressure 126 mm[Hg] Justin Kash [facility] 09-26-2023 18:00-0400 Heart rate 97 /min Justin Kash [facility] 09-26-2023 18:00-0400 Mean blood pressure 94 mm[Hg] Justin Kash [facility] 09-26-2023 18:00-0400 SaO2% (BldA) [Mass fraction] 100 % Justin Kash [facility] 09-26-2023 18:00-0400 Systolic blood pressure 121 mm[Hg] Justin Kash [facility] 09-26-2023 16:57-0400 Body temperature 98.96 [degF] Justin Kash [facility] 09-26-2023 16:57-0400 Heart rate 94 /min Justin Kash [facility] 09-26-2023 16:57-0400 Respiratory rate 18 /min Justin Kash [facility] 09-26-2023 16:42-0400 Body temperature 98.6 [degF] Justin Kash [facility] 09-26-2023 16:42-0400 Heart rate 106 /min Justin Hewitt [facility] 09-26-2023 16:42-0400 Respiratory rate 18 /min Justin Hewitt [facility] 09-24-2023 13:28-0400 Body height 160 cm [place] [id number] [facility] 09-24-2023 13:28-0400 Body mass index (BMI) [Ratio] 23.91 kg/m2 [address] 09-24-2023 13:28-0400 Body weight 61.[address] 09-24-2023 13:28-0400 Diastolic blood pressure 68 mm[Hg] [address] 09-24-2023 13:28-0400 Systolic blood pressure 112 mm[Hg] [place] [id number] [facility] 09-16-2023 08:37-0400 Body temperature 98.24 [degF] [facility] 09-16-2023 08:37-0400 Diastolic blood pressure 78 mm[Hg] [facility] 09-16-2023 08:37-0400 Heart rate 76 /min [facility] 09-16-2023 08:37-0400 Respiratory rate 18 /min [facility] 09-16-2023 08:37-0400 SaO2% (BldA) [Mass fraction] 100 % [facility] 09-16-2023 08:37-0400 Systolic blood pressure 126 mm[Hg] [facility] 09-13-2023 10:56-0400 Blood Pressure Location Pari Underwood [facility] [place] 09-13-2023 10:56-0400 Body temperature 97.88 [degF] Pari Underwood [facility] 09-13-2023 10:56-0400 Diastolic blood pressure 68 mm[Hg] Pari Underwood [facility] 09-13-2023 10:56-0400 Heart rate 74 /min Pari Underwood [facility] [place] 09-13-2023 10:56-0400 Respiratory rate 18 /min Pari Underwood [facility] 09-13-2023 10:56-0400 SaO2% (BldA) [Mass fraction] 98 % Pari Underwood [facility] 09-13-2023 10:56-0400 Systolic blood pressure 110 mm[Hg] Pari Underwood [facility] 08-13-2023 14:20-0400 Blood Pressure Location Pari Underwood [facility] 08-13-2023 14:20-0400 Body temperature 97.88 [degF] Pari Underwood [facility] [place] 08-13-2023 14:20-0400 Diastolic blood pressure 80 mm[Hg] Pari Underwood [facility] [place] 08-13-2023 14:20-0400 Heart rate 88 /min Pari Underwood [facility] [place] 08-13-2023 14:20-0400 Respiratory rate 16 /min Pari Underwood [facility] 08-13-2023 14:20-0400 SaO2% (BldA) [Mass fraction] 99 % Pari Tateer [facility] 08-13-2023 14:20-0400 Systolic blood pressure 122 mm[Hg] Pari Bazzizier [facility] 08-04-2023 14:57-0400 Body mass index (BMI) [Ratio] 22.96 kg/m2 Nahed Stewart MD Work Phone: [facility] 08-04-2023 14:57-0400 Body weight 58.79 kg Nahed Stewart MD Work Phone: [facility] 08-04-2023 14:57-0400 Diastolic blood pressure 62 mm[Hg] Nahed Stewart MD Work Phone: [facility] 08-04-2023 14:57-0400 Systolic blood pressure 120 mm[Hg] Nahed Stewart MD Work Phone: [facility] 04-16-2023 14:16-0500 Body mass index (BMI) [Ratio] 20.87 kg/m2 Nahed Stewart MD Work Phone: [employer] [facility] 04-16-2023 14:16-0500 Body weight 53.43 kg Nahed Stewart MD Work Phone: [facility] 04-16-2023 14:16-0500 Diastolic blood pressure 76 mm[Hg] Nahed Stewart MD Work Phone: [facility] 04-16-2023 14:16-0500 Systolic blood pressure 118 mm[Hg] Nahed Stewart MD Work Phone: [employer] [facility] 10-23-2022 09:25-0400 Body height 160 cm Nahed Stewart MD Work Phone: [employer] [facility] 10-23-2022 09:25-0400 Body mass index (BMI) [Ratio] 21.33 kg/m2 Nahed Stewart MD Work Phone: [facility] [facility] 10-23-2022 09:25-0400 Body weight 54.61 kg Nahed Stewart MD Work Phone: [facility] 10-23-2022 09:25-0400 Diastolic blood pressure 68 mm[Hg] Nahed Stewart MD Work Phone: [facility] 10-23-2022 09:25-0400 Systolic blood pressure 100 mm[Hg] Nahed Stewart MD Work Phone: [facility] 09-01-2022 13:16-0400 Body mass index (BMI) [Ratio] 21.36 kg/m2 Nahed Stewart MD Work Phone: [facility] 09-01-2022 13:16-0400 Body weight 54.7 kg Nahed Stewart MD Work Phone: [facility] 09-01-2022 13:16-0400 Diastolic blood pressure 66 mm[Hg] Nahed Stewart MD Work Phone: [facility] 09-01-2022 13:16-0400 Systolic blood pressure 120 mm[Hg] Nahed Stewart MD Work Phone: [facility] 06-08-2022 13:20-0400 Body temperature 98.71 [degF] [facility]-08[facility] 13:20-0400 Diastolic blood pressure 70 mm[Hg] [facility] 06-08-2022 13:20-0400 Heart rate 82 /[facility] 06-08-2022 13:20-0400 Respiratory rate 18 /min [facility] 06-08-2022 13:20-0400 SaO2% (BldA) [Mass fraction] 97 % [facility] 06-08-2022 13:20-0400 Systolic blood pressure 117 mm[Hg] [facility] 04-22-2022 09:40-0500 Body mass index (BMI) [Ratio] 21.01 kg/m2 Nahed Stewart MD Work Phone: [facility] 04-22-2022 09:40-0500 Body weight 53.8 kg Nahed Stewart MD Work Phone: [facility] 04-22-2022 09:40-0500 Diastolic blood pressure 62 mm[Hg] Nahed Stewart MD Work Phone: [employer] [facility] 04-22-2022 09:40-0500 Systolic blood pressure 110 mm[Hg] Nahed Stewart MD Work Phone: [employer] [facility] 03-20-2022 14:35-0500 Body mass index (BMI) [Ratio] 22.21 kg/m2 Nahed Stewart MD Work Phone: [employer] [facility] 03-20-2022 14:35-0500 Body weight 56.88 kg Nahed Stewart MD Work Phone: [employer] [facility] 03-20-2022 14:35-0500 Diastolic blood pressure 70 mm[Hg] Nahed Stewart MD Work Phone: [employer] [facility] 03-20-2022 14:35-0500 Systolic blood pressure 118 mm[Hg] Nahed Stewart MD Work Phone: [employer] [facility] 10-24-2021 14:45-0400 Body height 160 cm Nahed Stewart MD Work Phone: [employer] [facility] 10-24-2021 14:45-0400 Body mass index (BMI) [Ratio] 23.03 kg/m2 Nahed Stewart MD Work Phone: [employer] [facility] 10-24-2021 14:45-0400 Body weight 58.97 kg Nahed Stewart MD Work Phone: [employer] [facility] 10-24-2021 14:45-0400 Diastolic blood pressure 62 mm[Hg] Nahed Stewart MD Work Phone: [employer] [facility] 10-24-2021 14:45-0400 Systolic blood pressure 120 mm[Hg] Nahed Stewart MD Work Phone: [employer] [facility] 08-05-2021 09:20-0400 Body mass index (BMI) [Ratio] 28.09 kg/m2 Nahed Stewart MD Work Phone: [employer] [facility] 08-05-2021 09:20-0400 Body weight 71.94 kg Nahed Stewart MD Work Phone: [phone] [place] [address] 08-05-2021 09:20-0400 Diastolic blood pressure 56 mm[Hg] Nahed Stewart MD Work Phone: [facility] 08-05-2021 09:20-0400 Systolic blood pressure 98 mm[Hg] Nahed Stewart MD Work Phone: [facility] 07-28-2021 09:03-0400 Body height 160 cm Doyle Amaro MD Work Phone: [facility] 07-28-2021 09:03-0400 Body mass index (BMI) [Ratio] 27.46 kg/m2 Doyle Amaro MD Work Phone: [facility] 07-28-2021 09:03-0400 Body weight 70.31 kg Doyle Amaro MD Work Phone: [facility] 07-28-2021 09:03-0400 Diastolic blood pressure 64 mm[Hg] Doyle Amaro MD Work Phone: [phone] [place] [address] 07-28-2021 09:03-0400 Systolic blood pressure 140 mm[Hg] Doyle Amaro MD Work Phone: [facility] 07-14-2021 09:00-0400 Body height 160 cm Malka Allison APRN-AERIAL PHOTOGRAPHER Work Phone: [facility] 07-14-2021 09:00-0400 Body mass index (BMI) [Ratio] 26.75 kg/m2 Malka Allison APRN-AERIAL PHOTOGRAPHER Work Phone: [facility] 07-14-2021 09:00-0400 Body weight 68.49 kg Malka Allison APRN-AERIAL PHOTOGRAPHER Work Phone: [facility] 07-14-2021 09:00-0400 Diastolic blood pressure 62 mm[Hg] Malka Allison APRN-AERIAL PHOTOGRAPHER Work Phone: [facility] 07-14-2021 09:00-0400 Systolic blood pressure 106 mm[Hg] Malka Allison APRN-AERIAL PHOTOGRAPHER Work Phone: [phone] [place] [address] 06-30-2021 09:33-0400 Body height 160 cm Doyle Amaro MD Work Phone: [facility] 06-30-2021 09:33-0400 Body mass index (BMI) [Ratio] 26.04 kg/m2 Doyle Amaro MD Work Phone: [facility] 06-30-2021 09:33-0400 Body weight 66.68 kg Doyle Amaro MD Work Phone: [facility] 06-30-2021 09:33-0400 Diastolic blood pressure 64 mm[Hg] Doyle Amaro MD Work Phone: [facility] 06-30-2021 09:33-0400 Systolic blood pressure 102 mm[Hg] Doyle Amaro MD Work Phone: [facility] 06-16-2021 09:08-0400 Body height 160 cm Malka Allison APRN-AERIAL PHOTOGRAPHER Work Phone: [facility] 06-16-2021 09:08-0400 Body mass index (BMI) [Percentile] Per age and sex 84.17 % Malka Allison CLAIM TRAINEE-AERIAL PHOTOGRAPHER Work Phone: [facility] 06-16-2021 09:08-0400 Body mass index (BMI) [Ratio] 25.86 kg/m2 Malka Allison CLAIM TRAINEE-AERIAL PHOTOGRAPHER Work Phone: [facility] 06-16-2021 09:08-0400 Body weight 66.22 kg Malka Allison CLAIM TRAINEE-AERIAL PHOTOGRAPHER Work Phone: [facility] 06-16-2021 09:08-0400 Diastolic blood pressure 64 mm[Hg] Malka Allison APRN-AERIAL PHOTOGRAPHER Work Phone: [facility] 06-16-2021 09:08-0400 Systolic blood pressure 106 mm[Hg] Malka Allison APRN-AERIAL PHOTOGRAPHER Work Phone: [facility] 06-02-2021 09:07-0400 Body mass index (BMI) [Percentile] Per age and sex 79.15 % Nahed Stewart MD Work Phone: [employer] [facility] 06-02-2021 09:07-0400 Body mass index (BMI) [Ratio] 24.8 kg/m2 Nahed Stewart MD Work Phone: [employer] [facility] 06-02-2021 09:07-0400 Body weight 63.5 kg Nahed Stewart MD Work Phone: [employer] [facility] 06-02-2021 09:07-0400 Diastolic blood pressure 56 mm[Hg] Nahed Stewart MD Work Phone: [employer] [facility] 06-02-2021 09:07-0400 Systolic blood pressure 100 mm[Hg] Nahed Stewart MD Work Phone: [employer] [facility] 05-13-2021 10:08-0500 Body height 160 cm Malka Allison CLAIM TRAINEE-AERIAL PHOTOGRAPHER Work Phone: [employer] [facility] 05-13-2021 10:08-0500 Body mass index (BMI) [Percentile] Per age and sex 72.35 % Malka Allison CLAIM TRAINEE-AERIAL PHOTOGRAPHER Work Phone: [employer] [facility] 05-13-2021 10:08-0500 Body mass index (BMI) [Ratio] 23.74 kg/m2 Malkaignacia Allison CLAIM TRAINEE-AERIAL PHOTOGRAPHER Work Phone: [employer] [facility] 05-13-2021 10:08-0500 Body weight 60.78 kg Malka Allison CLAIM TRAINEE-AERIAL PHOTOGRAPHER Work Phone: [employer] [facility] 05-13-2021 10:08-0500 Diastolic blood pressure 62 mm[Hg] Malka Allison CLAIM TRAINEE-AERIAL PHOTOGRAPHER Work Phone: [employer] [facility] 05-13-2021 10:08-0500 Systolic blood pressure 104 mm[Hg] Malka Allison CLAIM TRAINEE-AERIAL PHOTOGRAPHER Work Phone: [facility] 04-22-2021 14:24-0500 Body mass index (BMI) [Percentile] Per age and sex 72.49 % Nahed Stewart MD Work Phone: [employer] [facility] 04-22-2021 14:24-0500 Body mass index (BMI) [Ratio] 23.74 kg/m2 Nahed Stewart MD Work Phone: [facility] 04-22-2021 14:24-0500 Body weight 60.78 kg Nahed Stewart MD Work Phone: [facility] 04-22-2021 14:24-0500 Diastolic blood pressure 70 mm[Hg] Nahed Stewart MD Work Phone: [employer] [facility] [facility] 04-22-2021 14:24-0500 Systolic blood pressure 112 mm[Hg] Nahed Stewart MD Work Phone: [employer] [facility] 03-13-2021 10:20-0500 Body height 160 cm Doyle Amaro MD Work Phone: [facility] 03-13-2021 10:20-0500 Body mass index (BMI) [Percentile] Per age and sex 59.91 % Doyle Amaro MD Work Phone: [facility] 03-13-2021 10:20-0500 Body mass index (BMI) [Ratio] 22.32 kg/m2 Doyle Amaro MD Work Phone: [employer] [facility] 03-13-2021 10:20-0500 Body weight 57.15 kg Doyle Amaro MD Work Phone: [employer] [facility] 03-13-2021 10:20-0500 Diastolic blood pressure 76 mm[Hg] Doyle Amaro MD Work Phone: [employer] [facility] 03-13-2021 10:20-0500 Systolic blood pressure 122 mm[Hg] Doyle Amaro MD Work Phone: [employer] [facility] 02-06-2021 09:17-0500 Body height 160 cm Doyle Amaro MD Work Phone: [employer] [facility] 02-06-2021 09:17-0500 Body mass index (BMI) [Percentile] Per age and sex 56.34 % Doyle Amaro MD Work Phone: [facility] 02-06-2021 09:17-0500 Body mass index (BMI) [Ratio] 21.97 kg/m2 Doyle Amaro MD Work Phone: [facility] 02-06-2021 09:17-0500 Body weight 56.25 kg Doyle Amaro MD Work Phone: [facility] 02-06-2021 09:17-0500 Diastolic blood pressure 70 mm[Hg] Doyle Amaro MD Work Phone: [facility] 02-06-2021 09:17-0500 Systolic blood pressure 112 mm[Hg] Doyle Amaro MD Work Phone: [facility] 01-14-2021 09:45-0500 Body height 160 cm Avg Gurjit Gal [id number] [facility] 01-14-2021 09:45-0500 Body mass index (BMI) [Percentile] Per age and sex 60.4 % Avg Gurjit Gal [id number] [facility] 01-14-2021 09:45-0500 Body mass index (BMI) [Ratio] 22.32 kg/m2 Avg Gurjit Gal [id number] [facility] 01-14-2021 09:45-0500 Body weight 57.15 kg Avg Gurjit Gal [id number] [facility] 01-14-2021 09:45-0500 Diastolic blood pressure 72 mm[Hg] Avg Gurjit Gal [id number] [facility] 01-14-2021 09:45-0500 Systolic blood pressure 112 mm[Hg] Avg Gurjit Gal [id number] [facility] 09-28-2019 08:35-0400 BP Diastolic 68 mm[Hg] [facility] [place] 09-28-2019 08:35-0400 BP Systolic 140 mm[Hg] [facility] [place] 09-28-2019 08:35-0400 Pulse (Heart Rate) 92 /min [place] [facility], [place] 09-28-2019 08:35-0400 Pulse Oximetry 99 % [facility] [place] 09-28-2019 08:35-0400 Respiratory Rate 16 /min [place] [facility] 09-28-2019 06:54-0400 Body Temperature 98.29 [degF] [facility] [place] [place] 09-27-2019 22:49-0400 BMI (Body Mass Index) 21.43 kg/m2 [facility] [place] 09-27-2019 22:49-0400 Body weight 54.88 kg [facility] [place] 09-27-2019 22:49-0400 Height 160 cm [facility] [place] 05-19-2019 19:55-0400 BP Diastolic 59 mm[Hg] [facility] [place] 05-19-2019 19:55-0400 BP Systolic 114 mm[Hg] [facility] [place] 05-19-2019 19:55-0400 Pulse (Heart Rate) 66 /min [facility], [place] 05-19-2019 19:55-0400 Pulse Oximetry 100 % [facility] [place] 05-19-2019 19:55-0400 Respiratory Rate 18 /min [facility] [place] 05-19-2019 18:36-0400 BMI (Body Mass Index) 21.97 kg/m2 [facility] [place] 05-19-2019 18:36-0400 Body Temperature 98.29 [degF] [facility] [place] 05-19-2019 18:36-0400 Body weight 56.25 kg [facility] [place] 05-19-2019 18:36-0400 Height 160 cm [facility] [place] 03-08-2019 18:31-0500 Body temperature 98.1 [degF] Peter Petty MD Work Phone: [employer] Work Phone: 03-08-2019 18:31-0500 Body weight 57.15 kg Peter Petty MD Work Phone: [employer] Work Phone: 03-08-2019 18:31-0500 Diastolic blood pressure 90 mm[Hg] Peter Petty MD Work Phone: [employer] Work Phone: 03-08-2019 18:31-0500 Heart rate 86 /min Peter Petty MD Work Phone: [employer] Work Phone: 03-08-2019 18:31-0500 Respiratory rate 20 /min Peter Petty MD Work Phone: [employer] Work Phone: 03-08-2019 18:31-0500 SaO2% (BldA) [Mass fraction] 100 % Peter Petty MD Work Phone: [employer] Work Phone: 03-08-2019 18:31-0500 Systolic blood pressure 139 mm[Hg] Peter Petty MD Work Phone: [employer] Work Phone: 01-12-2019 23:01-0500 Pulse Oximetry 99 % [facility] [place] [facility] [place] 01-12-2019 22:49-0500 BP Diastolic 80 mm[Hg] [facility] [place] 01-12-2019 22:49-0500 BP Systolic 107 mm[Hg] [facility] [place] 01-12-2019 22:17-0500 Body Temperature 97.59 [degF] [facility] [place] 01-12-2019 22:17-0500 Body weight 55.02 kg [facility] [place] [facility] [place] 01-12-2019 22:17-0500 Pulse (Heart Rate) 64 /min [facility] [place] 01-12-2019 22:17-0500 Respiratory Rate 16 /min [facility] [place] 12-18-2018 14:52-0400 Height 160 [facility] 12-18-2018 14:47-0400 Body Temperature 99.81 [degF] [facility] 12-18-2018 14:47-0400 BP Diastolic 62 mm[Hg] [facility] 12-18-2018 14:47-0400 BP Systolic 108 mm[Hg] [facility] 12-18-2018 14:47-0400 Pulse (Heart Rate) 82 /min [facility] 12-18-2018 14:47-0400 Pulse Oximetry 96 % [facility] 12-18-2018 14:47-0400 Respiratory Rate 18 /min [facility] 12-16-2018 16:47-0400 BP Diastolic 46 mm[Hg] [place] 12-16-2018 16:47-0400 BP Systolic 94 mm[Hg] [place] 12-16-2018 16:46-0400 Body Temperature 99.19 [degF] [place], [place] 12-16-2018 16:46-0400 Body weight 55.2 kg [place] 12-16-2018 16:46-0400 Pulse (Heart Rate) 84 /min [place], [place] 12-16-2018 16:46-0400 Pulse Oximetry 100 % [place] 12-16-2018 16:46-0400 Respiratory Rate 16 /min [place] Encounters Encounter Date Encounter Type Care Provider Facility Start: 04-13-2024 End: 04-13-2024 Bamboo flowsheet Jewell MATTHEWS Work Phone: [facility] Start: 04-13-2024 End: 04-13-2024 Bamboo flowsheet Jewell MATTHEWS Work Phone: [facility] Start: 04-13-2024 End: 04-13-2024 flow sheet Jewell MATTHEWS Work Phone: [facility] Comment on above: 38 weeks gestation o f ; Third trimester Start: 04-06-2024 End: 04-06-2024 Bamboo flowsheet Meir [...] Start: 03-30-2024 End: 03-30-2024 Bamboo flowsheet Jewell Macedo PA Work Phone: [facility] Start: 03-30-2024 End: 04-04-2024 Bamboo flowsheet Jewell Macedo PA Work Phone: [facility] Start: 03-30-2024 End: 04-04-2024 Clinisync Result Encounter Jewell MATTHEWS Work Phone: [facility] Unsolicited Start: 03-30-2024 End: 03-30-2024 ambulatory JEWELL REMINGTON Not Available Start: 03-06-2024 End: 03-06-2024 Bamboo flowsheet Jewell Macedo PA Work Phone: [facility] Start: 03-06-2024 End: 03-06-2024 Bamboo flowsheet Jewell Macedo PA Work Phone: [facility] Start: 03-06-2024 End: 03-06-2024 ambulatory JEWELL REMINGTON Not Available Start: 03-06-2024 End: 03-06-2024 Office [...] care visit Doyle Amaro MD Work Phone: [place] [employer] Comment on above: Encounter for superv ision of other normal , third trimester (Primary Dx); 30 weeks gestation of Start: 02-21-2024 ambulatory DOYLE AMARO [facility] Start: 02-18-2024 End: 02-18-2024 Clinisync Result Encounter Meir Jamal DO Work Phone: [facility] Unsolicited Start: 02-18-2024 End: 02-18-2024 Clinisync Result Encounter Meir Jamal DO Work Phone: [facility] Unsolicited Start: 02-07-2024 End: 02-07-2024 Subsequent care visit Malka Allison APRN-AERIAL PHOTOGRAPHER Work Phone: [facility] [employer] Comment on above: Encounter for superv ision of other normal , third trimester (Primary Dx); 28 weeks gestation of Start: 02-07-2024 [facility] Start: 01-25-2024 End: 01-25-2024 ambulatory COAL HIKERMarques Fuentes Facility:[facility] Start: 01-24-2024 ambulatory Justin Kash Facility:F [facility] Start: 01-10-2024 End: 01-10-2024 Subsequent care visit Nahed Stewart MD Work Phone: [place] [employer] Comment on above: Encounter for superv ision of other normal , second trimester (Primary Dx) Start: 01-10-2024 [facility] Start: 12-13-2023 End: 12-13-2023 Subsequent care visit Nahed Stewart MD Work Phone: [place] [employer] Comment on above: Encounter for superv ision of other normal in second trimester (Primary Dx) Start: 12-13-2023 [facility] Start: 12-13-2023 End: 12-13-2023 Subsequent hospital visit by physician Nahed Stewart MD Work Phone: [facility] Start: 11-11-2023 End: 11-11-2023 Subsequent care visit Nahed Stewart MD Work Phone: [place] [employer] Comment on above: Encounter for superv ision of other normal in first trimester (Primary Dx); 16 weeks gestation of Start: 11-11-2023 End: 11-11-2023 Subsequent hospital visit by physician Doyle Amaro MD Work Phone: [facility] Start: 11-11-2023 [facility] Start: 10-14-2023 End: 10-14-2023 Subsequent care visit Doyle Amaro MD Work Phone: [place] [employer] Comment on above: Encounter for superv ision of other normal in first trimester (Primary Dx); Hx of herpes genitalis; Family history of diabetes mellitus in sister; 12 weeks gestation of Start: 10-14-2023 ambulatory DOYLE AMARO [facility] Start: 09-26-2023 End: 09-26-2023 Emergency department patient visit Justin LizamaRonan Hewitt [facility] Start: 09-24-2023 End: 09-24-2023 Office outpatient visit 5 minutes Nahed Stewart MD Work Phone: [place] [employer] Comment on above: Encounter for superv ision of other normal in first trimester (Primary Dx); 9 weeks gestation of ; Family history of diabetes mellitus in sister; HSV infection; Major depressive disorder, recurrent episode, moderate Start: 09-24-2023 ambulatory NAHED Cowart [facility] Start: 09-16-2023 End: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 05/28/17 Yacht Rigger Relationship Specialty Start Date End Date Kelli Amaya MD PCP - [facility] 05/28/17 Yacht Rigger Relationship Specialty Start Date End Date Kelli Amaya MD PCP - [facility] 05/28/17 FOR RECORDS PERTAINING TO PATIENTS [...] BE BASED ON THE PRIMARY CLINICAL RECORDS. [facility] [employer] [facility]. provides no warranty or guarantee of the accuracy or completeness of information in this document.
--- NOTE | 2024-04-13 20:17 | US_ITS ---
[address] [address] Patient Name: DEVAN SANTANA MRN: [id number] date: 2000 Sex: F Assigned Patient Location: [facility] Current Patient Location: Accession/Order Number: [id number] Exam Date: 04/13/2024 20:24 Report Date: 04/14/2024 07:52 At the request of: CHARLINE MIRZA Procedure: US OB BPP w non-stress EXAMINATION: US OB BPP w non-stress HISTORY: OBTAIN BIWEEKLY NST AND WEEKLY BPP/NST COMPARISON: No relevant comparison available. TECHNIQUE: Ultrasound biophysical profile was performed in the radiology department. non-reactive stress testing was performed by nursing staff in the birthing center. FINDINGS: BREATHING MOVEMENTS: 2 GROSS BODY MOVEMENTS: 2 TONE: 2 QUALITATIVE AMNIOTIC FLUID VOLUME: 2 PRESENTATION: CEPHALIC HEART RATE: 144.39 bpm AMNIOTIC FLUID VOLUME: 13.7 cm GESTATIONAL AGE: 38 weeks 2 days Other: Nuchal cord US/US OB BPP w non-stress IMPRESSION: Total biophysical profile score: 8 Electronically authenticated by: BERTA COLLAZO Date: 04/14/2024 07:52
[2024-04-13 20:41] VITALS: BP 108/71; PULSE 81
== END 2024-04-13 21:05 | disposition home or self-care (01) ==
LOC: US 20:11 → FBC 20:13
PROVIDERS: Visit Provider Obstetrics & Gynecology
DX: O26.893 Other specified pregnancy related conditions, third trimester (principal); Z3A.38 38 weeks gestation of pregnancy
CPT/HCPCS: 59025; 76818

== ENCOUNTER 2024-04-17 01:30 | Outpatient (OUT) | payer OTHER, MEDICAID, SELFPAY ==
--- OUTSIDE RECORDS SUMMARY | 2024-04-17 01:35 | XMS_ITS | CCD ---
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 Clinical Summary Person Information Name: KATHRIN SANTANA[place] Age: 23 Years : 2000 Sex: Female Language: Pakistani PCP: Pari Underwood PA-C Marital Status: Single [...] 09/16/2023 09:41:47 09/16/2023 09:41:47 09/16/2023 09:41:47 ADDRESS: [address] [place] [address] [address] [facility] [phone] PHYS DOC NOTES: MEDICAL INFORMATION: Prescriptions Given: Medications to Continue with No Changes Other Medications aripiprazole (aripiprazole 5 mg Tab) 1 Tablets By Mouth every day. Refills: 2. lactobacillus acidophilus (Acidophilus Probiotic Blend) PATIENT EDUCATION INFORMATION: Instructions: Care; Morning Sickness Follow up: With: Address: When: Abdias Qureshi [address] [place], [place] [address], [facility] [address], [place] [id number] [place] (1) In 3 days 09/19/2023 With: Address: When: Pari Underwood In 3 days DIAGNOSIS: Nausea/vomiting in ; Normal [facility] ED Note-Physicianon 09-16-19 ED Note-Physician ED [...] anything for this at the time. 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 Qureshi for WINDER HELPER follow-up. We discussed proper care as well [...] Qureshi In 3 days 09/19/2023 EDT [address], [facility] [address] [place] [address]- Business (1) Additional Instructions: Pari Underwood In 3 days Additional Instructions: Patient Education Care Morning Sickness Attestation Patient seen and evaluated by the physician assistant maintenance manager. Attending physician was present in the emergency department and supervised care. This visit was performed by both the physician and an APC. I performed all aspects of the MDM as documented. This report was transcribed using voice recognition software. Every effort was made to ensure accuracy, however, inadvertently computerized stone gluer mistakes may be present. Appropriate healthcare PPE [...] 08/13/2023 S (more content not included)... Normal [facility] Comment on above: Result Comment: Elec tronically Signed By: Mikel Stewart PA-C\.br\Date and Time Signed: 09/16/23 09:36 EDT\.br\Electronically Co-Signed By: Jl Medina M.D.\.br\Date and Time Co-Signed: 09/16/23 11:27 EDT ED Patient Summaryon 024 ED Patient Summary ED Patient Summary [address] [address] Patient Discharge Instructions Person Information Name: KATHRIN SANTANA Age: 23 Years Arrival Date: 09/16/2023 08:33:42 Discharge Diagnosis: Nausea/vomiting in ; Primary Care Physician: Pari Underwood PA-C Provider Information Primary Provider: Jl Medina M.D. Advanced District Fire Chief:Mikel Stewart PA-C. The exam and treatment you received in the Emergency Department were for an urgent problem and are not intended as complete care. It is important that you follow up with a doctor, nurse practitioner, or physician?s assistant maintenance manager for ongoing care. If your symptoms [...] Instructions: With: Address: When: Abdias Qureshi [address], [facility] [address], [place], [place] [id number] Business (1) In 3 days 09/19/2023 With: [...] opioids can be used to help relieve qdtsfnns-eo-huufgq pain and are often prescribed following a [...] your he (more content not included)... Normal [facility] Family Medicine Office/Clini c Noteon [...] follow-up appointment with her Dr. Nahed Stewart, teacher emotionally impaired tomorrow, during which her teacher emotionally impaired has agreed to maintain her current medication [...] advised to maintain close follow-up with the teacher emotionally impaired. 2. (Z34.90: Encounter for supervision of normal [...] with voice recognition artificial intelligence software, specifically [employer], [employer] and or [employer]. Substitutions may have occurred due to the inherent limitations of voice recognition and artificial intelligence software. ATTESTATION: This note has been generated by [employer] and edited by Brooke Carcamo, Quality Hand Packer. Follow-up With When Contact Information Pari Underwood PA-C In 3 months [address] [place] [address]- [phone] Additional Instructions: Patient Education Major Depressive Disorder, [...] and Father. Depression: Mother and Father. Normal [facility] Comment on above: Result Comment: Elec tronically Signed By: Pari Underwood PA-C\.br\Date and Time Signed: 09/16/23 12:42 EDT\.br\Electronically Co-Signed By: Jessica Cagle.br\Date and Time Co-Signed: 09/13/23 12:51 EDT SEROLOGYOrdered By: Rossi Calloway on 09-16-2023 HCG.beta subunit (U) [Moles/Vol] Positive (09/16/23 8:46 AM) Normal [facility] Man Sero U BetaHcg Qualon 09-16-2023 HCG.beta subunit (U) [Moles/Vol] Positive Normal [facility] Comment on above: Performed By: #### 2 [id number] #### [facility] [address] [place] [address] UA with Cult Rflxon 09-16-19 Bilirubin Ql (U) Negative Normal Negative [facility] Comment on above: Performed By: #### 4 [id number] #### [facility] [address] [place] [address] Clarity (U) Clear Normal Clear [facility] Comment on above: Performed By: #### 4 [id number] #### [facility] [address] [place] [address] Color (U) Light-Yellow Normal Yellow [facility] Comment on above: Result Comment: Micr oscopic readings are only performed on those samples that meet specific criteria set forth by [facility]. Performed By: #### 4 [id number] #### [facility] [address] [place] [address] Glucose Ql (U) Negative Normal Negative [facility] Comment on above: Performed By: #### 4 [id number] #### [facility] [address] [place] [address] Hemoglobin Auto test strip (U) [Mass/Vol] Negative Normal Negative [facility] Comment on above: Performed By: #### 4 [id number] #### [facility] [address] [place] [address] Ketones Auto test strip Ql (U) Negative Normal Negative [facility] Comment on above: Performed By: #### 4 [id number] #### [facility] [address] [place] [address] Leukocyte esterase Auto test strip Ql (U) Negative Normal Negative [facility] Comment on above: Performed By: #### 4 [id number] #### [facility] [address] [place] [id number] Nitrite Auto test strip Ql (U) Negative Normal Negative [facility] Comment on above: Performed By: #### 4 [id number] #### [facility] [address] [place] [id number] pH (U) 6.5 [pH] Invalid Interpretation Code 5.0-9.0 [facility] Comment on above: Performed By: #### 4 [id number] #### [facility] [address] [place] [id number] Protein Ql (U) Negative Normal Negative [facility] Comment on above: Performed By: #### 4 [id number] #### [facility] [address] [place] [id number] Specific gravity (U) [Rel density] 1.017 Invalid Interpretation Code 1.005-1.030 [facility] Comment on above: Performed By: #### 4 [id number] #### [facility] [address] [place] [id number] Urobilinogen (U) [Mass/Vol] Negative Normal Negative [facility] Comment on above: Performed By: #### 4 [id number] #### [facility] [address] [place], [place] [id number] Type of Urine collection method Clean Catch Normal [facility] Comment on above: Performed By: #### 4 [id number] #### [facility] [address] [place] [id number] URINALYSISOrdered By: SYSTEM SYSTEM on 09-16-2023 Bilirubin Ql (U) Negative Normal Negativemg/dL [facility] UA Auto SS Clarity (U) Clear (09/16/23 8:46 AM) Normal Clear [facility] UA Auto SS Color (U) Light-Yellow 1 (09/16/23 8:46 AM) Normal Yellow [facility] UA Auto SS Comment on above: Interpretive Data: M icroscopic readings are only performed on those samples that meet specific criteria set forth by [facility]. Glucose Ql (U) Negative Normal Negativemg/dL [facility] UA Auto SS Hemoglobin Auto test strip (U) [Mass/Vol] Negative Normal Negativemg/dL [facility] UA Aut o SS Ketones Auto test strip Ql (U) Negative Normal Negativemg/dL [facility] UA Auto SS Leukocyte esterase Auto test strip Ql (U) Negative Normal NegativeLeu/uL [facility] UA Auto SS Nitrite Auto test strip Ql (U) Negative Normal Negativemg/dL [facility] UA Auto SS pH (U) 6.5 *NA* (09/16/23 8:46 AM) Invalid Interpretation Code 5.0 - 9.0 [facility] UA Auto SS Protein Ql (U) Negative Normal Negativemg/dL [facility] UA Auto SS Specific gravity (U) [Rel density] 1.017 *NA* (09/16/23 8:46 AM) Invalid Interpretation Code 1.005 - 1.030 [facility] UA Auto SS Urobilinogen (U) [Mass/Vol] Negative Normal Negativemg/dL [facility] UA Auto SS URINALYSISOrdered By: Dulce Lockett on 09-16-2023 UA Spec Desc Clean Catch (09/16/23 8:46 AM) Normal [facility] UA Auto SS Ambulatory Visit Summaryon 0 [...] When: In 3 months Where: [address] [place] [phone] Medications What How Much When Instructions New aripiprazole (aripiprazole 5 mg Tab) 1 Tablets By Mouth Every day Refills: 2 Pickup at [facility] #[id number] Unchanged lactobacillus acidophilus (Acidophilus Probiotic Blend) Pharm[facility] Information [id number] [address] [place], [place] [id number] [phone] Allergies No Known Medication Allergies Problems Ongoing - Any problem that you are currently receiving treatment for. BMI 23.0-23.9, adult Patient Survey You may receive a survey via text or e-mail asking about your office visit. Please share your experience with us by completing your survey. We appreciate your feedback and thank you for choosing us for your care. Normal [facility] ED Note-Physicianon 08-31-19 ED Note-Physician [id number] #[id number] Normal [facility] CBC with Diffon 08-30-2023 Abs. Basophil 0.04 k/uL Normal 0.00-0.20 [facility] Comment on above: Performed By: #### C DP #### [facility] [address] [place] [address] Clinical Research Manager: Berta Peña MD Abs.Imm.Granulocyte 0.02 k/uL Normal 0.00-0.30 [facility] Comment on above: Performed By: #### C DP #### [facility] [address] [place] [id number] Clinical Research Manager: Berta Peña MD Abs.Neutrophil (Seg) 4.62 k/uL Normal 2.5-7.0 [facility] Comment on above: Performed By: #### C DP #### [facility] [address] [place] [address] Clinical Research Manager: Berta Peña MD Basophils/100 WBC (Bld) 1 % Normal 0-2 [facility] Comment on above: Performed By: #### C DP #### [facility] [address] [place] [address] Clinical Research Manager: Berta Peña MD Eosinophils (Bld) [#/Vol] 0.09 10*3/uL Normal 0.00-0.40 [facility] Comment on above: Performed By: #### C DP #### [facility] [address] [place], [place] [id number] Clinical Research Manager: Berta Peña MD Eosinophils/100 WBC (Bld) 1 % Normal 0-5 [facility] Comment on above: Performed By: #### C DP #### [facility] [address] [place] [id number] Clinical Research Manager: Berta Peña MD Erythrocyte distribution width (RBC) [Ratio] 12.8 % Normal 12.1-15.2 [facility] Comment on above: Performed By: #### C DP #### [facility] [address] [place] [address] Clinical Research Manager: Berta Peña MD Hematocrit (Bld) [Volume fraction] 38.0 % Normal 36.0-46.0 [facility] Comment on above: Performed By: #### C DP #### [facility] [address] [place], [place] [id number] Clinical Research Manager: Berta Peña MD Hemoglobin (Bld) [Mass/Vol] 12.5 g/dL Normal 12.0-16.0 [facility] Comment on above: Performed By: #### C DP #### [facility] [address] [place], [place] [id number] Clinical Research Manager: Berta Peña MD Immature granulocytes/100 WBC (Bld) 0 % Normal 0-5 [facility] Comment on above: Performed By: #### C DP #### [facility] [address] [place] [address] Clinical Research Manager: Berta Peña MD Lymphocytes (Bld) [#/Vol] 1.87 10*3/uL Normal 1.00-4.80 [facility] Comment on above: Performed By: #### C DP #### [facility] [address] [place] [address] Clinical Research Manager: Berta ePña MD Lymphocytes/100 WBC (Bld) 26 % Normal 15-40 [facility] Comment on above: Performed By: #### C DP #### [facility] [address] [place] [address] Clinical Research Manager: Berta Peña MD MCH (RBC) [Entitic mass] 28.2 pg Normal 26.0-34.0 [facility] Comment on above: Performed By: #### C DP #### [facility] [address] [place] [address] Clinical Research Manager: Berta Peña MD MCHC (RBC) [Mass/Vol] 32.9 g/dL Normal 31.0-37.0 [facility] Comment on above: Performed By: #### C DP #### [facility] [address] [place] [address] Clinical Research Manager: Berta Peña MD MCV (RBC) [Entitic vol] 85.8 fL Normal 80.0-100.0 [facility] Comment on above: Performed By: #### C DP #### [facility] [address] [place] [address] Clinical Research Manager: Berta Peña MD Monocytes (Bld) [#/Vol] 0.55 10*3/uL Normal 0.00-1.00 [facility] Comment on above: Performed By: #### C DP #### [facility] [address] [place] [address] Clinical Research Manager: Berta Peña MD Monocytes/100 WBC (Bld) 8 % Normal 4-8 [facility] Comment on above: Performed By: #### C DP #### [facility] [address] [place] [address] Clinical Research Manager: Berta Peña MD Neutrophil (Seg) 64 % Normal 47-75 [facility] Comment on above: Performed By: #### C DP #### [facility] [address] [place], [place] [id number] Clinical Research Manager: Berta Peña MD Platelet mean volume (Bld) [Entitic vol] 9.7 fL Normal 6.0-12.0 [facility] Comment on above: Performed By: #### C DP #### [facility] [address] [place], [place] [id number] Clinical Research Manager: Berta Peña MD Platelets (Bld) [#/Vol] 265 10*3/uL Normal 140-450 [facility] Comment on above: Performed By: #### C DP #### [facility] [address] [place], [place] [id number] Clinical Research Manager: Berta Peña MD RBC (Bld) [#/Vol] 4.43 10*6/uL Normal 4.00-5.20 [facility] Comment on above: Performed By: #### C DP #### [facility] [address] [place], [place] [id number] Clinical Research Manager: Berta Peña MD WBC (Bld) [#/Vol] 7.2 10*3/uL Normal 4.5-13.5 [facility] Comment on above: Performed By: #### C DP #### [facility] [address] [place], [place] [id number] Clinical Research Manager: Berta Peña MD HCG, Quanton 08-30-2023 HCG, Quant 98177.0 mIU/mL High <5 [facility] Comment on above: Result Comment: Non-preg premeno <=5 Postmeno <=8 Male <=3 If HCG results do not concur with clinical observations, additional testing to confirm results is recommended. Performed By: #### B HCG #### [facility] [address] [place], [place] [id number] Clinical Research Manager: Berta Peña MD Type + Screenon 08-30-2023 Type + Screen Sample Expiration 09/02/2023,4014 ABO/Rh(D) O POSITIVE Antibody Screen NEGATIVE Normal [facility] Comment on above: Performed By: #### T YS #### [facility] [address] [place] [address] Clinical Research Manager: Berta Peña MD Family Medicine Office/Clini c Noteon [...] side effects, signs (more content not included)... [facility] Comment on above: Result Comment: Elec tronically Signed By: Pari Underwood PA-C\.br\Date and Time Signed: 08/19/23 20:54 EDT\.br\Electronically Co-Signed By: Julia Rodriguez\.br\Date and Time Co-Signed: 08/13/23 17:18 EDT Formson 08-16-2023 Forms [id number]# 1.00TIFF [facility] Ambulatory Visit Summaryon 0 08-13-2023 Ambulatory [...] AM EDT With: Pari Underwood PA-C Where: [facility] [place] Normal [facility] Patient Educationon 08-13-19 24 Patient Education [...] pray, or go to a place of sikhism. ? Do some deep breathing. To do [...] or salt (sodium). General instructions ? Take limj-wun-kcmdtsh and prescription medicines only as told by [...] [facility] (more content not included)... Normal [facility] CHLAMYDIA/GCon 08-04-2023 CHLAMYDIA TRACH Not detected Normal NOT DETECTED [facility] Comment on above: Performed By: #### C TNG #### [place] [address] N.GONORRHOEAE Not detected Normal NOT DETECTED [facility] Comment on above: Result Comment: TEST ING PERFORMED BY PCR Testing performed at [place] [address] Performed By: #### C TNG #### [place] [address] CHLAMYDIA/GONOCOCCUS, NAAon 08-04-2023 CHLAMYDIA TRACHOMATIS Not detected NOT DETECTED [facility] NEISSERIA GONORRHOEAE Not detected NOT DETECTED [facility] Comment on above: TESTING PERFORMED BY PCR Testing performed at [address] TRICH VAGon 08-04-2023 TRICH VAG Not detected Normal NOT DETECTED [facility] Comment on above: Result Comment: TEST ING PERFORMED BY PCR Testing performed at [place] [address] Performed By: #### A TV #### [place] [address] TRICHOMONAS VAGINALIS, NAAon 08-04-2023 T. vaginalis rRNA TELMA+probe Ql (Unsp spec) Not detected NOT DETECTED [facility] Comment on above: TESTING PERFORMED BY PCR Testing performed at [address] CHLAMYDIA/GCon 04-16-2023 CHLAMYDIA TRACH Not detected Normal NOT DETECTED [facility] Comment on above: Performed By: #### C TNG #### [place] [address] N.GONORRHOEAE Not detected Normal NOT DETECTED [facility] Comment on above: Result Comment: TEST ING PERFORMED BY PCR Testing performed at [place] [address] Performed By: #### C TNG #### [place] [address] CHLAMYDIA/GONOCOCCUS, NAAon 04-16-2023 CHLAMYDIA TRACHOMATIS Not detected NOT DETECTED [facility] NEISSERIA GONORRHOEAE Not detected NOT DETECTED [facility] Comment on above: TESTING PERFORMED BY PCR Testing performed at [address] TRICH VAGon 04-16-2023 TRICH VAG Not detected Normal NOT DETECTED [facility] Comment on above: Result Comment: TEST ING PERFORMED BY PCR Testing performed at [place] [address] Performed By: #### C TNG #### [place] [address] TRICHOMONAS VAGINALIS, NAAon 04-16-2023 T. vaginalis rRNA TELMA+probe Ql (Unsp spec) Not detected NOT DETECTED [facility] Comment on above: TESTING PERFORMED BY PCR Testing performed at [address] XR RIBS WITH CHEST, RIGHTon [...] fractures identified. IMPRESSION: No acute findings. Normal [facility] CHLAMYDIA/GCon 10-23-2022 CHLAMYDIA TRACH Not detected Normal NOT DETECTED [facility] Comment on above: Performed By: #### C TNG #### [place] [address] N.GONORRHOEAE Not detected Normal NOT DETECTED [facility] Comment on above: Result Comment: TEST ING PERFORMED BY PCR Testing performed at [place] [address] Performed By: #### C TNG #### [place] [address] CHLAMYDIA/GONOCOCCUS, NAAon 10-23-2022 CHLAMYDIA TRACHOMATIS Not detected NOT DETECTED [facility] NEISSERIA GONORRHOEAE Not detected NOT DETECTED [facility] Comment on above: TESTING PERFORMED BY PCR Testing performed at [place] TRICH VAGon 10-23-2022 TRICH VAG Not detected Normal NOT DETECTED [facility] Comment on above: Result Comment: TEST ING PERFORMED BY PCR Testing performed at [place] [address] Performed By: #### A TV #### [place] [address] TRICHOMONAS VAGINALIS, NAAon 10-23-2022 T. vaginalis rRNA TELMA+probe Ql (Unsp spec) Not detected NOT DETECTED [facility] Comment on above: TESTING PERFORMED BY PCR Testing performed at [address] CBC, EDIF, PLATELETon 2021 ABSOLUTE BASOPHIL COUNT 0.0 10*3/uL 0.0 - 0.2 10*3/uL [facility] Comment on above: Testing performed at [place] [address] Basophils/100 WBC (Bld) 0.5 % 0.0 - 2.0 % [facility] Differential cell count method Nom (Bld) AUTO DIFF % [facility] Eosinophils (Bld) [#/Vol] 0.20 10*3/uL 0.0 - 0.7 10*3/uL [facility] Eosinophils/100 WBC (Bld) 1.9 % 0.0 - 11.0 % [facility] Erythrocyte distribution width (RBC) [Ratio] 13.1 % 11.5 - 14.5 % [facility] Hematocrit (Bld) [Volume fraction] 32.9 % Low 36.0 - 48.0 % [facility] Hemoglobin (Bld) [Mass/Vol] 11.5 g/dL Low [facility] Interpretation and review of laboratory results Abnormal [facility] Lymphocytes (Bld) [#/Vol] 1.50 10*3/uL 1.2 - 3.4 10*3/uL [facility] Lymphocytes/100 WBC (Bld) 17.3 % Low 20.0 - 55.0 % [facility] MCH (RBC) [Entitic mass] 31.1 pg 26.0 - 35.0 PG [facility] MCHC (RBC) [Mass/Vol] 35.0 g/dL [facility] MCV (RBC) [Entitic vol] 89.0 fL [facility] Monocytes (Bld) [#/Vol] 0.8 10*3/uL High 0.0 - 0.7 10*3/uL [facility] Monocytes/100 WBC (Bld) 8.6 % 0.0 - 10.0 % [facility] Neutrophils (Bld) [#/Vol] 6.3 10*3/uL 1.4 - 6.5 10*3/uL [facility] Neutrophils/100 WBC (Bld) 71.7 % 37.0 - 75.0 % [facility] Platelet mean volume (Bld) [Entitic vol] 8.4 fL [facility] Platelets (Bld) [#/Vol] 226 10*3/uL 130.0 - 400.0 10*3/uL [facility] RBC (Bld) [#/Vol] 3.69 10*6/uL Low 4.0 - 5.4 10*6/uL [facility] WBC (Bld) [#/Vol] 8.8 10*3/uL 3.6 - 11.0 10*3/uL [facility] GLUCOSE POST LOADINGon 06-02 Glucose 1 Hr post 50 g glucose PO [Mass/Vol] 93 mg/dL [facility] Comment on above: Testing performed at [address] COLPOSCOPYon 03-13-2021 Doyle Amaro MD 03/13/2021 [...] as needed for mild to moderate pain. [facility] Narrative [Interpretat ion] Study observation general USon 02-06-2021 : 1. Single of 11 weeks and 5 days. 2. heart rate of 168 bpm. 3. US SEBASTIAN 08/23/2021, which is inconsistent with SEBASTIAN by LMP and should be changed. [facility] REFERRING PHYSICIAN: Dr. Amaro TECHNOLOGIST: Ashley Acosta PROCEDURE DATE : 02/06/2021 INDICATIONS: Early gestational, dating LMP 11/09/2020, SEBASTIAN 08/16/2021 PROCEDURE DETAILS A single was noted within the uterus. heart rate of 168 bpm. The CRL measures 5.03 cm , 11 weeks 5 days. FINAL [facility] Radiology Study observation (narrative) [facility] ABO/RH(D) TYPINGon ABO and Rh group Nom (Bld ) Positive [facility] ABO and Rh group Nom (Bld ) Testing performed at [place], [place] [address] [facility] ANTIBODY SCREENon 01-14-2021 Blood group antibody screen Ql Negative [facility] EXPIRATION DATE 01/17/2021,2359 [facility] EXPIRATION DATE Testing performed at [place], [place] [address] [facility] CBC, EDIF, PLATELETon 2020 ABSOLUTE BASOPHIL COUNT 0.0 10*3/uL 0.0 - 0.2 10*3/uL [facility] Comment on above: Testing performed at [place], [place] [address] Basophils/100 WBC (Bld) 0.6 % 0.0 - 2.0 % [facility] Differential cell count method Nom (Bld) AUTO DIFF % [facility] Eosinophils (Bld) [#/Vol] 0.10 10*3/uL 0.0 - 0.7 10*3/uL [facility] Eosinophils/100 WBC (Bld) 1.3 % 0.0 - 11.0 % [facility] Erythrocyte distribution width (RBC) [Ratio] 13.5 % 11.5 - 14.5 % [facility] Hematocrit (Bld) [Volume fraction] 35.9 % Low 36.0 - 48.0 % [facility] Hemoglobin (Bld) [Mass/Vol] 12.2 g/dL [facility] Interpretation and review of laboratory results Abnormal [facility] Lymphocytes (Bld) [#/Vol] 2.40 10*3/uL 1.2 - 3.4 10*3/uL [facility] Lymphocytes/100 WBC (Bld) 34.3 % 20.0 - 55.0 % [facility] MCH (RBC) [Entitic mass] 28.7 pg 26.0 - 35.0 PG [facility] MCHC (RBC) [Mass/Vol] 33.9 g/dL [facility] MCV (RBC) [Entitic vol] 84.7 fL [facility] Monocytes (Bld) [#/Vol] 0.7 10*3/uL 0.0 - 0.7 10*3/uL [facility] Monocytes/100 WBC (Bld) 9.7 % 0.0 - 10.0 % [facility] Neutrophils (Bld) [#/Vol] 3.8 10*3/uL 1.4 - 6.5 10*3/uL [facility] Neutrophils/100 WBC (Bld) 54.1 % 37.0 - 75.0 % [facility] Platelet mean volume (Bld) [Entitic vol] 9.3 fL [facility] Platelets (Bld) [#/Vol] 289 10*3/uL 130.0 - 400.0 10*3/uL [facility] RBC (Bld) [#/Vol] 4.23 10*6/uL 4.0 - 5.4 10*6/uL [facility] WBC (Bld) [#/Vol] 7.1 10*3/uL 3.6 - 11.0 10*3/uL [facility] HIV 1+2 Ab+HIV1 p24 Ag IA Ql on 01-14-2021 HIV 1+2 Ab IA Ql Non-Reactive NONREACTIVE [facility] Comment on above: Testing performed at [place] RAPID TOX SCREEN WITH RELEX TO DRUGMCon 01-14-2021 Amphetamine (U) [Mass/Vol] Negative NEGATIVE NG/ML [facility] Comment on above: <500 ng/ml CUTOFF Barbiturates Screen Ql (U) Negative NEGATIVE NG/ML [facility] Comment on above: <200 ng/ml CUTOFF Benzodiazepines Ql (U) Negative NEGATIVE NG/ML [facility] Comment on above: <150 ng/ml CUTOFF Benzoylecgonine Ql (U) Negative NEGATIVE NG/ML [facility] Comment on above: <150 ng/ml CUTOFF Buprenorphine Ql (U) Negative NEGATIVE NG/ML [facility] Comment on above: <10 ng/ml CUTOFF Testing performed at [place] [address] Cannabinoids Screen Ql (U) Positive Abnormal NEGATIVE NG/ML [facility] Comment on above: <50 ng/ml CUTOFF *Unconfirmed Screening Result* Unconfirmed screening results are to be used only for medical treatment purposes. Interpretation and review of laboratory results Abnormal [facility] Methadone Screen Ql (U) Negative NEGATIVE NG/ML [facility] Comment on above: <200 ng/ml CUTOFF Methamphetamine (U) [Mass/Vol] Negative NEGATIVE NG/ML [facility] Comment on above: <500 ng/ml CUTOFF Opiates Screen Ql (U) Negative NEGATIVE NG/ML [facility] Comment on above: <100 ng/ml CUTOFF oxyCODONE Ql (U) Negative NEGATIVE NG/ML [facility] Comment on above: <100 ng/ml CUTOFF Phencyclidine Screen method >25 ng/mL Ql (U) Negative NEGATIVE NG/ML [facility] Comment on above: <25 ng/ml CUTOFF Propoxyphene+Norpropo xyphene Screen Ql (U) Negative NEGATIVE NG/ML [facility] Comment on above: <300 ng/ml CUTOFF Tricyclic antidepressants Screen Ql (U) Negative NEGATIVE NG/ML [facility] Comment on above: <300 ng/ml CUTOFF [facility] REQUEST FOR MISC LAB SENDOUT on 01-14-2021 Miscellaneous Test 1 SPECIMEN SENT TO REFERENCE LAB FOR TESTING [facility] Comment on above: [id number] CANNABINOID Testing performed at [address] Chlamydia/GC,DNA Ampon 08-09 Chlamydia Probe Negative Normal [facility] Comment on above: Result Comment: CHLA [...] target. Performed By: #### S WCGP #### [facility] [address] [place] [address] Clinical Research Manager: Geovani Cordon MD Gonorrhea Probe Negative [facility] Comment on above: Result Comment: NEIS [...] target. Performed By: #### S WCGP #### [facility] [employer] [address] [place] [address] Clinical Research Manager: Geovani Cordon MD Herpes 1+2 Molecularon 08-09 HSV-1, NAAT Negative [facility] Comment on above: Result Comment: HSV- 1 DNA not detected by nucleic acid amplification Performed By: #### H BS, HSVDNA, TREP, AHCV, HIVCMB #### [employer] [address] [place] [address] Clinical Research Manager: Geovani Cordon MD HSV-2, NAAT Negative [facility] Comment on above: Result Comment: HSV- 2 DNA not detected by nucleic acid amplification Performed By: #### H BS, HSVDNA, TREP, AHCV, HIVCMB #### [facility] [address] [place] [address] Clinical Research Manager: Geovani Cordon MD Vaginitis DNA Probeon 2020 [...] of vaginitis/vaginosis. Report Status FINAL 08/09/2020 Normal [facility] Comment on above: Performed By: #### V AGDNA #### [address] [id number] Clinical Research Manager: Geovani Cordon MD [facility] [address] [place] [address] [place] [address] Clinical Research Manager: Berta Peña MD HIV Ag/Abon 08-08-2020 HIV Ag/Ab Non-Reactive Normal [facility] Comment on above: Result Comment: No l aboratory evidence of HIV infection. If acute HIV infection is suspected, consider testing for HIV-1 RNA. Performed By: #### H BS, HSVDNA, TREP, AHCV, HIVCMB #### [address] [id number] Clinical Research Manager: Geovani Cordon MD Hep B Surf Agon 08-08-2020 Hep B Surf Ag Non-Reactive Normal [facility] Comment on above: Performed By: #### H BS, HSVDNA, TREP, AHCV, HIVCMB #### [facility] [employer] [facility] [place], [place] [id number] Clinical Research Manager: Geovani Cordon MD Hep C Abon 08-08-2020 Hep C Ab Non-Reactive Normal [facility] Comment on above: Result Comment: The [...] H BS, HSVDNA, TREP, AHCV, HIVCMB #### [facility] [employer] [facility] [place] [address] Clinical Research Manager: Geovani Cordon MD Herpes 1+2 Molecularon 08-08 Source: NOT REPORTED Normal [facility] Comment on above: Performed By: #### H BS, HSVDNA, TREP, AHCV, HIVCMB #### [facility] [employer] [facility] [place] [address] Clinical Research Manager: Geovani Cordon MD T.pallidum Ab Screenon 08-08 T.pallidum Ab Screen Non-Reactive Normal [facility] Comment on above: Result Comment: T. pallidum antibodies are not detected. There is no serological evidence of infection with T. pallidum (early primary syphilis cannot be excluded). Retest in 2-4 weeks if syphilis is clinically suspect. Performed By: #### H BS, HSVDNA, TREP, AHCV, HIVCMB #### [facility] [employer] [address] [place] [address] Clinical Research Manager: Geovani Cordon MD CBC W/DIFFon 09-29-2019 ABS BASOPHILS 0.1 10*3/uL Normal 0.0-0.2 [facility] Comment on above: Order Comment: No: D o not add to previous draw Performed By: #### 5 0103 #### [facility] [address] ABS IMM GRANS 0.0 10*3/uL Normal 0.0-0.2 [facility] Comment on above: Order Comment: No: D o not add to previous draw Performed By: #### 5 3 #### [facility] [address] [place] [address], [facility] ABS NEUTROPHILS 2.1 10*3/uL Normal 1.6-7.6 [facility] Comment on above: Order Comment: No: D o not add to previous draw Performed By: #### 5 3 #### [facility] [address] [place] [address], [facility] Basophils/100 WBC (Bld) 1.2 % High 0.0-1.0 [facility] Comment on above: Order Comment: No: D o not add to previous draw Performed By: #### 5 0103 #### [facility] [address] [place] [address], [facility] Eosinophils (Bld) [#/Vol] 0.3 10*3/uL Normal 0.0-0.5 [facility] Comment on above: Order Comment: No: D o not add to previous draw Performed By: #### 5 0103 #### [facility] [address] [place] [address], [facility] Eosinophils/100 WBC (Bld) 4.5 % Normal 0.0-6.0 [facility] Comment on above: Order Comment: No: D o not add to previous draw Performed By: #### 5 0103 #### [facility] [address] [place] [address], [facility] Erythrocyte distribution width (RBC) [Ratio] 14.0 % Normal 11.5-15.0 [facility] Comment on above: Order Comment: No: D o not add to previous draw Performed By: #### 5 3 #### [facility] [address] [place] [address], [facility] Hematocrit (Bld) [Volume fraction] 39.7 % Normal 36.0-45.0 [facility] Comment on above: Order Comment: No: D o not add to previous draw Performed By: #### 5 0103 #### [facility] [address] [place] [address], [facility] Hemoglobin (Bld) [Mass/Vol] 12.9 g/dL Normal 12.0-15.0 [facility] Comment on above: Order Comment: No: D o not add to previous draw Performed By: #### 5 0103 #### [facility] [address] [place] [address], [facility] IMMATURE GRANS 0.3 % Normal 0.0-1.0 [facility] Comment on above: Order Comment: No: D o not add to previous draw Performed By: #### 5 3 #### [facility] [address] [place] [id number], [facility] Lymphocytes (Bld) [#/Vol] 3.1 10*3/uL Normal 1.2-4.0 [facility] Comment on above: Order Comment: No: D o not add to previous draw Performed By: #### 5 102 #### [facility] [address] [facility] [place] [address], [facility] Lymphocytes/100 WBC (Bld) 51.7 % High 20.0-45.0 [facility] Comment on above: Order Comment: No: D o not add to previous draw Performed By: #### 5 3 #### [facility] [address] [facility] [place] [address], [facility] MCH (RBC) [Entitic mass] 27.7 pg Normal 27.0-33.0 [facility] Comment on above: Order Comment: No: D o not add to previous draw Performed By: #### 5 102 #### [facility] [address] [facility] [place] [id number], [facility] MCHC (RBC) [Mass/Vol] 32.5 g/dL Normal 32.0-35.0 [facility] Comment on above: Order Comment: No: D o not add to previous draw Performed By: #### 5 0103 #### [facility] [address] [place] [address], [facility] MCV (RBC) [Entitic vol] 85.2 fL Normal 82.0-98.0 [facility] Comment on above: Order Comment: No: D o not add to previous draw Performed By: #### 5 3 #### [facility] [address] [place] [address], [facility] Monocytes (Bld) [#/Vol] 0.4 10*3/uL Normal 0.1-1.0 [facility] Comment on above: Order Comment: No: D o not add to previous draw Performed By: #### 5 0103 #### [facility] [address] [place] [address], [facility] MONOS 7.2 % Normal 5.0-12.0 [facility] Comment on above: Order Comment: No: D o not add to previous draw Performed By: #### 5 0103 #### [facility] [address] [place] [address], [facility] Neutrophils/100 WBC (Bld) 35.1 % Low 40.0-72.0 [facility] Comment on above: Order Comment: No: D o not add to previous draw Performed By: #### 5 0103 #### [facility] [address] [facility] [place] [id number], [facility] Nucleated RBC/100 WBC (Bld) [Ratio] 0 % Normal 0-0 [facility] Comment on above: Order Comment: No: D o not add to previous draw Performed By: #### 5 0103 #### [facility] [address] [facility] [place] [address], [facility] PLAT CNT 237 10*3/uL Normal 150-400 [facility] Comment on above: Order Comment: No: D o not add to previous draw Performed By: #### 5 0103 #### [facility] [address] [facility] [place] [address], [facility] RBC (Bld) [#/Vol] 4.66 10*6/uL Normal 3.80-5.00 [facility] Comment on above: Order Comment: No: D o not add to previous draw Performed By: #### 5 3 #### [facility] [address] [place] [address], [facility] WBC (Bld) [#/Vol] 5.96 10*3/uL Normal 4.00-10.60 [facility] Comment on above: Order Comment: No: D o not add to previous draw Performed By: #### 5 0103 #### [facility] [address] [place] [address], [facility] COMP METABOLIC PANELon 09-28 Albumin [Mass/Vol] 4.5 g/dL Normal 3.5-5.7 [facility] Comment on above: Order Comment: No: D o not add to previous draw Performed By: #### 4 [id number], 47600, 76011, 96235, 48185, 50171 #### [facility] [address] [place] [id number], [facility] ALKALINE PHOSPH 59 IU/L Normal 40-460 [facility] Comment on above: Order Comment: No: D o not add to previous draw Performed By: #### 4 [id number], 28384, 68249, 41921, 26977, 93113 #### [facility] [address] [place] [address], [facility] ALT [Catalytic activity/Vol] 10 U/L Normal 7-52 [facility] Comment on above: Order Comment: No: D o not add to previous draw Performed By: #### 4 [id number], 73704, 86502, 87487, 12172, 34017 #### [facility] [address] [place] [address], [facility] AST [Catalytic activity/Vol] 17 U/L Normal 13-39 [facility] Comment on above: Order Comment: No: D o not add to previous draw Performed By: #### 4 [id number], 42041, 65034, 15453, 07728, 20771 #### [facility] [address] [place] [address], [place] Bilirubin [Mass/Vol] 0.4 mg/dL Normal 0.3-1.0 [facility] Comment on above: Order Comment: No: D o not add to previous draw Performed By: #### 4 [id number], 36150, 17016, 14964, 52950, 52043 #### [facility] [address] [place] [address], [facility] Calcium [Mass/Vol] 9.5 mg/dL Normal 8.6-10.3 [facility] Comment on above: Order Comment: No: D o not add to previous draw Performed By: #### 4 [id number], 93712, 41203, 50188, 48127, 86684 #### [facility] [address] [place] [address], [place] Chloride [Moles/Vol] 104 mmol/L Normal 98-107 [facility] Comment on above: Order Comment: No: D o not add to previous draw Performed By: #### 4 4396, 91364, 07968, 75902, 81955, 06734 #### [facility] [address] [place] [address], [facility] CO2 [Moles/Vol] 28 mmol/L Normal 21-31 [facility] Comment on above: Order Comment: No: D o not add to previous draw Performed By: #### 4 4396, 42087, 51047, 72560, 39865, 95954 #### [facility] [address] [place] [address], [facility] Creatinine [Mass/Vol] 0.66 mg/dL Normal 0.60-1.20 [facility] Comment on above: Order Comment: No: D o not add to previous draw Performed By: #### 4 4396, 91733, 12920, 59660, 45856, 27334 #### [facility] [address] [place] [address], [place] GFR/1.73 sq M predicted among blacks MDRD (S/P/Bld) [Vol rate/Area] Calculation not validated for patients under 18 years Abnormal >60 [facility] Comment on above: Order Comment: No: D o not add to previous draw Performed By: #### 4 [id number], 97175, 88782, 06510, 79235, 41453 #### [facility] [address] [place] [address], [place] GFR/1.73 sq M predicted among non-blacks MDRD (S/P/Bld) [Vol rate/Area] Calculation not validated for patients under 18 years Abnormal >60 [facility] Comment on above: Order Comment: No: D o not add to previous draw Performed By: #### 4 4396, 33117, 47560, 35894, 57847, 07590 #### [facility] [address] [place] [address], [place] Glucose [Mass/Vol] 139 mg/dL High 70-100 [facility] Comment on above: Order Comment: No: D o not add to previous draw Performed By: #### 4 4396, 77811, 45547, 65394, 52431, 75815 #### [facility] [address] [place] [address], [place] Potassium [Moles/Vol] 3.6 mmol/L Normal 3.5-5.1 [facility] Comment on above: Order Comment: No: D o not add to previous draw Performed By: #### 4 4396, 45740, 72401, 59455, 05054, 41841 #### [facility] [address] [place] [address], [place] Protein [Mass/Vol] 7.2 g/dL Normal 6.0-8.3 [facility] Comment on above: Order Comment: No: D o not add to previous draw Performed By: #### 4 4396, 42839, 41324, 94966, 52564, 56837 #### [facility] [address] [place] [address], [place] Sodium [Moles/Vol] 139 mmol/L Normal 136-145 [facility] Comment on above: Order Comment: No: D o not add to previous draw Performed By: #### 4 4396, 14739, 06114, 68139, 64394, 42095 #### [facility] [address] [place] [address], [facility] Urea nitrogen [Mass/Vol] 9 mg/dL Normal 7-25 [facility] Comment on above: Order Comment: No: D o not add to previous draw Performed By: #### 4 4396, 68183, 30225, 38849, 68532, 89662 #### [facility] [address] [place] [address], [facility] FREE T3on 09-29-2019 Free T3 [Mass/Vol] 4.2 pg/mL High 2.5-3.9 [facility] Comment on above: Order Comment: No: D o not add to previous draw Performed By: #### 4 4396, 94358, 95495, 06895, 03187, 71634 #### [facility] [address] [place] [address], [facility] FREE T4on 09-29-2019 Free T4 [Mass/Vol] 0.82 ng/dL Normal 0.71-1.85 [facility] Comment on above: Order Comment: No: D o not add to previous draw Performed By: #### 4 4396, 54849, 88613, 10985, 22364, 38371 #### [facility] [address] [place] [address], [facility] LIPID PROFILEon 09-29-2019 Cholesterol [Mass/Vol] 153 mg/dL Normal 120-170 [facility] Comment on above: Order Comment: No: D o not add to previous draw Result Comment: CHOL ESTEROL REFERENCE RANGE: 20 YEARS AND OLDER CARDIOVASCULAR RISK Less than 200 mg/dl Low Risk 200 to 239 mg/dl Borderline Risk 240 mg/dl and greater High Risk Performed By: #### 4 4396, 00181, 09920, 88358, 29907, 37994 #### [facility] [address] [place] [address], [facility] Cholesterol in HDL [Mass/Vol] 56 mg/dL Normal 23-92 [facility] Comment on above: Order Comment: No: D o not add to previous draw Result Comment: Slig ht variation in normal range could be due to gender and/or age. HDL CHOLESTEROL REFERENCE RANGE: 20 years and older Cardiovascular Risk > or =60 mg/dL Desirable 40 TO 59 mg/dL Low Risk <40 mg/dL High Risk Performed By: #### 4 4396, 90186, 05578, 94134, 54099, 15023 #### [facility] [address] [place] [address], [facility] Cholesterol in LDL [Mass/Vol] 74 mg/dL Normal 0-130 [facility] Comment on above: Order Comment: No: D o not add to previous draw Result Comment: LDL IS A CALCULATION LDL IS ONLY VALID IF THE TRIG IS LESS THAN 400. Performed By: #### 4 4396, 39997, 17461, 51455, 64466, 58341 #### [facility] [address] [place] [address], [facility] Cholesterol.total/Cho lesterol in HDL [Mass ratio] 2.7 {ratio} Normal 0.0-4.5 [facility] Comment on above: Order Comment: No: D o not add to previous draw Performed By: #### 4 4396, 58539, 50229, 29063, 72036, 27299 #### [facility] [address] [place] [address], [facility] NON-HDL CHOLESTEROL 97 mg/dL Normal [facility] Comment on above: Order Comment: No: D o not add to previous draw Performed By: #### 4 4396, 62019, 98450, 46156, 27814, 94857 #### [facility] [address] [place] [address], [place] Triglyceride [Mass/Vol] 114 mg/dL Normal 37-148 [facility] Comment on above: Order Comment: No: D o not add to previous draw Result Comment: TRIG LYCERIDE REFERENCE RANGE: 20 YEARS AND OLDER CARDIOVASCULAR RISK LESS THAN 150 mg/dl LOW RISK 150 TO 199 mg/dl BORDERLINE RISK 200 mg/dl AND GREATER HIGH RISK Performed By: #### 4 4396, 23530, 88368, 69930, 58933, 92162 #### [facility] [address] [place] [address], [facility] VLDL CHOL 23 mg/dL Normal 0-40 [facility] Comment on above: Order Comment: No: D o not add to previous draw Performed By: #### 4 4396, 14347, 02758, 86851, 24538, 80080 #### [facility] [address] [place], [place] [id number] [place] [address] SERUM TESTon 09-28 TEST Negative Normal [facility] Comment on above: Order Comment: No: D o not add to previous draw Performed By: #### 4 6473 #### [facility] [address] [facility] [place] [address], [facility] TSH3on 09-29-2019 TSH 3RD GENERATION 1.24 uIU/mL Normal 0.34-5.60 [facility] Comment on above: Order Comment: No: D o not add to previous draw Performed By: #### 4 4396, 21788, 28504, 33602, 84381, 04310 #### [facility] [address] [place], [place] [id number] [place] [address] VITAMIN D 25-HYDROXYon 09-28 VITAMIN D 25-OH 42.5 ng/mL Normal 30.0-80.0 [facility] Comment on above: Result Comment: >80. 0 Toxicity possible Performed By: #### 4 4396, 24524, 23388, 93809, 77362, 32349 #### [facility] [address] [place] [address], [facility] Urine Drug Screenon 09-28-19 20 Amphetamine Screen, Ur Negative NEGATIVE [facility] [place] [place] Comment on above: (Positive cutoff 500 ng/mL) Barbiturate Screen, Ur Negative NEGATIVE [facility] [place] Comment on above: (Positive cutoff 200 ng/mL) Benzodiazepine Screen, Urine Negative NEGATIVE [place] Comment on above: (Positive cutoff 150 ng/mL) Buprenorphine Urine NOT REPORTED NEGATIVE [place] Cannabinoid Scrn, Ur Positive Abnormal NEGATIVE [place] Comment on above: (Positive cutoff 50 ng/mL) Cocaine Metabolite, Urine Negative NEGATIVE [place] Comment on above: (Positive cutoff 150 ng/mL) Interpretation and review of laboratory results Abnormal [place] MDMA, Urine NOT REPORTED NEGATIVE [place] Methadone Screen, Urine Negative NEGATIVE [place] Comment on above: (Positive cutoff 200 ng/mL) Methamphetamine, Urine Negative NEGATIVE [place] Comment on above: (Positive cutoff 500 ng/mL) Opiates, Urine Negative NEGATIVE [place] Comment on above: (Positive cutoff 100 ng/mL) Oxycodone Screen, Ur Negative NEGATIVE [place] Comment on above: (Positive cutoff 100 ng/mL) Phencyclidine, Urine Negative NEGATIVE [place] Comment on above: (Positive cutoff 25 ng/mL) Propoxyphene, Urine Negative NEGATIVE [place] Comment on above: (Positive cutoff 300 ng/mL) Test Information NOT REPORTED [place] Tricyclic Antidepressants, Urine Negative NEGATIVE [place] Comment on above: (Positive cutoff 300 ng/mL) Drug screen results are to be used for medical purposes only. All positive results are unconfirmed. Testing for employment or legal uses should be sent to a reference laboratory for confirmation. Acetaminophen Levelon 2019 Acetaminophen [Mass/Vol] <5 Low 10 - 30 ug/mL [place] Interpretation and review of laboratory results Abnormal [place] Basic Metabolic Panelon 09-06 Anion gap [Moles/Vol] 15 mmol/L 9 - 17 mmol/L [place] Bun/Cre Ratio 13 [place] Calcium [Mass/Vol] 10.5 mg/dL High 8.4 - 10. 2 mg/dL [place] Chloride [Moles/Vol] 98 mmol/L 98 - 10 7 mmol/L [place] CO2 [Moles/Vol] 23 mmol/L 20 - 31 mmol/L [place] Creatinine [Mass/Vol] 0.61 mg/dL 0.5 - 0.9 mg/dL [place] GFR NOT REPORTED >60 mL/min [place] GFR Non- Pediatric GFR requires additional information. Refer to [facility]OHP website for calculator. >60 mL/min [place] GFR/1.73 sq M predicted among non-blacks MDRD (S/P/Bld) [Vol rate/Area] NOT REPORTED [place] GFR/1.73 sq M predicted among non-blacks MDRD (S/P/Bld) [Vol rate/Area] [place] Comment on above: Average GFR for <20 years old not available. Chronic Kidney Disease: <60 mL/min/1.73sq m Kidney failure: <15 mL/min/1.73sq m eGFR calculated using average adult body mass. Additional eGFR calculator available at: http://www.Keystok/multiple_crcl_2011.htm Glucose [Mass/Vol] 106 mg/dL High 60 - 100 mg/dL [place] Potassium [Moles/Vol] 3.9 mmol/L 3.6 - 4.9 mmol/L [place] Sodium [Moles/Vol] 136 mmol/L 135 - 144 mmol/L [place] Urea nitrogen [Mass/Vol] 8 mg/dL 5 - 18 mg/dL [place] CBC Auto Differentialon 09-06 Basophils (Bld) [#/Vol] 0.00 10*3/uL [place] Basophils/100 WBC (Bld) 0 % 0 - 2 % [place] Differential Type YES [place] Eosinophils (Bld) [#/Vol] 0.10 10*3/uL [place] Eosinophils/100 WBC (Bld) 1 % 0 - 5 % [place] Erythrocyte distribution width (RBC) [Ratio] 14.8 % 12.1 - 15.2 % [place] Hematocrit (Bld) [Volume fraction] 40.2 % 36 - 46 % [place] Hemoglobin (Bld) [Mass/Vol] 13.8 g/dL 12 - 16 g/dL [place] Lymphocytes (Bld) [#/Vol] 1.90 10*3/uL [place] Lymphocytes/100 WBC (Bld) 21 % 14 - 41 % [place] MCH (RBC) [Entitic mass] 28.4 pg 25 - 35 pg [place] MCHC (RBC) [Mass/Vol] 34.2 g/dL 31 - 37 g/dL [place] MCV (RBC) [Entitic vol] 83.1 fL 78 - 102 fL [place] Monocytes (Bld) [#/Vol] 0.70 10*3/uL [place] Monocytes/100 WBC (Bld) 7 % 4 - 8 % [place] Platelet mean volume (Bld) [Entitic vol] NOT REPORTED 6 - 12 fL [place] Platelets (Bld) [#/Vol] 238 10*3/uL [place] Platelets (Bld) [#/Vol] NOT REPORTED [place] RBC (Bld) [#/Vol] 4.84 10*6/uL 4 - 5.2 m/uL [place] RBC morphology finding Nom (Bld) NOT REPORTED [place] Segmented neutrophils/100 WBC (Bld) 71 % 45 - 76 % [place] Segs Absolute 6.50 [place] WBC (Bld) [#/Vol] 9.2 10*3/uL [place] WBC (Bld) [#/Vol] NOT REPORTED per 100 WBC [place] WBC Morphology NOT REPORTED [place] Ethanolon 09-27-2019 Ethanol [Mass/Vol] mg/dL <10 mg/dL [place] Ethanol percent <0.010 % [place] HCG Qualitative, Serumon hCG Qual Negative NEGATIVE [place] Comment on above: Specimens with hCG l evels near the threshold of the test (25 mIU/mL) may give a negative or indeterminate result. In such cases, another test should be performed with a new specimen in 48-72 hours. If early is suspected clinically in this setting, correlation with quantitative serum b-hCG level is suggested. [employer] has confirmed the use of plasma for this test. This has not been cleared or approved by the U.S. Food and Drug Administration. The FDA has determined that such clearance is not necessary. Otheron 09-27-2019 Interpretation and review of laboratory results [facility]normal [facility] Immature granulocytes (Bld) [#/Vol] NOT REPORTED 0 % [facility] Salicylateon 09-27-2019 Salicylate Lvl <1 Low 3 - 10 mg/dL [facility] [place] TSH without Reflexon 020 TSH Qn 0.49 m[IU]/L [facility] (MIN 3 VIEWS)o n 09-27-2019 EXAM: XR HAND RIGHT (MIN 3 VIEWS) HISTORY: Reason for exam:->pain to lateral MCs, punched wall COMPARISON: Right hand, 07/20/2014. TECHNIQUE: AP, oblique and lateral views of the right hand. FINDINGS: No acute or intrinsic osseous, articular or soft tissue abnormality is seen. [facility] No acute findings. [facility] Jeovany, M[facility]pn Incoming Radiant Results From [facility] Analyticse/Pacs - 09/27/2019 11:39 PM EDT EXAM: XR HAND RIGHT (MIN 3 VIEWS) HISTORY: Reason for exam:->pain to lateral MCs, punched wall COMPARISON: Right hand, 07/20/2014. TECHNIQUE: AP, oblique and lateral views of the right hand. FINDINGS: No acute or intrinsic osseous, articular or soft tissue abnormality is seen. IMPRESSION: No acute findings. [facility] CBC Auto Differentialon 11-0 Basophils (Bld) [#/Vol] 0.00 10*3/uL [facility] Basophils/100 WBC (Bld) 1 % 0 - 2 % [facility] [place] Differential Type YES [facility] [place] Eosinophils (Bld) [#/Vol] 0.00 10*3/uL [place] Eosinophils/100 WBC (Bld) 1 % 0 - 5 % [place] Erythrocyte distribution width (RBC) [Ratio] 14.3 % 12.1 - 15.2 % [place] Hematocrit (Bld) [Volume fraction] 40.7 % 36 - 46 % [place] Hemoglobin (Bld) [Mass/Vol] 13.4 g/dL 12 - 16 g/dL [place] Interpretation and review of laboratory results Abnormal [place] Lymphocytes (Bld) [#/Vol] 1.20 10*3/uL [place] Lymphocytes/100 WBC (Bld) 33 % 14 - 41 % [place] MCH (RBC) [Entitic mass] 27.3 pg 25 - 35 pg [place] MCHC (RBC) [Mass/Vol] 33.0 g/dL 31 - 37 g/dL [place] MCV (RBC) [Entitic vol] 82.8 fL 78 - 102 fL [place] Monocytes (Bld) [#/Vol] 0.40 10*3/uL [place] Monocytes/100 WBC (Bld) 12 % High 4 - 8 % [place] Platelet mean volume (Bld) [Entitic vol] NOT REPORTED 6 - 12 fL [place] Platelets (Bld) [#/Vol] 235 10*3/uL [place] Platelets (Bld) [#/Vol] NOT REPORTED [place] RBC (Bld) [#/Vol] 4.92 10*6/uL 4 - 5.2 m/uL [place] RBC morphology finding Nom (Bld) NOT REPORTED [place] Segmented neutrophils/100 WBC (Bld) 53 % 45 - 76 % [place] Segs Absolute 2.10 Low [place] WBC (Bld) [#/Vol] 3.8 10*3/uL Low [place] WBC (Bld) [#/Vol] NOT REPORTED per 100 WBC [place] WBC Morphology NOT REPORTED [place] Comprehensive Metabolic Pane bonita 01-12-2019 Albumin [Mass/Vol] 4.8 g/dL High 3.2 - 4.5 g/dL [place] Albumin/Globulin [Mass ratio] NOT REPORTED [place] ALP [Catalytic activity/Vol] 88 U/L 47 - 119 U/L [place] ALT [Catalytic activity/Vol] 12 U/L 5 - 33 U/L [place] Anion gap [Moles/Vol] 17 mmol/L 9 - 17 mmol/L [place] AST [Catalytic activity/Vol] 24 U/L <32 [place] Bilirubin Ql (U) 0.46 mg/dL 0.3 - 1.2 mg/dL [place] Bun/Cre Ratio 14 [place] Calcium [Mass/Vol] 10.4 mg/dL High 8.4 - 10. 2 mg/dL [place] Chloride [Moles/Vol] 101 mmol/L 98 - 10 7 mmol/L [place] CO2 [Moles/Vol] 22 mmol/L 20 - 31 mmol/L [place] Creatinine [Mass/Vol] 0.65 mg/dL 0.5 - 0.9 mg/dL [place] GFR NOT REPORTED >60 mL/min [place] GFR Non- Pediatric GFR requires additional information. Refer to [facility]DEP website for calculator. >60 mL/min [place] GFR/1.73 sq M predicted among non-blacks MDRD (S/P/Bld) [Vol rate/Area] NOT REPORTED [place] GFR/1.73 sq M predicted among non-blacks MDRD (S/P/Bld) [Vol rate/Area] [place] Comment on above: Average GFR for <20 years old not available. Chronic Kidney Disease: <60 mL/min/1.73sq m Kidney failure: <15 mL/min/1.73sq m eGFR calculated using average adult body mass. Additional eGFR calculator available at: http://www.globalrph.UrbanBound/multiple_crcl_2012.htm Glucose [Mass/Vol] 90 mg/dL 60 - 100 mg/dL [place] Interpretation and review of laboratory results Abnormal [place] Potassium [Moles/Vol] 3.9 mmol/L 3.6 - 4.9 mmol/L [place] Protein [Mass/Vol] 8.7 g/dL High 6 - 8 g/dL [place] Sodium [Moles/Vol] 140 mmol/L 135 - 144 mmol/L [place] Urea nitrogen [Mass/Vol] 9 mg/dL 5 - 18 mg/dL [place] HCG Qualitative, Serumon hCG Qual Negative NEGATIVE [place] Comment on above: Specimens with hCG l evels near the threshold of the test (25 mIU/mL) may give a negative or indeterminate result. In such cases, another test should be performed with a new specimen in 48-72 hours. If early is suspected clinically in this setting, correlation with quantitative serum b-hCG level is suggested. [facility] has confirmed the use of plasma for this test. This has not been cleared or approved by the U.S. Food and Drug Administration. The FDA has determined that such clearance is not necessary. Otheron 01-12-2019 Immature granulocytes (Bld) [#/Vol] NOT REPORTED [place] HCG QUALITATIVE, URINEon HCG ( test) Ql (U) Negative [facility] Otheron 12-18-2018 Interpretation and review of laboratory results Abnormal [facility] URINALYSIS, MACROon 12-19-19 19 Bilirubin Ql (U) Negative NEGATIVE [facility] Clarity (U) CLEAR [facility]AR [facility] Color (U) YELLOW YELLOW [facility] Glucose Test strip (U) [Mass/Vol] Negative NEGATIVE mg/dl [facility] Hemoglobin Ql (U) Negative NEGATIVE [facility] Ketones (U) [Mass/Vol] Negative NEGATIVE mg/dl [facility] Leukocyte esterase Test strip Ql (U) Negative NEGATIVE [facility] Nitrite Ql (U) Negative NEGATIVE [facility] pH (U) 7.0 [pH] [facility] Protein Ql (U) TRACE Abnormal NEGATIVE mg/dl [facility] Specific gravity (U) [Rel density] 1.025 [facility] Urobilinogen (U) [Mass/Vol] 0.2 [facility] URINE HCG QUALon 12-18-2018 Beta HCG ( test) Ql (U) Negative Normal [facility] URINE MACROSCOPICon 12-19-19 19 Bilirubin Ql (U) Negative Normal NEGATIVE [facility] Clarity (U) CLEAR Normal CLEAR [facility] Color (U) YELLOW Normal YELLOW [facility] Glucose Ql (U) Negative Normal NEGATIVE [facility] pH (U) 7.0 [pH] Normal 5.0-7.0 [facility] Protein (U) [Mass/Vol] TRACE Abnormal NEGATIVE [facility] URINE HEMOGLOBIN Negative Normal NEGATIVE [facility] URINE KETONE Negative Normal NEGATIVE [facility] URINE LEUKOTEST Negative Normal NEGATIVE [facility] URINE NITRATES Negative Normal NEGATIVE [facility] URINE SPEC GRAVITY 1.025 Normal 1.010-1.025 [facility] Urobilinogen Qn (U) 0.2 {Manuel'U}/dL Normal 0.2-1.0 [facility] URINE MICROSCOPICon 12-19-19 19 Bacteria LM.HPF (Urine sed) [#/Area] TRACE Abnormal NEGATIVE [facility] Casts LM.LPF (Urine sed) [#/Area] NONE Normal NONE [facility] CRYSTAL NONE Normal NONE [facility] Epithelial cells LM.HPF (Urine sed) [#/Area] 10 TO 20 Normal [facility] Mucus Ql (Urine sed) Negative Normal NEGATIVE [facility] RBC (U) [#/Vol] Negative Normal NEGATIVE [facility] URINE COMMENT CULTURE CRITERIA NOT MET, NO CULTURE PERFORMED. Normal [facility] WBC (U) [#/Vol] 1 TO 5 Normal NEGATIVE [facility] Bacteria LM.HPF (Urine sed) [#/Area] TRACE Abnormal NEGATIVE [facility] Casts LM.LPF (Urine sed) [#/Area] NONE NONE /LPF [facility] Crystals LM Nom (Urine sed) NONE NONE [facility] Epithelial cells LM Ql (Urine sed) 10 TO 20 /HPF [facility] Mucus Ql (Urine sed) Negative NEGATIVE [facility] RBC LM.HPF (Urine sed) [#/Area] Negative NEGATIVE /HPF [facility] Urine sediment comments LM Vinnie (Urine sed) CULTURE CRITERIA NOT MET, NO CULTURE PERFORMED. [facility] WBC LM.HPF (Urine sed) [#/Area] 1 TO 5 NEGATIVE /HPF [facility] Strep Screen Group A Throato n 12-16-2018 S. pyogenes Ag IA Ql (Unsp spec) Rapid Strep A negative. A negative Rapid Group A Strep Screen result does not rule out the possibility of Group A Streptococci in the specimen. The [place] [employer] recommends confirmation testing. Therefore, a Group A Strep DNA test will be performed. [place], [place] Special Requests NOT REPORTED [place] Specimen Description .THROAT [place], [place] XR CHEST STANDARD (2 VW)on Negative chest. [place], [place] EXAM: XR CHEST (2 VW) HISTORY: Reason for exam:->cough COMPARISON: None. TECHNIQUE: 2 views chest FINDINGS: Heart size normal. Lungs clear. Bony thorax and upper abdomen normal. [place], [place], [facility] Incoming Radiant Results From [employer] - 12/16/2018 5:28 PM EDT EXAM: XR CHEST (2 VW) HISTORY: Reason for exam:->cough COMPARISON: None. TECHNIQUE: 2 views chest FINDINGS: Heart size normal. Lungs clear. Bony thorax and upper abdomen normal. IMPRESSION: Negative chest. [place], [place] Vital Signs Date Time Vital Sign Value Performing Clinician Shadi ag 04-13-2024 09:58-0500 Body weight 74.57 kg Jewell MATTHEWS Work Phone: [facility] 04-13-2024 09:58-0500 Diastolic blood pressure 80 mm[Hg] Jewell MATTHEWS Work Phone: [facility] 04-13-2024 09:58-0500 Systolic blood pressure 122 mm[Hg] Jewell MATTHEWS Work Phone: [facility] 04-06-2024 09:13-0500 Body weight 73.66 kg Meir Jamalfernanda MOSER Work Phone: [facility] 04-06-2024 09:13-0500 Diastolic blood pressure 74 mm[Hg] Meir Jamal DO Work Phone: [facility] 04-06-2024 09:13-0500 Systolic blood pressure 120 mm[Hg] Meir Jamal DO Work Phone: [facility] 03-06-2024 10:11-0500 Body weight 72.18 kg Jewell Macedo PA Work Phone: [facility] 03-06-2024 10:11-0500 Diastolic blood pressure 64 mm[Hg] Jewell Remington PA Work Phone: [facility] 03-06-2024 10:11-0500 Systolic blood pressure 110 mm[Hg] Jewell Remington PA Work Phone: [facility] 02-21-2024 10:13-0500 Body height 160 cm Doyle Amaro MD Work Phone: [facility] 02-21-2024 10:13-0500 Body mass index (BMI) [Ratio] 28.52 kg/m2 Doyle Amaro MD Work Phone: [facility] 02-21-2024 10:13-0500 Body weight 73.03 kg Doyle Amaro MD Work Phone: [facility] 02-21-2024 10:13-0500 Diastolic blood pressure 70 mm[Hg] Doyle Amaro MD Work Phone: [facility] 02-21-2024 10:13-0500 Systolic blood pressure 105 mm[Hg] Doyle Amaro MD Work Phone: [facility] 02-07-2024 11:12-0500 Body mass index (BMI) [Ratio] 28.63 kg/m2 Malka CURTIS Work Phone: [facility] 02-07-2024 11:12-0500 Body weight 73.3 kg Malka CURTIS Work Phone: [facility] 02-07-2024 11:12-0500 Diastolic blood pressure 60 mm[Hg] Malka Allison [employer] Work Phone: [facility] 02-07-2024 11:12-0500 Systolic blood pressure 108 mm[Hg] Malka Allison [employer] Work Phone: [facility] 01-10-2024 09:44-0500 Body mass index (BMI) [Ratio] 27.56 kg/m2 Nahed Stewart MD Work Phone: [facility] 01-10-2024 09:44-0500 Body weight 70.58 kg Nahed Stewart MD Work Phone: 3(699)600-369255 [place] [address] 01-10-2024 09:44-0500 Diastolic blood pressure 60 mm[Hg] Nahed Stewart MD Work Phone: 9(163)947-686155 [place] [address] 01-10-2024 09:44-0500 Systolic blood pressure 100 mm[Hg] Nahed Stewart MD Work Phone: 0(372)703-785955 [place] [address] 12-13-2023 09:17-0400 Body mass index (BMI) [Ratio] 26.04 kg/m2 Nahed Stewart MD Work Phone: [facility] 12-13-2023 09:17-0400 Body weight 66.68 kg Nahed Stewart MD Work Phone: [facility] 12-13-2023 09:17-0400 Diastolic blood pressure 60 mm[Hg] Nahed Stewart MD Work Phone: [facility] 12-13-2023 09:17-0400 Systolic blood pressure 100 mm[Hg] Nahed Stewart MD Work Phone: 5(640)124-505355 [place] [address] 11-11-2023 13:33-0400 Body mass index (BMI) [Ratio] 24.98 kg/m2 Nahed Stewart MD Work Phone: [facility] 11-11-2023 13:33-0400 Body weight 63.96 kg Nahed Stewart MD Work Phone: [facility] 11-11-2023 13:33-0400 Diastolic blood pressure 56 mm[Hg] Nahed Stewart MD Work Phone: [facility] 11-11-2023 13:33-0400 Systolic blood pressure 112 mm[Hg] Nahed Stewart MD Work Phone: [facility] 10-14-2023 13:27-0400 Body height 160 cm Doyle Amaro MD Work Phone: [facility] 10-14-2023 13:27-0400 Body mass index (BMI) [Ratio] 24.62 kg/m2 Doyle Amaro MD Work Phone: [facility] 10-14-2023 13:27-0400 Body weight 63.05 kg Doyle Amaro MD Work Phone: [facility] 10-14-2023 13:27-0400 Diastolic blood pressure 62 mm[Hg] Doyle Amaro MD Work Phone: [facility] 10-14-2023 13:27-0400 Systolic blood pressure 120 mm[Hg] Doyle Amaro MD Work Phone: [facility] 09-26-2023 19:52-0400 Diastolic blood pressure 86 mm[Hg] [facility] 09-26-2023 19:52-0400 Heart rate 96 /min [facility] 09-26-2023 19:52-0400 Mean blood pressure 97 mm[Hg] [facility] 09-26-2023 19:52-0400 Respiratory rate 23 /min [facility] 09-26-2023 19:52-0400 SaO2% (BldA) [Mass fraction] 99 % [facility] 09-26-2023 19:52-0400 Systolic blood pressure 120 mm[Hg] [facility] 09-26-2023 18:46-0400 Diastolic blood pressure 81 mm[Hg] Justin [facility] 09-26-2023 18:46-0400 Heart rate 89 /min [facility] 09-26-2023 18:46-0400 Mean blood pressure 96 mm[Hg] [facility] 09-26-2023 18:46-0400 Respiratory rate 18 /min [facility] 09-26-2023 18:46-0400 SaO2% (BldA) [Mass fraction] 98 % [facility] 09-26-2023 18:46-0400 Systolic blood pressure 126 mm[Hg] Justin [facility] 09-26-2023 18:00-0400 Heart rate 97 /min [facility] 09-26-2023 18:00-0400 Mean blood pressure 94 mm[Hg] Justin [facility] 09-26-2023 18:00-0400 SaO2% (BldA) [Mass fraction] 100 % [facility] 09-26-2023 18:00-0400 Systolic blood pressure 121 mm[Hg] [facility] 09-26-2023 16:57-0400 Body temperature 98.96 [degF] [facility] 09-26-2023 16:57-0400 Heart rate 94 /min [facility] 09-26-2023 16:57-0400 Respiratory rate 18 /min [facility] 09-26-2023 16:42-0400 Body temperature 98.6 [degF] [facility] 09-26-2023 16:42-0400 Heart rate 106 /min [facility] 09-26-2023 16:42-0400 Respiratory rate 18 /min [facility] 09-24-2023 13:28-0400 Body height 160 cm Avg Gurjit Gal [id number] [facility] 09-24-2023 13:28-0400 Body mass index (BMI) [Ratio] 23.91 kg/m2 Avg Gurjit Gal [address] 09-24-2023 13:28-0400 Body weight 61.24 kg Avg Gurjit Gal [id number] [facility] 09-24-2023 13:28-0400 Diastolic blood pressure 68 mm[Hg] Avg Gurjit Gal [id number] [facility] 09-24-2023 13:28-0400 Systolic blood pressure 112 mm[Hg] Avg Gurjit Gal [id number] [facility] 09-16-2023 08:37-0400 Body temperature 98.24 [degF] [facility] 09-16-2023 08:37-0400 Diastolic blood pressure 78 mm[Hg] [facility] 09-16-2023 08:37-0400 Heart rate 76 /min [facility] 09-16-2023 08:37-0400 Respiratory rate 18 /min [facility] 09-16-2023 08:37-0400 SaO2% (BldA) [Mass fraction] 100 % [facility] 09-16-2023 08:37-0400 Systolic blood pressure 126 mm[Hg] [facility] 09-13-2023 10:56-0400 Blood Pressure Location Pari Underwood [facility] 09-13-2023 10:56-0400 Body temperature 97.88 [degF] Pari Underwood [facility] 09-13-2023 10:56-0400 Diastolic blood pressure 68 mm[Hg] Pari Underwood [facility] 09-13-2023 10:56-0400 Heart rate 74 /min Pari Underwood [facility] 09-13-2023 10:56-0400 Respiratory rate 18 /min Pari Underwood [facility] 09-13-2023 10:56-0400 SaO2% (BldA) [Mass fraction] 98 % Pari Underwood [facility] 09-13-2023 10:56-0400 Systolic blood pressure 110 mm[Hg] Pari Underwood [facility] 08-13-2023 14:20-0400 Blood Pressure Location Pari Underwood [facility] 08-13-2023 14:20-0400 Body temperature 97.88 [degF] Pari Underwood [facility] 08-13-2023 14:20-0400 Diastolic blood pressure 80 mm[Hg] Pari Underwood [facility] 08-13-2023 14:20-0400 Heart rate 88 /min Pari Underwood [facility] 08-13-2023 14:20-0400 Respiratory rate 16 /min Pari Underwood [facility] 08-13-2023 14:20-0400 SaO2% (BldA) [Mass fraction] 99 % Pari Bazzizier [facility] 08-13-2023 14:20-0400 Systolic blood pressure 122 mm[Hg] Pari Bazzizier [facility] 08-04-2023 14:57-0400 Body mass index (BMI) [Ratio] 22.96 kg/m2 Nahed Stewart MD Work Phone: [facility] 08-04-2023 14:57-0400 Body weight 58.79 kg Nahed Stewart MD Work Phone: [facility] 08-04-2023 14:57-0400 Diastolic blood pressure 62 mm[Hg] Nahed Stewart MD Work Phone: [facility] 08-04-2023 14:57-0400 Systolic blood pressure 120 mm[Hg] Nahed Stewart MD Work Phone[facility] 04-16-2023 14:16-0500 Body mass index (BMI) [Ratio] 20.87 kg/m2 Nahed Stewart MD Work Phone: [facility] 04-16-2023 14:16-0500 Body weight 53.43 kg Nahed Stewart MD Work Phone: [facility] 04-16-2023 14:16-0500 Diastolic blood pressure 76 mm[Hg] Nahed Stewart MD Work Phone: [facility] 04-16-2023 14:16-0500 Systolic blood pressure 118 mm[Hg] Nahed Stewart MD Work Phone: [facility] 10-23-2022 09:25-0400 Body height 160 cm Nahed Stewart MD Work Phone: [employer] [facility] 10-23-2022 09:25-0400 Body mass index (BMI) [Ratio] 21.33 kg/m2 Nahed Stewart MD [facility] 10-23-2022 09:25-0400 Body weight 54.61 kg Nahed Stewart MD Work Phone: [facility] 10-23-2022 09:25-0400 Diastolic blood pressure 68 mm[Hg] Nahed Stewart MD Work Phone: [facility] 10-23-2022 09:25-0400 Systolic blood pressure 100 mm[Hg] Nahed Stewart MD Work Phone: [facility] 09-01-2022 13:16-0400 Body mass index (BMI) [Ratio] 21.36 kg/m2 Nahed Stewart MD Work Phone: [facility] 09-01-2022 13:16-0400 Body weight 54.7 kg Nahed Stewart MD Work Phone: [facility] 09-01-2022 13:16-0400 Diastolic blood pressure 66 mm[Hg] Nahed Stewart MD Work Phone: [facility] 09-01-2022 13:16-0400 Systolic blood pressure 120 mm[Hg] Nahed Stewart MD Work Phone: [facility] 06-08-2022 13:20-0400 Body temperature 98.71 [degF] [facility] 06-08-2022 13:20-0400 Diastolic blood pressure 70 mm[Hg] [facility] 06-08-2022 13:20-0400 Heart rate 82 /min [facility] 06-08-2022 13:20-0400 Respiratory rate 18 /min [facility] 06-08-2022 13:20-0400 SaO2% (BldA) [Mass fraction] 97 % [facility] 06-08-2022 13:20-0400 Systolic blood pressure 117 mm[Hg] [facility] 04-22-2022 09:40-0500 Body mass index (BMI) [Ratio] 21.01 kg/m2 Nahed Stewart MD [facility] 04-22-2022 09:40-0500 Body weight 53.8 kg Nahed Stewart MD Work Phone: [facility] 04-22-2022 09:40-0500 Diastolic blood pressure 62 mm[Hg] Nahed Stewart MD Work Phone: [facility] 04-22-2022 09:40-0500 Systolic blood pressure 110 mm[Hg] Nahed Stewart MD Work Phone: [facility] 03-20-2022 14:35-0500 Body mass index (BMI) [Ratio] 22.21 kg/m2 Nahed Stewart MD Work Phone: [facility] 03-20-2022 14:35-0500 Body weight 56.88 kg Nahed Stewart MD Work Phone: [facility] 03-20-2022 14:35-0500 Diastolic blood pressure 70 mm[Hg] Nahed Stewart MD Work Phone: [facility] 03-20-2022 14:35-0500 Systolic blood pressure 118 mm[Hg] Nahed Stewart MD Work Phone: [facility] 10-24-2021 14:45-0400 Body height 160 cm Nahed Stewart MD Work Phone: [facility] 10-24-2021 14:45-0400 Body mass index (BMI) [Ratio] 23.03 kg/m2 Nahed Stewart MD Work Phone: [facility] 10-24-2021 14:45-0400 Body weight 58.97 kg Nahed Stewart MD Work Phone: [facility] 10-24-2021 14:45-0400 Diastolic blood pressure 62 mm[Hg] Nahed Stewart MD Work Phone: [facility] 10-24-2021 14:45-0400 Systolic blood pressure 120 mm[Hg] Nahed Stewart MD Work Phone: [facility] 08-05-2021 09:20-0400 Body mass index (BMI) [Ratio] 28.09 kg/m2 Nahed Stewart MD Work Phone: [facility] 08-05-2021 09:20-0400 Body weight 71.94 kg Nahed Stewart MD Work Phone: [facility] 08-05-2021 09:20-0400 Diastolic blood pressure 56 mm[Hg] Nahed Stewart MD Work Phone: [facility] 08-05-2021 09:20-0400 Systolic blood pressure 98 mm[Hg] Nahed Stewart MD Work Phone: [facility] 07-28-2021 09:03-0400 Body height 160 cm Doyle Amaro MD Work Phone: 0(176)312-122855 [place] [address] 07-28-2021 09:03-0400 Body mass index (BMI) [Ratio] 27.46 kg/m2 Doyle Amaro MD Work Phone: 6(532)991-731755 [place] [address] 07-28-2021 09:03-0400 Body weight 70.31 kg Doyle Amaro MD Work Phone: 4(125)[phone] [place] [address] 07-28-2021 09:03-0400 Diastolic blood pressure 64 mm[Hg] Doyle Amaro MD Work Phone: [facility] 07-28-2021 09:03-0400 Systolic blood pressure 140 mm[Hg] Doyle Amaro MD Work Phone: [facility] 07-14-2021 09:00-0400 Body height 160 cm Malka Allison APRN[employer] Work Phone: [facility] 07-14-2021 09:00-0400 Body mass index (BMI) [Ratio] 26.75 kg/m2 Malka Allison [employer] Work Phone: [facility] 07-14-2021 09:00-0400 Body weight 68.49 kg Malka Allison [employer] Work Phone: [facility] 07-14-2021 09:00-0400 Diastolic blood pressure 62 mm[Hg] Malka Allison APRN[employer] Work Phone: 9(350)696-357555 [place] [address] 07-14-2021 09:00-0400 Systolic blood pressure 106 mm[Hg] Malka Allison [employer] Work Phone: [facility] 06-30-2021 09:33-0400 Body height 160 cm Doyle Amaro MD Work Phone: [facility] 06-30-2021 09:33-0400 Body mass index (BMI) [Ratio] 26.04 kg/m2 Doyle Amaro MD Work Phone: 9(150)485-712655 [place] [address] 06-30-2021 09:33-0400 Body weight 66.68 kg Doyle Amaro MD Work Phone: 0(350)[phone] [place] [address] 06-30-2021 09:33-0400 Diastolic blood pressure 64 mm[Hg] Doyle Amaro MD Work Phone: 1(278)545-902555 [place] [address] 06-30-2021 09:33-0400 Systolic blood pressure 102 mm[Hg] Doyle Amaro MD Work Phone: [facility] 06-16-2021 09:08-0400 Body height 160 cm Malka Allison [employer] Work Phone: [facility] 06-16-2021 09:08-0400 Body mass index (BMI) [Percentile] Per age and sex 84.17 % Malka Allison [employer] Work Phone: [facility] 06-16-2021 09:08-0400 Body mass index (BMI) [Ratio] 25.86 kg/m2 Malka Allison [employer] Work Phone: [facility] 06-16-2021 09:08-0400 Body weight 66.22 kg Malka Allison [employer] Work Phone: [facility] 06-16-2021 09:08-0400 Diastolic blood pressure 64 mm[Hg] Malka Allison [employer] Work Phone: [facility] 06-16-2021 09:08-0400 Systolic blood pressure 106 mm[Hg] Malka Allison [employer] Work Phone: [employer] 06-02-2021 09:07-0400 Body mass index (BMI) [Percentile] Per age and sex 79.15 % Nahed Stewart MD Work Phone: [employer] 06-02-2021 09:07-0400 Body mass index (BMI) [Ratio] 24.8 kg/m2 Nahed Stewart MD Work Phone: [employer] 06-02-2021 09:07-0400 Body weight 63.5 kg Nahed Stewart MD Work Phone: [employer] 06-02-2021 09:07-0400 Diastolic blood pressure 56 mm[Hg] Nahed Stewart MD Work Phone: [employer] 06-02-2021 09:07-0400 Systolic blood pressure 100 mm[Hg] Nahed Stewart MD Work Phone: [employer] 05-13-2021 10:08-0500 Body height 160 cm Malka Allison [employer] Work Phone: [employer] 05-13-2021 10:08-0500 Body mass index (BMI) [Percentile] Per age and sex 72.35 % Malkaignacia Allison [employer] Work Phone: [facility] 05-13-2021 10:08-0500 Body mass index (BMI) [Ratio] 23.74 kg/m2 Malka Allison [employer] Work Phone: [facility] 05-13-2021 10:08-0500 Body weight 60.78 kg Malka Allison [employer] Work Phone: [facility] 05-13-2021 10:08-0500 Diastolic blood pressure 62 mm[Hg] Malka Allison [employer] Work Phone: [facility] 05-13-2021 10:08-0500 Systolic blood pressure 104 mm[Hg] Malka Allison [employer] Work Phone: [facility] 04-22-2021 14:24-0500 Body mass index (BMI) [Percentile] Per age and sex 72.49 % Nahed Stewart MD Work Phone: [facility] 04-22-2021 14:24-0500 Body mass index (BMI) [Ratio] 23.74 kg/m2 Nahed Stewart MD Work Phone: [facility] 04-22-2021 14:24-0500 Body weight 60.78 kg Nahed Stewart MD Work Phone: [facility] 04-22-2021 14:24-0500 Diastolic blood pressure 70 mm[Hg] Nahed Stewart MD Work Phone: [employer] 04-22-2021 14:24-0500 Systolic blood pressure 112 mm[Hg] Nahed Stewart MD Work Phone: [facility] 03-13-2021 10:20-0500 Body height 160 cm Doyle Amaro MD Work Phone: [facility] 03-13-2021 10:20-0500 Body mass index (BMI) [Percentile] Per age and sex 59.91 % Doyle Amaro MD Work Phone: [facility] 03-13-2021 10:20-0500 Body mass index (BMI) [Ratio] 22.32 kg/m2 Doyle Amaro MD Work Phone: [facility] 03-13-2021 10:20-0500 Body weight 57.15 kg Doyle Amaro MD Work Phone: [facility] 03-13-2021 10:20-0500 Diastolic blood pressure 76 mm[Hg] Doyle Amaro MD Work Phone: [facility] 03-13-2021 10:20-0500 Systolic blood pressure 122 mm[Hg] Doyle Amaro MD Work Phone: [facility] 02-06-2021 09:17-0500 Body height 160 cm Doyle Amaro MD Work Phone: [facility] 02-06-2021 09:17-0500 Body mass index (BMI) [Percentile] Per age and sex 56.34 % Doyle Amaro MD Work Phone: [facility] 02-06-2021 09:17-0500 Body mass index (BMI) [Ratio] 21.97 kg/m2 Doyle Amaro MD Work Phone: [facility] 02-06-2021 09:17-0500 Body weight 56.25 kg Doyle Amaro MD Work Phone: [facility] 02-06-2021 09:17-0500 Diastolic blood pressure 70 mm[Hg] Doyle Amaro MD Work Phone: [facility] 02-06-2021 09:17-0500 Systolic blood pressure 112 mm[Hg] Doyle Amaro MD Work Phone: [facility] 01-14-2021 09:45-0500 Body height 160 cm Avg Gurjit Gal [id number] [facility] 01-14-2021 09:45-0500 Body mass index (BMI) [Percentile] Per age and sex 60.4 % Avg Gurjit Gal [id number] [facility] 01-14-2021 09:45-0500 Body mass index (BMI) [Ratio] 22.32 kg/m2 Avg Gurjit Gal [id number] [facility] 01-14-2021 09:45-0500 Body weight 57.15 kg Avg Gurjit Gal [id number] [facility] 01-14-2021 09:45-0500 Diastolic blood pressure 72 mm[Hg] Avg Gurjit Gal [id number] [facility] 01-14-2021 09:45-0500 Systolic blood pressure 112 mm[Hg] Avg Gurjit Gal [id number] [facility] 09-28-2019 08:35-0400 BP Diastolic 68 mm[Hg] [place] 09-28-2019 08:35-0400 BP Systolic 140 mm[Hg] [place] 09-28-2019 08:35-0400 Pulse (Heart Rate) 92 /min [facility] [place], [place] 09-28-2019 08:35-0400 Pulse Oximetry 99 % [facility] 09-28-2019 08:35-0400 Respiratory Rate 16 /min [facility] 09-28-2019 06:54-0400 Body Temperature 98.29 [degF] [facility] 09-27-2019 22:49-0400 BMI (Body Mass Index) 21.43 kg/m2 [facility] 09-27-2019 22:49-0400 Body weight 54.88 kg [facility] 09-27-2019 22:49-0400 Height 160 cm [facility] 05-19-2019 19:55-0400 BP Diastolic 59 mm[Hg] [facility] 05-19-2019 19:55-0400 BP Systolic 114 mm[Hg] [facility] 05-19-2019 19:55-0400 Pulse (Heart Rate) 66 /min [facility] 05-19-2019 19:55-0400 Pulse Oximetry 100 % [facility] 05-19-2019 19:55-0400 Respiratory Rate 18 /min [facility] 05-19-2019 18:36-0400 BMI (Body Mass Index) 21.97 kg/m2 [facility] 05-19-2019 18:36-0400 Body Temperature 98.29 [degF] [facility] 05-19-2019 18:36-0400 Body weight 56.25 kg [facility] 05-19-2019 18:36-0400 Height 160 cm [facility] 03-08-2019 18:31-0500 Body temperature 98.1 [degF] Peter Petty MD Work Phone: [facility] Work Phone: 03-08-2019 18:31-0500 Body weight 57.15 kg Peter Petty MD Work Phone: [employer] Work Phone: 03-08-2019 18:31-0500 Diastolic blood pressure 90 mm[Hg] Peter Petty MD Work Phone: [employer] Work Phone: 03-08-2019 18:31-0500 Heart rate 86 /min Peter Petty MD Work Phone: [employer] Work Phone: 03-08-2019 18:31-0500 Respiratory rate 20 /min Peter Petty MD Work Phone: [employer] Work Phone: 03-08-2019 18:31-0500 SaO2% (BldA) [Mass fraction] 100 % Peter Petty MD Work Phone: [employer] Work Phone: 03-08-2019 18:31-0500 Systolic blood pressure 139 mm[Hg] Peter Petty MD Work Phone: [employer] Work Phone: 01-12-2019 23:01-0500 Pulse Oximetry 99 % [facility] [employer] [facility] [employer] [place] 01-12-2019 22:49-0500 BP Diastolic 80 mm[Hg] [facility] [employer] [facility] [place] 01-12-2019 22:49-0500 BP Systolic 107 mm[Hg] [facility] [employer] [facility] [place] 01-12-2019 22:17-0500 Body Temperature 97.59 [degF] [facility] [employer] [place] 01-12-2019 22:17-0500 Body weight 55.02 kg [facility] [employer] [employer] [place] 01-12-2019 22:17-0500 Pulse (Heart Rate) 64 /min [facility], [place] 01-12-2019 22:17-0500 Respiratory Rate 16 /min [place] 12-18-2018 14:52-0400 Height 160 cm [facility] 12-18-2018 14:47-0400 Body Temperature 99.81 [degF] [facility] 12-18-2018 14:47-0400 BP Diastolic 62 mm[Hg] [facility] 12-18-2018 14:47-0400 BP Systolic 108 mm[Hg] [facility] 12-18-2018 14:47-0400 Pulse (Heart Rate) 82 /min [facility] 12-18-2018 14:47-0400 Pulse Oximetry 96 % [facility] 12-18-2018 14:47-0400 Respiratory Rate 18 /min [facility] 12-16-2018 16:47-0400 BP Diastolic 46 mm[Hg] [place] 12-16-2018 16:47-0400 BP Systolic 94 mm[Hg] [place] 12-16-2018 16:46-0400 Body Temperature 99.19 [degF] [place], [place] 12-16-2018 16:46-0400 Body weight 55.2 kg [place] 12-16-2018 16:46-0400 Pulse (Heart Rate) 84 /min [place], [place] 12-16-2018 16:46-0400 Pulse Oximetry 100 % [place] 12-16-2018 16:46-0400 Respiratory Rate 16 /min [place], [place] Encounters Encounter Date Encounter Type Care Provider Facility Start: 04-14-2024 End: 04-14-2024 Clinisync Result Encounter Meir Berry DO Work Phone: [facility] Unsolicited Start: 04-14-2024 End: 04-14-2024 Clinisync Result Encounter Meir Godwino DO Work Phone: [facility] Unsolicited Start: 04-13-2024 End: 04-13-2024 Bamboo flowsheet Jewell MATTHEWS Work Phone: [facility] Start: 04-13-2024 End: 04-13-2024 Bamboo flowsheet Jewell MATTHEWS Work Phone: [facility] Start: 04-13-2024 End: 04-13-2024 ambulatory JEWELL MACEDO Not Available Start: 04-13-2024 End: 04-13-2024 flow sheet Jewell [...] Unsolicited Start: 03-30-2024 End: 03-30-2024 ambulatory JEWELL TRANEY Not Available Start: 03-06-2024 End: 03-06-2024 Bamboo flowsheet Jewell MATTHEWS Work Phone: [facility] Start: 03-06-2024 End: 03-06-2024 Bamboo flowsheet Jewell MATTHEWS Work Phone: [facility] Start: 03-06-2024 End: 03-06-2024 ambulatory JEWELL TRANEY Not Available Start: 03-06-2024 End: 03-06-2024 Office [...] 02-21-2024 End: 02-21-2024 Subsequent care visit Doyle Aamro MD Work Phone: [facility] [employer] Comment on above: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
[2024-04-17 08:16] VITALS: BP 119/75; PULSE 91
== END 2024-04-17 08:59 | disposition home or self-care (01) ==
LOC: FBCO 01:30 → FBC 08:12
PROVIDERS: Visit Provider Obstetrics & Gynecology
DX: O26.893 Other specified pregnancy related conditions, third trimester (principal); Z3A.38 38 weeks gestation of pregnancy
CPT/HCPCS: 59025

== ENCOUNTER 2024-04-18 05:10 | Inpatient (IN) | payer OTHER, MEDICAID, SELFPAY ==
[2024-04-18] VITALS (48 sets, daily range): BP systolic 110–184; BP diastolic 57–94; PULSE 61–101; TEMP 36.2–36.7
--- OUTSIDE RECORDS SUMMARY | 2024-04-18 05:14 | XMS_ITS | CCD ---
Author Organization [facility] Care Team Providers Care Hydroelectric Component Machinist Name Role Phone Kelli Amaya Primary Care Provider [phone] Kelli Amaya Primary Care Provider [phone] Kelli Amaya Primary Care Provider [phone] Unavailable Primary Care Provider Kelli Moreno MD [...] Attending Unavailable Justin Hewitt Attending Unavailable Gina, RESEARCH BIOSTATISTICIAN Kalani L Attending Unavailable Unavailable Primary Care [...] Medication Allergies] Propensity to adverse reactions (disorder) [facility] Medications Current Medications Medication Drug [...] thereafter., # 45 tab(s), Refills(s) 0, Pharmacy: [facility] #[id number], 160, cm, 08/13/23 14:37:00 EDT, Height/Length Dosing, [...] US OB BPP W NON-STRESS on 04-14-[address] [address] Ultrasound Report Signed Patient: KATHRIN SANTANA MR#: [id number] : 2000 Acct:[id number] Age/Sex: 23 / F ADM Date: 04/13/24 Loc: US Attending Dr: Meir Berry D.O. Ordering Physician: Meir Berry D.O. Date of Service: 04/13/24 Procedure(s): US OB BPP w non-stress Accession Number(s): [id number] cc: Meir Berry D.O.; Physician,Non-Staff [facility] [address] [address] Patient Name: KATHRIN SANTANA MRN: [facility]:[id number] date: 2000 Sex: F Assigned Patient Location: [facility] Current Patient Location: Accession/Order Number: [id number] Exam Date: 04/13/2024 20:24 Report Date: 04/14/2024 [...] Signed By: 04/14/24 0754 DD/ 0752 TD/TT: Chef Head: [facility] Radiology, Radiologist, MD - 04/14/2024 [facility] [place] [id number] Ultrasound Report Signed Patient: KATHRIN SANTANA MR#: [id number] : 2000 Acct:[id number] Age/Sex: 23 / F ADM Date: 04/13/24 Loc: US Attending Dr: Meir Berry D.O. Ordering Physician: Meir Berry D.O. Date of Service: 04/13/24 Procedure(s): US OB BPP w non-stress Accession Number(s): [id number] cc: Meir Berry D.O.; Physician,Non-Staff [facility] [address] [address] Patient Name: KATHRIN SANTANA MRN: [facility]:[id number] date: 2000 Sex: F Assigned Patient Location: [facility] Current Patient Location: Accession/Order Number: [id number] Exam Date: 04/13/2024 20:24 Report Date: 04/14/2024 [...] Signed By: 04/14/24 0754 DD/ 075 TD/TT: Chef Head: [facility] Radiology Study observation (narrative) [facility] US OB BPP W NON-STRESS Ordered By: Radiologist Radiology on 04-14-2024 [facility] Work Phone: Urinalysis macro (dipstick) panel (U)on 04-13-2024 Bilirubin, UA Negative Negative - 4(70) +++ mg/dL [facility] Blood, UA Positive Negative - 50 Zackery/mcL [facility] Clarity, UA Clear [facility] Color, UA Yellow [facility] Glucose, UA Negative Negative - 1999(110) ++++ mg/dL [facility] Interpretation and review of laboratory results Abnormal [facility] Ketones, UA Negative Negative - 160(16) ++++ mg/dL [facility] Leukocytes, UA Trace Negative - 500+++ Katelyn/mcL [facility] Nitrite, UA Negative Negative - Positive [facility] pH, UA 7 5 - 9 [facility] Protein, UA Negative Negative - 1999(20) ++++ mg/dL [facility] Spec Grav, UA 1.02 1 - 1.03 [facility] Urobilinogen, UA 0.2 0.2 - 12 mg/dL formerly [facility] US OB BPP W NON-STRESS on 04-06-2024 [place] [address] Ultrasound Report Signed Patient: KATHRIN SANTANA MR#: [id number] : 2000 Acct:[id number] Age/Sex: 23 / F ADM Date: 04/06/24 Loc: [facility] 255-[address]: Meir Berry D.O. Ordering Physician: Meir Berry D.O. Date of Service: 04/06/24 Procedure(s): US OB BPP w non-stress Accession Number(s): [id number] cc: Meir Berry D.O.; Physician,Non-Staff M.[facility]an [address] [address] Patient Name: KATHRIN SANTANA MRN: [id number] date: 2000 Sex: F Assigned Patient Location: [facility] Current Patient Location: [facility] Accession/Order Number: [id number] Exam Date: 04/06/2024 10:15 Report Date: 04/06/2024 [...] Signed By: 04/06/24 1047 DD/ 1044 TD/TT: Chef Head: [facility] Radiology, Radiologist, MD - 04/06/2024 [place] [address] Ultrasound Report Signed Patient: KATHRIN SANTANA MR#: [id number] : 2000 Acct:[id number] Age/Sex: 23 / F ADM Date: 04/06/24 Loc: [facility] 255-[address]: Meir Berry D.O. Ordering Physician: Meir Berry D.O. Date of Service: 04/06/24 Procedure(s): US OB BPP w non-stress Accession Number(s): [id number] cc: Meir Berry D.O.; Physician,Non-Staff MWilliam [facility] [place] [id number] Patient Name: KATHRIN SANTANA MRN: [facility]:[id number] date: 2000 Sex: F Assigned Patient Location: [facility] Current Patient Location: [facility] Accession/Order Number: [id number] Exam Date: 04/06/2024 10:15 Report Date: 04/06/2024 [...] Signed By: 04/06/24 1047 DD/ 1044 TD/TT: Chef Head: [facility] Rad[facility] Study observation (narrative) [facility] US OB BPP W NON-STRESS Ordered By: Radiologist Radiology on 04-06-2024 [facility] Work Phone: Urinalysis macro (dipstick) panel (U)on 04-06-2024 Bilirubin, UA Negative Negative - 4(70) +++ mg/dL [facility] Blood, UA Negative Negative - 50 Zackery/mcL [facility] Clarity, UA Clear [facility] Color, UA Yellow [facility] Glucose, UA Negative Negative - 1999(110) ++++ mg/dL [facility] Interpretation and review of laboratory results Normal [facility] Ketones, UA Negative Negative - 160(16) ++++ mg/dL [facility] Leukocytes, UA Negative Negative - 500+++ Katelyn/mcL [facility] Nitrite, UA Negative Negative - Positive [facility] pH, UA 7 5 - 9 [facility] Protein, UA Negative Negative - 1999(20) ++++ mg/dL [facility] Spec Grav, UA 1.02 1 - 1.03 [facility] Urobilinogen, UA 0.2 0.2 - 12 mg/dL formerly [facility] ALL MISCELLANEOUS TESTon MISCELLANEOUS TEST COMMENT . [facility] Comment on above: Test Ordered: [id number] Strep Gp B Culture+Rflx Strep Gp B Culture+Rflx Negative CB Reference Range: Negative Centers for Disease Control and Prevention (CDC) and [place] [employer] of [employer]stetricians and Gynecologists (ACOG) guidelines [...] resistance to clindamycin is noted. Performed at: [facility] [id number] Loan Manager: Brenton Montiel PhD, Phone: [phone] GROUP B STREP [id number] Group B Streptococcus Colonization Detection Culture With [facility] Urinalysis macro (dipstick) panel (U)on 03-06-2024 Bilirubin, UA Negative Negative - 4(70) +++ mg/dL [facility] Blood, UA Negative Negative - 50 Zackery/mcL [facility] Clarity, UA Clear [facility] Color, UA Yellow [facility] Glucose, UA Negative Negative - 2000(110) ++++ mg/dL [facility] Interpretation and review of laboratory results Normal [facility] Ketones, UA Negative Negative - 160(16) ++++ mg/dL [facility] Leukocytes, UA Negative Negative - 500+++ Katelyn/mcL [facility] Nitrite, UA Negative Negative - Positive [facility] pH, UA 7 5 - 9 [facility] Protein, UA Negative Negative - 2000(20) ++++ mg/dL [facility] Spec Grav, UA 1.015 1 - 1.03 [facility] Urobilinogen, UA 0.2 0.2 - 12 mg/dL [facility] ALL CBC WITH AUTO DIFFon BASOPHILS ABSOLUTE AUTO 0 [facility] Basophils/100 WBC (Bld) 0.5 % 0.2 - 2.0 % [facility] Eosinophils/100 WBC (Bld) 1 % 0.9 - 7.0 % [facility] Erythrocyte distribution width (RBC) [Ratio] 13.4 % 11.0 - 15.0 % [facility] Hematocrit (Bld) [Volume fraction] 29.5 % Low 36.0 - 48.0 % [facility] Hemoglobin (Bld) [Mass/Vol] 9.5 g/dL Low 12.0 - 16.0 g/dL [facility] IMMATURE GRANULOCYTES ABS AUTO 0.08 High [facility] Immature granulocytes/100 WBC (Bld) 1.9 % High 0.0 - 0.5 % [facility] Interpretation and review of laboratory results Abnormal [facility] LYMPHOCYTES ABSOLUTE AUTO 0.9 Low [facility] Lymphocytes/100 WBC (Bld) 21.7 % 20.5 - 60.0 % [facility] MCH (RBC) [Entitic mass] 27.1 pg 26.7 - 34.0 pg [facility] MCHC (RBC) [Mass/Vol] 32.2 g/dL 29.9 - 35.2 g/dL [facility] MCV (RBC) [Entitic vol] 84 fL 81.0 - 99.0 fL [facility] MONOCYTES ABSOLUTE AUTO 0.4 [facility] Monocytes/100 WBC (Bld) 9.3 % 1.7 - 12.0 % [facility] NEUTROPHILS ABSOLUTE AUTO 2.8 [facility] Neutrophils/100 WBC (Bld) 65.6 % 43.0 - 75.0 % [facility] Platelet mean volume (Bld) [Entitic vol] 9.2 fL Low 9.5 - 13.5 fL [facility] EO # 0 [facility] PLT 184 [facility] RBC 3.51 Low [facility] WBC 4.2 [facility] INFLUENZA A AND B AGon 1 04-29-2023 INFLUENZA VIRUS A ANTIGEN Negative [facility] Comment on above: Negative for Flu A p rotein antigen. Infection due to Flu A cannot be ruled out. Flu A antigen in the sample may be below the detection limit of the test. INFLUENZA VIRUS B ANTIGEN Negative [facility] Comment on above: Negative for Flu B p rotein antigen. Infection due to Flu B cannot be ruled out. Flu B antigen in the sample may be below the detection limit of the test. [facility] UA (CLEAN/CATCH) STAGECRAFT TEACHER/JEFFREY RO IF IND.on 02-26-2024 BILIRUBIN URINE SMALL [...] Healthcare [facility] UA (CLEAN/CATCH) STAGECRAFT TEACHER/JEFFREY RO IF IND.on 02-18-2024 BILIRUBIN URINE Negative [...] RPR Ql (S) Non-Reactive Normal NONREACTIVE A [facility] Comment on above: Result Comment: Test ing performed at [place] [address] Performed By: #### C TNG #### Testing performed at [address] [address] CBCon 02-07-2024 ABSOLUTE BAS 0.0 10*3/uL Normal 0.0-0.2 [facility] Comment on above: Result Comment: Test ing performed at [place] [address] Performed By: #### C TNG #### Testing [place] [address] ABSOLUTE EOS 0.2 10*3/uL Normal 0.0-0.7 [facility] Comment on above: Performed By: #### C TNG #### Testing performed at [place] [id number] ABSOLUTE NEUTROPHIL COUNT 8.6 10*3/uL High 1.4-6.5 [facility] [place] Comment on above: Performed By: #### C TNG #### Testing [place] [address] Basophils/100 WBC (Bld) 0.4 % Normal 0.0-2.0 [facility] [place] Comment on above: Performed By: #### C TNG #### Testing [place] [address] DTYPE AUTO DIFF Normal [facility] [place] Comment on above: Performed By: #### C TNG #### Testing performed at [place] [id number] Eosinophils/100 WBC (Bld) 2.0 % Normal 0.0-11.0 [facility] [place] Comment on above: Performed By: #### C TNG #### Testing performed at [place] [id number] Lymphocytes (Bld) [#/Vol] 1.4 10*3/uL Normal 1.2-3.4 [facility] [place] Comment on above: Performed By: #### C TNG #### Testing performed at [place] [address] Lymphocytes/100 WBC (Bld) 12.9 % Low 20.0-55.0 [facility] [place] Comment on above: Performed By: #### C TNG #### Testing performed at [place] [id number] Monocytes (Bld) [#/Vol] 0.8 10*3/uL High 0.0-0.7 [facility] [place] Comment on above: Performed By: #### C TNG #### Testing performed at [place] [address] Monocytes/100 WBC (Bld) 7.5 % Normal 0.0-10.0 [facility] [place] Comment on above: Performed By: #### C TNG #### Testing performed at [place] [address] Neutrophils/100 WBC (Bld) 77.2 % High 37.0-75.0 [facility] [place] Comment on above: Performed By: #### C TNG #### Testing performed at [place] [id number] Erythrocyte distribution width (RBC) [Ratio] 14.1 % Normal 11.5-14.5 [facility] [place] Comment on above: Performed By: #### C TNG #### Testing [place] [address] Hematocrit (Bld) [Volume fraction] 35.9 % Low 36.0-48.0 [facility] [place] Comment on above: Performed By: #### C TNG #### Testing performed at [place] [address] Hemoglobin (Bld) [Mass/Vol] 11.6 g/dL Low 12.0-16.0 [facility] [place] Comment on above: Performed By: #### C TNG #### Testing performed at [place] [address] MCH (RBC) [Entitic mass] 28.1 pg Normal 26.0-35.0 [facility] [place] Comment on above: Performed By: #### C TNG #### Testing performed at [place] [address] MCHC (RBC) [Mass/Vol] 32.3 g/dL Normal 27.0-37.0 [facility] Comment on above: Performed By: #### C TNG #### Testing performed at [place] [address] MCV (RBC) [Entitic vol] 87.1 fL Normal 80.0-100.0 [facility] [place] Comment on above: Performed By: #### C TNG #### Testing [place] [address] Platelet mean volume (Bld) [Entitic vol] 8.5 fL Normal 7.4-11.0 [facility] [place] Comment on above: Performed By: #### C TNG #### [place] [address] Platelets (Bld) [#/Vol] 246 10*3/uL Normal 130-400 [facility] [place] Comment on above: Performed By: #### C TNG #### [place] [address] RBC (Bld) [#/Vol] 4.12 10*6/uL Normal 4.0-5.4 [facility] [place] Comment on above: Performed By: #### C TNG #### [place] [address] WBC (Bld) [#/Vol] 11.1 10*3/uL High 3.6-11.0 [facility] Comment on above: Performed By: #### C TNG #### Testing [place] [address] CBC, EDIF, PLATELETon 2023 ABSOLUTE BASOPHIL COUNT 0.0 10*3/uL 0.0 - 0.2 10*3/uL [facility] Comment on above: Testing performed at [place] [address] Basophils/100 WBC (Bld) 0.4 % 0.0 - 2.0 % [facility] Differential cell count method Nom (Bld) AUTO DIFF % [facility] Eosinophils (Bld) [#/Vol] 0.2 10*3/uL 0.0 - 0.7 10*3/uL [facility] Eosinophils/100 WBC (Bld) 2.0 % 0.0 - 11.0 % [facility] Erythrocyte distribution width (RBC) [Ratio] 14.1 % 11.5 - 14.5 % [facility] Hematocrit (Bld) [Volume fraction] 35.9 % Low 36.0 - 48.0 % [facility] Hemoglobin (Bld) [Mass/Vol] 11.6 g/dL Low [facility] Interpretation and review of laboratory results Abnormal [facility] Lymphocytes (Bld) [#/Vol] 1.4 10*3/uL 1.2 - 3.4 10*3/uL [facility] Lymphocytes/100 WBC (Bld) 12.9 % Low 20.0 - 55.0 % [facility] MCH (RBC) [Entitic mass] 28.1 pg 26.0 - 35.0 PG [facility] MCHC (RBC) [Mass/Vol] 32.3 g/dL [facility] MCV (RBC) [Entitic vol] 87.1 fL [facility] Monocytes (Bld) [#/Vol] 0.8 10*3/uL High 0.0 - 0.7 10*3/uL [facility] Monocytes/100 WBC (Bld) 7.5 % 0.0 - 10.0 % [facility] Neutrophils (Bld) [#/Vol] 8.6 10*3/uL High 1.4 - 6.5 10*3/uL [facility] Neutrophils/100 WBC (Bld) 77.2 % High 37.0 - 75.0 % [facility] Platelet mean volume (Bld) [Entitic vol] 8.5 fL [facility] Platelets (Bld) [#/Vol] 246 10*3/uL 130 - 400 10*3/uL [facility] RBC (Bld) [#/Vol] 4.12 10*6/uL 4.0 - 5.4 10*6/uL [facility] WBC (Bld) [#/Vol] 11.1 10*3/uL High 3.6 - 11.0 10*3/uL [facility] GLUCOSE POST LOADINGon 02-06 Glucose 1 Hr post 50 g glucose PO [Mass/Vol] 70 mg/dL [facility] Comment on above: Testing performed at [place], [place] [address] [facility] GLUCOSE POST LOADING 70 MG/DL Normal 65-140 [facility] Comment on above: Result Comment: Test ing performed at [place] [id number] Performed By: #### C TNG #### Testing performed at [address] [address] Family Medicine Office/Clini c Noteon 01-25-2024 Family [...] Ordered: New Preventive 18 to 39 years [address] 2. Non-smoker (Z78.9: Other specified health status) continue not smoking Ordered: New Preventive 18 to 39 years [address] 3. BMI 27.0-27.9,adult (Z68.27: Body mass index [BMI] 27.0-27.9, adult) Pt is 27 weeks Ordered: New Preventive 18 to 39 years [address] 4. Overweight (BMI 25.0-29.9) (E66.3: Overweight) see above Ordered: New Preventive 18 to 39 years [address] Follow-up No qualifying data available Problem List/Past [...] diphtheria/pertussis , acel/tetanus adult 06/02/2021 Recorded Normal [facility] Comment on above: Result Comment: Elec tronically Signed By: Gina CONNORS, Kalani Padilla\.br\Date and Time Signed: 01/25/24 10:29 EST AFP TETRAon 11-14-2023 AFP MOM 1.01 [facility] AFP VALUE 36.1 [facility] Comment on above: Result Comment: Unit : ng/mL COMMENT: Comment [facility] Comment on above: Result Comment: (NOT E) Lorie Nieto, Ph.D., [facility] Director References: Available Upon Request. Multiples Of Median Cutoffs Abbreviation Definitions For AFP Elevations IDD- Insulin Dep Diabetes [place] 2.5 Black 2.8 OSBR- Open Spina Bifida IDD 2.0 Twins 4.5 Risk DSR Cutoff 1:270 DSR- Down Syndrome Risk T18 Cutoff 1:100 T18- Trisomy 18 For further inquiries contact [employer] at [phone]. This test was developed and its performance characteristics determined by [employer]. It has not been cleared or approved by the Food and Drug Administration. PERFORMED AT [facility] RTP MIGUEL ANGEL MOM 0.69 [facility] MIGUEL ANGEL VALUE 117.78 [facility] Comment on above: Result Comment: Unit : pg/mL DSR (2ND TRIM.) 1 [place] [address] [facility] DSR (BY AGE) 1 [place] 1133 [facility] GEST AGE BASED ON COLLECTION DATE 16.3 [facility] Comment on above: Result Comment: Unit : WEEKS CORRECTED ON 11/13 AT 0106: PREVIOUSLY REPORTED 16.2 UNIT:WEEKS GEST. AGE BASED ON SEBASTIAN [facility] Comment on above: Result Comment: 04/08 CORRECTED ON 11/13 AT 0106: PREVIOUSLY REPORTED SEBASTIAN ULTRASOUND HCG MOM 0.80 [facility] HCG VALUE [address] [facility] Comment on above: Result Comment: Unit : mIU/mL INSULIN DEP DIABETES Comment [facility] Comment on above: Result Comment: Not provided. CORRECTED ON 11/13 AT 0106: PREVIOUSLY REPORTED NO INTERPRETATION Comment [facility] Comment on above: Result Comment: [...] identifies 60% of Trisomy 18 pregnancies. The [place] [employer] recommends amniocentesis be offered to women age 35 and older. Recalculations are not recommended when gestational dating by LMP and ultrasound are within 10 days. MATERNAL AGE AT SEBASTIAN 21.8 [facility] Comment on above: Result Comment: Unit : yr CORRECTED ON 11/13 AT 0106: PREVIOUSLY REPORTED 23 UNIT:YR MULTIPLE GESTATION No [facility] Comment on above: Result Comment: KENNETH ECTED ON 11/13 AT 0106: PREVIOUSLY REPORTED NO OS[place] R[place] 1 [place] [address] [facility] RACE Comment [facility] Comment on above: Result Comment: Not provided. CORRECTED ON 11/13 AT 0106: PREVIOUSLY REPORTED RESULTS Report [facility] T18 (BY AGE) 1:4412 [facility] T18 RISK Not increased [facility] TEST RESULTS Negative [facility] UE3 MOM 1.04 [facility] UE3 VALUE 0.95 [facility] Comment on above: Result Comment: Unit : ng/mL AFP TETRAon 11-11-2023 WEIGHT 141 Normal [facility] [place] Comment on above: Result Comment: Unit : lbs HEMOGLOBIN A1Con 11-11-2023 Glucose [Mass/Vol] 97 mg/dL [facility] Comment on above: Testing performed at [place] [address] HbA1c (Bld) [Mass fraction] 5.0 % 0 - 6 % [facility] Comment on above: NORMAL <5.7% PREDIABETES 5.7-6.4% DIABETES 6.5% OR HIGHER [facility] Glucose [Mass/Vol] 97 mg/dL [facility] Comment on above: Result Comment: Test ing performed at [place] [address] Performed By: #### C TNG #### Testing [place] [address] HbA1c (Bld) [Mass fraction] 5.0 % Normal 0-6 [facility] [place] Comment on above: Result Comment: NORMAL <5.7% PREDIABETES 5.7-6.4% DIABETES 6.5% OR HIGHER Performed By: #### C TNG #### Testing [place] [address] PA IG,CT NG,RFX HPV ASCUon 0 10-20-2023 CHLAMYDIA,NUC. ACID AMP Negative [facility] Comment on above: Result Comment: Refe rence range: Negative PERFORMED AT [facility] DIAGNOSIS: Comment [facility] Comment on above: Result Comment: NEGA TIVE FOR INTRAEPITHELIAL LESION OR MALIGNANCY. PERFORMED AT [facility] GONOCOCCUS,NUC. ACID AMP Negative [facility] Comment on above: Result Comment: Refe rence range: Negative (NOTE) Source.............Cervix;Endocervix Other.............. No. of containers..01 ThinPrep Vial PERFORMED AT [facility] NOTE: Comment [facility] Comment on above: Result Comment: (NOT E) The Pap smear is a screening test designed to aid in the detection of premalignant and malignant conditions of the uterine cervix. It is not a diagnostic procedure and should not be used as the sole means of detecting cervical cancer. Both false-positive and false-negative reports do occur. PERFORMED AT [facility] PERFORMED BY: Comment [facility] Comment on above: Result Comment: Linda Traore, Metal Wire Technician (ASCP) PERFORMED AT [facility] SPECIMEN ADEQUACY: Comment [facility] Comment on above: Result Comment: (NOT E) Satisfactory for evaluation. Endocervical and/or squamous metaplastic cells (endocervical component) are present. PERFORMED AT [facility] TEST METHODOLOGY: Comment [facility] Comment on above: Result Comment: (NOT E) This liquid based ThinPrep(R) pap test was screened with the use of an image guided system. PERFORMED AT [facility] RPRon 09-27-2023 Reagin Ab RPR Ql (S) Non-Reactive Normal NONREACTIVE A [facility] Comment on above: Result Comment: Test ing performed at [place] [address] Performed By: #### A CBC, ARPR, RUBL, GHIV #### [place] [address] #### LVZG #### Testing performed at [facility] [address] [place] [address] [place] [address] RUBELLA SCREENon 09-27-2023 RUBELLA SCREEN Negative Abnormal POSITIVE [facility] Comment on above: Result Comment: Test ing performed at [place] [address] Performed By: #### A CBC, ARPR, RUBL, GHIV #### [place] [address] #### LVZG #### Testing performed at [facility] [address] [place] [address] [place] [address] US 1st Trimesteron 09-27-2023 US 1st Trimester [...] corresponding gestational age +/- 1 week are: [place] Rump Length: 2.8 cm Composite Ultrasound Age: [...] Size = Dates Uterus Position Anteverted Normal [facility] ABO/Rhon 09-26-2023 ABO/Rh Positive Invalid Interpretation Code [facility] Comment on above: Performed By: #### 2 [id number] #### [facility] [address] [place] [address] BLOOD BANKOrdered By: Cherelle Flaherty on 09-26-2023 ABO/Rh Interp Positive Invalid Interpretation Code [facility] Subsection BhG Quanton 09-26-2023 HCG.beta subunit Qn [id number] m[IU]/mL High 1-3 [facility] Comment on above: Result Comment: 'F N ON < 1 - 3' ' 0.2 - 1 WEEK = 5 TO 50' ' 1 - 2 WEEKS = 50 - 500' ' 2 - 3 WEEKS = 100 - 5000' ' 3 - 4 WEEKS = 500 - 99142' ' 4 - 5 WEEKS = 1000 - 39858' ' 5 - 6 WEEKS = 68275 - 807261' ' 6 - 8 WEEKS = 25284 - 321264' ' 8 - 12 WEEKS = 31936 - 215354' Performed By: #### 2 [id number] #### [facility] [address] [place] [address] CBC w/ Auto Diffon 4 Basophils/100 WBC (Bld) 0.6 % Normal 0.0-2.0 [facility] Comment on above: Performed By: #### 2 [id number] #### [facility] [address] [place] [address] Basophils/Leukocytes Auto (Bld) [Pure # fraction] 0.1 E9/L Normal 0.0-0.2 [facility] Comment on above: Performed By: #### 2 [id number] #### [facility] [address] [place] [address] Eosinophils (Bld) [#/Vol] 0.1 E9/L Normal 0.0-0.5 [facility] Comment on above: Performed By: #### 2 [id number] #### [facility] [address] [place] [address] Eosinophils/100 WBC (Bld) 1.0 % Normal 0.0-8.0 [facility] Comment on above: Performed By: #### 2 [id number] #### [facility] [address] [place] [address] Erythrocyte distribution width (RBC) [Ratio] 13.7 % Normal 10.9-14.2 [facility] Comment on above: Performed By: #### 2 [id number] #### [facility] [address] [place] [address] Hematocrit (Bld) [Volume fraction] 36.6 % Normal 34.0-46.0 [facility] Comment on above: Performed By: #### 2 [id number] #### [facility] [address] [place] [address] Hemoglobin (Bld) [Mass/Vol] 12.6 g/dL Normal 12.0-16.0 [facility] Comment on above: Performed By: #### 2 [id number] #### [facility] [address] [place] [address] Lymphocytes (Bld) [#/Vol] 1.1 E9/L Normal 1.0-4.0 [facility] Comment on above: Performed By: #### 2 [id number] #### [facility] [address] [place] [address] Lymphocytes/100 WBC (Bld) 12.2 % Low 14.0-50.0 [facility] Comment on above: Performed By: #### 2 475492 #### [facility] [address] [place] [address] MCH (RBC) [Entitic mass] 29.3 pg Normal 27.0-34.0 [facility] Comment on above: Performed By: #### 2 618379 #### [facility] [address] [place] [address] MCHC (RBC) [Mass/Vol] 34.4 g/dL Normal 31.4-36.0 [facility] Comment on above: Performed By: #### 2 114444 #### [facility] [address] [place] [address] MCV (RBC) [Entitic vol] 85.1 fL Normal 80.0-100.0 [facility] Comment on above: Performed By: #### 2 880253 #### [facility] [address] [place] [address] Monocytes (Bld) [#/Vol] 0.8 E9/L Normal 0.2-1.0 [facility] Comment on above: Performed By: #### 2 068609 #### [facility] [address] [place] [address] Neutrophils (Bld) [#/Vol] 7.1 E9/L Normal 2.0-7.5 [facility] Comment on above: Performed By: #### 2 [id number] #### [facility] [address] [place] [address] Neutrophils/100 WBC (Bld) 77.8 % High 36.0-75.0 [facility] Comment on above: Performed By: #### 2 [id number] #### [facility] [address] [place] [address] Platelet 265.0 E9/L Normal 150.0-500.0 [facility] Comment on above: Performed By: #### 2 579576 #### [facility] [address] [place] [address] Platelet mean volume (Bld) [Entitic vol] 8.0 fL Normal 6.4-10.8 [facility] Comment on above: Performed By: #### 2 056291 #### [facility] [address] [place] [address] RBC (Bld) [#/Vol] 4.3 E12/L Normal 4.3-5.9 [facility] Comment on above: Performed By: #### 2 834647 #### [facility] [address] [place] [address] WBC corrected for nucl RBC Auto (Bld) [#/Vol] 9.1 E9/L Normal 4.0-11.0 [facility] Comment on above: Performed By: #### 2 301307 #### [facility] [address] [place] [address] CHEMISTRYOrdered By: SYSTEM SYSTEM on 09-26-2023 Albumin [...] mg/dL Re misol Chem HCG.beta subunit Qn 162429 m[IU]/mL High 1 - 3 mIU/m L [facility] Comment on above: Result Comment: 'F N ON < 1 - 3' ' 0.2 - 1 WEEK = 5 TO 50' ' 1 - 2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 [facility] Comment on above: Performed By: #### 4 [id number] #### [facility] [address] [place] [address] Hemoglobin Auto test strip (U) [Mass/Vol] Negative Normal Negative [facility] Comment on above: Performed By: #### 4 [id number] #### [facility] [address] [place] [address] Ketones Auto test strip Ql (U) Negative Normal Negative [facility] Comment on above: Performed By: #### 4 [id number] #### [facility] [address] [place] [address] Leukocyte esterase Auto test strip Ql (U) Negative Normal Negative [facility] Comment on above: Performed By: #### 4 [id number] #### [facility] [address] [place] [id number] Nitrite Auto test strip Ql (U) Negative Normal Negative [facility] Comment on above: Performed By: #### 4 [id number] #### [facility] [address] [place] [id number] pH (U) 6.5 [pH] Invalid Interpretation Code 5.0-9.0 [facility] Comment on above: Performed By: #### 4 [id number] #### [facility] [address] [place] [id number] Protein Ql (U) Negative Normal Negative [facility] Comment on above: Performed By: #### 4 [id number] #### [facility] [address] [place] [id number] Specific gravity (U) [Rel density] 1.017 Invalid Interpretation Code 1.005-1.030 [facility] Comment on above: Performed By: #### 4 [id number] #### [facility] [address] [place] [id number] Urobilinogen (U) [Mass/Vol] Negative Normal Negative [facility] Comment on above: Performed By: #### 4 [id number] #### [facility] [address] [place], [place] [id number] Type of Urine collection method Clean Catch Normal [facility] Comment on above: Performed By: #### 4 [id number] #### [facility] [address] [place] [id number] URINALYSISOrdered By: SYSTEM SYSTEM on 09-16-2023 Bilirubin Ql (U) Negative Normal Negativemg/dL [facility] UA Auto SS Clarity (U) Clear (09/16/23 8:46 AM) Normal Clear [facility] UA Auto SS Color (U) Light-Yellow 1 (09/16/23 8:46 AM) Normal Yellow [facility] UA Auto SS Comment on above: Interpretive Data: M icroscopic readings are only performed on those samples that meet specific criteria set forth by [facility]. Glucose Ql (U) Negative Normal Negativemg/dL [facility] UA Auto SS Hemoglobin Auto test strip (U) [Mass/Vol] Negative Normal Negativemg/dL FT UA Aut o SS Ketones Auto test strip Ql (U) Negative Normal Negativemg/dL [facility] UA Auto SS Leukocyte esterase Auto test strip Ql (U) Negative Normal NegativeLeu/uL [facility] UA Auto SS Nitrite Auto test strip Ql (U) Negative Normal Negativemg/dL [facility] UA Auto SS pH (U) 6.5 *NA* (09/16/23 8:46 AM) Invalid Interpretation Code 5.0 - 9.0 [facility] UA Auto SS Protein Ql (U) Negative Normal Negativemg/dL [facility] UA Auto SS Specific gravity (U) [Rel density] 1.017 *NA* (09/16/23 8:46 AM) Invalid Interpretation Code 1.005 - 1.030 [facility] UA Auto SS Urobilinogen (U) [Mass/Vol] Negative Normal Negativemg/dL [facility] UA Auto SS URINALYSISOrdered By: Dulce Lockett on 09-16-2023 UA Spec Desc Clean Catch (09/16/23 8:46 AM) Normal [facility] UA Auto SS Ambulatory Visit Summaryon 0 [...] When: In 3 months Where: [address] [place] [phone] Medications What How Much When Instructions New aripiprazole (aripiprazole 5 mg Tab) 1 Tablets By Mouth Every day Refills: 2 Pickup at [id number] Unchanged lactobacillus acidophilus (Acidophilus Probiotic Blend) Pharm[id number]: [address] [place], [place] [id number] [phone] Allergies No Known Medication Allergies Problems Ongoing - Any problem that you are currently receiving treatment for. BMI 23.0-23.9, adult Patient Survey You may receive a survey via text or e-mail asking about your office visit. Please share your experience with us by completing your survey. We appreciate your feedback and thank you for choosing us for your care. Normal [facility] ED Note-Physicianon 08-31-19 ED Note-Physician [id number] #1.00TIFF Normal [facility] CBC with Diffon 08-30-2023 Abs. Basophil 0.04 k/uL Normal 0.00-0.20 [facility] Comment on above: Performed By: #### C DP #### [facility] [address] [place] [address] Loan Manager: Berta Peña MD Abs.Imm.Granulocyte 0.02 k/uL Normal 0.00-0.30 [facility] Comment on above: Performed By: #### C DP #### [facility] [address] [place] [phone] Loan Manager: Berta Peña MD Abs.Neutrophil (Seg) 4.62 k/uL Normal 2.5-7.0 [facility] Comment on above: Performed By: #### C DP #### [facility] [address] [place] [address] Loan Manager: Berta Peña MD Basophils/100 WBC (Bld) 1 % Normal 0-2 [facility] Comment on above: Performed By: #### C DP #### [facility] [address] [place] [address] Loan Manager: Berta Peña MD Eosinophils (Bld) [#/Vol] 0.09 10*3/uL Normal 0.00-0.40 [facility] Comment on above: Performed By: #### C DP #### [facility] [address] [place], [place] [phone] Loan Manager: Berta Peña MD Eosinophils/100 WBC (Bld) 1 % Normal 0-5 [facility] Comment on above: Performed By: #### C DP #### [facility] [address] [place] [phone] Loan Manager: Berta Peña MD Erythrocyte distribution width (RBC) [Ratio] 12.8 % Normal 12.1-15.2 [facility] Comment on above: Performed By: #### C DP #### [facility] [address] [place] [address] Loan Manager: Berta Peña MD Hematocrit (Bld) [Volume fraction] 38.0 % Normal 36.0-46.0 [facility] Comment on above: Performed By: #### C DP #### [facility] [address] [place], [place] [phone] Loan Manager: Berta Peña MD Hemoglobin (Bld) [Mass/Vol] 12.5 g/dL Normal 12.0-16.0 [facility] Comment on above: Performed By: #### C DP #### [facility] [address] [place], [place] [phone] Loan Manager: Berta Peña MD Immature granulocytes/100 WBC (Bld) 0 % Normal 0-5 [facility] Comment on above: Performed By: #### C DP #### [facility] [address] [place] [address] Loan Manager: Berta Peña MD Lymphocytes (Bld) [#/Vol] 1.87 10*3/uL Normal 1.00-4.80 [facility] Comment on above: Performed By: #### C DP #### [facility] [address] [place] [address] Loan Manager: Berta Peña MD Lymphocytes/100 WBC (Bld) 26 % Normal 15-40 [facility] Comment on above: Performed By: #### C DP #### [facility] [address] [place] [address] Loan Manager: Berta Peña MD MCH (RBC) [Entitic mass] 28.2 pg Normal 26.0-34.0 [facility] Comment on above: Performed By: #### C DP #### [facility] [address] [place] [address] Loan Manager: Berta Peña MD MCHC (RBC) [Mass/Vol] 32.9 g/dL Normal 31.0-37.0 [facility] Comment on above: Performed By: #### C DP #### [facility] [address] [place] [address] Loan Manager: Berta Peña MD MCV (RBC) [Entitic vol] 85.8 fL Normal 80.0-100.0 [facility] Comment on above: Performed By: #### C DP #### [facility] [address] [place] [address] Loan Manager: Berta Peña MD Monocytes (Bld) [#/Vol] 0.55 10*3/uL Normal 0.00-1.00 [facility] Comment on above: Performed By: #### C DP #### [facility] [address] [place] [address] Loan Manager: Berta Peña MD Monocytes/100 WBC (Bld) 8 % Normal 4-8 [facility] Comment on above: Performed By: #### C DP #### [facility] [address] [place] [address] Loan Manager: Berta Peña MD Neutrophil (Seg) 64 % Normal 47-75 [facility] Comment on above: Performed By: #### C DP #### [facility] [address] [place], [place] [phone] Loan Manager: Berta Peña MD Platelet mean volume (Bld) [Entitic vol] 9.7 fL Normal 6.0-12.0 [facility] Comment on above: Performed By: #### C DP #### [facility] [address] [place], [place] [phone] Loan Manager: Berta Peña MD Platelets (Bld) [#/Vol] 265 10*3/uL Normal 140-450 [facility] Comment on above: Performed By: #### C DP #### [facility] [address] [place], [place] [phone] Loan Manager: Berta Peña MD RBC (Bld) [#/Vol] 4.43 10*6/uL Normal 4.00-5.20 [facility] Comment on above: Performed By: #### C DP #### [facility] [address] [place], [place] [phone] Loan Manager: Berta Peña MD WBC (Bld) [#/Vol] 7.2 10*3/uL Normal 4.5-13.5 [facility] Comment on above: Performed By: #### C DP #### [facility] [address] [place], [place] [phone] Loan Manager: Berta Peña MD HCG, Quanton 08-30-2023 HCG, Quant 08583.0 mIU/mL High <5 [facility] Comment on above: Result Comment: Non-preg premeno <=5 Postmeno <=8 Male <=3 If HCG results do not concur with clinical observations, additional testing to confirm results is recommended. Performed By: #### B HCG #### [facility] [address] [place], [place] [phone] Loan Manager: Berta Peña MD Type + Screenon 08-30-2023 Type + Screen Sample Expiration 09/02/2023,0316 ABO/Rh(D) O POSITIVE Antibody Screen NEGATIVE Normal [facility] Comment on above: Performed By: #### T YS #### [facility] [address] [place] [address] Loan Manager: Berta Peña MD Family Medicine Office/Clini [...] Co-Signed: 08/13/23 17:18 EDT [employer] 08-16-2023 Forms [id number]# 1.00TIFF [facility] Ambulatory Visit Summaryon [...] EDT With: Pari Underwood PA-C Where: [facility] [place] Normal [facility] Patient Educationon 08-13-19 24 Patient Education [...] pray, or go to a place of jainism. ? Do some deep breathing. To do [...] or salt (sodium). General instructions ? Take eyas-ucr-zviqhxs and prescription medicines only as told by [...] ica.ne (more content not included)... Normal [facility] CHLAMYDIA/GCon 08-04-2023 CHLAMYDIA TRACH Not detected Normal NOT DETECTED [facility] [place] Comment on above: Performed By: #### C TNG #### Testing [place] [address] N.GONORRHOEAE Not detected Normal NOT DETECTED [facility] Comment on above: Result Comment: TEST ING PERFORMED BY PCR Testing performed at [place] [address] Performed By: #### C TNG #### Testing [place] [address] CHLAMYDIA/GONOCOCCUS, NAAon 08-04-2023 CHLAMYDIA TRACHOMATIS Not detected NOT DETECTED [facility] NEISSERIA GONORRHOEAE Not detected NOT DETECTED [facility] Comment on above: TESTING PERFORMED BY PCR Testing performed at [address] TRICH VAGon 08-04-2023 TRICH VAG Not detected Normal NOT DETECTED [facility] Comment on above: Result Comment: TEST ING PERFORMED BY PCR Testing performed at [place] [address] Performed By: #### A TV #### Testing [place] [address] TRICHOMONAS VAGINALIS, NAAon 08-04-2023 T. vaginalis rRNA TELMA+probe Ql (Unsp spec) Not detected NOT DETECTED [facility] Comment on above: TESTING PERFORMED BY PCR Testing performed at [address] CHLAMYDIA/GCon 04-16-2023 CHLAMYDIA TRACH Not detected Normal NOT DETECTED [facility] Comment on above: Performed By: #### C TNG #### Testing [place] [address] N.GONORRHOEAE Not detected Normal NOT DETECTED [facility] Comment on above: Result Comment: TEST ING PERFORMED BY PCR Testing performed at [place] [address] Performed By: #### C TNG #### Testing [place] [address] CHLAMYDIA/GONOCOCCUS, NAAon 04-16-2023 CHLAMYDIA TRACHOMATIS Not detected NOT DETECTED [facility] NEISSERIA GONORRHOEAE Not detected NOT DETECTED [facility] Comment on above: TESTING PERFORMED BY PCR Testing performed at [address] TRICH VAGon 04-16-2023 TRICH VAG Not detected Normal NOT DETECTED [facility] Comment on above: Result Comment: TEST ING PERFORMED BY PCR Testing performed at [place] [address] Performed By: #### C TNG #### [place] [address] TRICHOMONAS VAGINALIS, NAAon 04-16-2023 T. vaginalis rRNA TELMA+probe Ql (Unsp spec) Not detected NOT DETECTED [facility] Comment on above: TESTING PERFORMED BY PCR Testing performed at [address] XR RIBS WITH CHEST, RIGHTon 10-24-2022 [...] fractures identified. IMPRESSION: No acute findings. Normal [facility] CHLAMYDIA/GCon 10-23-2022 CHLAMYDIA TRACH Not detected Normal NOT DETECTED [facility] Comment on above: Performed By: #### C TNG #### Testing [place] [address] N.GONORRHOEAE Not detected Normal NOT DETECTED [facility] Comment on above: Result Comment: TEST ING PERFORMED BY PCR Testing performed at [place] [address] Performed By: #### C TNG #### Testing [place] [address] CHLAMYDIA/GONOCOCCUS, NAAon 10-23-2022 CHLAMYDIA TRACHOMATIS Not detected NOT DETECTED [facility] NEISSERIA GONORRHOEAE Not detected NOT DETECTED [facility] Comment on above: TESTING PERFORMED BY PCR Testing performed at [address] TRICH VAGon 10-23-2022 TRICH VAG Not detected Normal NOT DETECTED [facility] Comment on above: Result Comment: TEST ING PERFORMED BY PCR Testing performed at [place] [address] Performed By: #### A TV #### [place] [address] TRICHOMONAS VAGINALIS, NAAon 10-23-2022 T. vaginalis rRNA TELMA+probe Ql (Unsp spec) Not detected NOT DETECTED [facility] Comment on above: TESTING PERFORMED BY PCR Testing performed at [address] CBC, EDIF, PLATELETon 2021 ABSOLUTE BASOPHIL COUNT 0.0 10*3/uL 0.0 - 0.2 10*3/uL [facility] Comment on above: Testing performed at [place] [address] Basophils/100 WBC (Bld) 0.5 % 0.0 - 2.0 % [facility] Differential cell count method Nom (Bld) AUTO DIFF % [facility] Eosinophils (Bld) [#/Vol] 0.20 10*3/uL 0.0 - 0.7 10*3/uL [facility] Eosinophils/100 WBC (Bld) 1.9 % 0.0 - 11.0 % [facility] Erythrocyte distribution width (RBC) [Ratio] 13.1 % 11.5 - 14.5 % [facility] Hematocrit (Bld) [Volume fraction] 32.9 % Low 36.0 - 48.0 % [facility] Hemoglobin (Bld) [Mass/Vol] 11.5 g/dL Low [facility] Interpretation and review of laboratory results Abnormal [facility] Lymphocytes (Bld) [#/Vol] 1.50 10*3/uL 1.2 - 3.4 10*3/uL [facility] Lymphocytes/100 WBC (Bld) 17.3 % Low 20.0 - 55.0 % [facility] MCH (RBC) [Entitic mass] 31.1 pg 26.0 - 35.0 PG [facility] MCHC (RBC) [Mass/Vol] 35.0 g/dL [facility] MCV (RBC) [Entitic vol] 89.0 fL [facility] Monocytes (Bld) [#/Vol] 0.8 10*3/uL High 0.0 - 0.7 10*3/uL [facility] Monocytes/100 WBC (Bld) 8.6 % 0.0 - 10.0 % [facility] Neutrophils (Bld) [#/Vol] 6.3 10*3/uL 1.4 - 6.5 10*3/uL [facility] Neutrophils/100 WBC (Bld) 71.7 % 37.0 - 75.0 % [facility] Platelet mean volume (Bld) [Entitic vol] 8.4 fL [facility] Platelets (Bld) [#/Vol] 226 10*3/uL 130.0 - 400.0 10*3/uL [facility] RBC (Bld) [#/Vol] 3.69 10*6/uL Low 4.0 - 5.4 10*6/uL [facility] WBC (Bld) [#/Vol] 8.8 10*3/uL 3.6 - 11.0 10*3/uL [facility] GLUCOSE POST LOADINGon 06-02 Glucose 1 Hr post 50 g glucose PO [Mass/Vol] 93 mg/dL [facility] Comment on above: Testing performed at [address] COLPOSCOPYon 03-13-2021 Doyle Amaro MD 03/13/2021 [...] as needed for mild to moderate pain. [facility] Narrative [Interpretat ion] Study observation general USon 02-06-2021 : 1. Single of 11 weeks and 5 days. 2. heart rate of 168 bpm. 3. US SEBASTIAN 08/23/2021, which is inconsistent with SEBASTIAN by LMP and should be changed. [facility] REFERRING PHYSICIAN: Dr. Amaro TECHNOLOGIST: Ashley Acosta PROCEDURE DATE : 02/06/2021 INDICATIONS: Early gestational, dating LMP 11/09/2020, SEBASTIAN 08/16/2021 PROCEDURE DETAILS A single was noted within the uterus. heart rate of 168 bpm. The CRL measures 5.03 cm , 11 weeks 5 days. FINAL [facility] Radiology Study observation (narrative) [facility] ABO/RH(D) TYPINGon ABO and Rh group Nom (Bld ) Positive [facility] ABO and Rh group Nom (Bld ) Testing performed at [place], [place] [address] [facility] ANTIBODY SCREENon 01-14-2021 Blood group antibody screen Ql Negative [facility] EXPIRATION DATE 01/17/2021,2359 [facility] EXPIRATION DATE Testing performed at [place], [place] [address] [facility] CBC, EDIF, PLATELETon 2020 ABSOLUTE BASOPHIL COUNT 0.0 10*3/uL 0.0 - 0.2 10*3/uL [facility] Comment on above: Testing performed at [place], [place] [address] Basophils/100 WBC (Bld) 0.6 % 0.0 - 2.0 % [facility] Differential cell count method Nom (Bld) AUTO DIFF % [facility] Eosinophils (Bld) [#/Vol] 0.10 10*3/uL 0.0 - 0.7 10*3/uL [facility] Eosinophils/100 WBC (Bld) 1.3 % 0.0 - 11.0 % [facility] Erythrocyte distribution width (RBC) [Ratio] 13.5 % 11.5 - 14.5 % [facility] Hematocrit (Bld) [Volume fraction] 35.9 % Low 36.0 - 48.0 % [facility] Hemoglobin (Bld) [Mass/Vol] 12.2 g/dL [facility] Interpretation and review of laboratory results Abnormal [facility] Lymphocytes (Bld) [#/Vol] 2.40 10*3/uL 1.2 - 3.4 10*3/uL [facility] Lymphocytes/100 WBC (Bld) 34.3 % 20.0 - 55.0 % [facility] MCH (RBC) [Entitic mass] 28.7 pg 26.0 - 35.0 PG [facility] MCHC (RBC) [Mass/Vol] 33.9 g/dL [facility] MCV (RBC) [Entitic vol] 84.7 fL [facility] Monocytes (Bld) [#/Vol] 0.7 10*3/uL 0.0 - 0.7 10*3/uL [facility] Monocytes/100 WBC (Bld) 9.7 % 0.0 - 10.0 % [facility] Neutrophils (Bld) [#/Vol] 3.8 10*3/uL 1.4 - 6.5 10*3/uL [facility] Neutrophils/100 WBC (Bld) 54.1 % 37.0 - 75.0 % [facility] Platelet mean volume (Bld) [Entitic vol] 9.3 fL [facility] Platelets (Bld) [#/Vol] 289 10*3/uL 130.0 - 400.0 10*3/uL [facility] RBC (Bld) [#/Vol] 4.23 10*6/uL 4.0 - 5.4 10*6/uL [facility] WBC (Bld) [#/Vol] 7.1 10*3/uL 3.6 - 11.0 10*3/uL [facility] HIV 1+2 Ab+HIV1 p24 Ag IA Ql on 01-14-2021 HIV 1+2 Ab IA Ql Non-Reactive NONREACTIVE [facility] Comment on above: Testing performed at [address] RAPID TOX SCREEN WITH RELEX TO DRUGMCon 01-14-2021 Amphetamine (U) [Mass/Vol] Negative NEGATIVE NG/ML [facility] Comment on above: <500 ng/ml CUTOFF Barbiturates Screen Ql (U) Negative NEGATIVE NG/ML [facility] Comment on above: <200 ng/ml CUTOFF Benzodiazepines Ql (U) Negative NEGATIVE NG/ML [facility] Comment on above: <150 ng/ml CUTOFF Benzoylecgonine Ql (U) Negative NEGATIVE NG/ML [facility] Comment on above: <150 ng/ml CUTOFF Buprenorphine Ql (U) Negative NEGATIVE NG/ML [facility] Comment on above: <10 ng/ml CUTOFF Testing performed at [place] [address] Cannabinoids Screen Ql (U) Positive Abnormal NEGATIVE NG/ML [facility] Comment on above: <50 ng/ml CUTOFF *Unconfirmed Screening Result* Unconfirmed screening results are to be used only for medical treatment purposes. Interpretation and review of laboratory results Abnormal [facility] Methadone Screen Ql (U) Negative NEGATIVE NG/ML [facility] Comment on above: <200 ng/ml CUTOFF Methamphetamine (U) [Mass/Vol] Negative NEGATIVE NG/ML [facility] Comment on above: <500 ng/ml CUTOFF Opiates Screen Ql (U) Negative NEGATIVE NG/ML [facility] Comment on above: <100 ng/ml CUTOFF oxyCODONE Ql (U) Negative NEGATIVE NG/ML [facility] Comment on above: <100 ng/ml CUTOFF Phencyclidine Screen method >25 ng/mL Ql (U) Negative NEGATIVE NG/ML [facility] Comment on above: <25 ng/ml CUTOFF Propoxyphene+Norpropo xyphene Screen Ql (U) Negative NEGATIVE NG/ML [facility] Comment on above: <300 ng/ml CUTOFF Tricyclic antidepressants Screen Ql (U) Negative NEGATIVE NG/ML [facility] Comment on above: <300 ng/ml CUTOFF [facility] REQUEST FOR MISC LAB SENDOUT on 01-14-2021 Miscellaneous Test 1 SPECIMEN SENT TO REFERENCE LAB FOR TESTING [facility] Comment on above: [id number] CANNABINOID Testing performed at [address] Chlamydia/GC,DNA Ampon 08-09 Chlamydia Probe Negative Normal [facility] Comment on above: Result Comment: CHLA MYDIA [...] target. Performed By: #### S WCGP #### [facility] [address] [place] [phone] Loan Manager: Geovani Cordon MD Gonorrhea Probe Negative [facility] Comment on above: [...] target. Performed By: #### S WCGP #### [facility] [email or web address] [address] [place] [phone] Loan Manager: Geovani Cordon MD Herpes 1+2 Molecularon 08-09 HSV-1, NAAT Negative [facility] Comment on above: Result Comment: HSV- 1 DNA not detected by nucleic acid amplification Performed By: #### H BS, HSVDNA, TREP, AHCV, HIVCMB #### [employer] [address] [place] [phone] Loan Manager: Geovani Cordon MD HSV-2, NAAT Negative [facility] Comment on above: Result Comment: HSV- 2 DNA not detected by nucleic acid amplification Performed By: #### H BS, HSVDNA, TREP, AHCV, HIVCMB #### [facility] [address] [place] [phone] Loan Manager: Geovani Cordon MD Vaginitis DNA Probeon [...] of vaginitis/vaginosis. Report Status FINAL 08/09/2020 Normal [facility] Comment on above: Performed By: #### V AGDNA #### [address] [phone] Loan Manager: Geovani Cordon MD [facility] [address] [place] [address] [place] [address] Loan Manager: Berta Peña MD HIV Ag/Abon 08-08-2020 HIV Ag/Ab Non-Reactive Normal [facility] Comment on above: Result Comment: No l aboratory evidence of HIV infection. If acute HIV infection is suspected, consider testing for HIV-1 RNA. Performed By: #### H BS, HSVDNA, TREP, AHCV, HIVCMB #### [address] [phone] Loan Manager: Geovani Cordon MD Hep B Surf Agon 08-08-2020 Hep B Surf Ag Non-Reactive Normal [facility] Comment on above: Performed By: #### H BS, HSVDNA, TREP, AHCV, HIVCMB #### [facility] [email or web address] [facility] [place], [place] [phone] Loan Manager: Geovani Cordon MD Hep C Abon 08-08-2020 Hep C Ab Non-Reactive Normal [facility] Comment on [...] H BS, HSVDNA, TREP, AHCV, HIVCMB #### [facility] [email or web address] [facility] [place] [address] Loan Manager: Geovani Cordon MD Herpes 1+2 Molecularon 08-08 Source: NOT REPORTED Normal [facility] Comment on above: Performed By: #### H BS, HSVDNA, TREP, AHCV, HIVCMB #### [facility] [email or web address] [facility] [place] [address] Loan Manager: Geovani Cordon MD T.pallidum Ab Screenon 08-08 T.pallidum Ab Screen Non-Reactive Normal [facility] Comment on above: Result Comment: T. pallidum antibodies are not detected. There is no serological evidence of infection with T. pallidum (early primary syphilis cannot be excluded). Retest in 2-4 weeks if syphilis is clinically suspect. Performed By: #### H BS, HSVDNA, TREP, AHCV, HIVCMB #### [facility] [email or web address] [address] [place] [address] Loan Manager: Geovani Cordon MD CBC W/DIFFon 09-29-2019 ABS BASOPHILS 0.1 10*3/uL Normal 0.0-0.2 [facility] Comment on above: Order Comment: No: D o not add to previous draw Performed By: #### 5 0103 #### [facility] [address] ABS IMM GRANS 0.0 10*3/uL Normal 0.0-0.2 [facility] Comment on above: Order Comment: No: D o not add to previous draw Performed By: #### 5 3 #### [facility] [address] [place] [address], [facility] ABS NEUTROPHILS 2.1 10*3/uL Normal 1.6-7.6 [facility] Comment on above: Order Comment: No: D o not add to previous draw Performed By: #### 5 3 #### [facility] [address] [place] [address], [facility] Basophils/100 WBC (Bld) 1.2 % High 0.0-1.0 [facility] Comment on above: Order Comment: No: D o not add to previous draw Performed By: #### 5 0103 #### [facility] [address] [place] [address], [facility] Eosinophils (Bld) [#/Vol] 0.3 10*3/uL Normal 0.0-0.5 [facility] Comment on above: Order Comment: No: D o not add to previous draw Performed By: #### 5 0103 #### [facility] [address] [place] [address], [facility] Eosinophils/100 WBC (Bld) 4.5 % Normal 0.0-6.0 [facility] Comment on above: Order Comment: No: D o not add to previous draw Performed By: #### 5 0103 #### [facility] [address] [place] [address], [facility] Erythrocyte distribution width (RBC) [Ratio] 14.0 % Normal 11.5-15.0 [facility] Comment on above: Order Comment: No: D o not add to previous draw Performed By: #### 5 3 #### [facility] [address] [place] [address], [facility] Hematocrit (Bld) [Volume fraction] 39.7 % Normal 36.0-45.0 [facility] Comment on above: Order Comment: No: D o not add to previous draw Performed By: #### 5 0103 #### [facility] [address] [place] [address], [facility] Hemoglobin (Bld) [Mass/Vol] 12.9 g/dL Normal 12.0-15.0 [facility] Comment on above: Order Comment: No: D o not add to previous draw Performed By: #### 5 0103 #### [facility] [address] [place] [address], [facility] IMMATURE GRANS 0.3 % Normal 0.0-1.0 [facility] Comment on above: Order Comment: No: D o not add to previous draw Performed By: #### 5 3 #### [facility] [address] [place] [id number], [facility] Lymphocytes (Bld) [#/Vol] 3.1 10*3/uL Normal 1.2-4.0 [facility] Comment on above: Order Comment: No: D o not add to previous draw Performed By: #### 5 102 #### [facility] [address] [place] [address], [facility] Lymphocytes/100 WBC (Bld) 51.7 % High 20.0-45.0 [facility] Comment on above: Order Comment: No: D o not add to previous draw Performed By: #### 5 3 #### [facility] [address] [place] [address], [facility] MCH (RBC) [Entitic mass] 27.7 pg Normal 27.0-33.0 [facility] Comment on above: Order Comment: No: D o not add to previous draw Performed By: #### 5 102 #### [facility] [address] [place] [id number], [facility] MCHC (RBC) [Mass/Vol] 32.5 g/dL Normal 32.0-35.0 [facility] Comment on above: Order Comment: No: D o not add to previous draw Performed By: #### 5 0103 #### [facility] [address] [place] [address], [facility] MCV (RBC) [Entitic vol] 85.2 fL Normal 82.0-98.0 [facility] Comment on above: Order Comment: No: D o not add to previous draw Performed By: #### 5 3 #### [facility] [address] [place] [address], [facility] Monocytes (Bld) [#/Vol] 0.4 10*3/uL Normal 0.1-1.0 [facility] Comment on above: Order Comment: No: D o not add to previous draw Performed By: #### 5 0103 #### [facility] [address] [place] [address], [facility] MONOS 7.2 % Normal 5.0-12.0 [facility] Comment on above: Order Comment: No: D o not add to previous draw Performed By: #### 5 0103 #### [facility] [address] [place] [address], [facility] Neutrophils/100 WBC (Bld) 35.1 % Low 40.0-72.0 [facility] Comment on above: Order Comment: No: D o not add to previous draw Performed By: #### 5 0103 #### [facility] [address] [place] [id number], [facility] Nucleated RBC/100 WBC (Bld) [Ratio] 0 % Normal 0-0 [facility] Comment on above: Order Comment: No: D o not add to previous draw Performed By: #### 5 0103 #### [facility] [address] [facility] [place] [address], [facility] PLAT CNT 237 10*3/uL Normal 150-400 [facility] Comment on above: Order Comment: No: D o not add to previous draw Performed By: #### 5 0103 #### [facility] [address] [facility] [place] [address], [facility] RBC (Bld) [#/Vol] 4.66 10*6/uL Normal 3.80-5.00 [facility] Comment on above: Order Comment: No: D o not add to previous draw Performed By: #### 5 3 #### [facility] [address] [place] [address], [facility] WBC (Bld) [#/Vol] 5.96 10*3/uL Normal 4.00-10.60 [facility] Comment on above: Order Comment: No: D o not add to previous draw Performed By: #### 5 0103 #### [facility] [address] [place] [address], [facility] COMP METABOLIC PANELon 09-28 Albumin [Mass/Vol] 4.5 g/dL Normal 3.5-5.7 [facility] Comment on above: Order Comment: No: D o not add to previous draw Performed By: #### 4 4396, 12109, 93506, 40723, 43781, 09531 #### [facility] [address] [place] [id number], [facility] ALKALINE PHOSPH 59 IU/L Normal 40-460 [facility] Comment on above: Order Comment: No: D o not add to previous draw Performed By: #### 4 4396, 85569, 12329, 88171, 04072, 43519 #### [facility] [address] [place] [address], [facility] ALT [Catalytic activity/Vol] 10 U/L Normal 7-52 [facility] Comment on above: Order Comment: No: D o not add to previous draw Performed By: #### 4 4396, 28046, 68503, 31143, 97557, 20735 #### [facility] [address] [place] [address], [facility] AST [Catalytic activity/Vol] 17 U/L Normal 13-39 [facility] Comment on above: Order Comment: No: D o not add to previous draw Performed By: #### 4 4396, 51042, 28044, 22966, 36045, 94846 #### [facility] [address] [place] [address], [place] Bilirubin [Mass/Vol] 0.4 mg/dL Normal 0.3-1.0 [facility] Comment on above: Order Comment: No: D o not add to previous draw Performed By: #### 4 4396, 29991, 32000, 74474, 47602, 71631 #### [facility] [address] [place] [address], [facility] Calcium [Mass/Vol] 9.5 mg/dL Normal 8.6-10.3 [facility] Comment on above: Order Comment: No: D o not add to previous draw Performed By: #### 4 4396, 82050, 86986, 76955, 31677, 89632 #### [facility] [address] [place] [address], [place] Chloride [Moles/Vol] 104 mmol/L Normal 98-107 [facility] Comment on above: Order Comment: No: D o not add to previous draw Performed By: #### 4 4396, 04291, 40007, 57276, 22127, 97023 #### [facility] [address] [place] [address], [facility] CO2 [Moles/Vol] 28 mmol/L Normal 21-31 [facility] Comment on above: Order Comment: No: D o not add to previous draw Performed By: #### 4 4396, 51934, 30479, 89092, 68681, 15519 #### [facility] [address] [place] [address], [facility] Creatinine [Mass/Vol] 0.66 mg/dL Normal 0.60-1.20 [facility] Comment on above: Order Comment: No: D o not add to previous draw Performed By: #### 4 4396, 52221, 33519, 82296, 47637, 12445 #### [facility] [address] [place] [address], [place] GFR/1.73 sq M predicted among blacks MDRD (S/P/Bld) [Vol rate/Area] Calculation not validated for patients under 18 years Abnormal >60 [facility] Comment on above: Order Comment: No: D o not add to previous draw Performed By: #### 4 4396, 17616, 37473, 71365, 02896, 13895 #### [facility] [address] [place] [address], [place] GFR/1.73 sq M predicted among non-blacks MDRD (S/P/Bld) [Vol rate/Area] Calculation not validated for patients under 18 years Abnormal >60 [facility] Comment on above: Order Comment: No: D o not add to previous draw Performed By: #### 4 4396, 78909, 57783, 10304, 49098, 05631 #### [facility] [address] [place] [address], [place] Glucose [Mass/Vol] 139 mg/dL High 70-100 [facility] Comment on above: Order Comment: No: D o not add to previous draw Performed By: #### 4 4396, 80805, 15560, 51707, 04942, 49876 #### [facility] [address] [place] [address], [place] Potassium [Moles/Vol] 3.6 mmol/L Normal 3.5-5.1 [facility] Comment on above: Order Comment: No: D o not add to previous draw Performed By: #### 4 4396, 61444, 40837, 17816, 25150, 61230 #### [facility] [address] [place] [address], [place] Protein [Mass/Vol] 7.2 g/dL Normal 6.0-8.3 [facility] Comment on above: Order Comment: No: D o not add to previous draw Performed By: #### 4 4396, 90795, 42379, 64392, 63156, 99595 #### [facility] [address] [place] [address], [place] Sodium [Moles/Vol] 139 mmol/L Normal 136-145 [facility] Comment on above: Order Comment: No: D o not add to previous draw Performed By: #### 4 4396, 12757, 98472, 69169, 09613, 25037 #### [facility] [address] [place] [address], [facility] Urea nitrogen [Mass/Vol] 9 mg/dL Normal 7-25 [facility] Comment on above: Order Comment: No: D o not add to previous draw Performed By: #### 4 4396, 05317, 35535, 94510, 98279, 98613 #### [facility] [address] [place] [address], [facility] FREE T3on 09-29-2019 Free T3 [Mass/Vol] 4.2 pg/mL High 2.5-3.9 [facility] Comment on above: Order Comment: No: D o not add to previous draw Performed By: #### 4 4396, 65154, 39930, 39618, 63666, 97055 #### [facility] [address] [place] [address], [facility] FREE T4on 09-29-2019 Free T4 [Mass/Vol] 0.82 ng/dL Normal 0.71-1.85 [facility] Comment on above: Order Comment: No: D o not add to previous draw Performed By: #### 4 4396, 83640, 87098, 82696, 07948, 21014 #### [facility] [address] [place] [address], [facility] LIPID PROFILEon 09-29-2019 Cholesterol [Mass/Vol] 153 mg/dL Normal 120-170 [facility] Comment on above: Order Comment: No: D o not add to previous draw Result Comment: CHOL ESTEROL REFERENCE RANGE: 20 YEARS AND OLDER CARDIOVASCULAR RISK Less than 200 mg/dl Low Risk 200 to 239 mg/dl Borderline Risk 240 mg/dl and greater High Risk Performed By: #### 4 4396, 37397, 54730, 09486, 86303, 67443 #### [facility] [address] [place] [address], [facility] Cholesterol in HDL [Mass/Vol] 56 mg/dL Normal 23-92 [facility] Comment on above: Order Comment: No: D o not add to previous draw Result Comment: Slig ht variation in normal range could be due to gender and/or age. HDL CHOLESTEROL REFERENCE RANGE: 20 years and older Cardiovascular Risk > or =60 mg/dL Desirable 40 TO 59 mg/dL Low Risk <40 mg/dL High Risk Performed By: #### 4 4396, 19591, 06935, 54035, 52321, 67917 #### [facility] [address] [place] [address], [facility] Cholesterol in LDL [Mass/Vol] 74 mg/dL Normal 0-130 [facility] Comment on above: Order Comment: No: D o not add to previous draw Result Comment: LDL IS A CALCULATION LDL IS ONLY VALID IF THE TRIG IS LESS THAN 400. Performed By: #### 4 4396, 95610, 99424, 94701, 28282, 06060 #### [facility] [address] [place] [address], [facility] Cholesterol.total/Cho lesterol in HDL [Mass ratio] 2.7 {ratio} Normal 0.0-4.5 [facility] Comment on above: Order Comment: No: D o not add to previous draw Performed By: #### 4 4396, 77134, 65515, 87228, 57120, 67279 #### [facility] [address] [place] [address], [facility] NON-HDL CHOLESTEROL 97 mg/dL Normal [facility] Comment on above: Order Comment: No: D o not add to previous draw Performed By: #### 4 4396, 13127, 37315, 60790, 49142, 72755 #### [facility] [address] [place] [address], [place] Triglyceride [Mass/Vol] 114 mg/dL Normal 37-148 [facility] Comment on above: Order Comment: No: D o not add to previous draw Result Comment: TRIG LYCERIDE REFERENCE RANGE: 20 YEARS AND OLDER CARDIOVASCULAR RISK LESS THAN 150 mg/dl LOW RISK 150 TO 199 mg/dl BORDERLINE RISK 200 mg/dl AND GREATER HIGH RISK Performed By: #### 4 4396, 50870, 09850, 47068, 23515, 35879 #### [facility] [address] [place] [address], [facility] VLDL CHOL 23 mg/dL Normal 0-40 [facility] Comment on above: Order Comment: No: D o not add to previous draw Performed By: #### 4 4396, 11008, 71317, 15582, 55322, 40307 #### [facility] [address] [place], [place] [id number] [place] [address] SERUM TESTon 09-28 TEST Negative Normal [facility] Comment on above: Order Comment: No: D o not add to previous draw Performed By: #### 4 6473 #### [facility] [address] [place] [address], [facility] TSH3on 09-29-2019 TSH 3RD GENERATION 1.24 uIU/mL Normal 0.34-5.60 [facility] Comment on above: Order Comment: No: D o not add to previous draw Performed By: #### [id number] #### [facility] [address] [place], [place] [id number] [place] [address] VITAMIN D 25-HYDROXYon 09-28 VITAMIN D 25-OH 42.5 ng/mL Normal 30.0-80.0 [facility] Comment on above: Result Comment: >80. 0 Toxicity possible Performed By: #### [id number] #### [facility] [address] [place] [address], [facility] Urine Drug Screenon 09-28-19 20 Amphetamine Screen, Ur Negative NEGATIVE [facility] [place] Comment on above: (Positive cutoff 500 ng/mL) Barbiturate Screen, Ur Negative NEGATIVE [facility] [place] Comment on above: (Positive cutoff 200 ng/mL) Benzodiazepine Screen, Urine Negative NEGATIVE [place] Comment on above: (Positive cutoff 150 ng/mL) Buprenorphine Urine NOT REPORTED NEGATIVE [place] Cannabinoid Scrn, Ur Positive Abnormal NEGATIVE [place] Comment on above: (Positive cutoff 50 ng/mL) Cocaine Metabolite, Urine Negative NEGATIVE [place] Comment on above: (Positive cutoff 150 ng/mL) Interpretation and review of laboratory results Abnormal [place] MDMA, Urine NOT REPORTED NEGATIVE [place] Methadone Screen, Urine Negative NEGATIVE [place] Comment on above: (Positive cutoff 200 ng/mL) Methamphetamine, Urine Negative NEGATIVE [place] Comment on above: (Positive cutoff 500 ng/mL) Opiates, Urine Negative NEGATIVE [place] Comment on above: (Positive cutoff 100 ng/mL) Oxycodone Screen, Ur Negative NEGATIVE [place] Comment on above: (Positive cutoff 100 ng/mL) Phencyclidine, Urine Negative NEGATIVE [place] Comment on above: (Positive cutoff 25 ng/mL) Propoxyphene, Urine Negative NEGATIVE [place] Comment on above: (Positive cutoff 300 ng/mL) Test Information NOT REPORTED [place] Tricyclic Antidepressants, Urine Negative NEGATIVE [place] Comment on above: (Positive cutoff 300 ng/mL) Drug screen results are to be used for medical purposes only. All positive results are unconfirmed. Testing for employment or legal uses should be sent to a reference laboratory for confirmation. Acetaminophen Levelon 2019 Acetaminophen [Mass/Vol] <5 Low 10 - 30 ug/mL [place] Interpretation and review of laboratory results Abnormal [place] Basic Metabolic Panelon 09-06 Anion gap [Moles/Vol] 15 mmol/L 9 - 17 mmol/L [place] Bun/Cre Ratio 13 [place] Calcium [Mass/Vol] 10.5 mg/dL High 8.4 - 10. 2 mg/dL [place] Chloride [Moles/Vol] 98 mmol/L 98 - 10 7 mmol/L [place] CO2 [Moles/Vol] 23 mmol/L 20 - 31 mmol/L [place] Creatinine [Mass/Vol] 0.61 mg/dL 0.5 - 0.9 mg/dL [place] GFR NOT REPORTED >60 mL/min [place] GFR Non- Pediatric GFR requires additional information. Refer to [facility] website for calculator. >60 mL/min [place] GFR/1.73 sq M predicted among non-blacks MDRD (S/P/Bld) [Vol rate/Area] NOT REPORTED [place] GFR/1.73 sq M predicted among non-blacks MDRD (S/P/Bld) [Vol rate/Area] [place] Comment on above: Average GFR for <20 years old not available. Chronic Kidney Disease: <60 mL/min/1.73sq m Kidney failure: <15 mL/min/1.73sq m eGFR calculated using average adult body mass. Additional eGFR calculator available at: http://www.[employer]/multiple_crcl_2011.htm Glucose [Mass/Vol] 106 mg/dL High 60 - 100 mg/dL [place] Potassium [Moles/Vol] 3.9 mmol/L 3.6 - 4.9 mmol/L [place] Sodium [Moles/Vol] 136 mmol/L 135 - 144 mmol/L [place] Urea nitrogen [Mass/Vol] 8 mg/dL 5 - 18 mg/dL [place] CBC Auto Differentialon 09-06 Basophils (Bld) [#/Vol] 0.00 10*3/uL [place] Basophils/100 WBC (Bld) 0 % 0 - 2 % [place] Differential Type YES [place] Eosinophils (Bld) [#/Vol] 0.10 10*3/uL [place] Eosinophils/100 WBC (Bld) 1 % 0 - 5 % [place] Erythrocyte distribution width (RBC) [Ratio] 14.8 % 12.1 - 15.2 % [place] Hematocrit (Bld) [Volume fraction] 40.2 % 36 - 46 % [place] Hemoglobin (Bld) [Mass/Vol] 13.8 g/dL 12 - 16 g/dL [place] Lymphocytes (Bld) [#/Vol] 1.90 10*3/uL [place] Lymphocytes/100 WBC (Bld) 21 % 14 - 41 % [place] MCH (RBC) [Entitic mass] 28.4 pg 25 - 35 pg [place] MCHC (RBC) [Mass/Vol] 34.2 g/dL 31 - 37 g/dL [place] MCV (RBC) [Entitic vol] 83.1 fL 78 - 102 fL [place] Monocytes (Bld) [#/Vol] 0.70 10*3/uL [place] Monocytes/100 WBC (Bld) 7 % 4 - 8 % [place] Platelet mean volume (Bld) [Entitic vol] NOT REPORTED 6 - 12 fL [place] Platelets (Bld) [#/Vol] 238 10*3/uL [place] Platelets (Bld) [#/Vol] NOT REPORTED [place] RBC (Bld) [#/Vol] 4.84 10*6/uL 4 - 5.2 m/uL [place] RBC morphology finding Nom (Bld) NOT REPORTED [place] Segmented neutrophils/100 WBC (Bld) 71 % 45 - 76 % [place] Segs Absolute 6.50 [place] WBC (Bld) [#/Vol] 9.2 10*3/uL [place] WBC (Bld) [#/Vol] NOT REPORTED per 100 WBC [place] WBC Morphology NOT REPORTED [place] Ethanolon 09-27-2019 Ethanol [Mass/Vol] mg/dL <10 mg/dL [place] Ethanol percent <0.010 % [place] HCG Qualitative, Serumon hCG Qual Negative NEGATIVE [place] Comment on above: Specimens with hCG l evels near the threshold of the test (25 mIU/mL) may give a negative or indeterminate result. In such cases, another test should be performed with a new specimen in 48-72 hours. If early is suspected clinically in this setting, correlation with quantitative serum b-hCG level is suggested. [facility] has confirmed the use of plasma for this test. This has not been cleared or approved by the U.S. Food and Drug Administration. The FDA has determined that such clearance is not necessary. Otheron 09-27-2019 Interpretation and review of laboratory results Abnormal [facility] Immature granulocytes (Bld) [#/Vol] NOT REPORTED 0 % [facility] Salicylateon 09-27-2019 Salicylate Lvl <1 Low 3 - 10 mg/dL [facility] [place] TSH without Reflexon 020 TSH Qn 0.49 m[IU]/L [facility] X[facility] HAND RIGHT (MIN 3 VIEWS)o n 09-27-2019 EXAM: XR HAND RIGHT (MIN 3 VIEWS) HISTORY: Reason for exam:->pain to lateral MCs, punched wall COMPARISON: Right hand, 07/20/2014. TECHNIQUE: AP, oblique and lateral views of the right hand. FINDINGS: No acute or intrinsic osseous, articular or soft tissue abnormality is seen. [facility] No acute findings. [facility] Jeovany, Mhpn Incoming Radiant Results From [facility] - 09/27/2019 11:39 PM EDT EXAM: XR HAND RIGHT (MIN 3 VIEWS) HISTORY: Reason for exam:->pain to lateral MCs, punched wall COMPARISON: Right hand, 07/20/2014. TECHNIQUE: AP, oblique and lateral views of the right hand. FINDINGS: No acute or intrinsic osseous, articular or soft tissue abnormality is seen. IMPRESSION: No acute findings. [facility] CBC Auto Differentialon 11-0 Basophils (Bld) [#/Vol] 0.00 10*3/uL [facility] Basophils/100 WBC (Bld) 1 % 0 - 2 % [facility] [place] Differential Type YES [facility] [place] Eosinophils (Bld) [#/Vol] 0.00 10*3/uL [place] Eosinophils/100 WBC (Bld) 1 % 0 - 5 % [place] Erythrocyte distribution width (RBC) [Ratio] 14.3 % 12.1 - 15.2 % [place] Hematocrit (Bld) [Volume fraction] 40.7 % 36 - 46 % [place] Hemoglobin (Bld) [Mass/Vol] 13.4 g/dL 12 - 16 g/dL [place] Interpretation and review of laboratory results Abnormal [place] Lymphocytes (Bld) [#/Vol] 1.20 10*3/uL [place] Lymphocytes/100 WBC (Bld) 33 % 14 - 41 % [place] MCH (RBC) [Entitic mass] 27.3 pg 25 - 35 pg [place] MCHC (RBC) [Mass/Vol] 33.0 g/dL 31 - 37 g/dL [place] MCV (RBC) [Entitic vol] 82.8 fL 78 - 102 fL [place] Monocytes (Bld) [#/Vol] 0.40 10*3/uL [place] Monocytes/100 WBC (Bld) 12 % High 4 - 8 % [place] Platelet mean volume (Bld) [Entitic vol] NOT REPORTED 6 - 12 fL [place] Platelets (Bld) [#/Vol] 235 10*3/uL [place] Platelets (Bld) [#/Vol] NOT REPORTED [place] RBC (Bld) [#/Vol] 4.92 10*6/uL 4 - 5.2 m/uL [place] RBC morphology finding Nom (Bld) NOT REPORTED [place] Segmented neutrophils/100 WBC (Bld) 53 % 45 - 76 % [place] Segs Absolute 2.10 Low [place] WBC (Bld) [#/Vol] 3.8 10*3/uL [place] WBC (Bld) [#/Vol] NOT REPORTED per 100 WBC [place] WBC Morphology NOT REPORTED [place] Comprehensive Metabolic Pane bonita 01-12-2019 Albumin [Mass/Vol] 4.8 g/dL High 3.2 - 4.5 g/dL [place] Albumin/Globulin [Mass ratio] NOT REPORTED [place] ALP [Catalytic activity/Vol] 88 U/L 47 - 119 U/L [place] ALT [Catalytic activity/Vol] 12 U/L 5 - 33 U/L [place] Anion gap [Moles/Vol] 17 mmol/L 9 - 17 mmol/L [place] AST [Catalytic activity/Vol] 24 U/L <32 [place] Bilirubin Ql (U) 0.46 mg/dL 0.3 - 1.2 mg/dL [place] Bun/Cre Ratio 14 [place] Calcium [Mass/Vol] 10.4 mg/dL High 8.4 - 10. 2 mg/dL [place] Chloride [Moles/Vol] 101 mmol/L 98 - 10 7 mmol/L [place] CO2 [Moles/Vol] 22 mmol/L 20 - 31 mmol/L [place] Creatinine [Mass/Vol] 0.65 mg/dL 0.5 - 0.9 mg/dL [place] GFR NOT REPORTED >60 mL/min [place] GFR Non- Pediatric GFR requires additional information. Refer to [facility]DEP website for calculator. >60 mL/min [place] GFR/1.73 sq M predicted among non-blacks MDRD (S/P/Bld) [Vol rate/Area] NOT REPORTED [place] GFR/1.73 sq M predicted among non-blacks MDRD (S/P/Bld) [Vol rate/Area] [place] Comment on above: Average GFR for <20 years old not available. Chronic Kidney Disease: <60 mL/min/1.73sq m Kidney failure: <15 mL/min/1.73sq m eGFR calculated using average adult body mass. Additional eGFR calculator available at: http://www.globalrph.[employer]/multiple_crcl_2012.htm Glucose [Mass/Vol] 90 mg/dL 60 - 100 mg/dL [place] Interpretation and review of laboratory results Abnormal [place] Potassium [Moles/Vol] 3.9 mmol/L 3.6 - 4.9 mmol/L [place] Protein [Mass/Vol] 8.7 g/dL High 6 - 8 g/dL [place] Sodium [Moles/Vol] 140 mmol/L 135 - 144 mmol/L [place] Urea nitrogen [Mass/Vol] 9 mg/dL 5 - 18 mg/dL [place] HCG Qualitative, Serumon hCG Qual Negative NEGATIVE [place] Comment on above: Specimens with hCG l evels near the threshold of the test (25 mIU/mL) may give a negative or indeterminate result. In such cases, another test should be performed with a new specimen in 48-72 hours. If early is suspected clinically in this setting, correlation with quantitative serum b-hCG level is suggested. [facility] has confirmed the use of plasma for this test. This has not been cleared or approved by the U.S. Food and Drug Administration. The FDA has determined that such clearance is not necessary. Otheron 01-12-2019 Immature granulocytes (Bld) [#/Vol] NOT REPORTED [place] HCG QUALITATIVE, URINEon HCG ( test) Ql (U) Negative [employer] [facility] Otheron 12-18-2018 Interpretation and review of laboratory results Abnormal [facility] URINALYSIS, MACROon 12-19-19 19 Bilirubin Ql (U) Negative NEGATIVE [facility] Clarity (U) CLEAR CLEAR [facility] Color (U) YELLOW YELLOW [facility] [...] HEALTH Specific gravity (U) [Rel density] 1.025 [facility] Urobilinogen (U) [Mass/Vol] 0.2 [facility] URINE HCG QUALon 12-18-2018 Beta HCG ( test) Ql (U) Negative Normal [facility] URINE MACROSCOPICon 12-19-19 19 Bilirubin Ql (U) Negative Normal NEGATIVE [facility] Clarity (U) CLEAR Normal CLEAR [facility] Color (U) YELLOW Normal YELLOW [facility] Glucose Ql (U) Negative Normal NEGATIVE [facility] pH (U) 7.0 [pH] Normal 5.0-7.0 [facility] Protein (U) [Mass/Vol] TRACE Abnormal NEGATIVE [facility] URINE HEMOGLOBIN Negative Normal NEGATIVE [facility] URINE KETONE Negative Normal NEGATIVE [facility] URINE LEUKOTEST Negative Normal NEGATIVE [facility] URINE NITRATES Negative Normal NEGATIVE [facility] URINE SPEC GRAVITY 1.025 Normal 1.010-1.025 [facility] Urobilinogen Qn (U) 0.2 {Manuel'U}/dL Normal 0.2-1.0 [facility] URINE MICROSCOPICon 12-19-19 19 Bacteria LM.HPF (Urine sed) [#/Area] TRACE Abnormal NEGATIVE [facility] Casts LM.LPF (Urine sed) [#/Area] NONE Normal NONE [facility] CRYSTAL NONE Normal NONE [facility] Epithelial cells LM.HPF (Urine sed) [#/Area] 10 TO 20 Normal [facility] Mucus Ql (Urine sed) Negative Normal NEGATIVE [facility] RBC (U) [#/Vol] Negative Normal NEGATIVE [facility] URINE COMMENT CULTURE CRITERIA NOT MET, NO CULTURE PERFORMED. Normal [facility] WBC (U) [#/Vol] 1 TO 5 Normal NEGATIVE [facility] Bacteria LM.HPF (Urine sed) [#/Area] TRACE Abnormal NEGATIVE [facility] Casts LM.LPF (Urine sed) [#/Area] NONE NONE /LPF [facility] Crystals LM Nom (Urine sed) NONE NONE [facility] Epithelial cells LM Ql (Urine sed) 10 TO 20 /HPF [facility] Mucus Ql (Urine sed) Negative NEGATIVE [facility] RBC LM.HPF (Urine sed) [#/Area] Negative NEGATIVE /HPF [facility] Urine sediment comments LM Vinnie (Urine sed) CULTURE CRITERIA NOT MET, NO CULTURE PERFORMED. [facility] WBC LM.HPF (Urine sed) [#/Area] 1 TO 5 NEGATIVE /HPF [facility] Strep Screen Group A Throato n 12-16-2018 S. pyogenes Ag IA Ql (Unsp spec) Rapid Strep A negative. A negative Rapid Group A Strep Screen result does not rule out the possibility of Group A Streptococci in the specimen. The [place] [employer] recommends confirmation testing. Therefore, a Group A Strep DNA test will be performed. [place] Special Requests NOT REPORTED [place] Specimen Description .THROAT [place] XR CHEST STANDARD (2 VW)on Negative chest. [place] EXAM: XR CHEST (2 VW) HISTORY: Reason for exam:->cough COMPARISON: None. TECHNIQUE: 2 views chest FINDINGS: Heart size normal. Lungs clear. Bony thorax and upper abdomen normal. [place] Jeovany, Mhpn Incoming Radiant Results From [facility] - 12/16/2018 5:28 PM EDT EXAM: XR CHEST (2 VW) HISTORY: Reason for exam:->cough COMPARISON: None. TECHNIQUE: 2 views chest FINDINGS: Heart size normal. Lungs clear. Bony thorax and upper abdomen normal. IMPRESSION: Negative chest. [place] Vital Signs Date Time Vital Sign Value Performing Clinician Shadi ag 04-13-2024 09:58-0500 Body weight 74.57 kg Jewell MATTHEWS Work Phone: [facility] 04-13-2024 09:58-0500 Diastolic blood pressure 80 mm[Hg] Jewell MATTHEWS Work Phone: [facility] 04-13-2024 09:58-0500 Systolic blood pressure 122 mm[Hg] Jewell MATTHEWS Work Phone: [facility] 04-06-2024 09:13-0500 Body weight 73.66 kg Meir Jamalfernanda MOSER Work Phone: [facility] 04-06-2024 09:13-0500 Diastolic blood pressure 74 mm[Hg] Meir Jamal DO Work Phone: [facility] 04-06-2024 09:13-0500 Systolic blood pressure 120 mm[Hg] Meir Jamal DO Work Phone: [facility] 03-06-2024 10:11-0500 Body weight 72.18 kg Jewell Macedo PA Work Phone: [facility] 03-06-2024 10:11-0500 Diastolic blood pressure 64 mm[Hg] Jewell Remington PA Work Phone: [facility] 03-06-2024 10:11-0500 Systolic blood pressure 110 mm[Hg] Jewell Remington PA Work Phone: [facility] 02-21-2024 10:13-0500 Body height 160 cm Doyle Amaro MD Work Phone: [facility] 02-21-2024 10:13-0500 Body mass index (BMI) [Ratio] 28.52 kg/m2 Doyle Amaro MD Work Phone: [facility] 02-21-2024 10:13-0500 Body weight 73.03 kg Doyle Amaro MD Work Phone: [facility] 02-21-2024 10:13-0500 Diastolic blood pressure 70 mm[Hg] Doyle Amaro MD Work Phone: [facility] 02-21-2024 10:13-0500 Systolic blood pressure 105 mm[Hg] Doyle Amaro MD Work Phone: [facility] 02-07-2024 11:12-0500 Body mass index (BMI) [Ratio] 28.63 kg/m2 Malka CURTIS Work Phone: [facility] 02-07-2024 11:12-0500 Body weight 73.3 kg Malka CURTIS Work Phone: [facility] 02-07-2024 11:12-0500 Diastolic blood pressure 60 mm[Hg] Malka Allison [employer] MACHINIST Work Phone: [facility] 02-07-2024 11:12-0500 Systolic blood pressure 108 mm[Hg] Malka Allison [employer] AND [employer] MACHINIST Work Phone: [facility] 01-10-2024 09:44-0500 Body mass index (BMI) [Ratio] 27.56 kg/m2 Nahed Stewart MD Work Phone: [facility] 01-10-2024 09:44-0500 Body weight 70.58 kg Nahed Stewart MD Work Phone: 7(352)[phone] [place] [address] 01-10-2024 09:44-0500 Diastolic blood pressure 60 mm[Hg] Nahed Stewart MD Work Phone: 6(511)[phone] [place] [address] 01-10-2024 09:44-0500 Systolic blood pressure 100 mm[Hg] Nahed Stewart MD Work Phone: 7(243)[phone] [place] [address] 12-13-2023 09:17-0400 Body mass index (BMI) [Ratio] 26.04 kg/m2 Nahed Stewart MD Work Phone: [facility] 12-13-2023 09:17-0400 Body weight 66.68 kg Nahed Stewart MD Work Phone: [facility] 12-13-2023 09:17-0400 Diastolic blood pressure 60 mm[Hg] Nahed Stewart MD Work Phone: [facility] 12-13-2023 09:17-0400 Systolic blood pressure 100 mm[Hg] Nahed Stewart MD Work Phone: [phone])[phone] [place] [address] 11-11-2023 13:33-0400 Body mass index (BMI) [Ratio] 24.98 kg/m2 Nahed Stewart MD Work Phone: [facility] 11-11-2023 13:33-0400 Body weight 63.96 kg Nahed Stewart MD Work Phone: [facility] 11-11-2023 13:33-0400 Diastolic blood pressure 56 mm[Hg] Nahed Stewart MD Work Phone: [facility] 11-11-2023 13:33-0400 Systolic blood pressure 112 mm[Hg] Nahed Stewart MD Work Phone: [facility] 10-14-2023 13:27-0400 Body height 160 cm Doyle Amaro MD Work Phone: [facility] 10-14-2023 13:27-0400 Body mass index (BMI) [Ratio] 24.62 kg/m2 Doyle Amaro MD Work Phone: [facility] 10-14-2023 13:27-0400 Body weight 63.05 kg Doyle Amaro MD Work Phone: [facility] 10-14-2023 13:27-0400 Diastolic blood pressure 62 mm[Hg] Doyle Amaro MD Work Phone: [facility] 10-14-2023 13:27-0400 Systolic blood pressure 120 mm[Hg] Doyle Amaro MD Work Phone: [facility] 09-26-2023 19:52-0400 Diastolic blood pressure 86 mm[Hg] Justin Hewitt [facility] 09-26-2023 19:52-0400 Heart rate 96 /min Justin Hewitt [facility] 09-26-2023 19:52-0400 Mean blood pressure 97 mm[Hg] Justin Hewitt [facility] 09-26-2023 19:52-0400 Respiratory rate 23 /min Justin Hewitt [facility] 09-26-2023 19:52-0400 SaO2% (BldA) [Mass fraction] 99 % Justin Hewitt [facility] 09-26-2023 19:52-0400 Systolic blood pressure 120 mm[Hg] Justin Hewitt [facility] 09-26-2023 18:46-0400 Diastolic blood pressure 81 mm[Hg] Justin Kash [facility] 09-26-2023 18:46-0400 Heart rate 89 /min Justin Kash [facility] 09-26-2023 18:46-0400 Mean blood pressure 96 mm[Hg] Justin Kash [facility] 09-26-2023 18:46-0400 Respiratory rate 18 /min Justin Kash [facility] 09-26-2023 18:46-0400 SaO2% (BldA) [Mass fraction] 98 % Justin Kash [facility] 09-26-2023 18:46-0400 Systolic blood pressure 126 mm[Hg] Justin Kash [facility] 09-26-2023 18:00-0400 Heart rate 97 /min Justin Kash [facility] 09-26-2023 18:00-0400 Mean blood pressure 94 mm[Hg] Justin Kash [facility] 09-26-2023 18:00-0400 SaO2% (BldA) [Mass fraction] 100 % Justin Kash [facility] 09-26-2023 18:00-0400 Systolic blood pressure 121 mm[Hg] Justin Kash [facility] 09-26-2023 16:57-0400 Body temperature 98.96 [degF] Justin Kash [facility] 09-26-2023 16:57-0400 Heart rate 94 /min Justin Kash [facility] 09-26-2023 16:57-0400 Respiratory rate 18 /min Jutsin Kash [facility] 09-26-2023 16:42-0400 Body temperature 98.6 [degF] Justin Hewitt [facility] 09-26-2023 16:42-0400 Heart rate 106 /min Justin Hewitt [facility] 09-26-2023 16:42-0400 Respiratory rate 18 /min Justin Hewitt [facility] 09-24-2023 13:28-0400 Body height 160 cm Avg Gurjit Gal [id number] [facility] 09-24-2023 13:28-0400 Body mass index (BMI) [Ratio] 23.91 kg/m2 Avg Gurjit Gal [address] 09-24-2023 13:28-0400 Body weight 61.24 kg Avg Gurjit Gal [id number] [facility] 09-24-2023 13:28-0400 Diastolic blood pressure 68 mm[Hg] Avg Gurjit Gal [id number] [facility] 09-24-2023 13:28-0400 Systolic blood pressure 112 mm[Hg] Avg Gurjit Gal [id number] [facility] 09-16-2023 08:37-0400 Body temperature 98.24 [degF] [facility] 09-16-2023 08:37-0400 Diastolic blood pressure 78 mm[Hg] [facility] 09-16-2023 08:37-0400 Heart rate 76 /min [facility] 09-16-2023 08:37-0400 Respiratory rate 18 /min [facility] 09-16-2023 08:37-0400 SaO2% (BldA) [Mass fraction] 100 % [facility] 09-16-2023 08:37-0400 Systolic blood pressure 126 mm[Hg] [facility] 09-13-2023 10:56-0400 Blood Pressure Location Pari Underwood [facility] 09-13-2023 10:56-0400 Body temperature 97.88 [degF] Pari Underwood [facility] 09-13-2023 10:56-0400 Diastolic blood pressure 68 mm[Hg] Pari Underwood [facility] 09-13-2023 10:56-0400 Heart rate 74 /min Pari Underwood [facility] 09-13-2023 10:56-0400 Respiratory rate 18 /min Pari Underwood [facility] 09-13-2023 10:56-0400 SaO2% (BldA) [Mass fraction] 98 % Pari Underwood [facility] 09-13-2023 10:56-0400 Systolic blood pressure 110 mm[Hg] Pari Underwood [facility] 08-13-2023 14:20-0400 Blood Pressure Location Pari Underwood [facility] 08-13-2023 14:20-0400 Body temperature 97.88 [degF] Pari Underwood [facility] 08-13-2023 14:20-0400 Diastolic blood pressure 80 mm[Hg] Pari Underowod [facility] 08-13-2023 14:20-0400 Heart rate 88 /min Pari Underwood [facility] 08-13-2023 14:20-0400 Respiratory rate 16 /min Pari Underwood [facility] 08-13-2023 14:20-0400 SaO2% (BldA) [Mass fraction] 99 % Pari Bazzizier [facility] 08-13-2023 14:20-0400 Systolic blood pressure 122 mm[Hg] Pari Bazzizier [facility] 08-04-2023 14:57-0400 Body mass index (BMI) [Ratio] 22.96 kg/m2 Nahed Stewart MD Work Phone: [facility] 08-04-2023 14:57-0400 Body weight 58.79 kg Nahed Stewart MD Work Phone: [facility] 08-04-2023 14:57-0400 Diastolic blood pressure 62 mm[Hg] Nahed Stewart MD Work Phone: [facility] 08-04-2023 14:57-0400 Systolic blood pressure 120 mm[Hg] Nahed Stewart MD Work Phone: [facility] 04-16-2023 14:16-0500 Body mass index (BMI) [Ratio] 20.87 kg/m2 Nahed Stewart MD Work Phone: [facility] 04-16-2023 14:16-0500 Body weight 53.43 kg Nahed Stewart MD Work Phone: [facility] 04-16-2023 14:16-0500 Diastolic blood pressure 76 mm[Hg] Nahed Stewart MD Work Phone: [facility] 04-16-2023 14:16-0500 Systolic blood pressure 118 mm[Hg] Nahed Stewart MD Work Phone: [facility] 10-23-2022 09:25-0400 Body height 160 cm Nahed Stewart MD Work Phone: [employer] [facility] [facility] 10-23-2022 09:25-0400 Body mass index (BMI) [Ratio] 21.33 kg/m2 Nahed Stewart MD Work Phone: [facility] [facility] 10-23-2022 09:25-0400 Body weight 54.61 kg Nahed Stewart MD Work Phone: [facility] [employer] [facility] 10-23-2022 09:25-0400 Diastolic blood pressure 68 mm[Hg] Nahed Stewart MD Work Phone: [facility] [employer] [facility] 10-23-2022 09:25-0400 Systolic blood pressure 100 mm[Hg] Nahed Stewart MD Work Phone: [facility] 09-01-2022 13:16-0400 Body mass index (BMI) [Ratio] 21.36 kg/m2 Nahed Stewart MD Work Phone: [facility] 09-01-2022 13:16-0400 Body weight 54.7 kg Nahed Stewart MD Work Phone: [facility] [employer] [facility] 09-01-2022 13:16-0400 Diastolic blood pressure 66 mm[Hg] Nahed Stewart MD Work Phone: [facility] [employer] [facility] 09-01-2022 13:16-0400 Systolic blood pressure 120 mm[Hg] Nahed Stewart MD Work Phone: [facility] 06-08-2022 13:20-0400 Body temperature 98.71 [degF] [facility] 06-08-2022 13:20-0400 Diastolic blood pressure 70 mm[Hg] [facility] [employer] [facility] 06-08-2022 13:20-0400 Heart rate 82 /min [facility] 06-08-2022 13:20-0400 Respiratory rate 18 /min [facility] 06-08-2022 13:20-0400 SaO2% (BldA) [Mass fraction] 97 % [facility] [employer] [facility] 06-08-2022 13:20-0400 Systolic blood pressure 117 mm[Hg] [facility] 04-22-2022 09:40-0500 Body mass index (BMI) [Ratio] 21.01 kg/m2 Nahed Stewart [facility] 04-22-2022 09:40-0500 Body weight 53.8 kg Nahed Stewart MD Work Phone: [facility] [employer] [facility] 04-22-2022 09:40-0500 Diastolic blood pressure 62 mm[Hg] Nahed Stewart MD Work Phone: [facility] 04-22-2022 09:40-0500 Systolic blood pressure 110 mm[Hg] Nahed Stewart MD Work Phone: [facility] 03-20-2022 14:35-0500 Body mass index (BMI) [Ratio] 22.21 kg/m2 Nahed Stewart MD Work Phone: [facility] [employer] [facility] 03-20-2022 14:35-0500 Body weight 56.88 kg Nahed Stewart MD Work Phone: [facility] 03-20-2022 14:35-0500 Diastolic blood pressure 70 mm[Hg] Nahed Stewart MD Work Phone: [facility] [employer] [facility] 03-20-2022 14:35-0500 Systolic blood pressure 118 mm[Hg] Nahed Stewart MD Work Phone: [facility] [employer] [facility] 10-24-2021 14:45-0400 Body height 160 cm Nahed Stewart MD Work Phone: [facility] 10-24-2021 14:45-0400 Body mass index (BMI) [Ratio] 23.03 kg/m2 Nahed Stewart MD Work Phone: [facility] [employer] [facility] 10-24-2021 14:45-0400 Body weight 58.97 kg Nahed Stewart MD Work Phone: [facility] [employer] [facility] 10-24-2021 14:45-0400 Diastolic blood pressure 62 mm[Hg] Nahed Stewart MD Work Phone: [facility] [employer] [facility] 10-24-2021 14:45-0400 Systolic blood pressure 120 mm[Hg] Nahed Stewart MD Work Phone: [facility] [employer] [facility] 08-05-2021 09:20-0400 Body mass index (BMI) [Ratio] 28.09 kg/m2 Nahed Stewart MD Work Phone: [facility] 08-05-2021 09:20-0400 Body weight 71.94 kg Nahed Stewart MD Work Phone: [facility] 08-05-2021 09:20-0400 Diastolic blood pressure 56 mm[Hg] Nahed Stewart MD Work Phone: [facility] 08-05-2021 09:20-0400 Systolic blood pressure 98 mm[Hg] Nahed Stewart MD Work Phone: [facility] 07-28-2021 09:03-0400 Body height 160 cm Doyle Amaro MD Work Phone: 4(172)481-739227 [place] [address] 07-28-2021 09:03-0400 Body mass index (BMI) [Ratio] 27.46 kg/m2 Doyle Amaro MD Work Phone: 5(105)[phone] [place] [address] 07-28-2021 09:03-0400 Body weight 70.31 kg Doyle Amaro MD Work Phone: 4(981)[phone] [place] [address] 07-28-2021 09:03-0400 Diastolic blood pressure 64 mm[Hg] Doyle Amaro MD Work Phone: [facility] 07-28-2021 09:03-0400 Systolic blood pressure 140 mm[Hg] Doyle Amaro MD Work Phone: [facility] 07-14-2021 09:00-0400 Body height 160 cm Malka Allison APRN-TOOL AND DIE MACHINIST Work Phone: [facility] 07-14-2021 09:00-0400 Body mass index (BMI) [Ratio] 26.75 kg/m2 Malka Allison APRN-TOOL AND DIE MACHINIST Work Phone: [facility] 07-14-2021 09:00-0400 Body weight 68.49 kg Malka Allison APRN-TOOL AND DIE MACHINIST Work Phone: [facility] 07-14-2021 09:00-0400 Diastolic blood pressure 62 mm[Hg] Malka Allison APRN-TOOL AND DIE MACHINIST Work Phone: 8(632)267-025527 [place] [address] 07-14-2021 09:00-0400 Systolic blood pressure 106 mm[Hg] Malka Allison OILSEED MEAT PRESSER-TOOL AND DIE MACHINIST Work Phone: [facility] 06-30-2021 09:33-0400 Body height 160 cm Doyle Amaro MD Work Phone: [facility] 06-30-2021 09:33-0400 Body mass index (BMI) [Ratio] 26.04 kg/m2 Doyle Amaro MD Work Phone: 0(219)[phone] [place] [address] 06-30-2021 09:33-0400 Body weight 66.68 kg Doyle Amaro MD Work Phone: 1(046)[phone] [place] [address] 06-30-2021 09:33-0400 Diastolic blood pressure 64 mm[Hg] Doyle Amaro MD Work Phone: 4(891)066-821627 [place] [address] 06-30-2021 09:33-0400 Systolic blood pressure 102 mm[Hg] Doyle Amaro MD Work Phone: [facility] 06-16-2021 09:08-0400 Body height 160 cm Malka Allison OILSEED MEAT PRESSER-TOOL AND DIE MACHINIST Work Phone: [facility] 06-16-2021 09:08-0400 Body mass index (BMI) [Percentile] Per age and sex 84.17 % Malka Allison OILSEED MEAT PRESSER-TOOL AND DIE MACHINIST Work Phone: [facility] 06-16-2021 09:08-0400 Body mass index (BMI) [Ratio] 25.86 kg/m2 Malka Allison OILSEED MEAT PRESSER-TOOL AND DIE MACHINIST Work Phone: [facility] 06-16-2021 09:08-0400 Body weight 66.22 kg Malka Allison OILSEED MEAT PRESSER-TOOL AND DIE MACHINIST Work Phone: [facility] 06-16-2021 09:08-0400 Diastolic blood pressure 64 mm[Hg] Malka Allison OILSEED MEAT PRESSER-TOOL AND DIE MACHINIST Work Phone: [facility] 06-16-2021 09:08-0400 Systolic blood pressure 106 mm[Hg] Malka Allison OILSEED MEAT PRESSER-TOOL AND DIE MACHINIST Work Phone: [employer] 06-02-2021 09:07-0400 Body mass index (BMI) [Percentile] Per age and sex 79.15 % Nahed Stewart MD Work Phone: [employer] 06-02-2021 09:07-0400 Body mass index (BMI) [Ratio] 24.8 kg/m2 Nahed Stewart MD Work Phone: [employer] 06-02-2021 09:07-0400 Body weight 63.5 kg Nahed Stewart MD Work Phone: [employer] 06-02-2021 09:07-0400 Diastolic blood pressure 56 mm[Hg] Nahed Stewart MD Work Phone: [employer] 06-02-2021 09:07-0400 Systolic blood pressure 100 mm[Hg] Nahed Stewart MD Work Phone: [employer] 05-13-2021 10:08-0500 Body height 160 cm Malka Allison OILSEED MEAT PRESSER-TOOL AND DIE MACHINIST Work Phone: [employer] 05-13-2021 10:08-0500 Body mass index (BMI) [Percentile] Per age and sex 72.35 % Malkaignacia Allison OILSEED MEAT PRESSER-TOOL AND DIE MACHINIST Work Phone: [facility] 05-13-2021 10:08-0500 Body mass index (BMI) [Ratio] 23.74 kg/m2 Malka Allison OILSEED MEAT PRESSER-TOOL AND DIE MACHINIST Work Phone: [facility] 05-13-2021 10:08-0500 Body weight 60.78 kg Malka Allison OILSEED MEAT PRESSER-TOOL AND DIE MACHINIST Work Phone: [facility] 05-13-2021 10:08-0500 Diastolic blood pressure 62 mm[Hg] Malka Allison OILSEED MEAT PRESSER-TOOL AND DIE MACHINIST Work Phone: [facility] 05-13-2021 10:08-0500 Systolic blood pressure 104 mm[Hg] Malka Allison OILSEED MEAT PRESSER-TOOL AND DIE MACHINIST Work Phone: [facility] 04-22-2021 14:24-0500 Body mass index (BMI) [Percentile] Per age and sex 72.49 % Nahed Stewart MD Work Phone: [facility] 04-22-2021 14:24-0500 Body mass index (BMI) [Ratio] 23.74 kg/m2 Nahed Stewart MD Work Phone: [facility] 04-22-2021 14:24-0500 Body weight 60.78 kg Nahed Stewart MD Work Phone: [facility] 04-22-2021 14:24-0500 Diastolic blood pressure 70 mm[Hg] Nahed Stewart MD Work Phone: [employer] 04-22-2021 14:24-0500 Systolic blood pressure 112 mm[Hg] Nahed Stewart MD Work Phone: [facility] 03-13-2021 10:20-0500 Body height 160 cm Doyle Amaro MD Work Phone: [facility] 03-13-2021 10:20-0500 Body mass index (BMI) [Percentile] Per age and sex 59.91 % Doyle Amaro MD Work Phone: [facility] 03-13-2021 10:20-0500 Body mass index (BMI) [Ratio] 22.32 kg/m2 Doyle Amaro MD Work Phone: [facility] 03-13-2021 10:20-0500 Body weight 57.15 kg Doyle Amaro MD Work Phone: [facility] 03-13-2021 10:20-0500 Diastolic blood pressure 76 mm[Hg] Doyle Amaro MD Work Phone: [facility] 03-13-2021 10:20-0500 Systolic blood pressure 122 mm[Hg] Doyle Amaro MD Work Phone: [facility] 02-06-2021 09:17-0500 Body height 160 cm Doyle Amaro MD Work Phone: [facility] 02-06-2021 09:17-0500 Body mass index (BMI) [Percentile] Per age and sex 56.34 % Doyle Amaro MD Work Phone: [facility] 02-06-2021 09:17-0500 Body mass index (BMI) [Ratio] 21.97 kg/m2 Doyle Amaro MD Work Phone: [facility] 02-06-2021 09:17-0500 Body weight 56.25 kg Doyle Amaro MD Work Phone: [facility] 02-06-2021 09:17-0500 Diastolic blood pressure 70 mm[Hg] Doyle Amaro MD Work Phone: [facility] 02-06-2021 09:17-0500 Systolic blood pressure 112 mm[Hg] Doyle Amaro MD Work Phone: [facility] 01-14-2021 09:45-0500 Body height 160 cm Avg Gurjit Gal [id number] [facility] 01-14-2021 09:45-0500 Body mass index (BMI) [Percentile] Per age and sex 60.4 % Avg Gurjit Gal [id number] [facility] 01-14-2021 09:45-0500 Body mass index (BMI) [Ratio] 22.32 kg/m2 Avg Gurjit Gal [id number] [facility] 01-14-2021 09:45-0500 Body weight 57.15 kg Avg Gurjit Gal [id number] [facility] 01-14-2021 09:45-0500 Diastolic blood pressure 72 mm[Hg] Avg Gurjit Gal [id number] [facility] 01-14-2021 09:45-0500 Systolic blood pressure 112 mm[Hg] Avg Gurjit Gal [id number] [facility] 09-28-2019 08:35-0400 BP Diastolic 68 mm[Hg] [place], [place] 09-28-2019 08:35-0400 BP Systolic 140 mm[Hg] [place] 09-28-2019 08:35-0400 Pulse (Heart Rate) 92 /min [facility] [place], [place] 09-28-2019 08:35-0400 Pulse Oximetry 99 % [facility], [place] 09-28-2019 08:35-0400 Respiratory Rate 16 /min [facility] 09-28-2019 06:54-0400 Body Temperature 98.29 [degF] [facility] 09-27-2019 22:49-0400 BMI (Body Mass Index) 21.43 kg/m2 [facility] 09-27-2019 22:49-0400 Body weight 54.88 kg [facility] 09-27-2019 22:49-0400 Height 160 cm [facility] 05-19-2019 19:55-0400 BP Diastolic 59 mm[Hg] [facility], [place] 05-19-2019 19:55-0400 BP Systolic 114 mm[Hg] [facility] 05-19-2019 19:55-0400 Pulse (Heart Rate) 66 /min [facility], [place] 05-19-2019 19:55-0400 Pulse Oximetry 100 % [facility] 05-19-2019 19:55-0400 Respiratory Rate 18 /min [facility] 05-19-2019 18:36-0400 BMI (Body Mass Index) 21.97 kg/m2 [facility] 05-19-2019 18:36-0400 Body Temperature 98.29 [degF] [facility] 05-19-2019 18:36-0400 Body weight 56.25 kg [facility] 05-19-2019 18:36-0400 Height 160 cm [facility] 03-08-2019 18:31-0500 Body temperature 98.1 [degF] Peter Petty MD Work Phone: [facility] Work Phone: 03-08-2019 18:31-0500 Body weight 57.15 kg Peter Petty MD Work Phone: [facility] Work Phone: 03-08-2019 18:31-0500 Diastolic blood pressure 90 mm[Hg] Peter Petty MD Work Phone: [facility] Work Phone: 03-08-2019 18:31-0500 Heart rate 86 /min Peter Petty MD Work Phone: [facility] Work Phone: 03-08-2019 18:31-0500 Respiratory rate 20 /min Peter Petty MD Work Phone: [facility] Work Phone: 03-08-2019 18:31-0500 SaO2% (BldA) [Mass fraction] 100 % Peter Petty MD Work Phone: [facility] Work Phone: 03-08-2019 18:31-0500 Systolic blood pressure 139 mm[Hg] Peter Petty MD Work Phone: [facility] Work Phone: 01-12-2019 23:01-0500 Pulse Oximetry 99 % [facility] [place] 01-12-2019 22:49-0500 BP Diastolic 80 mm[Hg] [facility] [place] 01-12-2019 22:49-0500 BP Systolic 107 mm[Hg] [facility] [place] 01-12-2019 22:17-0500 Body Temperature 97.59 [degF] [facility] [place] 01-12-2019 22:17-0500 Body weight 55.02 kg [facility] 01-12-2019 22:17-0500 Pulse (Heart Rate) 64 /min [facility], [place] 01-12-2019 22:17-0500 Respiratory Rate 16 /min [place], [place] 12-18-2018 14:52-0400 Height 160 cm [facility] 12-18-2018 14:47-0400 Body Temperature 99.81 [degF] [facility] 12-18-2018 14:47-0400 BP Diastolic 62 mm[Hg] [facility] 12-18-2018 14:47-0400 BP Systolic 108 mm[Hg] [facility] 12-18-2018 14:47-0400 Pulse (Heart Rate) 82 /min [facility] 12-18-2018 14:47-0400 Pulse Oximetry 96 % [facility] 12-18-2018 14:47-0400 Respiratory Rate 18 /min [facility] 12-16-2018 16:47-0400 BP Diastolic 46 mm[Hg] [place] 12-16-2018 16:47-0400 BP Systolic 94 mm[Hg] [place] 12-16-2018 16:46-0400 Body Temperature 99.19 [degF] [place], [place] 12-16-2018 16:46-0400 Body weight 55.2 kg [place] 12-16-2018 16:46-0400 Pulse (Heart Rate) 84 /min [place], [place] 12-16-2018 16:46-0400 Pulse Oximetry 100 % [place] 12-16-2018 16:46-0400 Respiratory Rate 16 /min [place] Encounters Encounter Date Encounter Type Care [...] care visit Doyle Amaro MD Work Phone: [facility] COAL CUTTING MACHINE OPERATOR Comment on above: Encounter for superv ision of other normal , third trimester (Primary Dx); 30 weeks gestation of Start: 02-21-2024 ambulatory DOYLE AMARO [facility] Start: 02-18-2024 End: 02-18-2024 Clinisync Result Encounter Meir Berry DO Work Phone: [facility] Unsolicited Start: 02-18-2024 End: 02-18-2024 Clinis[facility] Result Encounter Meir Berry DO Work Phone: [facility] Unsolicited Start: 02-07-2024 End: 02-07-2024 Subsequent care visit Malka Allison OILSEED MEAT PRESSER-TOOL AND DIE MACHINIST Work Phone: [facility] COAL CUTTING MACHINE OPERATOR Comment on above: Encounter for superv ision of other normal , third trimester (Primary Dx); 28 weeks gestation of Start: 02-07-2024 [facility] Start: 01-25-2024 End: 01-25-2024 ambulatory DORY Fuentes Facility:[facility] Start: 01-24-2024 ambulatory Justin Hewitt Facility:[facility] Start: 01-10-2024 End: 01-10-2024 Subsequent care visit Nahed Stewart MD Work Phone: [facility] COAL CUTTING MACHINE OPERATOR Comment on above: Encounter for superv ision of other normal , second trimester (Primary Dx) Start: 01-10-2024 [facility] Start: 12-13-2023 End: 12-13-2023 Subsequent care visit Nahed Stewart MD Work Phone: [facility] COAL CUTTING MACHINE OPERATOR Comment on above: Encounter for superv ision of other normal in second trimester (Primary Dx) Start: 12-13-2023 ambulatory [facility] Start: 12-13-2023 End: 12-13-2023 Subsequent hospital visit by physician Nahed Stewart MD Work Phone: [facility] Start: 11-11-2023 End: 11-11-2023 Subsequent care visit Nahed Stewart MD Work Phone: [facility] COAL CUTTING MACHINE OPERATOR Comment on above: Encounter for superv ision of other normal in first trimester (Primary Dx); 16 weeks gestation of Start: 11-11-2023 End: 11-11-2023 Subsequent hospital visit by physician Doyle Amaro MD Work Phone: [facility] Start: 11-11-2023 [facility] Start: 10-14-2023 End: 10-14-2023 Subsequent care visit Doyle Amaro MD Work Phone: [facility] COAL CUTTING MACHINE OPERATOR Comment on above: Encounter for superv ision of other normal in first trimester (Primary Dx); Hx of herpes genitalis; Family history of diabetes mellitus in sister; 12 weeks gestation of Start: 10-14-2023 [facility] Start: 09-26-2023 End: 09-26-2023 Emergency department patient visit Justin Hewitt [facility] Start: 09-24-2023 End: 09-24-2023 Office outpatient visit 5 minutes Nahed Stewart MD Work Phone: [facility] COAL CUTTING MACHINE OPERATOR Comment on above: Encounter for superv ision of other normal in first trimester (Primary Dx); 9 weeks gestation of ; Family history of diabetes mellitus in sister; HSV infection; Major depressive disorder, recurrent episode, moderate Start: 09-24-[address] [facility] Start: 09-16-2023 End: 09-16-2023 Emergency department patient visit Darvinglenda [place] Adam [facility] Start: 09-13-2023 End: 09-13-2023 ambulatory Pari Underwood Facility:[facility] Start: 09-13-2023 End: 09-13-2023 Patient encounter procedure Pari Underwood [facility] Start: 09-08-2023 ambulatory Pari Underwood Facili ty:[facility] Start: 08-30-2023 End: 08-30-2023 Emergency department patient visit PARIDUY UNDERWOOD [facility] Start: 08-13-2023 End: 08-13-2023 ambulatory Pari Underwood Facility:[facility] Start: 08-13-2023 End: 08-13-2023 Patient encounter procedure Pari Underwood [facility] Start: 08-04-2023 End: 08-04-2023 Office outpatient visit 15 minutes Nahed Stewart MD Work Phone: [facility] COAL CUTTING MACHINE OPERATOR Comment on above: Vaginal discharge (P rimary Dx) Start: 08-04-2023 [facility] Start: 07-28-2023 [facility] Facility: [facility] Start: 04-16-2023 End: 04-16-2023 Office outpatient visit 15 minutes Nahed Stewart MD Work Phone: [facility] COAL CUTTING MACHINE OPERATOR Comment on above: STD exposure (Primar y Dx) Start: 04-16-2023 [facility] Start: 10-24-2022 End: 10-24-2022 Emergency department patient visit [facility] Start: 10-23-2022 [facility] Start: 10-23-2022 End: 10-23-2022 Patient encounter procedure Nahed Stewart MD Work Phone: [facility] Start: 10-23-2022 End: 10-23-2022 Periodic preventive med est patient 18-39 yrs Nahed Stewart MD Work Phone: [facility] COAL CUTTING MACHINE OPERATOR Comment on above: Annual physical exam (Primary Dx) Start: 09-01-2022 [facility] Start: 09-01-2022 End: 09-01-2022 Office outpatient visit 15 minutes Nahed Stewart MD Work Phone: [facility] COAL CUTTING MACHINE OPERATOR Comment on above: Mastitis (Primary Dx ) Start: 06-08-2022 End: 06-08-2022 Emergency department patient visit [facility] Start: 06-08-2022 End: 06-08-2022 Emergency department patient visit [facility] Start: 04-22-2022 [facility] Start: 04-22-2022 End: 04-22-2022 Office outpatient visit 15 minutes Nahed Stewart MD Work Phone: [facility] COAL CUTTING MACHINE OPERATOR Comment on above: depressio n (Primary Dx) Start: 03-20-2022 [facility] Start: 03-20-2022 End: 03-20-2022 Office outpatient visit 15 minutes Nahed Stewart MD Work Phone: [facility] COAL CUTTING MACHINE OPERATOR Comment on above: Anxiety (Primary Dx) Start: 03-13-2022 [facility] Start: 10-24-2021 End: 10-24-2021 Office outpatient visit 15 minutes Nahed Stweart MD Work Phone: [facility] COAL CUTTING MACHINE OPERATOR Comment on above: Genital herpes simpl ex virus (HSV) infection in mother affecting Start: 08-05-2021 End: 08-05-2021 Subsequent care visit Nahed Stewart MD Work Phone: [facility] COAL CUTTING MACHINE OPERATOR Comment on above: Genital herpes simpl ex virus (HSV) infection in mother affecting (Primary Dx); Episodic cannabis use; LGSIL on Pap smear of cervix Start: 07-28-2021 End: 07-28-2021 Subsequent care visit Doyle Amaro MD Work Phone: [facility] COAL CUTTING MACHINE OPERATOR Comment on above: 36 weeks gestation o f (Primary Dx); Encounter for supervision of normal first in third trimester; Hx of herpes genitalis; Episodic cannabis use Start: 07-14-2021 End: 07-14-2021 Subsequent care visit Malka Allison APRN-TOOL AND DIE MACHINIST Work Phone: [facility] COAL CUTTING MACHINE OPERATOR Comment on above: Encounter for superv ision of normal first in third trimester (Primary Dx); 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 ; 34 weeks gestation of Start: 06-30-2021 End: 06-30-2021 Subsequent care visit Doyle Amaro MD Work Phone: [facility] COAL CUTTING MACHINE OPERATOR Comment on above: Encounter for superv ision of normal first in third trimester (Primary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
[2024-04-18 05:58] LABS: Hematocrit 32.3 % (36.0-48.0); Hemoglobin 10.1 g/dL (12.0-16.0); Mean Corpuscular HGB Conc 31.3 g/dL (29.9-35.2); Mean Corpuscular Hemoglobin 24.8 pg (26.7-34.0); Mean Corpuscular Volume 79.4 fL (81.0-99.0); Mean Platelet Volume 11.6 fL (9.5-13.5); Platelet Count 249 10^3/uL (150-450); Red Blood Count 4.07 10^6/uL (4.20-5.40); Red Cell Distribution Width 14.2 % (11.0-15.0); White Blood Count 8.6 10^3/uL (4.0-11.0)
[2024-04-18] MEDS: 0.9 % SODIUM CHLORIDE 1,000 ML 125 ML IV ×2 (06:00→15:36)
[2024-04-18] MEDS: OXYTOCIN/0.9 % SODIUM CHLORIDE 10 UNITS/500 ML PLAST..BAG 6 UNIT IV (06:03)
[2024-04-18 06:28] LABS: Amphetamine Screen Urine NEGATIVE (NEGATIVE); Barbiturates Screen Urine NEGATIVE (NEGATIVE); Benzodiazepines Screen Urine NEGATIVE (NEGATIVE); Buprenorphine Screen Urine NEGATIVE (NEGATIVE); Cannabinoid Screen Urine NEGATIVE (NEGATIVE); Cocaine Screen Urine NEGATIVE (NEGATIVE); Methadone Screen Urine NEGATIVE (NEGATIVE); Methamphetamines Screen Urine NEGATIVE (NEGATIVE); Opiate Screen Urine NEGATIVE (NEGATIVE); Oxycodone Screen Urine NEGATIVE (NEGATIVE); Phencyclidine Screen Urine NEGATIVE (NEGATIVE); Tricyclic Antidepressant Urine NEGATIVE (NEGATIVE)
[2024-04-18] MEDS: NALBUPHINE HCL 10 MG/ML AMPULE IV (12:00)
[2024-04-18] MEDS: 0.9 % SODIUM CHLORIDE 1,000 ML 1000 ML IV (13:10)
[2024-04-18] MEDS: ROPIVACAINE HCL/PF 400 MG/200 ML PREMIX 10 MG EPIDURAL (15:27)
--- NOTE | 2024-04-18 18:08 | PM.OBPRCVD ---
Procedure Intrapartal events: None Induction method: per pitocin protocol Delivery augmentation: rupture of membranes and pitocin Delivery monitor: external FHT and external uterine Route of delivery: Episiotomy Description: none L&D Laceration Description: none Estimated blood loss (mL): 300 Anesthesia type: Epidural Disposition: PACU Delivery date: 04/18/24 Gender: male presentation: vertex Placental delivery description: Spontaneous cord description: 3 Vessels and Nuchal Cord
[2024-04-18] MEDS: OXYTOCIN/0.9 % SODIUM CHLORIDE 20 UNITS/1,000 ML PLAST..BAG 125 UNIT IV (18:26)
[2024-04-18] MEDS: IBUPROFEN 600 MG TABLET PO (21:37)
[2024-04-19 04:02] VITALS: BP 126/62; PULSE 77
[2024-04-19 04:16] VITALS: TEMP 36.6
[2024-04-19 06:37] LABS: Basophils Absolute Auto 0.1 10^3/uL (0.0-0.1); Basophils Percent Auto 0.5 % (0.2-2.0); Eosinophils Absolute Auto 0.2 10^3/uL (0.0-0.7); Eosinophils Percent Auto 2.2 % (0.9-7.0); Hematocrit 29.9 % (36.0-48.0); Hemoglobin 9.4 g/dL (12.0-16.0); Immature Granulocytes Abs Auto 0.08 10^3/uL (0.00-0.03); Immature Granulocytes Pct Auto 0.8 % (0.0-0.5); Lymphocytes Absolute Auto 2.5 10^3/uL (1.2-3.8); Lymphocytes Percent Auto 24.2 % (20.5-60.0); Mean Corpuscular HGB Conc 31.4 g/dL (29.9-35.2); Mean Corpuscular Hemoglobin 25.1 pg (26.7-34.0); Mean Corpuscular Volume 79.9 fL (81.0-99.0); Mean Platelet Volume 10.6 fL (9.5-13.5); Monocytes Absolute Auto 0.9 10^3/uL (0.3-0.8); Monocytes Percent Auto 8.4 % (1.7-12.0); Neutrophils Absolute Auto 6.6 10^3/uL (1.4-6.5); Neutrophils Percent Auto 63.9 % (43.0-75.0); Platelet Count 206 10^3/uL (150-450); Red Blood Count 3.74 10^6/uL (4.20-5.40); Red Cell Distribution Width 14.1 % (11.0-15.0); White Blood Count 10.4 10^3/uL (4.0-11.0)
[2024-04-19 07:54] VITALS: BP 121/65; PULSE 75
[2024-04-19] MEDS: IBUPROFEN 600 MG TABLET PO (07:57)
--- NOTE | 2024-04-19 08:21 | PM.OBPN ---
OB - PN: Subj Subjective Patient comments: no complaints and pain well controlled status: doing well Exam Constitutional Vital Signs, click to edit/add: Last Vital Signs Temp 97.9 F 04/19/24 04:16 Pulse 75 04/19/24 07:54 Resp 16 04/19/24 04:16 BP 121/65 04/19/24 07:54 O2 Del Method Room Air 04/19/24 04:16 Documenting provider has reviewed patient's vital signs: yes Common normals: no apparent distress Respiratory Common normals: normal respiratory effort and clear to auscultation bilaterally Cardio Common normals: regular rate and regular rhythm GI Common normals: Normal to inspection, nondistended, normoactive bowel sounds present Extremity Common normals: no clubbing, cyanosis or edema and no calf tenderness Results Labs Labs: Short CBC 04/19/24 Range/Units 06:31 WBC 10.4 (4.0-11.0) 10^3/uL Hgb 9.4 L (12.0-16.0) g/dL Hct 29.9 L (36.0-48.0) % Plt Count 206 (150-450) 10^3/uL OB - PN: A/P Plan - Vaginal Delivery day: 1 Plan: routine care Time Spent with Patient Time: Total time spent is greater than 50% in coordination of care (as documented) at patient's floor/unit and/or counseling patient: Total time spent with greater than 50% in coordination of care (as documented) at patient's floor/unit and/or counseling patient: less than 15 minutes
[2024-04-19] MEDS: DOCUSATE SODIUM 100 MG CAPSULE PO (11:43)
[2024-04-19] MEDS: ACETAMINOPHEN 325 MG TABLET 650 MG PO (11:43)
[2024-04-19 17:05] VITALS: BP 124/70; PULSE 75; TEMP 36.2
== END 2024-04-19 20:00 | disposition home or self-care (01) | DRG 807 ==
PROVIDERS: Admitting Provider Obstetrics & Gynecology; Visit Provider Obstetrics & Gynecology
DX: O69.81X0 Labor and delivery complicated by cord around neck, without compression, not applicable or unspecified (principal); Z37.0 Single live birth; Z3A.39 39 weeks gestation of pregnancy
CPT/HCPCS: 36415; 51702; 59050; 59410; 80307; 85025; 85027; 86850; 86900; 86901; J2300; J2795

== ENCOUNTER 2024-11-09 19:57 | Emergency (ER) | payer OTHER, MEDICAID, SELFPAY ==
[2024-11-09 20:07] VITALS: BP 130/90; PULSE 71; TEMP 36.4; O2SAT 100; BMI 23.9
--- OUTSIDE RECORDS SUMMARY | 2024-11-09 20:10 | XMS_ITS | CCD ---
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 Metabolite <100 ng/ml CUTOFF Methamphetamine (U) [Mass/Vol] Negative NEGATIVE NG/ML [facility] Comment on above: <500 ng/ml CUTOFF Opiates Screen Ql (U) Negative NEGATIVE NG/ML [facility] Comment on above: <300 ng/ml CUTOFF oxyCODONE Ql (U) Negative NEGATIVE NG/ML [facility] Comment on above: <100 ng/ml CUTOFF Tricyclic antidepressants Screen Ql (U) Negative NEGATIVE NG/ML [facility] Comment on above: <1000 ng/ml CUTOFF [facility] RAPID TOX SCREEN,URINE WITH REFLEXon 09-24-2023 AMPHETAMINE Negative Normal NEGATIVE [facility] Comment on above: Result Comment: <500 ng/ml CUTOFF Performed By: #### R TOXR #### [place] [address] BARBITURATES Negative Normal NEGATIVE [facility] Comment on above: Result Comment: <200 ng/ml CUTOFF Performed By: #### R TOXR #### Testing performed at [address] [place] [address] BENZODIAZEPINES Negative Normal NEGATIVE [facility] Comment on above: Result Comment: <200 ng/ml CUTOFF Performed By: #### R TOXR #### Testing performed at [address] [address] BUPRENORPHINE Negative Normal NEGATIVE [facility] Comment on above: Result Comment: <12. 5 ng/ml CUTOFF Performed By: #### R TOXR #### Testing performed at [address] [address] CANNABINOIDS Negative Normal NEGATIVE [facility] Comment on above: Result Comment: <50 ng/ml CUTOFF Performed By: #### R TOXR #### [place] [address] COCAINE Negative Normal NEGATIVE [facility] Comment on above: Result Comment: <150 ng/ml CUTOFF Performed By: #### R TOXR #### Testing performed at [place] [id number] FENTANYL Negative Normal NEGATIVE [facility] Comment on above: Result Comment: 20 n g/mL CUTOFF *Unconfirmed Screening Result* Unconfirmed screening results are to be used only for medical treatment purposes. This test has not been approved by the FDA. Performed By: #### R TOXR #### [place] [address] METER DRUG SCREEN [address] Normal [facility] Comment on above: Result Comment: Test ing performed at [place] [address] Performed By: #### R TOXR #### Testing performed at [place] [id number] METHADONE Negative Normal NEGATIVE [facility] Comment on above: Result Comment: Meth adone Metabolite <100 ng/ml CUTOFF Performed By: #### R TOXR #### [place] [address] METHAMPHETAMINE Negative Normal NEGATIVE [facility] Comment on above: Result Comment: <500 ng/ml CUTOFF Performed By: #### R TOXR #### [place] [address] OPIATES Negative Normal NEGATIVE [facility] Comment on above: Result Comment: <300 ng/ml CUTOFF Performed By: #### R TOXR #### [place] [address] OXYCODONE Negative Normal NEGATIVE [facility] Comment on above: Result Comment: <100 ng/ml CUTOFF Performed By: #### R TOXR #### [place] [address] TRICYCLIC ANTIDEPRESSANTS Negative Normal NEGATIVE [facility] Comment on above: Result Comment: <100 0 ng/ml CUTOFF Performed By: #### R TOXR #### [place] [address] TYPE AND SCREEN CROSSMATCH C ONVERTIBLEon 09-24-2023 TYPE AND SCREEN CROSSMATCH CONVERTIBLE WORKUP EXPIRES 09/27/2023,2359 ABO/RH(D) O POSITIVE ANTIBODY SCREEN NEGATIVE Testing performed at [place] [address] Normal [facility] Comment on above: Performed By: #### C TNG #### [place] [address] TYPE AND SCREEN - POSSIBLE T RANSFUSIONon 09-24-2023 ABO and Rh group Nom (Bld ) Positive [facility] Blood group antibody screen Ql Negative [facility] Blood group antibody screen Ql Testing performed at [address] EXPIRATION DATE 09/27/2023,2359 [facility] URINE CULTUREon 09-24-2023 Bacteria identified Cx Nom (U) SPECIMEN DESCRIPTION URINE CLEAN CATCH CULTURE NO GROWTH 2 DAYS * Result Note: Testing performed at [place] [address] * REPORT STATUS 09/26/2023 * Result Note: FINAL * [facility] Comment on above: Performed By: #### C TNG #### [place] [address] ED Clinical Summaryon 2023 ED Clinical Summary ED Clinical Summary [address] [address] ED Clinical Summary Person Information Name: KATHRIN SANTANA/Benjamin Age: 23 Years : 2000 Sex: Female Language: Japanese PCP: Pari Underwood PA-C Marital Status: Single [...] 09/16/2023 09:41:47 09/16/2023 09:41:47 09/16/2023 09:41:47 ADDRESS: [address] [place] [address] [address] [facility] [phone] PHYS DOC NOTES: MEDICAL INFORMATION: Prescriptions Given: Medications to Continue with No Changes Other Medications aripiprazole (aripiprazole 5 mg Tab) 1 Tablets By Mouth every day. Refills: 2. lactobacillus acidophilus (Acidophilus Probiotic Blend) PATIENT EDUCATION INFORMATION: Instructions: Care; Morning Sickness Follow up: With: Address: When: Abdias Qureshi [facility] [address] [place], [facility] [address] [address] Business (8) In 3 days 09/19/2023 With: Address: When: Pari Underwood In 3 days DIAGNOSIS: Nausea/vomiting in ; Normal [facility] ED Note-Physicianon 09-16-19 ED Note-Physician [...] anything for this at the time. 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 Qureshi for DATA COMMUNICATIONS ENGINEER follow-up. We discussed proper care as well [...] Qureshi In 3 days 09/19/2023 EDT [address] [place] [address] Business (1) Additional Instructions: Pari Underwood In 3 days Additional Instructions: Patient Education Care Morning Sickness Attestation Patient seen and evaluated by the physician respiratory therapy assistant. Attending physician was present in the emergency department and supervised care. This visit was performed by both the physician and an APC. I performed all aspects of the MDM as documented. This report was transcribed using voice recognition software. Every effort was made to ensure accuracy, however, inadvertently computerized line builder mistakes may be present. Appropriate healthcare PPE [...] 08/13/2023 S (more content not included)... Normal [facility] Comment on above: Result Comment: Elec tronically Signed By: Pat PRATT, Mikel Bradley\.br\Date and Time Signed: 09/16/23 09:36 EDT\.br\Electronically Co-Signed By: Jl Medina M.D.\.br\Date and Time Co-Signed: 09/16/23 11:27 EDT ED Patient Summaryon 024 ED Patient Summary ED Patient Summary [address] [address] Patient Discharge Instructions Person Information Name: KATHRIN SANTANA Age: 23 Years Arrival Date: 09/16/2023 08:33:42 Discharge Diagnosis: Nausea/vomiting in ; Primary Care Physician: Pari Underwood PA-C Provider Information Primary Provider: Jl Medina M.D. Advanced Warehouse Processor:Mikel Stewart PA-C The exam and treatment you received in the Emergency Department were for an urgent problem and are not intended as complete care. It is important that you follow up with a doctor, nurse practitioner, or physician?s respiratory therapy assistant for ongoing care. If your symptoms [...] Follow-up Instructions: With: Address: When: Abdias Qureshi [address] [place] [address] Business (1) In 3 days 09/19/2023 With: [...] opioids can be used to help relieve lbhoyifm-fx-oxlnng pain and are often prescribed following a [...] not included)... Normal [facility] Family Medicine Office/Clini c Noteon 09-16-2023 Family [...] follow-up appointment with her Dr. Nahed Stewart, laboratory equipment installer tomorrow, during which her laboratory equipment installer has agreed to maintain her current medication [...] advised to maintain close follow-up with the laboratory equipment installer. 2. (Z34.90: Encounter for supervision of normal [...] with voice recognition artificial intelligence software, specifically [employer] and or [employer]. Substitutions may have occurred due to the inherent limitations of voice recognition and artificial intelligence software. ATTESTATION: This note has been generated by [employer] and edited by Brooke Carcamo, Quality Associate Professor Of Theology. Follow-up With When Contact Information Pari Underwood PA-C In 3 months [address] [place] [phone] Additional Instructions: Patient Education Major Depressive Disorder, [...] and Father. Depression: Mother and Father. Normal [facility] Comment on above: Result Comment: Elec tronically Signed By: Pari Underwood PA-C\.br\Date and Time Signed: 09/16/23 12:42 EDT\.br\Electronically Co-Signed By: Jessica Cagle\.br\Date and Time Co-Signed: 09/13/23 12:51 EDT SEROLOGYOrdered By: Rossi Calloway on 09-16-2023 HCG.beta subunit (U) [Moles/Vol] Positive (09/16/23 8:46 AM) Normal [facility] [place] Sero U BetaHcg Qualon 09-16-2023 HCG.beta subunit (U) [Moles/Vol] Positive Normal [facility] Comment on above: Performed By: #### 2 [id number] #### [facility] [address] [place] [address] UA with Cult Rflxon 09-16-19 24 Bilirubin Ql (U) Negative Normal Negative [facility] Comment on above: Performed By: #### 4 [id number] #### [facility] [address] [place] [address] Clarity (U) Clear Normal Clear [facility] Comment on above: Performed By: #### 4 [id number] #### [facility] [address] [place] [address] Color (U) Light-Yellow Normal Yellow [facility] Comment on above: Result Comment: Micr oscopic readings are only performed on those samples that meet specific criteria set forth by [facility]. Performed By: #### 4 [id number] #### [facility] [address] [place] [address] Glucose Ql (U) Negative Normal Negative [facility] Comment on above: Performed By: #### 4 [id number] #### [facility] [address] [place] [address] Hemoglobin Auto test strip (U) [Mass/Vol] Negative Normal Negative [facility] Comment on above: Performed By: #### 4 [id number] #### [facility] [address] [place] [address] Ketones Auto test strip Ql (U) Negative Normal Negative [facility] Comment on above: Performed By: #### 4 [id number] #### [facility] [address] [place] [address] Leukocyte esterase Auto test strip Ql (U) Negative Normal Negative [facility] Comment on above: Performed By: #### 4 [id number] #### [facility] [address] [place] [address] Nitrite Auto test strip Ql (U) Negative Normal Negative [facility] Comment on above: Performed By: #### 4 [id number] #### [facility] [address] [place] [address] pH (U) 6.5 [pH] Invalid Interpretation Code 5.0-9.0 [facility] Comment on above: Performed By: #### 4 [id number] #### [facility] [address] [place] [address] Protein Ql (U) Negative Normal Negative [facility] Comment on above: Performed By: #### 4 [id number] #### [facility] [address] [place] [address] Specific gravity (U) [Rel density] 1.017 Invalid Interpretation Code 1.005-1.030 [facility] Comment on above: Performed By: #### 4 [id number] #### [facility] [address] [place] [address] Urobilinogen (U) [Mass/Vol] Negative Normal Negative [facility] Comment on above: Performed By: #### 4 [id number] #### [facility] [address] [place] [address] Type of Urine collection method Clean Catch Normal [facility] Comment on above: Performed By: #### 4 [id number] #### [facility] [address] [place] [address] URINALYSISOrdered By: SYSTEM SYSTEM on 09-16-2023 Bilirubin Ql (U) Negative Normal Negativemg/dL [facility] UA Auto SS Clarity (U) Clear (09/16/23 8:46 AM) Normal Clear [facility] UA Auto SS Color (U) Light-Yellow 1 (09/16/23 8:46 AM) Normal Yellow [facility] UA Auto SS Comment on above: Interpretive Data: M icroscopic readings are only performed on those samples that meet specific criteria set forth by [facility]. Glucose Ql (U) Negative [...] When: In 3 months Where: [address] [place] [phone] Medications What How Much When Instructions New aripiprazole (aripiprazole 5 mg Tab) 1 Tablets By Mouth Every day Refills: 2 Pickup at [facility] #[id number] Unchanged lactobacillus acidophilus (Acidophilus Probiotic Blend) Pharmacy Information [facility] #[id number]: [address], [place] [phone] Allergies No Known Medication Allergies Problems Ongoing - Any problem that you are currently receiving treatment for. BMI 23.0-23.9, adult Patient Survey You may receive a survey via text or e-mail asking about your office visit. Please share your experience with us by completing your survey. We appreciate your feedback and thank you for choosing us for your care. Normal [facility] ED Note-Physicianon 08-31-19 ED Note-Physician [phone] [id number] #[id number] [facility] CBC with Diffon 08-30-2023 Abs. Basophil 0.04 k/uL Normal 0.00-0.20 [facility] Comment on above: Performed By: #### C DP #### [facility] [address] [place] [address] Bodywork Therapist: Berta Peña MD Abs.Imm.Granulocyte 0.02 k/uL Normal 0.00-0.30 [facility] Comment on above: Performed By: #### C DP #### [facility] [address] [facility] [place] [address] Bodywork Therapist: Berta Peña MD Abs.Neutrophil (Seg) 4.62 k/uL Normal 2.5-7.0 [facility] Comment on above: Performed By: #### C DP #### [facility] [address] [place] [address] Bodywork Therapist: Berta Peña MD Basophils/100 WBC (Bld) 1 % Normal 0-2 [facility] Comment on above: Performed By: #### C DP #### [facility] [address] [place] [id number] Bodywork Therapist: Berta Peña MD Eosinophils (Bld) [#/Vol] 0.09 10*3/uL Normal 0.00-0.40 [facility] Comment on above: Performed By: #### C DP #### [facility] [facility] [address] [id number] Bodywork Therapist: Berta Peña MD Eosinophils/100 WBC (Bld) 1 % Normal 0-5 [facility] Comment on above: Performed By: #### C DP #### [facility] [address] [id number] Bodywork Therapist: Berta Peña MD Erythrocyte distribution width (RBC) [Ratio] 12.8 % Normal 12.1-15.2 [facility] Comment on above: Performed By: #### C DP #### [facility] [address] [id number] Bodywork Therapist: Berta Peña MD Hematocrit (Bld) [Volume fraction] 38.0 % Normal 36.0-46.0 [facility] Comment on above: Performed By: #### C DP #### [facility] [address] [id number] Bodywork Therapist: Berta Peña MD Hemoglobin (Bld) [Mass/Vol] 12.5 g/dL Normal 12.0-16.0 [facility] Comment on above: Performed By: #### C DP #### [facility] [address] [id number] Bodywork Therapist: Berta Peña MD Immature granulocytes/100 WBC (Bld) 0 % Normal 0-5 [facility] Comment on above: Performed By: #### C DP #### [facility] [address] [place] [address] Bodywork Therapist: Berta Peña MD Lymphocytes (Bld) [#/Vol] 1.87 10*3/uL Normal 1.00-4.80 [facility] Comment on above: Performed By: #### C DP #### [facility] [address] [place] [address] Bodywork Therapist: Berta Peña MD Lymphocytes/100 WBC (Bld) 26 % Normal 15-40 [facility] Comment on above: Performed By: #### C DP #### [facility] [address] [place] [address] Bodywork Therapist: Berta Peña MD MCH (RBC) [Entitic mass] 28.2 pg Normal 26.0-34.0 [facility] Comment on above: Performed By: #### C DP #### [facility] [address] [place] [address] Bodywork Therapist: Berta Peña MD MCHC (RBC) [Mass/Vol] 32.9 g/dL Normal 31.0-37.0 [facility] Comment on above: Performed By: #### C DP #### [facility] [address] [place] [address] Bodywork Therapist: Berta Peña MD MCV (RBC) [Entitic vol] 85.8 fL Normal 80.0-100.0 [facility] Comment on above: Performed By: #### C DP #### [facility] [address] [place] [address] Bodywork Therapist: Berta Peña MD Monocytes (Bld) [#/Vol] 0.55 10*3/uL Normal 0.00-1.00 [facility] Comment on above: Performed By: #### C DP #### [facility] [address], [place] [phone] Bodywork Therapist: Berta Peña MD Monocytes/100 WBC (Bld) 8 % Normal 4-8 [facility] Comment on above: Performed By: #### C DP #### [facility] [address], [place] [id number] ([phone] Bodywork Therapist: Berta Peña MD Neutrophil (Seg) 64 % Normal 47-75 [facility] Comment on above: Performed By: #### C DP #### [facility] [address], [place] [phone] ([phone] Bodywork Therapist: Berta Peña MD Platelet mean volume (Bld) [Entitic vol] 9.7 fL Normal 6.0-12.0 [facility] Comment on above: Performed By: #### C DP #### [facility] [address], [place] [phone] ([phone] Bodywork Therapist: Berta Peña MD Platelets (Bld) [#/Vol] 265 10*3/uL Normal 140-450 [facility] Comment on above: Performed By: #### C DP #### [facility] [address], [place] [id number] ([phone]) Bodywork Therapist: Berta Peña MD RBC (Bld) [#/Vol] 4.43 10*6/uL Normal 4.00-5.20 [facility] Comment on above: Performed By: #### C DP #### [facility] [address] [place] [address] Bodywork Therapist: Berta Peña MD WBC (Bld) [#/Vol] 7.2 10*3/uL Normal 4.5-13.5 [facility] Comment on above: Performed By: #### C DP #### [facility] [address] [place] [address] Bodywork Therapist: Berta Peña MD HCG, Quanton 08-30-2023 HCG, Quant 27478.0 mIU/mL High <5 [facility] Comment on above: Result Comment: Non-preg premeno <=5 Postmeno <=8 Male <=3 If HCG results do not concur with clinical observations, additional testing to confirm results is recommended. Performed By: #### B HCG #### [facility] [address] [place] [address] Bodywork Therapist: Berta Peña MD Type + Screenon 08-30-2023 Type + Screen Sample Expiration 09/02/2023,2350 ABO/Rh(D) O POSITIVE Antibody Screen NEGATIVE Normal [facility] Comment on above: Performed By: #### T YS #### [facility] [address] [place] [address] Bodywork Therapist: Berta Peña MD Family Medicine Office/Clini c [...] side effects, signs (more content not included)... [facility] Comment on above: Result Comment: Elec tronically Signed By: Pari Underwood PA-C\.br\Date and Time Signed: 08/19/23 20:54 EDT\.br\Electronically Co-Signed By: Julia Rodriguez.br\Date and Time Co-Signed: 08/13/23 17:18 EDT Formson 08-16-2023 Forms [id number] 1.00TIFF [facility] Ambulatory Visit Summaryon 0 08-13-2023 Ambulatory [...] AM EDT With: Pari Underwood PA-C Where: [facility] Family Medicine Cruz Normal [facility] Patient Educationon 08-13-19 Patient Education [...] pray, or go to a place of methodist. ? Do some deep breathing. To do [...] or salt (sodium). General instructions ? Take iloh-udc-otryjap and prescription medicines only as told by [...] [facility] (more content not included)... Normal [facility] CHLAMYDIA/GCon 08-04-2023 CHLAMYDIA TRACH Not detected Normal NOT DETECTED [facility] Comment on above: Performed By: #### C TNG #### [place] [address] N.GONORRHOEAE Not detected Normal NOT DETECTED [facility] Comment on above: Result Comment: TEST ING PERFORMED BY PCR Testing performed at [address] [address] Performed By: #### C TNG #### [place] [address] CHLAMYDIA/GONOCOCCUS, NAAon 08-04-2023 CHLAMYDIA TRACHOMATIS Not detected NOT DETECTED [facility] NEISSERIA GONORRHOEAE Not detected NOT DETECTED [facility] Comment on above: TESTING PERFORMED BY PCR Testing performed at [address] TRICH VAGon 08-04-2023 TRICH VAG Not detected Normal NOT DETECTED [facility] Comment on above: Result Comment: TEST ING PERFORMED BY PCR Testing performed at [address] [address] Performed By: #### A TV #### [place] [address] TRICHOMONAS VAGINALIS, NAAon 08-04-2023 T. vaginalis rRNA TELMA+probe Ql (Unsp spec) Not detected NOT DETECTED [facility] Comment on above: TESTING PERFORMED BY PCR Testing performed at [address] CHLAMYDIA/GONOCOCCUS, NAAon 04-16-2023 CHLAMYDIA TRACHOMATIS Not detected NOT DETECTED [facility] NEISSERIA GONORRHOEAE Not detected NOT DETECTED [facility] Comment on above: TESTING PERFORMED BY PCR Testing performed at [address] TRICHOMONAS VAGINALIS, NAAon 04-16-2023 T. vaginalis rRNA TELMA+probe Ql (Unsp spec) Not detected NOT DETECTED [facility] Comment on above: TESTING PERFORMED BY PCR Testing performed at [address] XR RIBS WITH CHEST, RIGHTon [...] fractures identified. IMPRESSION: No acute findings. Normal [facility] CHLAMYDIA/GCon 10-23-2022 CHLAMYDIA TRACH Not detected Normal NOT DETECTED [facility] Comment on above: Performed By: #### C TNG #### [place] [address] N.GONORRHOEAE Not detected Normal NOT DETECTED [facility] Comment on above: Result Comment: TEST ING PERFORMED BY PCR Testing performed at [address] [address] Performed By: #### C TNG #### [place] [address] CHLAMYDIA/GONOCOCCUS, NAAon 10-23-2022 CHLAMYDIA TRACHOMATIS Not detected NOT DETECTED [facility] NEISSERIA GONORRHOEAE Not detected NOT DETECTED [facility] Comment on above: TESTING PERFORMED BY PCR Testing performed at [address] TRICH VAGon 10-23-2022 TRICH VAG Not detected Normal NOT DETECTED [facility] Comment on above: Result Comment: TEST ING PERFORMED BY PCR Testing performed at [address] [address] Performed By: #### A TV #### Testing performed at [address] [address] TRICHOMONAS VAGINALIS, NAAon 10-23-2022 T. vaginalis rRNA TELMA+probe Ql (Unsp spec) Not detected NOT DETECTED [facility] Comment on above: TESTING PERFORMED BY PCR Testing performed at [place], [place] [address] [facility] CBC, EDIF, PLATELETon 2021 ABSOLUTE BASOPHIL COUNT 0.0 10*3/uL 0.0 - 0.2 10*3/uL [facility] Comment on above: Testing performed at [place], [place] [address] Basophils/100 WBC (Bld) 0.5 % 0.0 - 2.0 % [facility] Differential cell count method Nom (Bld) AUTO DIFF % [facility] Eosinophils (Bld) [#/Vol] 0.20 10*3/uL 0.0 - 0.7 10*3/uL [facility] Eosinophils/100 WBC (Bld) 1.9 % 0.0 - 11.0 % [facility] Erythrocyte distribution width (RBC) [Ratio] 13.1 % 11.5 - 14.5 % [facility] Hematocrit (Bld) [Volume fraction] 32.9 % Low 36.0 - 48.0 % [facility] Hemoglobin (Bld) [Mass/Vol] 11.5 g/dL Low [facility] Interpretation and review of laboratory results Abnormal [facility] Lymphocytes (Bld) [#/Vol] 1.50 10*3/uL 1.2 - 3.4 10*3/uL [facility] Lymphocytes/100 WBC (Bld) 17.3 % Low 20.0 - 55.0 % [facility] MCH (RBC) [Entitic mass] 31.1 pg 26.0 - 35.0 PG [facility] MCHC (RBC) [Mass/Vol] 35.0 g/dL [facility] MCV (RBC) [Entitic vol] 89.0 fL [facility] Monocytes (Bld) [#/Vol] 0.8 10*3/uL High 0.0 - 0.7 10*3/uL [facility] Monocytes/100 WBC (Bld) 8.6 % 0.0 - 10.0 % [facility] Neutrophils (Bld) [#/Vol] 6.3 10*3/uL 1.4 - 6.5 10*3/uL [facility] Neutrophils/100 WBC (Bld) 71.7 % 37.0 - 75.0 % [facility] Platelet mean volume (Bld) [Entitic vol] 8.4 fL [facility] Platelets (Bld) [#/Vol] 226 10*3/uL 130.0 - 400.0 10*3/uL [facility] RBC (Bld) [#/Vol] 3.69 10*6/uL Low 4.0 - 5.4 10*6/uL [facility] WBC (Bld) [#/Vol] 8.8 10*3/uL 3.6 - 11.0 10*3/uL [facility] GLUCOSE POST LOADINGon 06-02 Glucose 1 Hr post 50 g glucose PO [Mass/Vol] 93 mg/dL [facility] Comment on above: Testing performed at [place], [place] [address] [facility] COLPOSCOPYon 03-13-2021 Doyle Amaro MD 03/13/2021 [...] as needed for mild to moderate pain. [facility] Narrative [Interpretat ion] Study observation general USon 02-06-2021 : 1. Single of 11 weeks and 5 days. 2. heart rate of 168 bpm. 3. US SEBASTIAN 08/23/2021, which is inconsistent with SEBASTIAN by LMP and should be changed. [facility] REFERRING PHYSICIAN: Dr. Amaro TECHNOLOGIST: Ashley Acosta PROCEDURE DATE : 02/06/2021 INDICATIONS: Early gestational, dating LMP 11/09/2020, SEBASTIAN 08/16/2021 PROCEDURE DETAILS A single was noted within the uterus. heart rate of 168 bpm. The CRL measures 5.03 cm , 11 weeks 5 days. FINAL [facility] Radiology Study observation (narrative) [facility] ABO/RH(D) TYPINGon ABO and Rh group Nom (Bld ) Positive [facility] ABO and Rh group Nom (Bld ) Testing performed at [address] ANTIBODY SCREENon 01-14-2021 Blood group antibody screen Ql Negative [facility] EXPIRATION DATE 01/17/2021,2359 [facility] EXPIRATION DATE Testing performed at [place], [place] [address] [facility] CBC, EDIF, PLATELETon 2020 ABSOLUTE BASOPHIL COUNT 0.0 10*3/uL 0.0 - 0.2 10*3/uL [facility] Comment on above: Testing performed at [place], [place] [address] Basophils/100 WBC (Bld) 0.6 % 0.0 - 2.0 % [facility] Differential cell count method Nom (Bld) AUTO DIFF % [facility] Eosinophils (Bld) [#/Vol] 0.10 10*3/uL 0.0 - 0.7 10*3/uL [facility] Eosinophils/100 WBC (Bld) 1.3 % 0.0 - 11.0 % [facility] Erythrocyte distribution width (RBC) [Ratio] 13.5 % 11.5 - 14.5 % [facility] Hematocrit (Bld) [Volume fraction] 35.9 % Low 36.0 - 48.0 % [facility] Hemoglobin (Bld) [Mass/Vol] 12.2 g/dL [facility] Interpretation and review of laboratory results Abnormal [facility] Lymphocytes (Bld) [#/Vol] 2.40 10*3/uL 1.2 - 3.4 10*3/uL [facility] Lymphocytes/100 WBC (Bld) 34.3 % 20.0 - 55.0 % [facility] MCH (RBC) [Entitic mass] 28.7 pg 26.0 - 35.0 PG [facility] MCHC (RBC) [Mass/Vol] 33.9 g/dL [facility] MCV (RBC) [Entitic vol] 84.7 fL [facility] Monocytes (Bld) [#/Vol] 0.7 10*3/uL 0.0 - 0.7 10*3/uL [facility] Monocytes/100 WBC (Bld) 9.7 % 0.0 - 10.0 % [facility] Neutrophils (Bld) [#/Vol] 3.8 10*3/uL 1.4 - 6.5 10*3/uL [facility] Neutrophils/100 WBC (Bld) 54.1 % 37.0 - 75.0 % [facility] Platelet mean volume (Bld) [Entitic vol] 9.3 fL [facility] Platelets (Bld) [#/Vol] 289 10*3/uL 130.0 - 400.0 10*3/uL [facility] RBC (Bld) [#/Vol] 4.23 10*6/uL 4.0 - 5.4 10*6/uL [facility] WBC (Bld) [#/Vol] 7.1 10*3/uL 3.6 - 11.0 10*3/uL [facility] HIV 1+2 Ab+HIV1 p24 Ag IA Ql on 01-14-2021 HIV 1+2 Ab IA Ql Non-Reactive NONREACTIVE [facility] Comment on above: Testing performed at [place], [place] [address] [facility] RAPID TOX SCREEN WITH RELEX TO DRUGMCon 01-14-2021 Amphetamine (U) [Mass/Vol] Negative NEGATIVE NG/ML [facility] Comment on above: <500 ng/ml CUTOFF Barbiturates Screen Ql (U) Negative NEGATIVE NG/ML [facility] Comment on above: <200 ng/ml CUTOFF Benzodiazepines Ql (U) Negative NEGATIVE NG/ML [facility] Comment on above: <150 ng/ml CUTOFF Benzoylecgonine Ql (U) Negative NEGATIVE NG/ML [facility] Comment on above: <150 ng/ml CUTOFF Buprenorphine Ql (U) Negative NEGATIVE NG/ML [facility] Comment on above: <10 ng/ml CUTOFF Testing performed at [address] [address] Cannabinoids Screen Ql (U) Positive Abnormal NEGATIVE NG/ML [facility] Comment on above: <50 ng/ml CUTOFF *Unconfirmed Screening Result* Unconfirmed screening results are to be used only for medical treatment purposes. Interpretation and review of laboratory results Abnormal [facility] Methadone Screen Ql (U) Negative NEGATIVE NG/ML [facility] Comment on above: <200 ng/ml CUTOFF Methamphetamine (U) [Mass/Vol] Negative NEGATIVE NG/ML [facility] Comment on above: <500 ng/ml CUTOFF Opiates Screen Ql (U) Negative NEGATIVE NG/ML [facility] Comment on above: <100 ng/ml CUTOFF oxyCODONE Ql (U) Negative NEGATIVE NG/ML [facility] Comment on above: <100 ng/ml CUTOFF Phencyclidine Screen method >25 ng/mL Ql (U) Negative NEGATIVE NG/ML [facility] Comment on above: <25 ng/ml CUTOFF Propoxyphene+Norpropo xyphene Screen Ql (U) Negative NEGATIVE NG/ML [facility] Comment on above: <300 ng/ml CUTOFF Tricyclic antidepressants Screen Ql (U) Negative NEGATIVE NG/ML [facility] Comment on above: <300 ng/ml CUTOFF [facility] REQUEST FOR MISC LAB SENDOUT on 01-14-2021 Miscellaneous Test 1 SPECIMEN SENT TO REFERENCE LAB FOR TESTING [facility] Comment on above: [id number] CANNABINOID Testing performed at [place] [id number] [facility] Chlamydia/GC,DNA Ampon 08-09 Chlamydia Probe Negative Normal NEG [facility] Comment on above: Result Comment: CHLA [...] target. Performed By: #### S WCGP #### [address] [address] Bodywork Therapist: Geovani Cordon MD Gonorrhea Probe Negative [facility] Comment on above: Result Comment: NEIS [...] target. Performed By: #### S WCGP #### [address] [address] Bodywork Therapist: Geovani Cordon MD Herpes 1+2 Molecularon 08-09 HSV-1, NAAT Negative [facility] Comment on above: Result Comment: HSV- 1 DNA not detected by nucleic acid amplification Performed By: #### H BS, HSVDNA, TREP, AHCV, HIVCMB #### [address] [address] Bodywork Therapist: Geovani Cordon MD HSV-2, NAAT Negative [facility] Comment on above: Result Comment: HSV- 2 DNA not detected by nucleic acid amplification Performed By: #### H BS, HSVDNA, TREP, AHCV, HIVCMB #### [address] [address] Bodywork Therapist: Geovani Cordon MD Vaginitis DNA Probeon 2020 [...] Report Status FINAL 08/09/2020 Normal [facility] Comment on above: Performed By: #### V AGDNA #### [address] [address] Bodywork Therapist: Geovani Cordon MD [facility] [address] [place] [address] Bodywork Therapist: Berta Peña MD HIV Ag/Abon 08-08-2020 HIV Ag/Ab Non-Reactive Normal [facility] Comment on above: Result Comment: No l aboratory evidence of HIV infection. If acute HIV infection is suspected, consider testing for HIV-1 RNA. Performed By: #### H BS, HSVDNA, TREP, AHCV, HIVCMB #### [address] [address] Bodywork Therapist: Geovani Cordon MD Hep B Surf Agon 08-08-2020 Hep B Surf Ag Non-Reactive Normal [facility] Comment on above: Performed By: #### H BS, HSVDNA, TREP, AHCV, HIVCMB #### [address] [address] Bodywork Therapist: Geovani Cordon MD Hep C Abon 08-08-2020 Hep C Ab Non-Reactive Normal [facility] Comment on above: Result Comment: The [...] H BS, HSVDNA, TREP, AHCV, HIVCMB #### [address] [id number] Bodywork Therapist: Geovani Cordon MD Herpes 1+2 Molecularon 08-08 Source: NOT REPORTED Normal [facility] Comment on above: Performed By: #### H BS, HSVDNA, TREP, AHCV, HIVCMB #### [facility] [employer] [address] [place] [address] Bodywork Therapist: Geovani Cordon MD T.pallidum Ab Screenon 08-08 T.pallidum Ab Screen Non-Reactive Normal NR [facility] Comment on above: Result Comment: T. pallidum antibodies are not detected. There is no serological evidence of infection with T. pallidum (early primary syphilis cannot be excluded). Retest in 2-4 weeks if syphilis is clinically suspect. Performed By: #### H BS, HSVDNA, TREP, AHCV, HIVCMB #### [facility] [employer] [address] [place] [address] Bodywork Therapist: Geovani Cordon MD CBC W/DIFFon 09-29-2019 ABS BASOPHILS 0.1 10*3/uL Normal 0.0-0.2 [facility] Comment on above: Order Comment: No: D o not add to previous draw Performed By: #### 5 0103 #### [facility] [address] [place] [address], [facility] ABS IMM GRANS 0.0 10*3/uL Normal 0.0-0.2 [facility] Comment on above: Order Comment: No: D o not add to previous draw Performed By: #### 5 0103 #### [facility] [address] [place] [address], [facility] ABS NEUTROPHILS 2.1 10*3/uL Normal 1.6-7.6 [facility] Comment on above: Order Comment: No: D o not add to previous draw Performed By: #### 5 0103 #### [facility] [address] [place] [address], [facility] Basophils/100 WBC (Bld) 1.2 % High 0.0-1.0 [facility] Comment on above: Order Comment: No: D o not add to previous draw Performed By: #### 5 0103 #### [facility] [address] [place] [address], [facility] Eosinophils (Bld) [#/Vol] 0.3 10*3/uL Normal 0.0-0.5 [facility] Comment on above: Order Comment: No: D o not add to previous draw Performed By: #### 5 0103 #### [facility] [address] [place] [address], [facility] Eosinophils/100 WBC (Bld) 4.5 % Normal 0.0-6.0 [facility] Comment on above: Order Comment: No: D o not add to previous draw Performed By: #### 5 0103 #### [facility] [address] [place] [address], [facility] Erythrocyte distribution width (RBC) [Ratio] 14.0 % Normal 11.5-15.0 [facility] Comment on above: Order Comment: No: D o not add to previous draw Performed By: #### 5 0103 #### [facility] [address] [facility] [place] [address], [facility] Hematocrit (Bld) [Volume fraction] 39.7 % Normal 36.0-45.0 [facility] Comment on above: Order Comment: No: D o not add to previous draw Performed By: #### 5 0103 #### [facility] [address] [facility] [address], [facility] Hemoglobin (Bld) [Mass/Vol] 12.9 g/dL Normal 12.0-15.0 [facility] Comment on above: Order Comment: No: D o not add to previous draw Performed By: #### 5 0103 #### [facility] [address] [place] [address], [facility] IMMATURE GRANS 0.3 % Normal 0.0-1.0 [facility] Comment on above: Order Comment: No: D o not add to previous draw Performed By: #### 5 0103 #### [facility] [address] [place] [address], [facility] Lymphocytes (Bld) [#/Vol] 3.1 10*3/uL Normal 1.2-4.0 [facility] Comment on above: Order Comment: No: D o not add to previous draw Performed By: #### 5 0103 #### [facility] [address] [facility] [place] [address], [facility] Lymphocytes/100 WBC (Bld) 51.7 % High 20.0-45.0 [facility] Comment on above: Order Comment: No: D o not add to previous draw Performed By: #### 5 0103 #### [facility] [address] [place] [address], [facility] MCH (RBC) [Entitic mass] 27.7 pg Normal 27.0-33.0 [facility] Comment on above: Order Comment: No: D o not add to previous draw Performed By: #### 5 0103 #### [facility] [address] [facility] [address], [facility] MCHC (RBC) [Mass/Vol] 32.5 g/dL Normal 32.0-35.0 [facility] Comment on above: Order Comment: No: D o not add to previous draw Performed By: #### 5 0103 #### [facility] [address] [facility] [place] [address], [facility] MCV (RBC) [Entitic vol] 85.2 fL Normal 82.0-98.0 [facility] Comment on above: Order Comment: No: D o not add to previous draw Performed By: #### 5 0103 #### [facility] [address] [place] [address], [facility] Monocytes (Bld) [#/Vol] 0.4 10*3/uL Normal 0.1-1.0 [facility] Comment on above: Order Comment: No: D o not add to previous draw Performed By: #### 5 0103 #### [facility] [address] [place] [address], [facility] MONOS 7.2 % Normal 5.0-12.0 [facility] Comment on above: Order Comment: No: D o not add to previous draw Performed By: #### 5 0103 #### [facility] [address] [place] [address], [place] Neutrophils/100 WBC (Bld) 35.1 % Low 40.0-72.0 [facility] Comment on above: Order Comment: No: D o not add to previous draw Performed By: #### 5 0103 #### [facility] [address] [place] [address], [facility] Nucleated RBC/100 WBC (Bld) [Ratio] 0 % Normal 0-0 [facility] Comment on above: Order Comment: No: D o not add to previous draw Performed By: #### 5 0103 #### [facility] [address] [place] [address], [place] PLAT CNT 237 10*3/uL Normal 150-400 [facility] Comment on above: Order Comment: No: D o not add to previous draw Performed By: #### 5 0103 #### [facility] [address] [place] [address], [facility] RBC (Bld) [#/Vol] 4.66 10*6/uL Normal 3.80-5.00 [facility] Comment on above: Order Comment: No: D o not add to previous draw Performed By: #### 5 [id number] #### [facility] [address] [place] [address], [place] WBC (Bld) [#/Vol] 5.96 10*3/uL Normal 4.00-10.60 [facility] Comment on above: Order Comment: No: D o not add to previous draw Performed By: #### 5 [id number] #### [facility] [address] [place] [address], [place] COMP METABOLIC PANELon 09-28 Albumin [Mass/Vol] 4.5 g/dL Normal 3.5-5.7 [facility] Comment on above: Order Comment: No: D o not add to previous draw Performed By: #### 4 [id number], 72439, 05892, 78030, 42960, 77668 #### [facility] [address] [place] [address], [place] ALKALINE PHOSPH 59 IU/L Normal 40-460 [facility] Comment on above: Order Comment: No: D o not add to previous draw Performed By: #### 4 [id number], 86380, 54683, 17287, 16772, 22172 #### [facility] [address] [place] [address], [place] ALT [Catalytic activity/Vol] 10 U/L Normal 7-52 [facility] Comment on above: Order Comment: No: D o not add to previous draw Performed By: #### 4 [id number], 76585, 03087, 52217, 64757, 31457 #### [facility] [address] [place] [address], [place] AST [Catalytic activity/Vol] 17 U/L Normal 13-39 [facility] Comment on above: Order Comment: No: D o not add to previous draw Performed By: #### 4 [id number], 96614, 99870, 89614, 24907, 83984 #### [facility] [address] [place] [address], [place] Bilirubin [Mass/Vol] 0.4 mg/dL Normal 0.3-1.0 [facility] Comment on above: Order Comment: No: D o not add to previous draw Performed By: #### 4 [id number], 37255, 42917, 64080, 64819, 81467 #### [facility] [address] [place] [address], [place] Calcium [Mass/Vol] 9.5 mg/dL Normal 8.6-10.3 [facility] Comment on above: Order Comment: No: D o not add to previous draw Performed By: #### 4 [id number], 24571, 23328, 18093, 49281, 11600 #### [facility] [address] [place] [address], [place] Chloride [Moles/Vol] 104 mmol/L Normal 98-107 [facility] Comment on above: Order Comment: No: D o not add to previous draw Performed By: #### 4 [id number], 13802, 30178, 03896, 95956, 01203 #### [facility] [address] [place] [address], [place] CO2 [Moles/Vol] 28 mmol/L Normal 21-31 [facility] Comment on above: Order Comment: No: D o not add to previous draw Performed By: #### 4 [id number], 29100, 39612, 30418, 57865, 60499 #### [facility] [address] [place] [address], [place] Creatinine [Mass/Vol] 0.66 mg/dL Normal 0.60-1.20 [facility] Comment on above: Order Comment: No: D o not add to previous draw Performed By: #### 4 [id number], 53424, 47845, 52316, 76382, 23714 #### [facility] [address] [place] [address], [place] GFR/1.73 sq M predicted among blacks MDRD (S/P/Bld) [Vol rate/Area] Calculation not validated for patients under 18 years Abnormal >60 [facility] Comment on above: Order Comment: No: D o not add to previous draw Performed By: #### 4 [id number], 00960, 56809, 74450, 98757, 35140 #### [facility] [address] [place] [address], [place] GFR/1.73 sq M predicted among non-blacks MDRD (S/P/Bld) [Vol rate/Area] Calculation not validated for patients under 18 years Abnormal >60 [facility] Comment on above: Order Comment: No: D o not add to previous draw Performed By: #### 4 [id number], 59230, 25882, 27408, 67236, 43365 #### [facility] [address] [place] [address], [place] Glucose [Mass/Vol] 139 mg/dL High 70-100 [facility] Comment on above: Order Comment: No: D o not add to previous draw Performed By: #### 4 [id number], 84047, 94355, 71279, 78528, 28288 #### [facility] [address] [place] [address], [place] Potassium [Moles/Vol] 3.6 mmol/L Normal 3.5-5.1 [facility] Comment on above: Order Comment: No: D o not add to previous draw Performed By: #### 4 [id number], 54512, 25890, 87714, 65459, 68230 #### [facility] [address] [place] [address], [place] Protein [Mass/Vol] 7.2 g/dL Normal 6.0-8.3 [facility] Comment on above: Order Comment: No: D o not add to previous draw Performed By: #### 4 [id number], 58640, 01136, 25694, 71033, 94892 #### [facility] [address] [place] [address], [place] Sodium [Moles/Vol] 139 mmol/L Normal 136-145 [facility] Comment on above: Order Comment: No: D o not add to previous draw Performed By: #### 4 4396, 24324, 10420, 64846, 14997, 54973 #### [facility] [address] [place] [address], [place] Urea nitrogen [Mass/Vol] 9 mg/dL Normal 7-25 [facility] Comment on above: Order Comment: No: D o not add to previous draw Performed By: #### 4 4396, 12577, 98817, 06972, 58035, 97933 #### [facility] [address] [place] [address], [facility] FREE T3on 09-29-2019 Free T3 [Mass/Vol] 4.2 pg/mL High 2.5-3.9 [facility] Comment on above: Order Comment: No: D o not add to previous draw Performed By: #### 4 [id number], 45298, 51359, 66819, 35016, 87866 #### [facility] [address] [place] [address], [facility] FREE T4on 09-29-2019 Free T4 [Mass/Vol] 0.82 ng/dL Normal 0.71-1.85 [facility] Comment on above: Order Comment: No: D o not add to previous draw Performed By: #### 4 [id number], 55916, 52706, 78025, 70744, 70725 #### [facility] [address] [place] [address], [facility] LIPID PROFILEon 09-29-2019 Cholesterol [Mass/Vol] 153 mg/dL Normal 120-170 [facility] Comment on above: Order Comment: No: D o not add to previous draw Result Comment: CHOL ESTEROL REFERENCE RANGE: 20 YEARS AND OLDER CARDIOVASCULAR RISK Less than 200 mg/dl Low Risk 200 to 239 mg/dl Borderline Risk 240 mg/dl and greater High Risk Performed By: #### 4 [id number], 67883, 06961, 62311, 95867, 31913 #### [facility] [address] [place] [address], [facility] Cholesterol in HDL [Mass/Vol] 56 mg/dL Normal 23-92 [facility] Comment on above: Order Comment: No: D o not add to previous draw Result Comment: Slig ht variation in normal range could be due to gender and/or age. HDL CHOLESTEROL REFERENCE RANGE: 20 years and older Cardiovascular Risk > or =60 mg/dL Desirable 40 TO 59 mg/dL Low Risk <40 mg/dL High Risk Performed By: #### 4 [id number], 90872, 89329, 59671, 58197, 18856 #### [facility] [address] [place] [address], [facility] Cholesterol in LDL [Mass/Vol] 74 mg/dL Normal 0-130 [facility] Comment on above: Order Comment: No: D o not add to previous draw Result Comment: LDL IS A CALCULATION LDL IS ONLY VALID IF THE TRIG IS LESS THAN 400. Performed By: #### 4 [id number], 08422, 56146, 59207, 38732, 62230 #### [facility] [address] [facility] [place] [address], [facility] Cholesterol.total/Cho lesterol in HDL [Mass ratio] 2.7 {ratio} Normal 0.0-4.5 [facility] Comment on above: Order Comment: No: D o not add to previous draw Performed By: #### 4 4396, 77041, 50626, 25035, 15169, 60575 #### [facility] [address] [facility] [address], [facility] NON-HDL CHOLESTEROL 97 mg/dL Normal [facility] Comment on above: Order Comment: No: D o not add to previous draw Performed By: #### 4 [id number], 59202, 78409, 12274, 97689, 83426 #### [facility] [address] [place] [address], [facility] Triglyceride [Mass/Vol] 114 mg/dL Normal 37-148 [facility] Comment on above: Order Comment: No: D o not add to previous draw Result Comment: TRIG LYCERIDE REFERENCE RANGE: 20 YEARS AND OLDER CARDIOVASCULAR RISK LESS THAN 150 mg/dl LOW RISK 150 TO 199 mg/dl BORDERLINE RISK 200 mg/dl AND GREATER HIGH RISK Performed By: #### 4 [id number], 36322, 68583, 48493, 54435, 54236 #### [facility] [address] [place] [address], [facility] VLDL CHOL 23 mg/dL Normal 0-40 [facility] Comment on above: Order Comment: No: D o not add to previous draw Performed By: #### 4 4396, 87691, 22547, 48257, 88425, 64652 #### [facility] [address] SERUM TESTon 09-28 TEST Negative Normal [facility] Comment on above: Order Comment: No: D o not add to previous draw Performed By: #### 4 6473 #### [facility] [address] [facility]. [address] TSH3on 09-29-2019 TSH 3RD GENERATION 1.24 uIU/mL Normal 0.34-5.60 [facility] Comment on above: Order Comment: No: D o not add to previous draw Performed By: #### 4 4396, 98536, 55864, 86815, 87542, 61930 #### [facility] [address] VITAMIN D 25-HYDROXYon 09-28 VITAMIN D 25-OH 42.5 ng/mL Normal 30.0-80.0 [facility] Comment on above: Result Comment: >80. 0 Toxicity possible Performed By: #### 4 4396, 21458, 89700, 26893, 55594, 77641 #### [facility] [address] [facility] [address] Urine Drug Screenon 09-28-19 20 Amphetamine [...] 50 ng/mL) Cocaine Metabolite, Urine Negative NEGATIVE [place] Comment on above: (Positive cutoff 150 ng/mL) Interpretation and review of laboratory results Abnormal [place] MDMA, Urine NOT REPORTED NEGATIVE [place] Methadone Screen, Urine Negative NEGATIVE [place] Comment on above: (Positive cutoff 200 ng/mL) Methamphetamine, Urine Negative NEGATIVE [place] Comment on above: (Positive cutoff 500 ng/mL) Opiates, Urine Negative NEGATIVE [place] Comment on above: (Positive cutoff 100 ng/mL) Oxycodone Screen, Ur Negative NEGATIVE [place] Comment on above: (Positive cutoff 100 ng/mL) Phencyclidine, Urine Negative NEGATIVE [place] Comment on above: (Positive cutoff 25 ng/mL) Propoxyphene, Urine Negative NEGATIVE [place] Comment on above: (Positive cutoff 300 ng/mL) Test Information NOT REPORTED [place] Tricyclic Antidepressants, Urine Negative NEGATIVE [place] Comment on above: (Positive cutoff 300 ng/mL) Drug screen results are to be used for medical purposes only. All positive results are unconfirmed. Testing for employment or legal uses should be sent to a reference laboratory for confirmation. Acetaminophen Levelon 2019 Acetaminophen [Mass/Vol] <5 Low 10 - 30 ug/mL [place] Interpretation and review of laboratory results Abnormal [place] Basic Metabolic Panelon 09-06 Anion gap [Moles/Vol] 15 mmol/L 9 - 17 mmol/L [place] Bun/Cre Ratio 13 [place] Calcium [Mass/Vol] 10.5 mg/dL High 8.4 - 10. 2 mg/dL [place] Chloride [Moles/Vol] 98 mmol/L 98 - 10 7 mmol/L [place] CO2 [Moles/Vol] 23 mmol/L 20 - 31 mmol/L [place] Creatinine [Mass/Vol] 0.61 mg/dL 0.5 - 0.9 mg/dL [place] GFR NOT REPORTED >60 mL/min [place], [place] GFR Non- Pediatric GFR requires additional information. Refer to [facility]DEP website for calculator. >60 mL/min [place] GFR/1.73 sq M predicted among non-blacks MDRD (S/P/Bld) [Vol rate/Area] NOT REPORTED [place] GFR/1.73 sq M predicted among non-blacks MDRD (S/P/Bld) [Vol rate/Area] [place] Comment on above: Average GFR for <20 years old not available. Chronic Kidney Disease: <60 mL/min/1.73sq m Kidney failure: <15 mL/min/1.73sq m eGFR calculated using average adult body mass. Additional eGFR calculator available at: http://www.Wikipixel/multiple_crcl_2011.htm Glucose [Mass/Vol] 106 mg/dL High 60 - 100 mg/dL [place] Potassium [Moles/Vol] 3.9 mmol/L 3.6 - 4.9 mmol/L [place] Sodium [Moles/Vol] 136 mmol/L 135 - 144 mmol/L [place] Urea nitrogen [Mass/Vol] 8 mg/dL 5 - 18 mg/dL [place] CBC Auto Differentialon 09-06 Basophils (Bld) [#/Vol] 0.00 10*3/uL [place] Basophils/100 WBC (Bld) 0 % 0 - 2 % [place] Differential Type YES [place] Eosinophils (Bld) [#/Vol] 0.10 10*3/uL [place] Eosinophils/100 WBC (Bld) 1 % 0 - 5 % [place] Erythrocyte distribution width (RBC) [Ratio] 14.8 % 12.1 - 15.2 % [place] Hematocrit (Bld) [Volume fraction] 40.2 % 36 - 46 % [place] Hemoglobin (Bld) [Mass/Vol] 13.8 g/dL 12 - 16 g/dL [place] Lymphocytes (Bld) [#/Vol] 1.90 10*3/uL [place] Lymphocytes/100 WBC (Bld) 21 % 14 - 41 % [place] MCH (RBC) [Entitic mass] 28.4 pg 25 - 35 pg [place] MCHC (RBC) [Mass/Vol] 34.2 g/dL 31 - 37 g/dL [place] MCV (RBC) [Entitic vol] 83.1 fL 78 - 102 fL [place] Monocytes (Bld) [#/Vol] 0.70 10*3/uL [place] Monocytes/100 WBC (Bld) 7 % 4 - 8 % [place] Platelet mean volume (Bld) [Entitic vol] NOT REPORTED 6 - 12 fL [place], [place] Platelets (Bld) [#/Vol] 238 10*3/uL [place] Platelets (Bld) [#/Vol] NOT REPORTED [place] RBC (Bld) [#/Vol] 4.84 10*6/uL 4 - 5.2 m/uL [place], [place] RBC morphology finding Nom (Bld) NOT REPORTED [place] Segmented neutrophils/100 WBC (Bld) 71 % 45 - 76 % [place] Segs Absolute 6.50 [place] WBC (Bld) [#/Vol] 9.2 10*3/uL [place] WBC (Bld) [#/Vol] NOT REPORTED per 100 WBC [place] WBC Morphology NOT REPORTED [place], [place] Ethanolon 09-27-2019 Ethanol [Mass/Vol] mg/dL <10 mg/dL [place], [place] Ethanol percent <0.010 % [place] HCG Qualitative, Serumon hCG Qual Negative NEGATIVE [place] Comment on above: Specimens with hCG l evels near the threshold of the test (25 mIU/mL) may give a negative or indeterminate result. In such cases, another test should be performed with a new specimen in 48-72 hours. If early is suspected clinically in this setting, correlation with quantitative serum b-hCG level is suggested. [employer] has confirmed the use of plasma for this test. This has not been cleared or approved by the U.S. Food and Drug Administration. The FDA has determined that such clearance is not necessary. Otheron 09-27-2019 Interpretation and review of laboratory results Abnormal [facility] [place] Immature granulocytes (Bld) [#/Vol] NOT REPORTED 0 % [facility] Salicylateon 09-27-2019 Salicylate Lvl <1 Low 3 - 10 mg/dL [facility] [place] TSH without Reflexon 020 TSH Qn 0.49 m[IU]/L [facility] [place] XR HAND RIGHT (MIN 3 VIEWS)o n 09-27-2019 EXAM: XR HAND RIGHT (MIN 3 VIEWS) HISTORY: Reason for exam:->pain to lateral MCs, punched wall COMPARISON: Right hand, 07/20/2014. TECHNIQUE: AP, oblique and lateral views of the right hand. FINDINGS: No acute or intrinsic osseous, articular or soft tissue abnormality is seen. [facility] [place] No acute findings. [place], [employer] Incoming Radiant Results From [employer] - 09/27/2019 11:39 PM EDT EXAM: XR HAND RIGHT (MIN 3 VIEWS) HISTORY: Reason for exam:->pain to lateral MCs, punched wall COMPARISON: Right hand, 07/20/2014. TECHNIQUE: AP, oblique and lateral views of the right hand. FINDINGS: No acute or intrinsic osseous, articular or soft tissue abnormality is seen. IMPRESSION: No acute findings. [facility] [place] CBC Auto Differentialon 11-0 Basophils (Bld) [#/Vol] 0.00 10*3/uL [place] Basophils/100 WBC (Bld) 1 % 0 - 2 % [place] Differential Type YES [facility] [place] Eosinophils (Bld) [#/Vol] 0.00 10*3/uL [place] Eosinophils/100 WBC (Bld) 1 % 0 - 5 % [place] Erythrocyte distribution width (RBC) [Ratio] 14.3 % 12.1 - 15.2 % [place] Hematocrit (Bld) [Volume fraction] 40.7 % 36 - 46 % [place] Hemoglobin (Bld) [Mass/Vol] 13.4 g/dL 12 - 16 g/dL [place] Interpretation and review of laboratory results Abnormal [place] Lymphocytes (Bld) [#/Vol] 1.20 10*3/uL [place] Lymphocytes/100 WBC (Bld) 33 % 14 - 41 % [place] MCH (RBC) [Entitic mass] 27.3 pg 25 - 35 pg [place] MCHC (RBC) [Mass/Vol] 33.0 g/dL 31 - 37 g/dL [place] MCV (RBC) [Entitic vol] 82.8 fL 78 - 102 fL [place], [place] Monocytes (Bld) [#/Vol] 0.40 10*3/uL [place], [place] Monocytes/100 WBC (Bld) 12 % High 4 - 8 % [place] Platelet mean volume (Bld) [Entitic vol] NOT REPORTED 6 - 12 fL [place], [place] Platelets (Bld) [#/Vol] 235 10*3/uL [place] Platelets (Bld) [#/Vol] NOT REPORTED [place] RBC (Bld) [#/Vol] 4.92 10*6/uL 4 - 5.2 m/uL [place] RBC morphology finding Nom (Bld) NOT REPORTED [place] Segmented neutrophils/100 WBC (Bld) 53 % 45 - 76 % [place] Segs Absolute 2.10 Low [place] WBC (Bld) [#/Vol] 3.8 10*3/uL Low [place] WBC (Bld) [#/Vol] NOT REPORTED per 100 WBC [place] WBC Morphology NOT REPORTED [place] Comprehensive Metabolic Pane bonita 01-12-2019 Albumin [Mass/Vol] 4.8 g/dL High 3.2 - 4.5 g/dL [place] Albumin/Globulin [Mass ratio] NOT REPORTED [place], [place] ALP [Catalytic activity/Vol] 88 U/L 47 - 119 U/L [place] ALT [Catalytic activity/Vol] 12 U/L 5 - 33 U/L [place] Anion gap [Moles/Vol] 17 mmol/L 9 - 17 mmol/L [place] AST [Catalytic activity/Vol] 24 U/L <32 [place] Bilirubin Ql (U) 0.46 mg/dL 0.3 - 1.2 mg/dL [place] Bun/Cre Ratio 14 [place], [place] Calcium [Mass/Vol] 10.4 mg/dL High 8.4 - 10. 2 mg/dL [place] Chloride [Moles/Vol] 101 mmol/L 98 - 10 7 mmol/L [place] CO2 [Moles/Vol] 22 mmol/L 20 - 31 mmol/L [place] Creatinine [Mass/Vol] 0.65 mg/dL 0.5 - 0.9 mg/dL [place] GFR NOT REPORTED >60 mL/min [place] GFR Non- Pediatric GFR requires additional information. Refer to [facility] website for calculator. >60 mL/min [place] GFR/1.73 sq M predicted among non-blacks MDRD (S/P/Bld) [Vol rate/Area] NOT REPORTED [place] GFR/1.73 sq M predicted among non-blacks MDRD (S/P/Bld) [Vol rate/Area] [place] Comment on above: Average GFR for <20 years old not available. Chronic Kidney Disease: <60 mL/min/1.73sq m Kidney failure: <15 mL/min/1.73sq m eGFR calculated using average adult body mass. Additional eGFR calculator available at: http://www.Wikipixel/multiple_crcl_2012.htm Glucose [Mass/Vol] 90 mg/dL 60 - 100 mg/dL [place] Interpretation and review of laboratory results Abnormal [place] Potassium [Moles/Vol] 3.9 mmol/L 3.6 - 4.9 mmol/L [place] Protein [Mass/Vol] 8.7 g/dL High 6 - 8 g/dL [place] Sodium [Moles/Vol] 140 mmol/L 135 - 144 mmol/L [place] Urea nitrogen [Mass/Vol] 9 mg/dL 5 - 18 mg/dL [place] HCG Qualitative, Serumon hCG Qual Negative NEGATIVE [place] Comment on above: Specimens with hCG l evels near the threshold of the test (25 mIU/mL) may give a negative or indeterminate result. In such cases, another test should be performed with a new specimen in 48-72 hours. If early is suspected clinically in this setting, correlation with quantitative serum b-hCG level is suggested. [facility] has confirmed the use of plasma for this test. This has not been cleared or approved by the U.S. Food and Drug Administration. The FDA has determined that such clearance is not necessary. Otheron 01-12-2019 Immature granulocytes (Bld) [#/Vol] NOT REPORTED [place] HCG QUALITATIVE, URINEon HCG ( test) Ql (U) Negative [facility] Otheron 12-18-2018 Interpretation and review of laboratory results Abnormal [facility] URINALYSIS, MACROon 12-19-19 19 Bilirubin Ql (U) Negative NEGATIVE [facility] Clarity (U) CLEAR CLEAR [facility] Color (U) YELLOW YELLOW [facility] Glucose Test strip (U) [Mass/Vol] Negative NEGATIVE mg/dl [facility] Hemoglobin Ql (U) Negative NEGATIVE [facility] Ketones (U) [Mass/Vol] Negative NEGATIVE mg/dl [facility] Leukocyte esterase Test strip Ql (U) Negative NEGATIVE [facility] Nitrite Ql (U) Negative NEGATIVE [facility] pH (U) 7.0 [pH] [facility] Protein Ql (U) TRACE Abnormal NEGATIVE mg/dl [facility] Specific gravity (U) [Rel density] 1.025 [facility] Urobilinogen (U) [Mass/Vol] 0.2 [facility] URINE HCG QUALon 12-18-2018 Beta HCG ( test) Ql (U) Negative Normal [facility] URINE MACROSCOPICon 12-19-19 19 Bilirubin Ql (U) Negative Normal NEGATIVE [facility] Clarity (U) CLEAR Normal CLEAR [facility] Color (U) YELLOW Normal YELLOW [facility] Glucose Ql (U) Negative Normal NEGATIVE [facility] pH (U) 7.0 [pH] Normal 5.0-7.0 [facility] Protein (U) [Mass/Vol] TRACE Abnormal NEGATIVE [facility] URINE HEMOGLOBIN Negative Normal NEGATIVE [facility] URINE KETONE Negative Normal NEGATIVE [facility] URINE LEUKOTEST Negative Normal NEGATIVE [facility] URINE NITRATES Negative Normal NEGATIVE [facility] URINE SPEC GRAVITY 1.025 Normal 1.010-1.025 [facility] Urobilinogen Qn (U) 0.2 {Manuel'U}/dL Normal 0.2-1.0 [facility] URINE MICROSCOPICon 12-19-19 19 Bacteria LM.HPF (Urine sed) [#/Area] TRACE Abnormal NEGATIVE [facility] Casts LM.LPF (Urine sed) [#/Area] NONE Normal NONE [facility] CRYSTAL NONE Normal NONE [facility] Epithelial cells LM.HPF (Urine sed) [#/Area] 10 TO 20 Normal [facility] Mucus Ql (Urine sed) Negative Normal NEGATIVE [facility] RBC (U) [#/Vol] Negative Normal NEGATIVE [facility] URINE COMMENT CULTURE CRITERIA NOT MET, NO CULTURE PERFORMED. Normal [facility] WBC (U) [#/Vol] 1 TO 5 Normal NEGATIVE [facility] Bacteria LM.HPF (Urine sed) [#/Area] TRACE Abnormal NEGATIVE [facility] Casts LM.LPF (Urine sed) [#/Area] NONE NONE /LPF [facility] Crystals LM Nom (Urine sed) NONE NONE [facility] Epithelial cells LM Ql (Urine sed) 10 TO 20 /HPF [facility] Mucus Ql (Urine sed) Negative NEGATIVE [facility] RBC LM.HPF (Urine sed) [#/Area] Negative NEGATIVE /HPF [facility] Urine sediment comments LM Vinnie (Urine sed) CULTURE CRITERIA NOT MET, NO CULTURE PERFORMED. [facility] WBC LM.HPF (Urine sed) [#/Area] 1 TO 5 NEGATIVE /HPF [facility] Strep Screen Group A Throato n 12-16-2018 S. pyogenes Ag IA Ql (Unsp spec) Rapid Strep A negative. A negative Rapid Group A Strep Screen result does not rule out the possibility of Group A Streptococci in the specimen. The [place] [employer] recommends confirmation testing. Therefore, a Group A Strep DNA test will be performed. [place] Special Requests NOT REPORTED [place] Specimen Description .THROAT [place] XR CHEST STANDARD (2 VW)on 1 [facility] [place] [place] EXAM: XR CHEST (2 VW) HISTORY: Reason for exam:->cough COMPARISON: None. TECHNIQUE: 2 views chest FINDINGS: Heart size normal. Lungs clear. Bony thorax and upper abdomen normal. [place] Incoming Radiant Results From [employer] - 12/16/2018 5:28 PM EDT EXAM: XR CHEST (2 VW) HISTORY: Reason for exam:->cough COMPARISON: None. TECHNIQUE: 2 views chest FINDINGS: Heart size normal. Lungs clear. Bony thorax and upper abdomen normal. IMPRESSION: Negative chest. [place] Vital Signs Date Time Vital Sign Value Performing Clinician Shadi ag 04-13-2024 09:58-0500 Body weight 74.57 kg Jewell MATTHEWS Work Phone: [facility] 04-13-2024 09:58-0500 Diastolic blood pressure 80 mm[Hg] Jewell MATTHEWS Work Phone: [facility] 04-13-2024 09:58-0500 Systolic blood pressure 122 mm[Hg] Jewell MATTHEWS Work Phone: [facility] 04-06-2024 09:13-0500 Body weight 73.66 kg Meircentroseo DO Work Phone: [facility] 04-06-2024 09:13-0500 Diastolic blood pressure 74 mm[Hg] Meir Jamal DO Work Phone: [facility] 04-06-2024 09:13-0500 Systolic blood pressure 120 mm[Hg] Meir Jamal DO Work Phone: [facility] 03-06-2024 [id number] Body weight 72.18 kg Jewell Macedo PA Work Phone: [facility] 03-06-2024 10:11-0500 Diastolic blood pressure 64 mm[Hg] Jewell Macedo PA Work Phone: [facility] 03-06-2024 10:11-0500 Systolic blood pressure 110 mm[Hg] Jewell Macedo PA Work Phone: [facility] 02-21-2024 10:13-0500 Body height 160 cm Doyle Amaro MD Work Phone: [facility] 02-21-2024 10:13-0500 Body mass index (BMI) [Ratio] 28.52 kg/m2 Doyle Amaro MD Work Phone: [facility] 02-21-2024 10:13-0500 Body weight 73.03 kg Doyle Amaro MD Work Phone: [facility] 02-21-2024 10:13-0500 Diastolic blood pressure 70 mm[Hg] Doyle Amaro MD Work Phone: [facility] 02-21-2024 10:13-0500 Systolic blood pressure 105 mm[Hg] oDyle Amaro MD Work Phone: [facility] 02-07-2024 11:12-0500 Body mass index (BMI) [Ratio] 28.63 kg/m2 Malka Allison [employer]PER[employer] Work Phone: [facility] 02-07-2024 11:12-0500 Body weight 73.3 kg Malka Allison [employer] SUPERVISOR Work Phone: [facility] 02-07-2024 11:12-0500 Diastolic blood pressure 60 mm[Hg] Malka Allison [employer] SUPERVISOR Work Phone: [facility] 02-07-2024 11:12-0500 Systolic blood pressure 108 mm[Hg] Malka Allison [employer] SUPERVISOR Work Phone: [facility] 01-10-2024 09:44-0500 Body mass index (BMI) [Ratio] 27.56 kg/m2 Nahed Stewart MD Work Phone: [facility] 01-10-2024 09:44-0500 Body weight 70.58 kg Nahed Stewart MD Work Phone: [facility] 01-10-2024 09:44-0500 Diastolic blood pressure 60 mm[Hg] Nahed Stewart MD Work Phone: [facility] 01-10-2024 09:44-0500 Systolic blood pressure 100 mm[Hg] Nahed Stewart MD Work Phone: [facility] 12-13-2023 09:17-0400 Body mass index (BMI) [Ratio] 26.04 kg/m2 Nahed Stewart MD Work Phone: [facility] 12-13-2023 09:17-0400 Body weight 66.68 kg Nahed Stewart MD Work Phone: [facility] 12-13-2023 09:17-0400 Diastolic blood pressure 60 mm[Hg] Nahed Stewart MD Work Phone: [facility] 12-13-2023 09:17-0400 Systolic blood pressure 100 mm[Hg] Nahed Stewart MD Work Phone: [facility] 11-11-2023 13:33-0400 Body mass index (BMI) [Ratio] 24.98 kg/m2 Nahed Stewart MD Work Phone: [employer] [facility] 11-11-2023 13:33-0400 Body weight 63.96 kg Nahed Stewart MD Work Phone: [facility] 11-11-2023 13:33-0400 Diastolic blood pressure 56 mm[Hg] Nahed Stewart MD Work Phone: [facility] 11-11-2023 13:33-0400 Systolic blood pressure 112 mm[Hg] Nahed Stewart MD Work Phone: [facility] 10-14-2023 13:27-0400 Body height 160 cm Doyle Amaro MD Work Phone: [facility] 10-14-2023 13:27-0400 Body mass index (BMI) [Ratio] 24.62 kg/m2 Doyle Amaro MD Work Phone: [facility] 10-14-2023 13:27-0400 Body weight 63.05 kg Doyle Amaro MD Work Phone: [facility] 10-14-2023 13:27-0400 Diastolic blood pressure 62 mm[Hg] Doyle Amaro MD Work Phone: [facility] 10-14-2023 13:27-0400 Systolic blood pressure 120 mm[Hg] Doyle Amaro MD Work Phone: [facility] 09-26-2023 19:52-0400 Diastolic blood pressure 86 mm[Hg] Justin Hewitt [facility] 09-26-2023 19:52-0400 Heart rate 96 /min Justin Hewitt [facility] 09-26-2023 19:52-0400 Mean blood pressure 97 mm[Hg] Justin Hewitt [facility] 09-26-2023 19:52-0400 Respiratory rate 23 /min Justin Hewitt [facility] 09-26-2023 19:52-0400 SaO2% (BldA) [Mass fraction] 99 % Justin Hewitt [facility] 09-26-2023 19:52-0400 Systolic blood pressure 120 mm[Hg] Justin Hewitt [facility] 09-26-2023 18:46-0400 Diastolic blood pressure 81 mm[Hg] Justin Hewitt [facility] 09-26-2023 18:46-0400 Heart rate 89 /min Justin Kash [facility] 09-26-2023 18:46-0400 Mean blood pressure 96 mm[Hg] Justin Kash [facility] 09-26-2023 18:46-0400 Respiratory rate 18 /min Justin Kash [facility] 09-26-2023 18:46-0400 SaO2% (BldA) [Mass fraction] 98 % Justin Kash [facility] 09-26-2023 18:46-0400 Systolic blood pressure 126 mm[Hg] Justin Kash [facility] 09-26-2023 18:00-0400 Heart rate 97 /min Justin Kash [facility] 09-26-2023 18:00-0400 Mean blood pressure 94 mm[Hg] Justin Kash [facility] 09-26-2023 18:00-0400 SaO2% (BldA) [Mass fraction] 100 % Justin Kash [facility] 09-26-2023 18:00-0400 Systolic blood pressure 121 mm[Hg] Justin Kash [facility] 09-26-2023 16:57-0400 Body temperature 98.96 [degF] Justin Kash [facility] 09-26-2023 16:57-0400 Heart rate 94 /min Justin Kash [facility] 09-26-2023 16:57-0400 Respiratory rate 18 /min Justin Kash [facility] 09-26-2023 16:42-0400 Body temperature 98.6 [degF] Justin Kash [facility] 09-26-2023 16:42-0400 Heart rate 106 /min Justin Kash [facility] 09-26-2023 16:42-0400 Respiratory rate 18 /min Justin Kash [facility] 09-24-2023 13:28-0400 Body height 160 cm [place] [id number] [facility] 09-24-2023 13:28-0400 Body mass index (BMI) [Ratio] 23.91 kg/m2 Av[address] 09-24-2023 13:28-0400 Body weight 61.[address] 09-24-2023 13:28-0400 Diastolic blood pressure 68 mm[Hg] [address] 09-24-2023 13:28-0400 Systolic blood pressure 112 mm[Hg] [address] 09-16-2023 08:37-0400 Body temperature 98.24 [degF] [facility] 09-16-2023 08:37-0400 Diastolic blood pressure 78 mm[Hg] [facility] 09-16-2023 08:37-0400 Heart rate 76 /min [facility] 09-16-2023 08:37-0400 Respiratory rate 18 /min [facility] 09-16-2023 08:37-0400 SaO2% (BldA) [Mass fraction] 100 % [facility] 09-16-2023 08:37-0400 Systolic blood pressure 126 mm[Hg] [facility] 09-13-2023 10:56-0400 Blood Pressure Location Pari Underwood [facility] 09-13-2023 10:56-0400 Body temperature 97.88 [degF] Pari Underwood [facility] 09-13-2023 10:56-0400 Diastolic blood pressure 68 mm[Hg] Pari Underwood [facility] 09-13-2023 10:56-0400 Heart rate 74 /min Pari Underwood [facility] 09-13-2023 10:56-0400 Respiratory rate 18 /min Pari Underwood [facility] 09-13-2023 10:56-0400 SaO2% (BldA) [Mass fraction] 98 % Pari Underwood [facility] 09-13-2023 10:56-0400 Systolic blood pressure 110 mm[Hg] Pari Underwood [facility] 08-13-2023 14:20-0400 Blood Pressure Location Pari Underwood [facility] 08-13-2023 14:20-0400 Body temperature 97.88 [degF] Pari Underwood [facility] 08-13-2023 14:20-0400 Diastolic blood pressure 80 mm[Hg] Pari Underwood [facility] 08-13-2023 14:20-0400 Heart rate 88 /min Pari Underwood [facility] 08-13-2023 14:20-0400 Respiratory rate 16 /min Pari Underwood [facility] 08-13-2023 14:20-0400 SaO2% (BldA) [Mass fraction] 99 % Pari Underwood [facility] 08-13-2023 14:20-0400 Systolic blood pressure 122 mm[Hg] Pari Underwood [facility] 08-04-2023 14:57-0400 Body mass index (BMI) [Ratio] 22.96 kg/m2 Nahed Stewart MD Work Phone: [facility] 08-04-2023 14:57-0400 Body weight 58.79 kg Nahed Stewart MD Work Phone: [facility] 08-04-2023 14:57-0400 Diastolic blood pressure 62 mm[Hg] Nahed Stewart MD Work Phone: [facility] 08-04-2023 14:57-0400 Systolic blood pressure 120 mm[Hg] Nahed Stewart MD Work Phone: [employer] [facility] 04-16-2023 14:16-0500 Body mass index (BMI) [Ratio] 20.87 kg/m2 Nahed Stewart MD Work Phone: [employer] [facility] 04-16-2023 14:16-0500 Body weight 53.43 kg Nahed Stewart MD Work Phone: [facility] 04-16-2023 14:16-0500 Diastolic blood pressure 76 mm[Hg] Nahed Stewart MD Work Phone: [employer] [facility] 04-16-2023 14:16-0500 Systolic blood pressure 118 mm[Hg] Nahed Stewart MD Work Phone: [facility] 10-23-2022 09:25-0400 Body height 160 cm Nahed Stewart MD Work Phone: [facility] 10-23-2022 09:25-0400 Body mass index (BMI) [Ratio] 21.33 kg/m2 Nahed Stewart MD Work Phone: [facility] 10-23-2022 09:25-0400 Body weight 54.61 kg Nahed Stewart MD Work Phone: [facility] 10-23-2022 09:25-0400 Diastolic blood pressure 68 mm[Hg] Nahed Stewart MD Work Phone: [facility] 10-23-2022 09:25-0400 Systolic blood pressure 100 mm[Hg] Nahed Stewart MD Work Phone: [facility] 09-01-2022 13:16-0400 Body mass index (BMI) [Ratio] 21.36 kg/m2 Nahed Stewart MD Work Phone: [facility] 09-01-2022 13:16-0400 Body weight 54.7 kg Nahed Stewart MD Work Phone: [facility] 09-01-2022 13:16-0400 Diastolic blood pressure 66 mm[Hg] Nahed Stewart MD Work Phone: [facility] 09-01-2022 13:16-0400 Systolic blood pressure 120 mm[Hg] Nahed Stewart MD Work Phone: [facility] 06-08-2022 13:20-0400 Body temperature 98.71 [degF] [facility]ona 06-08-2022 13:20-0400 Diastolic blood pressure 70 mm[Hg] [facility] 06-08-2022 13:20-0400 Heart [facility] 82 /[facility] 06-08-2022 13:20-0400 Respiratory rate 18 /min [facility] 06-08-2022 13:20-0400 SaO2% (BldA) [Mass fraction] 97 % [facility] 06-08-2022 13:20-0400 Systolic blood pressure 117 mm[Hg] [facility] 04-22-2022 09:40-0500 Body mass index (BMI) [Ratio] 21.01 kg/m2 Nahed Stewart MD Work Phone: [facility] 04-22-2022 09:40-0500 Body weight 53.8 kg Nahed Stewart MD Work Phone: [facility] 04-22-2022 09:40-0500 Diastolic blood pressure 62 mm[Hg] Nahed Stewart MD Work Phone: [facility] 04-22-2022 09:40-0500 Systolic blood pressure 110 mm[Hg] Nahed Stewart MD Work Phone: [facility] 03-20-2022 14:35-0500 Body mass index (BMI) [Ratio] 22.21 kg/m2 Nahed Stewart MD Work Phone: [facility] 03-20-2022 14:35-0500 Body weight 56.88 kg Nahed Stewart MD Work Phone: [facility] 03-20-2022 14:35-0500 Diastolic blood pressure 70 mm[Hg] Nahed Stewart MD Work Phone: [facility] 03-20-2022 14:35-0500 Systolic blood pressure 118 mm[Hg] Nahed Stewart MD Work Phone: 6(223)130-244705 [place] [address] 10-24-2021 14:45-0400 Body height 160 cm Nahed Stewart MD Work Phone: 1(904)705-789505 [place] [address] 10-24-2021 14:45-0400 Body mass index (BMI) [Ratio] 23.03 kg/m2 Nahed Stewart MD Work Phone: [facility] 10-24-2021 14:45-0400 Body weight 58.97 kg Nahed Stewart MD Work Phone: [facility] 10-24-2021 14:45-0400 Diastolic blood pressure 62 mm[Hg] Nahed Stewart MD Work Phone: 1(066)978-409405 [place] [address] 10-24-2021 14:45-0400 Systolic blood pressure 120 mm[Hg] Nahed Stewart MD Work Phone: 7(734)396-051505 [place] [address] 08-05-2021 09:20-0400 Body mass index (BMI) [Ratio] 28.09 kg/m2 Nahed Stewart MD Work Phone: [facility] 08-05-2021 09:20-0400 Body weight 71.94 kg Nahed Stewart MD Work Phone: [facility] 08-05-2021 09:20-0400 Diastolic blood pressure 56 mm[Hg] Nahed Stewart MD Work Phone: [facility] 08-05-2021 09:20-0400 Systolic blood pressure 98 mm[Hg] Nahed Stewart MD Work Phone: [facility] 07-28-2021 09:03-0400 Body height 160 cm Doyle Amaro MD Work Phone: [facility] 07-28-2021 09:03-0400 Body mass index (BMI) [Ratio] 27.46 kg/m2 Doyle Amaro MD Work Phone: [facility] 07-28-2021 09:03-0400 Body weight 70.31 kg Doyle Amaro MD Work Phone: [facility] 07-28-2021 09:03-0400 Diastolic blood pressure 64 mm[Hg] Doyle Amaro MD Work Phone: [facility] 07-28-2021 09:03-0400 Systolic blood pressure 140 mm[Hg] Doyle Amaro MD Work Phone: [facility] 07-14-2021 09:00-0400 Body height 160 cm Malka Allison [employer] SUPERVISOR Work Phone: [facility] 07-14-2021 09:00-0400 Body mass index (BMI) [Ratio] 26.75 kg/m2 Malka Allison [employer] SUPERVISOR Work Phone: [facility] 07-14-2021 09:00-0400 Body weight 68.49 kg Malka Allison [employer]ER SUPERVISOR Work Phone: [facility] 07-14-2021 09:00-0400 Diastolic blood pressure 62 mm[Hg] Malka Allison [employer]ER SUPERVISOR Work Phone: [facility] 07-14-2021 09:00-0400 Systolic blood pressure 106 mm[Hg] Malka Allison [employer]ER SUPERVISOR Work Phone: [facility] 06-30-2021 09:33-0400 Body height 160 cm Doyle Amaro MD Work Phone: [facility] 06-30-2021 09:33-0400 Body mass index (BMI) [Ratio] 26.04 kg/m2 Doyle Amaro MD Work Phone: [facility] 06-30-2021 09:33-0400 Body weight 66.68 kg Doyle Amaro MD Work Phone: [facility] 06-30-2021 09:33-0400 Diastolic blood pressure 64 mm[Hg] Doyle Amaro MD Work Phone: [facility] 06-30-2021 09:33-0400 Systolic blood pressure 102 mm[Hg] Doyle Amaro MD Work Phone: [facility] 06-16-2021 09:08-0400 Body height 160 cm Malka Allison [employer]ER SUPERVISOR Work Phone: [facility] 06-16-2021 09:08-0400 Body mass index (BMI) [Percentile] Per age and sex 84.17 % Malka Allison [employer]ER SUPERVISOR Work Phone: [facility] 06-16-2021 09:08-0400 Body mass index (BMI) [Ratio] 25.86 kg/m2 Malka Allison [employer]AND[employer]ER SUPERVISOR Work Phone: [facility] 06-16-2021 09:08-0400 Body weight 66.22 kg Malka Allison [employer]AND[employer]ER SUPERVISOR Work Phone: [facility] 06-16-2021 09:08-0400 Diastolic blood pressure 64 mm[Hg] Malka Allison WRAPPER [employer]AYER[employer]SAND[employer]ER SUPERVISOR Work Phone: [facility] 06-16-2021 09:08-0400 Systolic blood pressure 106 mm[Hg] Malka Allison [employer]PER [employer]SAND[employer]ER SUPERVISOR Work Phone: [facility] 06-02-2021 09:07-0400 Body mass index (BMI) [Percentile] Per age and sex 79.15 % Nahed Stewart MD Work Phone: [facility] 06-02-2021 09:07-0400 Body mass index (BMI) [Ratio] 24.8 kg/m2 Nahed Stewart MD Work Phone: [facility] 06-02-2021 09:07-0400 Body weight 63.5 kg Nahed Stewart MD Work Phone: [facility] 06-02-2021 09:07-0400 Diastolic blood pressure 56 mm[Hg] Nahed Stewart MD Work Phone: [facility] 06-02-2021 09:07-0400 Systolic blood pressure 100 mm[Hg] Nahed Stewart MD Work Phone: [facility] 05-13-2021 10:08-0500 Body height 160 cm Malkaignacia Allison WRAPPER LAYER[employer]SAND[employer]ER SUPERVISOR Work Phone: [facility] 05-13-2021 10:08-0500 Body mass index (BMI) [Percentile] Per age and sex 72.35 % Malkaignacia Allison WRAPPER LAYER[employer]SANDB[employer]ER SUPERVISOR Work Phone: [facility] 05-13-2021 10:08-0500 Body mass index (BMI) [Ratio] 23.74 kg/m2 Malka Betancuram WR[employer]AYER[employer]SANDB[employer]ER SUPERVISOR Work Phone: [facility] 05-13-2021 10:08-0500 Body weight 60.78 kg Malkaignacia Allison WRAPPER LAYER[employer]SANDBLASTER SUPERVISOR Work Phone: [facility] 05-13-2021 10:08-0500 Diastolic blood pressure 62 mm[Hg] Malka Estefany [employer]ER[employer]SAND[employer]ER SUPERVISOR Work Phone: [facility] 05-13-2021 10:08-0500 Systolic blood pressure 104 mm[Hg] Malka Allison [employer]PER [employer]SAND[employer]ER SUPERVISOR Work Phone: [facility] 04-22-2021 14:24-0500 Body mass index (BMI) [Percentile] Per age and sex 72.49 % Nahed Stewart MD Work Phone: [facility] 04-22-2021 14:24-0500 Body mass index (BMI) [Ratio] 23.74 kg/m2 Nahed Stewart MD Work Phone: [facility] 04-22-2021 14:24-0500 Body weight 60.78 kg Nahed Stewart MD Work Phone: [facility] 04-22-2021 14:24-0500 Diastolic blood pressure 70 mm[Hg] Nahed Stewart MD Work Phone: [facility] 04-22-2021 14:24-0500 Systolic blood pressure 112 mm[Hg] Nahed Stewart MD Work Phone: [facility] 03-13-2021 10:20-0500 Body height 160 cm Doyle Amaro MD Work Phone: [facility] 03-13-2021 10:20-0500 Body mass index (BMI) [Percentile] Per age and sex 59.91 % Doyle Amaro MD Work Phone: [facility] 03-13-2021 10:20-0500 Body mass index (BMI) [Ratio] 22.32 kg/m2 Doyle Amaro MD Work Phone: [facility] 03-13-2021 10:20-0500 Body weight 57.15 kg Doyle Amaro MD Work Phone: [facility] 03-13-2021 10:20-0500 Diastolic blood pressure 76 mm[Hg] Doyle Amaro MD Work Phone: [facility] 03-13-2021 10:20-0500 Systolic blood pressure 122 mm[Hg] Doyle Amaro MD Work Phone: [facility] 02-06-2021 09:17-0500 Body height 160 cm Doyle Amaro MD Work Phone: [facility] 02-06-2021 09:17-0500 Body mass index (BMI) [Percentile] Per age and sex 56.34 % Doyle Amaro MD Work Phone: [facility] 02-06-2021 09:17-0500 Body mass index (BMI) [Ratio] 21.97 kg/m2 Doyle Amaro MD Work Phone: [facility] 02-06-2021 09:17-0500 Body weight 56.25 kg Doyle Amaro MD Work Phone: [facility] 02-06-2021 09:17-0500 Diastolic blood pressure 70 mm[Hg] Doyle Amaro MD Work Phone: [facility] 02-06-2021 09:17-0500 Systolic blood pressure 112 mm[Hg] Doyle Amaro MD Work Phone: [facility] 01-14-2021 09:45-0500 Body height 160 cm Avg [address]jit Gal [id number] [facility] 01-14-2021 09:45-0500 Body mass index (BMI) [Percentile] Per age and sex 60.4 % Avg Gurjit Gal [id number] [facility] 01-14-2021 09:45-0500 Body mass index (BMI) [Ratio] 22.32 kg/m2 Avg Gurjit Gal [id number] [facility] 01-14-2021 09:45-0500 Body weight 57.15 kg Avg Gurjit Gal [id number] [facility] 01-14-2021 09:45-0500 Diastolic blood pressure 72 mm[Hg] Avg Gurjit Gal [id number] [facility] 01-14-2021 09:45-0500 Systolic blood pressure 112 mm[Hg] Avg Gurjit Gal [id number] [facility] 09-28-2019 08:35-0400 BP Diastolic 68 mm[Hg] [facility] 09-28-2019 08:35-0400 BP Systolic 140 mm[Hg] [facility] 09-28-2019 08:35-0400 Pulse (Heart Rate) 92 /min [place] [facility], [place] 09-28-2019 08:35-0400 Pulse Oximetry 99 % [facility], [place] 09-28-2019 08:35-0400 Respiratory Rate 16 /min [facility] 09-28-2019 06:54-0400 Body Temperature 98.29 [degF] [facility] 09-27-2019 22:49-0400 BMI (Body Mass Index) 21.43 kg/m2 [facility] 09-27-2019 22:49-0400 Body weight 54.88 kg [facility] 09-27-2019 22:49-0400 Height 160 cm [facility], [place] 05-19-2019 19:55-0400 BP Diastolic 59 mm[Hg] [facility] 05-19-2019 19:55-0400 BP Systolic 114 mm[Hg] [facility], [place] 05-19-2019 19:55-0400 Pulse (Heart Rate) 66 /min [facility], [place] 05-19-2019 19:55-0400 Pulse Oximetry 100 % [facility], [place] 05-19-2019 19:55-0400 Respiratory Rate 18 /min [facility], [place] 05-19-2019 18:36-0400 BMI (Body Mass Index) 21.97 kg/m2 [facility] 05-19-2019 18:36-0400 Body Temperature 98.29 [degF] [facility] 05-19-2019 18:36-0400 Body weight 56.25 kg [facility], [place] 05-19-2019 18:36-0400 Height 160 cm [facility] 03-08-2019 18:31-0500 Body temperature 98.1 [degF] Peter Petty MD Work Phone: [facility] Work Phone: 03-08-2019 18:31-0500 Body weight 57.15 kg Peter Petty MD Work Phone: [email or web address] [facility] Work Phone: 03-08-2019 18:31-0500 Diastolic blood pressure 90 mm[Hg] Peter Petty MD Work Phone: [employer] Work Phone: 03-08-2019 18:31-0500 Heart rate 86 /min Peter Petty MD Work Phone: [employer] Work Phone: 03-08-2019 18:31-0500 Respiratory rate 20 /min Peter Petty MD Work Phone: [employer] Work Phone: 03-08-2019 18:31-0500 SaO2% (BldA) [Mass fraction] 100 % Peter Petty MD Work Phone: [employer] Work Phone: 03-08-2019 18:31-0500 Systolic blood pressure 139 mm[Hg] Peter Petty MD Work Phone: [employer] Work Phone: 01-12-2019 23:01-0500 Pulse Oximetry 99 % [facility] [employer], [place] 01-12-2019 22:49-0500 BP Diastolic 80 mm[Hg] [facility] [employer] [place] , [place] 01-12-2019 22:49-0500 BP Systolic 107 mm[Hg] [facility] [employer] [place] , [place] 01-12-2019 22:17-0500 Body Temperature 97.59 [degF] [facility] [employer] [place] 01-12-2019 22:17-0500 Body weight 55.02 kg [facility] [employer] [place] 01-12-2019 22:17-0500 Pulse (Heart Rate) 64 /min [facility] [employer] [facility] 01-12-2019 22:17-0500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 (unrecognized sec tion and content) 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 Start Date End Date Kelli Amaya MD PCP - General Family Medicine 05/28/17 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 Start Date End Date Kelli Amaya MD PCP - General Family Medicine 05/28/17 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 Start Date End Date Kelli Amaya MD PCP - General Family Medicine 05/28/17 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 Start Date End Date Kelli Amaya MD PCP - General Family Medicine 05/28/17 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 Start Date End Date Kelli Amaya MD PCP - General Family Medicine 05/28/17 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 [facility]. provides no warranty or guarantee of the accuracy or completeness of information in this document.
--- NOTE | 2024-11-09 20:37 | US_ITS ---
[facility] [place] [id number] Patient Name: DEVAN SANTANA MRN: [id number] date: 2000 Sex: F Assigned Patient Location: ER Current Patient Location: ED.MAIN Accession/Order Number: [id number] Exam Date: 11/09/2024 21:20 Report Date: 11/09/2024 23:28 At the request of: JACI MATTHEWS Procedure: US pelvis transvaginal TRANSABDOMINAL AND TRANSVAGINAL PELVIC ULTRASOUND HISTORY: Right lower quadrant pain FINDINGS: The uterus measures 8.4 x 4.2 x 4.8 cm. Retroflexed No uterine lesion identified. The endometrium has a total combined thickness of 2mm. The RIGHT ovary measures 2.5 x 1.4 x 2.1 cm. LEFT ovary measures 3.4 x 2.2 x 2.6 cm. Anechoic left ovarian cyst measures up to 2.1 cm Bilateral ovarian blood flow identified. No free fluid identified. There is no adnexal mass identified. US/US pelvis transvaginal IMPRESSION: 2.1 cm anechoic left ovarian cyst. Color-flow both ovaries. No adnexal mass. Retroflexed uterus. Impression dictated by: Sarkis Thomas M.D. 11/09/2024 11:28 PM Dictation Location: [place] [address] Electronically authenticated by: [id number] Y Date: 11/09/2024 23:28
--- NOTE | 2024-11-09 21:01 | ED.GENADUL1 ---
Documented by User: BYRON Shah 11/09/24 22:17 HPI HPI - General Adult General Chief complaint: Urogenital-Female Stated complaint: ABNORMAL BLEEDING, PELVIC PAIN, PAIN LEFT SIDE Time Seen by Provider: 11/09/24 20:04 Source: patient Mode of arrival: walk-in History of Present Illness HPI narrative: Patient is a 24-year-old female that presents the emergency department with complaints of vaginal bleeding that started as spotting about a week after her period was finished. She notes that it progressed from dark blood to brighter blood and eventually small clots. This resolved around November 04 but she was also having some pelvic cramping and pain that has persisted until today. Patient did have a vaginal in April and is currently breast-feeding. She does follow with Dr. Berry and states she did not follow-up with him for her 6-week check. She did make an appointment for Wednesday but states that she has also been feeling dizzy/lightheaded and has been anemic in the past. She also notes that around the same time the spotting and clots started she started to have a white discharge and pain with sex. She is not currently on any hormones or control. She has had 2 children vaginally, no abortions/miscarriages. She denies abdominal or pelvic surgical history. She also states that she has been having a headache and chills but states she took her temperature and it was normal at home. Related Data Home Medications ?Medication ?Instructions ?Recorded ?Confirmed No Known Home Medications 11/09/24 11/09/24 Allergies Allergy/AdvReac Type Severity Reaction Status Date / Time No Known Drug Allergies Allergy Verified 11/09/24 20:06 Opioid HPI Opioid Management Most Recent Opioid Data: Last Pain Scale 8 Today, 22:17 Last MAR Pain Assessment Today, 22:17 Ur Phencyclidine Scrn, (NEGATIVE) Negative 04/18/24, 05:35 Review of Systems ROS Status of ROS 10 or more systems reviewed and unremarkable except as noted in history and below PFSH PFSH Social History Highest level of school completed/degree received: 11th grade Little interest or pleasure in doing things: not at all Feeling down, depressed, or hopeless: not at all Exam Narrative Exam Narrative: General: No distress, age-appropriate Skin: Warm, dry, no pallor. No rash. Head: Normocephalic, atraumatic. Neck: Supple, non-tender. Eye: Pupils are equal, round and EOMI. No scleral icterus. Ears, Nose, Mouth, and Throat: No nasal mucosal hypertrophy. Oral mucosa is moist, no posterior oropharynx erythema, uvula is mid-line Cardiovascular: Regular Rate and Rhythm without murmur, gallop or rub. Respiratory: No accessory muscle use or respiratory distress. Lungs are clear to auscultation, no wheezing, rales or rhonchi Chest Wall: no tenderness Back: No midline thoracic or lumbar vertebral tenderness. Musculoskeletal: Full ROM of all extremities, no calf or popliteal tenderness GI: Abdomen is soft, non-distended, non tender to palpation. No masses appreciated. No rebound, guarding, or rigidity noted. There is some tenderness with palpation in the pelvic region above the mons pubis. Neurological: A&O x4. No cranial nerve dysfunction observed. No truncal ataxia. Moves all extremities. Sensation intact. Psychiatric: Cooperative and interactive. Normal mood and affect. Constitutional Vital Signs, click to edit/add: Last Vital Signs Temp 97.6 F 11/09/24 20:07 Pulse 71 11/09/24 20:07 Resp 16 11/09/24 20:07 BP 130/90 11/09/24 20:07 Pulse Ox 100 11/09/24 20:07 O2 Del Method Room Air 11/09/24 20:07 Common normals: external appearance normal, appearance of the vagina normal and appearance of the cervix normal External Female Exam: normal appearance of the urethra Speculum exam - vagina: vaginal discharge Vaginal discharge present: white Speculum exam - cervix: nulliparous and abnormal cervical discharge white OB/external & speculum: external exam normal and bleeding none Manual OB Exam: deferred Course Vital Signs Vital signs: Vital Signs Temperature 97.6 F 11/09/24 20:07 Pulse Rate 71 11/09/24 20:07 Respiratory Rate 16 11/09/24 20:07 Blood Pressure 130/90 11/09/24 20:07 Pulse Oximetry 100 11/09/24 20:07 Oxygen Delivery Method Room Air 11/09/24 20:07 Temperature 97.6 F 11/09/24 20:07 Pulse Rate 71 11/09/24 20:07 Respiratory Rate 16 11/09/24 20:07 Blood Pressure 130/90 11/09/24 20:07 Pulse Oximetry 100 11/09/24 20:07 Oxygen Delivery Method Room Air 11/09/24 20:07 Medical Decision Making MDM Narrative Medical decision making narrative: 24-year-old female that presents with multiple complaints of abnormal vaginal bleeding, vaginal discharge, pelvic pain, and dizziness/lightheadedness. No abdominal or pelvic surgeries. She follows with Dr Berry but did not see him post at her 6 week check up. She does have appointment with him next Wednesday but is more worried about the dizziness. She denies chest pain, shortness of breath, or abdominal pain. On arrival patient is nontoxic-appearing, in no distress, significant other and her 2 children are at bedside. Vital signs are stable. On pelvic exam the external genitalia, vagina, and cervix appear normal. There is no blood noted in the vagina or the cervical os. There is a mild amount of white discharge on pelvic exam. Wet prep and GC/chlamydia ordered. For patient's headache I am going to give her Toradol 50 mg IM. She does have a history of migraines but does not take any medication for them. At this time, 2200 I signed patient out to Dr Piper as patient Pelvic Ultrasound and Wet Prep results are pending. Differential Diagnosis Differential Diagnosis: Fibroids, uterine polyps, BV Lab Data Labs: Lab Results 11/09/24 11/09/24 Range/Units 20:05 21:00 WBC 11.8 H (4.0-11.0) 10^3/uL RBC 4.48 (4.20-5.40) 10^6/uL Hgb 12.3 (12.0-16.0) g/dL Hct 37.7 (36.0-48.0) % MCV 84.2 (81.0-99.0) fL MCH 27.5 (26.7-34.0) pg MCHC 32.6 (29.9-35.2) g/dL RDW 13.0 (11.0-15.0) % Plt Count 250 (150-450) 10^3/uL MPV 10.0 (9.5-13.5) fL Neut % (Auto) 68.9 (43.0-75.0) % Lymph % (Auto) 19.0 L (20.5-60.0) % [place] % (Auto) 7.0 (1.7-12.0) % Eos % (Auto) 4.2 (0.9-7.0) % Baso % (Auto) 0.6 (0.2-2.0) % Neut # (Auto) 8.1 H (1.4-6.5) 10^3/uL Lymph # (Auto) 2.2 (1.2-3.8) 10^3/uL [place] # (Auto) 0.8 (0.3-0.8) 10^3/uL Eos # (Auto) 0.5 (0.0-0.7) 10^3/uL Baso # (Auto) 0.1 (0.0-0.1) 10^3/uL Abs Immat Gran (auto) 0.04 H (0.00-0.03) 10^3/uL Imm/Tot Granulo (auto) 0.3 (0.0-0.5) % Sodium 140 (136-145) mmol/L Potassium 4.0 (3.5-5.1) mmol/L Chloride 104 (98-107) mmol/L Carbon Dioxide 26.7 (21.0-32.0) mmol/L Anion Gap 13.3 BUN 12.0 (7.0-18.0) mg/dL Creatinine 0.46 L (0.55-1.02) mg/dL Est GFR ( Amer) >60 (>=60 mL/min/1.73m^2) Est GFR (Non-Af Amer) >60 (>=60 mL/min/1.73m^2) BUN/Creatinine Ratio 26.1 Glucose 93 (74-106) mg/dL Calcium 9.4 (8.5-10.1) mg/dL Urine Color Lt. yellow (YELLOW) Urine Clarity Clear (CLEAR) Urine pH 7.0 (5.0-9.0) Ur Specific [place] 1.020 (1.005-1.025) Urine Protein Negative (NEG/TRACE) mg/dL Urine Glucose (UA) Negative (NEGATIVE) mg/dL Urine Ketones Trace A (NEGATIVE) mg/dL Urine Occult Blood Negative (NEGATIVE) Urine Nitrite Negative (NEGATIVE) Urine Bilirubin Negative (NEGATIVE) Urine Urobilinogen 0.2 (0.2-1.0) EU/dL Ur Leukocyte Esterase Negative (NEGATIVE) Urine RBC None seen (0-2) #/HPF Urine WBC 0-2 A (NONE SEEN) #/HPF Ur Squamous Epith Cells Rare (NONE/RARE) #/LPF Urine Crystals None seen (None Seen) #/HPF Amorphous Sediment Many Urine Bacteria Moderate A (NONE SEEN) #/HPF Urine Casts None seen (NONE SEEN) #/LPF Urine Mucus Small A (NONE SEEN) Ur [place] [place] HCG, Qual Negative (NEGATIVE) Discharge Plan Discharge Chief Complaint: Urogenital-Female Clinical Impression: Vaginitis, Abnormal vaginal bleeding Patient Disposition: Home, Self-Care Time of Disposition Decision: 23:26 Condition: Good Prescriptions / Home Meds: No Action No Known Home Medications Print Language: Polish Instructions: Ovarian Cyst (ED), Pelvic Pain in Women (ED), Menorrhagia (ED) Referrals: Meir Berry DO [Physician, SCIENCE CONSULTANT] - 1 week Physician,Non-Staff, [Primary Care Provider] - 1 week Documented by User: Chetna Piper MD 11/09/24 23:41 HPI HPI - General Adult General Chief complaint: Urogenital-Female Stated complaint: ABNORMAL BLEEDING, PELVIC PAIN, PAIN LEFT SIDE Time Seen by Provider: 11/09/24 20:04 Related Data Home Medications ?Medication ?Instructions ?Recorded ?Confirmed No Known Home Medications 11/09/24 11/09/24 Allergies Allergy/AdvReac Type Severity Reaction Status Date / Time No Known Drug Allergies Allergy Verified 11/09/24 20:06 Opioid HPI Opioid Management Most Recent Opioid Data: Last Pain Scale 8 Today, 22:17 Last MAR Pain Assessment Today, 22:17 Ur Phencyclidine Scrn, (NEGATIVE) Negative 04/18/24, 05:35 PFSH PFSH Social History Highest level of school completed/degree received: 11th grade Little interest or pleasure in doing things: not at all Feeling down, depressed, or hopeless: not at all Exam Constitutional Vital Signs, click to edit/add: Last Vital Signs Temp 97.6 F 11/09/24 20:07 Pulse 71 11/09/24 20:07 Resp 16 11/09/24 20:07 BP 130/90 11/09/24 20:07 Pulse Ox 100 11/09/24 20:07 O2 Del Method Room Air 11/09/24 20:07 Course Vital Signs Vital signs: Vital Signs Temperature 97.6 F 11/09/24 20:07 Pulse Rate 71 11/09/24 20:07 Respiratory Rate 16 11/09/24 20:07 Blood Pressure 130/90 11/09/24 20:07 Pulse Oximetry 100 11/09/24 20:07 Oxygen Delivery Method Room Air 11/09/24 20:07 Temperature 97.6 F 11/09/24 20:07 Pulse Rate 71 11/09/24 20:07 Respiratory Rate 16 11/09/24 20:07 Blood Pressure 130/90 11/09/24 20:07 Pulse Oximetry 100 11/09/24 20:07 Oxygen Delivery Method Room Air 11/09/24 20:07 Medical Decision Making MDM Narrative Medical decision making narrative: 24-year-old female that presents with multiple complaints of abnormal vaginal bleeding, vaginal discharge, pelvic pain, and dizziness/lightheadedness. No abdominal or pelvic surgeries. She follows with Dr Berry but did not see him post at her 6 week check up. She does have appointment with him next Wednesday but is more worried about the dizziness. She denies chest pain, shortness of breath, or abdominal pain. On arrival patient is nontoxic-appearing, in no distress, significant other and her 2 children are at bedside. Vital signs are stable. On pelvic exam the external genitalia, vagina, and cervix appear normal. There is no blood noted in the vagina or the cervical os. There is a mild amount of white discharge on pelvic exam. Wet prep and GC/chlamydia ordered. For patient's headache I am going to give her Toradol 50 mg IM. She does have a history of migraines but does not take any medication for them. At this time, 2200 I signed patient out to Dr Piper as patient Pelvic Ultrasound and Wet Prep results are pending. Patient was seen and evaluated in conjunction with the physician vet assistant. She presents for evaluation of multiple complaints including abnormal vaginal bleeding which has stopped. Vaginal discharge, pelvic pain, dizziness and lightheadedness with a generalized headache. She has not had any fever. Her physical exam and vital signs are normal. Pelvic exam was performed and is pending at this time but there was nothing noted to be unusual during the part of the exam. Patient has a normal white count and stable hemoglobin. Electrolytes are normal. Urine is negative for infection, culture is pending at this time. She was medicated with Toradol with clinical improvement in her pelvic pain and headache. The results of her ultrasound show a 2 cm left ovarian cyst otherwise normal pelvic ultrasound. The results of this ultrasound were discussed with the patient and her boyfriend/. She was given a copy of the results to share with Dr. Berry when she sees him next Wednesday. She will be discharged home with a prescription for ibuprofen to use as needed for headaches, pelvic pain with recommendation to return to emergency department for worsening symptoms or any concerns. She does admit that she is fatigued from having an infant and a toddler as well as breast-feeding. She was encouraged to drink plenty of fluids and follow-up closely with Dr. Berry and her family physician. At this time she is stable for discharge. Lab Data Labs: Lab Results 11/09/24 11/09/24 Range/Units 20:05 21:00 WBC 11.8 H (4.0-11.0) 10^3/uL RBC 4.48 (4.20-5.40) 10^6/uL Hgb 12.3 (12.0-16.0) g/dL Hct 37.7 (36.0-48.0) % MCV 84.2 (81.0-99.0) fL MCH 27.5 (26.7-34.0) pg MCHC 32.6 (29.9-35.2) g/dL RDW 13.0 (11.0-15.0) % Plt Count 250 (150-450) 10^3/uL MPV 10.0 (9.5-13.5) fL Neut % (Auto) 68.9 (43.0-75.0) % Lymph % (Auto) 19.0 L (20.5-60.0) % [place] % (Auto) 7.0 (1.7-12.0) % Eos % (Auto) 4.2 (0.9-7.0) % Baso % (Auto) 0.6 (0.2-2.0) % Neut # (Auto) 8.1 H (1.4-6.5) 10^3/uL Lymph # (Auto) 2.2 (1.2-3.8) 10^3/uL [place] # (Auto) 0.8 (0.3-0.8) 10^3/uL Eos # (Auto) 0.5 (0.0-0.7) 10^3/uL Baso # (Auto) 0.1 (0.0-0.1) 10^3/uL Abs Immat Gran (auto) 0.04 H (0.00-0.03) 10^3/uL Imm/Tot Granulo (auto) 0.3 (0.0-0.5) % Sodium 140 (136-145) mmol/L Potassium 4.0 (3.5-5.1) mmol/L Chloride 104 (98-107) mmol/L Carbon Dioxide 26.7 (21.0-32.0) mmol/L Anion Gap 13.3 BUN 12.0 (7.0-18.0) mg/dL Creatinine 0.46 L (0.55-1.02) mg/dL Est GFR ( Amer) >60 (>=60 mL/min/1.73m^2) Est GFR (Non-Af Amer) >60 (>=60 mL/min/1.73m^2) BUN/Creatinine Ratio 26.1 Glucose 93 (74-106) mg/dL Calcium 9.4 (8.5-10.1) mg/dL Urine Color Lt. yellow (YELLOW) Urine Clarity Clear (CLEAR) Urine pH 7.0 (5.0-9.0) Ur Specific [place] 1.020 (1.005-1.025) Urine Protein Negative (NEG/TRACE) mg/dL Urine Glucose (UA) Negative (NEGATIVE) mg/dL Urine Ketones Trace A (NEGATIVE) mg/dL Urine Occult Blood Negative (NEGATIVE) Urine Nitrite Negative (NEGATIVE) Urine Bilirubin Negative (NEGATIVE) Urine Urobilinogen 0.2 (0.2-1.0) EU/dL Ur Leukocyte Esterase Negative (NEGATIVE) Urine RBC None seen (0-2) #/HPF Urine WBC 0-2 A (NONE SEEN) #/HPF Ur Squamous Epith Cells Rare (NONE/RARE) #/LPF Urine Crystals None seen (None Seen) #/HPF Amorphous Sediment Many Urine Bacteria Moderate A (NONE SEEN) #/HPF Urine Casts None seen (NONE SEEN) #/LPF Urine Mucus Small A (NONE SEEN) Ur [place] [place] HCG, Qual Negative (NEGATIVE) Discharge Plan Discharge Chief Complaint: Urogenital-Female Clinical Impression: Vaginitis, Abnormal vaginal bleeding Patient Disposition: Home, Self-Care Time of Disposition Decision: 23:26 Condition: Good Prescriptions / Home Meds: No Action No Known Home Medications Print Language: Polish Instructions: Ovarian Cyst (ED), Pelvic Pain in Women (ED), Menorrhagia (ED) Referrals: Meir Berry DO [Physician, SCIENCE CONSULTANT] - 1 week Physician,Non-Staff, [Primary Care Provider] - 1 week
--- NOTE | 2024-11-09 21:05 | PC.NURSE ---
pt to [place] at this time with engineering laboratory technician via wheelchair.
[2024-11-09 21:18] LABS: Hematocrit 37.7 % (36.0-48.0); Hemoglobin 12.3 g/dL (12.0-16.0); Immature Granulocytes Abs Auto 0.04 10^3/uL (0.00-0.03); Immature Granulocytes Pct Auto 0.3 % (0.0-0.5); Lymphocytes Absolute Auto 2.2 10^3/uL (1.2-3.8); Mean Corpuscular HGB Conc 32.6 g/dL (29.9-35.2); Mean Corpuscular Hemoglobin 27.5 pg (26.7-34.0); Mean Corpuscular Volume 84.2 fL (81.0-99.0); Platelet Count 250 10^3/uL (150-450); Red Blood Count 4.48 10^6/uL (4.20-5.40); White Blood Count 11.8 10^3/uL (4.0-11.0)
[2024-11-09 21:21] LABS: Glucose Urine UA NEGATIVE (NEGATIVE)
[2024-11-09 21:23] LABS: HCG Qualitative Urine* NEGATIVE (NEGATIVE)
[2024-11-09 21:28] LABS: Anion Gap 13.3; Blood Urea Nitrogen 12.0 mg/dL (7.0-18.0); Calcium 9.4 mg/dL (8.5-10.1); Carbon Dioxide 26.7 mmol/L (21.0-32.0); Chloride 104 mmol/L (98-107); Estimated GFR (African America >60 (>=60 mL/min/1.73m^2); Estimated GFR (Non-African Ame >60 (>=60 mL/min/1.73m^2); Glucose 93 mg/dL (74-106); Potassium 4.0 mmol/L (3.5-5.1); Sodium 140 mmol/L (136-145)
[2024-11-09 21:29] LABS: Cast Seen? NONE SEEN #/LPF (NONE SEEN); Crystals Seen? None Seen #/HPF (None Seen); Urine Culture Indicated YES-FRMC
[2024-11-09] MEDS: KETOROLAC TROMETHAMINE 30 MG/ML VIAL 15 MG IM (22:17)
[2024-11-09 23:38] VITALS: BP 116/81; PULSE 61; TEMP 36.7; O2SAT 98
--- NOTE | 2024-11-09 23:39 | PC.NURSE ---
i gave this patient verbal and written discharge orders along with 1 Rx and this patient voices yes to understanding these discharge orders and Rx. at time of discharge this patient voices no concerns, needs and shows no signs of distress
[2024-11-13 21:07] LABS: Neisseria gonorrhoeae, NAA Negative (Negative)
== END 2024-11-09 23:41 | disposition home or self-care (01) ==
PROVIDERS: Physician Assistant; Emergency Provider Emergency Medicine
DX: N76.0 Acute vaginitis (principal); N83.202 Unspecified ovarian cyst, left side; N93.9 Abnormal uterine and vaginal bleeding, unspecified; R42 Dizziness and giddiness; R51.9 Headache, unspecified
CPT/HCPCS: 36415; 76830; 80048; 81001; 84703; 85025; 87086; 87210; 87491; 87591; 96372; 99285; J1885